=== PATIENT | female | born 1950 | race Caucasian/White ===

== ENCOUNTER → 2020-05-18 10:41 | Outpatient (BNVA) | payer MEDICARE, SELFPAY | PROVIDERS: PCP Family Medicine; Visit Provider Surgery | DX: K64.5 Perianal venous thrombosis (principal) | CPT/HCPCS: 46600; 99202 ==

== ENCOUNTER → 2021-06-02 10:25 | Outpatient (BNVA) | payer MEDICARE, SELFPAY | PROVIDERS: PCP Family Medicine; Visit Provider Anesthesiology | DX: M96.1 Postlaminectomy syndrome, not elsewhere classified (principal); G89.4 Chronic pain syndrome; F32.2 Major depressive disorder, single episode, severe without psychotic features | CPT/HCPCS: 99202 ==

== ENCOUNTER 2022-06-12 13:25 | Inpatient (IN) | payer MEDICARE, SELFPAY ==
--- NOTE | ~2022-06-12 | CT_ITS ---
EXAMINATION: CT ABDOMEN AND PELVIS WITH CONTRAST CLINICAL INFORMATION: Diarrhea and pain COMPARISON: Baseline 07/22/2014 TECHNIQUE: Multidetector volumetric images were obtained from the superior aspect of the liver through the pubic symphysis following administration 85 mL of Omnipaque 350 intravenous contrast. Sagittal and coronal reformatted images were obtained on the technologist's workstation. Oral contrast: No This CT examination was performed using dose optimization techniques as appropriate, variously including the following: *Automated exposure control *Adjustment of mA and/or kV according to patient size (this includes techniques or standardized protocols for targeted exams where dose is matched to indication/reason for exam; i.e. extremities or head) *Use of iterative reconstruction technique DLP: 302 mGy-cm FINDINGS: LUNG BASES: The visualized lung bases are unremarkable. Large axial type hiatus hernia. LIVER, GALLBLADDER, AND BILIARY TREE: The liver is normal in size, shape, and attenuation. No focal hepatic lesion or biliary ductal dilatation is present. The gallbladder is unremarkable with no evidence of radiopaque gallstones, gallbladder wall thickening, or obvious pericholecystic inflammatory changes. PANCREAS: Unremarkable. SPLEEN: Unremarkable. ADRENAL GLANDS: Unremarkable. KIDNEYS AND URETERS: The kidneys are normal in size, shape, and attenuation. No hydronephrosis, hydroureter, or calculi seen. No perinephric stranding. Incidental small renal cortical cysts left mid pole subcentimeter in size. Bosniak 1. No follow-up indicated. BLADDER: Unremarkable. GASTROINTESTINAL TRACT: There is a small bowel resection in the left abdomen with evidence for early obstruction. Please see allan image. In addition, there is relative sequentially thick-walled colon noted within the right pelvis which warrants lower GI assessment to exclude a mass. No obstruction. No enlarged lymph nodes. ABDOMINAL WALL: No significant hernia is appreciated. LYMPH NODES: Normal. VASCULAR: Unremarkable. PELVIC VISCERA: Unremarkable. OSSEOUS STRUCTURES: Vertebroplasty changes L3 with moderate compression. Superior endplate compression L4. Similar finding L1. Notable compression of the T10 vertebral body seen in a limited fashion. Healed deformity of the left pubic bone. CT/CT abdomen pelvis w IV con IMPRESSION: 1. Evidence for early small bowel obstruction with transition point within the left abdomen where there is a small bowel intussusception. Surgical assessment indicated. Please see allan image. 2. Thick-walled colon within the right pelvis within the sigmoid colon which warrants lower GI assessment to exclude a mass. 3. Multiple compression fractures as above. Fleischner guidelines were followed.
--- NOTE | ~2022-06-12 | CT_ITS ---
EXAMINATION: CT ABDOMEN AND PELVIS WITH CONTRAST CLINICAL INFORMATION: Intussusception. Question small bowel obstruction. COMPARISON: Previous CT of the abdomen and pelvis 06/12/2022 TECHNIQUE: Multidetector volumetric images were obtained from the superior aspect of the liver through the pubic symphysis following administration 85 mL of Omnipaque 350 intravenous contrast. Sagittal and coronal reformatted images were obtained on the technologist's workstation. Oral contrast: Yes This CT examination was performed using dose optimization techniques as appropriate, variously including the following: *Automated exposure control *Adjustment of mA and/or kV according to patient size (this includes techniques or standardized protocols for targeted exams where dose is matched to indication/reason for exam; i.e. extremities or head) *Use of iterative reconstruction technique DLP: 164 mGy-cm FINDINGS: LUNG BASES: Esophageal hernia. Mild subsegmental atelectasis at the right lung base. LIVER, GALLBLADDER, AND BILIARY TREE: The liver is normal in size, shape, and attenuation. No focal hepatic lesion or biliary ductal dilatation is present. The gallbladder is unremarkable with no evidence of radiopaque gallstones, gallbladder wall thickening, or obvious pericholecystic inflammatory changes. PANCREAS: Unremarkable. SPLEEN: Unremarkable. ADRENAL GLANDS: Unremarkable. KIDNEYS AND URETERS: The kidneys are normal in size, shape, and attenuation. No hydronephrosis, hydroureter, or calculi seen. Small left renal cyst. No imaging follow-up needed. BLADDER: Unremarkable. GASTROINTESTINAL TRACT: Small bowel into the exception is no longer seen. There is no evidence of obstruction. There is question area of wall thickening of the small bowel in the left lower quadrant axial image 46 series 3. No definite small bowel lesion is appreciated. There is diffuse wall thickening and edema of the colon suggestive of colitis. The appendix is not seen. There is a large esophageal hernia. ABDOMINAL WALL: 1.5 x 2.3 cm small cyst or fluid collection in the right groin, question representing hernia containing fluid versus degeneration lymph node. This could be better assessed with ultrasound if clinically indicated. LYMPH NODES: Normal. VASCULAR: Severe atherosclerotic disease. No aneurysm. PELVIC VISCERA: Unremarkable. OSSEOUS STRUCTURES: Old trauma to the pelvis. Old L3 compression fracture and cement augmentation. Mild old L1 and L4 compression fractures. Moderate to severe old T10 compression fracture. CT/CT abdomen pelvis w IV con IMPRESSION: Small bowel intussusception no longer seen. Question area of wall thickening of the small bowel in the left lower quadrant in the region of previous intussusception. No definite small bowel mass appreciated. Diffuse wall thickening of the colon suggestive of colitis. Large esophageal hernia. Stable multiple compression fractures and evidence of old trauma to the pelvis. Question small right groin hernia containing fluid versus cystic lymph node.. Fleischner guidelines were followed.
--- NOTE | 2022-06-12 15:20 | ED.GENADULT ---
HPI - General Adult General Chief complaint: Nausea/Vomiting/Diarrhea <TYSON Helton - Last Filed: 06/12/22 15:37> Stated complaint: ibs, constant bowel movements. <TYSON Helton - Last Filed: 06/12/22 15:37> Time Seen by Provider: 06/12/22 16:14 <TYSON Helton - Last Filed: 06/12/22 15:37> Source: patient <TYSON Serna - Last Filed: 06/12/22 18:12> Mode of arrival: wheelchair <TYSON Serna Last Filed: 06/12/22 18:12> History of Present Illness HPI narrative: 72-year-old female with a past medical history of anxiety, chronic pain syndrome, HTN, post-laminectomy syndrome, depression, IBS, diverticulitis, presenting to the ED complaining of persistent nonbloody liquid diarrhea x4 days s/p finishing course of Augmentin and Prednisone for sinusitis. Admits to being incontinent of stool in her bed in all over her carpet. Reports generalized abdominal discomfort, fatigue/ weakness and lightheadedness. Denies bloody stools/ melena, headache, CP /SOB, nausea, vomiting, dysuria /hematuria <TYSON Serna Last Filed: 06/12/22 18:12> Onset (ago): day(s) <TYSON Serna - Last Filed: 06/12/22 18:12> Related Data Home medications: Home Medications Medication Instructions Recorded Confirmed ibuprofen 800 mg tablet 800 mg PO BID 05/18/20 06/12/22 lisinopril 20 mg tablet 20 mg PO DAILY 05/18/20 06/12/22 lorazepam 1 mg tablet 1 mg PO BID 05/18/20 06/12/22 pantoprazole 40 mg tablet,delayed 40 mg PO BID 05/18/20 06/12/22 release amlodipine 10 mg tablet 1 tab PO DAILY 06/12/22 06/12/22 duloxetine 30 mg capsule,delayed 1 cap PO BID 06/12/22 06/12/22 release sertraline 50 mg tablet 1 tab PO BID 06/12/22 06/12/22 <TYSON Helton Last Filed: 06/12/22 15:37> Allergies/adverse reactions: Allergies Allergy/AdvReac Type Severity Reaction Status Date / Time Sulfa (Sulfonamide Allergy Intermediate ITCHING/DARSHAN Unverified 06/02/21 10:57 Antibiotics) H [SULFA (SULFONAMIDE ANTIBIOTICS)] oxycodone [Percocet] Allergy Unknown Unknown Verified 06/02/21 10:57 sulfadiazine Allergy Unknown Unknown Verified 06/02/21 10:57 tree nut [TREE NUT] AdvReac Intermediate GI UPSET Unverified 06/02/21 10:57 acetaminophen [From PERCOCET] AdvReac Unknown NAUSEA Unverified 06/02/21 10:57 Flonase Allergy Unknown Unknown Uncoded 06/02/21 10:57 ZyrTEC Allergy Unknown Unknown Uncoded 06/02/21 10:57 From DEMEROL AdvReac Unknown NAUSEA Uncoded 06/02/21 10:57 From PERCOCET AdvReac Unknown NAUSEA Uncoded 06/02/21 10:57 <TYSON Helton - Last Filed: 06/12/22 15:37> Review of Systems Review of Systems: Constitutional: No Fever, No Chills, +Fatigue, + Malaise ENT/Mouth: No Hearing loss, No Ear Pain, No Nasal Congestion, No Sinus Pain, No Hoarseness, No sore throat, No Rhinorrhea, No Swallowing Difficulty Eyes: No Eye Pain, No Swelling, No Redness, No Vision Changes Cardiovascular: No Chest Pain, No SOB, No Edema, No Palpitations Respiratory: No Cough, No Sputum, No Dyspnea Gastrointestinal: No Nausea, No Vomiting, + Diarrhea, No Constipation, + Abdominal pain, No Hematochezia, No Melena Genitourinary: No irregular bleeding, No Dysuria, No Urinary Frequency, No Hematuria, No Urinary Incontinence/retention, No Flank Pain Musculoskeletal: No joint pain, No Myalgias, No Joint Swelling Skin: No Skin Lesions, No rash Neuro: + Weakness, No Numbness, No Loss of Consciousness, No Dizziness, No Headache <TYSON Serna Last Filed: 06/12/22 18:12> Yes all other systems are reviewed and are negative <TYSON Serna Last Filed: 06/12/22 18:12> Constitutional: Constitutional: Reports as per HPI <TYSON Serna - Last Filed: 06/12/22 18:12> Neurologic: Denies Abnormal speech present <TYSON Serna - Last Filed: 06/12/22 18:12> [facility] Past Medical History Attestation statement: The following information was validated with the patient. <TYSON Serna - Last Filed: 06/12/22 18:12> Medical History: Medical History Anxiety Chronic pain syndrome Hypertension Postlaminectomy syndrome Severe major depression Thrombosed hemorrhoids <TYSON Helton - Last Filed: 06/12/22 15:37> Surgical History: Surgical History History of bunionectomy History of D&C History of foot surgery History of hammer toe correction History of hand surgery <TYSON Helton - Last Filed: 06/12/22 15:37> Family History Family History: Family History Father Hypertension Heart disease Mother History of lumpectomy <TYSON Helton - Last Filed: 06/12/22 15:37> Social History Social History: Social History Alcohol intake: current Alcohol intake frequency: holidays/special occasions only Alcohol type: wine Advance Directives: No Advance Directives Information Provided: No <TYSON Helton - Last Filed: 06/12/22 15:37> Physical Exam ED Vital Signs: Vital Signs - 24 hr 06/12/22 15:21 06/12/22 19:16 Temperature 98 F 98.9 F Pulse Rate 100 95 Respiratory Rate 16 16 Blood Pressure 83/51 L 129/52 L Pulse Oximetry 99 98 Oxygen Delivery Method Room Air Room Air BMI result Body Mass Index 18.4 <TYSON Helton - Last Filed: 06/12/22 15:37> Vital Signs - 24 hr 06/12/22 15:21 06/12/22 19:16 Temperature 98 F 98.9 F Pulse Rate 100 95 Respiratory Rate 16 16 Blood Pressure 83/51 L 129/52 L Pulse Oximetry 99 98 Oxygen Delivery Method Room Air Room Air BMI result Body Mass Index 18.4 <TYSON Serna - Last Filed: 06/12/22 18:12> Vital Signs - 24 hr 06/12/22 15:21 06/12/22 19:16 Temperature 98 F 98.9 F Pulse Rate 100 95 Respiratory Rate 16 16 Blood Pressure 83/51 L 129/52 L Pulse Oximetry 99 98 Oxygen Delivery Method Room Air Room Air BMI result Body Mass Index 18.4 <TYSON Ring - Last Filed: 06/12/22 19:26> Const General: cooperative, no acute distress, alert and awake <TYSON Serna - Last Filed: 06/12/22 18:12> Orientation/consciousness: patient oriented x3 <TYSON Serna - Last Filed: 06/12/22 18:12> Limitations: no limitations <TYSON Serna - Last Filed: 06/12/22 18:12> HENMT Head: Yes normal to inspection and Yes atraumatic <TYSON Serna - Last Filed: 06/12/22 18:12> Ears: hearing grossly normal bilaterally <TYSON Serna - Last Filed: 06/12/22 18:12> General nose exam: Normal external nose present <TYSON Serna - Last Filed: 06/12/22 18:12> Face and sinus: Yes normal facial exam <TYSON Serna - Last Filed: 06/12/22 18:12> Eyes General: appearance normal, both eyes and all related structures <TYSON Serna - Last Filed: 06/12/22 18:12> EOM: EOMs intact bilaterally <TYSON Serna - Last Filed: 06/12/22 18:12> Neck Neck: Yes normal visual inspection and Yes no meningeal signs <TYSON Serna - Last Filed: 06/12/22 18:12> Resp Effort & Inspection: normal respiratory effort and no respiratory distress <TYSON Serna - Last Filed: 06/12/22 18:12> Auscultation: clear to auscultation bilaterally, no crackles, no rales, no rhonchi and no wheezes <Kathy Chaparro PA - Last Filed: 06/12/22 18:12> Cardio Rate: regular rate <Kathy Pouljuan PA - Last Filed: 06/12/22 18:12> Heart sounds: S1 normal heart sound present and S2 normal heart sound present <Kathy Chaparro PA - Last Filed: 06/12/22 18:12> GI Inspection: Yes normal to inspection <Kathy Chaparro PA - Last Filed: 06/12/22 18:12> Palpation (GI): Soft to palpation, Tenderness to palpation present (GI) (diffusely) with no rebound tenderness, no guarding and not rigid <Kathy Chaparro PA - Last Filed: 06/12/22 18:12> General: Yes no CVA tenderness <Kathy Chaparro PA - Last Filed: 06/12/22 18:12> Back/Spine/Pelvis Back: no CVA tenderness <Kathy Chaparro PA - Last Filed: 06/12/22 18:12> Skin Rashes: no rashes <Kathy Chaparro PA - Last Filed: 06/12/22 18:12> Wounds: no wounds <Kathy Chaparro PA - Last Filed: 06/12/22 18:12> Neuro General: patient oriented x3, tone normal, moves all extremities and no meningeal signs <Kathy Chaparro PA - Last Filed: 06/12/22 18:12> Cognition (Neuro): normal cognition <Kathy Chaparro PA - Last Filed: 06/12/22 18:12> Speech: No Abnormal speech present <Kathy Chaparro PA - Last Filed: 06/12/22 18:12> Extrem General: Yes normal to inspection <Kathy Chaparro PA - Last Filed: 06/12/22 18:12> Course Course Course Narrative: RME - 72 yo female with history of anxiety, HTN, hemorrhoids, depression, chronic pain syndrome, IBS w/ diarrhea (follows w/ Ty) who presents to the ER for evaluation of liquid stool for the last 4 days. She states she was incontinence . Has been sick for 5 weeks with sneezing, runny nose, congestion and recently treated with abx and steroids. She was incontinent of stool in her bed and on the floor because she couldn't make it in time. She feels weak and unwell. In triage BP soft 80/50s, awake and alert but appears frail and unwell. Will get GI workup, stool studies including C diff, start IVF resuscitation. <TYSON Helton - Last Filed: 06/12/22 15:37> RME - 72 yo female with history of anxiety, HTN, hemorrhoids, depression, chronic pain syndrome, IBS w/ diarrhea (follows w/ Ty) who presents to the ER for evaluation of liquid stool for the last 4 days. She states she was incontinence . Has been sick for 5 weeks with sneezing, runny nose, congestion and recently treated with abx and steroids. She was incontinent of stool in her bed and on the floor because she couldn't make it in time. She feels weak and unwell. In triage BP soft 80/50s, awake and alert but appears frail and unwell. Will get GI workup, stool studies including C diff, start IVF resuscitation. 1711-- leukocytosis of 15.0, BUN 23 likely from dehydration. still low suspicion for severe sepsis. Magnesium low 1.5 >> 2 g IV repletion ordered. Lactic acid negative - COVID-19 and influenza negative -1800--ED care transferred to T[facility] Garay pending UA, CT, stool studies and anticipated admission <TYSON Serna - Last Filed: 06/12/22 18:12> Reevaluation(s) Reevaluation #1: Patient noted to be positive for C diff, therefore I did administer metronidazole due to the high suspicion. UA still pending. However, patient will be admitted to the hospital for further intervention and treatment. <TYSON Ring - Last Filed: 06/12/22 19:26> Time: 19:26 <TYSON Ring - Last Filed: 06/12/22 19:26> Medications Administered Discontinued Medications Generic Name Dose Route Start Last Admin Trade Name Freq PRN Reason Stop Dose Admin Sodium Chloride 1,000 mls @ 999 mls/hr 06/12/22 16:30 06/12/22 17:32 Ns IV 06/12/22 17:30 999 mls/hr .Q1H1M POOL Administration Magnesium Sulfate 2 gm in 50 mls @ 25 mls/hr 06/12/22 17:21 06/12/22 19:22 Magnesium Sulfate/H2o IV 06/12/22 19:20 25 mls/hr ONCE ONE Administration Iohexol 100 ml 06/12/22 18:32 06/12/22 18:33 Iohexol 350 Mg/Ml 100 Ml Infus..Btl IV 06/12/22 18:33 85 ml ONCE ONE Administration <TYSON Helton - Last Filed: 06/12/22 15:37> Medications Administered Discontinued Medications Generic Name Dose Route Start Last Admin Trade Name Freq PRN Reason Stop Dose Admin Sodium Chloride 1,000 mls @ 999 mls/hr 06/12/22 16:30 06/12/22 17:32 Ns IV 06/12/22 17:30 999 mls/hr .Q1H1M POOL Administration Magnesium Sulfate 2 gm in 50 mls @ 25 mls/hr 06/12/22 17:21 06/12/22 19:22 Magnesium Sulfate/H2o IV 06/12/22 19:20 25 mls/hr ONCE ONE Administration Iohexol 100 ml 06/12/22 18:32 06/12/22 18:33 Iohexol 350 Mg/Ml 100 Ml Infus..Btl IV 06/12/22 18:33 85 ml ONCE ONE Administration <TYSON Serna - Last Filed: 06/12/22 18:12> Medications Administered Discontinued Medications Generic Name Dose Route Start Last Admin Trade Name Freq PRN Reason Stop Dose Admin Sodium Chloride 1,000 mls @ 999 mls/hr 06/12/22 16:30 06/12/22 17:32 Ns IV 06/12/22 17:30 999 mls/hr .Q1H1M POOL Administration Magnesium Sulfate 2 gm in 50 mls @ 25 mls/hr 06/12/22 17:21 06/12/22 19:22 Magnesium Sulfate/H2o IV 06/12/22 19:20 25 mls/hr ONCE ONE Administration Iohexol 100 ml 06/12/22 18:32 06/12/22 18:33 Iohexol 350 Mg/Ml 100 Ml Infus..Btl IV 06/12/22 18:33 85 ml ONCE ONE Administration <TYSON Ring - Last Filed: 06/12/22 19:26> Medical Decision Making Medical Decision Making MDM Narrative: 72-year-old female with a past medical history of anxiety, chronic pain syndrome, HTN, post-laminectomy syndrome, depression, IBS, diverticulitis, presenting to the ED complaining of persistent nonbloody liquid diarrhea x4 days s/p finishing course of Augmentin and Prednisone for sinusitis. On exam hypotensive and mildly tachycardic likely from dehydration / volume loss, abdomen soft diffusely tender, no rebound or guarding, no pedal edema, no CVA tenderness. Concern for IBS flare vs colitis vs C diff. Concern for metabolic abnormalities and dehydration. Rule out infectious etiology. Low suspicion for severe sepsis at this time Plan: EKG, labs, UA, CT AP, IVF, admission <TYSON Serna - Last Filed: 06/12/22 18:12> Differential Diagnoses: Differential diagnosis ( as above) <TYSON Serna - Last Filed: 06/12/22 18:12> Consideration of admission/observation: Consideration of Admission/Observation <TYSON Serna - Last Filed: 06/12/22 18:12> Lab Attestation: I reviewed the patient's lab results. <TYSON Serna - Last Filed: 06/12/22 18:12> Non-ED record review: Review of External (Non-ED) Record External record reviewed:: Outpatient record, Prior outpatient labs and Prior outpatient radiology <TYSON Serna - Last Filed: 06/12/22 18:12> Critical Care Time Critical Care Time Critical Care Time: Yes <TYSON Serna - Last Filed: 06/12/22 18:12> Total Critical Care Time: 35 <TYSON Serna Last Filed: 06/12/22 18:12> Attestation: I have personally provided critical care time exclusive of time spent on separately billable procedures. Time includes review of lab data, radiology results, discussion with consultants, and monitoring for potential decompensation. Intervention performed as documented. <TYSON Serna Last Filed: 06/12/22 18:12> Discharge Plan Discharge Clinical Impression: Clostridium difficile infection <TYSON Helton - Last Filed: 06/12/22 15:37> Patient Disposition: Admitted As Inpatient <TYSON Helton - Last Filed: 06/12/22 15:37> Prescriptions: No Action amlodipine 10 mg tablet 1 tab PO DAILY sertraline 50 mg tablet 1 tab PO BID duloxetine 30 mg capsule,delayed release(DR/EC) 1 cap PO BID lorazepam 1 mg tablet 1 mg PO BID lisinopril 20 mg tablet 20 mg PO DAILY pantoprazole 40 mg tablet,delayed release (DR/EC) 40 mg PO BID ibuprofen 800 mg tablet 800 mg PO BID <TYSON Helton - Last Filed: 06/12/22 15:37>
[2022-06-12 15:21] VITALS: BP 83/51; PULSE 100; RESP 16; TEMP 36.6; O2SAT 99; BMI 18.4
--- NOTE | 2022-06-12 16:23 | ECG_ITS ---
Test Reason : ABDOMINAL PAIN Blood Pressure : / mmHG Vent. Rate : 096 BPM Atrial Rate : 096 BPM P-R Int : 134 ms QRS Dur : 072 ms QT Int : 372 ms P-R-T Axes : 090 029 104 degrees QTc Int : 469 ms Artifact in tracing Sinus rhythm with Premature atrial complexes Nonspecific ST and T wave abnormality Abnormal ECG When compared with ECG of 15-JAN-2016 11:31, Nonspecific T wave abnormality has replaced inverted T waves in Inferior leads Nonspecific T wave abnormality now evident in Lateral leads Referred By: Kathy Chaparro Electronically Signed By:CUCO RUSH
[2022-06-12 16:24] LABS: Basophils Absolute Auto 0.1 X10*3/uL (0.0-0.2); Basophils Percent Auto 0.3 % (0-2); Eosinophils Percent Auto 0.3 % (0-4); Hematocrit 34.3 % (37.0-47.0); Hemoglobin 11.7 g/dl (12.0-16.0); Imm Gran Abs Auto 0.12 X10*3/uL (0.00-0.03); Imm Gran Pct Auto 0.8 % (0.0-0.4); Lymphocytes Absolute Auto 0.7 X10*3/uL (1.2-4.9); Lymphocytes Percent Auto 4.4 % (20-40); MANUAL DIFF FLAG NO; Mean Corpuscular HGB Conc 34.1 g/dl (31.0-35.0); Mean Corpuscular Hemoglobin 34.9 pg (27.0-33.0); Mean Corpuscular Volume 102.4 fL (80.0-98.0); Mean Platelet Volume 10.6 fL (9.4-12.3); Monocytes Percent Auto 6.4 % (2-11); Neutrophils Absolute Auto 13.2 x10*3/uL (2.0-8.3); Neutrophils Percent Auto 87.8 % (45-73); Platelet Count 233 X10*3/uL (160-400); Red Blood Count 3.35 X10*6/uL (4.20-5.50); Red Cell Distribution Width 17.2 % (11.0-16.0)
[2022-06-12 16:36] LABS: Lactic Acid 1.5 mmol/L (0.5-2.0)
[2022-06-12 16:47] LABS: Alanine Aminotransferase 13 U/L (0-31); Albumin Level 4.1 g/dL (3.5-5.0); Alkaline Phosphatase 76 U/L (39-117); Anion Gap 18 (12-20); Aspartate Amino Transferase 26 U/L (5-31); Bilirubin Direct 0.5 mg/dL (0.0-0.5); Bilirubin Total 1.7 mg/dL (0.0-1.0); Blood Urea Nitrogen 23 mg/dL (9-16); Calcium 9.1 mg/dL (8.4-10.2); Carbon Dioxide 19 mmol/L (22-29); Chloride 103 mmol/L (96-108); Creatinine Clr Calc Pharmacy 28.8; Estimated Glomerular Filt Rate 37; Glucose Random 101 mg/dL (60-115); Magnesium 1.5 mg/dL (1.6-2.6); Potassium 4.4 mmol/L (3.3-5.1); Sodium 136 mmol/L (135-145); Total Protein 6.7 g/dL (6.5-8.0)
[2022-06-12 16:55] LABS: COVID-19 Test Negative (Negative); IDNOW Serial# 55D5AD1C
[2022-06-12 16:56] LABS: IDNOW Serial# 9DB6401D; Influenza A Negative (Negative); Influenza B2 Negative (Negative)
[2022-06-12 17:06] LABS: Lipase 29 U/L (8-78)
[2022-06-12] MEDS: 0.9 % Sodium Chloride 1,000 ML 999 ML IV (17:32)
[2022-06-12 17:38] LABS: C Reactive Protein 10.11 mg/dL (< or = 0.50)
--- NOTE | 2022-06-12 18:04 | PHA.MEDREC ---
Pharmacy Consult ? Medication Reconciliation Pharmacy has completed the medication reconciliation.
[2022-06-12] MEDS: iohexoL 350 MG/ML 100 ML INFUS..BTL IV (18:33)
--- NOTE | 2022-06-12 18:40 | PC.NURSE ---
#20 IN RIGHT AC WITHOUT COMPLICATIONS. EKG AND UA ALONG WITH BLOOD CULTURES CAN BE DONE ON VEHICLE TRIMMER
[2022-06-12 18:59] LABS: CDiff Gene PCR POSITIVE (Negative)
[2022-06-12 19:16] VITALS: BP 129/52; PULSE 95; RESP 16; TEMP 37.2; O2SAT 98
[2022-06-12] MEDS: Magnesium Sulfate/H2O 2 GM/50 ML PIGGYBACK IV (19:22)
[2022-06-12] MEDS: Lactated Ringers 1,000 ML 999 ML IV (19:25)
[2022-06-12 19:40] LABS: Appearance Urine Clear; Color Urine Yellow; Glucose Urine UA Negative (Negative); Leukocyte Esterase Urine Negative (Negative); Nitrite Urine Negative (Negative); Specific Gravity - Urine >= 1.030 (1.005-1.025); Urine Blood Negative (Negative); Urine Ketones Negative (Negative); Urine Protein Negative (Neg-Trace)
[2022-06-12 20:00] VITALS: BP 154/62; PULSE 79; RESP 16; TEMP 36.9; O2SAT 97
[2022-06-12] MEDS: metroNIDAZOLE/NS 500 MG/100 ML PIGGYBACK 100 MG IV (20:02)
[2022-06-12 20:07] LABS: CDIFF Internal ctrl Dots and bkg OK (V)
[2022-06-12 20:09] LABS: CDiff Toxin Positive (Negative)
[2022-06-12] MEDS: Fidaxomicin 200 MG TABLET PO (20:17)
--- NOTE | 2022-06-12 21:52 | P.HPHOSP_ITS ---
History of Present Illness Date of Service: 06/12/22 Chief Complaint: diarrhea This is a 72-year-old female with pertinent history of essential hypertension, generalized anxiety disorder/major depressive disorder presents to the emergency department for evaluation of diarrhea. Patient states it started 4 days ago and has progressively worsened. On the day of presentation, she had multiple episodes of nonbloody diarrhea. Patient finished p.o. Augmentin for sinusitis about 5 days ago. Also feels weak and dehydrated due to multiple episodes of diarrhea. Admits nausea but no vomiting. Also has associated generalized discomfort in the abdomen. Patient denies melena, hematochezia, chest discomfort, palpitations, shortness of breath, changes in urinary habits. No history of C diff. Does have history of IBS. Review of Systems Constitutional: Constitutional: Reports fatigue, Reports lethargy and Reports malaise Cardiovascular: Cardiovascular: Reports no additional cardiovascular complaints Respiratory: Respiratory: Reports no additional respiratory complaints Gastrointestinal: Gastrointestinal: Reports change in stool character, Reports GI cramping and Reports nausea Genitourinary: Genitourinary: Reports no additional female genitourinary complaints Endocrine: Endocrine: Reports fatigue PMFSH Medical History Anxiety Chronic pain syndrome Hypertension Postlaminectomy syndrome Severe major depression Thrombosed hemorrhoids Family History Father Hypertension Heart disease Mother History of lumpectomy Surgical History History of bunionectomy History of D&C History of foot surgery History of hammer toe correction History of hand surgery Social History Alcohol intake: current Alcohol intake frequency: 0-2 drinks per day Alcohol type: wine Smoked in Last 30 Days: Yes Use of substances other than those prescribed or required for medical reasons: No Advance Directives: No Advance Directives Information Provided: No Meds Allergies Allergy/AdvReac Type Severity Reaction Status Date / Time Sulfa (Sulfonamide Allergy Intermediate ITCHING/DARSHAN Unverified 06/02/21 10:57 Antibiotics) H [SULFA (SULFONAMIDE ANTIBIOTICS)] oxycodone [Percocet] Allergy Unknown Unknown Verified 06/02/21 10:57 sulfadiazine Allergy Unknown Unknown Verified 06/02/21 10:57 tree nut [TREE NUT] AdvReac Intermediate GI UPSET Unverified 06/02/21 10:57 acetaminophen [From PERCOCET] AdvReac Unknown NAUSEA Unverified 06/02/21 10:57 Flonase Allergy Unknown Unknown Uncoded 06/02/21 10:57 ZyrTEC Allergy Unknown Unknown Uncoded 06/02/21 10:57 From DEMEROL AdvReac Unknown NAUSEA Uncoded 06/02/21 10:57 From PERCOCET AdvReac Unknown NAUSEA Uncoded 06/02/21 10:57 Active Medications: Current Medications Fidaxomicin (Fidaxomicin 200 Mg Tablet) 200 mg PO Q12H POOL Last Admin: 06/12/22 20:17 Dose: 200 mg Home Medications Medication Instructions Recorded Confirmed Last Taken Type ibuprofen 800 mg tablet 800 mg PO BID 05/18/20 06/12/22 06/12/22 History lisinopril 20 mg tablet 20 mg PO DAILY 05/18/20 06/12/22 06/12/22 History lorazepam 1 mg tablet 1 mg PO BID 05/18/20 06/12/22 06/12/22 History pantoprazole 40 mg tablet,delayed 40 mg PO BID 05/18/20 06/12/22 06/12/22 History release amlodipine 10 mg tablet 1 tab PO DAILY 06/12/22 06/12/22 06/12/22 History duloxetine 30 mg capsule,delayed 1 cap PO BID 06/12/22 06/12/22 06/12/22 History release sertraline 50 mg tablet 1 tab PO BID 06/12/22 06/12/22 06/12/22 History Physical Exam Vital Signs and Narrative: Vital Signs: Last Vital Signs Temp 98.4 F 06/12/22 20:00 Pulse 79 06/12/22 20:00 Resp 16 06/12/22 20:00 BP 154/62 H 06/12/22 20:00 Pulse Ox 97 06/12/22 20:00 O2 Del Method 06/12/22 20:00 BMI result Body Mass Index 18.4 Elderly female lying in bed in no distress Neck supple, no JVD Regular rate and rhythm, S1-S2 heard Regular breath sounds bilaterally, no wheezing or crackles appreciated Abdomen soft nontender, no guarding, no rigidity Patient is awake, alert and oriented to self, place, time and person ; no focal motor deficit Psych: Normal mood No pedal edema Results Labs CBC and Chem 7: 06/12/22 16:15 06/12/22 16:15 Labs: Laboratory Results - last 24 hr 06/12/22 06/12/22 06/12/22 16:15 16:15 16:15 MCV 102.4 H MCH 34.9 H MCHC 34.1 RDW 17.2 H Plt Count 233 MPV 10.6 Immature Gran % (Auto) 0.8 H Neut % (Auto) 87.8 H Lymph % (Auto) 4.4 L [place] % (Auto) 6.4 Eos % (Auto) 0.3 Baso % (Auto) 0.3 Lymph # (Auto) 0.7 L [place] # (Auto) 1.0 Eos # (Auto) 0.0 Baso # (Auto) 0.1 Abs Immat Gran (auto) 0.12 H Absolute Neuts (auto) 13.2 H Absolute Nucleated RBC 0.000 Nucleated RBC % (auto) 0.0 Anion Gap 18 Estim Creat Clear Calc 28.8 Estimated GFR 37 Random Glucose 101 Lactic Acid 1.5 Calcium 9.1 Magnesium 1.5 L Total Bilirubin 1.7 H Direct Bilirubin 0.5 AST 26 ALT 13 Alkaline Phosphatase 76 C-Reactive Protein 10.11 H Total Protein 6.7 Albumin 4.1 Lipase 29 Urine Color Urine Appearance Urine pH Ur Specific [place] Urine Protein Urine Glucose (UA) Urine Ketones Urine Blood Urine Nitrite Ur Leukocyte Esterase C. difficile Tox B Gene C. difficile Toxin A&B C. difficile Interpret COVID-19 (NAT) COVID-19 Clin Com Influenza Type A (TRICIA) Influenza Type B (TRICIA) Influenza A & B Note 06/12/22 06/12/22 06/12/22 16:15 16:15 17:46 MCV MCH MCHC RDW Plt Count MPV Immature Gran % (Auto) Neut % (Auto) Lymph % (Auto) [place] % (Auto) Eos % (Auto) Baso % (Auto) Lymph # (Auto) [place] # (Auto) Eos # (Auto) Baso # (Auto) Abs Immat Gran (auto) Absolute Neuts (auto) Absolute Nucleated RBC Nucleated RBC % (auto) Anion Gap Estim Creat Clear Calc Estimated GFR Random Glucose Lactic Acid Calcium Magnesium Total Bilirubin Direct Bilirubin AST ALT Alkaline Phosphatase C-Reactive Protein Total Protein Albumin Lipase Urine Color Urine Appearance Urine pH Ur Specific [place] Urine Protein Urine Glucose (UA) Urine Ketones Urine Blood Urine Nitrite Ur Leukocyte Esterase C. difficile Tox B Gene POSITIVE A* C. difficile Toxin A&B Positive A* C. difficile Interpret SEE NOTE COVID-19 (NAT) Negative COVID-19 Clin Com See Note Influenza Type A (TRICIA) Negative Influenza Type B (TRICIA) Negative Influenza A & B Note See Note 06/12/22 19:30 MCV MCH MCHC RDW Plt Count MPV Immature Gran % (Auto) Neut % (Auto) Lymph % (Auto) [place] % (Auto) Eos % (Auto) Baso % (Auto) Lymph # (Auto) [place] # (Auto) Eos # (Auto) Baso # (Auto) Abs Immat Gran (auto) Absolute Neuts (auto) Absolute Nucleated RBC Nucleated RBC % (auto) Anion Gap Estim Creat Clear Calc Estimated GFR Random Glucose Lactic Acid Calcium Magnesium Total Bilirubin Direct Bilirubin AST ALT Alkaline Phosphatase C-Reactive Protein Total Protein Albumin Lipase Urine Color Yellow Urine Appearance Clear Urine pH 6.0 Ur Specific [place] >= 1.030 H Urine Protein Negative Urine Glucose (UA) Negative Urine Ketones Negative Urine Blood Negative Urine Nitrite Negative Ur Leukocyte Esterase Negative C. difficile Tox B Gene C. difficile Toxin A&B C. difficile Interpret COVID-19 (NAT) COVID-19 Clin Com Influenza Type A (TRICIA) Influenza Type B (TRICIA) Influenza A & B Note Imaging Radiologist's Impressions: Impressions Abdomen/Pelvis CT 06/12/22 18:46 IMPRESSION: 1. Evidence for early small bowel obstruction with transition point within the left abdomen where there is a small bowel intussusception. Surgical assessment indicated. Please see allan image. 2. Thick-walled colon within the right pelvis within the sigmoid colon which warrants lower GI assessment to exclude a mass. 3. Multiple compression fractures as above. Fleischner guidelines were followed. Assessment and Plan (1) Clostridium difficile infection: Status: Acute (2) Hypertension: Status: Acute (3) Anxiety: Status: Acute (4) Severe major depression: Status: Acute Plan This is a 72-year-old female with pertinent history of essential hypertension, generalized anxiety disorder/major depressive disorder presents to the emergency department for evaluation of diarrhea. #. Non severe C diff, initial episode: Will admit patient with contact precautions. Initiating fidaxomicin p.o.. Consulted Infectious Disease. Resuscitated with IV crystalloids in the ER. CT abdomen/pelvis pending #. Generalized weakness in the setting of above #. Essential hypertension: Hold p.o. antihypertensives, restart as appropriate #. Mood disorder: Continue home p.o. medications #. Chronic macrocytic anemia: Obtain B12 and folate #. Hypomagnesemia due to GI losses: Repleted DVT prophylaxis: Lovenox 30 mg daily Cardiac diet Full code Admit as inpatient and will require two night minimum hospital stay for IV fluid resuscitation and close monitoring of hemodynamics. Time Spent With Patient Time: Total time managing care of this patient today ____ minutes. Quality Stroke Does the patient have a stroke diagnosis?: No VTE Prior VTE?: No VTE Risk Level:: Medical - moderate - high VTE Device Contraindication: Treatment Not Indicated VTE Drug Contraindication: N/A - Med Ordered
[2022-06-12] MEDS: Enoxaparin Sodium 30 MG/0.3 ML SYRINGE SUBCUT (22:22)
[2022-06-12] MEDS: Acetaminophen 325 MG TABLET 650 MG PO (22:22)
--- NOTE | 2022-06-12 22:51 | PC.NURSE ---
Addendum entered by Martha Livingston RN 06/13/22 06:53: pt had total of 3 liquid bowel movement. pt unable to control bowel. incontinent care provided with Tech Dav precaution maintained Original Note: report received from PARDEEP Barajas pt is alert and oriented resting in bed no signs of acute distress notice
[2022-06-13 04:56] LABS: MANUAL DIFF FLAG NO
[2022-06-13 05:15] LABS: Anion Gap 13 (12-20); Blood Urea Nitrogen 21 mg/dL (9-16); Calcium 8.3 mg/dL (8.4-10.2); Carbon Dioxide 20 mmol/L (22-29); Chloride 108 mmol/L (96-108); Creatinine Clr Calc Pharmacy 46.2; Estimated Glomerular Filt Rate > 60; Glucose Random 107 mg/dL (60-115); Potassium 3.7 mmol/L (3.3-5.1); Sodium 137 mmol/L (135-145)
[2022-06-13 05:26] LABS: Basophils Absolute Auto 0.1 X10*3/uL (0.0-0.2); Basophils Percent Auto 0.4 % (0-2); Eosinophils Percent Auto 0.2 % (0-4); Hematocrit 31.9 % (37.0-47.0); Hemoglobin 10.5 g/dl (12.0-16.0); Imm Gran Abs Auto 0.11 X10*3/uL (0.00-0.03); Imm Gran Pct Auto 0.8 % (0.0-0.4); Lymphocytes Absolute Auto 0.8 X10*3/uL (1.2-4.9); Lymphocytes Percent Auto 5.6 % (20-40); Mean Corpuscular HGB Conc 32.9 g/dl (31.0-35.0); Mean Corpuscular Hemoglobin 31.8 pg (27.0-33.0); Mean Corpuscular Volume 96.7 fL (80.0-98.0); Monocytes Percent Auto 6.8 % (2-11); Neutrophils Absolute Auto 12.3 x10*3/uL (2.0-8.3); Neutrophils Percent Auto 86.2 % (45-73); Platelet Count 201 X10*3/uL (160-400); Red Cell Distribution Width 14.9 % (11.0-16.0); White Blood Count 14.2 X10*3/uL (4.8-10.8)
[2022-06-13 08:09] LABS: Folate 8.8 ng/mL (> or = 4.0); Vitamin B12 375 pg/mL (200-900)
--- NOTE | 2022-06-13 08:43 | HO.PM.IMPN ---
Subjective Subjective Date of Service: 06/13/22 <TYSON Mera - Last Filed: 06/13/22 12:30> 06/16/22 <Darian Oswald MD - Last Filed: 06/16/22 10:22> Interval History: Pt seen for f/u for diarrhea x4 days, c-diff positive Interval history: Patient's CT came back with evidence for small bowel obstruction transition point within the left abdomen and also possible small bowel intussusception. Also found sigmoid colon within the right pelvis within the sigmoid colon which warrants further GI assessment to exclude a mass. Patient be made NPO and general surgery consulted. Patient seen and evaluated at bedside. Patient reports continued nausea and occasional diarrhea. No vomiting. Abdominal pain diffuse but more on the left side rated 7/10. <TYSON Mera - Last Filed: 06/13/22 12:30> Review of Systems Diffuse abdominal pain, worse on the left Nausea Diarrhea Denies vomiting Denies F/C <TYSON Mera - Last Filed: 06/13/22 12:30> Review of Systems: Yes all other systems are reviewed and are negative <TYSON Mera - Last Filed: 06/13/22 12:30> Physical Exam Vital Signs: Vital Signs: Last Vital Signs Temp 98.4 F 06/12/22 20:00 Pulse 79 06/12/22 20:00 Resp 16 06/12/22 20:00 BP 154/62 H 06/12/22 20:00 Pulse Ox 97 06/12/22 20:00 O2 Del Method 06/12/22 20:00 BMI result Body Mass Index 18.4 <TYSON Mera - Last Filed: 06/13/22 12:30> General: AOx3, no acute distress Resp: CTA bilaterally CVS: S1, S2, RRR GI: hyperactive BS, diffusely tender Skin: No rash Neuro: Motor grossly intact Psych: Appropriate affect <TYSON Mera Last Filed: 06/13/22 12:30> Objective Data Active Medications Acetaminophen (Acetaminophen 325 Mg Tablet) 650 mg PO Q6H PRN PRN Reason: Pain, Mild (Pain Scale 1-3) Last Admin: 06/12/22 22:22 Dose: 650 mg Documented By: CIRO Duloxetine HCl (Duloxetine Hcl 30 Mg Capsule.Dr) 30 mg PO BID [facility] Enoxaparin Sodium (Enoxaparin Sodium 30 Mg/0.3 Ml Syringe) 30 mg SUBCUT Q24H [facility] Last Admin: 06/12/22 22:22 Dose: 30 mg Documented By: CIRO Fidaxomicin (Fidaxomicin 200 Mg Tablet) 200 mg PO Q12H [facility] Last Admin: 06/12/22 20:17 Dose: 200 mg Documented By: CIRO Lorazepam (Lorazepam 1 Mg Tablet) 1 mg PO BID [facility] Melatonin (Melatonin 3 Mg Tablet) 6 mg PO BEDTIME PRN PRN Reason: Insomnia Omeprazole (Omeprazole 20 Mg Capsule.Dr) 20 mg PO BID [facility] Ondansetron HCl (Ondansetron Hcl 4 Mg/2 Ml Vial) 4 mg IVPUSH Q8H PRN PRN Reason: Nausea and Vomiting Sertraline HCl (Sertraline Hcl 50 Mg Tablet) 50 mg PO BID [facility] Sodium Chloride (0.9 % Sodium Chloride Flush 3 Ml Syringe) 3 ml IVFLUSH QSHIFT [facility] Last Admin: 06/12/22 23:23 Dose: Not Given Documented By: N-ANICL Non-Admin Reason: Previously Administered <TYSON Mera - Last Filed: 06/13/22 12:30> Labs CBC & Chem 7: : 06/16/22 06:11 06/16/22 06:11 <TYSON Mera - Last Filed: 06/13/22 12:30> Labs: Laboratory Results - last 24 hr 06/12/22 06/12/22 06/12/22 16:15 16:15 16:15 MCV 102.4 H MCH 34.9 H MCHC 34.1 RDW 17.2 H Plt Count 233 MPV 10.6 Immature Gran % (Auto) 0.8 H Neut % (Auto) 87.8 H Lymph % (Auto) 4.4 L Knox % (Auto) 6.4 Eos % (Auto) 0.3 Baso % (Auto) 0.3 Lymph # (Auto) 0.7 L Knox # (Auto) 1.0 Eos # (Auto) 0.0 Baso # (Auto) 0.1 Abs Immat Gran (auto) 0.12 H Absolute Neuts (auto) 13.2 H Absolute Nucleated RBC 0.000 Nucleated RBC % (auto) 0.0 Anion Gap 18 Estim Creat Clear Calc 28.8 Estimated GFR 37 Random Glucose 101 Lactic Acid 1.5 Calcium 9.1 Magnesium 1.5 L Total Bilirubin 1.7 H Direct Bilirubin 0.5 AST 26 ALT 13 Alkaline Phosphatase 76 C-Reactive Protein 10.11 H Total Protein 6.7 Albumin 4.1 Lipase 29 Vitamin B12 Folate Urine Color Urine Appearance Urine pH Ur Specific [place] Urine Protein Urine Glucose (UA) Urine Ketones Urine Blood Urine Nitrite Ur Leukocyte Esterase C. difficile Tox B Gene C. difficile Toxin A&B C. difficile Interpret COVID-19 (NAT) COVID-19 Clin Com Influenza Type A (TRICIA) Influenza Type B (TRICIA) Influenza A & B Note 06/12/22 06/12/22 06/12/22 16:15 16:15 16:15 MCV MCH MCHC RDW Plt Count MPV Immature Gran % (Auto) Neut % (Auto) Lymph % (Auto) Knox % (Auto) Eos % (Auto) Baso % (Auto) Lymph # (Auto) Knox # (Auto) Eos # (Auto) Baso # (Auto) Abs Immat Gran (auto) Absolute Neuts (auto) Absolute Nucleated RBC Nucleated RBC % (auto) Anion Gap Estim Creat Clear Calc Estimated GFR Random Glucose Lactic Acid Calcium Magnesium Total Bilirubin Direct Bilirubin AST ALT Alkaline Phosphatase C-Reactive Protein Total Protein Albumin Lipase Vitamin B12 375 Folate 8.8 Urine Color Urine Appearance Urine pH Ur Specific [place] Urine Protein Urine Glucose (UA) Urine Ketones Urine Blood Urine Nitrite Ur Leukocyte Esterase C. difficile Tox B Gene C. difficile Toxin A&B C. difficile Interpret COVID-19 (NAT) Negative COVID-19 Clin Com See Note Influenza Type A (TRICIA) Negative Influenza Type B (TRICIA) Negative Influenza A & B Note See Note 06/12/22 06/12/22 06/13/22 17:46 19:30 04:25 MCV 96.7 D MCH 31.8 MCHC 32.9 RDW 14.9 Plt Count 201 MPV 11.0 Immature Gran % (Auto) 0.8 H Neut % (Auto) 86.2 H Lymph % (Auto) 5.6 L Knox % (Auto) 6.8 Eos % (Auto) 0.2 Baso % (Auto) 0.4 Lymph # (Auto) 0.8 L Knox # (Auto) 1.0 Eos # (Auto) 0.0 Baso # (Auto) 0.1 Abs Immat Gran (auto) 0.11 H Absolute Neuts (auto) 12.3 H Absolute Nucleated RBC 0.000 Nucleated RBC % (auto) 0.0 Anion Gap Estim Creat Clear Calc Estimated GFR Random Glucose Lactic Acid Calcium Magnesium Total Bilirubin Direct Bilirubin AST ALT Alkaline Phosphatase C-Reactive Protein Total Protein Albumin Lipase Vitamin B12 Folate Urine Color Yellow Urine Appearance Clear Urine pH 6.0 Ur Specific [place] >= 1.030 H Urine Protein Negative Urine Glucose (UA) Negative Urine Ketones Negative Urine Blood Negative Urine Nitrite Negative Ur Leukocyte Esterase Negative C. difficile Tox B Gene POSITIVE A* C. difficile Toxin A&B Positive A* C. difficile Interpret SEE NOTE COVID-19 (NAT) COVID-19 Clin Com Influenza Type A (TRICIA) Influenza Type B (TRICIA) Influenza A & B Note 06/13/22 04:25 MCV MCH MCHC RDW Plt Count MPV Immature Gran % (Auto) Neut % (Auto) Lymph % (Auto) Knox % (Auto) Eos % (Auto) Baso % (Auto) Lymph # (Auto) Knox # (Auto) Eos # (Auto) Baso # (Auto) Abs Immat Gran (auto) Absolute Neuts (auto) Absolute Nucleated RBC Nucleated RBC % (auto) Anion Gap 13 Estim Creat Clear Calc 46.2 Estimated GFR > 60 Random Glucose 107 Lactic Acid Calcium 8.3 L D Magnesium Total Bilirubin Direct Bilirubin AST ALT Alkaline Phosphatase C-Reactive Protein Total Protein Albumin Lipase Vitamin B12 Folate Urine Color Urine Appearance Urine pH Ur Specific [place] Urine Protein Urine Glucose (UA) Urine Ketones Urine Blood Urine Nitrite Ur Leukocyte Esterase C. difficile Tox B Gene C. difficile Toxin A&B C. difficile Interpret COVID-19 (NAT) COVID-19 Clin Com Influenza Type A (TRICIA) Influenza Type B (TRICIA) Influenza A & B Note <TYSON Mera - Last Filed: 06/13/22 12:30> Assessment and Plan (1) Clostridium difficile infection: Status: Acute <TYSON Mera - Last Filed: 06/13/22 12:30> (2) SBO (small bowel obstruction): Status: Acute <TYSON Mera - Last Filed: 06/13/22 12:30> (3) Intussusception: Status: Acute <TYSON Mera - Last Filed: 06/13/22 12:30> Assessment and Plan: Pt is a 72-year-old female with pertinent history of HTN, SEVERIANO, MMD, and Giuliano's esphagus who presented to the ED for evaluation of non-bloody diarrhea x4 days. Tested positive for C-Diff and CT positive for SBO and intussusception. #. SBO -- CT shows evidence for early SBO with transition point in the left abdomen in small bowel intussusception left abdomen. -- NPO -- morphine for pain control -- surgery consult -- hold on NGT for now #. Non severe C diff, initial episode: -- admitted with contact precautions -- fidaxomicin p.o. -- Infectious Disease consult -- resuscitated with IV crystalloids in the ER #. question of pelvic mass -- CT showed thick-walled colon within the right pelvis within the sigmoid colon which warrants lower GI assessment to exclude a mass -- f/u with GI outpatient, Dr. Crawford #. Generalized weakness in the setting of above #. Essential hypertension -- hold?p.o. antihypertensives, restart as appropriate #. Mood disorder -- continue home p.o. medications #.?Chronic macrocytic anemia -- B12 and folate WNL #. Hypomagnesemia due to GI losses: Repleted DVT prophylaxis:? Lovenox 30 mg daily NPO Full code <TYSON Mera - Last Filed: 06/13/22 12:30> Time Spent With Patient Time: Total time managing care of this patient today ____ minutes. <TYSON Mera - Last Filed: 06/13/22 12:30> Quality Stroke Does the patient have a stroke diagnosis?: No <TYSON Mera Last Filed: 06/13/22 12:30> VTE Prior VTE?: No <TYSON Mera Last Filed: 06/13/22 12:30> VTE Risk Level:: Medical - moderate - high <TYSON Mera Last Filed: 06/13/22 12:30> VTE Device Contraindication: Treatment Not Indicated <TYSON Mera Last Filed: 06/13/22 12:30> VTE Drug Contraindication: N/A - Med Ordered <TYSON Mera - Last Filed: 06/13/22 12:30>
--- NOTE | 2022-06-13 10:15 | PC.NURSE ---
Pt AxOx3,Pt is NPO notified by TYSON Elias. Pt received morning meds with no complaints. Pt has three or more episode of diarrhea. Pt is in [facility] for C-Def and on isolation precaution. Pt now change to clear diet. Pt is continue to be monitored.
--- NOTE | 2022-06-13 10:38 | PM.CNGS ---
History of Present Illness Consult details Consult date: 06/13/22 Requesting physician: Darian Oswald Narrative: 72-year-old female patient with history of hypertension, and anxiety disorder now presenting to the emergency department with perfuse diarrhea found to have C diff colitis she has a long history of irritable bowel syndrome and was treated by Dr. Crawford. She is due to see him Monday in the office. Workup in the emergency department with CT abdomen and pelvis revealed an area of small-bowel on small-bowel intussusception in the left upper quadrant. Surgical consultation was requested for further management. She denies nausea or vomiting but has had epigastric abdominal pain. She has a history of Oliveira's esophagitis and by CT is also noted to have a large sliding hiatal hernia. She denies a prior history of bowel surgery. She was treated with Augmentin for sinusitis prior to the onset of diet. Review of Systems Review of Systems: Yes all other systems are reviewed and are negative Constitutional: Constitutional: Denies chills, Denies fever(s), Denies headache(s), Denies poor appetite and Denies weakness ENT: Denies headache(s) Cardiovascular: Cardiovascular: Denies chest pain, Denies irregular heart rhythm, Denies palpitations and Denies dyspnea Respiratory: Respiratory: Denies cough, Denies excessive phlegm production and Denies dyspnea Gastrointestinal: Gastrointestinal: Denies abdominal pain, Denies bloating, Denies change in bowel habits, Denies constipation, Denies heartburn, Reports diarrhea, Denies nausea and Denies vomiting Genitourinary: Genitourinary: Denies urinary frequency Musculoskeletal: Musculoskeletal: Denies back pain, Denies muscle weakness and Denies numbness Integumentary/Breasts: Skin/Breast: Denies changing lesions and Denies unusual bruising Neurologic: Denies headache(s), Denies numbness, Denies paresthesias and Denies weakness Psychiatric: Psychiatric: Denies anxiety and Denies depression Endocrine: Endocrine: Denies palpitations Hematologic/Lymphatic: Hematologic/Lymphatic: Denies lymphadenopathy PMFSH Past Medical History Medical History Anxiety Chronic pain syndrome Hypertension Postlaminectomy syndrome Severe major depression Thrombosed hemorrhoids Family History Family History Father Hypertension Heart disease Mother History of lumpectomy Surgical History Surgical History History of bunionectomy History of D&C History of foot surgery History of hammer toe correction History of hand surgery Social History Social History Alcohol intake: current Alcohol intake frequency: 0-2 drinks per day Alcohol type: wine Smoked in Last 30 Days: Yes Use of substances other than those prescribed or required for medical reasons: No Advance Directives: No Advance Directives Information Provided: No Meds Allergies Allergy/AdvReac Type Severity Reaction Status Date / Time Sulfa (Sulfonamide Allergy Intermediate ITCHING/DARSHAN Unverified 06/02/21 10:57 Antibiotics) H [SULFA (SULFONAMIDE ANTIBIOTICS)] oxycodone [Percocet] Allergy Unknown Unknown Verified 06/02/21 10:57 sulfadiazine Allergy Unknown Unknown Verified 06/02/21 10:57 tree nut [TREE NUT] AdvReac Intermediate GI UPSET Unverified 06/02/21 10:57 acetaminophen [From PERCOCET] AdvReac Unknown NAUSEA Unverified 06/02/21 10:57 Flonase Allergy Unknown Unknown Uncoded 06/02/21 10:57 ZyrTEC Allergy Unknown Unknown Uncoded 06/02/21 10:57 From DEMEROL AdvReac Unknown NAUSEA Uncoded 06/02/21 10:57 From PERCOCET AdvReac Unknown NAUSEA Uncoded 06/02/21 10:57 Active Medications: Current Medications Acetaminophen (Acetaminophen 325 Mg Tablet) 650 mg PO Q6H PRN PRN Reason: Pain, Mild (Pain Scale 1-3) Last Admin: 06/12/22 22:22 Dose: 650 mg Duloxetine HCl (Duloxetine Hcl 30 Mg Capsule.Dr) 30 mg PO BID POOL Enoxaparin Sodium (Enoxaparin Sodium 30 Mg/0.3 Ml Syringe) 30 mg SUBCUT Q24H POOL Last Admin: 06/12/22 22:22 Dose: 30 mg Fidaxomicin (Fidaxomicin 200 Mg Tablet) 200 mg PO Q12H POOL Last Admin: 06/12/22 20:17 Dose: 200 mg Lorazepam (Lorazepam 1 Mg Tablet) 1 mg PO BID POOL Melatonin (Melatonin 3 Mg Tablet) 6 mg PO BEDTIME PRN PRN Reason: Insomnia Morphine Sulfate (Morphine Sulfate 2 Mg/Ml Cartridge) 2 mg IVPUSH Q6H PRN; Protocol PRN Reason: Pain, moderate-severe Omeprazole (Omeprazole 20 Mg Capsule.Dr) 20 mg PO BID [facility] Ondansetron HCl (Ondansetron Hcl 4 Mg/2 Ml Vial) 4 mg IVPUSH Q8H PRN PRN Reason: Nausea and Vomiting Sertraline HCl (Sertraline Hcl 50 Mg Tablet) 50 mg PO BID [facility] Sodium Chloride (0.9 % Sodium Chloride Flush 3 Ml Syringe) 3 ml IVFLUSH QSHIFT [facility] Last Admin: 06/12/22 23:23 Dose: Not Given Home Medications Medication Instructions Recorded Confirmed Last Taken Type ibuprofen 800 mg tablet 800 mg PO BID 05/18/20 06/12/22 06/12/22 History lisinopril 20 mg tablet 20 mg PO DAILY 05/18/20 06/12/22 06/12/22 History lorazepam 1 mg tablet 1 mg PO BID 05/18/20 06/12/22 06/12/22 History pantoprazole 40 mg tablet,delayed 40 mg PO BID 05/18/20 06/12/22 06/12/22 History release amlodipine 10 mg tablet 1 tab PO DAILY 06/12/22 06/12/22 06/12/22 History duloxetine 30 mg capsule,delayed 1 cap PO BID 06/12/22 06/12/22 06/12/22 History release sertraline 50 mg tablet 1 tab PO BID 06/12/22 06/12/22 06/12/22 History Physical Exam Vital Signs: Vital Signs: Last Vital Signs Temp 98.4 F 06/12/22 20:00 Pulse 79 06/12/22 20:00 Resp 16 06/12/22 20:00 BP 154/62 H 06/12/22 20:00 Pulse Ox 97 06/12/22 20:00 O2 Del Method 06/12/22 20:00 BMI result Body Mass Index 18.4 Const: General: cooperative and no acute distress Nutritional Appearance: well nourished Orientation/consciousness: patient oriented x3 Limitations: no limitations HEENT: Head: Yes normocephalic and Yes atraumatic Ears: hearing grossly normal bilaterally Resp: Effort & Inspection: normal respiratory effort, no audible wheezes, no cough and no respiratory distress Cardio: Jugular venous distension: no JVD GI: Inspection: Yes normal to inspection Palpation (GI): Soft to palpation, nontender, no guarding and not rigid Percussion: Yes normal to percussion Auscultation: Hyperactive bowel sounds present Rectal Exam - Female: deferred Skin: Other: Warm, dry, no rash Neuro: General: patient oriented x3 Extrem: General: Yes no clubbing, cyanosis or edema Results Labs Result diagrams: 06/13/22 04:25 06/13/22 04:25 Labs: Abnormal lab results 06/12/22 06/12/22 06/12/22 Range/Units 16:15 16:15 17:46 WBC 15.0 H (4.8-10.8) X10*3/uL RBC 3.35 L (4.20-5.50) X10*6/uL Hgb 11.7 L (12.0-16.0) g/dl Hct 34.3 L (37.0-47.0) % MCV 102.4 H (80.0-98.0) fL MCH 34.9 H (27.0-33.0) pg RDW 17.2 H (11.0-16.0) % Immature Gran % (Auto) 0.8 H (0.0-0.4) % Neut % (Auto) 87.8 H (45-73) % Lymph % (Auto) 4.4 L (20-40) % Lymph # (Auto) 0.7 L (1.2-4.9) X10*3/uL Abs Immat Gran (auto) 0.12 H (0.00-0.03) X10*3/uL Absolute Neuts (auto) 13.2 H (2.0-8.3) x10*3/uL Carbon Dioxide 19 L (22-29) mmol/L BUN 23 H (9-16) mg/dL Calcium (8.4-10.2) mg/dL Magnesium 1.5 L (1.6-2.6) mg/dL Total Bilirubin 1.7 H (0.0-1.0) mg/dL C-Reactive Protein 10.11 H (< or = 0.50) mg/dL Ur Specific [place] (1.005-1.025) C. difficile Tox B Gene POSITIVE A* (Negative) C. difficile Toxin A&B Positive A* (Negative) 06/12/22 06/13/22 06/13/22 Range/Units 19:30 04:25 04:25 WBC 14.2 H (4.8-10.8) X10*3/uL RBC 3.30 L (4.20-5.50) X10*6/uL Hgb 10.5 L (12.0-16.0) g/dl Hct 31.9 L (37.0-47.0) % MCV (80.0-98.0) fL MCH (27.0-33.0) pg RDW (11.0-16.0) % Immature Gran % (Auto) 0.8 H (0.0-0.4) % Neut % (Auto) 86.2 H (45-73) % Lymph % (Auto) 5.6 L (20-40) % Lymph # (Auto) 0.8 L (1.2-4.9) X10*3/uL Abs Immat Gran (auto) 0.11 H (0.00-0.03) X10*3/uL Absolute Neuts (auto) 12.3 H (2.0-8.3) x10*3/uL Carbon Dioxide 20 L (22-29) mmol/L BUN 21 H (9-16) mg/dL Calcium 8.3 L D (8.4-10.2) mg/dL Magnesium (1.6-2.6) mg/dL Total Bilirubin (0.0-1.0) mg/dL C-Reactive Protein (< or = 0.50) mg/dL Ur Specific [place] >= 1.030 H (1.005-1.025) C. difficile Tox B Gene (Negative) C. difficile Toxin A&B (Negative) Short CBC 06/12/22 06/13/22 Range/Units 16:15 04:25 WBC 15.0 H 14.2 H (4.8-10.8) X10*3/uL Hgb 11.7 L 10.5 L (12.0-16.0) g/dl Hct 34.3 L 31.9 L (37.0-47.0) % Plt Count 233 201 (160-400) X10*3/uL BMP 06/12/22 06/13/22 16:15 04:25 Sodium 136 137 Potassium 4.4 3.7 Chloride 103 108 Carbon Dioxide 19 L 20 L BUN 23 H 21 H Creatinine 1.38 0.86 Calcium 9.1 8.3 L D Liver Function 06/12/22 Range/Units 16:15 Total Bilirubin 1.7 H (0.0-1.0) mg/dL Direct Bilirubin 0.5 (0.0-0.5) mg/dL AST 26 (5-31) U/L ALT 13 (0-31) U/L Alkaline Phosphatase 76 (39-117) U/L Albumin 4.1 (3.5-5.0) g/dL Urine 06/12/22 Range/Units 19:30 Urine Color Yellow Urine Appearance Clear Urine pH 6.0 (5.0-9.0) Ur Specific [place] >= 1.030 H (1.005-1.025) Urine Protein Negative (Neg-Trace) mg/dL Urine Glucose (UA) Negative (Negative) mg/dL All other labs normal. Assessment and Plan (1) Intussusception: Status: Acute Plan 72-year-old female patient with C diff colitis after treatment for sinusitis with Augmentin. CT incidentally noted intussusception of the small bowel on small-bowel in the left upper quadrant. Patient has no obstructive symptoms and no upper abdominal pain. No surgical intervention is recommended at this time although repeat CT in 2 days is recommended. If intussusception is still present may need pill endoscopy to evaluate for small-bowel tumor. Will follow patient during this hospitalization. Time Spent With Patient Time: Total time managing care of this patient today ____ minutes. Procedures Date of Service Date of Service: 06/13/22
[2022-06-13] MEDS: Sertraline HCL 50 MG TABLET PO ×2 (10:48→20:36)
[2022-06-13] MEDS: DULoxetine HCl 30 MG CAPSULE.DR PO ×2 (10:48→20:36)
[2022-06-13] MEDS: LORazepam 1 MG TABLET PO ×2 (10:48→20:36)
[2022-06-13] MEDS: Omeprazole 20 MG CAPSULE.DR PO ×2 (10:49→20:36)
[2022-06-13] MEDS: 0.9 % Sodium Chloride Flush 3 ML SYRINGE IVFLUSH ×3 (10:49→20:36)
[2022-06-13] MEDS: Morphine Sulfate 2 MG/ML CARTRIDGE IVPUSH (11:07)
[2022-06-13] MEDS: Fidaxomicin 200 MG TABLET PO ×2 (11:28→22:04)
[2022-06-13] MEDS: metroNIDAZOLE/NS 500 MG/100 ML PIGGYBACK 100 MG IV ×2 (13:37→20:38)
--- NOTE | 2022-06-13 15:43 | W.PM.IDCN ---
History of Present Illness Data of Consult Service Date: 06/13/22 Requesting physician: Jada Calderon Primary Care Provider: Kevyn Mckeon MD [facility] Reason for consult: diarrhea She presents with diarrhea with fecal incontinence for last two days worsening. She has positive Cdiff. She has not had Cdiff before. She was on Augmentin for a sinus infection last week. CT with SBO ?intussaception Review of Systems Review of Systems: Yes all other systems are reviewed and are negative PMFSH Past Medical History Medical History Anxiety Chronic pain syndrome Hypertension Postlaminectomy syndrome Severe major depression Thrombosed hemorrhoids Family History Family History Father Hypertension Heart disease Mother History of lumpectomy Family history: reviewed and not pertinent Surgical History Surgical History History of bunionectomy History of D&C History of foot surgery History of hammer toe correction History of hand surgery Social History Social History Alcohol intake: current Alcohol intake frequency: 0-2 drinks per day Alcohol type: wine Smoked in Last 30 Days: Yes Use of substances other than those prescribed or required for medical reasons: No Advance Directives: No Advance Directives Information Provided: No Meds Allergies Allergy/AdvReac Type Severity Reaction Status Date / Time Sulfa (Sulfonamide Allergy Intermediate ITCHING/DARSHAN Unverified 06/02/21 10:57 Antibiotics) H [SULFA (SULFONAMIDE ANTIBIOTICS)] oxycodone [Percocet] Allergy Unknown Unknown Verified 06/02/21 10:57 sulfadiazine Allergy Unknown Unknown Verified 06/02/21 10:57 tree nut [TREE NUT] AdvReac Intermediate GI UPSET Unverified 06/02/21 10:57 acetaminophen [From PERCOCET] AdvReac Unknown NAUSEA Unverified 06/02/21 10:57 Flonase Allergy Unknown Unknown Uncoded 06/02/21 10:57 ZyrTEC Allergy Unknown Unknown Uncoded 06/02/21 10:57 From DEMEROL AdvReac Unknown NAUSEA Uncoded 06/02/21 10:57 From PERCOCET AdvReac Unknown NAUSEA Uncoded 06/02/21 10:57 Active Medications: Current Medications Acetaminophen (Acetaminophen 325 Mg Tablet) 650 mg PO Q6H PRN PRN Reason: Pain, Mild (Pain Scale 1-3) Last Admin: 06/12/22 22:22 Dose: 650 mg Duloxetine HCl (Duloxetine Hcl 30 Mg Capsule.) 30 mg PO BID [facility] Last Admin: 06/13/22 10:48 Dose: 30 mg Enoxaparin Sodium (Enoxaparin Sodium 30 Mg/0.3 Ml Syringe) 30 mg SUBCUT Q24H [facility] Last Admin: 06/12/22 22:22 Dose: 30 mg Fidaxomicin (Fidaxomicin 200 Mg Tablet) 200 mg PO Q12H [facility] Metronidazole (Flagyl) 500 mg in 100 mls @ 100 mls/hr IV Q8H [facility] Last Admin: 06/13/22 13:37 Dose: 100 mls/hr Lorazepam (Lorazepam 1 Mg Tablet) 1 mg PO BID [facility] Last Admin: 06/13/22 10:48 Dose: 1 mg Melatonin (Melatonin 3 Mg Tablet) 6 mg PO BEDTIME PRN PRN Reason: Insomnia Morphine Sulfate (Morphine Sulfate 2 Mg/Ml Cartridge) 2 mg IVPUSH Q6H PRN; Protocol PRN Reason: Pain, moderate-severe Last Admin: 06/13/22 11:07 Dose: 2 mg Omeprazole (Omeprazole 20 Mg Capsule.) 20 mg PO BID [facility] Last Admin: 06/13/22 10:49 Dose: 20 mg Ondansetron HCl (Ondansetron Hcl 4 Mg/2 Ml Vial) 4 mg IVPUSH Q8H PRN PRN Reason: Nausea and Vomiting Sertraline HCl (Sertraline Hcl 50 Mg Tablet) 50 mg PO BID [facility] Last Admin: 06/13/22 10:48 Dose: 50 mg Sodium Chloride (0.9 % Sodium Chloride Flush 3 Ml Syringe) [facility] Last Admin: 06/13/22 10:49 Dose: 3 ml Home Medications Medication Instructions Recorded Confirmed Last Taken Type ibuprofen 800 mg tablet 800 mg PO BID 05/18/20 06/12/22 06/12/22 History lisinopril 20 mg tablet 20 mg PO DAILY 05/18/20 06/12/22 06/12/22 History lorazepam 1 mg tablet 1 mg PO BID 05/18/20 06/12/22 06/12/22 History pantoprazole 40 mg tablet,delayed 40 mg PO BID 05/18/20 06/12/22 06/12/22 History release amlodipine 10 mg tablet 1 tab PO DAILY 06/12/22 06/12/22 06/12/22 History duloxetine 30 mg capsule,delayed 1 cap PO BID 06/12/22 06/12/22 06/12/22 History release sertraline 50 mg tablet 1 tab PO BID 06/12/22 06/12/22 06/12/22 History Physical Exam Vital Signs: Vital Signs: Last Vital Signs Temp 98.4 F 06/12/22 20:00 Pulse 79 06/12/22 20:00 Resp 16 06/12/22 20:00 BP 154/62 H 06/12/22 20:00 Pulse Ox 97 06/12/22 20:00 O2 Del Method 06/12/22 20:00 BMI result Body Mass Index 18.4 Const: General: cooperative HEENT: Head: Yes normal to inspection Face and sinus: Yes normal facial exam Mouth: Normal oral and palatal mucosa present Teeth and gingiva: dentition normal Eyes: General: appearance normal, both eyes and all related structures Pupils: Equal, round and reactive pupils present Resp: Effort & Inspection: normal respiratory effort Cardio: Rate: regular rate Rhythm: regular rhythm GI: Palpation (GI): Soft to palpation and nontender : General: Yes no CVA tenderness Back/Spine/Pelvis: Back: no CVA tenderness Skin: General skin exam: no rashes or lesions noted Neuro: General: moves all extremities Cranial nerves: Yes Equal, round and reactive pupils present Extrem: General: Yes normal to inspection Psych: Appearance: grossly normal Results Labs CBC & Chem 7: 06/13/22 04:25 06/13/22 04:25 Labs: Short CBC 06/12/22 06/13/22 Range/Units 16:15 04:25 WBC 15.0 H 14.2 H (4.8-10.8) X10*3/uL Hgb 11.7 L 10.5 L (12.0-16.0) g/dl Hct 34.3 L 31.9 L (37.0-47.0) % Plt Count 233 201 (160-400) X10*3/uL BMP 12/11/22 12/12/22 16:15 04:25 Sodium 136 137 Potassium 4.4 3.7 Chloride 103 108 Carbon Dioxide 19 L 20 L BUN 23 H 21 H Creatinine 1.38 0.86 Calcium 9.1 8.3 L D Liver Function 06/12/22 Range/Units 16:15 Total Bilirubin 1.7 H (0.0-1.0) mg/dL Direct Bilirubin 0.5 (0.0-0.5) mg/dL AST 26 (5-31) U/L ALT 13 (0-31) U/L Alkaline Phosphatase 76 (39-117) U/L Albumin 4.1 (3.5-5.0) g/dL Urine 06/12/22 Range/Units 19:30 Urine Color Yellow Urine Appearance Clear Urine pH 6.0 (5.0-9.0) Ur Specific [place] >= 1.030 H (1.005-1.025) Urine Protein Negative (Neg-Trace) mg/dL Urine Glucose (UA) Negative (Negative) mg/dL Assessment and Plan (1) Intussusception: Status: Acute (2) SBO (small bowel obstruction): Status: Acute (3) Clostridium difficile infection: Status: Acute Cdiff is probably related to recent antibiotics She has never had before She has mild to moderate disease Plan Since not taking po well add IV Flagyl Po fidaxomicin for ten days should help and reduce rate of recurrence. If not improving give po Vancomycin 125 mg qid. Time Spent With Patient Time: Total time managing care of this patient today ____ minutes.
[2022-06-13 18:45] VITALS: BMI 18.4
[2022-06-13 18:48] VITALS: BP 132/63; PULSE 94; RESP 19; TEMP 36.5; O2SAT 99
[2022-06-13] MEDS: Enoxaparin Sodium 30 MG/0.3 ML SYRINGE SUBCUT (22:03)
--- NOTE | 2022-06-14 | ECG_ITS ---
Test Reason : cp Blood Pressure : / mmHG Vent. Rate : 090 BPM Atrial Rate : 000 BPM P-R Int : 000 ms QRS Dur : 082 ms QT Int : 396 ms P-R-T Axes : 000 003 081 degrees QTc Int : 484 ms Artifact in tracing Sinus rhythm Premature atrial complexes Nonspecific T wave abnormality Abnormal ECG When compared with ECG of 12-JUN-2022 19:25, lateral ST changes seem improved. Referred By: Jada Calderon Electronically Signed By:CUCO RUSH
[2022-06-14 03:20] VITALS: BP 108/56; PULSE 86; RESP 16; TEMP 36.6; O2SAT 97
[2022-06-14] MEDS: Morphine Sulfate 2 MG/ML CARTRIDGE IVPUSH ×3 (03:39→22:39)
[2022-06-14] MEDS: metroNIDAZOLE/NS 500 MG/100 ML PIGGYBACK 100 MG IV ×3 (05:19→21:25)
[2022-06-14] MEDS: Omeprazole 20 MG CAPSULE.DR PO ×2 (07:54→21:23)
[2022-06-14] MEDS: LORazepam 1 MG TABLET PO ×2 (07:54→21:23)
[2022-06-14] MEDS: Sertraline HCL 50 MG TABLET PO ×2 (07:54→21:23)
[2022-06-14] MEDS: DULoxetine HCl 30 MG CAPSULE.DR PO ×2 (07:54→21:23)
[2022-06-14 08:00] VITALS: BP 132/63; PULSE 83; RESP 18; TEMP 36.1; O2SAT 98
--- NOTE | 2022-06-14 08:31 | P.PNIM_ITS ---
Subjective Subjective Date of Service: 06/14/22 Interval History: Pt seen for f/u for diarrhea x4 days, c-diff positive, CT shows possible SBO and intussusception Interval history: Patient reports no acute concerns overnight. Reports continued nausea but no vomiting, and nonbloody diarrhea every 3-4 hours, which is improved since admission. Abdominal pain is sharp and stabbing, comes and goes, and located diffusely across her mid section. Still rates it a 7-8/10. General surgery did not recommend any surgical intervention at this time since patient had no obstructive symptoms and no upper abdominal pain. Recommend repeating CT with contrast tomorrow. Patient's potassium came back low at 3.0 likely due to GI losses. Will supplement with p.o. potassium. The patient also complained of an irritated throat and requested a lozenge. Review of Systems Nonbloody diarrhea every 3-4 hours Diffuse mid abdominal pain Sore throat No chest pain/pressure Denies shortness of breath Physical Exam Vital Signs: Vital Signs: Last Vital Signs Temp 97.0 F 06/14/22 08:00 Pulse 83 06/14/22 08:00 Resp 18 06/14/22 08:00 BP 132/63 06/14/22 08:00 Pulse Ox 98 06/14/22 08:00 O2 Del Method 06/14/22 08:00 BMI result Body Mass Index 18.4 General: AOx3, no acute distress Resp: CTA bilaterally CVS: S1, S2, irregular rhythm, possibly PACs. No murmurs, rubs GI: rather benigh. +BS, mild diffuse tenderness, no distention Skin: No rash Neuro: Motor grossly intact Psych: Appropriate affect Objective Data Active Medications Acetaminophen (Acetaminophen 325 Mg Tablet) 650 mg PO Q6H PRN PRN Reason: Pain, Mild (Pain Scale 1-3) Last Admin: 06/12/22 22:22 Dose: 650 mg Documented By: SERSlick Duloxetine HCl (Duloxetine Hcl 30 Mg Capsule.Dr) 30 mg PO BID [facility] Last Admin: 06/14/22 07:54 Dose: 30 mg Documented By: COBY-SOFFA Enoxaparin Sodium (Enoxaparin Sodium 30 Mg/0.3 Ml Syringe) 30 mg SUBCUT Q24H [facility] Last Admin: 06/13/22 22:03 Dose: 30 mg Documented By: NASIMA Fidaxomicin (Fidaxomicin 200 Mg Tablet) 200 mg PO Q12H [facility] Last Admin: 06/13/22 22:04 Dose: 200 mg Documented By: NASIMA Metronidazole (Flagyl) 500 mg in 100 mls @ 100 mls/hr IV Q8H [facility] Last Infusion: 06/14/22 06:20 Dose: 0 mls/hr Documented By: FELICITAS Lorazepam (Lorazepam 1 Mg Tablet) 1 mg PO BID [facility] Last Admin: 06/14/22 07:54 Dose: 1 mg Documented By: PATRICK Melatonin (Melatonin 3 Mg Tablet) 6 mg PO BEDTIME PRN PRN Reason: Insomnia Morphine Sulfate (Morphine Sulfate 2 Mg/Ml Cartridge) 2 mg IVPUSH Q6H PRN; Protocol PRN Reason: Pain, moderate-severe Last Admin: 06/14/22 03:39 Dose: 2 mg Documented By: FELICITAS Omeprazole (Omeprazole 20 Mg Capsule.Dr) 20 mg PO BID [facility] Last Admin: 06/14/22 07:54 Dose: 20 mg Documented By: PATRICK Ondansetron HCl (Ondansetron Hcl 4 Mg/2 Ml Vial) 4 mg IVPUSH Q8H PRN PRN Reason: Nausea and Vomiting Sertraline HCl (Sertraline Hcl 50 Mg Tablet) 50 mg PO BID [facility] Last Admin: 06/14/22 07:54 Dose: 50 mg Documented By: PATRICK Sodium Chloride (0.9 % Sodium Chloride Flush 3 Ml Syringe) 3 ml IVFLUSH QSHIFT [facility] Last Admin: 06/14/22 07:03 Dose: Not Given Documented By: PATRICK Non-Admin Reason: Previously Administered Labs CBC & Chem 7: 06/14/22 08:45 06/14/22 08:45 Labs: Laboratory Results - last 24 hr 06/12/22 17:46 Stl C. cayetanensis PCR TNP Stool Rotavirus A PCR TNP Stl Adenov F 40/41 PCR TNP Stool Astrovirus (PCR) TNP Stool Campylobacter PCR TNP Stool Cryptosporidium PCR TNP Stl Sh Tox Pr E STEC PCR TNP Stool E coli O157 PCR TNP Stl Enterotoxigenic E PCR TNP Stool EPEC (PCR) TNP Stool EAEC (PCR) TNP Stl E. histolytica PCR TNP Stool Giardia Lamblia PCR TNP Stl P. shigelloides PCR TNP Stool Salmonella PCR TNP Stool Sapovirus (PCR) TNP Stl Shigella/EIEC PCR TNP St Y.enterocolitica PCR TNP Stool Vibrio (PCR) TNP Stl Vibrio cholerae PCR TNP Stl Norovirus GI/GII PCR TNP Microbiology Microbiology Results: Microbiology 06/12/22 20:07 Blood Culture - Preliminary Blood - Venous No growth after 24 hours. 06/12/22 19:53 Blood Culture - Preliminary Blood - Venous No growth after 24 hours. Assessment and Plan (1) Clostridium difficile infection: Status: Acute (2) Intussusception: Status: Acute Plan Pt is a 72-year-old female with pertinent history of HTN, SEVERIANO, MMD, and Giuliano's esphagus who presented to the ED for evaluation of non-bloody diarrhea x4 days. Tested positive for C-Diff and CT positive for possible SBO and intussusception. #. question of SBO -- CT shows evidence for early SBO with transition point in the left abdomen in small bowel intussusception left abdomen. -- general surgery consulted and found no need for surgical intervention at this time. They questioned if pt has an SBO since patient had no obstructive symptoms and no upper abdominal pain -- repeat CT with contrast tomorrow, per General surgery -- pt initially NPO, but now on clears -- morphine for pain control -- NGT not indicated at this time #. Non severe C diff, initial episode: -- admitted with contact precautions -- resuscitated with IV crystalloids in the ER -- continues to have diarrhea, improved, now every 2-3 hrs -- fidaxomicin p.o. day 08/12 -- Infectious Disease consult -- IV Flagyl since not tolerating PO well, per ID #. question of pelvic mass -- CT showed thick-walled colon within the right pelvis within the sigmoid colon which warrants lower GI assessment to exclude a mass -- f/u with GI outpatient, Dr. Crawford #. Hypomagnesemia due to GI losses: Repleted -- follow labs and replenish as needed # hypokalemia -- likely secondary to diarrhea -- supplement with PO potassium, follow labs daily # abnormal EKG -- EKG showed sinus rhythm with premature atrial complexes and nonspecific ST and T-wave abnormalities -- repeat EKG #. Essential hypertension -- hold?p.o. antihypertensives, restart as appropriate #. Mood disorder -- continue home p.o. medications #.?Chronic macrocytic anemia -- B12 and folate WNL DVT prophylaxis:? Lovenox 30 mg daily Clears diet Full code Time Spent With Patient Time: Total time managing care of this patient today ____ minutes. Quality Stroke Does the patient have a stroke diagnosis?: No VTE Prior VTE?: No VTE Risk Level:: Medical - moderate - high VTE Device Contraindication: Treatment Not Indicated VTE Drug Contraindication: N/A - Med Ordered
--- NOTE | 2022-06-14 08:44 | P.PNGS_ITS ---
Subjective Subjective Date of Service: 06/14/22 Interval history: Continues with diarrhea, intermittent stabbing abd pains. Currently feels ok and a little improved. Has some nausea but no vomiting, does not feel bloated. Asking to see Dr. Crawford while she is here- has f/u appt for Barretts and worsening reflux symptoms tomorrow. Physical Exam Vital Signs: Vital Signs: Last Vital Signs Temp 97.0 F 06/14/22 08:00 Pulse 83 06/14/22 08:00 Resp 18 06/14/22 08:00 BP 132/63 06/14/22 08:00 Pulse Ox 98 06/14/22 08:00 O2 Del Method 06/14/22 08:00 BMI result Body Mass Index 18.4 Const: General: comfortable, well developed, alert and anxious Orientation/consciousness: patient oriented x3 Resp: Effort & Inspection: normal respiratory effort GI: Inspection: Yes distended (softly, minimal lower abd) Palpation (GI): Soft to palpation, nontender, no guarding and not rigid Percussion: Yes normal to percussion Skin: General skin exam: no rashes or lesions noted Neuro: General: patient oriented x3 and moves all extremities Extrem: General: Yes no clubbing, cyanosis or edema Objective Data Active Medications Acetaminophen (Acetaminophen 325 Mg Tablet) 650 mg PO Q6H PRN PRN Reason: Pain, Mild (Pain Scale 1-3) Last Admin: 06/12/22 22:22 Dose: 650 mg Documented By: CIRO Duloxetine HCl (Duloxetine Hcl 30 Mg Capsule.) 30 mg PO BID [facility] Last Admin: 06/14/22 07:54 Dose: 30 mg Documented By: PATRICK Enoxaparin Sodium (Enoxaparin Sodium 30 Mg/0.3 Ml Syringe) 30 mg SUBCUT Q24H [facility] Last Admin: 06/13/22 22:03 Dose: 30 mg Documented By: NASIMA Fidaxomicin (Fidaxomicin 200 Mg Tablet) 200 mg PO Q12H [facility] Last Admin: 06/13/22 22:04 Dose: 200 mg Documented By: NASIMA Metronidazole (Flagyl) 500 mg in 100 mls @ 100 mls/hr IV Q8H [facility] Last Infusion: 06/14/22 06:20 Dose: 0 mls/hr Documented By: FELICITAS Lorazepam (Lorazepam 1 Mg Tablet) 1 mg PO BID [facility] Last Admin: 06/14/22 07:54 Dose: 1 mg Documented By: PATRICK Melatonin (Melatonin 3 Mg Tablet) 6 mg PO BEDTIME PRN PRN Reason: Insomnia Morphine Sulfate (Morphine Sulfate 2 Mg/Ml Cartridge) 2 mg IVPUSH Q6H PRN; Protocol PRN Reason: Pain, moderate-severe Last Admin: 06/14/22 03:39 Dose: 2 mg Documented By: FELICITAS Omeprazole (Omeprazole 20 Mg Capsule.Dr) 20 mg PO BID [facility] Last Admin: 06/14/22 07:54 Dose: 20 mg Documented By: PATRICK Ondansetron HCl (Ondansetron Hcl 4 Mg/2 Ml Vial) 4 mg IVPUSH Q8H PRN PRN Reason: Nausea and Vomiting Sertraline HCl (Sertraline Hcl 50 Mg Tablet) 50 mg PO BID [facility] Last Admin: 06/14/22 07:54 Dose: 50 mg Documented By: PATRICK Sodium Chloride (0.9 % Sodium Chloride Flush 3 Ml Syringe) 3 ml IVFLUSH QSHIFT [facility] Last Admin: 06/14/22 07:03 Dose: Not Given Documented By: PATRICK Non-Admin Reason: Previously Administered Labs CBC & Chem 7: 06/13/22 04:25 06/13/22 04:25 Labs: Laboratory Results - last 24 hr 06/12/22 17:46 Stl C. cayetanensis PCR TNP Stool Rotavirus A PCR TNP Stl Adenov F 40/41 PCR TNP Stool Astrovirus (PCR) TNP Stool Campylobacter PCR TNP Stool Cryptosporidium PCR TNP Stl Sh Tox Pr E STEC PCR TNP Stool E coli O157 PCR TNP Stl Enterotoxigenic E PCR TNP Stool EPEC (PCR) TNP Stool EAEC (PCR) TNP Stl E. histolytica PCR TNP Stool Giardia Lamblia PCR TNP Stl P. shigelloides PCR TNP Stool Salmonella PCR TNP Stool Sapovirus (PCR) TNP Stl Shigella/EIEC PCR TNP St Y.enterocolitica PCR TNP Stool Vibrio (PCR) TNP Stl Vibrio cholerae PCR TNP Stl Norovirus GI/GII PCR TNP Microbiology Microbiology Results: Microbiology 12/11/22 20:07 Blood Culture - Preliminary Blood - Venous No growth after 24 hours. 06/12/22 19:53 Blood Culture - Preliminary Blood - Venous No growth after 24 hours. Procedures Date of Service Date of Service: 06/14/22 Progress Note: A&P Assessment and plan (1) Intussusception: Status: Acute (2) Clostridium difficile infection: Status: Acute Plan 72 year old female admitted with C diff incidentally found to have small bowel intussusception on admission CT scan. She continues without obstructive symptoms but does report intermittent abd pain which may reflect the intussusception resolving and recurring vs pain from colitis however her abd is very benign- soft, nontender. Cont abx, IVF, clear liquids as tolerated. Repeat CT scan tomorrow with contrast. Time Spent With Patient Time: Total time managing care of this patient today ____ minutes. Quality Stroke Does the patient have a stroke diagnosis?: No VTE Prior VTE?: No VTE Risk Level:: Medical - moderate - high VTE Device Contraindication: Treatment Not Indicated VTE Drug Contraindication: N/A - Med Ordered
[2022-06-14 08:58] LABS: Hematocrit 31.2 % (37.0-47.0); Hemoglobin 10.5 g/dl (12.0-16.0); Mean Corpuscular HGB Conc 33.7 g/dl (31.0-35.0); Mean Corpuscular Hemoglobin 33.2 pg (27.0-33.0); Mean Corpuscular Volume 98.7 fL (80.0-98.0); Mean Platelet Volume 10.7 fL (9.4-12.3); Platelet Count 205 X10*3/uL (160-400); Red Blood Count 3.16 X10*6/uL (4.20-5.50); Red Cell Distribution Width 14.9 % (11.0-16.0); White Blood Count 10.9 X10*3/uL (4.8-10.8)
[2022-06-14 09:11] LABS: Anion Gap 12 (12-20); Blood Urea Nitrogen 15 mg/dL (9-16); Calcium 8.1 mg/dL (8.4-10.2); Carbon Dioxide 20 mmol/L (22-29); Chloride 109 mmol/L (96-108); Estimated Glomerular Filt Rate > 60; Glucose Random 96 mg/dL (60-115); Sodium 138 mmol/L (135-145)
[2022-06-14] MEDS: Potassium Chloride ER 20 MEQ TAB.ER.PRT PO (11:29)
[2022-06-14] MEDS: Fidaxomicin 200 MG TABLET PO ×2 (11:29→22:40)
[2022-06-14] MEDS: Throat Lozenge, Medicated LOZENGE 1 LOZENGE MUCOUS MEM (12:01)
[2022-06-14] MEDS: Potassium Chloride Packet 20 MEQ PACKET PO (12:02)
[2022-06-14] MEDS: Magnesium Sulfate/H2O 2 GM/50 ML PIGGYBACK IV (12:02)
[2022-06-14 12:57] LABS: Magnesium 1.4 mg/dL (1.6-2.6)
--- NOTE | 2022-06-14 13:43 | MHC.CM.PN ---
PATIENT LIVES ALONE. SHE HAS HELP FROM A FRIEND, WHO PROVIDES TRANSPORT AND GROCERY SHOPPING TWICE A WEEK. SHE HAS A HCP AND A COPY IS REQUESTED. SHE EXPLAINS THAT HER SON-IN-LAW IS ON HER HCP AND IN AUGUST 2022, HER DAUGHTER AND S.I.L. WILL BE . SHE WILL COMPLETE A NEW ONE THEN. PATIENT IS AWARE THAT IF SHE CHANGES HER MIND, CM CAN ASSIST WITH COMPLETION OF ONE. NO VNA IN THE HOME. PATIENT RELIES ON A WALKER AND WHEELCHAIR. IMM 06/14 EXPLAINED, SIGNED, AND COPY IN CHART
[2022-06-14 15:29] VITALS: BMI 18.4
--- NOTE | 2022-06-14 15:36 | MHC.CLN ---
PT IS UNDER WT FOR HT PT REPORTED UBW 123# HOWEVER WT LOSS OVER PAST YEAR S/P SPINAL SX; PT WITH INCREASED NUTRITION RISK R/T ACUTE C-DIFF INFECTION AND INTUSSUSCEPTION DIET RX: C/L-APPROPRIATE PT AGREED TO TRAIL ENSURE CLEAR TID TO INCREASE KCALS APPEPTITE REPORTED POOR PER PT SUPP TO PROVIDE 720KCALS, 24G PROTEIN PT PREFERS TO FOLLOW LACTOSE FREE DIET R/T INTOLERANCE MONITOR PO INTAKE CLOSELY SEE ALSO FULL CLINICAL NUTRITION ASSESSMENT
[2022-06-14 15:57] VITALS: BP 136/69; PULSE 67; RESP 17; TEMP 37.4; O2SAT 99
[2022-06-14 20:00] VITALS: BP 138/78; PULSE 74; RESP 16; TEMP 36.6; O2SAT 97
[2022-06-14] MEDS: Enoxaparin Sodium 30 MG/0.3 ML SYRINGE SUBCUT (21:23)
[2022-06-14] MEDS: 0.9 % Sodium Chloride Flush 3 ML SYRINGE IVFLUSH (21:31)
[2022-06-14] MEDS: Melatonin 3 MG TABLET 6 MG PO (22:40)
[2022-06-15 03:01] VITALS: BP 118/57; PULSE 74; RESP 16; TEMP 36.7; O2SAT 95
--- NOTE | 2022-06-15 03:16 | CONS_ITS ---
DATE OF SERVICE: 06/14/2022 REFERRING PHYSICIAN: Annie Pierre PA-C REASON FOR CONSULTATION: History of Oliveira esophagus and gastroesophageal reflux disease. HISTORY OF PRESENT ILLNESS: The patient is a pleasant 72-year-old woman known to me from prior evaluation. She has a history of gastroesophageal reflux disease and Oliveira esophagus and was last seen in the office in 2019. Her last upper endoscopy was in 2016 and followup was recommended for 3 to 5 years. Reflux symptoms have been generally under good control on a regimen of pantoprazole 40 mg daily. She has had no dysphagia, hematemesis, or melena. She was admitted to the hospital on June 12 after presenting to the emergency department with complaints of diarrhea. She has been found to have C diff after completing a course of Augmentin for sinusitis and is currently being treated for this. She also has a history of underlying irritable bowel syndrome with abdominal cramping which has been controlled with dicyclomine in the past. As part of her evaluation, she underwent CT scanning, which raised the question of a possible small bowel obstruction due to intussusception, but she has not had small-bowel obstruction symptoms and followup CT scanning is planned for tomorrow. We discussed this today. PAST MEDICAL HISTORY: 1. Oliveira esophagus. 2. Irritable bowel syndrome. 3. Anxiety. 4. Depression. 5. Post-laminectomy syndrome. 6. Hypertension. 7. Hemorrhoids. CURRENT MEDICATIONS: Her current medication list is reviewed in the chart. ALLERGIES: MULTIPLE MEDICATION ALLERGIES ARE REVIEWED. FAMILY HISTORY: This is reviewed with the patient and is noncontributory. SOCIAL HISTORY: There is no current tobacco, alcohol, or substance abuse. REVIEW OF SYSTEMS: SKIN: No pruritus. HEENT: Negative. CARDIOPULMONARY: No shortness of breath or chest pain. GASTROINTESTINAL: As above. GENITOURINARY: Negative. NEUROPSYCHIATRIC: Negative. PHYSICAL EXAMINATION: GENERAL: Shows a pleasant female, lying comfortably in bed. She does appear anxious. VITAL SIGNS: Reviewed in the electronic medical record and are stable. SKIN: Anicteric. HEENT: Shows no scleral icterus. NECK: Without lymphadenopathy or thyromegaly. LUNGS: Clear. HEART: Shows a regular rate and rhythm. S1, S2. No murmur. ABDOMEN: Soft without focal masses or tenderness. Bowel sounds are present. No organomegaly is noted. EXTREMITIES: Without edema. LABORATORY DATA AND IMAGING STUDIES: Reviewed. IMPRESSION: 1. Gastroesophageal reflux disease with history of Oliveira esophagus. 2. Clostridium difficile infection. 3. Irritable bowel syndrome. At this time, she appears stable with respect to her reflux and I agree with treating with her with omeprazole b.i.d. She can go back to her usual pantoprazole dose at home after discharge. We did discuss eventual outpatient endoscopy for followup of her Oliveira esophagus. Currently, she has no worrisome symptoms such as dysphagia, hematemesis, or melena. 4. Her Clostridium difficile is under treatment and if necessary, she could have dicyclomine added to her regimen in case her IBS symptoms act up. Thank you for asking me to see her. I will follow her in the hospital with you. MD BALAJI Lloyd/JOSIE / [phone]
[2022-06-15] MEDS: metroNIDAZOLE/NS 500 MG/100 ML PIGGYBACK 100 MG IV ×3 (05:14→22:40)
[2022-06-15 06:59] LABS: Anion Gap 14 (12-20); Blood Urea Nitrogen 13 mg/dL (9-16); Carbon Dioxide 19 mmol/L (22-29); Chloride 109 mmol/L (96-108); Creatinine Clr Calc Pharmacy 53.8; Estimated Glomerular Filt Rate > 60; Glucose Random 100 mg/dL (60-115); Magnesium 1.5 mg/dL (1.6-2.6); Potassium 3.1 mmol/L (3.3-5.1); Sodium 139 mmol/L (135-145)
[2022-06-15 07:39] LABS: Hematocrit 31.5 % (37.0-47.0); Hemoglobin 10.2 g/dl (12.0-16.0); Mean Corpuscular Hemoglobin 32.6 pg (27.0-33.0); Mean Corpuscular Volume 100.6 fL (80.0-98.0); Mean Platelet Volume 10.4 fL (9.4-12.3); Platelet Count 174 X10*3/uL (160-400); Red Blood Count 3.13 X10*6/uL (4.20-5.50); Red Cell Distribution Width 15.1 % (11.0-16.0)
[2022-06-15 07:40] LABS: Mean Corpuscular HGB Conc 32.4 g/dl (31.0-35.0)
[2022-06-15 07:57] VITALS: BP 136/65; PULSE 68; RESP 18; TEMP 37.1; O2SAT 98
[2022-06-15] MEDS: LORazepam 1 MG TABLET PO ×2 (08:23→22:35)
[2022-06-15] MEDS: DULoxetine HCl 30 MG CAPSULE.DR PO ×2 (08:23→22:38)
[2022-06-15] MEDS: Sertraline HCL 50 MG TABLET PO ×2 (08:23→22:38)
[2022-06-15] MEDS: 0.9 % Sodium Chloride Flush 3 ML SYRINGE IVFLUSH ×2 (08:24→16:08)
[2022-06-15] MEDS: Omeprazole 20 MG CAPSULE.DR PO ×2 (08:24→22:38)
[2022-06-15] MEDS: Morphine Sulfate 2 MG/ML CARTRIDGE IVPUSH ×3 (08:25→22:31)
--- NOTE | 2022-06-15 08:25 | PM.PNGS ---
Subjective Subjective Date of Service: 06/15/22 Interval history: C/o lower abd pain, sharp. Diarrhea improving, amount decreasing. Tolerating clear liquids. Physical Exam Vital Signs: Vital Signs: Last Vital Signs Temp 98.8 F 06/15/22 07:57 Pulse 68 06/15/22 07:57 Resp 18 06/15/22 07:57 BP 136/65 06/15/22 07:57 Pulse Ox 98 06/15/22 07:57 O2 Del Method 06/15/22 07:57 BMI result Body Mass Index 18.4 Const: General: no acute distress and alert Orientation/consciousness: patient oriented x3 Resp: Effort & Inspection: normal respiratory effort GI: Inspection: No distended Palpation (GI): Soft to palpation, Tenderness to palpation present (GI) (mild, lower abd), no guarding and not rigid Percussion: Yes normal to percussion Skin: General skin exam: no rashes or lesions noted Neuro: General: patient oriented x3 Objective Data Active Medications Acetaminophen (Acetaminophen 325 Mg Tablet) 650 mg PO Q6H PRN PRN Reason: Pain, Mild (Pain Scale 1-3) Last Admin: 06/12/22 22:22 Dose: 650 mg Documented By: CIRO Benzocaine (Throat Lozenge, Medicated Lozenge) 1 lozenge MUCOUS MEM Q2H PRN PRN Reason: Sore Throat Last Admin: 06/14/22 12:01 Dose: 1 lozenge Documented By: COBY-KERRIE Duloxetine HCl (Duloxetine Hcl 30 Mg Capsule.Dr) 30 mg PO BID [facility] Last Admin: 06/15/22 08:23 Dose: 30 mg Documented By: NELI Enoxaparin Sodium (Enoxaparin Sodium 30 Mg/0.3 Ml Syringe) 30 mg SUBCUT Q24H [facility] Last Admin: 06/14/22 21:23 Dose: 30 mg Documented By: NASIMA Fidaxomicin (Fidaxomicin 200 Mg Tablet) 200 mg PO Q12H [facility] Last Admin: 06/14/22 22:40 Dose: 200 mg Documented By: NASIMA Metronidazole (Flagyl) 500 mg in 100 mls @ 100 mls/hr IV Q8H [facility] Last Infusion: 06/15/22 06:15 Dose: 0 mls/hr Documented By: NASIMA Magnesium Sulfate (Magnesium Sulfate/H2o) 2 gm in 50 mls @ 25 mls/hr IV ONCE ONE Stop: 06/15/22 10:19 Lorazepam (Lorazepam 1 Mg Tablet) 1 mg PO BID [facility] Last Admin: 06/15/22 08:23 Dose: 1 mg Documented By: NELI Melatonin (Melatonin 3 Mg Tablet) 6 mg PO BEDTIME PRN PRN Reason: Insomnia Last Admin: 06/14/22 22:40 Dose: 6 mg Documented By: NASIMA Morphine Sulfate (Morphine Sulfate 2 Mg/Ml Cartridge) 2 mg IVPUSH Q6H PRN; Protocol PRN Reason: Pain, moderate-severe Last Admin: 06/14/22 22:39 Dose: 2 mg Documented By: NASIMA Omeprazole (Omeprazole 20 Mg Capsule.Dr) 20 mg PO BID [facility] Last Admin: 06/15/22 08:24 Dose: 20 mg Documented By: NELI Ondansetron HCl (Ondansetron Hcl 4 Mg/2 Ml Vial) 4 mg IVPUSH Q8H PRN PRN Reason: Nausea and Vomiting Potassium Chloride (Potassium Chloride Er 20 Meq Tab.Er.Prt) 20 meq PO ONCE ONE Stop: 06/15/22 08:21 Sertraline HCl (Sertraline Hcl 50 Mg Tablet) 50 mg PO BID [facility] Last Admin: 06/15/22 08:23 Dose: 50 mg Documented By: NELI Sodium Chloride (0.9 % Sodium Chloride Flush 3 Ml Syringe) 3 ml IVFLUSH QSHIFT [facility] Last Admin: 06/15/22 08:24 Dose: 3 ml Documented By: NELI Labs CBC & Chem 7: 06/15/22 05:39 06/15/22 05:39 Labs: Laboratory Results - last 24 hr 06/14/22 06/14/22 06/15/22 08:45 08:45 05:39 MCV 98.7 H 100.6 H MCH 33.2 H 32.6 MCHC 33.7 32.4 RDW 14.9 15.1 Plt Count 205 174 MPV 10.7 10.4 Absolute Nucleated RBC 0.000 0.000 Nucleated RBC % (auto) 0.0 0.0 Anion Gap 12 Estim Creat Clear Calc 51.0 Estimated GFR > 60 Random Glucose 96 Calcium 8.1 L Magnesium 1.4 L* 06/15/22 05:39 MCV MCH MCHC RDW Plt Count MPV Absolute Nucleated RBC Nucleated RBC % (auto) Anion Gap 14 Estim Creat Clear Calc 53.8 Estimated GFR > 60 Random Glucose 100 Calcium 8.0 L Magnesium 1.5 L Microbiology Microbiology Results: Microbiology 06/12/22 20:07 Blood Culture - Preliminary Blood - Venous No growth after 48 hours. 06/12/22 19:53 Blood Culture - Preliminary Blood - Venous No growth after 48 hours. Procedures Date of Service Date of Service: 06/15/22 Progress Note: A&P Assessment and plan (1) Intussusception: Status: Acute (2) Clostridium difficile infection: Status: Acute Plan 72 year old female admitted with C diff incidentally found to have small bowel intussusception on admission CT scan. She continues without obstructive symptoms, now with lower abd pain which is likely from C diff infection. Cont abx, IVF, clear liquids. Repeat CT scan today with contrast. Can advance diet as tolerated if normal. Time Spent With Patient Time: Total time managing care of this patient today ____ minutes. Quality Stroke Does the patient have a stroke diagnosis?: No VTE Prior VTE?: No VTE Risk Level:: Medical - moderate - high VTE Device Contraindication: Treatment Not Indicated VTE Drug Contraindication: N/A - Med Ordered
--- NOTE | 2022-06-15 08:27 | P.CDIC_ITS ---
CDI Concurrent Query Documentation Clarification: PHYSICIAN'S DOCUMENTATION REQUEST Date of Query: 06/15/22 0827 Patient Name: Kiesha Perez Admit Date: 06/12/22 Dear Doctor, A review of the medical record indicates additional documentation may be needed. Please review below and update the documentation accordingly. Clinical Indicators: Height: [] 5'5 Weight: [] 50.349 kg BMI: 18.5[] Other Clinical Notes Supporting Significance of the BMI: Risk Factors/Clinical Indicators/Treatments Per Nutrition Assessment 06/14/22: patient is underweight for height patient reported UBW 123 pounds however weight loss over past year s/p spinal sx; patient with increased nutrition risk R/T acute C.Diff infection and intussusception If possible, please provide an associated diagnosis related to the abnormal BMI, such as: For a BMI <= 19: * Underweight * Weight loss * Cachexia * Anorexia * Malnutrition (mild, moderate, severe) protein calorie Or: * BMI is not significant * Other (please specify) * Unable to determine Use of terms such as suspected, likely, concern for, or probable (associated with a specific diagnosis that is being evaluated, monitored, or treated as if it exists) are acceptable and can be coded in the inpatient setting, when documented at the time of discharge. Thank you, Rachel Quinteros [insert CDI's credentials] Extension: [4-digit phone extension] Please use your independent medical judgment in providing your response. THIS QUERY IS PART OF THE PERMANENT MEDICAL RECORD
[2022-06-15] MEDS: Magnesium Sulfate/H2O 2 GM/50 ML PIGGYBACK IV (08:35)
[2022-06-15] MEDS: Potassium Chloride ER 20 MEQ TAB.ER.PRT PO (08:35)
--- NOTE | 2022-06-15 09:38 | MHC.CLN ---
F/U DIET=CLEAR LIQUIDS. ENSURE CLEAR TID PROVIDES ADDITIONAL 720 KCALS, 24 G PROTEIN. PREFERS TO FOLLOW LACTOSE FREE DIET DUE TO INTOLERANCE. TOLERATING CLEAR LIQUIDS. FOLLOW FOR DIET ADVANCEMENT AND PO INTAKE.
--- NOTE | 2022-06-15 10:04 | HO.PM.IMPN ---
Subjective Subjective Date of Service: 06/15/22 <TYSON Mera - Last Filed: 06/15/22 10:22> 06/16/22 <Darian Oswald MD - Last Filed: 06/16/22 10:23> Interval History: Pt seen for f/u for diarrhea x4 days, c-diff positive, CT shows possible SBO and intussusception Interval history: Patient's nausea has subsided, still no vomiting. Still complains of nonbloody diarrhea at about the same rate as when she came in, but notes that the volume is not less than before. Abdominal pain still diffuse but seems better. Patient now complains of right sided pelvic pain insert she can feel a tender ?nodule.? Potassium still low at 3.1 and magnesium at 1.5, continue supplementation of both. Patient will be getting a repeat CT scan later today. <TYSON Mera Last Filed: 06/15/22 10:22> Review of Systems Nonbloody diarrhea Diffuse abdominal pain Painful right pelvic nodule Denies nausea or vomiting No fever chills Denies chest pain or shortness of breath <TYSON Mera - Last Filed: 06/15/22 10:22> Review of Systems: Yes all other systems are reviewed and are negative <TYSON Mera Last Filed: 06/15/22 10:22> Physical Exam Vital Signs: Vital Signs: Last Vital Signs Temp 98.8 F 06/15/22 07:57 Pulse 68 06/15/22 07:57 Resp 18 06/15/22 07:57 BP 136/65 06/15/22 07:57 Pulse Ox 98 06/15/22 07:57 O2 Del Method 06/15/22 07:57 BMI result Body Mass Index 18.4 <TYSON Mera Last Filed: 06/15/22 10:22> General: AOx3, no acute distress Resp: CTA bilaterally CVS: S1, S2, RRR with occasional extra beats GI: Rather benigh. +BS, mild diffuse tenderness, no distention Skin: No rash Neuro: Motor grossly intact : right-sided pelvic tenderness, no nodule appreciated Psych: Appropriate affect <TYSON Mera Last Filed: 06/15/22 10:22> Objective Data Active Medications Acetaminophen (Acetaminophen 325 Mg Tablet) 650 mg PO Q6H PRN PRN Reason: Pain, Mild (Pain Scale 1-3) Last Admin: 06/12/22 22:22 Dose: 650 mg Documented By: CIRO Benzocaine (Throat Lozenge, Medicated Lozenge) 1 lozenge MUCOUS MEM Q2H PRN PRN Reason: Sore Throat Last Admin: 06/14/22 12:01 Dose: 1 lozenge Documented By: COBY-SOFFA Duloxetine HCl (Duloxetine Hcl 30 Mg Capsule) 30 mg PO BID [facility] Last Admin: 06/15/22 08:23 Dose: 30 mg Documented By: NELI Enoxaparin Sodium (Enoxaparin Sodium 30 Mg/0.3 Ml Syringe) 30 mg SUBCUT Q24H [facility] Last Admin: 06/14/22 21:23 Dose: 30 mg Documented By: NASIMA Fidaxomicin (Fidaxomicin 200 Mg Tablet) 200 mg PO Q12H [facility] Last Admin: 06/14/22 22:40 Dose: 200 mg Documented By: NASIMA Metronidazole (Flagyl) 500 mg in 100 mls @ 100 mls/hr IV Q8H [facility] Last Infusion: 06/15/22 06:15 Dose: 0 mls/hr Documented By: NASIMA Magnesium Sulfate (Magnesium Sulfate/H2o) 2 gm in 50 mls @ 25 mls/hr IV ONCE ONE Stop: 06/15/22 10:19 Last Admin: 06/15/22 08:35 Dose: 25 mls/hr Documented By: NELI Lorazepam (Lorazepam 1 Mg Tablet) 1 mg PO BID [facility] Last Admin: 06/15/22 08:23 Dose: 1 mg Documented By: NELI Melatonin (Melatonin 3 Mg Tablet) 6 mg PO BEDTIME PRN PRN Reason: Insomnia Last Admin: 06/14/22 22:40 Dose: 6 mg Documented By: NASIMA Morphine Sulfate (Morphine Sulfate 2 Mg/Ml Cartridge) 2 mg IVPUSH Q6H PRN; Protocol PRN Reason: Pain, moderate-severe Last Admin: 06/15/22 08:25 Dose: 2 mg Documented By: NELI Omeprazole (Omeprazole 20 Mg ) 20 mg PO BID [facility] Last Admin: 06/15/22 08:24 Dose: 20 mg Documented By: NELI Ondansetron HCl (Ondansetron Hcl 4 Mg/2 Ml Vial) 4 mg IVPUSH Q8H PRN PRN Reason: Nausea and Vomiting Sertraline HCl (Sertraline Hcl 50 Mg Tablet) 50 mg PO BID [facility] Last Admin: 06/15/22 08:23 Dose: 50 mg Documented By: NELI Sodium Chloride (0.9 % Sodium Chloride Flush 3 Ml Syringe) 3 ml IVFLUSH QSHIFT [facility] Last Admin: 06/15/22 08:24 Dose: 3 ml Documented By: NELI <TYSON Mrea - Last Filed: 06/15/22 10:22> Labs CBC & Chem 7: : 06/16/22 06:11 06/16/22 06:11 <TYSON Mera - Last Filed: 06/15/22 10:22> Labs: Laboratory Results - last 24 hr 06/14/22 06/15/22 06/15/22 08:45 05:39 05:39 MCV 100.6 H MCH 32.6 MCHC 32.4 RDW 15.1 Plt Count 174 MPV 10.4 Absolute Nucleated RBC 0.000 Nucleated RBC % (auto) 0.0 Anion Gap 14 Estim Creat Clear Calc 53.8 Estimated GFR > 60 Random Glucose 100 Calcium 8.0 L Magnesium 1.4 L* 1.5 L <TYSON Mera - Last Filed: 06/15/22 10:22> Microbiology Microbiology Results: Microbiology 06/12/22 20:07 Blood Culture - Preliminary Blood - Venous No growth after 48 hours. 06/12/22 19:53 Blood Culture - Preliminary Blood - Venous No growth after 48 hours. <TYSON Mera - Last Filed: 06/15/22 10:22> Assessment and Plan (1) Intussusception: Status: Acute <TYSON Mera - Last Filed: 06/15/22 10:22> (2) Clostridium difficile infection: Status: Acute <TYSON Mera - Last Filed: 06/15/22 10:22> Assessment and Plan: Pt is a 72-year-old female with pertinent history of HTN, SEVERIANO, MMD, and GERD with Giuliano's esphagus who presented to the ED for evaluation of non-bloody diarrhea x4 days. Tested positive for C-Diff and CT with evidence for possible SBO and intussusception. #. question of SBO -- CT shows evidence for early SBO with transition point in the left abdomen in small bowel intussusception left abdomen. -- general surgery consulted and found no need for surgical intervention at this time.? They questioned if pt has an SBO since patient had no obstructive symptoms and no upper abdominal pain -- repeat CT with contrast today -- pt initially NPO, but now on clears -- morphine for pain control -- NGT not indicated at this time -- general surgery and GI (Dr. Crawford) following #. Non severe C diff, initial episode: -- admitted with contact precautions -- resuscitated with IV crystalloids in the ER -- continues to have diarrhea, improved, less volume -- fidaxomicin p.o. day 08/12 -- Infectious Disease consult -- IV Flagyl since not tolerating PO well, per ID #. question of pelvic mass -- CT showed thick-walled colon within the right pelvis within the sigmoid colon which warrants lower GI assessment to exclude a mass -- pt now complains of tender right-sided pelvic nodule -- check repeat CT -- consider f/u with GI outpatient, Dr. Crawford #. Hypomagnesemia due to GI losses -- follow labs and replenish as needed # hypokalemia -- likely secondary to diarrhea -- supplement with PO potassium, follow labs daily # abnormal EKG -- EKG showed sinus rhythm with premature atrial complexes and nonspecific ST and T-wave abnormalities -- repeat EKG shows PACs with improved lateral ST changes #. Essential hypertension -- hold?p.o. antihypertensives, restart as appropriate #. Mood disorder -- continue home p.o. medications #.?Chronic macrocytic anemia -- B12 and folate WNL DVT prophylaxis:? Lovenox 30 mg daily Clears diet Full code <TYSON Mera - Last Filed: 06/15/22 10:22> Time Spent With Patient Time: Total time managing care of this patient today ____ minutes. <TYSON Mera - Last Filed: 06/15/22 10:22> Quality Stroke Does the patient have a stroke diagnosis?: No <TYSON Mera - Last Filed: 06/15/22 10:22> VTE Prior VTE?: No <TYSON Mera - Last Filed: 06/15/22 10:22> VTE Risk Level:: Medical - moderate - high <TYSON Mera - Last Filed: 06/15/22 10:22> VTE Device Contraindication: Treatment Not Indicated <TYSON Mera - Last Filed: 06/15/22 10:22> VTE Drug Contraindication: N/A - Med Ordered <TYSON Mera - Last Filed: 06/15/22 10:22>
[2022-06-15] MEDS: Fidaxomicin 200 MG TABLET PO ×2 (11:16→22:38)
[2022-06-15] MEDS: Barium Sulfate Oral (Berry) 450 ML ORAL.SUSP 900 ML PO (11:56)
[2022-06-15] MEDS: iohexoL 350 MG/ML 100 ML INFUS..BTL IV (11:57)
[2022-06-15 15:29] VITALS: BP 152/76; PULSE 75; RESP 17; TEMP 36.1; O2SAT 97
[2022-06-15] MEDS: Potassium Chloride ER 20 MEQ TAB.ER.PRT 40 MEQ PO (16:05)
[2022-06-15 19:25] VITALS: BP 126/67; PULSE 71; RESP 17; TEMP 37.1; O2SAT 98
[2022-06-15] MEDS: Melatonin 3 MG TABLET 6 MG PO (22:35)
[2022-06-15] MEDS: Celecoxib 200 MG CAPSULE PO (22:36)
[2022-06-15] MEDS: Acetaminophen 325 MG TABLET 650 MG PO (22:37)
[2022-06-15] MEDS: Enoxaparin Sodium 30 MG/0.3 ML SYRINGE SUBCUT (22:46)
[2022-06-16] MEDS: 0.9 % Sodium Chloride Flush 3 ML SYRINGE IVFLUSH ×4 (02:29→22:16)
[2022-06-16 03:07] VITALS: BP 115/56; PULSE 64; RESP 16; TEMP 36.9; O2SAT 93
[2022-06-16] MEDS: metroNIDAZOLE/NS 500 MG/100 ML PIGGYBACK 100 MG IV ×3 (04:33→20:15)
[2022-06-16] MEDS: Potassium Chloride ER 20 MEQ TAB.ER.PRT 40 MEQ PO ×2 (04:34→17:15)
[2022-06-16] MEDS: Morphine Sulfate 2 MG/ML CARTRIDGE IVPUSH ×4 (04:42→23:35)
[2022-06-16 06:46] LABS: Hematocrit 27.8 % (37.0-47.0); Hemoglobin 9.3 g/dl (12.0-16.0); Mean Corpuscular HGB Conc 33.5 g/dl (31.0-35.0); Mean Corpuscular Hemoglobin 33.1 pg (27.0-33.0); Mean Corpuscular Volume 98.9 fL (80.0-98.0); Mean Platelet Volume 10.8 fL (9.4-12.3); Platelet Count 184 X10*3/uL (160-400); Red Blood Count 2.81 X10*6/uL (4.20-5.50); White Blood Count 5.1 X10*3/uL (4.8-10.8)
[2022-06-16 07:17] LABS: Anion Gap 10 (12-20); Blood Urea Nitrogen 9 mg/dL (9-16); Calcium 7.9 mg/dL (8.4-10.2); Carbon Dioxide 18 mmol/L (22-29); Chloride 113 mmol/L (96-108); Creatinine Clr Calc Pharmacy 53.8; Estimated Glomerular Filt Rate > 60; Glucose Random 105 mg/dL (60-115); Magnesium 1.5 mg/dL (1.6-2.6); Potassium 3.3 mmol/L (3.3-5.1); Sodium 138 mmol/L (135-145)
[2022-06-16 08:00] VITALS: BP 130/83; PULSE 70; RESP 18; TEMP 35.7
[2022-06-16] MEDS: Sertraline HCL 50 MG TABLET PO ×2 (10:06→20:14)
[2022-06-16] MEDS: Omeprazole 20 MG CAPSULE.DR PO ×2 (10:06→20:14)
[2022-06-16] MEDS: LORazepam 1 MG TABLET PO ×2 (10:06→20:14)
[2022-06-16] MEDS: DULoxetine HCl 30 MG CAPSULE.DR PO ×2 (10:06→20:14)
[2022-06-16] MEDS: Fidaxomicin 200 MG TABLET PO ×2 (10:06→22:12)
--- NOTE | 2022-06-16 10:23 | HO.PM.IMPN ---
Subjective Subjective Date of Service: 06/17/22 Interval History: Seen in follow-up for colitis, C diff diarrhea Interval history: Peristent diarrhea with some abdominal tendernress Review of Systems diarrhea, abd pain Physical Exam Vital Signs: Vital Signs: Last Vital Signs Temp 96.3 F L 06/16/22 08:00 Pulse 70 06/16/22 08:00 Resp 18 06/16/22 08:00 BP 130/83 06/16/22 08:00 Pulse Ox 93 06/16/22 03:07 O2 Del Method 06/16/22 08:00 BMI result Body Mass Index 18.4 Objective Data Active Medications Acetaminophen (Acetaminophen 325 Mg Tablet) 650 mg PO Q6H PRN PRN Reason: Pain, Mild (Pain Scale 1-3) Last Admin: 06/15/22 22:37 Dose: 650 mg Documented By: JOHNNY Benzocaine (Throat Lozenge, Medicated Lozenge) 1 lozenge MUCOUS MEM Q2H PRN PRN Reason: Sore Throat Last Admin: 06/14/22 12:01 Dose: 1 lozenge Documented By: PATRICK Duloxetine HCl (Duloxetine Hcl 30 Mg Capsule.Dr) 30 mg PO BID [facility] Last Admin: 06/16/22 10:06 Dose: 30 mg Documented By: NELI Enoxaparin Sodium (Enoxaparin Sodium 30 Mg/0.3 Ml Syringe) 30 mg SUBCUT Q24H [facility] Last Admin: 06/15/22 22:46 Dose: 30 mg Documented By: JOHNNY Fidaxomicin (Fidaxomicin 200 Mg Tablet) 200 mg PO Q12H [facility] Last Admin: 06/16/22 10:06 Dose: 200 mg Documented By: NELI Metronidazole (Flagyl) 500 mg in 100 mls @ 100 mls/hr IV Q8H [facility] Last Infusion: 06/16/22 05:51 Dose: 0 mls/hr Documented By: JOHNNY Lorazepam (Lorazepam 1 Mg Tablet) 1 mg PO BID [facility] Last Admin: 06/16/22 10:06 Dose: 1 mg Documented By: NELI Melatonin (Melatonin 3 Mg Tablet) 6 mg PO BEDTIME PRN PRN Reason: Insomnia Last Admin: 06/15/22 22:35 Dose: 6 mg Documented By: JOHNNY Morphine Sulfate (Morphine Sulfate 2 Mg/Ml Cartridge) 2 mg IVPUSH Q6H PRN; Protocol PRN Reason: Pain, moderate-severe Last Admin: 06/16/22 04:42 Dose: 2 mg Documented By: JOHNNY Omeprazole (Omeprazole 20 Mg Capsule.) 20 mg PO BID [facility] Last Admin: 06/16/22 10:06 Dose: 20 mg Documented By: NELI Ondansetron HCl (Ondansetron Hcl 4 Mg/2 Ml Vial) 4 mg IVPUSH Q8H PRN PRN Reason: Nausea and Vomiting Potassium Chloride (Potassium Chloride Er 20 Meq Tab.Er.Prt) 40 meq PO Q12H [facility] Stop: 06/16/22 16:01 Last Admin: 06/16/22 04:34 Dose: 40 meq Documented By: JOHNNY Sertraline HCl (Sertraline Hcl 50 Mg Tablet) 50 mg PO BID [facility] Last Admin: 06/16/22 10:06 Dose: 50 mg Documented By: NELI Sodium Chloride (0.9 % Sodium Chloride Flush 3 Ml Syringe) 3 ml IVFLUSH QSHIFT [facility] Last Admin: 06/16/22 10:06 Dose: 3 ml Documented By: NELI Labs CBC & Chem 7: 06/17/22 06:05 06/17/22 06:05 Labs: Laboratory Results - last 24 hr 06/16/22 06/16/22 06:11 06:11 MCV 98.9 H MCH 33.1 H MCHC 33.5 RDW 15.0 Plt Count 184 MPV 10.8 Absolute Nucleated RBC 0.000 Nucleated RBC % (auto) 0.0 Anion Gap 10 L Estim Creat Clear Calc 53.8 Estimated GFR > 60 Random Glucose 105 Calcium 7.9 L Magnesium 1.5 L Assessment and Plan (1) Intussusception: Status: Acute (2) Clostridium difficile infection: Status: Acute Plan Pt is a 72-year-old female with pertinent history of HTN, SEVERIANO, MMD, and GERD with Giuliano's esphagus who presented to the ED for evaluation of non-bloody diarrhea x4 days. Tested positive for C-Diff and CT with evidence for possible SBO and intussusception. #. question of SBO seen on initially CT no longer evident and intussusception left abdomen also resolved. #. C dif diarrhea, with persistent diarreha. On IV Flagy, PO Dificid. add PO Vanco as well given persistent diffiuse bowel thickening on CT. #. question of pelvic mass--no mass seen on repeat CT. Outpatient follow with Dr. Crawford #. Hypomagnesemia d--1.5 replace with IV # hypokalemia--d/t diarrhea, correct as needed # abnormal EKG -- EKG showed sinus rhythm with premature atrial complexes and nonspecific ST and T-wave abnormalities -- repeat EKG shows PACs with improved lateral ST changes #. Essential hypertension--BP normal, hold meds #. Mood disorder -- continue home p.o. medications (Duloxetine) #.?Chronic macrocytic anemia -- B12 and folate WNL DVT prophylaxis:? Lovenox 30 mg daily Need for inpaitent: managemetn of severe c diff diarrhea, resulting in electrolytes abnormalites, with much fluid loss and needing IV Abx Time Spent With Patient Time: Total time managing care of this patient today ____ minutes. Quality Stroke Does the patient have a stroke diagnosis?: No VTE Prior VTE?: No VTE Risk Level:: Medical - moderate - high VTE Device Contraindication: Treatment Not Indicated VTE Drug Contraindication: N/A - Med Ordered
[2022-06-16] MEDS: Magnesium Sulfate/H2O 2 GM/50 ML PIGGYBACK IV (10:56)
[2022-06-16] MEDS: vancomycin HCL 125 MG CAPSULE 250 MG PO ×3 (10:56→22:12)
--- NOTE | 2022-06-16 11:54 | MHC.CM.PN ---
PATIENT NOT CLINICALLY READY FOR DISCHARGE. CM FOLLOWING.
[2022-06-16 15:20] VITALS: BP 116/64; PULSE 66; RESP 17; TEMP 36.6; O2SAT 97
[2022-06-16 19:27] VITALS: BP 147/66; PULSE 70; RESP 17; TEMP 36.3; O2SAT 100
[2022-06-16] MEDS: Acetaminophen 325 MG TABLET 650 MG PO (20:21)
[2022-06-16] MEDS: Enoxaparin Sodium 30 MG/0.3 ML SYRINGE SUBCUT (22:13)
[2022-06-16] MEDS: Melatonin 3 MG TABLET 6 MG PO (23:34)
[2022-06-17] MEDS: Acetaminophen 325 MG TABLET 650 MG PO (02:58)
[2022-06-17] MEDS: ondansetron HCL 4 MG/2 ML VIAL IVPUSH (02:59)
[2022-06-17 03:35] VITALS: BP 135/64; PULSE 66; RESP 16; TEMP 37; O2SAT 99
[2022-06-17] MEDS: vancomycin HCL 125 MG CAPSULE 250 MG PO ×4 (04:10→23:32)
[2022-06-17] MEDS: metroNIDAZOLE/NS 500 MG/100 ML PIGGYBACK 100 MG IV ×3 (04:10→20:31)
[2022-06-17] MEDS: Morphine Sulfate 2 MG/ML CARTRIDGE IVPUSH ×3 (05:15→20:27)
[2022-06-17 06:20] LABS: Hematocrit 28.9 % (37.0-47.0); Hemoglobin 9.3 g/dl (12.0-16.0); Mean Corpuscular HGB Conc 32.2 g/dl (31.0-35.0); Mean Corpuscular Hemoglobin 31.7 pg (27.0-33.0); Mean Corpuscular Volume 98.6 fL (80.0-98.0); Mean Platelet Volume 10.5 fL (9.4-12.3); Platelet Count 200 X10*3/uL (160-400); Red Blood Count 2.93 X10*6/uL (4.20-5.50); Red Cell Distribution Width 15.1 % (11.0-16.0); White Blood Count 5.1 X10*3/uL (4.8-10.8)
[2022-06-17 06:51] LABS: Anion Gap 10 (12-20); Blood Urea Nitrogen 7 mg/dL (9-16); Calcium 7.6 mg/dL (8.4-10.2); Carbon Dioxide 16 mmol/L (22-29); Chloride 114 mmol/L (96-108); Creatinine Clr Calc Pharmacy 60.3; Estimated Glomerular Filt Rate > 60; Glucose Random 102 mg/dL (60-115); Magnesium 1.5 mg/dL (1.6-2.6); Potassium 3.9 mmol/L (3.3-5.1); Sodium 136 mmol/L (135-145)
[2022-06-17 08:00] VITALS: BP 124/64; PULSE 68; RESP 18; TEMP 36.1; O2SAT 97
[2022-06-17] MEDS: Fidaxomicin 200 MG TABLET PO ×2 (10:04→23:32)
[2022-06-17] MEDS: LORazepam 1 MG TABLET PO ×2 (10:04→20:31)
[2022-06-17] MEDS: Omeprazole 20 MG CAPSULE.DR PO ×2 (10:05→20:31)
[2022-06-17] MEDS: Sertraline HCL 50 MG TABLET PO ×2 (10:05→20:31)
[2022-06-17] MEDS: 0.9 % Sodium Chloride Flush 3 ML SYRINGE IVFLUSH ×4 (10:06→23:37)
[2022-06-17] MEDS: DULoxetine HCl 30 MG CAPSULE.DR PO ×2 (10:06→20:30)
--- NOTE | 2022-06-17 10:19 | P.PNIM_ITS ---
Subjective Subjective Date of Service: 06/17/22 Interval History: Seen in follow-up for colitis, C diff diarrhea Interval history: Persistent diarrhea, and very anxious Review of Systems Diarrhea anxiety Physical Exam Vital Signs: Vital Signs: Last Vital Signs Temp 96.9 F 06/17/22 08:00 Pulse 68 06/17/22 08:00 Resp 18 06/17/22 08:00 BP 124/64 06/17/22 08:00 Pulse Ox 97 06/17/22 08:00 O2 Del Method 06/17/22 08:00 BMI result Body Mass Index 18.4 Const: Other: General: AO X 3, no acute distress Resp: CTA bilateral CVS: S1,S2,RRR GI: +BS, mild tenderness Skin: No rash Neuro: motor grossly intact Psych: appropriate affect Objective Data Active Medications Acetaminophen (Acetaminophen 325 Mg Tablet) 650 mg PO Q6H PRN PRN Reason: Pain, Mild (Pain Scale 1-3) Last Admin: 06/17/22 02:58 Dose: 650 mg Documented By: TUMASY Benzocaine (Throat Lozenge, Medicated Lozenge) 1 lozenge MUCOUS MEM Q2H PRN PRN Reason: Sore Throat Last Admin: 06/14/22 12:01 Dose: 1 lozenge Documented By: COBY-SOFABDIAZIZ Duloxetine HCl (Duloxetine Hcl 30 Mg Capsule.Dr) 30 mg PO BID [facility] Last Admin: 06/17/22 10:06 Dose: 30 mg Documented By: CAMRYN Enoxaparin Sodium (Enoxaparin Sodium 30 Mg/0.3 Ml Syringe) 30 mg SUBCUT Q24H [facility] Last Admin: 06/16/22 22:13 Dose: 30 mg Documented By: MORRINL Fidaxomicin (Fidaxomicin 200 Mg Tablet) 200 mg PO Q12H [facility] Last Admin: 06/17/22 10:04 Dose: 200 mg Documented By: CAMRYN Metronidazole (Flagyl) 500 mg in 100 mls @ 100 mls/hr IV Q8H [facility] Last Infusion: 06/17/22 05:19 Dose: 100 mls/hr Documented By: VENCASSIE Lorazepam (Lorazepam 1 Mg Tablet) 1 mg PO BID [facility] Last Admin: 06/17/22 10:04 Dose: 1 mg Documented By: CAMRYN Melatonin (Melatonin 3 Mg Tablet) 6 mg PO BEDTIME PRN PRN Reason: Insomnia Last Admin: 06/16/22 23:34 Dose: 6 mg Documented By: MORRINL Morphine Sulfate (Morphine Sulfate 2 Mg/Ml Cartridge) 2 mg IVPUSH Q6H PRN; Protocol PRN Reason: Pain, moderate-severe Last Admin: 06/17/22 05:15 Dose: 2 mg Documented By: ANUSHKA Omeprazole (Omeprazole 20 Mg Capsule.) 20 mg PO BID [facility] Last Admin: 06/17/22 10:05 Dose: 20 mg Documented By: CAMRYN Ondansetron HCl (Ondansetron Hcl 4 Mg/2 Ml Vial) 4 mg IVPUSH Q8H PRN PRN Reason: Nausea and Vomiting Last Admin: 06/17/22 02:59 Dose: 4 mg Documented By: TATIANA Sertraline HCl (Sertraline Hcl 50 Mg Tablet) 50 mg PO BID [facility] Last Admin: 06/17/22 10:05 Dose: 50 mg Documented By: CAMRYN Sodium Chloride (0.9 % Sodium Chloride Flush 3 Ml Syringe) 3 ml IVFLUSH QSHIFT [facility] Last Admin: 06/17/22 10:06 Dose: 3 ml Documented By: CAMRYN Vancomycin HCl (Vancomycin Hcl 125 Mg Capsule) 250 mg PO Q6H [facility] Last Admin: 06/17/22 10:04 Dose: 250 mg Documented By: CAMRYN Labs CBC & Chem 7: 06/17/22 06:05 06/17/22 06:05 Labs: Laboratory Results - last 24 hr 06/17/22 06/17/22 06:05 06:05 MCV 98.6 H MCH 31.7 MCHC 32.2 RDW 15.1 Plt Count 200 MPV 10.5 Absolute Nucleated RBC 0.000 Nucleated RBC % (auto) 0.0 Anion Gap 10 L Estim Creat Clear Calc 60.3 Estimated GFR > 60 Random Glucose 102 Calcium 7.6 L Magnesium 1.5 L Assessment and Plan (1) Intussusception: Status: Acute (2) Clostridium difficile infection: Status: Acute Plan Pt is a 72-year-old female with pertinent history of HTN, SEVERIANO, MMD, and GERD with Giuliano's esphagus who presented to the ED for evaluation of non-bloody diarrhea x4 days. Tested positive for C-Diff and CT with evidence for possible SBO and intussusception. #. question of SBO seen on initially CT no longer evident and intussusception left abdomen also resolved. #. C dif diarrhea, with persistent diarreha. On IV Flagy, PO Dificid and PO Vanco #. question of pelvic mass--no mass ? right groin hernia Outpatient follow with Dr. Crawford #. Hypomagnesemia d--1.5 replace with IV mag # hypokalemia--d/t diarrhea, correct as needed, presently 3.9 # abnormal EKG -- EKG showed sinus rhythm with premature atrial complexes and nonspecific ST and T-wave abnormalities -- repeat EKG shows PACs with improved lateral ST changes #. Essential hypertension--BP normal, hold meds #. Mood disorder -- continue home p.o. medications (Duloxetine) #.?Chronic macrocytic anemia -- B12 and folate WNL DVT prophylaxis:? Lovenox 30 mg daily Need for inpaitent: managemetn of severe c diff diarrhea, resulting in electrolytes abnormalites, with much fluid loss and needing IV Abx Time Spent With Patient Time: Total time managing care of this patient today ____ minutes. Quality Stroke Does the patient have a stroke diagnosis?: No VTE Prior VTE?: No VTE Risk Level:: Medical - moderate - high VTE Device Contraindication: Treatment Not Indicated VTE Drug Contraindication: N/A - Med Ordered
--- NOTE | 2022-06-17 13:40 | MHC.CLN ---
F/U DIET=CLEAR LIQUIDS. ENSURE CLEAR TID PROVIDES ADDITIONAL 720 KCALS, 24 G PROTEIN. PREFERS TO FOLLOW LACTOSE FREE DIET DUE TO INTOLERANCE. CONTINUES WITH PERSISTENT DIARRHEA FROM C-DIFF. TODAY IS DAY 5 OF CLEAR LIQUID DIET. CONSIDER ALTERNATE NUTRITION IF UNABLE TO TOLERATE/ADVANCE DIET. FOLLOW FOR DIET ADVANCEMENT AND PO INTAKE.
[2022-06-17 15:17] VITALS: BP 126/80; PULSE 68; RESP 19; TEMP 36.3; O2SAT 97
[2022-06-17 19:31] VITALS: BP 150/53; PULSE 65; RESP 17; TEMP 36.3; O2SAT 97
[2022-06-17] MEDS: Melatonin 3 MG TABLET 6 MG PO (20:31)
[2022-06-17] MEDS: Enoxaparin Sodium 30 MG/0.3 ML SYRINGE SUBCUT (23:32)
[2022-06-18 04:00] VITALS: BP 130/76; PULSE 74; RESP 14; TEMP 36.4; O2SAT 96
[2022-06-18] MEDS: Morphine Sulfate 2 MG/ML CARTRIDGE IVPUSH (04:15)
[2022-06-18] MEDS: vancomycin HCL 125 MG CAPSULE 250 MG PO ×4 (04:21→21:25)
[2022-06-18] MEDS: metroNIDAZOLE/NS 500 MG/100 ML PIGGYBACK 100 MG IV ×2 (04:21→12:32)
[2022-06-18 05:53] LABS: Hematocrit 27.6 % (37.0-47.0); Hemoglobin 9.1 g/dl (12.0-16.0); Mean Corpuscular Hemoglobin 32.5 pg (27.0-33.0); Mean Corpuscular Volume 98.6 fL (80.0-98.0); Platelet Count 201 X10*3/uL (160-400); Red Cell Distribution Width 15.5 % (11.0-16.0); White Blood Count 4.5 X10*3/uL (4.8-10.8)
[2022-06-18 06:14] LABS: Anion Gap 9 (12-20); Blood Urea Nitrogen 6 mg/dL (9-16); Calcium 7.8 mg/dL (8.4-10.2); Carbon Dioxide 19 mmol/L (22-29); Chloride 114 mmol/L (96-108); Estimated Glomerular Filt Rate > 60; Glucose Random 94 mg/dL (60-115); Magnesium 1.3 mg/dL (1.6-2.6); Potassium 3.6 mmol/L (3.3-5.1); Sodium 138 mmol/L (135-145)
--- NOTE | 2022-06-18 06:20 | MHC.PIE ---
p; mag 1.3 i; dr colin notified. e; will cont to monitor
[2022-06-18 07:42] VITALS: BP 124/60; PULSE 64; RESP 19; TEMP 35.6; O2SAT 93
[2022-06-18] MEDS: Sertraline HCL 50 MG TABLET PO ×2 (08:18→21:25)
[2022-06-18] MEDS: DULoxetine HCl 30 MG CAPSULE.DR PO ×2 (08:18→21:25)
[2022-06-18] MEDS: LORazepam 1 MG TABLET PO ×2 (08:18→21:25)
[2022-06-18] MEDS: Omeprazole 20 MG CAPSULE.DR PO ×2 (08:18→21:25)
[2022-06-18] MEDS: Magnesium Sulfate/H2O 2 GM/50 ML PIGGYBACK IV (08:18)
[2022-06-18] MEDS: 0.9 % Sodium Chloride Flush 3 ML SYRINGE IVFLUSH ×3 (08:19→21:26)
[2022-06-18] MEDS: Fidaxomicin 200 MG TABLET PO ×2 (10:26→21:25)
[2022-06-18] MEDS: Acetaminophen 325 MG TABLET 650 MG PO ×2 (10:26→16:39)
--- NOTE | 2022-06-18 14:47 | P.PNIM_ITS ---
Subjective Subjective Date of Service: 06/18/22 Interval History: feeling better no nausea no vomiting, no abdominal pain tolerating diet, had brown soft stool, no frequent bowel movements, no fevers,no chills, lives alone at home, has been mostly in bed, use a walker and a wheelchair for ambulation, no acute events overnight. Review of Systems Review of Systems: Yes all other systems are reviewed and are negative Physical Exam Vital Signs: Vital Signs: Last Vital Signs Temp 96.1 F L 06/18/22 07:42 Pulse 64 06/18/22 07:42 Resp 19 06/18/22 07:42 BP 124/60 06/18/22 07:42 Pulse Ox 93 06/18/22 07:42 O2 Del Method 06/18/22 07:42 BMI result Body Mass Index 18.4 Const: Other: General resting comfortably in no acute distress. Neck supple no JVD. CVS regular rate rhythm, Respiratory lungs clear to auscultation, no respiratory distress, no wheeze, no rhonchi. Gastrointestinal abdomen soft, nontender, bowel sounds audible, no guarding , no rigidity. Extremities no edema. Neuro nonfocal Skin no rash psych appropriate affect Objective Data Active Medications Acetaminophen (Acetaminophen 325 Mg Tablet) 650 mg PO Q6H PRN PRN Reason: Pain, Mild (Pain Scale 1-3) Last Admin: 06/18/22 10:26 Dose: 650 mg Documented By: CAMRYN Benzocaine (Throat Lozenge, Medicated Lozenge) 1 lozenge MUCOUS MEM Q2H PRN PRN Reason: Sore Throat Last Admin: 06/14/22 12:01 Dose: 1 lozenge Documented By: PATRICK Duloxetine HCl (Duloxetine Hcl 30 Mg Capsule.Dr) 30 mg PO BID [facility] Last Admin: 06/18/22 08:18 Dose: 30 mg Documented By: CAMRYN Enoxaparin Sodium (Enoxaparin Sodium 30 Mg/0.3 Ml Syringe) 30 mg SUBCUT Q24H [facility] Last Admin: 06/17/22 23:32 Dose: 30 mg Documented By: JACKI Fidaxomicin (Fidaxomicin 200 Mg Tablet) 200 mg PO Q12H [facility] Last Admin: 06/18/22 10:26 Dose: 200 mg Documented By: CAMRYN Metronidazole (Flagyl) 500 mg in 100 mls @ 100 mls/hr IV Q8H [facility] Last Infusion: 06/18/22 14:07 Dose: 0 mls/hr Documented By: CAMRYN Lorazepam (Lorazepam 1 Mg Tablet) 1 mg PO BID [facility] Last Admin: 06/18/22 08:18 Dose: 1 mg Documented By: CAMRYN Melatonin (Melatonin 3 Mg Tablet) 6 mg PO BEDTIME PRN PRN Reason: Insomnia Last Admin: 06/17/22 20:31 Dose: 6 mg Documented By: NASIMA Omeprazole (Omeprazole 20 Mg Capsule.) 20 mg PO BID [facility] Last Admin: 06/18/22 08:18 Dose: 20 mg Documented By: CAMRYN Ondansetron HCl (Ondansetron Hcl 4 Mg/2 Ml Vial) 4 mg IVPUSH Q8H PRN PRN Reason: Nausea and Vomiting Last Admin: 06/17/22 02:59 Dose: 4 mg Documented By: TATIANA Sertraline HCl (Sertraline Hcl 50 Mg Tablet) 50 mg PO BID [facility] Last Admin: 06/18/22 08:18 Dose: 50 mg Documented By: CAMRYN Sodium Chloride (0.9 % Sodium Chloride Flush 3 Ml Syringe) 3 ml IVFLUSH QSHIFT [facility] Last Admin: 06/18/22 10:28 Dose: 3 ml Documented By: CAMRYN Vancomycin HCl (Vancomycin Hcl 125 Mg Capsule) 250 mg PO Q6H [facility] Last Admin: 06/18/22 10:26 Dose: 250 mg Documented By: CAMRYN Labs CBC & Chem 7: 06/18/22 05:36 06/18/22 05:36 Labs: Laboratory Results - last 24 hr 06/18/22 06/18/22 05:36 05:36 MCV 98.6 H MCH 32.5 MCHC 33.0 RDW 15.5 Plt Count 201 MPV 10.0 Absolute Nucleated RBC 0.000 Nucleated RBC % (auto) 0.0 Anion Gap 9 L Estim Creat Clear Calc 56.0 Estimated GFR > 60 Random Glucose 94 Calcium 7.8 L Magnesium 1.3 L* Microbiology Microbiology Results: Microbiology 06/12/22 20:07 Blood Culture - Final Blood - Venous No growth after 5 days. 06/12/22 19:53 Blood Culture - Final Blood - Venous No growth after 5 days. Assessment and Plan (1) Intussusception: Status: Acute (2) Clostridium difficile infection: Status: Acute Plan Pt is a 72-year-old female with pertinent history of HTN, SEVERIANO, MMD, and GERD with Giuliano's esphagus who presented to the ED for evaluation of non-bloody diarrhea x4 days. Tested positive for C-Diff and CT with evidence for possible SBO and intussusception. #. question of SBO seen on initially CT no longer evident and intussusception left abdomen also resolved. #. C dif diarrhea, now with soft stool,On IV Flagy day 6, PO Dificid day 6 and PO Vanco day 2 will DC IV Flagyl, since diarrhea improving will discharge patient home on total 10 days of Dificid and po vanco encourage out of bed to chair and possible discharge tomorrow #. question of pelvic mass--no mass ? right groin hernia Outpatient follow with Dr. Crawford #. Hypomagnesemia --mg 1.3 , likely due to diarrhea 2 g IV magnesium given will follow magnesium level at a.m., avoid by mouth magnesium due to diarrhea. # hypokalemia--d/t diarrhea, correct as needed, presently 3.6 # abnormal EKG -- EKG showed sinus rhythm with premature atrial complexes and nonspecific ST and T-wave abnormalities -- repeat EKG shows PACs with improved lateral ST changes #. Essential hypertension--BP normal, hold meds #. Mood disorder -- continue home p.o. medications (Duloxetine) #.?Chronic macrocytic anemia -- B12 and folate WNL DVT prophylaxis:? Lovenox 30 mg daily Need for inpaitent: managemetn of severe c diff diarrhea, resulting in electrolytes abnormalites, with much fluid loss Time Spent With Patient Time: Total time managing care of this patient today ____ minutes. Quality Stroke Does the patient have a stroke diagnosis?: No VTE Prior VTE?: No VTE Risk Level:: Medical - moderate - high VTE Device Contraindication: Treatment Not Indicated VTE Drug Contraindication: N/A - Med Ordered
[2022-06-18 15:06] VITALS: BP 159/71; PULSE 78; RESP 18; TEMP 36.7; O2SAT 100
[2022-06-18 19:19] VITALS: BP 128/82; PULSE 66; RESP 18; TEMP 36.8; O2SAT 97
[2022-06-18] MEDS: Melatonin 3 MG TABLET 6 MG PO (21:25)
[2022-06-18] MEDS: Enoxaparin Sodium 30 MG/0.3 ML SYRINGE SUBCUT (21:25)
--- NOTE | 2022-06-18 22:26 | PC.NURSE ---
pt crying at times due to pain, but refusing to let this automobile service writer contact md for pain medications. not even an hour later, pt on phone watching tv and shows no sings of pain. pt also noted with unsteadiness on feet, placed on high fall risk, now accusing staff of treating her like a child and this is the worst hospital ever and ect. yet less then 20 cristhian later, pt all smiles and thanking this automobile service writer and staff..... will cont to monitor
[2022-06-19 03:29] VITALS: BP 142/68; PULSE 67; RESP 14; TEMP 36.2; O2SAT 98
[2022-06-19] MEDS: vancomycin HCL 125 MG CAPSULE 250 MG PO ×3 (04:04→16:11)
[2022-06-19 07:25] VITALS: BP 177/75; PULSE 73; RESP 18; TEMP 36.5; O2SAT 100
[2022-06-19 07:46] LABS: Hematocrit 31.2 % (37.0-47.0); Hemoglobin 10.4 g/dl (12.0-16.0); Mean Corpuscular HGB Conc 33.3 g/dl (31.0-35.0); Mean Corpuscular Hemoglobin 32.3 pg (27.0-33.0); Mean Corpuscular Volume 96.9 fL (80.0-98.0); Mean Platelet Volume 10.3 fL (9.4-12.3); Platelet Count 227 X10*3/uL (160-400); Red Blood Count 3.22 X10*6/uL (4.20-5.50); Red Cell Distribution Width 15.2 % (11.0-16.0); White Blood Count 4.9 X10*3/uL (4.8-10.8)
[2022-06-19 08:06] LABS: Anion Gap 10 (12-20); Blood Urea Nitrogen 6 mg/dL (9-16); Calcium 8.3 mg/dL (8.4-10.2); Carbon Dioxide 22 mmol/L (22-29); Chloride 111 mmol/L (96-108); Estimated Glomerular Filt Rate > 60; Glucose Random 102 mg/dL (60-115); Magnesium 1.4 mg/dL (1.6-2.6); Potassium 4.3 mmol/L (3.3-5.1); Sodium 139 mmol/L (135-145)
--- NOTE | 2022-06-19 08:09 | P.PNIM_ITS ---
Subjective Subjective Date of Service: 06/19/22 Interval History: feeling better no nausea no vomiting, no abdominal pain tolerating diet, had brown soft stool, no frequent bowel movements, no fevers,no chills, lives alone at home, has been mostly in bed, use a walker and a wheelchair for ambulation, no acute events overnight. Physical Exam Vital Signs: Vital Signs: Last Vital Signs Temp 97.7 F 06/19/22 07:25 Pulse 73 06/19/22 07:25 Resp 18 06/19/22 07:25 BP 177/75 H 06/19/22 07:25 Pulse Ox 100 06/19/22 07:25 O2 Del Method 06/19/22 07:25 BMI result Body Mass Index 18.4 Const: Other: General resting comfortably in no acute distress. Neck supple no JVD. CVS regular rate rhythm, Respiratory lungs clear to auscultation, no respiratory distress, no wheeze, no rhonchi. Gastrointestinal abdomen soft, nontender, bowel sounds audible, no guarding , no rigidity. Extremities no edema. Neuro nonfocal Skin no rash psych appropriate affect Objective Data Active Medications Acetaminophen (Acetaminophen 325 Mg Tablet) 650 mg PO Q6H PRN PRN Reason: Pain, Mild (Pain Scale 1-3) Last Admin: 06/18/22 16:39 Dose: 650 mg Documented By: CAMRYN Benzocaine (Throat Lozenge, Medicated Lozenge) 1 lozenge MUCOUS MEM Q2H PRN PRN Reason: Sore Throat Last Admin: 06/14/22 12:01 Dose: 1 lozenge Documented By: PATRICK Duloxetine HCl (Duloxetine Hcl 30 Mg Capsule.Dr) 30 mg PO BID [facility] Last Admin: 06/18/22 21:25 Dose: 30 mg Documented By: JACKI Enoxaparin Sodium (Enoxaparin Sodium 30 Mg/0.3 Ml Syringe) 30 mg SUBCUT Q24H [facility] Last Admin: 06/18/22 21:25 Dose: 30 mg Documented By: JACKI Fidaxomicin (Fidaxomicin 200 Mg Tablet) 200 mg PO Q12H [facility] Last Admin: 06/18/22 21:25 Dose: 200 mg Documented By: JACKI Lorazepam (Lorazepam 1 Mg Tablet) 1 mg PO BID [facility] Last Admin: 06/18/22 21:25 Dose: 1 mg Documented By: JACKI Melatonin (Melatonin 3 Mg Tablet) 6 mg PO BEDTIME PRN PRN Reason: Insomnia Last Admin: 06/18/22 21:25 Dose: 6 mg Documented By: JACKI Omeprazole (Omeprazole 20 Mg Capsule.) 20 mg PO BID [facility] Last Admin: 06/18/22 21:25 Dose: 20 mg Documented By: JACKI Ondansetron HCl (Ondansetron Hcl 4 Mg/2 Ml Vial) 4 mg IVPUSH Q8H PRN PRN Reason: Nausea and Vomiting Last Admin: 06/17/22 02:59 Dose: 4 mg Documented By: TATIANA Sertraline HCl (Sertraline Hcl 50 Mg Tablet) 50 mg PO BID [facility] Last Admin: 06/18/22 21:25 Dose: 50 mg Documented By: JACKI Sodium Chloride (0.9 % Sodium Chloride Flush 3 Ml Syringe) 3 ml IVFLUSH QSHIFT [facility] Last Admin: 06/18/22 21:26 Dose: 3 ml Documented By: JACKI Vancomycin HCl (Vancomycin Hcl 125 Mg Capsule) 250 mg PO Q6H [facility] Last Admin: 06/19/22 04:04 Dose: 250 mg Documented By: JACKI Labs CBC & Chem 7: 06/19/22 06:27 06/19/22 06:27 Labs: Laboratory Results - last 24 hr 06/19/22 06/19/22 06:27 06:27 MCV 96.9 MCH 32.3 MCHC 33.3 RDW 15.2 Plt Count 227 MPV 10.3 Absolute Nucleated RBC 0.000 Nucleated RBC % (auto) 0.0 Anion Gap 10 L Estim Creat Clear Calc 56.0 Estimated GFR > 60 Random Glucose 102 Calcium 8.3 L D Magnesium 1.4 L* Assessment and Plan (1) Intussusception: Status: Acute (2) Clostridium difficile infection: Status: Acute Plan Pt is a 72-year-old female with pertinent history of HTN, SEVERIANO, MMD, and GERD with Giuliano's esphagus who presented to the ED for evaluation of non-bloody diarrhea x4 days. Tested positive for C-Diff and CT with evidence for possible SBO and intussusception. #. question of SBO seen on initially CT no longer evident and intussusception left abdomen also resolved, was evaluated by surgery with no clear clinical evidence of small ngozi obstruction and was thus managed just clinicall and ultimately small bowel obstruction ruled out. #. C dif diarrhea and diffuse colitis without toxic megacolon, initially treated with IV Flagyl and Dificid and because of persistent diarrhea and abdominal dicomfort. PO Vancomycin was added on Day 4 and is presently doing muc h better. No longer has abdominal pain, stool are forming. She is tolerating regular diet and will be discharged with PO Vancomycin. She has received dificid for 7 days now, Flagyl was discontinued after 6 days and has bria PO vancomycin for 3 days now. #. question of pelvic mass--no mass ? right groin hernia--repeat CT on 06/15 showed Small bowel intussusception no longer seen. Question area of wall thickening of the small bowel in the left lower quadrant in the region of previous intussusception. No definite small bowel mass appreciated. Diffuse wall thickening of the colon suggestive of colitis. Large esophageal hernia. Stable multiple compression fractures and evidence of old trauma to the pelvis. Question small right groin hernia containing fluid versus cystic lymph node.. ? #. Hypomagnesemia --mg 1.4 , likely related to diarrhea, and has been replaced will discharge with oral supplement and to avoid PPIs # hypokalemia--d/t diarrhea, correct as needed, presently 4.3 # abnormal EKG -- EKG showed sinus rhythm with premature atrial complexes and nonspecific ST and T-wave abnormalities -- repeat EKG shows PACs with improved lateral ST changes. No symptoms and no indication for further testing #. Essential hypertension-variable BPs, mostly normal, to restart home medications #. Mood disorder -- continue home p.o. medications (Duloxetine) #.?Chronic macrocytic anemia -- B12 and folate WNL DVT prophylaxis:? Lovenox 30 mg daily Need for inpaitent: managemetn of severe c diff diarrhea, resulting in electrolytes abnormalites, with much fluid loss Dispo home today Time Spent With Patient Time: Total time managing care of this patient today ____ minutes. Quality Stroke Does the patient have a stroke diagnosis?: No VTE Prior VTE?: No VTE Risk Level:: Medical - moderate - high VTE Device Contraindication: Treatment Not Indicated VTE Drug Contraindication: N/A - Med Ordered
[2022-06-19] MEDS: DULoxetine HCl 30 MG CAPSULE.DR PO (08:52)
[2022-06-19] MEDS: LORazepam 1 MG TABLET PO (08:52)
[2022-06-19] MEDS: 0.9 % Sodium Chloride Flush 3 ML SYRINGE IVFLUSH (08:52)
[2022-06-19] MEDS: Magnesium Sulfate/H2O 2 GM/50 ML PIGGYBACK IV ×2 (08:52→11:12)
[2022-06-19] MEDS: Sertraline HCL 50 MG TABLET PO (08:52)
[2022-06-19] MEDS: Omeprazole 20 MG CAPSULE.DR PO (08:52)
[2022-06-19] MEDS: Fidaxomicin 200 MG TABLET PO (10:02)
--- NOTE | 2022-06-19 11:28 | PM.DS ---
DS: Providers Provider Date of Service: 06/19/22 Date of admission: 06/12/22 21:52 Primary care physician: Kevyn Mckeon MD Consults: 06/12/22 19:32 Consult to Infectious Diseases Routine Consulting Provider: Marilyn Moss Reason for consultation: c diff 06/13/22 08:12 Consult to General Surgery Routine Consulting Provider: Sunny Knutson Reason for consultation: SBO, intussusception Has provider been notified: Yes 06/14/22 08:43 Consult to Gastroenterology Routine Consulting Provider: Jagjit Crawford Reason for consultation: hx of barretts esophagus, worsening reflux symptoms Has provider been notified: No DS: Diagnosis Discharge Diagnosis (1) Intussusception: Status: Resolved (2) Clostridium difficile infection: Status: Acute DS: Summary Hospital Course Hospital Course: admission hpi: Chief Complaint:? diarrhea This is a 72-year-old female with pertinent history of essential hypertension, generalized anxiety disorder/major depressive disorder presents to the emergency department for evaluation of diarrhea.? Patient states it started 4 days ago and has progressively worsened.? On the day of presentation, she had multiple episodes of nonbloody diarrhea.? Patient finished p.o. Augmentin for sinusitis about 5 days ago.? Also feels weak and dehydrated due to multiple episodes of diarrhea.? Admits nausea but no vomiting.? Also has associated generalized discomfort in the abdomen.? Patient denies melena, hematochezia, chest discomfort, palpitations, shortness of breath, changes in urinary habits.? No history of C diff. Does have history of IBS. Hospital course: #. question of SBO seen on initially CT no longer evident and intussusception left abdomen also resolved, was evaluated by surgery with no clear clinical evidence of small ngozi obstruction and was thus managed just clinicall and ultimately small bowel obstruction ruled out. #. C dif diarrhea and diffuse colitis without toxic megacolon, initially treated with IV Flagyl and Dificid and because of persistent diarrhea and abdominal dicomfort. PO Vancomycin was added on Day 4 and is presently doing much better. No longer has abdominal pain, stool are forming. She is tolerating regular diet and will be discharged with PO Vancomycin. She has received dificid for 7 days now, Flagyl was discontinued after 6 days and has bria PO vancomycin for 3 days now. #. question of pelvic mass--no mass ? right groin hernia--repeat CT on 06/15 showed Small bowel intussusception no longer seen. Question area of wall thickening of the small bowel in the left lower quadrant in the region of previous intussusception. No definite small bowel mass appreciated. Diffuse wall thickening of the colon suggestive of colitis. Large esophageal hernia. Stable multiple compression fractures and evidence of old trauma to the pelvis. Question small right groin hernia containing fluid versus cystic lymph node.. ? #. Hypomagnesemia --mg 1.4 , likely related to diarrhea, and has been replaced will discharge with oral supplement and to avoid PPIs # hypokalemia--d/t diarrhea, correct as needed, presently 4.3 # abnormal EKG -- EKG showed sinus rhythm with premature atrial complexes and nonspecific ST and T-wave abnormalities -- repeat EKG shows PACs with improved lateral ST changes. No symptoms and no indication for further testing #. Essential hypertension-variable BPs, mostly normal, to restart home medications #. Mood disorder -- continue home p.o. medications (Duloxetine) #.?Chronic macrocytic anemia -- B12 and folate WNL Time Spent with Patient Time attestation: Total time managing care of this patient today ____ minutes. Discharge coordination time: Greater than 30 minutes Quality: Safe Use of Opioids Does Pt have an Active Cancer Diagnosis on the Problem List?: No Quality: Stroke Does the patient have a stroke diagnosis?: No Physical Exam Vital Signs: Vital Signs: Last Vital Signs Temp 97.7 F 06/19/22 07:25 Pulse 73 06/19/22 07:25 Resp 18 06/19/22 07:25 BP 177/75 H 06/19/22 07:25 Pulse Ox 100 06/19/22 07:25 O2 Del Method 06/19/22 07:25 BMI result Body Mass Index 18.4 Const: Other: General: AO X 3, no acute distress Resp: CTA bilateral CVS: S1,S2,RRR GI: +BS, NT, no distention Skin: No rash Neuro: motor grossly intact Psych: appropriate affect DS: Data Data Completed and Pending Labs on day of discharge: Laboratory Results - last 24 hr 06/19/22 06/19/22 06:27 06:27 WBC 4.9 RBC 3.22 L Hgb 10.4 L Hct 31.2 L MCV 96.9 MCH 32.3 MCHC 33.3 RDW 15.2 Plt Count 227 MPV 10.3 Absolute Nucleated RBC 0.000 Nucleated RBC % (auto) 0.0 Sodium 139 Potassium 4.3 Chloride 111 H Carbon Dioxide 22 Anion Gap 10 L BUN 6 L Creatinine 0.71 Estim Creat Clear Calc 56.0 Estimated GFR > 60 Random Glucose 102 Calcium 8.3 L D Magnesium 1.4 L* Discharge Plan Discharge Anticipated Discharge Date/Time: 06/19/22 11:12 Patient Disposition: Home Health Service Discharge Diagnosis: C dif colitis, SBO ruled out. Referrals: Kevyn Mckeon MD [Primary Care Provider] - 1 Week Discharge Medications: New vancomycin 125 mg Capsule 125 mg PO Q6H Qty: 28 0RF Dificid 200 mg Tablet 200 mg PO Q12H Qty: 8 0RF famotidine [Pepcid] 20 mg tablet 20 mg PO BID Qty: 60 0RF magnesium oxide 400 mg magnesium tablet 400 mg PO DAILY Qty: 30 0RF Continued amlodipine 10 mg tablet 1 tab PO DAILY sertraline 50 mg tablet 1 tab PO BID duloxetine 30 mg capsule,delayed release(DR/EC) 1 cap PO BID lorazepam 1 mg tablet 1 mg PO BID lisinopril 20 mg tablet 20 mg PO DAILY ibuprofen 800 mg tablet 800 mg PO BID Discontinued pantoprazole 40 mg tablet,delayed release (DR/EC) 40 mg PO BID Discharge Orders: Discharge Order (Routine); Ordered 06/19/22 Ordered By: Darian Oswald Diet: Advance to usual diet Activity on Discharge: As tolerated Stand Alone Forms: Patient Portal Discharge page Care Plan Goals: Full recovery from c dif colitis Health Concerns: C dif colitis and diarrhea Plan of Treatment: Take Dificid and Vancomycin as recommended and follow up wity your Doctor in a week take Magensium supplement Follow up with your Doctor in a week Assessment: as above Patient Instructions: Famotidine (By mouth), Vancomycin (By mouth), Magnesium Oxide (By mouth), Fidaxomicin (By mouth) Discharge Date/Time: 06/19/22 16:43
[2022-06-19] MEDS: amLODIPine Besylate 10 MG TABLET PO (12:51)
[2022-06-19 15:25] LABS: Magnesium 2.7 mg/dL (1.6-2.6)
--- NOTE | 2022-06-19 15:52 | W.MHC.F2F ---
Service Date Service Date: 06/19/22 Encounter Date of encounter: 06/19/22 Reasons for Services Signs and symptoms assessed: weakness from prolonged hospitalization from c dif, colitis Reason for retirement: medication management and teach disease management Homebound: Leaving the home is medically contraindicated at this time without the asist of a device and/or another person due th the listed conditions above and below. Reason homebound: unsteady gait / fall risk and weakness related to hospital stay Homebound supporting statement: Homebound due weakness from cdif colitis causing weakness above baseline weakness and therefore needs the assistance of another person Certification: Based on the above findings, I certify that this patient is confined to the home and needs intermittent retirement care, physical therapy and/or speech therapy, or continues to need occupational therapy. The patient is under my care, and I have initiated the establishment of the plan of care. The patient will be followed by a physician who will periodically review the plan of care. Time Spent With Patient Time: Total time managing care of this patient today ____ minutes.
[2022-06-19 15:56] VITALS: BP 167/76; PULSE 75; RESP 20; TEMP 37; O2SAT 99
== END 2022-06-19 16:43 | disposition home health service (06) | DRG 372 ==
LOC: HO.ED 19:26 → HO.EDOVER 21:59 → HO.S3 06-13 13:57
PROVIDERS: Physician Assistant; Student in an Organized Health Care Education/Training Program; Admitting Provider Student in an Organized Health Care Education/Training Program; Emergency Provider Internal Medicine; PCP Family Medicine; Visit Provider Internal Medicine
DX: A04.72 Enterocolitis due to Clostridium difficile, not specified as recurrent (principal); K56.1 Intussusception; F32.9 Major depressive disorder, single episode, unspecified; I10 Essential (primary) hypertension; F41.1 Generalized anxiety disorder; E83.42 Hypomagnesemia; G89.29 Other chronic pain; K21.9 Gastro-esophageal reflux disease without esophagitis; K22.70 Barrett's esophagus without dysplasia; E87.6 Hypokalemia; D53.9 Nutritional anemia, unspecified; F17.210 Nicotine dependence, cigarettes, uncomplicated; Z71.6 Tobacco abuse counseling; Z20.822 Contact with and (suspected) exposure to COVID-19; Z88.2 Allergy status to sulfonamides; Z88.5 Allergy status to narcotic agent; Z79.899 Other long term (current) drug therapy
CPT/HCPCS: 36415; 74177; 80048; 80076; 81003; 82607; 82746; 83605; 83690; 83735; 85025; 85027; 86140; 87040; 87324; 87493; 87502; 87507; 87635; 93005; 96361; 96365; 96366; 96375; 99285; J1650; J2270; J2405; J3475; Q9967

== ENCOUNTER 2022-08-03 12:30 | Day surgery (SDC) | payer MEDICARE, SELFPAY ==
[2022-08-03 06:15] VITALS: BMI 18.0
[2022-08-03 12:35] VITALS: BP 132/99; PULSE 83; RESP 18; TEMP 36.1; O2SAT 99
[2022-08-03] MEDS: Lactated Ringers 1,000 ML 50 ML IVCONT (12:50)
--- NOTE | 2022-08-03 12:50 | HO.ANESPROP2 ---
HPI - Anesthesia Eval Consult details Narrative: 72 yr old female for upper endo PMFSH Active Problems Active Problems: All Active Problems (Updated 06/27/22 @ 00:01 by Patricia Veliz) Clostridium difficile infection (Acute) Chronic pain syndrome (Acute) Postlaminectomy syndrome (Acute) Thrombosed hemorrhoids (Acute) Past Medical History Medical History Anxiety Chronic pain syndrome Hypertension Postlaminectomy syndrome Severe major depression Thrombosed hemorrhoids Family History Family History Father Hypertension Heart disease Mother History of lumpectomy Family history of problems with anesthesia: No Surgical History Surgical History History of bunionectomy History of D&C History of foot surgery History of hammer toe correction History of hand surgery History of Problems with Anesthesia: No Social History Social History Household Members: None Housing: Condominium Do you presently have visiting nurse or other home services: No Alcohol intake: current Alcohol intake frequency: does not drink Alcohol type: wine Patient Tobacco Use Status: Current everyday Tobacco user Tobacco use type: Cigarette Cigarettes Per Day: 8 e-Cigarette/Vaping Use: Currently Using Second Hand Smoke Exposure: No Are you DNR?: No Advance Directives: No Advance Directives Information Provided: Yes service: No Current occupational status: retired Meds Allergies Allergy/AdvReac Type Severity Reaction Status Date / Time Sulfa (Sulfonamide Allergy Intermediate ITCHING/DARSHAN Verified 08/03/22 07:07 Antibiotics) H [SULFA (SULFONAMIDE ANTIBIOTICS)] sulfadiazine Allergy Unknown Unknown Verified 06/02/21 10:57 tree nut [TREE NUT] AdvReac Intermediate GI UPSET Verified 08/03/22 07:06 acetaminophen [From PERCOCET] AdvReac Unknown NAUSEA Verified 08/03/22 07:06 meperidine [From Demerol] AdvReac Unknown Nausea Verified 08/02/22 14:16 oxycodone [Percocet] AdvReac Unknown Nausea Verified 08/02/22 14:16 Flonase Allergy Unknown Unknown Uncoded 06/02/21 10:57 ZyrTEC Allergy Unknown Unknown Uncoded 06/02/21 10:57 Active Medications: Current Medications Lactated Ringer's (Lr) 1,000 mls @ 50 mls/hr IVCONT .Q20H POOL Home Medications Medication Instructions Recorded Confirmed Last Taken Type ibuprofen 800 mg tablet 800 mg PO BID 05/18/20 08/03/22 07/05/22 History lisinopril 20 mg tablet 20 mg PO DAILY 05/18/20 08/03/22 06/12/22 History lorazepam 1 mg tablet 1 mg PO BID 05/18/20 08/03/22 06/12/22 History amlodipine 10 mg tablet 1 tab PO DAILY 06/12/22 08/03/22 08/03/22 History duloxetine 30 mg capsule,delayed 1 cap PO BID 06/12/22 08/03/22 08/03/22 History release sertraline 50 mg tablet 1 tab PO BID 06/12/22 08/03/22 06/12/22 History vancomycin 125 mg capsule 1 cap PO Q6H 08/03/22 08/03/22 Unknown History Exam Exam Date and Time: August 03, 2022 1250 Height,Weight and Vital Signs: Height 5 ft 4 in Weight 47.627 kg Last Vital Signs Temp 97 F 08/03/22 12:35 Pulse 83 08/03/22 12:35 Resp 18 08/03/22 12:35 BP 132/99 H 08/03/22 12:35 Pulse Ox 99 08/03/22 12:35 O2 Del Method 08/03/22 12:35 Airway Mallampati Class: II TM Dist: >3cm Neck ROM: Full Heart: rrr Lungs: cta Assessment and Plan Assessment Anesthesia Assessment: Anesthesia Plan Discussed and Chart Reviewed Final Anesthetic Review Family History of Problems with Anesthesia: No History of Problems with Anesthesia: No NPO: Yes ASA Class: III Final Preanesthetic Review: No Changes in Pt Med Stat, Meds/Allgs Chart Reviewed, Consent Obtained/Reviewed and Anes Risks/Benef Reviewed Patient Risk: Low Procedure Risk: Low Anesthetic Plan Anesthetic Plan: MAC: Disposition: Standard PACU
--- NOTE | 2022-08-03 13:06 | MHC.SHP ---
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 Allergies: Allergies Allergy/AdvReac Type Severity Reaction Status Date / Time Sulfa (Sulfonamide Allergy Intermediate ITCHING/DARSHAN Verified 08/03/22 07:07 Antibiotics) H [SULFA (SULFONAMIDE ANTIBIOTICS)] sulfadiazine Allergy Unknown Unknown Verified 06/02/21 10:57 tree nut [TREE NUT] AdvReac Intermediate GI UPSET Verified 08/03/22 07:06 acetaminophen [From PERCOCET] AdvReac Unknown NAUSEA Verified 08/03/22 07:06 meperidine [From Demerol] AdvReac Unknown Nausea Verified 08/02/22 14:16 oxycodone [Percocet] AdvReac Unknown Nausea Verified 08/02/22 14:16 Flonase Allergy Unknown Unknown Uncoded 06/02/21 10:57 ZyrTEC Allergy Unknown Unknown Uncoded 06/02/21 10:57 Plan I have reviewed the history and physical and performed a pertinent physical examination on my patient. No changes have occurred unless specified. Time Spent With Patient Time: Total time managing care of this patient today ____ minutes.
[2022-08-03 13:32] VITALS: BP 138/70; PULSE 16; RESP 16; TEMP 36.3; O2SAT 98
--- NOTE | 2022-08-03 13:32 | PM.OP ---
Brief Operative Note Date of Service: 08/03/22 Pre-op diagnosis: barretts Post-op diagnosis: same Surgeon: Jagjit Crawford Anesthesia: MAC Was an Packing And Final Assembly Supervisor used for this Procedure?: No Estimated blood loss (mL): 2 Pathology: other Condition: stable Disposition: PACU
[2022-08-03 13:47] VITALS: BP 156/66; PULSE 16; RESP 16; TEMP 36.9; O2SAT 100
--- NOTE | 2022-08-03 23:53 | OP_ITS ---
SURGEON: Jagjit Crawford MD INDICATIONS: Oliveira esophagus and worsening GERD symptoms. PREOPERATIVE DIAGNOSIS: POSTOPERATIVE DIAGNOSIS: PROCEDURE PERFORMED: Upper endoscopy with biopsy. ESTIMATED BLOOD LOSS: COMPLICATIONS: ANESTHESIA: Monitored anesthesia care. ASSISTANTS: SPECIMENS: DESCRIPTION OF PROCEDURE: The history and physical was performed. The risks and benefits of the procedure were explained to the patient. Informed consent was obtained. The patient was placed in the left lateral decubitus position. The Olympus video gastroscope was introduced into the esophagus, stomach, and duodenum. Examination was performed and the scope was removed. She tolerated the procedure well and was taken to recovery in stable condition. FINDINGS: Esophagus: There were linear erosions just above the EJ junction extending for proximally 2 cm consistent with erosive esophagitis. There was a 1 cm area of patchy Oliveira esophagus with no raised lesions or ulcerations. Biopsies were obtained. Stomach: There is large hiatal hernia, which had been previously identified and imaged. Enteral biopsies were obtained to evaluate for H pylori. Duodenum: Bulb and second portion was normal. IMPRESSION: 1. Erosive esophagitis. 2. Oliveira esophagus. RECOMMENDATION: 1. Follow up the biopsy results. 2. Increase acid suppressive therapy. MD BALAJI Lloyd/JOSIE / [id number] MTDD
== END 2022-08-03 14:15 | disposition home or self-care (01) ==
PROVIDERS: PCP Family Medicine; Visit Provider Internal Medicine Gastroenterology
PROC: 0DJ08ZZ Inspection of Upper Intestinal Tract, Via Natural or Artificial Opening Endoscopic (ICD-10-PCS; CPT 43235; principal; 2022-08-03 13:40)
DX: K22.70 Barrett's esophagus without dysplasia (principal); K20.80 Other esophagitis without bleeding; K21.9 Gastro-esophageal reflux disease without esophagitis; K44.9 Diaphragmatic hernia without obstruction or gangrene; I10 Essential (primary) hypertension; I73.9 Peripheral vascular disease, unspecified; J44.9 Chronic obstructive pulmonary disease, unspecified; Z79.899 Other long term (current) drug therapy; Z88.1 Allergy status to other antibiotic agents; Z88.2 Allergy status to sulfonamides; Z88.8 Allergy status to other drugs, medicaments and biological substances; F17.210 Nicotine dependence, cigarettes, uncomplicated
CPT/HCPCS: 43239; 88305; 88342

== ENCOUNTER 2023-03-13 14:19 | Outpatient (AMB) | payer MEDICARE, SELFPAY ==
--- OUTSIDE RECORDS SUMMARY | 2023-03-13 14:21 | XMS_ITS | Continuity of Care Document ---
Author Name Unknown Organization [facility] Address [address] [place] [address] [address] [place] [address]- Care Team Providers Care High Lift Mule Operator Name Role Phone Mike HEATH, Kevyn Gaytan Primary Care Physician Encounter [facility] [place] Date(s): 01/16/23 - 02/15/[address] [place] [address]- Allergies, Adverse Reactions, Alerts Substance Reaction Severity Status sulfa drugs Active Flonase Active Percocet 5/325 Active ZyrTEC rash Active Demerol HCl Active Immunizations Given and Recorded Vaccine Date Status Refusal Reason pneumococcal 23-valent vaccine 1 07/06/22 Given pneumococcal 23-valent vaccine 2 07/03/00 Recorded [id number] 12y+ bivalent booster vax 3 04/06/22 Recorded influenza virus vaccine, inactivated 4 04/06/22 Re corded influenza virus vaccine, inactivated 03/28/21 Jerry rded influenza virus vaccine, inactivated 04/10/19 Jerry rded SARS-CoV-2 (COVID-19) mRNA BNT-162b2 vac 07/14/21 Recorded SARS-CoV-2 (COVID-19) mRNA BNT-162b2 vac 11/04/20 Recorded SARS-CoV-2 (COVID-19) mRNA BNT-162b2 vac 10/14/20 Recorded tetanus-diphtheria toxoids (Td) 5 12/10/20 Given Influenza Virus Vaccine (oldterm) 03/02/20 Recorde d pneumococcal 13-valent vaccine 06/07/16 Recorded tetanus/diphtheria/pertussis, acel(Tdap) 6 07/03/08 Recorded 1Result Comment: [id number] 2Location History: Dr. Lao 3Result Comment: [place] 4Result Comment: [place] 5Result Comment: [facility] [id number] 6Location History: Dr. Lao Medications acetaminophen 500 mg oral tablet 1 tablet = 500 mg, By Mouth, 2 times a day, 0 Refills, Maintenance, 02/01/23 16:02:00 EDT, Partial fill upon patient request if the prescription is for a schedule II opioid drug. Start Date: 02/01/23 Status: Ordered amLODIPine 10 mg oral tablet 10 mg, 1, tablet, By Mouth, Daily, Increase in dose, # 90 tablet, Refills 3, Tot. Refills 3, Maintenance, 04/27/22 13:48:00 EDT, Route to Pharmacy Electronically, [id number], Partialfill upon patient request if the prescription is fo... Start Date: 04/27/22 Status: Ordered dicyclomine 20 mg oral tablet 1 tablet = 20 mg, By Mouth, 4 times a day, PRN spasm, Increase in dose, # 56 tablet, 5 Refills, Maintenance, 10/19/22 13:40:00 EDT, Tablet, [facility] #[id number], Partial fill upon patient request if the prescription is for a schedule II opioid... Start Date: 10/19/22 Stop Date: 01/11/23 Status: Ordered duloxetine 30 mg oral enteric coated capsule 1 capsule = 30 mg, By Mouth, 2 times a day, Increase in dose, # 180 capsule, 3 Refills, Maintenance, 04/27/22 13:42:00 EDT, [facility] #[id number], Partial fill upon patient request if the prescription is for a schedule II opioid drug., 170, cm,... Start Date: 04/27/22 Status: Ordered Esomeprazole 40 mg, Daily, Refills 0, Maintenance, 07/06/22 13:18:00 EST, Partial fill upon patient request if the prescription is for a schedule II opioid drug. Start Date: 07/06/22 Status: Ordered Ibuprofen 800 mg, 1 tab 2 times a day, Refills 0, Maintenance, 12/30/22 13:06:00 EDT, Partial fill upon patient request if the prescription is for a schedule II opioid drug. Start Date: 12/30/22 Status: Ordered lisinopril 20 mg oral tablet 20 mg, 1, tablet, By Mouth, Daily, for 90 days, # 90 tablet, Refills 3, Tot. Refills 3, Physician Stop 01/21/24 12:33:00 EDT, 01/26/23 12:33:00 EDT, Route to Pharmacy Electronically, [facility] #[id number], 165, cm, 01/11/23 11:25:00 EDT, Height Start Date: 01/26/23 Stop Date: 01/21/24 Status: Ordered LORazepam 1 mg oral tablet 1 tablet = 1 mg, By Mouth, 2 times a day, PRN as needed for anxiety, # 60 tablet, 2 Refills, Maintenance, 11/06/22 6:34:00 EDT, Tablet, [facility] #[id number], 170, cm, 10/19/22 13:31:00 EDT, Height Start Date: 11/06/22 Status: Ordered sertraline 50 mg oral tablet 1 tablet, By Mouth, 2 times a day, # 180 tablet, 3 Refills, Maintenance, 09/22/22 5:18:00 EDT, [facility]), 170, cm, 09/07/22 11:31:00 EST, Height Start Date: 09/22/22 Status: Ordered Problem List Condition Confirmation Course Effective Dates Status H ealth Status Informant Allergic rhinitis Confirmed Active Oliveira's esophagus Confirmed Active Chronic obstructive pulmonary disease Confirmed Active Osteoarthritis of both hands Confirmed Active Essential hypertension Confirmed Active Right femoral hernia Confirmed Active Left-sided abdominal wall hernia Confirmed Active IBS (irritable bowel syndrome) with diarrhea Confirmed Active Depression, major, single episode, in partial remission Confirmed Active Neuropathy of left lower extremity Confirmed Active Osteoporosis Confirmed Active PVD (peripheral vascular disease) with claudication 1 Confirmed Active Underweight Confirmed Active 21025 CTA: IMPRESSION: 1. 70% stenosis of the distal right common femoral artery with soft plaque extending and mildly narrowing the origin of the profunda. 2. Exophytic calcified plaque at the origin of the left common iliac artery causing at least 75% stenosis with a second site of 75% stenosis approximately 2 cm distally. 3. 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 4. There is limited evaluation of the arteries in the feet due to poor opacification. Social History Social History Type Response Smoking Status 10 or more cigarette s (1/2 pack or more)/day in last 30 days; Other: Currently smoking about 8-10 cigarettes daily.; entered on: 08/27/19 Sex Patient Care team information Care Team Personnel Name: Kevyn Mckeon MD Position: [facility] Physician - Primary Care Member Role: PCP Address: Address: [address] [place] [id number]- Name: Gemini Alfaro Position: [facility] Computational Sciences Professor Member Role: Test Boring Crew Chief Care Team Related Persons Name: CATY LOCKWOOD Name: MARYCRUZ MANN Name: MARYCRUZ TORRES Name: NO, NONE Name: DAVID KRAFT Address: home [address] [place] [id number]
--- OUTSIDE RECORDS SUMMARY | 2023-03-13 14:21 | XMS_ITS | Continuity of Care Document ---
Author Name Unknown Organization [facility] Address [address] [place] [address]- Care Team Providers Care Agricultural Produce Sorter Name Role Phone Mike HEATH, Kevyn Gaytan Primary Care Physician Encounter 11/29/19 - 12/23/19 [facility] [address] [place] [id number]- [facility] Discharge Disposition: GOALS MET Allergies, Adverse Reactions, Alerts Substance Reaction Severity Status sulfa drugs Active Flonase Active Demerol HCl Active Percocet 5/325 Active ZyrTEC rash Active Immunizations Given and Recorded Vaccine Date Status Refusal Reason tetanus/diphtheria/pertussis, acel(Tdap) 1 07/03/08 Recorded pneumococcal 23-valent vaccine 2 07/03/00 Recorded 1Location History: Dr. Lao 2Location History: Dr. Lao Medications amLODIPine 2.5 mg oral tablet 1 tablet, By Mouth, Daily, # 90 Unknown, 0 Refills, Maintenance, 07/23/19 12:38:00 EST, [facility], 170, cm, 05/08/19 10:06:00 EST, Height Start Date: 07/23/19 Status: Ordered amoxicillin 500 mg oral capsule See Instructions, 4 capsule By Mouth Once given 1 hour prior to the procedure, # 4 capsule, 0 Refills, Soft Stop, 11/28/19 14:12:00 EDT, [id number], 170, cm, 11/28/19 13:51:00 EDT, Height Start Date: 11/28/19 Status: Ordered dicyclomine 10 mg oral capsule 2 capsule = 20 mg, By Mouth, 3 times a day, # 540 capsule, 1 Refills, Maintenance, 07/19/19 13:00:00 EST, [facility] #[id number], 170, cm, 05/08/19 10:06:00 EST, Height Start Date: 07/19/19 Status: Ordered ibuprofen 800 mg oral tablet 800 mg, 1, tablet, By Mouth, 2 times a day, # 270 tablet, Refills 0, Maintenance, 08/27/19 14:05:00EST Start Date: 08/27/19 Status: Ordered lisinopril 40 mg oral tablet 0.5 tablet = 20 mg, By Mouth, Daily, # 15 tablet, 0 Refills, Maintenance, 05/08/19 11:02:58 EST Start Date: 05/08/19 Status: Ordered LORazepam 1 mg oral tablet 1 tablet = 1 mg, By Mouth, 2 times a day, PRN as needed for anxiety, Fill after 05/21/19, # 180 tablet, 3 Refills, Maintenance, 11/28/19 14:11:00 EDT, Tablet, [facility], 170, cm, 11/28/19 13:51:00 EDT, Height Start Date: 11/28/19 Status: Ordered pantoprazole 40 mg oral delayed release tablet 1 tablet = 40 mg, By Mouth, 2 times a day, # 180 tablet, 3 Refills, Maintenance, 04/08/19 14:44:34 EDT Start Date: 04/08/19 Status: Ordered Redi-Cat-(2) two pre-mixed 450 ml bottles Redi-Cat-(2) two pre-mixed 450 ml bottles, See Instructions, # 2 bottle, Refills 0, Tot. Refills 0,Maintenance, Follow instructions included per PCP office., 04/16/19 15:37:58 EDT, 2 (450 ml) bottles pre-mixed. Please call pt for nut picker., Compound Start Date: 04/16/19 Status: Ordered Redi-Cat-(2) two pre-mixed 450 ml bottles Redi-Cat-(2) two pre-mixed 450 ml bottles, See Instructions, # 2 bottle, Refills 0, Tot. Refills 0,Maintenance, Follow instructions included per PCP office., 04/16/19 15:40:53 EDT, 2 (450 ml) bottles pre-mixed. Please call pt for nut picker., Compound Start Date: 04/16/19 Status: Ordered sertraline 25 mg oral tablet 1 tablet = 25 mg, By Mouth, 2 times a day, # 180 tablet, 3 Refills, Maintenance, 12/24/18 13:14:02 EDT Start Date: 12/24/18 Status: Ordered Vitamin D3 1000 intl units oral capsule 1 capsule = 1,000 International_Units, By Mouth, 2 times a day, # 60 capsule, 0 Refills, Maintenance, 07/22/18 17:31:01 EST Start Date: 07/22/18 Status: Ordered Problem List Condition Effective Dates Status Health Status Inform ant Oliveira's esophagus(Confirmed) Active Claudication(Confirmed) Active Osteoarthritis of both hands(Confirmed) Active Essential hypertension(Confirmed) Active IBS (irritable bowel syndrome)(Confirmed) Active Major depression(Confirmed) Active Osteoporosis(Confirmed) Active Social History Social History Type Response Smoking Status 10 or more cigarette s (1/2 pack or more)/day in last 30 days; Other: Currently smoking about 8-10 cigarettes daily.; entered on: 08/27/19 Sex
--- OUTSIDE RECORDS SUMMARY | 2023-03-13 14:21 | XMS_ITS | Continuity of Care Document ---
Author Name Unknown Organization [facility] [place] Address [address] [place] [address]- Care Team Providers Care Watch Parts Inspector Name Role Phone Mike HEATH, Kevyn Gaytan Primary Care Physician [place] [facility] 11/12[place]21 - 12/12/21 [facility] [place] Adult [address] [place] [address]- Attending Physician: AdmNessa flores Admitting Physician: AdmtrNessa Referring Physician: Admtr, Ar8 Allergies, Adverse Reactions, Alerts Substance Reaction Severity Status sulfa drugs Active Flonase Active ZyrTEC rash Active Demerol HCl Active Percocet 5/ Active Immunizations Given and Recorded Vaccine Date Status Refusal Reason SARS-CoV-2 (COVID-19) mRNA BNT-162b2 vac 07/14/21 Recorded SARS-CoV-2 (COVID-19) mRNA BNT-162b2 vac 11/04/20 Recorded SARS-CoV-2 (COVID-19) mRNA BNT-162b2 vac 10/14/20 Recorded influenza virus vaccine, inactivated 03/28/21 Jerry rded influenza virus vaccine, inactivated 04/10/19 Jerry rded tetanus-diphtheria toxoids (Td) 1 12/10/20 Given Influenza Virus Vaccine (oldterm) 03/02/20 Recorde d pneumococcal 13-valent vaccine 06/07/16 Recorded tetanus/diphtheria/pertussis, acel(Tdap) 2 07/03/08 Recorded pneumococcal 23-valent vaccine 3 07/03/00 Recorded 1Result Comment: [facility] [id number] 2Location History: Dr. Lao 3Location History: Dr. Lao Medications 4 wheeled walked with seat and brake 4 wheeled walked with seat and brake, See Instructions, # 1 each, Refills 0, Tot. Refills 0, Maintenance, DX:M81.0 4 wheeled walker with seat and brakes, [employer] lifetime 99MOS Please deliver to patientshome address, 01/07/21 10:52:00 EDT, Supply Start Date: 01/07/21 Status: Ordered amLODIPine 2.5 mg oral tablet 1 tablet, By Mouth, Daily, # 90 tablet, 1 Refills, Maintenance, 07/12/21 15:48:00 EST, [facility], 170, cm, 05/03/21 13:38:00 EDT, Height Start Date: 07/12/21 Status: Ordered ibuprofen 800 mg oral tablet 800 mg, 1, tablet, By Mouth, 2 times a day, # 270 tablet, Refills 1, Tot. Refills 1, Acute 236:26:00 EDT, 11/15/21 6:26:00 EDT, Route to Pharmacy Electronically, [facility] #[id number], Partial fill upon patient request if the prescription... Start Date: 11/15/21 Stop Date: 11/15/22 Status: Ordered lidocaine 5% topical film 1 patch, Topically, Daily, PRN Pain , Mild, remove after 12 hours, # 13 each, 0 Refills, Maintenance, 09/24/21 11:47:00 EDT, Film, [facility] #[id number], Partial fill upon patient request if the prescription is for a schedule II opioid drug., 1... Start Date: 09/24/21 Status: Ordered lisinopril 20 mg oral tablet See Instructions, TAKE 1 TABLET DAILY, # 90 tablet, Refills 3, Tot. Refills 3, 11/15/21 6:27:00 EDT, Instructions Replace Required Details, Route to Pharmacy Electronically, [facility] #[id number], 170, cm, 10/25/21 16:19:00 EDT, Height Start Date: 11/15/21 Status: Ordered LORazepam 1 mg oral tablet 1 tablet = 1 mg, By Mouth, 2 times a day, PRN as needed for anxiety, # 180 tablet, 1 Refills, Maintenance, 07/15/21 5:43:00 EST, Tablet, [facility], 170, cm, 05/03/21 13:38:00 EDT, Height Start Date: 07/15/21 Status: Ordered pantoprazole 40 mg oral delayed release tablet 1 tablet = 40 mg, By Mouth, Daily, # 30 tablet, 0 Refills, Maintenance, 10/13/21 10:49:00 EDT, EC Tablet Start Date: 10/13/21 Status: Ordered sertraline 50 mg oral tablet 1 tablet = 50 mg, By Mouth, 2 times a day, Increase in dose, # 180 tablet, 3 Refills, Maintenance, 10/13/21 11:02:00 EDT, [facility], Partial fill upon patient request if the prescription is for a schedule II opioid drug., 170, cm, 10/13/21... Start Date: 10/13/21 Status: Ordered Standard lightweight wheel chair with brakes and foot rests Standard lightweight wheel chair with brakes and foot rests, See Instructions, # 1 each, Refills 0,Tot. Refills 0, Maintenance, DX;M81.0 Standard lightweight wheelchair with brakes and foot rests, HIP[facility]O 99MOS send to [facility], 04/12/21 16:40:00 E... Start Date: 04/12/21 Status: Ordered Problem List Condition Effective Dates Status Health Status Inform ant Allergic rhinitis(Confirmed) Active Oliveira's esophagus(Confirmed) Active Osteoarthritis of both hands(Confirmed) Active Essential hypertension(Confirmed) Active IBS (irritable bowel syndrom e) with diarrhea(Confirmed) Active Major depression(Confirmed) Active Osteoporosis(Confirmed) Active PVD (peripheral vascular dis ease) with claudication(Confirmed) 1 Active Underweight(Confirmed) Active 87438 CTA: IMPRESSION: 1. 70% stenosis of the [...]
--- OUTSIDE RECORDS SUMMARY | 2023-03-13 14:21 | XMS_ITS | Continuity of Care Document ---
Author Name Unknown Organization [facility] Address [address] [place] [address]- Care Team Providers Care Gold Miner Blasting Name Role Phone Mike HEATH, Kevyn aGytan Primary Care Physician [phone] [id number] [address] [place] [address]- Encounter Diagnosis Diarrhea(Discharge Diagnosis) - 09/07/22 RUQ abdominal pain(Discharge Diagnosis) - 09/07/22 Right groin mass(Discharge Diagnosis) - 09/07/22 Defined lower border of mass of abdomen(Discharge Diagnosis) - 09/07/22 Attending Physician: Not on Staff, Attending MD Allergies, Adverse Reactions, Alerts Substance Reaction Severity Status sulfa drugs Active Flonase Active Demerol HCl Active Percocet 5/325 Active ZyrTEC rash Active Immunizations Given and Recorded Vaccine Date Status Refusal Reason pneumococcal 23-valent vaccine 1 07/06/22 Given pneumococcal 23-valent vaccine 2 07/03/00 Recorded Influenza Virus Vaccine (oldterm) 3 04/06/22 Recor ded Influenza Virus Vaccine (oldterm) 03/02/20 Recorde d [id number] 12y+ bivalent booster vax 4 04/06/22 Recorded [id number] 12y+ bivalent booster vax 5 04/06/22 Recorded influenza virus vaccine, inactivated 6 04/06/22 Re corded influenza virus vaccine, inactivated 03/28/21 Jerry rded influenza virus vaccine, inactivated 04/10/19 Jerry rded SARS-CoV-2 (COVID-19) mRNA BNT-162b2 vac 07/14/21 Recorded SARS-CoV-2 (COVID-19) mRNA BNT-162b2 vac 11/04/20 Recorded SARS-CoV-2 (COVID-19) mRNA BNT-162b2 vac 10/14/20 Recorded tetanus-diphtheria toxoids (Td) 7 12/10/20 Given pneumococcal 13-valent vaccine 06/07/16 Recorded tetanus/diphtheria/pertussis, acel(Tdap) 8 07/03/08 Recorded 1Result Comment: [id number] 2Location History: Dr. Lao 3Result Comment: [facility] DUPLICATE 4Result Comment: Walnadjas 5Result Comment: DUPLICATE 6Result Comment: ALONDRA 7Result Comment: [facility] [place] [id number] 8Location History: Dr. Lao Medications amLODIPine 10 mg oral tablet 10 mg, 1, tablet, By Mouth, Daily, Increase in dose, # 90 tablet, Refills 3, Tot. Refills 3, Maintenance, 04/27/22 13:48:00 EDT, Route to Pharmacy Electronically, [facility] #[id number], Partialfill upon patient request if the prescription is fo... Start Date: 04/27/22 Status: Ordered duloxetine 30 mg oral enteric coated capsule 1 capsule = 30 mg, By Mouth, 2 times a day, Increase in dose, # 180 capsule, 3 Refills, Maintenance, 04/27/22 13:42:00 EDT, [facility] #[id number], Partial fill upon patient request if the prescription is for a schedule II opioid drug., 170, cm,... Start Date: 04/27/22 Status: Ordered Esomeprazole 40 mg, Daily, Refills 0, Maintenance, 07/06/22 13:18:00 EST, Partial fill upon patient request if the prescription is for a schedule II opioid drug. Start Date: 07/06/22 Status: Ordered ibuprofen 800 mg oral tablet 800 mg, 1, tablet, By Mouth, 2 times a day, # 270 tablet, Refills 1, Tot. Refills 1, Acute 11/16/2313:25:00 EDT, 11/15/22 6:26:00 EDT, Route to Pharmacy Electronically, [facility] #[id number], Partial fill upon patient request if the prescriptio... Start Date: 11/15/22 Stop Date: 11/16/22 Status: Ordered ibuprofen 800 mg oral tablet 800 mg, 1, tablet, By Mouth, 2 times a day, # 270 tablet, Refills 1, Tot. Refills 1, Acute 236:26:00 EDT, 11/15/21 6:26:00 EDT, Route to Pharmacy Electronically, [facility] #[id number], Partial fill upon patient request if the prescription... Start Date: 11/15/21 Stop Date: 11/15/22 Status: Ordered lisinopril 20 mg oral tablet See Instructions, TAKE 1 TABLET DAILY, # 90 tablet, Refills 3, Tot. Refills 3, 11/15/21 6:27:00 EDT, Instructions Replace Required Details, Route to Pharmacy Electronically, [facility] #[id number], 170, cm, 10/25/21 16:19:00 EDT, Height Start Date: 11/15/21 Status: Ordered LORazepam 1 mg oral tablet 1 tablet = 1 mg, By Mouth, 2 times a day, PRN as needed for anxiety, # 60 tablet, 2 Refills, Maintenance, 07/28/22 14:24:00 EST, Tablet, [facility] #[id number], 170, cm, 07/06/22 13:11:00 EST, Height Start Date: 07/28/22 Status: Ordered Magnesium Oxide = 400 mg, By Mouth, 0 Refills, Maintenance, 07/06/22 13:16:00 EST, Partial fill upon patient request if the prescription is for a schedule II opioid drug. Start Date: 07/06/22 Status: Ordered Redi-cat pre-mixed oral prep need 2 450ml bottles Redi-cat pre-mixed oral prep need 2 450ml bottles, See Instructions, # 2 each, Refills 0, Tot. Refills 0, Maintenance, drink 1 bottle 6 hours prior and remaining 90 minutes prior., 09/13/22 15:01:00 EDT, please dispense 2 450mls bottles;, Compound, 17... Start Date: 09/13/22 Status: Ordered sertraline 50 mg oral tablet 1 tablet = 50 mg, By Mouth, 2 times a day, Increase in dose, # 180 tablet, 3 Refills, Maintenance, 10/13/21 11:02:00 EDT, [facility], Partial fill upon patient request if the prescription is for a schedule II opioid drug., 170, cm, 10/13/21... Start Date: 10/13/21 Status: Ordered Problem List Condition Confirmation Course Effective Dates Status H ealth Status Informant Allergic rhinitis Confirmed Active Oliveira's esophagus Confirmed Active Osteoarthritis of both hands Confirmed Active Essential hypertension Confirmed Active IBS (irritable bowel syndrome) with diarrhea Confirmed Active Depression, major, single episode, in partial remission Confirmed Active Neuropathy of left lower extremity Confirmed Active Osteoporosis Confirmed Active PVD (peripheral vascular disease) with claudication 1 Confirmed Active Underweight Confirmed Active 32647 CTA: IMPRESSION: 1. 70% stenosis of the [...] in the feet due to poor opacification. Diagnosis Diagnosis Type Effective Dates Health Status Cl inical Service Informant Diarrhea Discharge Diagnosis 09/07/22 RUQ abdominal pain Discharge Diagnosis 09/07/22 Right groin mass Discharge Diagnosis 09/07/22 Defined lower border of mass of abdomen Discharge Diagnosis 09/07/22 Vital Signs Most recent to oldest [Reference Range]: 1 Height 170 cm (09/07/22 11:31 AM) Weight 46.4 kg (09/07/22 11:31 AM) Oxygen Saturation [94-100 %] 100 % (09/07/22 11:31 AM) Pulse Rate [55-90 bpm] 70 bpm (09/07/22 11:31 AM) Body Mass Index [18.5-24.99 kg/m2] 16.06 kg/m2 *L* (09/07/22 11:31 AM) Blood Pressure [90-138/55-84 mm Hg] 121/ 71mm Hg (09/07/22 11:31 AM) Temperature [96.8-100.4 DegF] 97.2 DegF (09/07/22 11:31 AM) Mode of Delivery (Oxygen) Room air (09/07/22 11:31 AM) Blood pressure sites Arm, left (09/07/22 11:31 AM) Temperature Route Temporal (09/07/22 11:31 AM) Weight Obtained Via Standing scale (09/07/22 11:31 AM) Social History Social History Type Response Smoking Status 10 or more cigarette s (1/2 pack or more)/day in last 30 days; Other: Currently smoking about 8-10 cigarettes daily.; entered on: 08/27/19 Sex Note * Maddi Gill: PERFORM, SIGN, VERIFY Event Display: Patient Education/Instruction Authored Date: [id number] [facility] *BMP So Andrea Adlt Clinical Summary Name ANAND KRAFT Age 72 Years 1950 PCP Kevyn Mckeon MD PCP Visit Date 09/07/2022 11:30:00 Additional Instructions: Scheduled Appointments?? Future Appointments ?*BMP??So??Andrea??Adlt ?[address],??[address] ?Phone:??--?Fax:??-- ?Appt. Date:??10/19/2022?1:20 PM ?Scheduled Provider:??Kevyn Mckeon MD Follow-Up Instructions ?? Diagnosis Right upper quadrant pain; Diarrhea, unspecified Medications: Please continue your medications until treatment is completed or stopped by your provider. Discuss any questions related to medications with your provider. Medications to Continue with No Changes These medications were not printed or sent to your pharmacy Amlodipine (amLODIPine 10 mg oral tablet) 1 tab(s) Oral Daily. Increase in dose. Refills: 3. Next Dose: Duloxetine (duloxetine 30 mg oral enteric coated capsule) 1 capsule Oral twice a day. Increase in dose. Refills: 3. Next Dose: Esomeprazole 40 Milligram Daily. Next Dose: Ibuprofen (ibuprofen 800 mg oral tablet) 1 tab(s) Oral twice a day. Refills: 1. Next Dose: Ibuprofen (ibuprofen 800 mg oral tablet) 1 tab(s) Oral twice a day. Refills: 1. Next Dose: Lisinopril (lisinopril 20 mg oral tablet) TAKE 1 TABLET DAILY. Refills: 3. Next Dose: Lorazepam (LORazepam 1 mg oral tablet) 1 tab(s) Oral twice a day as needed as needed for anxiety. Refills: 2. Next Dose: Magnesium Oxide 400 Milligram Oral. Next Dose: Sertraline (sertraline 50 mg oral tablet) 1 tab(s) Oral twice a day. Increase in dose. Refills: 3. Next Dose: Allergy Info:?? ZyrTEC; Percocet 5/325; Demerol HCl; Flonase; sulfa drugs Medications Given This Visit Future Orders ?Ova and Parasite Exam? Order Date:09/07/22?- Complete on or after?09/07/22 ?CBC w/ Differential? Order Date:09/07/22?- Complete on or after?09/07/22 ?Routine Culture, Stool? Order Date:09/07/22?- Complete on or after?09/07/22 ?Comprehensive Metabolic Panel? Order Date:09/07/22?- Complete on or after?09/07/22 ?Lipase? Order Date:09/07/22?- Complete on or after?09/07/22 ?Chest 2 Views Frontal and Lat? Order Date:09/07/22?- Complete on or after?09/07/22 Vital Signs Height 170 cm Weight 46.4 kg BMI 16.06 kg/m2 Blood Pressure 121 mm Hg/71 mm Hg Temperature 97.2 DegF Pulse Rate 70 bpm Respiratory Rate 02 Sat Mode of Delivery 100 %/Room air You can now view a summary of your hospital visit from the comfort of your home through a free online portal called [employer] is a website that allows you to securely view your medical information including discharge summary, medications and follow-up visits. ??You can alsosend a secure electronic message to your doctor???s office to request appointments, renew medications or just ask a question. You can enroll at [email or web address] or register during your next office visit. Disclaimer:?? The information provided is of a general nature and is intended to be used in conjunction with the recommendations and advice of your health care practitioner. ??Every effort has been made to ensure that the information provided is accurate and complete at the time it is provided to you however, as your needs change, or, as new ??information becomes available, different or additional instructions may be required. If you have questions, please consult with your primary care provider or pharmacist, as appropriate. ??This information is not intended to serve as substitution for assessment and evaluation by a qualified health care provider. If you do not have a primary care provider, you may find a [facility] provider by calling [facility] [employer] at [phone]. For information about the plan of care including goals and instructions for your diagnosis, please see the patient education orders section of this document. Patient Education Materials?? The content of this educational material or handout may have been modified, supplemented, or adapted from its original content and format to support your individualized medical care. Patient Care team information Care Team Personnel Name: Kevyn Mckeon MD Position: [facility] Primary Care Physician Member Role: PCP Address: Address: [address] [place] [id number]- Care Team Related Persons Name: MARYCRUZ MANN Name: NO, NONE Name: DAVID KRAFT Address: home [address] [place] [address] [place] [id number]
--- OUTSIDE RECORDS SUMMARY | 2023-03-13 14:21 | XMS_ITS | Continuity of Care Document ---
Author Name Unknown Organization [facility] Surgical As [facility] Address [address] [place] [address] Dr [address] [place] [address]- Care Team Providers Care Performance Specialist Name Role Phone Kevyn Mckeon MD Primary Care Physician Encounter [facility] [place] [id number] Date(s): 01/11/23 - 01/18/[address] [place] [address]- Attending Physician: Gavino Dunlap MD Referring Physician: Kevyn Mckeon MD Allergies, Adverse Reactions, Alerts Substance Reaction Severity Status sulfa drugs Active Flonase Active ZyrTEC rash Active Demerol HCl Active Percocet 5/325 Active Immunizations Given and Recorded Vaccine Date Status Refusal Reason pneumococcal 23-valent vaccine 1 07/06/22 Given pneumococcal 23-valent vaccine 2 07/03/00 Recorded Influenza Virus Vaccine (oldterm) 3 04/06/22 Recor ded Influenza Virus Vaccine (oldterm) 03/02/20 Recorde d [id number] 12y+ bivalent booster vax 4 04/06/22 Recorded [id number] 12y+ bivalent booster vax 5 04/06/22 Recorded influenza virus vaccine, inactivated 6 04/06/22 Re corded influenza virus vaccine, inactivated 03/28/21 Jerry rded influenza virus vaccine, inactivated 04/10/19 Jerry rded SARS-CoV-2 (COVID-19) mRNA BNT-162b2 vac 07/14/21 Recorded SARS-CoV-2 (COVID-19) mRNA BNT-162b2 vac 11/04/20 Recorded SARS-CoV-2 (COVID-19) mRNA BNT-162b2 vac 10/14/20 Recorded tetanus-diphtheria toxoids (Td) 7 6/10/21 Given pneumococcal 13-valent vaccine 06/07/16 Recorded tetanus/diphtheria/pertussis, acel(Tdap) 8 07/03/08 Recorded 1Result Comment: [id number] 2Location History: Dr. Lao 3Result Comment: Nida DUPLICATE 4Result Comment: Nida 5Result Comment: DUPLICATE 6Result Comment: NIDA 7Result Comment: [facility] [id number] 8Location History: Dr. Lao Medications amLODIPine 10 mg oral tablet 10 mg, 1, tablet, By Mouth, Daily, Increase in dose, # 90 tablet, Refills 3, Tot. Refills 3, Maintenance, 04/27/22 13:48:00 EDT, Route to Pharmacy Electronically, [facility] #[id number], Partialfill upon patient request if the prescription is fo... Start Date: 04/27/22 Status: Ordered dicyclomine 20 mg oral tablet 1 tablet = 20 mg, By Mouth, 4 times a day, PRN spasm, Increase in dose, # 56 tablet, 5 Refills, Maintenance, 10/19/22 13:40:00 EDT, Tablet, [facility] #[id number], Partial fill upon patient request if the prescription is for a schedule II opioid... Start Date: 10/19/22 Stop Date: 01/11/23 Status: Ordered duloxetine 30 mg oral enteric coated capsule 1 capsule = 30 mg, By Mouth, 2 times a day, Increase in dose, # 180 capsule, 3 Refills, Maintenance, 04/27/22 13:42:00 EDT, [facility] #[id number], Partial fill upon patient request if the [...] Replace Required Details, Route to Pharmacy Electronically, [facility] #[id number], 170, cm, 10/25/21 16:19:00 EDT, Height Start Date: 11/15/21 Status: Ordered LORazepam 1 mg oral tablet 1 tablet = 1 mg, By Mouth, 2 times a day, PRN as needed for anxiety, # 60 tablet, 2 Refills, Maintenance, 11/06/22 6:34:00 EDT, Tablet, [facility] #[id number], 170, cm, 10/19/22 13:31:00 EDT, Height Start Date: 11/06/22 Status: Ordered LORazepam 1 mg oral tablet 1 tablet = 1 mg, By Mouth, 3 times a day, 0 Refills, Maintenance, 10/19/22 11:20:00 EDT, Partial fill upon patient request if the prescription is for a schedule II opioid drug. Start Date: 10/19/22 Status: Ordered [facility] Rx Refills 0, Maintenance, probiotic, 10/19/22 13:25:00 EDT, Supply Start Date: 10/19/22 Status: Ordered sertraline 50 mg oral tablet 1 tablet, By Mouth, 2 times a day, # 180 tablet, 3 Refills, Maintenance, 09/22/22 5:18:00 EDT, [facility]), 170, cm, 09/07/22 11:31:00 EST, [...] claudication 1 Confirmed Active Underweight Confirmed Active 36712 CTA: IMPRESSION: 1. 70% stenosis of the [...] in the feet due to poor opacification. Vital Signs Most recent to oldest [Reference Range]: 1 Height 165 cm (01/11/23 11:25 AM) Weight 45.5 kg (01/11/23: AM) Pulse Rate [55-90 bpm] 70 bpm (01/11/23 11:25 AM) Body Mass Index [18.5-24.99 kg/m2] 16.71 kg/m2 *L* (01/11/23 11: AM) Blood Pressure [90-138/55-84 mm Hg] 120/ 74mm Hg (01/11/23 11: AM) Respiratory Rate [16-30 br/min] 16 br/mi n (01/11/23:25 AM) Temperature [96.8-100.4 DegF] 97.5 DegF (01/11/23 11:25 AM) Blood pressure sites Arm, right (01/11/23 11:25 AM) Temperature Route Temporal (01/11/23 11:25 AM) Social History Social History Type Response Smoking Status 10 or more cigarette s (1/2 pack or more)/day in last 30 days; Other: Currently smoking about 8-10 cigarettes daily.; entered on: 08/27/19 Sex Patient Care team information Care Team Personnel Name: Kevyn Mckeon MD Position: [facility] Physician - Primary Care Member Role: PCP Address: Address: [address] [place] [address]- Care Team Related Persons Name: CATY LOCKWOOD Name: MARYCRUZ MANN Name: MARYCRUZ TORRES Name: NO, NONE Name: DAVID KRAFT Address: home [address] [place] [address] [place] [id number]
--- OUTSIDE RECORDS SUMMARY | 2023-03-13 14:21 | XMS_ITS | Continuity of Care Document ---
Author Name Unknown Organization [facility] lt Address [address] [place] [address]- Care Team Providers Care Erp Project Manager Name Role Phone Mike HEATH, Kevyn Gaytan Primary Care Physician [phone] [place] [facility] [place]28[place]20 - 01/27/21 [facility] Adult [address] [place] [address]- Allergies, Adverse Reactions, Alerts Substance Reaction Severity Status sulfa drugs Active Flonase Active Demerol HCl Active Percocet 5/325 Active ZyrTEC rash Active Immunizations Given and Recorded Vaccine Date Status Refusal Reason tetanus-diphtheria toxoids (Td) 1 12/10/20 Given SARS-CoV-2 (COVID-19) mRNA BNT-162b2 vac 11/04/20 Recorded SARS-CoV-2 (COVID-19) mRNA BNT-162b2 vac 10/14/20 Recorded Influenza Virus Vaccine (oldterm) 03/02/20 Recorde d influenza virus vaccine, inactivated 04/10/19 Jerry rded pneumococcal 13-valent vaccine 06/07/16 Recorded tetanus/diphtheria/pertussis, acel(Tdap) 2 07/03/08 Recorded pneumococcal 23-valent vaccine 3 07/03/00 Recorded 1Result Comment: [facility] [id number] 2Location History: Dr. Lao 3Location History: Dr. [...] tablet, By Mouth, Daily, # 90 Unknown, 3 Refills, Maintenance, 03/02/20 14:31:00 EDT, [facility], 170, cm, 03/02/20 13:50:00 EDT, Height Start Date: 03/02/20 Status: Ordered azelastine 137 mcg/inh (0.1%) nasal spray 2 sprays, Nares, Both, Daily, PRN Other Allergies, # 30 mL, 2 Refills, Maintenance, 11/23/20 16:34:00 EDT, [place], [facility] #[id number], Partial fill upon patient request if the prescription is for a schedule II opioid drug., 2 sprays Nares, B... Start Date: 11/23/20 Status: Ordered dicyclomine 10 mg oral capsule 2 capsule = 20 mg, By Mouth, 3 times a day, # 180 capsule, 5 Refills, Maintenance, 07/06/20 17:01:00 EST, [facility] #[id number], 170, cm, 05/11/20 13:39:00 EST, Height Start Date: 07/06/20 Status: Ordered ibuprofen 800 mg oral tablet 800 mg, 1, tablet, By Mouth, 2 times a day, # 270 tablet, Refills 1, Tot. Refills 1, Acute 05/19/2117:45:00 EST, 11/16/20 17:32:00 EDT, Route to Pharmacy Electronically, [facility] #[id number],Partial fill upon patient request if the prescripti... Start Date: 11/16/20 Stop Date: 05/19/21 Status: Ordered lidocaine 5% topical film 1 patch, Topically, Daily, PRN Pain , Mild, remove after 12 hours, # 5 patch, 0 Refills, Maintenance, 01/18/21 13:10:00 EDT, [place], [facility] #[id number], Partial fill upon patient request if the prescription is for a schedule II opioid drug., 1... Start Date: 01/18/21 Stop Date: 01/23/21 Status: Ordered lisinopril 20 mg oral tablet See Instructions, TAKE 1 TABLET DAILY, # 90 Unknown, Refills 0, Maintenance, Instructions Replace Required Details, Route to Pharmacy Electronically, [facility], 170, cm, 12/10/20 13:41:00 EDT, Height Start Date: 01/26/21 Status: Ordered LORazepam 1 mg oral tablet 1 tablet = 1 mg, By Mouth, 2 times a day, PRN as needed for anxiety, # 180 tablet, 3 Refills, Maintenance, 11/16/20 16:37:00 EDT, Tablet, [facility], 170, cm, 09/09/20 13:48:00 EST, Height Start Date: 11/16/20 Status: Ordered pantoprazole 40 mg oral delayed release tablet 1 tablet = 40 mg, By Mouth, 2 times a day, # 180 tablet, 1 Refills, Maintenance, 08/18/20 16:22:00 EST, 170, cm, 05/11/20 13:39:00 EST, Height Start Date: 08/18/20 Status: Ordered Redi-Cat-(2) two pre-mixed 450 ml bottles Redi-Cat-(2) two pre-mixed 450 ml bottles, See Instructions, # 2 bottle, Refills 0, Tot. Refills 0,Maintenance, Follow instructions included per PCP office., 04/16/19 15:37:58 EDT, 2 (450 ml) bottles pre-mixed. Please call pt for turkey picker., Compound Start Date: 04/16/19 Status: Ordered Redi-Cat-(2) two pre-mixed 450 ml bottles Redi-Cat-(2) two pre-mixed 450 ml bottles, See Instructions, # 2 bottle, Refills 0, Tot. Refills 0,Maintenance, Follow instructions included per PCP office., 04/16/19 15:40:53 EDT, 2 (450 ml) bottles pre-mixed. Please call pt for turkey picker., Compound Start Date: 04/16/19 Status: Ordered sertraline 25 mg oral tablet 1 tablet = 25 mg, By Mouth, 2 times a day, # 180 tablet, 1 Refills, Maintenance, 12/11/20 14:10:00 EDT, [facility], 170, cm, 12/10/20 13:41:00 EDT, Height Start Date: 12/11/20 Status: Ordered Vitamin D3 1000 intl units oral capsule 1 capsule = 1,000 International_Units, By Mouth, 2 times a day, # 60 capsule, 0 Refills, Maintenance, 07/22/18 17:31:01 EST Start Date: 07/22/18 Status: Ordered Problem List Condition Effective Dates Status Health Status Inform ant Allergic rhinitis(Confirmed) Active Oliveira's esophagus(Confirmed) Active Claudication(Confirmed) Active Osteoarthritis of both hands(Confirmed) Active Essential hypertension(Confirmed) Active IBS (irritable bowel syndrom e) with diarrhea(Confirmed) Active Major depression(Confirmed) Active Osteoporosis(Confirmed) Active Social History Social History Type Response Smoking Status 10 or more cigarette s (1/2 pack or more)/day in last 30 days; Other: Currently smoking about 8-10 cigarettes daily.; entered on: 08/27/19 Sex
--- OUTSIDE RECORDS SUMMARY | 2023-03-13 14:21 | XMS_ITS | Continuity of Care Document ---
Author Name Unknown Organization [facility] Address [address] [place] [address] ve [address] [place] [address]- Care Team Providers Care Park Manager Name Role Phone Mike HEATH, Kevyn Gaytan Primary Care Physician [place] [facility] [id number] Date(s): 10/06/22 - 01/04/[address] [place] [address]- Attending Physician: Delano Alexander Referring Physician: [facility] Allergies, Adverse Reactions, Alerts Substance Reaction Severity Status sulfa drugs Active Flonase Active Demerol HCl Active Percocet 5/325 Active ZyrTEC rash Active Immunizations Given and Recorded Vaccine Date Status Refusal Reason pneumococcal 23-valent vaccine 1 07/06/22 Given pneumococcal 23-valent vaccine 2 07/03/00 Recorded Influenza Virus Vaccine (oldterm) 3 04/06/22 Recor ded Influenza Virus Vaccine (oldterm) 03/02/20 Recorde d [id number] 12y+ bivalent booster vax 4 04/06/22 Recorded [id number] 12y+ bivalent booster vax 5 04/06/22 Recorded [...] tetanus/diphtheria/pertussis, acel(Tdap) 8 07/03/08 Recorded 1Result Comment: [id number] 2Location History: Dr. Lao 3Result Comment: Nida DUPLICATE 4Result Comment: Nida 5Result Comment: DUPLICATE 6Result Comment: NIDA 7Result Comment: [facility] [id number] 8Location History: Dr. Lao Medications amLODIPine 10 mg oral tablet 10 mg, 1, tablet, By Mouth, Daily, Increase in dose, # 90 tablet, Refills 3, Tot. Refills 3, Maintenance, 04/27/22 13:48:00 EDT, Route to Pharmacy Electronically, [facility] #[id number], Partialfill upon patient request if the prescription is fo... Start Date: 04/27/22 Status: Ordered dicyclomine 20 mg oral tablet 1 tablet = 20 mg, By Mouth, 4 times a day, PRN spasm, Increase in dose, # 56 tablet, 5 Refills, Maintenance, 10/19/22 13:40:00 EDT, Tablet, [facility] #[id number], Partial fill upon patient request if the prescription is for a schedule II opioid... Start Date: 10/19/22 Stop Date: 01/11/23 Status: Ordered duloxetine 30 mg oral enteric coated capsule 1 capsule = 30 mg, By Mouth, 2 times a day, Increase in dose, # 180 capsule, 3 Refills, Maintenance, 04/27/22 13:42:00 EDT, [facility] #[id number], Partial fill upon patient request if the [...] Replace Required Details, Route to Pharmacy Electronically, [facility] #[id number], 170, cm, 10/25/21 16:19:00 EDT, Height Start Date: 11/15/21 Status: Ordered LORazepam 1 mg oral tablet 1 tablet = 1 mg, By Mouth, 2 times a day, PRN as needed for anxiety, # 60 tablet, 2 Refills, Maintenance, 11/06/22 6:34:00 EDT, Tablet, [facility] #[id number], 170, cm, 10/19/22 13:31:00 EDT, Height Start Date: 11/06/22 Status: Ordered LORazepam 1 mg oral tablet 1 tablet = 1 mg, By Mouth, 3 times a day, 0 Refills, Maintenance, 10/19/22 11:20:00 EDT, Partial fill upon patient request if the prescription is for a schedule II opioid drug. Start Date: 10/19/22 Status: Ordered [facility] Refills 0, Maintenance, probiotic, 10/19/22 13:25:00 EDT, Supply Start Date: 10/19/22 Status: Ordered Redi-cat pre-mixed oral prep need [...] Maintenance, 09/22/22 5:18:00 EDT, [facility]), 170, cm, 09/07/22 11:31:00 EST, [...] claudication 1 Confirmed Active Underweight Confirmed Active 09027 CTA: IMPRESSION: 1. 70% stenosis of the [...] Care team information Care Team Personnel Name: Mike HEATH, Kevyn Gaytan Position: [facility] Physician - Primary Care Member Role: PCP Address: Address: [address] [place] [address]- Care Team Related Persons Name: CATY LOCKWOOD Name: MARYCRUZ MANN Name: MARYCRUZ TORRES Name: NO, NONE Name: DAVID KRAFT Address: home [address] [facility] [address] [place] [id number]
--- OUTSIDE RECORDS SUMMARY | 2023-03-13 14:21 | XMS_ITS | Continuity of Care Document ---
Author Name Unknown Organization [facility] lt Address [address] [place] [address]- Care Team Providers Care Creative Consultant Name Role Phone Mike HEATH, Kevyn Gaytan Primary Care Physician [phone] Encounter [facility] Date(s): 07/25/22 - 08/24/22 [facility] Adult [address] [place] [address]- Allergies, Adverse Reactions, Alerts Substance Reaction Severity Status sulfa drugs Active Flonase Active Demerol HCl Active Percocet 5/325 Active ZyrTEC rash Active Immunizations Given and Recorded Vaccine Date Status Refusal Reason pneumococcal 23-valent vaccine 1 07/06/22 Given pneumococcal 23-valent vaccine 2 07/03/00 Recorded Influenza Virus Vaccine (oldterm) 3 04/06/22 Recor ded Influenza Virus Vaccine (oldterm) 03/02/20 Recorde d [id number] 12y+ bivalent booster vax 4 04/06/22 Recorded [id number] 12y+ bivalent booster vax 5 04/06/22 Recorded [...] tetanus/diphtheria/pertussis, acel(Tdap) 8 07/03/08 Recorded 1Result Comment: [id number] 2Location History: Dr. Lao 3Result Comment: Nida DUPLICATE 4Result Comment: Nida 5Result Comment: DUPLICATE 6Result Comment: NIDA 7Result Comment: [facility] [id number] 8Location History: Dr. Lao Medications amLODIPine 10 mg oral tablet 10 mg, 1, tablet, By Mouth, Daily, Increase in dose, # 90 tablet, Refills 3, Tot. Refills 3, Maintenance, 04/27/22 13:48:00 EDT, Route to Pharmacy Electronically, [facility] #[id number], Partialfill upon patient request if the prescription is fo... Start Date: 04/27/22 Status: Ordered duloxetine 30 mg oral enteric coated capsule 1 capsule = 30 mg, By Mouth, 2 times a day, Increase in dose, # 180 capsule, 3 Refills, Maintenance, 04/27/22 13:42:00 EDT, [facility] #[id number], Partial fill upon patient request if the [...] 11/15/22 6:26:00 EDT, Route to Pharmacy Electronically, [facility] #[id number], Partial fill upon patient request if the prescriptio... Start Date: 11/15/22 Stop Date: 11/16/22 Status: Ordered ibuprofen 800 mg oral tablet 800 mg, 1, tablet, By Mouth, 2 times a day, # 270 tablet, Refills 1, Tot. Refills 1, Acute :26:00 EDT, 11/15/21 6:26:00 EDT, Route to Pharmacy Electronically, [facility] #[id number], Partial fill upon patient request if the prescription... Start Date: 11/15/21 Stop Date: 11/15/22 Status: Ordered lisinopril 20 mg oral tablet See Instructions, TAKE 1 TABLET DAILY, # 90 tablet, Refills 3, Tot. Refills 3, 11/15/21 6:27:00 EDT, Instructions Replace Required Details, [id number], 170, cm, 10/25/21 16:19:00 EDT, Height Start Date: 11/15/21 Status: Ordered LORazepam 1 mg oral tablet 1 tablet = 1 mg, By Mouth, 2 times a day, PRN as needed for anxiety, # 60 tablet, 2 Refills, Maintenance, 07/28/22 14:24:00 EST, Tablet, [facility] #[id number], 170, cm, 07/06/22 13:11:00 EST, Height Start Date: 07/28/22 Status: Ordered Magnesium Oxide = 400 mg, By Mouth, 0 Refills, Maintenance, 07/06/22 13:16:00 EST, Partial fill upon patient request if the prescription is for a schedule II opioid drug. Start Date: 07/06/22 Status: Ordered sertraline 50 mg oral tablet [...] vascular disease) with claudication 1 Confirmed Active Sore throat Confirmed Active Underweight Confirmed Active 76859 CTA: IMPRESSION: 1. 70% stenosis of the [...] Team Personnel Name: Kevyn Mckeon MD Position: [facility] Primary Care Physician Member Role: PCP Address: Address: [address] [place] [address]- Care Team Related Persons Name: MARYCRUZ MANN Name: NO, NONE Name: DAVID KRAFT Address: home [address] [facility] [address] [place] [id number]
--- OUTSIDE RECORDS SUMMARY | 2023-03-13 14:21 | XMS_ITS | Continuity of Care Document ---
Author Name Unknown Organization [facility] [place] Bryson lt Address [address] [place] [address]- Care Team Providers Care Fig Bar Machine Operator Name Role Phone Mike HEATH, Kevyn Gaytan Primary Care Physician [place] [facility] [place] 09/13/22 - 10/13/22 [facility] Adult [address] [place] [address]- Allergies, Adverse Reactions, Alerts Substance Reaction Severity Status sulfa drugs Active Flonase Active Demerol HCl Active Percocet 5/325 Active ZyrTEC rash Active Immunizations Given and Recorded Vaccine Date Status Refusal Reason pneumococcal 23-valent vaccine 1 07/06/22 Given pneumococcal 23-valent vaccine 2 07/03/00 Recorded Influenza Virus Vaccine (oldterm) 3 04/06/22 Recor ded Influenza Virus Vaccine (oldterm) 03/02/20 Recorde d [id number] 12y+ bivalent booster vax 4 04/06/22 Recorded [id number] 12y+ bivalent booster vax 5 04/06/22 Recorded [...] tetanus/diphtheria/pertussis, acel(Tdap) 8 07/03/08 Recorded 1Result Comment: [id number] 2Location History: Dr. Lao 3Result Comment: Nida DUPLICATE 4Result Comment: Nida 5Result Comment: DUPLICATE 6Result Comment: NIDA 7Result Comment: [facility] [id number] 8Location History: Dr. Lao Medications amLODIPine 10 mg oral tablet 10 mg, 1, tablet, By Mouth, Daily, Increase in dose, # 90 tablet, Refills 3, Tot. Refills 3, Maintenance, 04/27/22 13:48:00 EDT, Route to Pharmacy Electronically, [facility] #[id number], Partialfill upon patient request if the prescription is fo... Start Date: 04/27/22 Status: Ordered dicyclomine 10 mg oral capsule 1 capsule = 10 mg, By Mouth, 4 times a day, # 56 capsule, 3 Refills, Maintenance, 09/29/22 6:39:00 EDT, Capsule, [facility] #[id number], Partial fill upon patient request if the prescription is for a schedule II opioid drug., 170, cm, 09/07/22 11... Start Date: 09/29/22 Stop Date: 11/24/22 Status: Ordered duloxetine 30 mg oral enteric coated capsule 1 capsule = 30 mg, By Mouth, 2 times a day, Increase in dose, # 180 capsule, 3 Refills, Maintenance, 04/27/22 13:42:00 EDT, [facility] #[id number], Partial fill upon patient request if the [...] 11/15/22 6:26:00 EDT, Route to Pharmacy Electronically, [facility] #[id number], Partial fill upon patient request if the prescriptio... Start Date: 11/15/22 Stop Date: 11/16/22 Status: Ordered ibuprofen 800 mg oral tablet 800 mg, 1, tablet, By Mouth, 2 times a day, # 270 tablet, Refills 1, Tot. Refills 1, Acute 236:26:00 EDT, 11/15/21 6:26:00 EDT, Route to Pharmacy Electronically, [facility] #[id number], Partial fill upon patient request if the prescription... Start Date: 11/15/21 Stop Date: 11/15/22 Status: Ordered lisinopril 20 mg oral tablet See Instructions, TAKE 1 TABLET DAILY, # 90 tablet, Refills 3, Tot. Refills 3, 11/15/21 6:27:00 EDT, Instructions Replace Required Details, Route to Pharmacy Electronically, [facility] #[id number], 170, cm, 10/25/21 16:19:00 EDT, Height Start Date: 11/15/21 Status: Ordered LORazepam 1 mg oral tablet 1 tablet = 1 mg, By Mouth, 2 times a day, PRN as needed for anxiety, # 60 tablet, 2 Refills, Maintenance, 07/28/22 14:24:00 EST, Tablet, [facility] #[id number], 170, cm, 07/06/22 13:11:00 EST, Height Start [...] claudication 1 Confirmed Active Underweight Confirmed Active 62271 CTA: IMPRESSION: 1. 70% stenosis of the [...] Team Personnel Name: Kevyn Mckeon MD Position: [facility] Primary Care Physician Member Role: PCP Address: Address: [address] [place] [address]- Care Team Related Persons Name: MARYCRUZ MANN Name: NO, NONE Name: DAVID KRAFT Address: home [address] [facility] [address] [place] [id number]
--- OUTSIDE RECORDS SUMMARY | 2023-03-13 14:21 | XMS_ITS | Continuity of Care Document ---
Author Name Unknown Organization [facility] Bryson lt Address [address] [place] [address]- Care Team Providers Care Fire Investigation Lieutenant Name Role Phone Mike HEATH, Kevyn Gaytan Primary Care Physician [phone] [place] [facility] [place] 04/23/21 - 05/23/21 [facility] Adult [address] [place] [address]- Allergies, Adverse Reactions, Alerts Substance Reaction Severity [...] 23-valent vaccine 3 07/03/00 Recorded 1Result Comment: [facility] [id number] 2Location History: Dr. Lao 3Location History: Dr. [...] tablet, By Mouth, Daily, # 90 tablet, 3 Refills, Maintenance, 02/23/21 11:22:00 EDT, [facility], 170, cm, 02/01/21 12:54:00 EDT, Height Start Date: 02/23/21 Status: Ordered fentanyl 12 mcg/hr transdermal film, extended release 1 patch, Topically, Every 72 hours, # 10 film, 0 Refills, Maintenance, 05/10/21 14:43:00 EST, Patch, [facility] #[id number], Partial fill upon patient request if the prescription is for a schedule II opioid drug., 170, cm, 05/03/21 13:38:00 EDT,... Start Date: 05/10/21 Status: Ordered lisinopril 20 mg oral tablet See Instructions, TAKE 1 TABLET DAILY, # 90 Unknown, Refills 0, Maintenance, Instructions Replace Required Details, Route to Pharmacy Electronically, [facility], 170, cm, 12/10/20 13:41:00 EDT, Height Start Date: 01/26/21 Status: Ordered LORazepam 1 mg oral tablet 1 tablet = 1 mg, By Mouth, 2 times a day, PRN as needed for anxiety, # 180 tablet, 1 Refills, Maintenance, 05/19/21 6:54:00 EST, Tablet, [facility], 170, cm, 05/03/21 13:38:00 EDT, Height Start Date: 05/19/21 Status: Ordered pantoprazole 40 mg oral delayed release tablet 1 tablet = 40 mg, By Mouth, 2 times a day, # 180 tablet, 1 Refills, Maintenance, 08/18/20 16:22:00 EST, 170, cm, 05/11/20 13:39:00 EST, Height Start Date: 08/18/20 Status: Ordered sertraline 25 mg oral tablet 1 tablet = 25 mg, By Mouth, 2 times a day, # 180 tablet, 1 Refills, Maintenance, 12/11/20 14:10:00 EDT, [facility], 170, cm, 12/10/20 13:41:00 EDT, Height Start Date: 12/11/20 Status: Ordered Standard lightweight wheel chair with brakes and foot rests Standard lightweight wheel chair with brakes and foot rests, See Instructions, # 1 each, Refills 0,Tot. Refills 0, Maintenance, DX;M81.0 Standard lightweight wheelchair with brakes and foot rests, HIPOLITO 99MOS send to [facility], 04/12/21 16:40:00 E... Start Date: 04/12/21 Status: [...]
--- OUTSIDE RECORDS SUMMARY | 2023-03-13 14:21 | XMS_ITS | Continuity of Care Document ---
Author Name Unknown Organization [facility] Bryson lt Address [address] [place] [address]- Care Team Providers Care Hot Car Operator Name Role Phone Kevyn Mckeon MD Primary Care Physician Encounter [facility] [place] Date(s): 08/06/21 - 08/13/21 [facility] Adult [address] [place] [address]- Attending Physician: Kevyn Mckeon MD Allergies, Adverse Reactions, [...] 23-valent vaccine 3 07/03/00 Recorded 1Result Comment: [facility] [id number] 2Location History: Dr. Lao 3Location History: Dr. Lao Medications 4 wheeled walked with seat and brake 4 wheeled walked with seat and brake, See Instructions, # 1 each, Refills 0, Tot. Refills 0, Maintenance, DX:M81.0 4 wheeled walker with seat and brakes, HIPOLITO lifetime 99MOS [facility] deliver to [facility] address, 01/07/21 10:52:00 EDT, Supply Start Date: 01/07/21 Status: Ordered amitriptyline 10 mg oral tablet 10 mg, 1, tablet, By Mouth, Daily at bedtime, # 30 tablet, Refills 5, Tot. Refills 5, Maintenance, 08/06/21 16:31:00 EST, Route to Pharmacy Electronically, [facility] #[id number], Partial fill upon patient request if the prescription is for a derrick... Start Date: 08/06/21 Status: Ordered amLODIPine 2.5 mg oral tablet 1 tablet, By Mouth, Daily, # 90 tablet, 1 Refills, Maintenance, 07/12/21 15:48:00 EST, [facility], 170, cm, 05/03/21 13:38:00 EDT, Height Start Date: 07/12/21 Status: Ordered ibuprofen 800 mg oral tablet 800 mg, 1, tablet, By Mouth, 2 times a day, # 270 tablet, Refills 1, Tot. Refills 1, Acute :39:00 EST, 07/22/21 5:39:00 EST, Route to Pharmacy Electronically, [facility], Partial fill upon patient request if the prescription is for... Start Date: 07/22/21 Stop Date: 07/22/22 Status: Ordered lisinopril 20 mg oral tablet See Instructions, TAKE 1 TABLET DAILY, # 90 Unknown, Refills 1, Tot. Refills 1, 07/14/21 11:38:00 EST, Instructions Replace Required Details, Route to Pharmacy Electronically, [facility], 170, cm, 05/03/21 13:38:00 EDT, Height Start Date: 07/14/21 Status: Ordered LORazepam 1 mg oral tablet [...] day, # 180 tablet, 1 Refills, Maintenance, 07/14/21 16:29:00 EST, 170, cm, 05/03/21 13:38:00 EDT, Height Start Date: 07/14/21 Status: Ordered sertraline 25 mg oral tablet 1 tablet = 25 mg, By Mouth, 2 times a day, # 180 tablet, 1 Refills, Maintenance, 07/12/21 15:50:00 EST, [facility], 170, cm, 05/03/21 13:38:00 EDT, Height Start Date: 07/12/21 Status: Ordered Standard lightweight wheel chair with [...] diarrhea(Confirmed) Active Major depression(Confirmed) Active Osteoporosis(Confirmed) Active Vital Signs Most recent to oldest [Reference Range]: 1 Height 170 cm (08/06/21 3:24 PM) Social History Social History Type Response Smoking Status 10 or more cigarette s (1/2 pack or more)/day in last 30 days; Other: Currently smoking about 8-10 cigarettes daily.; entered on: 08/27/19 Sex
--- OUTSIDE RECORDS SUMMARY | 2023-03-13 14:21 | XMS_ITS | Continuity of Care Document ---
Author Name Unknown Organization [facility] [place] Bryson lt Address [address] [place] [address]- Care Team Providers Care Keymodule Assembly Machine Tender Name Role Phone Mike HEATH, Kevyn Gaytan Primary Care Physician [place] [facility] [place] 09/13/21 - 10/13/21 [facility] [place] Adult [address] [place] [address]- Allergies, Adverse Reactions, Alerts Substance Reaction Severity [...] vaccine 3 07/03/00 Recorded 1Result Comment: [facility] [id number] 2Location History: Dr. Lao 3Location History: Dr. [...] EDT, Height Start Date: 07/12/21 Status: Ordered azithromycin 250 mg oral tablet See Instructions, Take 2 today, then 1 daily on days 2-5, # 6 tablet, 0 Refills, Acute 10/18/21 11:01:00 EDT, 10/13/21 11:01:00 EDT, [facility] #[id number], Partial fill upon patient request if the prescription is for a schedule II opioid drug.,... Start Date: 10/13/21 Stop Date: 10/18/21 Status: Ordered lidocaine 5% topical film 1 patch, Topically, Daily, PRN Pain , Mild, remove after 12 hours, # 13 each, 0 Refills, Maintenance, 09/24/21 11:47:00 EDT, Film, [facility] #[id number], Partial fill upon patient request if the [...] and foot rests, HIPOLITO 99MOS send to [facility], 04/12/21 16:40:00 E... Start Date: 04/12/21 Status: Ordered Problem List Condition Effective Dates Status Health Status Inform ant Allergic rhinitis(Confirmed) Active Oliveira's esophagus(Confirmed) Active Claudication(Confirmed) Active Osteoarthritis of both hands(Confirmed) Active Essential hypertension(Confirmed) Active IBS (irritable bowel syndrom e) with diarrhea(Confirmed) Active Major depression(Confirmed) Active Osteoporosis(Confirmed) Active Underweight(Confirmed) Active Social History Social History Type Response Smoking Status 10 or more cigarette s (1/2 pack or more)/day in last 30 days; Other: Currently smoking about 8-10 cigarettes daily.; entered on: 08/27/19 Sex
--- OUTSIDE RECORDS SUMMARY | 2023-03-13 14:21 | XMS_ITS | Continuity of Care Document ---
Author Name Unknown Organization [facility] Bryson lt Address [address] [place] [address]- Care Team Providers Care Tire Mold Engraver Name Role Phone Mike HEATH, Kevyn Gaytan Primary Care Physician [phone] En[place] [facility] [place] Date(s): 07/12/21 - 08/11/21 [facility] Adult [address] [place] [address]- Allergies, Adverse Reactions, Alerts Substance Reaction Severity Status sulfa drugs Active Flonase Active Demerol HCl Active Percocet 5/ Active ZyrTEC rash Active Immunizations Given and [...] 23-valent vaccine 3 07/03/00 Recorded 1Result Comment: [facility] [id number] 2Location History: Dr. Lao 3Location History: Dr. [...] 08/06/21 16:31:00 EST, Route to Pharmacy Electronically, [facility] #[id number], Partial fill upon patient request if the [...] and foot rests, HIPOLITO 99MOS send to [facility], 04/12/21 16:40:00 E... Start Date: [...]
--- OUTSIDE RECORDS SUMMARY | 2023-03-13 14:22 | XMS_ITS | Continuity of Care Document ---
Author Name Unknown Organization [facility] Bryson lt Address [address] [place] [address]- Care Team Providers Care Counter Pocket Trimmer Name Role Phone Mike HEATH, Kevyn Gaytan Primary Care Physician [phone] [id number] 02[facility]24[facility] 03/03/[facility] Adult [address] [place] [address]- Encounter Diagnosis Left hip pain(Discharge Diagnosis) - 02/24/21 UTI (urinary tract infection)(Discharge Diagnosis) - 02/24/21 Attending Physician: Not on Staff, Attending MD [...] 23-valent vaccine 3 07/03/00 Recorded 1Result Comment: [facility] [id number] 2Location History: Dr. Lao 3Location History: Dr. [...] EDT, Height Start Date: 02/23/21 Status: Ordered azelastine 137 mcg/inh (0.1%) nasal spray 2 sprays, Nares, Both, Daily, PRN Other Allergies, # 30 mL, 2 Refills, Maintenance, 11/23/20 16:34:00 EDT, [place], [facility] #[id number], Partial fill upon patient request if the prescription is for a schedule II opioid drug., 2 sprays Nares, B... Start Date: 11/23/20 Status: Ordered dicyclomine 10 mg oral capsule 2 capsule = 20 mg, By Mouth, 3 times a day, # 180 capsule, 5 Refills, Maintenance, 07/06/20 17:01:00 EST, [facility] #[id number], 170, cm, 05/11/20 13:39:00 EST, Height Start Date: 07/06/20 Status: Ordered ibuprofen 800 mg oral tablet 800 mg, 1, tablet, By Mouth, 2 times a day, # 270 tablet, Refills 1, Tot. Refills 1, Acute 05/19/2117:45:00 EST, 11/16/20 17:32:00 EDT, Route to Pharmacy Electronically, [facility] #[id number],Partial fill upon patient request if the prescripti... Start Date: 11/16/20 Stop Date: 05/19/21 Status: Ordered lidocaine 5% topical film 1 patch, Topically, Daily, PRN Pain , Mild, remove after 12 hours, # 5 patch, 0 Refills, Maintenance, 01/18/21 13:10:00 EDT, Film, [facility] #[id number], Partial fill upon patient request if the [...] ml) bottles pre-mixed. Please call pt for miner pick., Compound Start Date: 04/16/19 Status: Ordered Redi-Cat-(2) two pre-mixed 450 ml bottles Redi-Cat-(2) two pre-mixed 450 ml bottles, See Instructions, # 2 bottle, Refills 0, Tot. Refills 0,Maintenance, Follow instructions included per PCP office., 04/16/19 15:40:53 EDT, 2 (450 ml) bottles pre-mixed. Please call pt for miner pick., Compound Start Date: 04/16/19 Status: Ordered sertraline [...] diarrhea(Confirmed) Active Major depression(Confirmed) Active Osteoporosis(Confirmed) Active Diagnosis Diagnosis Type Effective Dates Health Status Cl inical Service Informant Left hip pain Discharge Diagnosis 02/24/21 UTI (urinary tract infection) Discharge Diagnosis 02/24/21 Social History Social History Type Response Smoking Status 10 or more cigarette s (1/2 pack or more)/day in last 30 days; Other: Currently smoking about 8-10 cigarettes daily.; entered on: 08/27/19 Sex
--- OUTSIDE RECORDS SUMMARY | 2023-03-13 14:22 | XMS_ITS | Continuity of Care Document ---
Author Name Unknown Organization [facility] Bryson lt Address [address] [place] [address]- Care Team Providers Care Chair Inspector Name Role Phone Kevyn Mckeon MD Primary Care Physician [phone] Encounter [facility] [place] Date(s): 11/12/21 - 12/12/21 [facility] Adult [address] [place] [address]- Attending Physician: Kevyn Mckeon MD Allergies, Adverse [...] 23-valent vaccine 3 07/03/00 Recorded 1Result Comment: [facility] [id number] 2Location History: Dr. Lao 3Location History: Dr. [...] 11/15/21 6:26:00 EDT, Route to Pharmacy Electronically, [facility] #[id number], Partial fill upon patient request if the prescription... Start Date: 11/15/21 Stop Date: 11/15/22 Status: Ordered lidocaine 5% topical film 1 patch, Topically, Daily, PRN Pain , Mild, remove after 12 hours, # 13 each, 0 Refills, Maintenance, 09/24/21 11:47:00 EDT, Film, [facility] #[id number], Partial fill upon patient request if the prescription is for a schedule II opioid drug., 1... Start Date: 09/24/21 Status: Ordered lisinopril 20 mg oral tablet See Instructions, TAKE 1 TABLET DAILY, # 90 tablet, Refills 3, Tot. Refills 3, 11/15/21 6:27:00 EDT, Instructions Replace Required Details, Route to Pharmacy Electronically, [facility] #[id number], 170, cm, 10/25/21 16:19:00 EDT, Height Start [...] and foot rests, HIPOLITO 99MOS send to [facility], 04/12/21 16:40:00 E... Start Date: 04/12/21 Status: Ordered Problem List Condition Effective Dates Status Health Status Inform ant Allergic rhinitis(Confirmed) Active Oliveira's esophagus(Confirmed) Active Osteoarthritis of both hands(Confirmed) Active Essential hypertension(Confirmed) Active IBS (irritable bowel syndrom e) with diarrhea(Confirmed) Active Major depression(Confirmed) Active Osteoporosis(Confirmed) Active PVD (peripheral vascular dis ease) with claudication(Confirmed) 1 Active Underweight(Confirmed) Active 18190 CTA: IMPRESSION: 1. 70% stenosis of the [...]
--- OUTSIDE RECORDS SUMMARY | 2023-03-13 14:22 | XMS_ITS | Continuity of Care Document ---
Author Name Unknown Organization [facility] Bryson lt Address [address] [place] [address]- Care Team Providers Care Sports Book Board Attendant Name Role Phone Mike HEATH, Kevyn Gaytan Primary Care Physician [place] [facility] [place] 06/25[place]21 [facility] Adult [address] [place] [address]- Allergies, Adverse Reactions, Alerts Substance Reaction Severity Status sulfa drugs Active Flonase Active Demerol HCl Active Percocet Active ZyrTEC rash Active Immunizations Given and [...] 23-valent vaccine 3 07/03/00 Recorded 1Result Comment: [facility] [id number] 2Location History: Dr. Lao 3Location History: Dr. Lao Medications 4 wheeled walked with seat and brake 4 wheeled walked with seat and brake, See Instructions, # 1 each, Refills 0, Tot. Refills 0, Maintenance, DX:M81.0 4 wheeled walker with seat and brakes, HIPOLITO lifetime 99MOS [facility], 01/07/21 10:52:00 EDT, Supply Start Date: [...] 0 Refills, Maintenance, 05/10/21 14:43:00 EST, Patch, [facility] #[id number], Partial fill upon patient request if the prescription is for a schedule II opioid drug., 170, cm, 05/03/21 13:38:00 EDT,... Start Date: 05/10/21 Status: Ordered lisinopril 20 mg oral tablet See Instructions, TAKE 1 TABLET DAILY, # 90 Unknown, Refills 0, Maintenance, Instructions Replace Required Details, Route to Pharmacy Electronically, [facility], 170, cm, 12/10/20 13:41:00 EDT, Height [...] tablet, 1 Refills, Maintenance, 12/11/20 14:10:00 EDT, [facility], 170, cm, 12/10/20 13:41:00 EDT, Height Start Date: 12/11/20 Status: Ordered Standard lightweight wheel chair with brakes and foot rests Standard lightweight wheel chair with brakes and foot rests, See Instructions, # 1 each, Refills 0,Tot. Refills 0, Maintenance, DX;M81.0 Standard lightweight wheelchair with brakes and foot rests, HIPOLITO 99MOS send to [facility] [place], 04/12/21 16:40:00 E... Start Date: 04/12/21 Status: [...]
--- OUTSIDE RECORDS SUMMARY | 2023-03-13 14:22 | XMS_ITS | Continuity of Care Document ---
Author Name Unknown Organization [facility] Address [address] [place] [address] [address] [place] [address]- Care Team Providers Care Office Clin Asst Name Role Phone Mike HEATH, Kevyn Gaytan Primary Care Physician [place] [facility] [place](s[place] 01/23/23 - 02/22/[address] [place] [address]- Allergies, Adverse Reactions, Alerts Substance Reaction Severity Status predniSONE makes you jumpy Active sulfa drugs itchy, red Active Flonase vomiting Active Augmentin ? caused c diff Active Demerol HCl sick to stomach Active Adhesive Bandage use paper tape thin skin bandages cause tears in skin Active Nuts tree nuts - upset stomach Ac tive Pollen Active Percocet sick to stomach Active ZyrTEC rash Active Immunizations Given and Recorded Vaccine Date Status Refusal Reason pneumococcal 23-valent vaccine 1 07/06/22 Given pneumococcal 23-valent vaccine 2 07/03/00 Recorded [id number] 12y+ bivalent booster vax 3 04/06/22 Recorded [...] tetanus/diphtheria/pertussis, acel(Tdap) 6 07/03/08 Recorded 1Result Comment: [id number] 2Location History: Dr. Lao 3Result Comment: [place] 4Result Comment: [place] 5Result Comment: [facility] [id number] 6Location History: Dr. Lao Medications acetaminophen 500 [...] 04/27/22 13:48:00 EDT, Route to Pharmacy Electronically, [facility] #[id number], Partialfill upon patient request if the prescription is fo... Start Date: 04/27/22 Status: Ordered Ativan 1 mg oral tablet 1 tablet = 1 mg, By Mouth, 2 times a day, 0 Refills, Maintenance, 02/20/23 11:53:00 EDT, Tablet, Partial fill upon patient request if the prescription is for a schedule II opioid drug. Start Date: 02/20/23 Status: Ordered dicyclomine 20 mg oral tablet 1 tablet = 20 mg, By Mouth, 4 times a day, PRN spasm, Increase in dose, # 56 tablet, 5 Refills, Maintenance, 10/19/22 13:40:00 EDT, Tablet, [facility] #[id number], Partial fill upon patient request if the prescription is for a schedule II opioid... Start Date: 10/19/22 Stop Date: 01/11/23 Status: Ordered duloxetine 30 mg oral enteric coated capsule 1 capsule = 30 mg, By Mouth, 2 times a day, Increase in dose, # 180 capsule, 3 Refills, Maintenance, 04/27/22 13:42:00 EDT, [facility] #[id number], Partial fill upon patient request if the prescription is for a schedule II opioid drug., 170, cm,... Start Date: 04/27/22 Status: Ordered Esomeprazole 40 mg, Daily at supper, Refills 0, Maintenance, 07/06/22 13:18:00 EST, Partial fill upon patient request if the prescription is for a schedule II opioid drug. Start Date: 07/06/22 Status: Ordered lisinopril 20 mg oral tablet 20 mg, 1, tablet, By Mouth, Daily, for 90 days, # 90 tablet, Refills 3, Tot. Refills 3, Physician Stop 01/21/24 12:33:00 EDT, 01/26/23 12:33:00 EDT, Route to Pharmacy Electronically, [facility][id number], 165, cm, 01/11/23 11:25:00 EDT, Height Start Date: 01/26/23 Stop Date: 01/21/24 Status: Ordered sertraline 50 mg oral tablet 1 tablet, By Mouth, 2 times a day, # 180 tablet, 3 Refills, Maintenance, 09/22/22 5:18:00 EDT, [facility] 170, cm, 09/07/22 11:31:00 EST, [...] claudication 1 Confirmed Active Underweight Confirmed Active 89473 CTA: IMPRESSION: 1. 70% stenosis of the [...] 8-10 cigarettes daily.; entered on: 08/27/19 Sex Implantable Device List Procedure Provider Procedure Date Device Type Site Repair Hernia Inguinal Open Gavino Dunlap MD 02/22/23 Un known Groin Right Device Identifier Serial Number Lot or Batch Number Manufacturing Date Expiration Date Distinct Identification Code MRI Safety Implantable Status Assigning Authority Unknown Unknown [id number] Unknown 11/27/26 Unknown Unknown Active Unknown Procedure Provider Procedure Date Device Type Site Repair Hernia Inguinal Open Gavino Dunlap MD 02/22/23 Un known Abdomen Device Identifier Serial Number Lot or Batch Number Manufacturing Date Expiration Date Distinct Identification Code MRI Safety Implantable Status Assigning Authority Unknown Unknown [id number] Unknown 07/30/27 Unknown Unknown Active Unknown Procedure Provider Procedure Date Device Type Site Repair Hernia Ventral Open Gavino Dunlap MD 02/22/23 Unk nown Abdomen Device Identifier Serial Number Lot or Batch Number Manufacturing Date Expiration Date Distinct Identification Code MRI Safety Implantable Status Assigning Authority Unknown Unknown [id number] Unknown 08/30/24 Unknown Unknown Active Unknown Patient Care team information Care Team Personnel Name: Kevyn Mckeon MD Position: [facility] Physician - Primary Care Member Role: PCP Address: Address: [address] [place] [id number]- Name: Melissa Chau RN Position: [facility] RN Member Role: Primary Care Nurse Name: Gemini Alfaro Position: [facility] [place] Improvement Auditor Member Role: Knife Edger Name: Ana Lopes RN Position: [facility] RN Member Role: Primary Care Nurse Care Team Related Persons Name: CATY LOCKWOOD Name: MARYCRUZ MANN Name: MARYCRUZ TORRES Name: NO, NONE Name: DAVID KRAFT Address: [address] [address]
--- OUTSIDE RECORDS SUMMARY | 2023-03-13 14:22 | XMS_ITS | Continuity of Care Document ---
Author Name Unknown Organization [facility] Address [address] [place] [address] Dr [address] [place] [address]- Care Team Providers Care Regional Clinical Director Name Role Phone Mike HEATH, Kevyn Gaytan Primary Care Physician [phone] Encounter [facility] [place] Date(s): 10/06/22 - 11/05/[address] [place] [address]- Allergies, Adverse Reactions, Alerts Substance Reaction Severity Status sulfa drugs Active Flonase Active Demerol HCl Active Percocet 5325 Active ZyrTEC rash Active Immunizations Given and Recorded Vaccine Date Status Refusal Reason pneumococcal 23-valent vaccine 1 07/06/22 Given pneumococcal 23-valent vaccine 2 07/03/00 Recorded Influenza Virus Vaccine (oldterm) 3 04/06/22 Recor ded Influenza Virus Vaccine (oldterm) 03/02/20 Recorde d [id number] 12y+ bivalent booster vax 4 04/06/22 Recorded [id number] 12y+ bivalent booster vax 5 04/06/22 Recorded [...] tetanus/diphtheria/pertussis, acel(Tdap) 8 07/03/08 Recorded 1Result Comment: [id number] 2Location History: Dr. Lao 3Result Comment: Nida DUPLICATE 4Result Comment: Nida 5Result Comment: DUPLICATE 6Result Comment: NIDA 7Result Comment: [facility] [place] [id number] 8Location History: Dr. Lao Medications amLODIPine 10 mg oral tablet 10 mg, 1, tablet, By Mouth, Daily, Increase in dose, # 90 tablet, Refills 3, Tot. Refills 3, Maintenance, 04/27/22 13:48:00 EDT, Route to Pharmacy Electronically, [facility] #[id number], Partialfill upon patient request if the prescription is fo... Start Date: 04/27/22 Status: Ordered dicyclomine 10 mg oral capsule 1 capsule = 10 mg, By Mouth, 4 times a day, for 14 days, # 56 capsule, 3 Refills, Hard Stop 11/24/22 6:39:00 EDT, 09/29/22 6:39:00 EDT, Capsule, [facility] #[id number], Partial fill upon patientrequest if the prescription is for a schedule II op... Start Date: 09/29/22 Stop Date: 11/24/22 Status: Ordered dicyclomine 20 mg oral tablet 1 tablet = 20 mg, By Mouth, 4 times a day, PRN spasm, Increase in dose, # 56 tablet, 5 Refills, Maintenance, 10/19/22 13:40:00 EDT, Tablet, [facility] #[id number], Partial fill upon patient request if the prescription is for a schedule II opioid... Start Date: 10/19/22 Stop Date: 01/11/23 Status: Ordered duloxetine 30 mg oral enteric coated capsule 1 capsule = 30 mg, By Mouth, 2 times a day, Increase in dose, # 180 capsule, 3 Refills, Maintenance, 04/27/22 13:42:00 EDT, [facility] #[id number], Partial fill upon patient request if the [...] 11/15/22 6:26:00 EDT, Route to Pharmacy Electronically, [facility] #[id number], Partial fill upon patient request if the prescriptio... Start Date: 11/15/22 Stop Date: 11/16/22 Status: Ordered ibuprofen 800 mg oral tablet 800 mg, 1, tablet, By Mouth, 2 times a day, # 270 tablet, Refills 1, Tot. Refills 1, Acute :26:00 EDT, 11/15/21 6:26:00 EDT, Route to Pharmacy Electronically, [facility] #[id number], Partial fill upon patient request if the prescription... Start Date: 11/15/21 Stop Date: 11/15/22 Status: Ordered lisinopril 20 mg oral tablet See Instructions, TAKE 1 TABLET DAILY, # 90 tablet, Refills 3, Tot. Refills 3, 11/15/21 6:27:00 EDT, Instructions Replace Required Details, Route to Pharmacy Electronically, [facility] #[id number], 170, cm, 10/25/21 16:19:00 EDT, Height Start Date: 11/15/21 Status: Ordered LORazepam 1 mg oral tablet 1 tablet = 1 mg, By Mouth, 3 times a day, 0 Refills, Maintenance, 10/19/22 11:20:00 EDT, Partial fill upon patient request if the prescription is for a schedule II opioid drug. Start Date: 10/19/22 Status: Ordered LORazepam 1 mg oral tablet 1 tablet = 1 mg, By Mouth, 2 times a day, PRN as needed for anxiety, # 60 tablet, 2 Refills, Maintenance, 07/28/22 14:24:00 EST, Tablet, [facility] #[id number], 170, cm, 07/06/22 13:11:00 EST, Height Start Date: 07/28/22 Status: Ordered Magnesium Oxide = 400 mg, By Mouth, 0 Refills, Maintenance, 07/06/22 13:16:00 EST, Partial fill upon patient request if the prescription is for a schedule II opioid drug. Start Date: 07/06/22 Status: Ordered Misc Rx Refills 0, Maintenance, probiotic, 10/19/22 13:25:00 [...] EST, Height Start Date: 09/22/22 Status: Ordered Tylenol Extra Strength 500 mg oral tablet 1 tablet = 500 mg, By Mouth, 2 times a day, 0 Refills, Maintenance, 10/19/22 13:24:00 EDT, Partial fill upon patient request if the prescription is for a schedule II opioid drug. Start Date: 10/19/22 Status: Ordered Problem List Condition Confirmation Course [...] claudication 1 Confirmed Active Underweight Confirmed Active 94141 CTA: IMPRESSION: 1. 70% stenosis of the [...] Name: Kevyn Mckeon MD Position: [facility] Primary Care Physician Member Role: PCP Address: Address: [address] [place] [address]- Care Team Related Persons Name: CATY LOCKWOOD Name: MARYCRUZ MANN Name: MARYCRUZ TORRES Name: NO, NONE Name: DAVID KRAFT Address: [address] [address]
--- OUTSIDE RECORDS SUMMARY | 2023-03-13 14:22 | XMS_ITS | Continuity of Care Document ---
Author Name Unknown Organization [facility] Bryson lt Address [address] [place] [address]- Care Team Providers Care Planer Operator / Grader Name Role Phone Mike HEATH, Kevyn Gaytan Primary Care Physician [phone] Encounter [facility] [place] Date(s): 07/06/20 - 08/05/20 [facility] Adult [address] [place] [address]- Allergies, Adverse Reactions, Alerts Substance Reaction Severity Status sulfa drugs Active Flonase Active Demerol HCl Active Percocet 5/325 Active ZyrTEC rash Active Immunizations Given and Recorded Vaccine Date Status Refusal Reason Influenza Virus Vaccine (oldterm) 03/02/20 Recorde d tetanus/diphtheria/pertussis, acel(Tdap) 1 07/03/08 Recorded pneumococcal 23-valent vaccine 2 07/03/00 Recorded 1Location History: Dr. Lao 2Location History: Dr. Lao Medications amLODIPine 2.5 mg oral tablet 1 tablet, By Mouth, Daily, # 90 Unknown, 3 Refills, Maintenance, 03/02/20 14:31:00 EDT, [facility], 170, cm, 03/02/20 13:50:00 EDT, Height Start Date: 03/02/20 Status: Ordered dicyclomine 10 mg oral capsule 2 capsule = 20 mg, By Mouth, 3 times a day, # 180 capsule, 5 Refills, Maintenance, 07/06/20 17:01:00 EST, [facility] #[id number], 170, cm, 05/11/20 13:39:00 EST, Height Start Date: 07/06/20 Status: Ordered ibuprofen 800 mg oral tablet 800 mg, 1, tablet, By Mouth, 2 times a day, # 270 tablet, Refills 0, Maintenance, 08/27/19 14:05:00EST Start Date: 08/27/19 Status: Ordered lisinopril 20 mg oral tablet 20 mg, 1, tablet, By Mouth, Daily, # 90 tablet, Refills 3, Tot. Refills 3, Maintenance, 03/02/20 14:31:00 EDT, Route to Pharmacy Electronically, [facility], 170, cm, 03/02/20 13:50:00 EDT, Height Start Date: 03/02/20 Status: Ordered LORazepam 1 mg oral tablet 1 tablet = 1 mg, By Mouth, 2 times a day, PRN as needed for anxiety, # 180 tablet, 3 Refills, Maintenance, 05/19/20 13:42:00 EST, Tablet, [facility], 170, cm, 05/11/20 13:39:00 EST, Height Start Date: 05/19/20 Status: Ordered pantoprazole 40 mg oral delayed release tablet 1 tablet = 40 mg, By Mouth, 2 times a day, # 180 tablet, 0 Refills, Maintenance, 04/30/20 12:53:00 EDT, 170, cm, 03/02/20 13:50:00 EDT, Height Start Date: 04/30/20 Status: Ordered Redi-Cat-(2) two pre-mixed 450 ml bottles Redi-Cat-(2) two pre-mixed 450 ml bottles, See Instructions, # 2 bottle, Refills 0, Tot. Refills 0,Maintenance, Follow instructions included per PCP office., 04/16/19 15:37:58 EDT, 2 (450 ml) bottles pre-mixed. Please call pt for garbage pick up man., Compound Start Date: 04/16/19 Status: Ordered Redi-Cat-(2) two pre-mixed 450 ml bottles Redi-Cat-(2) two pre-mixed 450 ml bottles, See Instructions, # 2 bottle, Refills 0, Tot. Refills 0,Maintenance, Follow instructions included per PCP office., 04/16/19 15:40:53 EDT, 2 (450 ml) bottles pre-mixed. Please call pt for garbage pick up man., Compound Start Date: 04/16/19 Status: Ordered sertraline 25 mg oral tablet 1 tablet = 25 mg, By Mouth, 2 times a day, # 180 tablet, 1 Refills, Maintenance, 07/21/20 16:40:00 EST, [facility], 170, cm, 05/11/20 13:39:00 EST, Height Start Date: 07/21/20 Status: Ordered Vitamin D3 1000 intl units [...]
--- OUTSIDE RECORDS SUMMARY | 2023-03-13 14:22 | XMS_ITS | Continuity of Care Document ---
Author Name Unknown Organization [facility] Bryson lt Address [address] [place] [address]- Care Team Providers Care Shoe Patternmaker Name Role Phone Kevyn Mckeon MD Primary Care Physician Encounter [facility] [place] Date(s): 09/09/20 - 09/16/20 [facility] Adult [address] [place] [address]- Attending Physician: Kevyn Mckeon MD Allergies, Adverse [...] capsule, 5 Refills, Maintenance, 07/06/20 17:01:00 EST, [facility] #[id number], 170, cm, 05/11/20 13:39:00 EST, Height Start [...] ml) bottles pre-mixed. Please call pt for pick and shovel man., Compound Start Date: 04/16/19 Status: Ordered Redi-Cat-(2) two pre-mixed 450 ml bottles Redi-Cat-(2) two pre-mixed 450 ml bottles, See Instructions, # 2 bottle, Refills 0, Tot. Refills 0,Maintenance, Follow instructions included per PCP office., 04/16/19 15:40:53 EDT, 2 (450 ml) bottles pre-mixed. Please call pt for pick and shovel man., Compound Start Date: 04/16/19 Status: Ordered [...] syndrome)(Confirmed) Active Major depression(Confirmed) Active Osteoporosis(Confirmed) Active Vital Signs Most recent to oldest [Reference Range]: 1 Height 170 cm (09/09/20 1:48 PM) Weight 54.9 kg (09/09/20 1:48 PM) Oxygen Saturation [94-100 %] 98 % (09/09/20 1:48 PM) Pulse Rate [55-90 bpm] 70 bpm (09/09/20 1:48 PM) Body Mass Index [18.5-24.99] 19 (09/09/20 1:48 PM) Blood Pressure [90-138/55-84 mm Hg] 138/ 80mm Hg (09/09/20 1:48 PM) Temperature [96.8-100.4 DegF] 98.3 DegF (09/09/20 1:48 PM) Blood pressure sites Arm, left (09/09/20 1:48 PM) Temperature Route Oral (09/09/20 1:48 PM) Weight Obtained Via Standing scale (09/09/20 1:48 PM) Social History Social History Type Response Smoking Status 10 or more cigarette s (1/2 pack or more)/day in last 30 days; Other: Currently smoking about 8-10 cigarettes daily.; entered on: 08/27/19 Sex
--- OUTSIDE RECORDS SUMMARY | 2023-03-13 14:22 | XMS_ITS | Continuity of Care Document ---
Author Name Unknown Organization [facility] Bryson lt Address [address] [place] [address]- Care Team Providers Care Portrait Consultant Name Role Phone Kevyn Mckeon MD Primary Care Physician [phone] Encounter [facility] [place] [facility] R [id number] Date(s): 02/01/21 - 02/08/21 [facility] Adult [address] [place] [address]- Attending Physician: Kevyn Mckeon MD Allergies, Adverse Reactions, Alerts Substance Reaction Severity Status sulfa drugs Active Flonase Active ZyrTEC rash Active Percocet 5/325 Active Demerol HCl Active Immunizations Given and [...] 1Result Comment: [facility] [id number] 2Location History: Dr. Lao 3Location History: Dr. Lao Medications 4 wheeled walked with seat and brake 4 wheeled walked with seat and brake, See Instructions, # 1 each, Refills 0, Tot. Refills 0, Maintenance, DX:M81.0 4 wheeled walker with seat and brakes, HIPOLITO lifetime 99MOS [facility], 01/07/21 10:52:00 EDT, Supply Start Date: [...] mL, 2 Refills, Maintenance, 11/23/20 16:34:00 EDT, [place], [facility] #[id number], Partial fill upon patient request if the prescription is for a schedule II opioid drug., 2 sprays Nares, B... Start Date: 11/23/20 Status: Ordered dicyclomine 10 mg oral capsule 2 capsule = 20 mg, By Mouth, 3 times a day, # 180 capsule, 5 Refills, Maintenance, 07/06/20 17:01:00 EST, [facility] #[id number], 170, cm, 05/11/20 13:39:00 EST, Height Start Date: 07/06/20 Status: Ordered ibuprofen 800 mg oral tablet 800 mg, 1, tablet, By Mouth, 2 times a day, # 270 tablet, Refills 1, Tot. Refills 1, Acute 05/19/2117:45:00 EST, 11/16/20 17:32:00 EDT, Route to Pharmacy Electronically, [facility] #[id number],Partial fill upon patient request if the prescripti... Start Date: 11/16/20 Stop Date: 05/19/21 Status: Ordered lidocaine 5% topical film 1 patch, Topically, Daily, PRN Pain , Mild, remove after 12 hours, # 5 patch, 0 Refills, Maintenance, 01/18/21 13:10:00 EDT, Film, [facility] #[id number], Partial fill upon patient request if the [...] ml) bottles pre-mixed. Please call pt for machine operator hop picker., Compound Start Date: 04/16/19 Status: Ordered Redi-Cat-(2) two pre-mixed 450 ml bottles Redi-Cat-(2) two pre-mixed 450 ml bottles, See Instructions, # 2 bottle, Refills 0, Tot. Refills 0,Maintenance, Follow instructions included per PCP office., 04/16/19 15:40:53 EDT, 2 (450 ml) bottles pre-mixed. Please call pt for machine operator hop picker., Compound Start Date: 04/16/19 Status: Ordered [...] oldest [Reference Range]: 1 Height 170 cm (02/01/21 12:54 PM) Weight 54.8 kg (02/01/21 12:54 PM) Oxygen Saturation [94-100 %] 98 % (02/01/21 12:54 PM) Pulse Rate [55-90 bpm] 65 bpm (02/01/21 12:54 PM) Body Mass Index [18.5-24.99] 18.96 (02/01/21 12:54 PM) Blood Pressure [90-138/55-84 mm Hg] 130/ 70mm Hg (02/01/21 12:54 PM) Temperature [96.8-100.4 DegF] 98.3 DegF (02/01/21 12:54 PM) Mode of Delivery (Oxygen) Room air (02/01/21 12:54 PM) Blood pressure sites Arm, left (02/01/21 12:54 PM) Temperature Route Oral (02/01/21 12:54 PM) Weight Obtained Via Standing scale (02/01/21 12:54 PM) Social History Social History Type Response Smoking Status 10 or more cigarette s (1/2 pack or more)/day in last 30 days; Other: Currently smoking about 8-10 cigarettes daily.; entered on: 08/27/19 Sex
--- OUTSIDE RECORDS SUMMARY | 2023-03-13 14:22 | XMS_ITS | Continuity of Care Document ---
Author Name Unknown Organization [facility] Bryson lt Address [address] [place] [address]- Care Team Providers Care Night Monitor Name Role Phone Mike HEATH, Kevyn Gaytan Primary Care Physician Encounter [facility] [place] Date(s): 10/15/21 - 11/14/21 [facility] Adult [address] [place] [address]- Allergies, Adverse Reactions, Alerts Substance Reaction Severity [...] vaccine 3 07/03/00 Recorded 1Result Comment: [facility] [id number] 2Location History: Dr. Lao 3Location History: Dr. Lao Medications 4 wheeled walked with seat and brake 4 wheeled walked with seat and brake, See Instructions, # 1 each, Refills 0, Tot. Refills 0, Maintenance, DX:M81.0 4 wheeled walker with seat and brakes, HIPOLITO lifetime 99MOS [facility], 01/07/21 10:52:00 EDT, Supply Start Date: 01/07/21 Status: Ordered amLODIPine 2.5 mg oral tablet 1 tablet, By Mouth, Daily, # 90 tablet, 1 Refills, Maintenance, 07/12/21 15:48:00 EST, [facility], 170, cm, 05/03/21 13:38:00 EDT, Height Start Date: 07/12/21 Status: Ordered lidocaine 5% topical film 1 patch, Topically, Daily, PRN Pain , Mild, remove after 12 hours, # 13 each, 0 Refills, Maintenance, 09/24/21 11:47:00 EDT, Film, [facility] #[id number], Partial fill upon patient request if the [...] and foot rests, HIPOLITO 99MOS send to [facility] [place], operated by [facility], 04/12/21 16:40:00 E... Start Date: 04/12/21 Status: [...]
--- OUTSIDE RECORDS SUMMARY | 2023-03-13 14:22 | XMS_ITS | Continuity of Care Document ---
Author Name Unknown Organization [facility] Bryson lt Address [address] [place] [address]- Care Team Providers Care Account Receivable Associate Name Role Phone Mike HEATH, Kevyn Gaytan Primary Care Physician Encounter [facility] [place] Date(s): 10/25/21 - 11/24/21 [facility] Adult [address] [place] [address]- Allergies, Adverse Reactions, Alerts Substance Reaction Severity [...] 23-valent vaccine 3 07/03/00 Recorded 1Result Comment: [facility] [id number] 2Location History: Dr. Lao 3Location History: Dr. Lao Medications 4 wheeled walked with seat and brake 4 wheeled walked with seat and brake, See Instructions, # 1 each, Refills 0, Tot. Refills 0, Maintenance, DX:M81.0 4 wheeled walker with seat and brakes, HIPOLITO lifetime 99MOS [facility], 01/07/21 10:52:00 EDT, Supply Start [...] 11/15/21 6:26:00 EDT, Route to Pharmacy Electronically, [facility] #[id number], Partial fill upon patient request if the prescription... Start Date: 11/15/21 Stop Date: 11/15/22 Status: Ordered lidocaine 5% topical film 1 patch, Topically, Daily, PRN Pain , Mild, remove after 12 hours, # 13 each, 0 Refills, Maintenance, 09/24/21 11:47:00 EDT, Film, [facility] #[id number], Partial fill upon patient request if the prescription is for a schedule II opioid drug., 1... Start Date: 09/24/21 Status: Ordered lisinopril 20 mg oral tablet See Instructions, TAKE 1 TABLET DAILY, # 90 tablet, Refills 3, Tot. Refills 3, 11/15/21 6:27:00 EDT, Instructions Replace Required Details, Route to Pharmacy Electronically, [facility] #[id number], 170, cm, 10/25/21 16:19:00 EDT, Height Start [...] and foot rests, HIPOLITO 99MOS send to [facility], 04/12/21 16:40:00 E... Start Date: 04/12/21 [...]
--- OUTSIDE RECORDS SUMMARY | 2023-03-13 14:22 | XMS_ITS | Continuity of Care Document ---
Author Name Unknown Organization [facility] Bryson lt Address [address] [place] [address]- Care Team Providers Care Folding Machine Setter Name Role Phone Mike HEATH, Kevyn Gaytan Primary Care Physician Encounter [facility] [place] Date(s): 06/03/22 - 07/03/22 [facility] Adult [address] [place] [address]- Allergies, Adverse Reactions, Alerts Substance Reaction Severity Status sulfa drugs Active Flonase Active ZyrTEC rash Active Percocet 5/325 Active Demerol HCl Active Immunizations Given and Recorded Vaccine Date Status Refusal Reason Influenza Virus Vaccine (oldterm) 1 04/06/22 Recor ded Influenza Virus Vaccine (oldterm) 03/02/20 Recorde d [id number] 12y+ bivalent booster vax 2 04/06/22 Recorded [id number] 12y+ bivalent booster vax 3 04/06/22 Recorded influenza virus vaccine, inactivated 4 04/06/22 Re corded influenza virus vaccine, inactivated 03/28/21 Jerry rded influenza virus vaccine, inactivated 04/10/19 Jerry rded SARS-CoV-2 (COVID-19) mRNA BNT-162b2 vac 07/14/21 Recorded SARS-CoV-2 (COVID-19) mRNA BNT-162b2 vac 11/04/20 Recorded SARS-CoV-2 (COVID-19) mRNA BNT-162b2 vac 10/14/20 Recorded tetanus-diphtheria toxoids (Td) 5 12/10/20 Given pneumococcal 13-valent vaccine 06/07/16 Recorded tetanus/diphtheria/pertussis, acel(Tdap) 6 07/03/08 Recorded pneumococcal 23-valent vaccine 7 07/03/00 Recorded 1Result Comment: Nida DUPLICATE 2Result Comment: Nida 3Result Comment: DUPLICATE 4Result Comment: NIDA 5Result Comment: [facility] [id number] 6Location History: Dr. Lao 7Location History: Dr. Lao Medications amLODIPine 10 mg oral tablet 10 mg, 1, tablet, By Mouth, Daily, Increase in dose, # 90 tablet, Refills 3, Tot. Refills 3, Maintenance, 04/27/22 13:48:00 EDT, Route to Pharmacy Electronically, [facility] #[id number], Partialfill upon patient request if the prescription is fo... Start Date: 04/27/22 Status: Ordered duloxetine 30 mg oral enteric coated capsule 1 capsule = 30 mg, By Mouth, 2 times a day, Increase in dose, # 180 capsule, 3 Refills, Maintenance, 04/27/22 13:42:00 EDT, [facility] #[id number], Partial fill upon patient request if the prescription is for a schedule II opioid drug., 170, cm,... Start Date: 04/27/22 Status: Ordered ibuprofen 800 mg oral tablet 800 mg, 1, tablet, By Mouth, 2 times a day, # 270 tablet, Refills 1, Tot. Refills 1, Acute 11/16/2313:25:00 EDT, 11/15/22 6:26:00 EDT, Route to Pharmacy Electronically, [facility] #[id number], Partial fill upon patient request if the prescriptio... Start Date: 11/15/22 Stop Date: 11/16/22 Status: Ordered ibuprofen 800 mg oral tablet 800 mg, 1, tablet, By Mouth, 2 times a day, # 270 tablet, Refills 1, Tot. Refills 1, Acute :26:00 EDT, 11/15/21 6:26:00 EDT, Route to Pharmacy Electronically, [facility] #[id number], Partial fill upon patient request if the prescription... Start Date: 11/15/21 Stop Date: 11/15/22 Status: Ordered lidocaine 5% topical film 1 patch, Topically, Daily, PRN Pain , Mild, remove after 12 hours, # 13 each, 0 Refills, Maintenance, 09/24/21 11:47:00 EDT, Film, [facility] #[id number], Partial fill upon patient request if the prescription is for a schedule II opioid drug., 1... Start Date: 09/24/21 Status: Ordered lisinopril 20 mg oral tablet See Instructions, TAKE 1 TABLET DAILY, # 90 tablet, Refills 3, Tot. Refills 3, 11/15/21 6:27:00 EDT, Instructions Replace Required Details, Route to Pharmacy Electronically, [facility] #[id number], 170, cm, 10/25/21 16:19:00 EDT, Height Start Date: 11/15/21 Status: Ordered LORazepam 1 mg oral tablet 1 tablet = 1 mg, By Mouth, 2 times a day, PRN as needed for anxiety, # 60 tablet, 2 Refills, Maintenance, 04/11/22 6:39:00 EDT, Tablet, [facility] #[id number], 170, cm, 03/23/22 11:12:00 EDT, Height Start Date: 04/11/22 Status: Ordered methocarbamol 750 mg oral tablet 2 tablet = 1,500 mg, By Mouth, 3 times a day, PRN Pain , Moderate and spasm, # 90 tablet, 3 Refills, Acute 10/26/22 13:44:00 EDT, 04/27/22 13:43:00 EDT, [facility] #[id number], Partial fill uponpatient request if the prescription is for a schedu... Start Date: 04/27/22 Stop Date: 10/26/22 Status: Ordered sertraline 50 mg oral tablet [...] Sore throat Confirmed Active Underweight Confirmed Active 55660 CTA: IMPRESSION: 1. 70% stenosis of the [...] Personnel Name: Mike HEATH, Kevyn Gaytan Position: [facility] Primary Care Physician Member Role: PCP Address: Address: [address] [place] [address]- Care Team Related Persons Name: MARYCRUZ MANN Name: NO, NONE Name: DAVID KRAFT Address: [address] [address]
--- OUTSIDE RECORDS SUMMARY | 2023-03-13 14:22 | XMS_ITS | Continuity of Care Document ---
Author Name Unknown Organization [facility] Bryson lt Address [address] [place] [address]- Care Team Providers Care Alarm Mechanism Adjuster Name Role Phone Mike HEATH, Kevyn Gaytan Primary Care Physician [place] [facility] [place] 09/30/22 [facility] Adult [address] [place] [address]- Allergies, Adverse Reactions, Alerts Substance Reaction Severity Status sulfa drugs Active Flonase Active Demerol HCl Active Percocet 5/325 Active ZyrTEC rash Active Immunizations Given and Recorded Vaccine Date Status Refusal Reason pneumococcal 23-valent vaccine 1 07/06/22 Given pneumococcal 23-valent vaccine 2 07/03/00 Recorded Influenza Virus Vaccine (oldterm) 3 04/06/22 Recor ded Influenza Virus Vaccine (oldterm) 03/02/20 Recorde d [id number] 12y+ bivalent booster vax 4 04/06/22 Recorded [id number] 12y+ bivalent booster vax 5 04/06/22 Recorded influenza virus vaccine, inactivated 6 04/06/22 Re corded influenza virus vaccine, inactivated 03/28/21 Jerry rded influenza virus vaccine, inactivated 04/10/19 Jerry rded SARS-CoV-2 (COVID-19) mRNA BNT-162b2 vac 07/14/21 Recorded SARS-CoV-2 (COVID-19) mRNA BNT-162b2 vac 11/04/20 Recorded SARS-CoV-2 (COVID-19) mRNA BNT-162b2 vac 10/14/20 Recorded tetanus-diphtheria toxoids (Td) 7 12/10/20 Given pneumococcal 13-valent vaccine 12/6/16 Recorded tetanus/diphtheria/pertussis, acel(Tdap) 8 07/03/08 Recorded 1Result Comment: [id number] 2Location History: Dr. Lao 3Result Comment: Nida DUPLICATE 4Result Comment: Nida 5Result Comment: DUPLICATE 6Result Comment: DEMETRIAS 7Result Comment: [facility] [id number] 8Location History: Dr. Lao Medications amLODIPine 10 mg oral tablet 10 mg, 1, tablet, By Mouth, Daily, Increase in dose, # 90 tablet, Refills 3, Tot. Refills 3, Maintenance, 04/27/22 13:48:00 EDT, Route to Pharmacy Electronically, [facility] #[id number], Partialfill upon patient request if the prescription is fo... Start Date: 04/27/22 Status: Ordered dicyclomine 10 mg oral capsule 1 capsule = 10 mg, By Mouth, 4 times a day, # 56 capsule, 3 Refills, Maintenance, 09/29/22 6:39:00 EDT, Capsule, [facility] #[id number], Partial fill upon patient request if the prescription is for a schedule II opioid drug., 170, cm, 09/07/22 11... Start Date: 09/29/22 Stop Date: 11/24/22 Status: Ordered duloxetine 30 mg oral enteric coated capsule 1 capsule = 30 mg, By Mouth, 2 times a day, Increase in dose, # 180 capsule, 3 Refills, Maintenance, 04/27/22 13:42:00 EDT, [facility] #[id number], Partial fill upon patient request if the [...] 11/15/22 6:26:00 EDT, Route to Pharmacy Electronically, [facility] #[id number], Partial fill upon patient request if the prescriptio... Start Date: 11/15/22 Stop Date: 11/16/22 Status: Ordered ibuprofen 800 mg oral tablet 800 mg, 1, tablet, By Mouth, 2 times a day, # 270 tablet, Refills 1, Tot. Refills 1, Acute 236:26:00 EDT, 11/15/21 6:26:00 EDT, Route to Pharmacy Electronically, [facility] #[id number], Partial fill upon patient request if the prescription... Start Date: 11/15/21 Stop Date: 11/15/22 Status: Ordered lisinopril 20 mg oral tablet See Instructions, TAKE 1 TABLET DAILY, # 90 tablet, Refills 3, Tot. Refills 3, 11/15/21 6:27:00 EDT, Instructions Replace Required Details, Route to Pharmacy Electronically, [facility] #[id number], 170, cm, 10/25/21 16:19:00 EDT, Height Start Date: 11/15/21 Status: Ordered LORazepam 1 mg oral tablet 1 tablet = 1 mg, By Mouth, 2 times a day, PRN as needed for anxiety, # 60 tablet, 2 Refills, Maintenance, 07/28/22 14:24:00 EST, Tablet, [facility] #[id number], 170, cm, 07/06/22 13:11:00 EST, Height Start [...] Maintenance, 09/22/22 5:18:00 EDT, [facility]), 170, cm, 09/07/22 11:31:00 EST, [...] claudication 1 Confirmed Active Underweight Confirmed Active 84689 CTA: IMPRESSION: 1. 70% stenosis of the [...] Personnel Name: Mike HEATH, Kevyn Gaytan Position: S Primary Care Physician Member Role: PCP Address: Address: [address] [place] [address]- Care Team Related Persons Name: MAYRCRUZ MANN Name: NO, NONE Name: DAVID KRAFT Address: home [address] [facility] [facility] [address] [place] [address]
--- OUTSIDE RECORDS SUMMARY | 2023-03-13 14:22 | XMS_ITS | Continuity of Care Document ---
Author Name Unknown Organization [facility] Bryson lt Address [address] [place] [address]- Care Team Providers Care Poultry Husbandry Worker Name Role Phone Mike HEATH, Kevyn Gaytan Primary Care Physician Encounter [facility] [place] [facility] R [id number] Date(s): 09/07/22 - 10/07/22 [facility] Adult [address] [place] [address]- Attending Physician: Nessa Rouse Admitting Physician: AdmNessa flores Referring Physician: AdmtrNessa Allergies, Adverse Reactions, Alerts Substance Reaction Severity Status sulfa drugs Active Flonase Active Demerol HCl Active Percocet 5/325 Active ZyrTEC rash Active Immunizations Given and Recorded Vaccine Date Status Refusal Reason pneumococcal 23-valent vaccine 1 07/06/22 Given pneumococcal 23-valent vaccine 2 07/03/00 Recorded Influenza Virus Vaccine (oldterm) 3 04/06/22 Recor ded Influenza Virus Vaccine (oldterm) 03/02/20 Recorde d [id number] 12y+ bivalent booster vax 4 04/06/22 Recorded [id number] 12y+ bivalent booster vax 5 04/06/22 Recorded [...] tetanus/diphtheria/pertussis, acel(Tdap) 8 07/03/08 Recorded 1Result Comment: [id number] 2Location History: Dr. Lao 3Result Comment: Nida DUPLICATE 4Result Comment: Nida 5Result Comment: DUPLICATE 6Result Comment: NIDA 7Result Comment: [facility] [phone] 8Location History: Dr. Lao Medications amLODIPine 10 mg oral tablet 10 mg, 1, tablet, By Mouth, Daily, Increase in dose, # 90 tablet, Refills 3, Tot. Refills 3, Maintenance, 04/27/22 13:48:00 EDT, Route to Pharmacy Electronically, [facility] #[id number], Partialfill upon patient request if the prescription is fo... Start Date: 04/27/22 Status: Ordered dicyclomine 10 mg oral capsule 1 capsule = 10 mg, By Mouth, 4 times a day, # 56 capsule, 3 Refills, Maintenance, 09/29/22 6:39:00 EDT, Capsule, [facility] #[id number], Partial fill upon patient request if the prescription is for a schedule II opioid drug., 170, cm, 09/07/22 11... Start Date: 09/29/22 Stop Date: 11/24/22 Status: Ordered duloxetine 30 mg oral enteric coated capsule 1 capsule = 30 mg, By Mouth, 2 times a day, Increase in dose, # 180 capsule, 3 Refills, Maintenance, 04/27/22 13:42:00 EDT, [facility] #[id number], Partial fill upon patient request if the [...] 11/15/22 6:26:00 EDT, Route to Pharmacy Electronically, [facility] #[id number], Partial fill upon patient request if the prescriptio... Start Date: 11/15/22 Stop Date: 11/16/22 Status: Ordered ibuprofen 800 mg oral tablet 800 mg, 1, tablet, By Mouth, 2 times a day, # 270 tablet, Refills 1, Tot. Refills 1, Acute 236:26:00 EDT, 11/15/21 6:26:00 EDT, Route to Pharmacy Electronically, [facility] #[id number], Partial fill upon patient request if the prescription... Start Date: 11/15/21 Stop Date: 11/15/22 Status: Ordered lisinopril 20 mg oral tablet See Instructions, TAKE 1 TABLET DAILY, # 90 tablet, Refills 3, Tot. Refills 3, 11/15/21 6:27:00 EDT, Instructions Replace Required Details, Route to Pharmacy Electronically, [facility] #[id number], 170, cm, 10/25/21 16:19:00 EDT, Height Start Date: 11/15/21 Status: Ordered LORazepam 1 mg oral tablet 1 tablet = 1 mg, By Mouth, 2 times a day, PRN as needed for anxiety, # 60 tablet, 2 Refills, Maintenance, 07/28/22 14:24:00 EST, Tablet, [email or web address] #[id number], 170, cm, 07/06/22 13:11:00 EST, Height Start [...] claudication 1 Confirmed Active Underweight Confirmed Active 86871 CTA: IMPRESSION: 1. 70% stenosis of the [...] daily.; entered on: 08/27/19 Sex Note * Event Display: Non Lab Results Authored Date: Patient Care team information Care Team Personnel Name: Kevyn Mckeon MD Position: [facility] Primary Care Physician Member Role: PCP Address: Address: [address] [place] [address]- Care Team Related Persons Name: MARYCRUZ MANN Name: NO, NONE Name: DAVID KRAFT Address: home [address] [place] [address] [place] [address]
--- OUTSIDE RECORDS SUMMARY | 2023-03-13 14:22 | XMS_ITS | Continuity of Care Document ---
Author Name Unknown Organization [facility] Bryson lt Address [address] [place] [address]- Care Team Providers Care Concept Artist Name Role Phone Mike HEATH, Kevyn Gaytan Primary Care Physician En[place] [facility] [place] Date(s): 08/19/21 - 08/26/21 [facility] Adult [address] [place] [address]- Attending Physician: Roly Keane MD Allergies, Adverse Reactions, Alerts Substance Reaction Severity Status sulfa drugs Active Flonase Active Demerol HCl Active ZyrTEC rash Active Percocet 5/325 Active Immunizations Given and [...] 23-valent vaccine 3 07/03/00 Recorded 1Result Comment: [facility] [id number] 2Location History: Dr. Lao 3Location History: Dr. [...] 08/06/21 16:31:00 EST, Route to Pharmacy Electronically, [facility] #[id number], Partial fill upon patient request if the [...] and foot rests, HIPOLITO 99MOS send to [facility], 04/12/21 16:40:00 E... Start Date: 04/12/21 Status: Ordered Problem List Condition Effective Dates Status Health Status Inform ant Allergic rhinitis(Confirmed) Active Oliveira's esophagus(Confirmed) Active Claudication(Confirmed) Active Osteoarthritis of both hands(Confirmed) Active Essential hypertension(Confirmed) Active IBS (irritable bowel syndrom e) with diarrhea(Confirmed) Active Major depression(Confirmed) Active Osteoporosis(Confirmed) Active Vital Signs Most recent to oldest [Reference Range]: 1 Height 170 cm (08/19/21 10:34 AM) Social History Social History Type Response Smoking Status 10 or more cigarette s (1/2 pack or more)/day in last 30 days; Other: Currently smoking about 8-10 cigarettes daily.; entered on: 08/27/19 Sex
--- OUTSIDE RECORDS SUMMARY | 2023-03-13 14:22 | XMS_ITS | Continuity of Care Document ---
Author Name Unknown Organization [facility] Bryson lt Address [address] [place] [address]- Care Team Providers Care Developer Automatic Name Role Phone Mike HEATH, Kevyn Gaytan Primary Care Physician [phone] Encounter [facility] Date(s): 08/01/22 - 08/31/22 [facility] Adult [address] [place] [address]- Allergies, Adverse Reactions, Alerts Substance Reaction Severity Status sulfa drugs Active Flonase Active Demerol HCl Active Percocet 5/325 Active ZyrTEC rash Active Immunizations Given and Recorded Vaccine Date Status Refusal Reason pneumococcal 23-valent vaccine 1 07/06/22 Given pneumococcal 23-valent vaccine 2 07/03/00 Recorded Influenza Virus Vaccine (oldterm) 3 04/06/22 Recor ded Influenza Virus Vaccine (oldterm) 03/02/20 Recorde d [id number] 12y+ bivalent booster vax 4 04/06/22 Recorded [id number] 12y+ bivalent booster vax 5 04/06/22 Recorded [...] tetanus/diphtheria/pertussis, acel(Tdap) 8 07/03/08 Recorded 1Result Comment: [id number] 2Location History: Dr. Lao 3Result Comment: Nida DUPLICATE 4Result Comment: Nida 5Result Comment: DUPLICATE 6Result Comment: NIDA 7Result Comment: [facility] [id number] 8Location History: Dr. Lao Medications amLODIPine 10 mg oral tablet 10 mg, 1, tablet, By Mouth, Daily, Increase in dose, # 90 tablet, Refills 3, Tot. Refills 3, Maintenance, 04/27/22 13:48:00 EDT, Route to Pharmacy Electronically, [facility] #[id number], Partialfill upon patient request if the prescription is fo... Start Date: 04/27/22 Status: Ordered duloxetine 30 mg oral enteric coated capsule 1 capsule = 30 mg, By Mouth, 2 times a day, Increase in dose, # 180 capsule, 3 Refills, Maintenance, 04/27/22 13:42:00 EDT, [facility] #[id number], Partial fill upon patient request if the [...] 11/15/22 6:26:00 EDT, Route to Pharmacy Electronically, [facility] #[id number], Partial fill upon patient request if the prescriptio... Start Date: 11/15/22 Stop Date: 11/16/22 Status: Ordered ibuprofen 800 mg oral tablet 800 mg, 1, tablet, By Mouth, 2 times a day, # 270 tablet, Refills 1, Tot. Refills 1, Acute :26:00 EDT, 11/15/21 6:26:00 EDT, Route to Pharmacy Electronically, [facility] #[id number], Partial fill upon patient request if the prescription... Start Date: 11/15/21 Stop Date: 11/15/22 Status: Ordered lisinopril 20 mg oral tablet See Instructions, TAKE 1 TABLET DAILY, # 90 tablet, Refills 3, Tot. Refills 3, 11/15/21 6:27:00 EDT, Instructions Replace Required Details, Route to Pharm[facility]ically, [id number], 170, cm, 10/25/21 16:19:00 EDT, Height Start Date: 11/15/21 Status: Ordered LORazepam 1 mg oral tablet 1 tablet = 1 mg, By Mouth, 2 times a day, PRN as needed for anxiety, # 60 tablet, 2 Refills, Maintenance, 07/28/22 14:24:00 EST, Tablet, [facility] #[id number], 170, cm, 07/06/22 13:11:00 EST, Height Start [...] Sore throat Confirmed Active Underweight Confirmed Active 37681 CTA: IMPRESSION: 1. 70% stenosis of the [...] Team Personnel Name: Kevyn Mckeon MD [facility] Primary Care Physician Member Role: PCP Address: Address: [address] [place] [address]- Care Team Related Persons Name: MARYCRUZ MANN Name: NO, NONE Name: DAVID KRAFT Address: home [address] [facility] [address] [place] [address]
--- OUTSIDE RECORDS SUMMARY | 2023-03-13 14:22 | XMS_ITS | Continuity of Care Document ---
Author Name Unknown Organization [facility] Bryson lt Address [address] [place] [address]- Care Team Providers Care Route Relief Driver Name Role Phone Mike HEATH, Kevyn Gaytan Primary Care Physician [place] [facility] [place] 04[place]30/21 [facility] Adult [address] [place] [address]- Allergies, Adverse Reactions, Alerts Substance Reaction Severity [...] vaccine 3 07/03/00 Recorded 1Result Comment: [facility] [id number] 2Location History: Dr. Lao 3Location History: Dr. [...] tablet, 3 Refills, Maintenance, 02/23/21 11:22:00 EDT, [facility], 170, cm, 02/01/21 12:54:00 EDT, Height Start Date: 02/23/21 Status: Ordered azelastine 137 mcg/inh (0.1%) nasal spray 2 sprays, Nares, Both, Daily, PRN Other Allergies, # 30 mL, 2 Refills, Maintenance, 11/23/20 16:34:00 EDT, [place], [facility] #[id number], Partial fill upon patient request if the prescription is for a schedule II opioid drug., 2 sprays Nares, B... Start Date: 11/23/20 Status: Ordered dicyclomine 10 mg oral capsule 2 capsule = 20 mg, By Mouth, 3 times a day, # 180 capsule, 5 Refills, Maintenance, 07/06/20 17:01:00 EST, [facility] #[id number], 170, cm, 05/11/20 13:39:00 EST, Height Start Date: 07/06/20 Status: Ordered ibuprofen 800 mg oral tablet 800 mg, 1, tablet, By Mouth, 2 times a day, # 270 tablet, Refills 1, Tot. Refills 1, Acute 05/19/2117:45:00 EST, 11/16/20 17:32:00 EDT, Route to Pharmacy Electronically, [facility] #[id number],Partial fill upon patient request if the prescripti... Start Date: 11/16/20 Stop Date: 05/19/21 Status: Ordered lidocaine 5% topical film 1 patch, Topically, Daily, PRN Pain , Mild, remove after 12 hours, # 5 patch, 0 Refills, Maintenance, 01/18/21 13:10:00 EDT, [place], [facility] #[id number], Partial fill upon patient request if the [...] ml) bottles pre-mixed. Please call pt for cherry picker operator., Compound Start Date: 04/16/19 Status: Ordered Redi-Cat-(2) two pre-mixed 450 ml bottles Redi-Cat-(2) two pre-mixed 450 ml bottles, See Instructions, # 2 bottle, Refills 0, Tot. Refills 0,Maintenance, Follow instructions included per PCP office., 04/16/19 15:40:53 EDT, 2 (450 ml) bottles pre-mixed. Please call pt for cherry picker operator., Compound Start Date: 04/16/19 Status: Ordered sertraline [...] and foot rests, HIPOLITO 99MOS send to [facility], 04/12/21 16:40:00 E... Start Date: 04/12/21 Status: Ordered Vitamin D3 1000 intl units [...]
--- OUTSIDE RECORDS SUMMARY | 2023-03-13 14:22 | XMS_ITS | Continuity of Care Document ---
Author Name Unknown Organization [facility] Bryson lt Address [address] [place] [address]- Care Team Providers Care [employer] Name Role Phone Mike HEATH, Kevyn Gaytan Primary Care Physician [place] [facility] [place]21 [facility] Adult [address] [place] [address]- Allergies, Adverse Reactions, Alerts Substance Reaction Severity [...] 07/03/00 Recorded 1Result Comment: [facility] [id number] 2Location History: Dr. Lao 3Location History: Dr. [...] 0 Refills, Maintenance, 05/10/21 14:43:00 EST, [place], [facility] #[id number], Partial fill upon patient request if the prescription is for a schedule II opioid drug., 170, cm, 05/03/21 13:38:00 EDT,... Start Date: 05/10/21 Status: Ordered ibuprofen 800 mg oral tablet 800 mg, 1, tablet, By Mouth, 2 times a day, # 270 tablet, Refills 1, Tot. Refills 1, Acute 05/19/2117:45:00 EST, 11/16/20 17:32:00 EDT, Route to Pharmacy Electronically, [facility] #[id number],Partial fill upon patient request if the prescripti... Start Date: 11/16/20 Stop Date: 05/19/21 Status: Ordered lisinopril 20 mg oral tablet See Instructions, TAKE 1 TABLET DAILY, # 90 Unknown, Refills 0, Maintenance, Instructions Replace Required Details, Route to Pharmacy Electronically, [facility], 170, cm, 12/10/20 13:41:00 EDT, Height [...] and foot rests, HIPOLITO 99MOS send to [facility], 04/12/21 16:40:00 E... Start Date: 04/12/21 [...]
--- OUTSIDE RECORDS SUMMARY | 2023-03-13 14:22 | XMS_ITS | Continuity of Care Document ---
Author Name Unknown Organization [facility] ter Address [address] [place] [id number]- Care Team Providers Care Oil [employer] Gas Exploration Technician Name Role Phone Mike HEATH, Kevyn Gaytan Primary Care Physician [phone] [place] [facility] [place] - 01/29/[address] [address]- Encounter Diagnosis Chest pain(Final) - 01/29/23 Discharge Disposition: A-D/C Home Attending Physician: Tania Boogie DO Admitting Physician: Tania Boogie DO Referring Physician: Not on Staff, Referring MD Allergies, Adverse Reactions, Alerts Substance Reaction Severity Status sulfa drugs Active Flonase Active Demerol HCl Active Percocet 5/325 Active ZyrTEC rash Active Immunizations Given and Recorded Vaccine Date Status Refusal Reason pneumococcal 23-valent vaccine 1 07/06/22 Given pneumococcal 23-valent vaccine 2 07/03/00 Recorded Influenza Virus Vaccine (oldterm) 3 04/06/22 Recor ded Influenza Virus Vaccine (oldterm) 03/02/20 Recorde d [id number] 12y+ bivalent booster vax 4 04/06/22 Recorded [id number] 12y+ bivalent booster vax 5 04/06/22 Recorded [...] tetanus/diphtheria/pertussis, acel(Tdap) 8 07/03/08 Recorded 1Result Comment: [id number] 2Location History: Dr. Lao 3Result Comment: Nida DUPLICATE 4Result Comment: Nida 5Result Comment: DUPLICATE 6Result Comment: NIDA 7Result Comment: [facility] [id number] 8Location History: Dr. Lao Medications amLODIPine 10 mg oral tablet 10 mg, 1, tablet, By Mouth, Daily, Increase in dose, # 90 tablet, Refills 3, Tot. Refills 3, Maintenance, 04/27/22 13:48:00 EDT, Route to Pharmacy Electronically, [facility] #[id number], Partialfill upon patient request if the prescription is fo... Start Date: 04/27/22 Status: Ordered dicyclomine 20 mg oral tablet 1 tablet = 20 mg, By Mouth, 4 times a day, PRN spasm, Increase in dose, # 56 tablet, 5 Refills, Maintenance, 10/19/22 13:40:00 EDT, Tablet, [facility] #[id number], Partial fill upon patient request if the prescription is for a schedule II opioid... Start Date: 10/19/22 Stop Date: 01/11/23 Status: Ordered duloxetine 30 mg oral enteric coated capsule 1 capsule = 30 mg, By Mouth, 2 times a day, Increase in dose, # 180 capsule, 3 Refills, Maintenance, 04/27/22 13:42:00 EDT, [facility] #[id number], Partial fill upon patient request if the [...] 01/26/23 12:33:00 EDT, Route to Pharmacy Electronically, [facility] #[id number], 165, cm, 01/11/23 11:25:00 EDT, Height Start Date: 01/26/23 Stop Date: 01/21/24 Status: Ordered LORazepam 1 mg oral tablet 1 tablet = 1 mg, By Mouth, 2 times a day, PRN as needed for anxiety, # 60 tablet, 2 Refills, Maintenance, 11/06/22 6:34:00 EDT, Tablet, [email or web address] #[id number], 170, cm, 10/19/22 13:31:00 EDT, Height Start Date: 11/06/22 Status: Ordered LORazepam 1 mg oral tablet 1 tablet = 1 mg, By Mouth, 3 times a day, 0 Refills, Maintenance, 10/19/22 11:20:00 EDT, Partial fill upon patient request if the prescription is for a schedule II opioid drug. Start Date: 10/19/22 Status: [facility]dered [facility] Refills 0, Maintenance, probiotic, 10/19/22 13:25:00 EDT, Supply Start Date: 10/19/22 Status: Ordered sertraline 50 mg oral tablet 1 tablet, By Mouth, 2 times a day, # 180 tablet, 3 Refills, Maintenance, 09/22/22 5:18:00 EDT, [facility]), 170, cm, 09/07/22 11:31:00 EST, [...] claudication 1 Confirmed Active Underweight Confirmed Active 38757 CTA: IMPRESSION: 1. 70% stenosis of the [...] in the feet due to poor opacification. Results Radiology Reports * Exam Date Time Procedure Performing Provider Status 01/29/23 12:08 AM Chest 2 Views Fronta l and Lat Zo Mendes; Auth (Verified) Notes: (Chest 2 Views Frontal and Lat) Reason For Exam: Shortness of Breath RESULT: Chest 2 Views Frontal and Lat Chest 2 Views Frontal and Lat INDICATION: Reason: Shortness of Breath; Clinical Question(s): CHF COMPARISON: 09/07/2022 FINDINGS: LINES AND TUBES: None. LUNGS AND PLEURA: No evidence of confluent airspace opacity, lung consolidation or pulmonary vascular redistribution. Costophrenic sulci are maintained. No evidence of pneumothorax. HEART, MEDIASTINUM AND DEEPTI: Cardiomediastinal silhouette is within normal limits in size. Retrocardiac opacity in keeping with hiatal hernia, similar in appearance to the prior exam. BONES AND SOFT TISSUES: Included skeleton is demineralized appearance. Chronic vertebral compression fracture at the lower thoracic spine and accentuation of normal thoracic kyphosis IMPRESSION: No evidence of active cardiopulmonary process WSN: [id number] Ordering Physician: Herb Palacios Dictated By: Laron Manuel Jr, MD Dictated Date/Time: 01/29/23 5:57 am Reviewed By: Laron Manuel Jr, MD Signed By: Laron Manuel Jr, MD Signed Date/Time: 01/29/23 5:57 am Transcribed By: RON Transcribed Date/Time: 01/29/23 5:55 am Vital Signs Most recent to oldest [Reference Range]: 1 2 3 Height 164.5 cm (01/29/23 3:14 PM) 164.5 cm (01/29/23 1:24 AM) 164.5 cm (01/28/23 10:56 PM) Oxygen Saturation [94-100 %] 99 % (01/29/23 3:14 PM) 99 % (01/29/23 1:45 PM) 100 % (01/29/23 10:35 AM) Pulse Rate [55-90 bpm] 60 bpm (01/29/23 3:14 PM) 67 bpm (01/29/23 1:45 PM) 64 bpm (01/29/23 10:35 AM) Blood Pressure [90-138/55-84 mm Hg] 129/68mm Hg (01/29/23 3:14 PM) 136/82mm Hg (01/29/23 1:45 PM) 143/78mm Hg *H* (01/29/23 10:35 AM) Respiratory Rate [16-30 br/min] 18 br/min (01/29/23 3:14 PM) 18 br/min (01/29/23 1:45 PM) Temperature [96.8-100.4 DegF] 97.9 DegF (01/29/23 10:35 AM) 97.5 DegF (01/29/23 8:13 AM) 97.5 DegF (01/29/23 6:22 AM) Mode of Delivery (Oxygen) Room air (01/29/23 3:14 PM) Room air (01/29/23 1:45 PM) Room air (01/29/23 6:22 AM) Blood pressure sites Arm, left (01/29/23 10:35 AM) Arm, left (01/29/23 8:13 AM) Arm, right (01/29/23 6:22 AM) Temperature Route Oral (01/29/23 10:35 AM) Oral (01/29/23 8:13 AM) Oral (01/29/23 6:22 AM) Dry Weight 45.5 kg (01/29/23 3:14 PM) 45.5 kg (01/29/23 1:24 AM) 45.5 kg (01/28/23 10:56 PM) Dry Weight Obtained Via Patient/family s tated (01/28/23 10:56 PM) Social History Social History Type Response Smoking Status 10 or more cigarette s (1/2 pack or more)/day in last 30 days; Other: Currently smoking about 8-10 cigarettes daily.; entered on: 08/27/19 Sex EKG study * Event Display: ECG 12-Lead Authored Date: Please click on pdf link to open report * Event Display: ECG 12-Lead Authored Date: [id number] Ventricular Rate: 62 BPM Atrial Rate: 62 BPM P-R Interval: 94 ms QRS Duration: 80 ms Q-T Interval: 446 ms QTC Calculation(Bazett): 452 ms P [place]: 52 degrees R [place]: 13 degrees T [place]: 63 degrees Sinus rhythm with short NC with Premature atrial complexes Otherwise normal ECG When compared with ECG of 11-MAY-2020 13:48, Premature atrial complexes are now Present Confirmed by CELSO YOON MD ([id number]) on 01/29/2023 10:33:03 AM [place]: CELSO YOON MD Note * Tania Boogie DO: PERFORM, SIGN, VERIFY Event Display: Patient Education Handout Authored Date: [id number] * Tania Boogie DO: PERFORM Event Display: Patient Education Leaflets Authored Date: [id number] Noncardiac Chest Pain ?? [id number] Noncardiac Chest Pain In most cases, people who come to the emergency room with chest pain don???t have a problem with their heart. Instead, the pain is caused by other conditions. It's important for the healthcare team to be sure you are not having a life-threatening cause for chest pain such as: ??? Heart attack ??? Blood clot in the lungs ??? Collapsed lung ??? Ruptured esophagus ??? Tearing of the aorta Once these major causes have been ruled out, you may have further evaluation for other causes of chest pain. These may be problems with the lungs, muscles, bones, digestive tract, nerves, or mental health. They include: ??? Inflammation around the lungs (pleurisy) ??? Collapsed lung (pneumothorax) ??? Lung inflammation (pleuritis or pneumonitis) ??? Fluid around the lung (pleural effusion) ??? Lung cancer (rare cause of chest pain) ??? Inflamed cartilage between the ribs (costochondritis) ??? Fibromyalgia ??? Rheumatoid arthritis ??? Chest wall strain ??? Reflux ??? Stomach ulcer ??? Spasms of the esophagus ??? Gall stones ??? Gallbladder inflammation ??? Panic or anxiety attacks ??? Emotional distress Your pain doesn???t seem to be coming from your heart. But sometimes the signs of a serious problemtake more time to appear. Continue to watch for the warning signs listed below. Home care Follow these guidelines when caring for yourself at home: ??? Rest today and don't do any strenuousactivity. ??? Take any prescribed medicine as directed. ?? Follow-up care Follow up with your healthcare provider as advised. ?? Call 911 Call 911 if any of these occur: ??? A change in the type of pain: if it feels different, becomes more severe, lasts longer, or begins to spread into your shoulder, arm, neck, jaw or back ??? Shortness of breath or increased pain with breathing ??? Weakness, dizziness, or fainting ??? Rapid heart beat ??? Crushing sensation in your chest ?? When to seek medical advice Call your healthcare provider right away if any of these occur: ??? Cough with dark colored sputum (phlegm) or blood ??? Fever of 100.4??F (38??C) or higher, or as directed by your healthcare provider ??? Swelling, pain or redness in one leg ?? Last Reviewed Date: 2021 ?? 8568-2132 [employer]. All rights reserved. This information is not intended as a substitute for professional medical care. Always follow your healthcare professional's instructions. ?? Patient Care team information Care Team Personnel Name: Mike HEATH, Kevyn Gaytan Position: [facility] Physician - Primary Care Member Role: PCP Address: Address: [address] [place] [address]- Name: Gemini Alfaro Position: [facility] [place] Rib Puller Member Role: Director [employer] Name: *[facility], ED Attending Position: [facility] ED Attendings Patient Name: Tania Boogie DO Position: [facility] Resident Member Role: Admitting Physician Address: Address: [address] [place] [address] [place] [address]- Name: Avila Arthur RN Position: [facility] ED RN W/OE and Tasks Member Role: Patient Care Provider Name: Frantz Rodriguez Position: S ED [facility] Member Role: Patient Care Provider Care Team Related Persons Name: CATY LOCKWOOD Name: TANIA MANN Name: TANIA TORRES Name: NO, NONE Name: DAVID KRAFT Address: [address] [address]
--- OUTSIDE RECORDS SUMMARY | 2023-03-13 14:22 | XMS_ITS | Continuity of Care Document ---
Author Name Unknown Organization [facility] Address [address] [place] [address]- Care Team Providers Care Certified Real Estate Appraiser Name Role Phone Kevyn Mckeon MD Primary Care Physician [phone] Encounter [facility] [place] Date(s): 08/27/19 - 09/03/19 [facility] [address] [place] [address] Attending Physician: Kevyn Mckeon MD Allergies, Adverse [...] Unknown, 0 Refills, Maintenance, 07/23/19 12:38:00 EST, [facility], 170, cm, 05/08/19 10:06:00 EST, Height Start Date: 07/23/19 Status: Ordered dicyclomine 10 mg oral capsule 2 capsule = 20 mg, By Mouth, 3 times a day, # 540 capsule, 1 Refills, Maintenance, 07/19/19 13:00:00 EST, [facility] #[id number], 170, cm, 05/08/19 10:06:00 EST, Height Start [...] anxiety, Fill after 05/21/19, # 180 tablet, 1 Refills, Maintenance, 05/28/19 16:23:17 EST, Tablet Start Date: 05/28/19 Status: Ordered pantoprazole 40 mg oral delayed [...] ml) bottles pre-mixed. Please call pt for rock picker., Compound Start Date: 04/16/19 Status: Ordered Redi-Cat-(2) two pre-mixed 450 ml bottles Redi-Cat-(2) two pre-mixed 450 ml bottles, See Instructions, # 2 bottle, Refills 0, Tot. Refills 0,Maintenance, Follow instructions included per PCP office., 04/16/19 15:40:53 EDT, 2 (450 ml) bottles pre-mixed. Please call pt for rock picker., Compound Start Date: 04/16/19 Status: Ordered [...] oldest [Reference Range]: 1 Height 170 cm (08/27/19 1:59 PM) Weight 51.9 kg (08/27/19 1:59 PM) Oxygen Saturation [94-100 %] 99 % (08/27/19 1:59 PM) Pulse Rate [55-90 bpm] 73 bpm (08/27/19 1:59 PM) Body Mass Index [18.5-24.99] 17.96 *L* (08/27/19 1:59 PM) Blood Pressure [90-138/55-84 mm Hg] 122/ 82mm Hg (08/27/19 1:59 PM) Temperature [96.8-100.4 DegF] 98.2 DegF (08/27/19 1:59 PM) Mode of Delivery (Oxygen) Room air (08/27/19 1:59 PM) Blood pressure sites Arm, left (08/27/19 1:59 PM) Temperature Route Oral (08/27/19 1:59 PM) Weight Obtained Via Standing scale (08/27/19 1:59 PM) Social History Social History Type Response Smoking Status 10 or more cigarette s (1/2 pack or more)/day in last 30 days; Other: Currently smoking about 8-10 cigarettes daily.; entered on: 08/27/19 Sex
--- OUTSIDE RECORDS SUMMARY | 2023-03-13 14:22 | XMS_ITS | Continuity of Care Document ---
Author Name Unknown Organization [facility] ter Address [address] [id number]- Care Team Providers Care Visual Basic .Net Developer Name Role Phone Mike HEATH, Kevyn Gaytan Primary Care Physician Encounter [facility] [place] Date(s): 02/22/23 - 02/24/[address] [address]- Discharge Disposition: A-D/C Home Attending Physician: Gavino Dunlap MD Admitting Physician: Gavino Dunlap MD Referring Physician: Gavino Dunlap MD Allergies, Adverse Reactions, Alerts Substance Reaction Severity Status predniSONE makes you jumpy Active sulfa drugs itchy, red Active Flonase vomiting Active Augmentin ? caused c diff Active Demerol HCl sick to stomach Active Adhesive Bandage use paper tape thin skin bandages cause tears in skin Active Nuts tree nuts - upset stomach Ac tive Pollen Active Percocet 5/325 sick to stomach Active ZyrTEC rash Active Immunizations Given and Recorded Vaccine Date Status Refusal Reason pneumococcal 23-valent vaccine 1 07/06/22 Given pneumococcal 23-valent vaccine 2 07/03/00 Recorded [id number] 12y+ bivalent booster vax 3 04/06/22 Recorded [...] tetanus/diphtheria/pertussis, acel(Tdap) 6 07/03/08 Recorded 1Result Comment: [id number] 2Location History: Dr. Lao 3Result Comment: [place] 4Result Comment: [place] 5Result Comment: [facility] [id number] 6Location History: Dr. Lao Medications acetaminophen 325 mg oral tablet 975 mg, Tablet, By Mouth, 02/24/23 15:00:00 EDT Start Date: 02/24/23 Stop Date: 02/24/23 Status: Completed acetaminophen 325 mg oral tablet 975 mg, By Mouth, 3 times a day, # 12 tablet, Refills 0, Tot. Refills 0, Acute 02/27/23 0:00:00 EDT, 02/24/23 16:21:00 EDT, Route to Pharmacy Electronically, [facility] #[id number], Partial fillupon patient request if the prescription is for a s... Start Date: 02/24/23 Stop Date: 02/27/23 Status: Ordered acetaminophen 500 mg oral tablet 1 tablet [...] 04/27/22 13:48:00 EDT, Route to Pharmacy Electronically, [facility] #[id number], Partialfill upon patient request if the prescription [...] 5 Refills, Maintenance, 10/19/22 13:40:00 EDT, Tablet, [facility] #[id number], Partial fill upon patient request if the prescription is for a schedule II opioid... Start Date: 10/19/22 Stop Date: 01/11/23 Status: Ordered duloxetine 30 mg oral enteric coated capsule 1 capsule = 30 mg, By Mouth, 2 times a day, Increase in dose, # 180 capsule, 3 Refills, Maintenance, 04/27/22 13:42:00 EDT, [facility] #[id number], Partial fill upon patient request if the prescription is for a schedule II opioid drug., 170, cm,... Start Date: 04/27/22 Status: Ordered Esomeprazole 40 mg, Daily at supper, Refills 0, Maintenance, 07/06/22 13:18:00 EST, Partial fill upon patient request if the prescription is for a schedule II opioid drug. Start Date: 07/06/22 Status: Ordered gabapentin 100 mg oral capsule 100 mg, Capsule, By Mouth, 02/24/23 15:00:00 EDT Start Date: 02/24/23 Stop Date: 02/24/23 Status: Completed gabapentin 100 mg oral capsule 100 mg, By Mouth, 3 times a day, # 21 capsule, Refills 0, Tot. Refills 0, Maintenance, 02/24/23 16:21:00 EDT, Route to Pharmacy Electronically, [facility] #[id number], Partial fill upon patient request if the prescription is for a schedule II opi... Start Date: 02/24/23 Stop Date: 03/03/23 Status: Ordered ibuprofen 600 mg oral tablet 600 mg, Tablet, By Mouth, 02/24/23 15:00:00 EDT Start Date: 02/24/23 Stop Date: 02/24/23 Status: Completed ibuprofen 600 mg oral tablet 600 mg, By Mouth, 3 times a day, for 3 days, # 9 tablet, Refills 0, Tot. Refills 0, Acute 02/27/23 16:21:00 EDT, 02/24/23 16:21:00 EDT, Route to Pharmacy Electronically, [facility] #[id number], Partial fill upon patient request if the prescriptio... Start Date: 02/24/23 Stop Date: 02/27/23 Status: Ordered lisinopril 20 mg oral tablet 20 mg, 1, tablet, By Mouth, Daily, for 90 days, # 90 tablet, Refills 3, Tot. Refills 3, Physician Stop 01/21/24 12:33:00 EDT, 01/26/23 12:33:00 EDT, Route to Pharmacy Electronically, [facility] #[id number], 165, cm, 01/11/23 11:25:00 EDT, Height Start Date: 01/26/23 Stop Date: 01/21/24 Status: Ordered sertraline 50 mg oral tablet 1 tablet, By Mouth, 2 times a day, # 180 tablet, 3 Refills, Maintenance, 09/22/22 5:18:00 EDT, [facility]), 170, cm, 09/07/22 11:31:00 EST, Height Start Date: 09/22/22 Status: Ordered traMADol 50 mg oral tablet = 50 mg, By Mouth, Every 6 hours, PRN Pain , Moderate, Please take tylenol and ibuprofen first. Useonly for breakthrough pain, # 18 tablet, 0 Refills, Acute 02/26/23 0:00:00 EDT, 02/24/23 16:21:00 EDT, Tablet, [facility] #[id number], Partial edvin... Start Date: 02/24/23 Stop Date: 02/26/23 Status: Ordered traMADol 50 mg oral tablet 50 mg, Tablet, By Mouth, Every 6 hours, PRN for Pain , Moderate, Routine, 02/23/23 8:39:00 EDT Start Date: 02/23/23 Stop Date: 02/25/23 Status: Discontinued Problem List Condition Confirmation Course Effective Dates [...] claudication 1 Confirmed Active Underweight Confirmed Active 69632 CTA: IMPRESSION: 1. 70% stenosis of the [...] in the feet due to poor opacification. Procedures Procedure Date Related Diagnosis Body Site Status Repair of chronically incarc erated right femoral hernia with mesh 02/22/23 C ompleted Repair of left sided Spigeli an hernia with mesh 02/22/23 Completed Vital Signs Most recent to oldest [Reference Range]: 1 2 3 4 Height 165 cm (02/24/23 3:21 PM) 165 cm (02/24/23 7:36 AM) 165 cm (02/23/23 6:37 PM) Weight 45.4 kg (02/22/23 9:01 AM) 45.4 kg (02/20/23 12:32 PM) Oxygen Saturation [94-100 %] 94 % (02/24/23 4:00 PM) 95 % (02/24/23 3:21 PM) 92 % *L* (02/24/23 7:36 AM) Pulse Rate [55-90 bpm] 66 bpm (02/24/23 3:21 PM) 72 bpm (02/24/23 7:36 AM) 63 bpm (02/24/23 4:00 AM) Body Mass Index [18.5-24.99 kg/m2] 16.68 kg/m2 *L* (02/22/23 9:01 AM) 16.68 kg/m2 *L* (02/20/23 12:32 PM) Blood Pressure [90-138/55-84 mm Hg] 118/55mm Hg (02/24/23 3:21 PM) 122/66mm Hg (02/24/23 7:36 AM) 111/52mm Hg (02/24/23 4:00 AM) Respiratory Rate [16-30 br/min] 18 br/min (02/24/23 5:30 PM) 18 br/min (02/24/23 3:33 PM) 18 br/min (02/24/23 3:33 PM) 18 br/min (02/24/23 3:33 PM) Temperature [96.8-100.4 DegF] 98.4 DegF (02/24/23 7:36 AM) 98.3 DegF (02/24/23 4:00 AM) 98.3 DegF (02/23/23 6:37 PM) Liters per Minute 1 L/min (02/24/23 3:21 PM) 1 L/min (02/24/23 7:36 AM) 1 L/min (02/24/23 4:00 AM) Mode of Delivery (Oxygen) Room air (02/24/23 4:00 PM) Nasal cannula (02/24/23 3:21 PM) Nasal cannula (02/24/23 7:36 AM) Blood pressure sites Arm, right (02/24/23 3:21 PM) Arm, left (02/24/23 4:00 AM) Arm, left (02/23/23 6:37 PM) Temperature Route Oral (02/24/23 7:36 AM) Oral (02/24/23 4:00 AM) Oral (02/23/23 6:37 PM) Dry Weight 43.1 kg (02/22/23 9:01 AM) 45.4 kg (02/20/23 12:32 PM) Weight Obtained Via Patient/family stated (02/20/23 12:32 PM) Dry Weight Obtained Via Patient/family stated (02/20/23 12:32 PM) Social History Social History Type Response [...] Safety Implantable Status Assigning Authority Unknown Unknown [id number] Unknown 11/27/26 Unknown Unknown Active Unknown Procedure Provider Procedure Date Device Type Site Repair Hernia Inguinal Open Gavino Dunlap MD 02/22/23 Un known Abdomen Device Identifier Serial Number Lot or Batch Number Manufacturing Date Expiration Date Distinct Identification Code MRI Safety Implantable Status Assigning Authority Unknown Unknown [id number] Unknown 07/30/27 Unknown Unknown Active Unknown Procedure Provider Procedure Date Device Type Site Repair Hernia Ventral Open Gavino Dunlap MD 02/22/23 Unk nown Abdomen Device Identifier Serial Number Lot or Batch Number Manufacturing Date Expiration Date Distinct Identification Code MRI Safety Implantable Status Assigning Authority Unknown Unknown [id number] Unknown 08/30/24 Unknown Unknown Active Unknown EKG study * Event Display: ECG 12-Lead Authored Date: Please click on pdf link to open report * Event Display: ECG 12-Lead Authored Date: Ventricular Rate: 64 BPM Atrial Rate: 64 BPM P-R Interval: 140 ms QRS Duration: 78 ms Q-T Interval: 424 ms QTC Calculation(Bazett): 437 ms R Lagrange: 66 degrees T Lagrange: 78 degrees Normal sinus rhythm Normal ECG When compared with ECG of 29-JAN-2023 00:22, Premature atrial complexes are no longer Present Confirmed by FLOR PATEL ([id number]) on 02/24/2023 4:18:52 PM [place]: FLOR PATEL [facility] Progress note * Marifer Thomas RN: PERFORM, SIGN, VERIFY Event Display: Progress Note Hospital Authored Date: [id number] Patient: KIESHA PEREZ Age: 72 years Sex: Female : 1950 Associated Diagnoses: None Author: Marifer Thomas RN Findings Pt is pleasant throughout shift, AX4, does endorse pain 10/10 with mobility and increase activity. Scheduled pain meds and prn tramadol given with good effort. pt was able to ambulate in hallway twice today, with PT, did well. pt ambulate with PCT, orginally was on 1 liter supplemental oxygen, but was able to wean off. When ambulating sat at 94% rm. Pt tolerated well. abd surgical incision, CDI with dermabond, in place. Awaiting ride home with f/u approximately 1730 when daughter comes. Problem Related to Alteration in Comfort : Alteration in Comfort/new 02/24/2023 16:00 EDT Alteration in Comfort Related to Surgery Goals & Outcomes: Comfort Pt will report acceptable level of comfort & pain control, Pt will state importance of adhering to pain strategy regime, Pt will demonstrate necessary skills to manage pain, Non-verbal indicators will indicate comfort/pain control Interventions Implemented: Comfort Assess pain using appropriate pain scale/tools, Assess aggravating factors & prevent them accordingly, Assess alleviating factors & promote them accordingly BH Goals/Interventions, Comfort Yes Comfort, Problem Start 02/22/2023 19:00 Reviewed plan with, Comfort Patient Patient Progression, Comfort Pt progressing according to plan Comfort, Problem Ongoing Yes Comment: Comfort education about mobility and surgical incision care . * Sangita HEATH, Elmer: MODIFY, PERFORM Event Display: Progress Note Hospital Authored Date: [id number] Patient: ??KIESHA PEREZ ? Age:??72 Years?Sex:??Female?:??1950?? Subjective NAEO. Still c/o pain although somewhat improved. Had some heartburn last night, given PPI and tums.PT rec rehab, pt states, I'm not going to rehab. ??Issues with O2 sat while ambulating.??Tolerating PO. Physical Exam Vitals & Measurements T:??98.3?F?? HR:??63??(Peripheral)?? RR:??18?? BP:??111/52?? SpO2:??95%?? HT:??165??cm?? WT:??45.4??kg?? BMI:??16.68?? Gen: NAD, lying in bed CV: regular rate Resp: nonlabored on RA Abd: soft, nt, nd, dressings in place with no strikethrough Assessment/Plan Kiesha Perez is a 72F s/p open R inguinal hernia repair and L spigelian hernia repair (NS 02/22). Tolerated the procedure well however is in significant pain 2/2 not wanting to take oxycodone overnight. Will switch her to tramadol and add gabapentin??today. PT recommended rehab however pt is adamant about going home. Will re-eval today and monitor O2 requirement while ambulating. ?? Plan: - tylenol, gabapentin, ibuprofen, tramadol, ice packs for pain. Zofran for nausea. Home ativan - holding amlodidpine for now for hypoTN - regular diet, PPI, tums - voiding - no indication for ABx - PT re-eval today - LVX ?? Discussed with Dr. Dunlap Intake and Output Intake and Output Results?? This visit (24 hour periods starting at 07:00 EDT)? 02/24/23 *?? 02/23/23?? 02/22/23?? Total Summary?Intake mL?? --?? 600?? 1,280.667?Output mL?? --?? 250?? 250?Fluid Balance ?? --?? 350?? 1,030.667?? Intake (3)?Lactated Ringers Injection 1,000 mL mL?? --?? --?? 63.667?Lactated Ringers Injection 500 mL mL?? --?? --?? 500?Oral Fluids mL?? --?? 600?? 717?Total?? --?? 600?? 1,280.667?? Output (1)?Urine Voided mL?? --?? 250?? 250?Total?? --?? 250?? 250?? Counts (4)?Bladder Scan Volume mL?? --?? --?? 287?Oral Fluids mL?? --?? 600?? 717?Urine Count ?? --?? 3?? --?Urine Voided mL?? --?? 250?? 250? * This column has not completed the indicated time period.?? Labs Last 24 Hours No qualifying data available. * Germán HEATH, Gavino: PERFORM Event Display: Progress Note Hospital Authored Date: [id number] Surgery Attending: Patient seen, examined discussed with Dr. Valdes. ??I concur with preceding resident note findings, assessment, and plan of care.?? Ms. Perez will follow-up with me as outpatient. Gavino Dunlap MD * Moses ROBERTO, Ana Ruiz: SIGN, VERIFY, PERFORM Event Display: Progress Note Hospital Authored Date: [id number] Patient: KIESHA PEREZ Age: 72 years Sex: Female : 1950 Associated Diagnoses: None Author: Moses ROBERTO, Ana Ruiz Received patient awake on bed, A&Ox4. Complaining of pain continuous post op pain specially during movement, denies SOB and N/V. With 2 abdominal incision with dermabond, wound is dry and intact.Assisted to bathroom, voided well and ambulated in the hallway. Due medications given. 2100H complaining of heartburn, informed covering provider with orders. EKG done and covering provider seen the result and pantoprazole given. Needs attended. Call de oliveira within reach and bed low, locked and alarm on. Frequent rounding maintained. Nursing care continuous. Findings Problem Related to Alteration in Comfort : Alteration in Comfort/new 02/23/2023 18:00 EDT Alteration in Comfort Related to Surgery Goals & Outcomes: Comfort Pt will report acceptable level of comfort & pain control, Pt will state importance of adhering to pain strategy regime, Pt will demonstrate necessary skills to manage pain, Non-verbal indicators will indicate comfort/pain control Interventions Implemented: Comfort Assess pain using appropriate pain scale/tools, Assess aggravating factors & prevent them accordingly, Assess alleviating factors & promote them accordingly Goals/Interventions, Comfort Yes Comfort, Problem Start 02/22/2023 19:00 Reviewed plan with, Comfort Patient Patient Progression, Comfort Pt progressing according to plan Comfort, Problem Ongoing Yes . Alteration in Gastrointestinal : Alteration in Gastrointestinal Func/new 02/23/2023 18:00 EDT Alteration in GI status Related to Abdominal Surgery Goals & Outcomes, Gastrointestinal Nutritional intake is adequate for metabolic needs Interventions, Gastrointestinal Assess/monitor abdomen for distention, tenderness, Assess/monitor abdominal girth & bowel function, Assess/monitor bowel pattern, bowel sounds, flatus, Assess/monitor number of bowel movements, Assess/monitor color, quantity, quality, consistency of stoo, Assess/monitor pt for nausea, vomiting, Assess/monitor effects of re-hydration, Assess/monitor intake &output, Assess if pt tolerating diet, Collaborate/Consult with Final Inspector Motorcyles; review recommendations, DVT prophylaxis as ordered, Elevate HOB to facilitate lung expansion, prevent aspiration, Establish toileting schedule for patient, Taking PO: Encourage/monitor intake & swallowing ability, Enteral nutrition;check residuals; HOB >30 degrees, Nasogastric to LWS as ordered;care per Standards of Practice, Provide info on community resources for education, support, Provide/encourage oral care ifNPO, Teach Pt/caregiver diet & give copy of dietary instructions, Teach Pt/caregiver on bowel elimination interventions, Teach Pt/caregiver re: importance of bowel regime, Teach Pt/caregiver re: n utritional intake & dietary restrict, Teach/encourage deep breath & cough exercises, Teach/encourage use of incentive spirometer BH Goals/Interventions, Gastrointestinal Yes Gastrointestinal, Problem Start 02/22/2023 18:53 Reviewed plan with, Gastrointestinal Patient Patient Progression, Gastrointestinal Pt progressing according to plan . Discharge Information Rehabilitation Discharge : Rehab Discharge Index 02/23/2023 15:45 EDT Comments on treatment indicated 72-year-old woman who is postoperative day 1from spigelian hernia repair with mesh and repair of chronically incarcerated right femoral hernia withmesh performed by Dr. Jamari Dunlap.PT for bed mobility ,transfer, balance, gait training. Rec Rehabvs home Walker: distance 20-50 Distance pt will ambulate 100ft/RW Full chart review completed Yes Plan of care PT Gait training, Transfer training, Therapeutic exercise, Functional Activities, Balance training Note * Marifer Thomas RN: PERFORM Event Display: Discharge/Transfer Note Hospital Authored Date: Nursing Discharge Note Entered On: 02/24/2023 18:13 EDT Performed On: 02/24/2023 17:30 EDT by Marifer Thomas RN Nursing Discharge Note 2 Discharge Time : 02/24/2023 17:30 EDT Discharge Level of Care at Discharge : Homehealth/VNA Discharge VNA/Hospice/Home Care(v001) : [facility] [phone] Patient Left Unit Via : Wheelchair Patient Accompanied Off Unit with : Responsible adult DC Instructions Provided & Signed by Pt : Yes Patient Understands D/C Instructions : Yes Patient Instructions Discharge Signed : Yes Did Pt have Specialty Bed or Wound Vac : No Thomas PARDEEP, Marifer - 02/24/2023 18:12 EDT * Keisha HEATH, Rosa Bernal: PERFORM Event Display: Discharge/Transfer Note Hospital Authored Date: [id number] Patient: ??KIESHA PEREZ ? Age:??72 Years?Sex:??Female?:??1950?? Admit Date Admission Date: 02/22/2023 Discharge Date 02/24/2023 Discharge Diagnoses Elective surgery, 02/22/2023 Left-sided abdominal wall hernia, 02/22/2023 Right femoral hernia, 02/22/2023 Hospital Course Kiesha Perez is a 72F PMH COPD, anxiety, s/p open R inguinal hernia repair and L spigelian hernia repair?? with Dr. Dunlap on 02/22/23. The patient tolerated the procedure well and there were no complications. The patient was admitted overnight for close monitoring. PT evaluated the patient, and initially recommended discharge to rehab. However, on re-evaluation, they cleared the patient for discharge to home with services. Her pain control was optimized and her oxygen supplementation was weaned.The patient tolerated a regular diet and was voiding without issues. On POD2, the patient was clearedto be discharged to home with services. She has been prescribed the medications listed below. She sh ould follow up with Dr. Dunlap as previously scheduled. Objective/Physical Exam on Day of Discharge Vitals & Measurements T:??98.4?F?? HR:??66??(Peripheral)?? RR:??18?? RR:??18?? RR:??18?? BP:??118/55?? SpO2:??94%?? HT:??165??cm?? WT:??45.4??kg?? BMI:??16.68?? Future Appointments Monday 11:10 AM EDT ?? With: Germán HEATH, [place] Where: [facility] [address] [place] [address] Drive [address] [place] [address]- Status: Pending Home Health Face to Face *Denotes mandatory perry ?? *I certify that this patient is under my care and that I or an allowed non- physician working with me had a face to face encounter with the patient on this date:??02/24/2023 16:32 ?? *The encounter with the patient was in whole, or in part, for the following medical condition, which is the primary diagnosis(es) for home health care:??Elective surgery (Z41.9) Left-sided abdominal wall hernia (K43.9) Right femoral hernia (K41.90) ? *Select the indications for the discipline/s that are being arranged for this patient. Nursing (select all that apply): [_] None [_] Medication management (reconciliation, teaching)?? [_] Chronic disease management?? [x] Wound care and treatment?? [x] Home safety evaluation [_] Administer SQ/IM/IV medications?? [_] Cath care?? [_] Drain care?? [_] Trach or GT care?? Other _ Occupation Therapy (select all that apply): [_] None [_] ADL Management [_] Fall prevention training [_] Energy conservation [_] Cognitive training Other _ Physical Therapy (select all that apply): [_] None [x] Functional mobility training [x] Home exercise program to strengthen [x] Increase ROM?? [x] Falls prevention training [_] Home maintenance program for chronic disease Other _ Speech Therapy (select all that apply): [_] None [_] Swallow evaluation and training [_] Speech and language training [_] Cognitive training to process, organize, and/or recall information Other _ ? *Homebound due to (select all that apply): [x] Inability to leave home without assistance/supervision [x] Inability to ambulate without assistance [x] Pain [_] Decreased strength and endurance [_] Unsteady gait [_] Severe SOB and fatigue [_] Impaired transfers [_] Inability to negotiate stairs [_] Limited weight bearing [_] Mental status change? *Physician Signature:??Dr. Dunlap ?? *By signing this, I certify that I have personally evaluated the patient and agree with the findings and recommendations as documented above. ? althFTF Inpatient Medications Medications (17) Active SCHEDULED: (12) Acetaminophen 325 mg Tablet (acetaminophen 325 mg oral tablet) ??975 mg, By Mouth, 3 times a day ceFAZolin 1 Gm Inj (ceFAZolin Inj *) ??1 Gm, IV Push, Once Docusate Sodium 100 mg Capsule (Colace sodium 100 mg oral capsule) ??100 mg 1 capsule, By Mouth, 2 times a day Duloxetine 30 mg Capsule (Duloxetine) ??30 mg, By Mouth, 2 times a day Enoxaparin 30 mg Inj (Enoxaparin Inj) ??30 mg 0.3 mL, Subcutaneous Injection, Every 24 hours Gabapentin 100 mg Capsule (gabapentin 100 mg oral capsule) ??100 mg, By Mouth, 3 times a day Ibuprofen 600 mg Tablet (ibuprofen 600 mg oral tablet) ??600 mg, By Mouth, 3 times a day Lidocaine 5% Topical Patch (Lidocaine 5% Patch) ??2 each, Topically, Daily Lorazepam 1 mg Tablet (Ativan 1 mg oral tablet) ??1 mg, By Mouth, 2 times a day Pantoprazole 20 mg EC Tablet (pantoprazole 20 mg oral delayed release tablet) ??20 mg, By Mouth, Daily Remove Patch (Remove Lidocaine Patch) ??2 each, Topically, Every 12 hours Sertraline 50 mg Tablet (sertraline 50 mg oral tablet) ??50 mg, By Mouth, 2 times a day CONTINUOUS: (0) PRN: (5) Albuterol/Ipratropium Inhalation Krista 3mL (Duoneb Inhalation Solution) ??1 vials, BAND Nebulizer, Every 4 hours Calcium Carbonate 500 mg (Calcium 200 mg) Chewable Tablet (Tums 500 mg oral tablet, chewable) ??1,000 mg 2 tablet, Chew, Every 4 hours nalOXONE ??400mcg/mL Inj (nalOXONE Inj) ??0.04 mg 0.1 mL, IV Push, Every 5 minutes Ondansetron 2mg/mL Inj (2mL Vial) (Zofran Inj) ??4 mg, IV Push, Every 6 hours TraMADOL 50 mg Tablet (traMADol 50 mg oral tablet) ??50 mg, By Mouth, Every 6 hours Discharge Medications Acetaminophen (acetaminophen 500 mg oral tablet)?1?tab(s)?500?Milligram?By Mouth?2 times a day Acetaminophen (acetaminophen 325 mg oral tablet)?975?Milligram?By Mouth?3 times a day Amlodipine (amLODIPine 10 mg oral tablet)?10?Milligram?1?tablet?By Mouth?Daily?Increase in dose Dicyclomine (dicyclomine 20 mg oral tablet)?1?tab(s)?20?Milligram?By Mouth?4 times a day?as needed?spasm?for 14?Days?Increase in dose Duloxetine (duloxetine 30 mg oral enteric coated capsule)?1?capsule?30?Milligram?By Mouth?2 times a day?Increase in dose Esomeprazole?40?Milligram?Daily at supper Gabapentin (gabapentin 100 mg oral capsule)?100?Milligram?By Mouth?3 times a day?for7?Days Ibuprofen (ibuprofen 600 mg oral tablet)?600?Milligram?By Mouth?3 times a day?for 3?Days Lisinopril (lisinopril 20 mg oral tablet)?20?Milligram?1?tablet?By Mouth?Daily?for 90?Days Lorazepam (Ativan 1 mg oral tablet)?1?tab(s)?1?Milligram?By Mouth?2 times a day Sertraline (sertraline 50 mg oral tablet)?1?tab(s)?By Mouth?2 times a day Tramadol (traMADol 50 mg oral tablet)?50?Milligram?By Mouth?Every 6 hours?as needed?Pain , Moderate?Please take tylenol and ibuprofen first. Use only for breakthrough pain Labs Last 24 Hours BLOOD COUNT & DIFF ? Event Name?? Event Result?? Date/Time?? WBC 9 k/mm3 02/24/23 09:00:00 RBC 2.75 m/mm3??Low 02/24/23 09:00:00 Hgb 10.8 Gm/dL??Low 02/24/23 09:00:00 Hct 29.6 %??Low 02/24/23 09:00:00 MCV 107.6 femtoliters??High 02/24/23 09:00:00 MCH 39.3 pg??High 02/24/23 09:00:00 MCHC 36.5 g/dL 02/24/23 09:00:00 Platelet Count 216 k/mm3 02/24/23 09:00:00 MPV 11.3 femtoliters 02/24/23 09:00:00 Nucleated RBC (Automated) 0 #/100 WBC'S 02/24/23 09:00:00 ? Patient Instructions If you develop fever, chills, increased pain, nausea, vomiting, bleeding, or increased redness or pus around the wound please call the surgery office at . A narcotic was prescribed to help reduce your pain. Take only as needed for your pain; you may choose to fill the prescription in a lesser amount. When taking opioids, there is an increase chance of abuse and/or overdose. Other side effects/complications include nausea, vomiting, difficulty breathing, sedation and constipation. A stool softener was also prescribed to help prevent constipation. Please take medications as prescribed and do not drive while on narcotic medications. Refer to handout for more information. ?You may continue to take Tylenol 975mg, ibuprofen 600mg and gabapentin 100mg 3x/day??for pain control if needed. Please only use Tramadol as prescribed for breakthrough pain. ?Incisions are closed with absorbable sutures and overlying??skin glue. The??skin glue will fall off over time. ?If you have any questions, please call the surgery office at . ?Please call your Primary Care Provider within 1 week for post hospital follow up and reviewof your medications. ?Activity Instructions ?-No heavy lifting >10 lbs ?-Increase activity as tolerated ?-Encourage coughing and deep breathing, use of incentive spirometer ?-No tub baths until incision(s) has/have healed ?-May shower 48 hours after surgery ?-No driving until off narcotics and cleared by Surgery? When to call your healthcare provider: ?? Call your healthcare provider if you have any of the below: Fever of 100.4??F ( 38??C) or higher, or Chills Persistent Nausea or Vomiting Discharge or drainage from the incision sites Redness or skin changes at incision sites Persistent pain not relieved with pain medications.? * Gavino Dunlap MD: PERFORM Event Display: Discharge/Transfer Note Hospital Authored Date: [id number] Surgery Attending: Patient discussed with Dr. Valdes. ??I concur with preceding resident note findings, assessment, and plan of care. See progress note today's date. Gavino Dunlap MD * Martha ROBERTO, Marifer: PERFORM Event Display: Patient Education/Instruction Authored Date: [id number] Inpatient Adult Discharge Instructions [address] [address] Name: KIESHA PEREZ : 1950 Visit: 02/22/2023 08:54:00 Current Date: 02/24/2023 17:02 Account: [id number] Inpatient Adult Discharge Instructions We would like to thank you for allowing us to assist you with your healthcare needs. The following includes patient education materials and information regarding your injury/illness. Our entire staffstrives to provide an excellent experience for our patients and their families. PLEASE ENSURE YOU FOLLOW-UP PER THE INSTRUCTIONS BELOW! ?? YOUR OPINION IS IMPORTANT TO US! Please complete the survey you may receive by mail or email. Your feedback will be used to make improvements to the healthcare experiences of our patients and their families. Surveys are administered by [employer]. ?? If further treatment with your primary care physician or another doctor is recommended, it is important for you to keep the appointment. Call your primary care physician or return to the Emergency Department immediately if your condition worsens, fails to improve, or new symptoms develop. If you need to find a doctor, you can call [facility] for a referral at [phone] or toll free at [phone] ([phone]) or log in to [email or web address].. ?? You can view and manage your care through the patient portal or by using a health care remy of your choosing. [employer] is a website that allows you to securely view your medical information including your hospital discharge summary, office visit summaries, medications and follow-up visits. You can also request appointments, renew medications, and request access to your medical information using a health care remy of your choosing, or just ask a question. You can enroll at [email or web address] or register during your next office visit. You have been discharged from [facility], Patient Care Unit: S1. If you have any questions regarding these instructions after you leave, please call us and we will be happy to assist you. [facility] Your Care Team Attending Physician Germán HEATH, Gavino Consulting Providers Navi Blackmon Discharging Providers Keisha HEATH, Rosa Bernal Reason for Admission RIGHT INGUINAL AND VENTRAL HERNIA [facility]N 23 Your Diagnosis Elective surgery Right femoral hernia Left-sided abdominal wall hernia Tests Performed Below is a partial list of the tests performed during your hospitalization. You may have had other tests and procedures not included in this list. Please discuss all test results with your provider. COMPLETE BLOOD COUNT HOLD GEL TUBE Primary Care Provider Kevyn Mckeon MD Advance Directive Health Care Proxy on File Yes - Health Care Proxy Discharge Vitals Temperature: 98.4 DegF Height: 165 cm Pulse Rate: 66 bpm Weight: 45.4 kg Respiratory Rate: 18 br/min Body Mass Index:??16.68 kg/m2??Low Respiratory Rate: 18 br/min Body surface area: 1.44 Respiratory Rate: 18 br/min ?? Systolic Blood Pressure: 118 mm Hg ?? Diastolic Blood Pressure: 55 mm Hg ?? Oxygen Saturation: 94 % ?? Studies Pending All tests and labs ordered during this hospital stay have been completed unless listed below. Please discuss all pending results with your provider listed above in these instructions. ?? No incomplete studies found What to do next Instructions From Your Doctor If you develop fever, chills, increased pain, nausea, vomiting, bleeding, or increased redness or pus around the wound please call the surgery office at . A narcotic was prescribed to help reduce your pain. Take only as needed for your pain; you may choose to fill the prescription in a lesser amount. When taking opioids, there is an increase chance of abuse and/or overdose. Other side effects/complications include nausea, vomiting, difficulty breathing, sedation and constipation. A stool softener was also prescribed to help prevent constipation. Please take medications as prescribed and do not drive while on narcotic medications. Refer to handout for more information. ?You may continue to take Tylenol 975mg, ibuprofen 600mg and gabapentin 100mg 3x/day??for pain control if needed. Please only use Tramadol as prescribed for breakthrough pain. ?Incisions are closed with absorbable sutures and overlying??skin glue. The??skin glue will fall off over time. ?If you have any questions, please call the surgery office at . ?Please call your Primary Care Provider within 1 week for post hospital follow up and reviewof your medications. ?Activity Instructions ?-No heavy lifting >10 lbs ?-Increase activity as tolerated ?-Encourage coughing and deep breathing, use of incentive spirometer ?-No tub baths until incision(s) has/have healed ?-May shower 48 hours after surgery ?-No driving until off narcotics and cleared by Surgery? When to call your healthcare provider: ?? Call your healthcare provider if you have any of the below: Fever of 100.4??F ( 38??C) or higher, or Chills Persistent Nausea or Vomiting Discharge or drainage from the incision sites Redness or skin changes at incision sites Persistent pain not relieved with pain medications.? Discharge Orders Scheduled Follow-Up Appointments Monday 11:10 AM EDT ?? With: Gavino Dunlap MD Where: [facility] General Surgery [address] [place] [address] Drive [address] [place] [address]- Status: Pending Discharge Medications KIESHA PEREZ :1950 Visit Date:02/22/2023 Medications: Please continue your medications until treatment is completed or stopped by your provider. Medications not listed below should be discontinued. Discuss any questions related to medications with your provider. What How Much When Instructions Next Dose New Gabapentin (gabapentin 100 mg oral capsule) 100 Milligram Oral 3 times a day Duration: 7 Days Pickup at [facility] #51571 tonight New Ibuprofen (ibuprofen 600 mg oral tablet) 600 Milligram Oral 3 times a day Duration: 3 Days Pickup at [facility] #53657 tonight New Tramadol (traMADol 50 mg oral tablet) 50 Milligram Oral Every 6 hours as needed for Pain , Moderate Please take tylenol and ibuprofen first. Use only for breakthrough pain ?? Pickup at [facility] #62412 last given at 1700, can have it every 6 hrs Changed Acetaminophen (acetaminophen 325 mg oral tablet) 975 Milligram Oral 3 times a day Pickup at [facility] #69711 tonight Changed Acetaminophen (acetaminophen 500 mg oral tablet) 1 tab(s) Oral Twice a day Changed Esomeprazole 40 Milligram Daily at supper tomorrow Unchanged Amlodipine (amLODIPine 10 mg oral tablet) 1 tab(s) Oral Daily Increase in dose ?? tomorrow Unchanged Dicyclomine (dicyclomine 20 mg oral tablet) 1 tab(s) Oral 4 times a day as needed for spasm Duration: 14 Days Increase in dose ?? as needed for spasm Unchanged Duloxetine (duloxetine 30 mg oral enteric coated capsule) 1 capsule Oral Twice a day Increase in dose ?? tomorrow Unchanged Lisinopril (lisinopril 20 mg oral tablet) 1 tab(s) Oral Daily Duration: 90 Days tomorrow Unchanged Lorazepam (Ativan 1 mg oral tablet) 1 tab(s) Oral Twice a day tonight Unchanged Sertraline (sertraline 50 mg oral tablet) 1 tab(s) Oral Twice a day tonight Pharmacy Information [facility] #[id number]: [address], [place] [id number] [phone] Test Results Below is a partial list of the most recent Laboratory test results done prior to this discharge. You may have had other tests and procedures not included in this list. Please discuss all test resultswith your provider. COMPLETE BLOOD COUNT (02/24/2023) ???WBC - 9.0 k/mm3???RBC - 2.75 m/mm3???Hgb - 10.8 Gm/dL???Hct - 29.6 %???MCV - 107.6 femtoliters???MCH - 39.3 pg???MCHC - 36.5 g/dL???Platelet Count - 216 k/mm3???RDW-SD - 57.9 femtoliters???MPV - 11.3 femtoliters???Nucleated RBC (Automated) - 0.0 #/100 WBC'S???Abs. NRBC - 0.0 k/mm3 HOLD GEL TUBE (02/24/2023) ???Hold Gel Top - SPECIMEN DISCARDED AFTER 1 WEEK Allergies (NKA means No Known Allergies) Adhesive Bandage??(use paper tape, thin skin bandages cause tears in skin) Augmentin??(? caused c diff) Demerol HCl??(sick to stomach) Flonase??(vomiting) Nuts??(tree nuts - upset stomach) Percocet 5/325??(sick to stomach) Pollen ZyrTEC??(rash) predniSONE??(makes you jumpy) sulfa drugs??(itchy, red) Problems Active Problems??(13) Allergic rhinitis?? Oliveira's esophagus?? Chronic obstructive pulmonary disease?? Depression, major, single episode, in partial remission?? Essential hypertension?? IBS (irritable bowel syndrome) with diarrhea?? Left-sided abdominal wall hernia?? Neuropathy of left lower extremity?? Osteoarthritis of both hands?? Osteoporosis?? PVD (peripheral vascular disease) with claudication?? Right femoral hernia?? Underweight?? Education Materials Below is the list of Educational Leaflet Providered with your Discharge Instructions. Valuables and Belongings I fully understand and agree that [facility] accepts no responsibility for all my personal property including clothing, toilet articles, radios, jewelry, dentures, hearing aids, rings, money, or any other property that is in my possession or is brought to me after admission. I understand certain valuables may be placed in a hospital safe for a short period of time. I understand that the hospital is not liable for loss or damage due to accident, fire, or other natural occurrence while said property is in the safe. I accept full responsibility for any personal property that I keep with me, and will not hold the hospital responsible in case of loss or disappearance. I acknowledge that i have been encouraged to send valuables and belongings home. ?? Review of Valuable and Belonging List: With patient Disposition of Belongings: Valuables Locked Date for Pt to Sign Valuables/Belongings: 02/22/23 09:53:00 ?? Valuables & Belongings ?? Clothes Electronic devices Jewelry Monetary Items Personal devices Miscellaneous Medications (Valuables) Valuables at Bedside Jacket, Shirt, Shoes, Undergarments, Other: skirt ? Purse, Other: ID, insurance card ? Valuables Sent Home ? Valuables Sent to Security ? Other Discharge Information ?? Wound Assessment?? Wound Assessment?? Wound Location I: Abdomen, left lower Wound Type I: Incision Wound I, Present on Admission: No Wound Location II: Abdomen, right lower Wound Type II: Incision Wound II, Present on Admission: No ? Case Management Discharge Plan?? Discharge Plan?? Discharge Agency Information?? Discharge Level of Care at Discharge: Homehealth/VNA Name of Agency #1: [facility] VNA/Hospice Discharge Rx Program: Discharge Prescription Program Agency Cardiac Care Nurse #1: Intake Discharge Transportation Arranged: Family Service Categories #1: Physical Therapy, Longterm Mode of Transportation Arranged: Car Service Comments #1: [facility] [phone] will provide your care after discharge. If any questions or concerns please contact the agency directly. Discharge VNA/Hospice/Home Care: [facility] Visiting Nurse [facility] [phone] ? Pulmonary Rehab Status?? Pulmonary Rehab Discharge Status?? Respiratory Rate: 18 br/min Respiratory Rate: 18 br/min Respiratory Rate: 18 br/min ? Common Emergency Awareness Tips IS IT A STROKE? Act FAST and Check for these signs: FACE Does the face look uneven? ARM Does one arm drift down? SPEECH Does their speech sound strange? TIME Call at any sign of stroke ?? Heart Attack Signs Chest discomfort: Most heart attacks involve discomfort in the center of the chest and lasts more than a few minutes, or goes away and comes back. It can feel like uncomfortable pressure, squeezing, fullness or pain. Discomfort in upper body: Symptoms can include pain or discomfort in one or both arms, back, neck, jaw or stomach. Shortness of breath: With or without discomfort. Other signs: Breaking out in a cold sweat, nausea, or lightheaded. Remember, MINUTES DO MATTER. If you experience any of these heart attack warning signs, call to get immediate medical attention! ?? Smoking can increase your chances of developing chronic health problems and can cause harmful effects to other family members in your house. If you smoke, you are strongly encouraged to quit. Please call [facility] [employer] [facility] at [phone] or [phone] ([phone]) or log in to [email or web address] for referrals to smoking cessation programs. ?? 988 Suicide & Crisis Lifeline is available 23/01 if you or someone you know needs to find a reason to keep living. By calling 298 you'll be connected to a skilled, trained counselor at a crisis center in your area. INPATIENT DISCHARGE INSTRUCTIONS SIGNATURE PAGE KIESHA PEREZ Location:[facility] Registration Date and Time:02/22/2023 08:54 EDT Primary Care Physician: Kevyn Mckeon MD, Attending Physician: Germán HEATH, Gavino, I KIESHA PEREZ, have received the above patient education materials/instructions and have verbalized understanding. If ambulance or transport services are being used I further acknowledge being given achoice of service. ?? If you need to contact me, please call me at this number: . Patient/Material Coordinator Name: Patient/Material Coordinator Signature: Relationship to Patient: Witness Name/Signature: Date: Patient Care team information Care Team Personnel Name: Beni Doshi RN Position: [facility] RN Member Role: Primary Care Nurse Name: Ronald Heath RN Position: [facility] RN Member Role: Primary Care Nurse Name: Kevyn Mckeon MD Position: [facility] Physician - Primary Care Member Role: PCP Address: Address: [address] [place] [id number] Name: Melissa Chau RN Position: [facility] RN Member Role: Primary Care Nurse Name: Gemini Alfaro Position: [facility] Gas Desulfurizer Member Role: Dock Superintendent Name: Marifer Thomas RN Position: [facility] RN Member Role: Primary Care Nurse Name: Ana Lopes RN Position: [facility] RN Member Role: Primary Care Nurse Care Team Related Persons Name: CATY LOCKWOOD Name: MARYCRUZ MANN Name: MARYCRUZ TORRES Name: NO, NONE Name: DAVID PEREZ Address: [address] [address]
--- OUTSIDE RECORDS SUMMARY | 2023-03-13 14:22 | XMS_ITS | Continuity of Care Document ---
Author Name Unknown Organization [facility] ter Address [address] [place] [address]- Care Team Providers Care Painter Apprentice Name Role Phone Mike HEATH, Kevyn Gayatn Primary Care Physician [phone] Encounter [facility] Date(s): 01/17/21 - 01/18/[address] [address]- Discharge Disposition: A-D/C Home Attending Physician: Coretta Ludwig MD Admitting Physician: Coretta Ludwig MD Referring Physician: Not on Staff, Referring MD [...] 23-valent vaccine 3 07/03/00 Recorded 1Result Comment: [facility] [id number] 2Location History: Dr. Lao 3Location History: Dr. [...] mL, 2 Refills, Maintenance, 11/23/20 16:34:00 EDT, [id number], Partial fill upon patient request if the prescription is for a schedule II opioid drug., 2 sprays Nares, B... Start Date: 11/23/20 Status: Ordered dicyclomine 10 mg oral capsule 2 capsule = 20 mg, By Mouth, 3 times a day, # 180 capsule, 5 Refills, Maintenance, 07/06/20 17:01:00 EST, [id number], 170, cm, 05/11/20 13:39:00 EST, Height Start Date: 07/06/20 Status: Ordered ibuprofen 800 mg oral tablet 800 mg, 1, tablet, By Mouth, 2 times a day, # 270 tablet, Refills 1, Tot. Refills 1, Acute 05/19/2117:45:00 EST, 11/16/20 17:32:00 EDT, Route to Pharmacy Electronically, [id number],Partial fill upon patient request if the prescripti... Start Date: 11/16/20 Stop Date: 05/19/21 Status: Ordered lidocaine 5% topical film 1 patch, Topically, Daily, PRN Pain , Mild, remove after 12 hours, # 5 patch, 0 Refills, Maintenance, 01/18/21 13:10:00 EDT, [id number], Partial fill upon patient request if the [...] ml) bottles pre-mixed. Please call pt for supervisor picking crew., Compound Start Date: 04/16/19 Status: Ordered Redi-Cat-(2) two pre-mixed 450 ml bottles Redi-Cat-(2) two pre-mixed 450 ml bottles, See Instructions, # 2 bottle, Refills 0, Tot. Refills 0,Maintenance, Follow instructions included per PCP office., 04/16/19 15:40:53 EDT, 2 (450 ml) bottles pre-mixed. Please call pt for supervisor picking crew., Compound Start Date: 04/16/19 Status: Ordered sertraline [...] to oldest [Reference Range]: 1 2 3 Oxygen Saturation [94-100 %] 98 % (01/18/21 12:18 PM) 100 % (01/18/21 6:55 AM) 99 % (01/18/21 2:41 AM) Pulse Rate [55-90 bpm] 66 bpm (01/18/21 12:18 PM) 74 bpm (01/18/21 6:55 AM) 52 bpm *L* (01/18/21 2:41 AM) Blood Pressure [90-138/55-84 mm Hg] 159/79mm Hg *H* (01/18/21 12:18 PM) 182/89mm Hg *H* (01/18/21 6:55 AM) 204/68mm Hg *H* (01/18/21 2:41 AM) Respiratory Rate [16-30 br/min] 16 br/min (01/18/21 12:18 PM) 16 br/min (01/18/21 6:55 AM) 16 br/min (01/18/21 2:41 AM) Temperature [96.8-100.4 DegF] 98.3 DegF (01/18/21 12:18 PM) 98.5 DegF (01/18/21 6:55 AM) 98.4 DegF (01/18/21 2:41 AM) Mode of Delivery (Oxygen) Room air (01/18/21 12:18 PM) Room air (01/18/21 6:55 AM) Room air (01/18/21 2:41 AM) Blood pressure sites Arm, left (01/18/21 6:55 AM) Arm, right (01/18/21 2:41 AM) Temperature Route Oral (01/18/21 12:18 PM) Oral (01/18/21 6:55 AM) Oral (01/18/21 2:41 AM) Social History Social History Type Response Smoking Status 10 or more cigarette s (1/2 pack or more)/day in last 30 days; Other: Currently smoking about 8-10 cigarettes daily.; entered on: 08/27/19 Sex
--- OUTSIDE RECORDS SUMMARY | 2023-03-13 14:22 | XMS_ITS | Continuity of Care Document ---
Author Name Unknown Organization [facility] Address [address] [place] [address]- Care Team Providers Care Finisher Map And Chart Name Role Phone Mike HEATH, Kevyn Gaytan Primary Care Physician [phone] Encounter [facility] Date(s): 11/02/22 - 12/02/22 [facility] Adult [address] [place] [address]- Allergies, Adverse Reactions, Alerts Substance Reaction Severity Status sulfa drugs Active Flonase Active ZyrTEC rash Active Demerol HCl Active Percocet 5325 Active Immunizations Given and Recorded Vaccine Date Status Refusal Reason pneumococcal 23-valent vaccine 1 07/06/22 Given pneumococcal 23-valent vaccine 2 07/03/00 Recorded Influenza Virus Vaccine (oldterm) 3 04/06/22 Recor ded Influenza Virus Vaccine (oldterm) 03/02/20 Recorde d [id number] 12y+ bivalent booster vax 4 04/06/22 Recorded [id number] 12y+ bivalent booster vax 5 04/06/22 Recorded [...] tetanus/diphtheria/pertussis, acel(Tdap) 8 07/03/08 Recorded 1Result Comment: [id number] 2Location History: Dr. Lao 3Result Comment: [facility] DUPLICATE 4Result Comment: Nida 5Result Comment: DUPLICATE 6Result Comment: DEMETRIAS 7Result Comment: [facility] [id number] 8Location History: Dr. Lao Medications amLODIPine 10 mg oral tablet 10 mg, 1, tablet, By Mouth, Daily, Increase in dose, # 90 tablet, Refills 3, Tot. Refills 3, Maintenance, 04/27/22 13:48:00 EDT, Route to Pharmacy Electronically, [facility] #[id number], Partialfill upon patient request if the prescription is fo... Start Date: 04/27/22 Status: Ordered dicyclomine 20 mg oral tablet 1 tablet = 20 mg, By Mouth, 4 times a day, PRN spasm, Increase in dose, # 56 tablet, 5 Refills, Maintenance, 10/19/22 13:40:00 EDT, Tablet, [facility] #[id number], Partial fill upon patient request if the prescription is for a schedule II opioid... Start Date: 10/19/22 Stop Date: 01/11/23 Status: Ordered duloxetine 30 mg oral enteric coated capsule 1 capsule = 30 mg, By Mouth, 2 times a day, Increase in dose, # 180 capsule, 3 Refills, Maintenance, 04/27/22 13:42:00 EDT, [facility] #[id number], Partial fill upon patient request if the [...] Replace Required Details, Route to Pharmacy Electronically, [facility] #[id number], 170, cm, 10/25/21 16:19:00 EDT, Height Start Date: 11/15/21 Status: Ordered LORazepam 1 mg oral tablet 1 tablet = 1 mg, By Mouth, 2 times a day, PRN as needed for anxiety, # 60 tablet, 2 Refills, Maintenance, 11/06/22 6:34:00 EDT, Tablet, [facility] #[id number], 170, cm, 10/19/22 13:31:00 EDT, Height Start Date: 11/06/22 Status: Ordered LORazepam 1 mg oral tablet 1 tablet = 1 mg, By Mouth, 3 times a day, 0 Refills, Maintenance, 10/19/22 11:20:00 EDT, Partial fill upon patient request if the prescription is for a schedule II opioid drug. Start Date: 10/19/22 Status: Ordered Magnesium Oxide = 400 mg, By Mouth, 0 Refills, Maintenance, 07/06/22 13:16:00 EST, Partial fill upon patient request if the prescription is for a schedule II opioid drug. Start Date: 07/06/22 Status: Ordered [facility] Rx Refills 0, Maintenance, probiotic, 10/19/22 13:25:00 [...] Maintenance, 09/22/22 5:18:00 EDT, [facility]), 170, cm, 09/07/22 11:31:00 EST, [...] claudication 1 Confirmed Active Underweight Confirmed Active 25114 CTA: IMPRESSION: 1. 70% stenosis of the [...] Team Personnel Name: Kevyn Mckeon MD Position: S Physician - Primary Care Member Role: PCP Address: Address: [address] [place] [address] [place] Care Team Related Persons Name: CATY LOCKWOOD Name: MARYCRUZ MANN Name: MARYCRUZ TORRES Name: NO, NONE Name: DAVID KRAFT Address: home [address] [address]
--- OUTSIDE RECORDS SUMMARY | 2023-03-13 14:23 | XMS_ITS | Continuity of Care Document ---
Author Name Unknown Organization [facility] Andrea Bryson lt Address [address] [place] [address]- Care Team Providers Care Electric Organ Assembler Name Role Phone Kevyn Mckeon MD Primary Care Physician [place] [facility] Date(s): 07/06/22 - 07/13/22 [facility] Adult [address] [place] [address]- Attending Physician: Kevyn Mckeon MD Allergies, Adverse Reactions, Alerts Substance Reaction Severity Status sulfa drugs Active Flonase Active Demerol HCl Active Percocet 5/325 Active ZyrTEC rash Active Immunizations Given and Recorded Vaccine Date Status Refusal Reason pneumococcal 23-valent vaccine 1 07/06/22 Given pneumococcal 23-valent vaccine 2 07/03/00 Recorded Influenza Virus Vaccine (oldterm) 3 04/06/22 Recor ded Influenza Virus Vaccine (oldterm) 03/02/20 Recorde d [id number] 12y+ bivalent booster vax 4 04/06/22 Recorded [id number] 12y+ bivalent booster vax 5 04/06/22 Recorded [...] tetanus/diphtheria/pertussis, acel(Tdap) 8 07/03/08 Recorded 1Result Comment: [id number] 2Location History: Dr. Lao 3Result Comment: Nida DUPLICATE 4Result Comment: Nida 5Result Comment: DUPLICATE 6Result Comment: NIDA 7Result Comment: [facility] [id number] 8Location History: Dr. Lao Medications amLODIPine 10 mg oral tablet 10 mg, 1, tablet, By Mouth, Daily, Increase in dose, # 90 tablet, Refills 3, Tot. Refills 3, Maintenance, 04/27/22 13:48:00 EDT, Route to Pharmacy Electronically, [facility] #[id number], Partialfill upon patient request if the prescription is fo... Start Date: 04/27/22 Status: Ordered duloxetine 30 mg oral enteric coated capsule 1 capsule = 30 mg, By Mouth, 2 times a day, Increase in dose, # 180 capsule, 3 Refills, Maintenance, 04/27/22 13:42:00 EDT, [facility] #[id number], Partial fill upon patient request if the [...] 11/15/22 6:26:00 EDT, Route to Pharmacy Electronically, [facility] #[id number], Partial fill upon patient request if the prescriptio... Start Date: 11/15/22 Stop Date: 11/16/22 Status: Ordered ibuprofen 800 mg oral tablet 800 mg, 1, tablet, By Mouth, 2 times a day, # 270 tablet, Refills 1, Tot. Refills 1, Acute :26:00 EDT, 11/15/21 6:26:00 EDT, Route to Pharmacy Electronically, [facility] #[id number], Partial fill upon patient request if the prescription... Start Date: 11/15/21 Stop Date: 11/15/22 Status: Ordered lisinopril 20 mg oral tablet See Instructions, TAKE 1 TABLET DAILY, # 90 tablet, Refills 3, Tot. Refills 3, 11/15/21 6:27:00 EDT, Instructions Replace Required Details, Route to Pharmacy Electronically, [facility] #[id number], 170, cm, 10/25/21 16:19:00 EDT, Height Start Date: 11/15/21 Status: Ordered LORazepam 1 mg oral tablet 1 tablet = 1 mg, By Mouth, 2 times a day, PRN as needed for anxiety, # 60 tablet, 2 Refills, Maintenance, 04/11/22 6:39:00 EDT, Tablet, [facility] #[id number], 170, cm, 03/23/22 11:12:00 EDT, Height Start Date: 04/11/22 Status: Ordered Magnesium Oxide = 400 mg, [...] Sore throat Confirmed Active Underweight Confirmed Active 59413 CTA: IMPRESSION: 1. 70% stenosis of the [...] oldest [Reference Range]: 1 Height 170 cm (07/06/22 1:11 PM) Weight 47.0 kg (07/06/22 1:11 PM) Oxygen Saturation [94-100 %] 100 % (07/06/22 1:11 PM) Pulse Rate [55-90 bpm] 83 bpm (07/06/22 1:11 PM) Body Mass Index [18.5-24.99 kg/m2] 16.26 kg/m2 *L* (07/06/22 1:11 PM) Blood Pressure [90-138/55-84 mm Hg] 138/ 74mm Hg (07/06/22 1:11 PM) Mode of Delivery (Oxygen) Room air (07/06/22 1:11 PM) Blood pressure sites Arm, right (07/06/22 1:11 PM) Weight Obtained Via Standing scale (07/06/22 1:11 PM) Social History Social History Type Response Smoking Status 10 or more cigarette s (1/2 pack or more)/day in last 30 days; Other: Currently smoking about 8-10 cigarettes daily.; entered on: 08/27/19 Sex Patient Care team information Care Team Personnel Name: Mike HEATH, Kevyn Gaytan Position: [facility] Primary Care Physician Member Role: PCP Address: Address: [address] [place] [id number]- Care Team Related Persons Name: MARYCRUZ MANN Name: NO, NONE Name: DAVID KRAFT Address: [address] [address]
--- OUTSIDE RECORDS SUMMARY | 2023-03-13 14:23 | XMS_ITS | Continuity of Care Document ---
Author Name Unknown Organization [facility] Bryson lt Address [address] [place] [address]- Care Team Providers Care Home Sales Consultant Name Role Phone Kevyn Mckoen MD Primary Care Physician [place] [facility] [id number] Date(s): 05/10/21 - 05/17/21 [facility] Adult [address] [place] [address]- Attending Physician: Kevyn Mckeon MD Allergies, Adverse [...] 23-valent vaccine 3 07/03/00 Recorded 1Result Comment: [facility] [id number] 2Location History: Dr. Lao 3Location History: Dr. Lao Medications 4 wheeled walked with seat and brake 4 wheeled walked with seat and brake, See Instructions, # 1 each, Refills 0, Tot. Refills 0, Maintenance, DX:M81.0 4 wheeled walker with seat and brakes, HIPOL[place]O lifetime 99MOS [facility], 01/07/21 10:52:00 EDT, Supply Start [...] 0 Refills, Maintenance, 05/10/21 14:43:00 EST, [place], [facility] #[id number], Partial fill upon patient request if the prescription is for a schedule II opioid drug., 170, cm, 05/03/21 13:38:00 EDT,... Start Date: 05/10/21 Status: Ordered ibuprofen 800 mg oral tablet 800 mg, 1, tablet, By Mouth, 2 times a day, # 270 tablet, Refills 1, Tot. Refills 1, Acute 05/19/2117:45:00 EST, 11/16/20 17:32:00 EDT, Route to Pharmacy Electronically, [facility] #[id number],Partial fill upon patient request if the prescripti... Start Date: 11/16/20 Stop Date: 05/19/21 Status: Ordered lisinopril 20 mg oral tablet See Instructions, TAKE 1 TABLET DAILY, # 90 Unknown, Refills 0, Maintenance, Instructions Replace Required Details, Route to Pharmacy Electronically, [facility], 170, cm, 12/10/20 13:41:00 EDT, Height [...] and foot rests, HIPOLITO 99MOS send to [facility], 04/12/21 16:40:00 E... Start [...]
--- OUTSIDE RECORDS SUMMARY | 2023-03-13 14:23 | XMS_ITS | Continuity of Care Document ---
Author Name Unknown Organization [facility] Bryson lt Address [address] [place] [address]- Care Team Providers Care Merry Go Round Attendant Name Role Phone Mike HEATH, Kevyn Gaytan Primary Care Physician [place] [facility] [place] Date(s): 01/26/21 - 02/25/21 [facility] Adult [address] [place] [address]- Allergies, Adverse Reactions, Alerts Substance Reaction Severity [...] 23-valent vaccine 3 07/03/00 Recorded 1Result Comment: [facility] [id number] 2Location History: Dr. Lao 3Location History: Dr. [...] tablet, 3 Refills, Maintenance, 02/23/21 11:22:00 EDT, [facility], 170, cm, 02/01/21 12:54:00 EDT, Height Start Date: 02/23/21 Status: Ordered azelastine 137 mcg/inh (0.1%) nasal spray 2 sprays, Nares, Both, Daily, PRN Other Allergies, # 30 mL, 2 Refills, Maintenance, 11/23/20 16:34:00 EDT, [place], [facility][id number], Partial fill upon patient request if the prescription is for a schedule II opioid drug., 2 sprays Nares, B... Start Date: 11/23/20 Status: Ordered dicyclomine 10 mg oral capsule 2 capsule = 20 mg, By Mouth, 3 times a day, # 180 capsule, 5 Refills, Maintenance, 07/06/20 17:01:00 EST, [facility] #[id number], 170, cm, 05/11/20 13:39:00 EST, Height Start Date: 07/06/20 Status: Ordered ibuprofen 800 mg oral tablet 800 mg, 1, tablet, By Mouth, 2 times a day, # 270 tablet, Refills 1, Tot. Refills 1, Acute 05/19/2117:45:00 EST, 11/16/20 17:32:00 EDT, Route to Pharmacy Electronically, [facility] #[id number],Partial fill upon patient request if the prescripti... Start Date: 11/16/20 Stop Date: 05/19/21 Status: Ordered lidocaine 5% topical film 1 patch, Topically, Daily, PRN Pain , Mild, remove after 12 hours, # 5 patch, 0 Refills, Maintenance, 01/18/21 13:10:00 EDT, [place], [facility] #[id number], Partial fill upon patient request if the [...] ml) bottles pre-mixed. Please call pt for fruit picker., Compound Start Date: 04/16/19 Status: Ordered Redi-Cat-(2) two pre-mixed 450 ml bottles Redi-Cat-(2) two pre-mixed 450 ml bottles, See Instructions, # 2 bottle, Refills 0, Tot. Refills 0,Maintenance, Follow instructions included per PCP office., 04/16/19 15:40:53 EDT, 2 (450 ml) bottles pre-mixed. Please call pt for fruit picker., Compound Start Date: 04/16/19 Status: Ordered [...]
--- OUTSIDE RECORDS SUMMARY | 2023-03-13 14:23 | XMS_ITS | Continuity of Care Document ---
Author Name Unknown Organization [facility] Address [address] [place] [address]- Care Team Providers Care Marine Oil Terminal Superintendent Name Role Phone Kevyn Mckeon MD Primary Care Physician [phone] Encounter [facility] [place] [id number] Date(s): 09/22/21 - 10/22/21 [facility] [address] [place] [address]- Attending Physician: AdmNessa flores Admitting Physician: Admtr, Ar8 Referring Physician: Admtr, Ar8 Allergies, Adverse Reactions, [...] vaccine 3 07/03/00 Recorded 1Result Comment: [facility] [id number] 2Location History: Dr. Lao 3Location History: Dr. [...] 0 Refills, Maintenance, 09/24/21 11:47:00 EDT, [place], [facility] #[id number], Partial fill upon patient request if the prescription is for a schedule II opioid drug., 1... Start Date: 09/24/21 Status: Ordered lisinopril 20 mg oral tablet See Instructions, TAKE 1 TABLET DAILY, # 90 Unknown, Refills 1, Tot. Refills 1, 07/14/21 11:38:00 EST, Instructions Replace Required Details, Route to Pharmacy Electronically, [facility], 170, cm, 05/03/21 13:38:00 EDT, Height Start Date: 07/14/21 Status: Ordered LORazepam 1 mg oral tablet 1 tablet = 1 mg, By Mouth, 2 times a day, PRN as needed for anxiety, # 180 tablet, 1 Refills, Maintenance, 07/15/21 5:43:00 EST, Tablet, [facility], 170, cm, 05/03/21 13:38:00 EDT, [...] and foot rests, HIPOLITO 99MOS [facility], 04/12/21 16:40:00 E... Start Date: [...]
--- OUTSIDE RECORDS SUMMARY | 2023-03-13 14:23 | XMS_ITS | Continuity of Care Document ---
Author Name Unknown Organization [facility] Bryson lt Address [address] [place] [address]- Care Team Providers Care Freight Hustler Name Role Phone Mike HEATH, Kevyn Gaytan Primary Care Physician Encounter [facility] [place] Date(s): 11/15/21 - 12/15/21 [facility] Adult [address] [place] [address]- Allergies, Adverse Reactions, Alerts Substance Reaction Severity [...] 3 07/03/00 Recorded 1Result Comment: [facility] [id number] 2Location History: Dr. Lao 3Location History: Dr. [...] 11/15/21 6:26:00 EDT, Route to Pharmacy Electronically, [facility] #[id number], Partial fill upon patient request if the prescription... Start Date: 11/15/21 Stop Date: 11/15/22 Status: Ordered lidocaine 5% topical film 1 patch, Topically, Daily, PRN Pain , Mild, remove after 12 hours, # 13 each, 0 Refills, Maintenance, 09/24/21 11:47:00 EDT, [place], [facility] #[id number], Partial fill upon patient request if the prescription is for a schedule II opioid drug., 1... Start Date: 09/24/21 Status: Ordered lisinopril 20 mg oral tablet See Instructions, TAKE 1 TABLET DAILY, # 90 tablet, Refills 3, Tot. Refills 3, 11/15/21 6:27:00 EDT, Instructions Replace Required Details, Route to Pharmacy Electronically, [facility] #[id number], 170, cm, 10/25/21 16:19:00 EDT, [...] and foot rests, HIPOLITO 99MOS send to [facility], 04/12/21 16:40:00 E... Start Date: 04/12/21 Status: Ordered triamcinolone 0.1% topical cream 1 application, Topically, 2 times a day, for 14 days, # 60 Gm, 1 Refills, Acute 01/12/22 13:21:00 EDT, 12/15/21 13:21:00 EDT, Cream, [facility] #[id number], Partial fill upon patient request if the prescription is for a schedule II opioid drug.,... Start Date: 12/15/21 Stop Date: 01/12/22 Status: Ordered Problem List Condition Effective Dates Status Health Status Inform ant Allergic rhinitis(Confirmed) Active Oliveira's esophagus(Confirmed) Active Osteoarthritis of both hands(Confirmed) Active Essential hypertension(Confirmed) Active IBS (irritable bowel syndrom e) with diarrhea(Confirmed) Active Major depression(Confirmed) Active Osteoporosis(Confirmed) Active PVD (peripheral vascular dis ease) with claudication(Confirmed) 1 Active Underweight(Confirmed) Active 61629 CTA: IMPRESSION: 1. 70% stenosis of the [...]
--- OUTSIDE RECORDS SUMMARY | 2023-03-13 14:23 | XMS_ITS | Continuity of Care Document ---
Author Name Unknown Organization [facility] Bryson lt Address [address] [place] [address]- Care Team Providers Care Film Casting Operator Name Role Phone Kevyn Mckeon MD Primary Care Physician [phone] Encounter [facility] [place] Date(s): 10/25/21 - 11/01/21 [facility] Adult [address] [place] [address]- Attending Physician: Kevyn Mckeon MD Allergies, Adverse [...] 23-valent vaccine 3 07/03/00 Recorded 1Result Comment: [facility] [id number] 2Location History: Dr. Lao 3Location History: Dr. [...] 0 Refills, Maintenance, 09/24/21 11:47:00 EDT, [place], [facility] #[id number], Partial fill upon patient request if the prescription is for a schedule II opioid drug., 1... Start Date: 09/24/21 Status: Ordered lisinopril 20 mg oral tablet See Instructions, TAKE 1 TABLET DAILY, # 90 Unknown, Refills 1, Tot. Refills 1, 07/14/21 11:38:00 EST, Instructions Replace Required Details, Route to Pharmacy Electronically, [facility], 170, cm, 05/03/21 13:38:00 EDT, Height Start Date: 07/14/21 Status: Ordered LORazepam 1 mg oral tablet 1 tablet = 1 mg, By Mouth, 2 times a day, PRN as needed for anxiety, # 180 tablet, 1 Refills, Maintenance, 07/15/21 5:43:00 EST, Tablet, [facility], 170, cm, 05/03/21 13:38:00 EDT, [...] and foot rests, HIPOLITO 99MOS send to [facility], 04/12/21 16:40:00 E... Start Date: 04/12/21 Status: Ordered Problem List Condition Effective Dates Status Health Status Inform ant Allergic rhinitis(Confirmed) Active Oliveira's esophagus(Confirmed) Active Claudication(Confirmed) Active Osteoarthritis of both hands(Confirmed) Active Essential hypertension(Confirmed) Active IBS (irritable bowel syndrom e) with diarrhea(Confirmed) Active Major depression(Confirmed) Active Osteoporosis(Confirmed) Active Underweight(Confirmed) Active Vital Signs Most recent to oldest [Reference Range]: 1 Height 170 cm (10/25/21 4:19 PM) Social History Social History Type Response Smoking Status 10 or more cigarette s (1/2 pack or more)/day in last 30 days; Other: Currently smoking about 8-10 cigarettes daily.; entered on: 08/27/19 Sex
--- OUTSIDE RECORDS SUMMARY | 2023-03-13 14:23 | XMS_ITS | Continuity of Care Document ---
Author Name Unknown Organization [facility] Bryson lt Address [address] [place] [address]- Care Team Providers Care Unit Aid Name Role Phone Mike HEATH, Kevyn Gaytan Primary Care Physician Encounter [facility] [place] Date(s): 11/23/20 - 12/23/20 [facility] Adult [address] [place] [address]- Allergies, Adverse Reactions, Alerts Substance Reaction Severity [...] 23-valent vaccine 3 07/03/00 Recorded 1Result Comment: [facility] [id number] 2Location History: Dr. Lao 3Location History: Dr. Lao Medications amLODIPine 2.5 mg oral tablet 1 tablet, By Mouth, Daily, # 90 Unknown, 3 Refills, Maintenance, 03/02/20 14:31:00 EDT, [facility], 170, cm, 03/02/20 13:50:00 EDT, Height Start Date: 03/02/20 Status: Ordered azelastine 137 mcg/inh (0.1%) nasal spray 2 sprays, Nares, Both, Daily, PRN Other Allergies, # 30 mL, 2 Refills, Maintenance, 11/23/20 16:34:00 EDT, [place], [facility] #[id number], Partial fill upon patient request if the prescription is for a schedule II opioid drug., 2 sprays Nares, B... Start Date: 11/23/20 Status: Ordered dicyclomine 10 mg oral capsule 2 capsule = 20 mg, By Mouth, 3 times a day, # 180 capsule, 5 Refills, Maintenance, 07/06/20 17:01:00 EST, [facility] #[id number], 170, cm, 05/11/20 13:39:00 EST, Height Start Date: 07/06/20 Status: Ordered ibuprofen 800 mg oral tablet 800 mg, 1, tablet, By Mouth, 2 times a day, # 270 tablet, Refills 1, Tot. Refills 1, Acute 05/19/2117:45:00 EST, 11/16/20 17:32:00 EDT, Route to Pharmacy Electronically, [facility] #[id number],Partial fill upon patient request if the prescripti... [...] ml) bottles pre-mixed. Please call pt for pharmacy picking tech., Compound Start Date: 04/16/19 Status: Ordered Redi-Cat-(2) two pre-mixed 450 ml bottles Redi-Cat-(2) two pre-mixed 450 ml bottles, See Instructions, # 2 bottle, Refills 0, Tot. Refills 0,Maintenance, Follow instructions included per PCP office., 04/16/19 15:40:53 EDT, 2 (450 ml) bottles pre-mixed. Please call pt for pharmacy picking tech., Compound Start Date: 04/16/19 Status: Ordered sertraline [...]
--- OUTSIDE RECORDS SUMMARY | 2023-03-13 14:23 | XMS_ITS | Continuity of Care Document ---
Author Name Unknown Organization [facility] Address [address] [place] [address]- Care Team Providers Care Transaction Manager Name Role Phone Kevyn Mckeon MD Primary Care Physician [phone] Encounter 05/04/20 - 05/11/20 [facility] [address], [address] [place] [address]- Attending Physician: Kevyn Mckeon MD Admitting Physician: Kevyn Mckeon MD Referring Physician: Kevyn Mckeon MD Allergies, [...] capsule, 1 Refills, Maintenance, 07/19/19 13:00:00 EST, [facility] #[id number], 170, cm, 05/08/19 10:06:00 EST, Height Start [...] ml) bottles pre-mixed. Please call pt for cone picker., Compound Start Date: 04/16/19 Status: Ordered Redi-Cat-(2) two pre-mixed 450 ml bottles Redi-Cat-(2) two pre-mixed 450 ml bottles, See Instructions, # 2 bottle, Refills 0, Tot. Refills 0,Maintenance, Follow instructions included per PCP office., 04/16/19 15:40:53 EDT, 2 (450 ml) bottles pre-mixed. Please call pt for cone picker., Compound Start Date: 04/16/19 Status: Ordered sertraline 25 mg oral tablet 1 tablet = 25 mg, By Mouth, 2 times a day, # 180 tablet, 1 Refills, Maintenance, 01/22/20 13:48:00 EDT, [facility], 170, cm, 11/28/19 13:51:00 EDT, Height Start Date: 01/22/20 Status: Ordered Vitamin D3 1000 intl units [...] syndrome)(Confirmed) Active Major depression(Confirmed) Active Osteoporosis(Confirmed) Active Results Radiology Reports * Exam Date Time Procedure Performing Provider Status 05/04/20 2:15 PM Chest 2 Views Frontal and Lat Magaly Richey; Linda (Verified) Notes: (Chest 2 Views Frontal and Lat) Reason For Exam: Cough RESULT: Chest 2 Views Frontal and Lat Chest 2 Views Frontal and Lat INDICATION/CLINICAL QUESTION: Reason: Cough / TECHNIQUE: Frontal and lateral views of the chest. COMPARISON: No prior examination. FINDINGS: LINES AND TUBES: None. LUNGS AND PLEURA: RIGHT CHEST: The right lung is clear and there is no right effusion. LEFT CHEST: The left lung is clear and there is no left effusion. HEART, MEDIASTINUM AND DEEPTI: The heart is of normal size. Rounded fullness lower mediastinal representing a hiatal hernia.. BONES AND SOFT TISSUES: Moderate compression fracture it was probably T10. This was present on a CT scan abdomen 04/26/2019. Old left rib fractures. IMPRESSION: 1. No active cardiac or pulmonary disease. 2. Moderate hiatal hernia. 3. Old left rib fractures. 4. Old compression fracture of T10. WSN: [id number] Ordering Physician: Kevyn Mckeon Dictated By: Michelle HEATH, Remi Okeefe Dictated Date/Time: 05/04/20 2:27 pm Reviewed By: Remi Martinez MD Signed By: Remi Martinez MD Signed Date/Time: 05/04/20 2:27 pm Transcribed By: RON Transcribed Date/Time: 05/04/20 2:24 pm Social History Social History Type Response Smoking Status 10 or more cigarette s (1/2 pack or more)/day in last 30 days; Other: Currently smoking about 8-10 cigarettes daily.; entered on: 08/27/19 Sex
--- OUTSIDE RECORDS SUMMARY | 2023-03-13 14:23 | XMS_ITS | Continuity of Care Document ---
Author Name Unknown Organization [facility] Bryson lt Address [address] [place] [address]- Care Team Providers Care Fire Hose Curer Name Role Phone Mike HEATH, Kevyn Gaytan Primary Care Physician [place] [facility] [place] 11/23/20 - 12/23/20 [facility] Adult [address] [place] [address]- Allergies, Adverse Reactions, Alerts Substance Reaction Severity [...] 23-valent vaccine 3 07/03/00 Recorded 1Result Comment: [facility] [id number] 2Location History: Dr. Lao 3Location History: Dr. [...] mL, 2 Refills, Maintenance, 11/23/20 16:34:00 EDT, [place], [facility] #[id number], Partial fill upon patient request if the prescription is for a schedule II opioid drug., 2 sprays Nares, B... Start Date: 11/23/20 Status: Ordered dicyclomine 10 mg oral capsule 2 capsule = 20 mg, By Mouth, 3 times a day, # 180 capsule, 5 Refills, Maintenance, 07/06/20 17:01:00 EST, [facility] #[id number], 170, cm, 05/11/20 13:39:00 EST, Height Start Date: 07/06/20 Status: Ordered ibuprofen 800 mg oral tablet 800 mg, 1, tablet, By Mouth, 2 times a day, # 270 tablet, Refills 1, Tot. Refills 1, Acute 05/19/2117:45:00 EST, 11/16/20 17:32:00 EDT, Route to Pharmacy Electronically, [facility] #[id number],Partial fill upon patient request if the prescripti... [...]
--- OUTSIDE RECORDS SUMMARY | 2023-03-13 14:23 | XMS_ITS | Continuity of Care Document ---
Author Name Unknown Organization [facility] Bryson lt Address [address] [place] [address]- Care Team Providers Care Lining Printer Name Role Phone Mike HEATH, Kevyn Gaytan Primary Care Physician [phone] [place] [facility] [place] [id number] Date(s): 01/27/23 - 02/26/23 [facility] Adult [address] [place] [address]- Allergies, Adverse Reactions, Alerts Substance Reaction Severity Status predniSONE makes you jumpy Active Flonase vomiting Active Augmentin ? caused c diff Active Nuts tree nuts - upset stomach Ac tive Pollen Active Percocet sick to stomach Active ZyrTEC rash Active sulfa drugs itchy, red Active Adhesive Bandage use paper tape thin skin bandages cause tears in skin Active Demerol HCl sick to stomach Active Immunizations Given and Recorded Vaccine Date Status Refusal Reason pneumococcal 23-valent vaccine 1 07/06/22 Given pneumococcal 23-valent vaccine 2 07/03/00 Recorded [id number] 12y+ bivalent booster vax 3 04/06/22 Recorded [...] tetanus/diphtheria/pertussis, acel(Tdap) 6 07/03/08 Recorded 1Result Comment: [id number] 2Location History: Dr. Lao 3Result Comment: Nida 4Result Comment: NIDA 5Result Comment: [facility] [id number] 6Location History: Dr. Lao Medications acetaminophen 500 [...] 04/27/22 13:48:00 EDT, Route to Pharmacy Electronically, [facility] #[id number], Partialfill upon patient request if the prescription [...] 5 Refills, Maintenance, 10/19/22 13:40:00 EDT, Tablet, [facility] #[id number], Partial fill upon patient request if the prescription is for a schedule II opioid... Start Date: 10/19/22 Stop Date: 01/11/23 Status: Ordered duloxetine 30 mg oral enteric coated capsule 1 capsule = 30 mg, By Mouth, 2 times a day, Increase in dose, # 180 capsule, 3 Refills, Maintenance, 04/27/22 13:42:00 EDT, [facility] #[id number], Partial fill upon patient request if the [...] 02/24/23 16:21:00 EDT, Route to Pharmacy Electronically, [facility] #[id number], Partial fill upon patient request if the prescription is for a schedule II opi... Start Date: 02/24/23 Stop Date: 03/03/23 Status: Ordered ibuprofen 600 mg oral tablet 600 mg, By Mouth, 3 times a day, for 3 days, # 9 tablet, Refills 0, Tot. Refills 0, Acute 02/27/23 16:21:00 EDT, 02/24/23 16:21:00 EDT, Route to Pharmacy Electronically, [facility] #[id number], Partial fill upon patient request if the prescriptio... Start Date: 02/24/23 Stop Date: 02/27/23 Status: Ordered lisinopril 20 mg oral tablet 20 mg, 1, tablet, By Mouth, Daily, for 90 days, # 90 tablet, Refills 3, Tot. Refills 3, Physician Stop 01/21/24 12:33:00 EDT, 01/26/23 12:33:00 EDT, Route to Pharmacy Electronically, [facility] #[id number], 165, cm, 01/11/23 11:25:00 EDT, Height Start Date: 01/26/23 Stop Date: 01/21/24 Status: Ordered sertraline 50 mg oral tablet 1 tablet, By Mouth, 2 times a day, # 180 tablet, 3 Refills, Maintenance, 09/22/22 5:18:00 EDT, [facility]), 170, cm, 09/07/22 11:31:00 EST, [...] claudication 1 Confirmed Active Underweight Confirmed Active 53100 CTA: IMPRESSION: 1. 70% stenosis of the [...] Safety Implantable Status Assigning Authority Unknown Unknown [id number] Unknown 11/27/26 Unknown Unknown Active Unknown Procedure Provider Procedure Date Device Type Site Repair Hernia Inguinal Open Gavino Dunlap MD 02/22/23 Un known Abdomen Device Identifier Serial Number Lot or Batch Number Manufacturing Date Expiration Date Distinct Identification Code MRI Safety Implantable Status Assigning Authority Unknown Unknown [id number] Unknown 07/30/27 Unknown Unknown Active Unknown Procedure Provider Procedure Date Device Type Site Repair Hernia Ventral Open Gavino Dunlap MD 02/22/23 Unk nown Abdomen Device Identifier Serial Number Lot or Batch Number Manufacturing Date Expiration Date Distinct Identification Code MRI Safety Implantable Status Assigning Authority Unknown Unknown [id number] Unknown 08/30/24 Unknown Unknown Active Unknown Patient Care team information Care Team Personnel Name: Beni Doshi RN Position: [facility] RN Member Role: Primary Care Nurse Name: Ronald Heath RN Position: S RN Member Role: Primary Care Nurse Name: Kevyn Mckeon MD Position: [facility] Physician - Primary Care Member Role: PCP Address: Address: [address] [place] [address]- Name: Melissa Chau RN Position: [facility] RN Member Role: Primary Care Nurse Name: Gemini Alfaro Position: [facility] Lace Paper Machine Operator Member Role: Wool Broker Name: Marifer Thomas RN Position: [facility] RN Member Role: Primary Care Nurse Name: Ana Lopes RN Position: [facility] RN Member Role: Primary Care Nurse Care Team Related Persons Name: CATY LOCKWOOD Name: MARYCRUZ MANN Name: MARYCRUZ TORRES Name: NO, NONE Name: DAVID KRAFT Address: [address] [address]
--- OUTSIDE RECORDS SUMMARY | 2023-03-13 14:23 | XMS_ITS | Continuity of Care Document ---
Author Name Unknown Organization [facility] Bryson lt Address [address] [place] [address]- Care Team Providers Care Supervisor Filter Assembly Name Role Phone Kevyn Mckeon MD Primary Care Physician [phone] [place] [facility] [place] 05/04/22 [facility] Adult [address] [place] [address]- Attending Physician: Kevyn Mckeon MD Allergies, Adverse Reactions, Alerts Substance Reaction Severity Status sulfa drugs Active Flonase Active Demerol HCl Active Percocet 5/325 Active ZyrTEC rash Active Immunizations Given and Recorded Vaccine Date Status Refusal Reason Influenza Virus Vaccine (oldterm) 1 04/06/22 Recor ded Influenza Virus Vaccine (oldterm) 03/02/20 Recorde d [id number] 12y+ bivalent booster vax 2 04/06/22 Recorded [id number] 12y+ bivalent booster vax 3 04/06/22 Recorded [...] Comment: DUPLICATE 4Result Comment: NIDA 5Result Comment: [facility] [id number] 6Location History: Dr. Lao 7Location History: Dr. Lao Medications amLODIPine 10 mg oral tablet 10 mg, 1, tablet, By Mouth, Daily, Increase in dose, # 90 tablet, Refills 3, Tot. Refills 3, Maintenance, 04/27/22 13:48:00 EDT, Route to Pharmacy Electronically, [facility] #[id number], Partialfill upon patient request if the prescription is fo... Start Date: 04/27/22 Status: Ordered duloxetine 30 mg oral enteric coated capsule 1 capsule = 30 mg, By Mouth, 2 times a day, Increase in dose, # 180 capsule, 3 Refills, Maintenance, 04/27/22 13:42:00 EDT, [facility] #[id number], Partial fill upon patient request if the prescription is for a schedule II opioid drug., 170, cm,... Start Date: 04/27/22 Status: Ordered ibuprofen 800 mg oral tablet 800 mg, 1, tablet, By Mouth, 2 times a day, # 270 tablet, Refills 1, Tot. Refills 1, Acute :26:00 EDT, 11/15/21 6:26:00 EDT, Route to Pharmacy Electronically, [facility] #[id number], Partial fill upon patient request if the prescription... Start Date: 11/15/21 Stop Date: 11/15/22 Status: Ordered lidocaine 5% topical film 1 patch, Topically, Daily, PRN Pain , Mild, remove after 12 hours, # 13 each, 0 Refills, Maintenance, 09/24/21 11:47:00 EDT, Film, [facility] #[id number], Partial fill upon patient request if the prescription is for a schedule II opioid drug., 1... Start Date: 09/24/21 Status: Ordered lisinopril 20 mg oral tablet See Instructions, TAKE 1 TABLET DAILY, # 90 tablet, Refills 3, Tot. Refills 3, 11/15/21 6:27:00 EDT, Instructions Replace Required Details, Route to Pharmacy Electronically, [facility] #[id number], 170, cm, 10/25/21 16:19:00 EDT, Height Start Date: 11/15/21 Status: Ordered LORazepam 1 mg oral tablet 1 tablet = 1 mg, By Mouth, 2 times a day, PRN as needed for anxiety, # 60 tablet, 2 Refills, Maintenance, 04/11/22 6:39:00 EDT, Tablet, [facility] #[id number], 170, cm, 03/23/22 11:12:00 EDT, Height Start Date: 04/11/22 Status: Ordered methocarbamol 750 mg oral tablet 2 tablet = 1,500 mg, By Mouth, 3 times a day, PRN Pain , Moderate and spasm, # 90 tablet, 3 Refills, Acute 10/26/22 13:44:00 EDT, 04/27/22 13:43:00 EDT, [facility] #[id number], Partial fill uponpatient request if the prescription [...] claudication 1 Confirmed Active Underweight Confirmed Active 63340 CTA: IMPRESSION: 1. 70% stenosis of the [...] recent to oldest [Reference Range]: 1 2 Height 170 cm (04/27/22 1:33 PM) 170 cm (04/27/22 1:25 PM) Weight 50.8 kg (04/27/22 1:25 PM) Oxygen Saturation [94-100 %] 100 % (04/27/22 1:25 PM) Pulse Rate [55-90 bpm] 64 bpm (04/27/22 1:25 PM) Body Mass Index [18.5-24.99 kg/m2] 17.58 kg/m2 *L* (04/27/22 1:25 PM) Blood Pressure [90-138/55-84 mm Hg] 162/ 82mm Hg *H* (04/27/22 1:33 PM) 166/81mm Hg *H* (04/27/22 1:25 PM) Mode of Delivery (Oxygen) Room air (04/27/22 1:25 PM) Blood pressure sites Arm, left (04/27/22 1:33 PM) Arm, left (04/27/22 1:25 PM) Weight Obtained Via Standing scale (04/27/22 1:25 PM) Social History Social History Type Response Smoking Status 10 or more cigarette s (1/2 pack or more)/day in last 30 days; Other: Currently smoking about 8-10 cigarettes daily.; entered on: 08/27/19 Sex Patient Care team information Personnel Name: Kevyn Mckeon MD Address: Address: [address] [place] [id number]
--- OUTSIDE RECORDS SUMMARY | 2023-03-13 14:23 | XMS_ITS | Continuity of Care Document ---
Author Name Unknown Organization [facility] Bryson lt Address [address] [place] [address]- Care Team Providers Care Pull Up Hand Name Role Phone Mike HEATH, Kevyn Gaytan Primary Care Physician [place] [facility] [id number] Date(s): 12/30/22 - 01/29/23 [facility] Adult [address] [place] [address]- Attending Physician: Nessa Rouse Admitting Physician: AdmNessa [...] Influenza Virus Vaccine (oldterm) 03/02/20 Recorde d [id number] 12y+ bivalent booster vax 4 04/06/22 Recorded [id number] 12y+ bivalent booster vax 5 04/06/22 Recorded [...] tetanus/diphtheria/pertussis, acel(Tdap) 8 07/03/08 Recorded 1Result Comment: [id number] 2Location History: Dr. Lao 3Result Comment: Nida DUPLICATE 4Result Comment: Nida 5Result Comment: DUPLICATE 6Result Comment: NIDA 7Result Comment: [facility] [id number] 8Location History: Dr. Lao Medications amLODIPine 10 mg oral tablet 10 mg, 1, tablet, By Mouth, Daily, Increase in dose, # 90 tablet, Refills 3, Tot. Refills 3, Maintenance, 04/27/22 13:48:00 EDT, Route to Pharmacy Electronically, [facility] #[id number], Partialfill upon patient request if the prescription is fo... Start Date: 04/27/22 Status: Ordered dicyclomine 20 mg oral tablet 1 tablet = 20 mg, By Mouth, 4 times a day, PRN spasm, Increase in dose, # 56 tablet, 5 Refills, Maintenance, 10/19/22 13:40:00 EDT, Tablet, [facility] #[id number], Partial fill upon patient request if the prescription is for a schedule II opioid... Start Date: 10/19/22 Stop Date: 01/11/23 Status: Ordered duloxetine 30 mg oral enteric coated capsule 1 capsule = 30 mg, By Mouth, 2 times a day, Increase in dose, # 180 capsule, 3 Refills, Maintenance, 04/27/22 13:42:00 EDT, [facility] #[id number], Partial fill upon patient request if the [...] 01/26/23 12:33:00 EDT, Route to Pharmacy Electronically, [facility] #[id number], 165, cm, 01/11/23 11:25:00 EDT, Height Start Date: 01/26/23 Stop Date: 01/21/24 Status: Ordered LORazepam 1 mg oral tablet 1 tablet = 1 mg, By Mouth, 2 times a day, PRN as needed for anxiety, # 60 tablet, 2 Refills, Maintenance, 11/06/22 6:34:00 EDT, Tablet, [facility] #[id number], 170, cm, 10/19/22 13:31:00 EDT, Height Start Date: 11/06/22 Status: Ordered LORazepam 1 mg oral tablet 1 tablet = 1 mg, By Mouth, 3 times a day, 0 Refills, Maintenance, 10/19/22 11:20:00 EDT, Partial fill upon patient request if the prescription is for a schedule II opioid drug. Start Date: 10/19/22 Status: [facility], Maintenance, probiotic, 10/19/22 13:25:00 EDT, Supply Start Date: 10/19/22 Status: Ordered sertraline 50 mg oral tablet 1 tablet, By Mouth, 2 times a day, # 180 tablet, 3 Refills, Maintenance, 09/22/22 5:18:00 EDT, [facility]), 170, cm, 09/07/22 11:31:00 EST, [...] claudication 1 Confirmed Active Underweight Confirmed Active 32528 CTA: IMPRESSION: 1. 70% stenosis of the [...] 8-10 cigarettes daily.; entered on: 08/27/19 Sex Laboratory * Event Display: Non Lab Results Authored Date: Patient Care team information Care Team Personnel Name: Kevyn Mckeon MD Position: [facility] Physician - Primary Care Member Role: PCP Address: Address: [address] [place] [address]- Name: Gemini Alfaro Position: [facility] Visualizer Member Role: Meeting Coordinator Care Team Related Persons Name: CATY LOCKWOOD Name: MARYCRUZ MANN Name: MARYCRUZ TORRES Name: NO, NONE Name: DAVID KRAFT Address: [address] [address]
--- OUTSIDE RECORDS SUMMARY | 2023-03-13 14:23 | XMS_ITS | Continuity of Care Document ---
Author Name Unknown Organization [facility] Bry[facility] Address [address] [place] [address]- Care Team Providers Care Maintenance Mechanic Engine Name Role Phone Mike HEATH, Kevyn Gaytan Primary Care Physician Encounter [facility] Date(s): 03/30/22 - 04/29/22 [facility] Adult [address] [place] [address]- Allergies, Adverse Reactions, Alerts Substance Reaction Severity Status sulfa drugs Active Flonase Active Demerol HCl Active Percocet 5325 Active ZyrTEC rash Active Immunizations Given and Recorded Vaccine Date Status Refusal Reason Influenza Virus Vaccine (oldterm) 1 04/06/22 Recor ded Influenza Virus Vaccine (oldterm) 03/02/20 Recorde d [id number] 12y+ bivalent booster vax 2 04/06/22 Recorded [id number] 12y+ bivalent booster vax 3 04/06/22 Recorded [...] 6 07/03/08 Recorded pneumococcal 23-valent vaccine 7 1/1/01 Recorded 1Result Comment: Nida DUPLICATE 2Result Comment: Nida 3Result Comment: DUPLICATE 4Result Comment: NIDA 5Result Comment: [facility] [phone] 6Location History: Dr. Lao 7Location History: Dr. Lao Medications amLODIPine 10 mg oral tablet 10 mg, 1, tablet, By Mouth, Daily, Increase in dose, # 90 tablet, Refills 3, Tot. Refills 3, Maintenance, 04/27/22 13:48:00 EDT, Route to Pharmacy Electronically, [facility] #[id number], Partialfill upon patient request if the prescription is fo... Start Date: 04/27/22 Status: Ordered duloxetine 30 mg oral enteric coated capsule 1 capsule = 30 mg, By Mouth, 2 times a day, Increase in dose, # 180 capsule, 3 Refills, Maintenance, 04/27/22 13:42:00 EDT, [facility] #[id number], Partial fill upon patient request if the prescription is for a schedule II opioid drug., 170, cm,... Start Date: 04/27/22 Status: Ordered ibuprofen 800 mg oral tablet 800 mg, 1, tablet, By Mouth, 2 times a day, # 270 tablet, Refills 1, Tot. Refills 1, Acute :26:00 EDT, 11/15/21 6:26:00 EDT, Route to Pharmacy Electronically, [facility] #[id number], Partial fill upon patient request if the prescription... Start Date: 11/15/21 Stop Date: 11/15/22 Status: Ordered lidocaine 5% topical film 1 patch, Topically, Daily, PRN Pain , Mild, remove after 12 hours, # 13 each, 0 Refills, Maintenance, 09/24/21 11:47:00 EDT, Film, [facility] #[id number], Partial fill upon patient request if the prescription is for a schedule II opioid drug., 1... Start Date: 09/24/21 Status: Ordered lisinopril 20 mg oral tablet See Instructions, TAKE 1 TABLET DAILY, # 90 tablet, Refills 3, Tot. Refills 3, 11/15/21 6:27:00 EDT, Instructions Replace Required Details, Route to Pharmacy Electronically, [facility] #[id number], 170, cm, 10/25/21 16:19:00 EDT, Height Start Date: 11/15/21 Status: Ordered LORazepam 1 mg oral tablet 1 tablet = 1 mg, By Mouth, 2 times a day, PRN as needed for anxiety, # 60 tablet, 2 Refills, Maintenance, 04/11/22 6:39:00 EDT, Tablet, [facility] #[id number], 170, cm, 03/23/22 11:12:00 EDT, Height Start Date: 04/11/22 Status: Ordered methocarbamol 750 mg oral tablet 2 tablet = 1,500 mg, By Mouth, 3 times a day, PRN Pain , Moderate and spasm, # 90 tablet, 3 Refills, Acute 10/26/22 13:44:00 EDT, 04/27/22 13:43:00 EDT, [facility] #[id number], Partial fill uponpatient request if the prescription [...] claudication 1 Confirmed Active Underweight Confirmed Active 72899 CTA: IMPRESSION: 1. 70% stenosis of the [...] Sex Patient Care team information Personnel Name: Mike HEATH, Kevyn Gaytan Address: Address: [address] [place] [id number]
--- OUTSIDE RECORDS SUMMARY | 2023-03-13 14:23 | XMS_ITS | Continuity of Care Document ---
Author Name Unknown Organization [facility] Bry[facility] Address [address] [place] [address]- Care Team Providers Care High Speed Printer Operator Name Role Phone Kevyn Mckeon MD Primary Care Physician [phone] [place] [facility] [place]21 - 09/15/21 [facility] Adult [address] [place] [address]- Attending Physician: Kevyn Mckeon MD Allergies, Adverse [...] vaccine 3 07/03/00 Recorded 1Result Comment: [facility] [id number] 2Location History: Dr. Lao 3Location History: Dr. [...] EDT, Height Start Date: 07/12/21 Status: Ordered lisinopril 20 mg oral tablet [...] wheelchair with brakes and foot rests, HIPOLITO RicoOS send to [facility], 04/12/21 16:40:00 E... Start Date: 04/12/21 Status: Ordered traMADol 50 mg oral tablet See Instructions, 1 tablet By Mouth three times daily x 3 days, then 2 tabs three times daily, # 180 tablet, 0 Refills, Acute 10/09/21 10:49:00 EDT, 09/08/21 10:48:00 EST, [facility] #[id number], Partial fill upon patient request if the prescript... Start Date: 09/08/21 Stop Date: 10/09/21 Status: Ordered Problem List Condition Effective Dates Status Health Status Inform ant Allergic rhinitis(Confirmed) Active Oliveira's esophagus(Confirmed) Active Claudication(Confirmed) Active Osteoarthritis of both hands(Confirmed) Active Essential hypertension(Confirmed) Active IBS (irritable bowel syndrom e) with diarrhea(Confirmed) Active Major depression(Confirmed) Active Osteoporosis(Confirmed) Active Underweight(Confirmed) Active Vital Signs Most recent to oldest [Reference Range]: 1 2 Height 170 cm (09/08/21 10:29 AM) 170 cm (09/08/21 10:19 AM) Weight 52.3 kg (09/08/21 10:19 AM) Oxygen Saturation [94-100 %] 100 % (09/08/21 10:19 AM) Pulse Rate [55-90 bpm] 66 bpm (09/08/21 10:19 AM) Body Mass Index [18.5-24.99] 18.1 *L* (09/08/21 10:19 AM) Blood Pressure [90-138/55-84 mm Hg] 185/ 74mm Hg *H* (09/08/21 10:29 AM) 187/70mm Hg *H* (09/08/21 10:19 AM) Blood pressure sites Arm, left (09/08/21 10:19 AM) Weight Obtained Via Standing scale (09/08/21 10:19 AM) Social History Social History Type Response Smoking Status 10 or more cigarette s (1/2 pack or more)/day in last 30 days; Other: Currently smoking about 8-10 cigarettes daily.; entered on: 08/27/19 Sex
--- OUTSIDE RECORDS SUMMARY | 2023-03-13 14:23 | XMS_ITS | Continuity of Care Document ---
Author Name Unknown Organization [facility] Address [address] [place] [address]- Care Team Providers Care Auto Overhauler Name Role Phone Mike HEATH, Kevyn Gaytan Primary Care Physician Encounter 12/24/20 - 04/30/21 [facility] [place] [address], [address] [place] [address]- Attending Physician: Franca Lee NP Admitting Physician: Franca Lee NP Referring Physician: Franca Lee NP Allergies, Adverse Reactions, Alerts Substance Reaction Severity [...] 23-valent vaccine 3 07/03/00 Recorded 1Result Comment: [facility] [id number] 2Location History: Dr. Lao 3Location History: Dr. Lao Medications 4 wheeled walked with seat and brake 4 wheeled walked with seat and brake, See Instructions, # 1 each, Refills 0, Tot. Refills 0, Maintenance, DX:[id number] 4 wheeled walker with seat and brakes, HIPOLITO lifetime 99MOS [facility] address, 01/07/21 10:52:00 EDT, Supply Start Date: [...] mL, 2 Refills, Maintenance, 11/23/20 16:34:00 EDT, [place], [facility] #[id number], Partial fill upon patient request if the prescription is for a schedule II opioid drug., 2 sprays Nares, B... Start Date: 11/23/20 Status: Ordered dicyclomine 10 mg oral capsule 2 capsule = 20 mg, By Mouth, 3 times a day, # 180 capsule, 5 Refills, Maintenance, 07/06/20 17:01:00 EST, [facility] #[id number], 170, cm, 05/11/20 13:39:00 EST, Height Start Date: 07/06/20 Status: Ordered ibuprofen 800 mg oral tablet 800 mg, 1, tablet, By Mouth, 2 times a day, # 270 tablet, Refills 1, Tot. Refills 1, Acute 05/19/2117:45:00 EST, 11/16/20 17:32:00 EDT, Route to Pharmacy Electronically, [facility] #[id number],Partial fill upon patient request if the prescripti... Start Date: 11/16/20 Stop Date: 05/19/21 Status: Ordered lidocaine 5% topical film 1 patch, Topically, Daily, PRN Pain , Mild, remove after 12 hours, # 5 patch, 0 Refills, Maintenance, 01/18/21 13:10:00 EDT, Film, [facility] #[id number], Partial fill upon patient request if the [...] ml) bottles pre-mixed. Please call pt for fern picker., Compound Start Date: 04/16/19 Status: Ordered Redi-Cat-(2) two pre-mixed 450 ml bottles Redi-Cat-(2) two pre-mixed 450 ml bottles, See Instructions, # 2 bottle, Refills 0, Tot. Refills 0,Maintenance, Follow instructions included per PCP office., 04/16/19 15:40:53 EDT, 2 (450 ml) bottles pre-mixed. Please call pt for fern picker., Compound Start Date: 04/16/19 Status: Ordered [...] and foot rests, HIPOLITO 99MOS [facility], 04/12/21 16:40:00 E... Start Date: [...]
--- OUTSIDE RECORDS SUMMARY | 2023-03-13 14:23 | XMS_ITS | Continuity of Care Document ---
Author Name Unknown Organization [facility]son [facility] Address [address] [place] [address]- Care Team Providers Care Seed Cutter Name Role Phone Mike HEATH, Kevyn Gaytan Primary Care Physician [place] [facility] [place]18/20 - 09/17/20 [facility] Adult [address] [place] [address]- Allergies, Adverse Reactions, Alerts Substance Reaction Severity [...] capsule, 5 Refills, Maintenance, 07/06/20 17:01:00 EST, [facility] #[id number], 170, cm, 05/11/20 13:39:00 EST, Height Start [...] ml) bottles pre-mixed. Please call pt for package pick up., Compound Start Date: 04/16/19 Status: Ordered Redi-Cat-(2) two pre-mixed 450 ml bottles Redi-Cat-(2) two pre-mixed 450 ml bottles, See Instructions, # 2 bottle, Refills 0, Tot. Refills 0,Maintenance, Follow instructions included per PCP office., 04/16/19 15:40:53 EDT, 2 (450 ml) bottles pre-mixed. Please call pt for package pick up., Compound Start Date: 04/16/19 Status: Ordered sertraline [...]
--- OUTSIDE RECORDS SUMMARY | 2023-03-13 14:23 | XMS_ITS | Continuity of Care Document ---
Author Name Unknown Organization [facility] [place] Bry[facility] lt Address [address] [place] [address]- Care Team Providers Care Surveillance Sensor Operator Name Role Phone Kevyn Mckeon MD Primary Care Physician [phone] [place] [facility] [place]22 [facility] [place] Adult [address] [place] [address]- Attending Physician: Kevyn Mckeon MD Allergies, Adverse [...] Comment: [facility] [id number] 2Location History: Dr. Lao 3Location History: Dr. Lao Medications 4 wheeled walked with seat and brake 4 wheeled walked with seat and brake, See Instructions, # 1 each, Refills 0, Tot. Refills 0, Maintenance, DX:M81.0 4 wheeled walker with seat and brakes, HIPOLITO lifetime 99MOS Please deliver to patientshome address, 01/07/21 10:52:00 EDT, Supply Start Date: 01/07/21 Status: Ordered amLODIPine 5 mg oral tablet 5 mg, 1, tablet, By Mouth, Daily, Increase in dose, # 90 tablet, Refills 3, Tot. Refills 3, Maintenance, 03/24/22 6:45:00 EDT, Route to Pharmacy Electronically, [facility] #[id number], Partial fill upon patient request if the prescription is for... Start Date: 03/24/22 Status: Ordered duloxetine 30 mg oral enteric coated capsule 1 capsule = 30 mg, By Mouth, Daily, # 30 capsule, 5 Refills, Maintenance, 03/24/22 6:46:00 EDT, [facility] #[id number], Partial fill upon patient request if the prescription is for a schedule IIopioid drug., 170, cm, 03/23/22 11:12:00 EDT, Height Start Date: 03/24/22 Status: Ordered ibuprofen 800 mg oral tablet 800 mg, 1, tablet, By Mouth, 2 times a day, # 270 tablet, Refills 1, Tot. Refills 1, Acute :26:00 EDT, 11/15/21 6:26:00 EDT, Route to Pharmacy Electronically, [facility] #[id number], Partial fill upon patient request if the prescription... Start Date: 11/15/21 Stop Date: 11/15/22 Status: Ordered lidocaine 5% topical film 1 patch, Topically, Daily, PRN Pain , Mild, remove after 12 hours, # 13 each, 0 Refills, Maintenance, 09/24/21 11:47:00 EDT, Film, [facility] #[id number], Partial fill upon patient request if the prescription is for a schedule II opioid drug., 1... Start Date: 09/24/21 Status: Ordered lisinopril 20 mg oral tablet See Instructions, TAKE 1 TABLET DAILY, # 90 tablet, Refills 3, Tot. Refills 3, 11/15/21 6:27:00 EDT, Instructions Replace Required Details, Route to Pharmacy Electronically, [facility] #[id number], 170, cm, 10/25/21 16:19:00 EDT, Height Start Date: 11/15/21 Status: Ordered LORazepam 1 mg oral tablet 1 tablet = 1 mg, By Mouth, 2 times a day, PRN as needed for anxiety, # 60 tablet, 0 Refills, Maintenance, 01/23/22 15:19:00 EDT, [id number], 170, cm, 12/15/21 12:58:00 EDT, Height Start Date: 01/23/22 Stop Date: 03/24/22 Status: Ordered pantoprazole 40 mg oral delayed release tablet 1 tablet = 40 mg, By Mouth, 2 times a day, # 180 tablet, 3 Refills, Maintenance, 01/09/22 22:00:00 EDT, EC Tablet, 170, cm, 12/15/21 12:58:00 EDT, Height Start Date: 01/09/22 Status: Ordered sertraline 50 mg oral tablet 1 tablet = 50 mg, By Mouth, 2 times a day, Increase in dose, # 180 tablet, 3 Refills, Maintenance, 10/13/21 11:02:00 EDT, [facility], Partial fill upon patient request [...] foot rests, HIPOLITO 99MOS send to [facility], 04/12/21 16:40:00 E... Start Date: 04/12/21 Status: Ordered Problem List Condition Confirmation Course [...] claudication 1 Confirmed Active Underweight Confirmed Active 56298 CTA: IMPRESSION: 1. 70% stenosis of the [...] [Reference Range]: 1 2 Height 170 cm (03/23/22 11:12 AM) 170 cm (03/23/22 11:06 AM) Weight 51.1 kg (03/23/22 11:06 AM) Oxygen Saturation [94-100 %] 100 % (03/23/22 11:06 AM) Pulse Rate [55-90 bpm] 64 bpm (03/23/22 11:06 AM) Body Mass Index [18.5-24.99 kg/m2] 17.68 kg/m2 *L* (03/23/22 11:06 AM) Blood Pressure [90-138/55-84 mm Hg] 191/ 77mm Hg *H* (03/23/22 11:12 AM) 194/74mm Hg *H* (03/23/22 11:06 AM) Mode of Delivery (Oxygen) Room air (03/23/22 11:06 AM) Blood pressure sites Arm, left (03/23/22 11:12 AM) Arm, left (03/23/22 11:06 AM) Weight Obtained Via Standing scale (03/23/22 11:06 AM) Social History Social History Type Response Smoking Status 10 or more cigarette s (1/2 pack or more)/day in last 30 days; Other: Currently smoking about 8-10 cigarettes daily.; entered on: 08/27/19 Sex Patient Care team information Personnel Name: Mike HEATH, Kevyn Gaytan Address: Address: [address] [place] [id number]
--- OUTSIDE RECORDS SUMMARY | 2023-03-13 14:23 | XMS_ITS | Continuity of Care Document ---
Author Name Unknown Organization [facility] Address [address] [place] [address] [address] [place] [address]- Care Team Providers Care Green Building Engineer Name Role Phone Mike HEATH, Kevyn Gaytan Primary Care Physician [place] [facility] [id number] Date(s): 02/08/23 - 03/10/23 [facility] [address] [place] [address]- Allergies, Adverse Reactions, Alerts Substance Reaction Severity Status predniSONE makes you jumpy Active sulfa drugs itchy, red Active Demerol HCl sick to stomach Active Adhesive Bandage use paper tape thin skin bandages cause tears in skin Active Nuts tree nuts - upset stomach Ac tive Percocet 5/ sick to stomach Active ZyrTEC rash Active Flonase vomiting Active Augmentin ? caused c diff Active Pollen Active Immunizations Given and Recorded Vaccine Date Status Refusal Reason pneumococcal 23-valent vaccine 1 07/06/22 Given pneumococcal 23-valent vaccine 2 07/03/00 Recorded [id number] 12y+ bivalent booster vax 3 04/06/22 Recorded [...] tetanus/diphtheria/pertussis, acel(Tdap) 6 07/03/08 Recorded 1Result Comment: [id number] 2Location History: Dr. Lao 3Result Comment: [place] 4Result Comment: [place] 5Result Comment: [facility] [id number] 6Location History: Dr. Lao Medications acetaminophen 500 [...] 04/27/22 13:48:00 EDT, Route to Pharmacy Electronically, [facility] #[id number], Partialfill upon patient request if the prescription [...] 5 Refills, Maintenance, 10/19/22 13:40:00 EDT, Tablet, [facility] #[id number], Partial fill upon patient request if the prescription is for a schedule II opioid... Start Date: 10/19/22 Stop Date: 01/11/23 Status: Ordered duloxetine 30 mg oral enteric coated capsule 1 capsule = 30 mg, By Mouth, 2 times a day, Increase in dose, # 180 capsule, 3 Refills, Maintenance, 04/27/22 13:42:00 EDT, [facility] #[id number], Partial fill upon patient request if the [...] 02/24/23 16:21:00 EDT, Route to Pharmacy Electronically, [facility] #[id number], Partial fill upon patient request if the prescription is for a schedule II opi... Start Date: 02/24/23 Stop Date: 03/03/23 Status: Ordered hydrOXYzine hydrochloride 25 mg oral tablet 1 tablet = 25 mg, By Mouth, 4 times a day, PRN for anxiety, # 40 tablet, 1 Refills, Acute 04/30/23 10:49:00 EDT, 02/28/23 10:49:00 EDT, Tablet, [facility] #[id number], Partial fill upon patient request if the prescription is for a schedule II opi... Start Date: 02/28/23 Stop Date: 04/30/23 Status: Ordered hydrOXYzine hydrochloride 25 mg oral tablet 1 tablet = 25 mg, By Mouth, 4 times a day, PRN for anxiety, # 40 tablet, 0 Refills, Maintenance, 03/08/23 11:18:00 EDT, Tablet, Partial fill upon patient request if the prescription is for a scheduleII opioid drug. Start Date: 03/08/23 Status: Ordered Ibuprofen 800 mg, 3 times a day, Refills 0, Maintenance, 03/08/23 11:19:00 EDT, Partial fill upon patient request if the prescription is for a schedule II opioid drug. Start Date: 03/08/23 Status: Ordered lisinopril 20 mg oral tablet 20 mg, 1, tablet, By Mouth, Daily, for 90 days, # 90 tablet, Refills 3, Tot. Refills 3, Physician Stop 01/21/24 12:33:00 EDT, 01/26/23 12:33:00 EDT, Route to Pharmacy Electronically, [facility] #[id number], 165, cm, 01/11/23 11:25:00 EDT, Height Start [...] claudication 1 Confirmed Active Underweight Confirmed Active 28385 CTA: IMPRESSION: 1. 70% stenosis of the [...] Safety Implantable Status Assigning Authority Unknown Unknown [id number] Unknown 11/27/26 Unknown Unknown Active Unknown Procedure Provider Procedure Date Device Type Site Repair Hernia Inguinal Open Gavino Dunlap MD 02/22/23 Un known Abdomen Device Identifier Serial Number Lot or Batch Number Manufacturing Date Expiration Date Distinct Identification Code MRI Safety Implantable Status Assigning Authority Unknown Unknown [id number] Unknown 07/30/27 Unknown Unknown Active Unknown Procedure Provider Procedure Date Device Type Site Repair Hernia Ventral Open Gavino Dunlap MD 02/22/23 Unk nown Abdomen Device Identifier Serial Number Lot or Batch Number Manufacturing Date Expiration Date Distinct Identification Code MRI Safety Implantable Status Assigning Authority Unknown Unknown [id number] Unknown 08/30/24 Unknown Unknown Active Unknown Patient Care team information Care Team Personnel Name: Beni Doshi RN Position: S RN Member Role: Primary Care Nurse Name: Ronald Heath RN Position: S RN Member Role: Primary Care Nurse Name: Kevyn Mckeon MD Position: [facility] Physician - Primary Care Member Role: PCP Address: Address: [address] [place] [id number] Name: Melissa Chau RN Position: [facility] RN Member Role: Primary Care Nurse Name: Gemini Alfaro Position: [facility] [place] Scallop Cutter Machine Member Role: Cartography Supervisor Name: Marifer Thomas RN Position: S RN Member Role: Primary Care Nurse Name: Ana Lopes RN Position: [facility] RN Member Role: Primary Care Nurse Care Team Related Persons Name: CATY LOCKWOOD Name: MARYCRUZ MANN Name: MARYCRUZ TORRES Name: NO, NONE Name: DAVID KRAFT Address: [address] [address]
--- OUTSIDE RECORDS SUMMARY | 2023-03-13 14:24 | XMS_ITS | Continuity of Care Document ---
Author Name Unknown Organization [facility] Address [address] [place] [address]- Care Team Providers Care Library Services Coordinator Name Role Phone Kevyn Mckeon MD Primary Care Physician [place] [facility] [place]28[place]19 - 12/05/19 [facility] Adult [address] [place] [address]- [facility] Attending Physician: Kevyn Mckeon MD Allergies, Adverse [...] Unknown, 0 Refills, Maintenance, 07/23/19 12:38:00 EST, [facility], 170, cm, 05/08/19 10:06:00 EST, Height Start Date: 07/23/19 Status: Ordered amoxicillin 500 mg oral capsule See Instructions, 4 capsule By Mouth Once given 1 hour prior to the procedure, # 4 capsule, 0 Refills, Soft Stop, 11/28/19 14:12:00 EDT, [facility] #[id number], 170, cm, 11/28/19 13:51:00 EDT, Height Start Date: 11/28/19 Status: Ordered dicyclomine 10 mg oral capsule 2 capsule = 20 mg, By Mouth, 3 times a day, # 540 capsule, 1 Refills, Maintenance, 07/19/19 13:00:00 EST, [facility] #[id number], 170, cm, 05/08/19 10:06:00 EST, Height Start [...] ml) bottles pre-mixed. 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 Refills 0,Maintenance, Follow instructions included per PCP office., 04/16/19 15:40:53 EDT, 2 (450 ml) bottles pre-mixed. 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., Compound Start Date: 04/16/19 Status: Ordered sertraline [...] oldest [Reference Range]: 1 Height 170 cm (11/28/19 1:51 PM) Weight 53.5 kg (11/28/19 1:51 PM) Oxygen Saturation [94-100 %] 99 % (11/28/19 1:51 PM) Pulse Rate [55-90 bpm] 71 bpm (11/28/19 1:51 PM) Body Mass Index [18.5-24.99] 18.51 (11/28/19 1:51 PM) Blood Pressure [90-138/55-84 mm Hg] 138/ 80mm Hg (11/28/19 1:51 PM) Temperature [96.8-100.4 DegF] 98.0 DegF (11/28/19 1:51 PM) Blood pressure sites Arm, right (11/28/19 1:51 PM) Temperature Route Oral (11/28/19 1:51 PM) Weight Obtained Via Standing scale (11/28/19 1:51 PM) Social History Social History Type Response Smoking Status 10 or more cigarette s (1/2 pack or more)/day in last 30 days; Other: Currently smoking about 8-10 cigarettes daily.; entered on: 08/27/19 Sex
--- OUTSIDE RECORDS SUMMARY | 2023-03-13 14:24 | XMS_ITS | Continuity of Care Document ---
Author Name Unknown Organization [facility] Address [address] [place] [address]- Care Team Providers Care Collar Sewer Name Role Phone Mike HEATH, Kevyn Gaytan Primary Care Physician [place] [facility] [place] Date(s): 05/18/21 - 06/17/21 [facility] Adult [address] [place] [address]- Allergies, Adverse Reactions, Alerts Substance Reaction Severity Status sulfa drugs Active Flonase Active Demerol HCl Active Percocet 5 Active ZyrTEC rash Active Immunizations Given and [...] 23-valent vaccine 3 07/03/00 Recorded 1Result Comment: [facility] [id number] 2Location History: Dr. Lao 3Location History: Dr. Lao Medications 4 wheeled walked with seat and brake 4 wheeled walked with seat and brake, See Instructions, # 1 each, Refills 0, Tot. Refills 0, Maintenance, DX:M81.0 4 wheeled walker with seat and brakes, HIPOLITO lifetime 99MOS [facility], 01/07/21 10:52:00 EDT, Supply Start Date: [...] 0 Refills, Maintenance, 05/10/21 14:43:00 EST, Patch, [facility] #[id number], Partial fill upon patient request if the prescription is for a schedule II opioid drug., 170, cm, 05/03/21 13:38:00 EDT,... Start Date: 05/10/21 Status: Ordered lisinopril 20 mg oral tablet See Instructions, TAKE 1 TABLET DAILY, # 90 Unknown, Refills 0, Maintenance, Instructions Replace Required Details, Route to Pharmacy Electronically, [facility], 170, cm, 12/10/20 13:41:00 EDT, Height [...] tablet, 1 Refills, Maintenance, 12/11/20 14:10:00 EDT, [facility], 170, cm, 12/10/20 13:41:00 EDT, Height Start Date: 12/11/20 Status: Ordered Standard lightweight wheel chair with brakes and foot rests Standard lightweight wheel chair with brakes and foot rests, See Instructions, # 1 each, Refills 0,Tot. Refills 0, Maintenance, DX;M81.0 Standard lightweight wheelchair with brakes and foot rests, HIPOLITO 99MOS send to [facility], 04/12/21 16:40:00 E... Start Date: [...]
--- OUTSIDE RECORDS SUMMARY | 2023-03-13 14:24 | XMS_ITS | Continuity of Care Document ---
Author Name Unknown Organization [facility] Address [address] [place] [address]- Care Team Providers Care Snow Ranger Name Role Phone Mike HEATH, Kevyn Gaytan Primary Care Physician [place] [facility] [place]21 [facility] [address] [place] [address]- Allergies, Adverse Reactions, Alerts Substance Reaction Severity [...] 23-valent vaccine 3 07/03/00 Recorded 1Result Comment: [facility] [id number] 2Location History: Dr. Lao 3Location History: Dr. [...] mL, 2 Refills, Maintenance, 11/23/20 16:34:00 EDT, [place], [facility] #[id number], Partial fill upon patient request if the prescription is for a schedule II opioid drug., 2 sprays Nares, B... Start Date: 11/23/20 Status: Ordered dicyclomine 10 mg oral capsule 2 capsule = 20 mg, By Mouth, 3 times a day, # 180 capsule, 5 Refills, Maintenance, 07/06/20 17:01:00 EST, [facility] #[id number], 170, cm, 05/11/20 13:39:00 EST, Height Start Date: 07/06/20 Status: Ordered ibuprofen 800 mg oral tablet 800 mg, 1, tablet, By Mouth, 2 times a day, # 270 tablet, Refills 1, Tot. Refills 1, Acute 05/19/2117:45:00 EST, 11/16/20 17:32:00 EDT, Route to Pharmacy Electronically, [facility] #[id number],Partial fill upon patient request if the prescripti... Start Date: 11/16/20 Stop Date: 05/19/21 Status: Ordered lidocaine 5% topical film 1 patch, Topically, Daily, PRN Pain , Mild, remove after 12 hours, # 5 patch, 0 Refills, Maintenance, 01/18/21 13:10:00 EDT, Film, [facility] #[id number], Partial fill upon patient request if the [...] ml) bottles pre-mixed. 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 Refills 0,Maintenance, Follow instructions included per PCP office., 04/16/19 15:40:53 EDT, 2 (450 ml) bottles pre-mixed. 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
--- OUTSIDE RECORDS SUMMARY | 2023-03-13 14:24 | XMS_ITS | Continuity of Care Document ---
Author Name Unknown Organization [facility] Address [address] [place] [address]- Care Team Providers Care Obgyn Specialist Name Role Phone Mike HEATH, Kevyn Gaytan Primary Care Physician En[place] [facility] [place] Date(s): 05/24/22 - 05/31/22 [facility] Adult [address] [place] [address]- Encounter Diagnosis Acute sinusitis(Discharge Diagnosis) - 05/24/22 Sore throat(Discharge Diagnosis) - 05/24/22 Attending Physician: Maya LANDIS, Annie Allergies, Adverse Reactions, Alerts Substance Reaction Severity Status sulfa drugs Active Flonase Active Demerol HCl Active Percocet 5/325 Active ZyrTEC rash Active Immunizations Given and Recorded Vaccine Date Status Refusal Reason Influenza Virus Vaccine (oldterm) 1 04/06/22 Recor ded Influenza Virus Vaccine (oldterm) 03/02/20 Recorde d [id number] 12y+ bivalent booster vax 2 04/06/22 Recorded [id number] 12y+ bivalent booster vax 3 04/06/22 Recorded [...] Comment: DUPLICATE 4Result Comment: [place] 5Result Comment: [facility] [id number] 6Location History: Dr. Lao 7Location History: Dr. Lao Medications amLODIPine 10 mg oral tablet 10 mg, 1, tablet, By Mouth, Daily, Increase in dose, # 90 tablet, Refills 3, Tot. Refills 3, Maintenance, 04/27/22 13:48:00 EDT, Route to Pharmacy Electronically, [facility] #[id number], Partialfill upon patient request if the prescription is fo... Start Date: 04/27/22 Status: Ordered duloxetine 30 mg oral enteric coated capsule 1 capsule = 30 mg, By Mouth, 2 times a day, Increase in dose, # 180 capsule, 3 Refills, Maintenance, 04/27/22 13:42:00 EDT, [facility] #[id number], Partial fill upon patient request if the prescription is for a schedule II opioid drug., 170, cm,... Start Date: 04/27/22 Status: Ordered ibuprofen 800 mg oral tablet 800 mg, 1, tablet, By Mouth, 2 times a day, # 270 tablet, Refills 1, Tot. Refills 1, Acute 11/16/2313:25:00 EDT, 11/15/22 6:26:00 EDT, Route to Pharmacy Electronically, [facility] #[id number], Partial fill upon patient request if the prescriptio... Start Date: 11/15/22 Stop Date: 11/16/22 Status: Ordered ibuprofen 800 mg oral tablet 800 mg, 1, tablet, By Mouth, 2 times a day, # 270 tablet, Refills 1, Tot. Refills 1, Acute :26:00 EDT, 11/15/21 6:26:00 EDT, Route to Pharmacy Electronically, [facility] #[id number], Partial fill upon patient request if the prescription... Start Date: 11/15/21 Stop Date: 11/15/22 Status: Ordered lidocaine 5% topical film 1 patch, Topically, Daily, PRN Pain , Mild, remove after 12 hours, # 13 each, 0 Refills, Maintenance, 09/24/21 11:47:00 EDT, Film, [facility] #[id number], Partial fill upon patient request if the prescription is for a schedule II opioid drug., 1... Start Date: 09/24/21 Status: Ordered lisinopril 20 mg oral tablet See Instructions, TAKE 1 TABLET DAILY, # 90 tablet, Refills 3, Tot. Refills 3, 11/15/21 6:27:00 EDT, Instructions Replace Required Details, Route to Pharmacy Electronically, [facility] #[id number], 170, cm, 10/25/21 16:19:00 EDT, Height Start Date: 11/15/21 Status: Ordered LORazepam 1 mg oral tablet 1 tablet = 1 mg, By Mouth, 2 times a day, PRN as needed for anxiety, # 60 tablet, 2 Refills, Maintenance, 04/11/22 6:39:00 EDT, Tablet, [facility] #[id number], 170, cm, 03/23/22 11:12:00 EDT, Height Start Date: 04/11/22 Status: Ordered methocarbamol 750 mg oral tablet 2 tablet = 1,500 mg, By Mouth, 3 times a day, PRN Pain , Moderate and spasm, # 90 tablet, 3 Refills, Acute 10/26/22 13:44:00 EDT, 04/27/22 13:43:00 EDT, [facility] #[id number], Partial fill uponpatient request if the prescription [...] Sore throat Confirmed Active Underweight Confirmed Active 03586 CTA: IMPRESSION: 1. 70% stenosis of the [...] Dates Health Status Cl inical Service Informant Acute sinusitis Discharge Diagnosis 05/24/22 Sore throat Discharge Diagnosis 05/24/22 Vital Signs Most recent to oldest [Reference Range]: 1 Height 170 cm (05/24/22 12:34 PM) Social History Social History Type Response Smoking Status 10 or more cigarette s (1/2 pack or more)/day in last 30 days; Other: Currently smoking about 8-10 cigarettes daily.; entered on: 08/27/19 Sex Patient Care team information Care Team Personnel Name: Kevyn Mckeon MD Position: [facility] Primary Care Physician Member Role: PCP Address: Address: [address] [place] [address]- Care Team Related Persons Name: MARYCRUZ MANN Name: NO, NONE Name: DAVID KRAFT Address: home [address] [place] [address] [place] [id number]
--- OUTSIDE RECORDS SUMMARY | 2023-03-13 14:24 | XMS_ITS | Continuity of Care Document ---
Author Name Unknown Organization [facility] Bryson lt Address [address] [place] [address]- Care Team Providers Care Inspector Filter Tip Name Role Phone Kevyn Mckeon MD Primary Care Physician [phone] Encounter [facility] [place] [facility] [id number] Date(s): 05/03/21 - 05/10/21 [facility] Adult [address] [place] [address]- Attending Physician: Kevyn Mckeon MD Allergies, Adverse [...] vaccine 3 07/03/00 Recorded 1Result Comment: [facility] [id number] 2Location History: Dr. Lao 3Location History: Dr. Lao Medications 4 wheeled walked with seat and brake 4 wheeled walked with seat and brake, See Instructions, # 1 each, Refills 0, Tot. Refills 0, Maintenance, DX:M81.0 4 wheeled walker with seat and brakes, HIPOLITO lifetime 99MOS [facility], 01/07/21 10:52:00 EDT, Supply Start [...] 0 Refills, Maintenance, 05/10/21 14:43:00 EST, Patch, [facility] #[id number], Partial fill upon patient request if the prescription is for a schedule II opioid drug., 170, cm, 05/03/21 13:38:00 EDT,... Start Date: 05/10/21 Status: Ordered ibuprofen 800 mg oral tablet 800 mg, 1, tablet, By Mouth, 2 times a day, # 270 tablet, Refills 1, Tot. Refills 1, Acute 05/19/2117:45:00 EST, 11/16/20 17:32:00 EDT, Route to Pharmacy Electronically, [facility] #[id number],Partial fill upon patient request if the prescripti... Start Date: 11/16/20 Stop Date: 05/19/21 Status: Ordered lisinopril 20 mg oral tablet See Instructions, TAKE 1 TABLET DAILY, # 90 Unknown, Refills 0, Maintenance, Instructions Replace Required Details, Route to Pharmacy Electronically, [facility], 170, cm, 12/10/20 13:41:00 EDT, Height [...] and foot rests, HIPOLITO 99MOS send to [facility], 04/12/21 16:40:00 E... Start Date: 04/12/21 Status: Ordered Problem List Condition Effective Dates Status Health Status Inform ant Allergic rhinitis(Confirmed) Active Oliveira's esophagus(Confirmed) Active Claudication(Confirmed) Active Osteoarthritis of both hands(Confirmed) Active Essential hypertension(Confirmed) Active IBS (irritable bowel syndrom e) with diarrhea(Confirmed) Active Major depression(Confirmed) Active Osteoporosis(Confirmed) Active Vital Signs Most recent to oldest [Reference Range]: 1 Height 170 cm (05/03/21 1:38 PM) Weight 45.7 kg (05/03/21 1:38 PM) Oxygen Saturation [94-100 %] 89 % *L* (05/03/21 1:38 PM) Pulse Rate [55-90 bpm] 97 bpm *H* (05/03/21 1:38 PM) Body Mass Index [18.5-24.99] 15.81 *L* (05/03/21 1:38 PM) Blood Pressure [90-138/55-84 mm Hg] 130/ 78mm Hg (05/03/21 1:38 PM) Temperature [96.8-100.4 DegF] 98.2 DegF (05/03/21 1:38 PM) Blood pressure sites Arm, left (05/03/21 1:38 PM) Temperature Route Oral (05/03/21 1:38 PM) Weight Obtained Via Standing scale (11/1/21 1:38 PM) Social History Social History Type Response Smoking Status 10 or more cigarette s (1/2 pack or more)/day in last 30 days; Other: Currently smoking about 8-10 cigarettes daily.; entered on: 08/27/19 Sex
--- OUTSIDE RECORDS SUMMARY | 2023-03-13 14:24 | XMS_ITS | Continuity of Care Document ---
Author Name Unknown Organization [facility] Andrew Mendez Bryson lt Address [address] [place] [address]- Care Team Providers Care Layout Technician Name Role Phone Mike HEATH, Kevyn Gaytan Primary Care Physician Encounter [facility] [place] Date(s): 08/25/22 - 09/24/22 [facility] Andrea Adult [address] [place] [address]- Allergies, Adverse Reactions, Alerts Substance Reaction Severity Status sulfa drugs Active Flonase Active Demerol HCl Active Percocet 5/325 Active ZyrTEC rash Active Immunizations Given and Recorded Vaccine Date Status Refusal Reason pneumococcal 23-valent vaccine 1 07/06/22 Given pneumococcal 23-valent vaccine 2 07/03/00 Recorded Influenza Virus Vaccine (oldterm) 3 04/06/22 Recor ded Influenza Virus Vaccine (oldterm) 03/02/20 Recorde d [id number] 12y+ bivalent booster vax 4 04/06/22 Recorded [id number] 12y+ bivalent booster vax 5 04/06/22 Recorded [...] tetanus/diphtheria/pertussis, acel(Tdap) 8 07/03/08 Recorded 1Result Comment: [id number] 2Location History: Dr. Lao 3Result Comment: Nida DUPLICATE 4Result Comment: Nida 5Result Comment: DUPLICATE 6Result Comment: NIDA 7Result Comment: [facility] [id number] 8Location History: Dr. Lao Medications amLODIPine 10 mg oral tablet 10 mg, 1, tablet, By Mouth, Daily, Increase in dose, # 90 tablet, Refills 3, Tot. Refills 3, Maintenance, 04/27/22 13:48:00 EDT, Route to Pharmacy Electronically, [facility] #[id number], Partialfill upon patient request if the prescription is fo... Start Date: 04/27/22 Status: Ordered duloxetine 30 mg oral enteric coated capsule 1 capsule = 30 mg, By Mouth, 2 times a day, Increase in dose, # 180 capsule, 3 Refills, Maintenance, 04/27/22 13:42:00 EDT, [facility] #[id number], Partial fill upon patient request if the [...] 11/15/22 6:26:00 EDT, Route to Pharmacy Electronically, [facility] #[id number], Partial fill upon patient request if the prescriptio... Start Date: 11/15/22 Stop Date: 11/16/22 Status: Ordered ibuprofen 800 mg oral tablet 800 mg, 1, tablet, By Mouth, 2 times a day, # 270 tablet, Refills 1, Tot. Refills 1, Acute :26:00 EDT, 11/15/21 6:26:00 EDT, Route to Pharmacy Electronically, [facility] #[id number], Partial fill upon patient request if the prescription... Start Date: 11/15/21 Stop Date: 11/15/22 Status: Ordered lisinopril 20 mg oral tablet See Instructions, TAKE 1 TABLET DAILY, # 90 tablet, Refills 3, Tot. Refills 3, 11/15/21 6:27:00 EDT, Instructions Replace Required Details, Route to Pharmacy Electronically, [facility] #[id number], 170, cm, 10/25/21 16:19:00 EDT, Height Start Date: 11/15/21 Status: Ordered LORazepam 1 mg oral tablet 1 tablet = 1 mg, By Mouth, 2 times a day, PRN as needed for anxiety, # 60 tablet, 2 Refills, Maintenance, 07/28/22 14:24:00 EST, Tablet, [facility] #[id number], 170, cm, 07/06/22 13:11:00 EST, Height Start [...] Maintenance, 09/22/22 5:18:00 EDT, [facility]), 170, cm, 09/07/22 11:31:00 EST, [...] claudication 1 Confirmed Active Underweight Confirmed Active 19877 CTA: IMPRESSION: 1. 70% stenosis of the [...] Team Personnel Name: Kevyn Mckeon MD Position: [facility] Primary Care Physician Member Role: PCP Address: Address: [address] [place] [address]- Care Team Related Persons Name: MARYCRUZ MANN Name: NO, NONE Name: DAVID KRAFT Address: [address] [address]
--- OUTSIDE RECORDS SUMMARY | 2023-03-13 14:24 | XMS_ITS | Continuity of Care Document ---
Author Name Unknown Organization [facility] Andrea Bryson lt Address [address] [place] [address]- Care Team Providers Care Technology Recruiter Name Role Phone Mike HEATH, Kevyn Gaytan Primary Care Physician Encounter [facility] Date(s): 07/14/22 - 08/13/22 [facility] Adult [address] [place] [address]- Allergies, Adverse Reactions, Alerts Substance Reaction Severity Status sulfa drugs Active Flonase Active Demerol HCl Active ZyrTEC rash Active Percocet 5/325 Active Immunizations Given and Recorded Vaccine Date Status Refusal Reason pneumococcal 23-valent vaccine 1 07/06/22 Given pneumococcal 23-valent vaccine 2 07/03/00 Recorded Influenza Virus Vaccine (oldterm) 3 04/06/22 Recor ded Influenza Virus Vaccine (oldterm) 03/02/20 Recorde d [id number] 12y+ bivalent booster vax 4 04/06/22 Recorded [id number] 12y+ bivalent booster vax 5 04/06/22 Recorded [...] tetanus/diphtheria/pertussis, acel(Tdap) 8 07/03/08 Recorded 1Result Comment: [id number] 2Location History: Dr. Lao 3Result Comment: Nida DUPLICATE 4Result Comment: Nida 5Result Comment: DUPLICATE 6Result Comment: NIDA 7Result Comment: [facility] [phone] 8Location History: Dr. Lao Medications amLODIPine 10 mg oral tablet 10 mg, 1, tablet, By Mouth, Daily, Increase in dose, # 90 tablet, Refills 3, Tot. Refills 3, Maintenance, 04/27/22 13:48:00 EDT, Route to Pharmacy Electronically, [facility] #[id number], Partialfill upon patient request if the prescription is fo... Start Date: 04/27/22 Status: Ordered duloxetine 30 mg oral enteric coated capsule 1 capsule = 30 mg, By Mouth, 2 times a day, Increase in dose, # 180 capsule, 3 Refills, Maintenance, 04/27/22 13:42:00 EDT, [facility] #[id number], Partial fill upon patient request if the [...] 11/15/22 6:26:00 EDT, Route to Pharmacy Electronically, [facility] #[id number], Partial fill upon patient request if the prescriptio... Start Date: 11/15/22 Stop Date: 11/16/22 Status: Ordered ibuprofen 800 mg oral tablet 800 mg, 1, tablet, By Mouth, 2 times a day, # 270 tablet, Refills 1, Tot. Refills 1, Acute :26:00 EDT, 11/15/21 6:26:00 EDT, Route to Pharmacy Electronically, [facility] #[id number], Partial fill upon patient request if the prescription... Start Date: 11/15/21 Stop Date: 11/15/22 Status: Ordered lisinopril 20 mg oral tablet See Instructions, TAKE 1 TABLET DAILY, # 90 tablet, Refills 3, Tot. Refills 3, 11/15/21 6:27:00 EDT, Instructions Replace Required Details, Route to Pharmacy Electronically, [facility][id number], 170, cm, 10/25/21 16:19:00 EDT, Height Start Date: 11/15/21 Status: Ordered LORazepam 1 mg oral tablet 1 tablet = 1 mg, By Mouth, 2 times a day, PRN as needed for anxiety, # 60 tablet, 2 Refills, Maintenance, 07/28/22 14:24:00 EST, Tablet, [facility] #[id number], 170, cm, 07/06/22 13:11:00 EST, Height Start [...] Sore throat Confirmed Active Underweight Confirmed Active 64181 CTA: IMPRESSION: 1. 70% stenosis of the [...] Team Personnel Name: Kevyn Mckeon MD Position: [facility] Primary Care Physician Member Role: PCP Address: Address: [address] [place] [address]- Care Team Related Persons Name: MARYCRUZ MANN Name: NO, NONE Name: DAVID KRAFT Address: home [address] [facility] [address] [place] [address]
--- OUTSIDE RECORDS SUMMARY | 2023-03-13 14:24 | XMS_ITS | Continuity of Care Document ---
Author Name Unknown Organization [facility] Bryson lt Address [address] [place] [address]- Care Team Providers Care Student Services Vice President Name Role Phone Mike HEATH, Kevyn Gaytan Primary Care Physician En[place] [facility] [place] Date(s): 02/16/21 - 03/18/21 [facility] Adult [address] [place] [address]- Allergies, Adverse Reactions, Alerts Substance Reaction Severity [...] vaccine 3 07/03/00 Recorded 1Result Comment: [facility] [id number] 2Location History: Dr. Lao 3Location History: Dr. [...] mL, 2 Refills, Maintenance, 11/23/20 16:34:00 EDT, [place], [facility] #[id number], Partial fill upon patient request if the prescription is for a schedule II opioid drug., 2 sprays Nares, B... Start Date: 11/23/20 Status: Ordered dicyclomine 10 mg oral capsule 2 capsule = 20 mg, By Mouth, 3 times a day, # 180 capsule, 5 Refills, Maintenance, 07/06/20 17:01:00 EST, [facility] #[id number], 170, cm, 05/11/20 13:39:00 EST, Height Start Date: 07/06/20 Status: Ordered ibuprofen 800 mg oral tablet 800 mg, 1, tablet, By Mouth, 2 times a day, # 270 tablet, Refills 1, Tot. Refills 1, Acute 05/19/2117:45:00 EST, 11/16/20 17:32:00 EDT, Route to Pharmacy Electronically, [facility] #[id number],Partial fill upon patient request if the prescripti... Start Date: 11/16/20 Stop Date: 05/19/21 Status: Ordered lidocaine 5% topical film 1 patch, Topically, Daily, PRN Pain , Mild, remove after 12 hours, # 5 patch, 0 Refills, Maintenance, 01/18/21 13:10:00 EDT, [place], [facility] #[id number], Partial fill upon patient request if the [...] ml) bottles pre-mixed. Please call pt for spanish moss picker., Compound Start Date: 04/16/19 Status: Ordered Redi-Cat-(2) two pre-mixed 450 ml bottles Redi-Cat-(2) two pre-mixed 450 ml bottles, See Instructions, # 2 bottle, Refills 0, Tot. Refills 0,Maintenance, Follow instructions included per PCP office., 04/16/19 15:40:53 EDT, 2 (450 ml) bottles pre-mixed. Please call pt for spanish moss picker., Compound Start Date: 04/16/19 Status: Ordered [...]
--- OUTSIDE RECORDS SUMMARY | 2023-03-13 14:24 | XMS_ITS | Continuity of Care Document ---
Author Name Unknown Organization [facility] Bryson lt Address [address] [place] [address]- Care Team Providers Care Corporate Associate Attorney Name Role Phone Mike HEATH, Kevyn Gaytan Primary Care Physician Encounter [facility] [place] Date(s): 09/23/21 - 10/23/21 [facility] Adult [address] [place] [address]- Allergies, Adverse Reactions, Alerts Substance Reaction Severity [...] vaccine 3 07/03/00 Recorded 1Result Comment: [facility] [id number] 2Location History: Dr. Lao 3Location History: Dr. Lao Medications 4 wheeled walked with seat and brake 4 wheeled walked with seat and brake, See Instructions, # 1 each, Refills 0, Tot. Refills 0, Maintenance, DX:M81.0 4 wheeled walker with seat and brakes, HIPOLITO lifetime 99MOS [facility], 01/07/21 10:52:00 EDT, Supply Start Date: [...] 0 Refills, Maintenance, 09/24/21 11:47:00 EDT, Film, [facility] #[id number], Partial fill upon patient request if the [...] and foot rests, HIPOLITO 99MOS send to [facility], 04/12/21 16:40:00 E... Start Date: 04/12/21 [...]
--- OUTSIDE RECORDS SUMMARY | 2023-03-13 14:24 | XMS_ITS | Continuity of Care Document ---
Author Name Unknown Organization [facility] Bryson lt Address [address] [place] [address]- Care Team Providers Care Quarry Supervisor Open Pit Name Role Phone Mike HEATH, Kevyn Gaytan Primary Care Physician En[place] [facility] [place] Date(s): 07/14/21 - 08/13/21 [facility] Adult [address] [place] [address]- Allergies, Adverse Reactions, Alerts Substance Reaction Severity [...] vaccine 3 07/03/00 Recorded 1Result Comment: [facility] [id number] 2Location History: Dr. Lao 3Location History: Dr. [...] 08/06/21 16:31:00 EST, Route to Pharmacy Electronically, [facility] #[id number], Partial fill upon patient request if the [...]
--- OUTSIDE RECORDS SUMMARY | 2023-03-13 14:24 | XMS_ITS | Continuity of Care Document ---
Author Name Unknown Organization [facility] Andrea Bryson lt Address [address] [place] [address]- Care Team Providers Care Locker Room Attendant Name Role Phone Mike HEATH, Kevyn Gaytan Primary Care Physician Encounter [facility] [place] Date(s): 09/09/22 - 10/09/22 [facility] Adult [address] [place] [address]- Allergies, Adverse Reactions, Alerts Substance Reaction Severity Status sulfa drugs Active Flonase Active Demerol HCl Active ZyrTEC rash Active Percocet 5/325 Active Immunizations Given and Recorded Vaccine Date Status Refusal Reason pneumococcal 23-valent vaccine 1 07/06/22 Given pneumococcal 23-valent vaccine 2 07/03/00 Recorded Influenza Virus Vaccine (oldterm) 3 04/06/22 Recor ded Influenza Virus Vaccine (oldterm) 03/02/20 Recorde d [id number] 12y+ bivalent booster vax 4 04/06/22 Recorded [id number] 12y+ bivalent booster vax 5 04/06/22 Recorded [...] tetanus/diphtheria/pertussis, acel(Tdap) 8 07/03/08 Recorded 1Result Comment: [id number] 2Location History: Dr. Lao 3Result Comment: Nida DUPLICATE 4Result Comment: Nida 5Result Comment: DUPLICATE 6Result Comment: DEMETRIAS 7Result Comment: [facility] [id number] 8Location History: Dr. Lao Medications amLODIPine 10 mg oral tablet 10 mg, 1, tablet, By Mouth, Daily, Increase in dose, # 90 tablet, Refills 3, Tot. Refills 3, Maintenance, 04/27/22 13:48:00 EDT, Route to Pharmacy Electronically, [facility] #[id number], Partialfill upon patient request if the prescription is fo... Start Date: 04/27/22 Status: Ordered dicyclomine 10 mg oral capsule 1 capsule = 10 mg, By Mouth, 4 times a day, # 56 capsule, 3 Refills, Maintenance, 09/29/22 6:39:00 EDT, Capsule, [facility] #[id number], Partial fill upon patient request if the prescription is for a schedule II opioid drug., 170, cm, 09/07/22 11... Start Date: 09/29/22 Stop Date: 11/24/22 Status: Ordered duloxetine 30 mg oral enteric coated capsule 1 capsule = 30 mg, By Mouth, 2 times a day, Increase in dose, # 180 capsule, 3 Refills, Maintenance, 04/27/22 13:42:00 EDT, [facility] #[id number], Partial fill upon patient request if the [...] 11/15/22 6:26:00 EDT, Route to Pharmacy Electronically, [facility] #[id number], Partial fill upon patient request if the prescriptio... Start Date: 11/15/22 Stop Date: 11/16/22 Status: Ordered ibuprofen 800 mg oral tablet 800 mg, 1, tablet, By Mouth, 2 times a day, # 270 tablet, Refills 1, Tot. Refills 1, Acute 236:26:00 EDT, 11/15/21 6:26:00 EDT, Route to Pharmacy Electronically, [facility] #[id number], Partial fill upon patient request if the prescription... Start Date: 11/15/21 Stop Date: 11/15/22 Status: Ordered lisinopril 20 mg oral tablet See Instructions, TAKE 1 TABLET DAILY, # 90 tablet, Refills 3, Tot. Refills 3, 11/15/21 6:27:00 EDT, Instructions Replace Required Details, Route to Pharmacy Electronically, [facility] #[id number], 170, cm, 10/25/21 16:19:00 EDT, Height Start Date: 11/15/21 Status: Ordered LORazepam 1 mg oral tablet 1 tablet = 1 mg, By Mouth, 2 times a day, PRN as needed for anxiety, # 60 tablet, 2 Refills, Maintenance, 07/28/22 14:24:00 EST, Tablet, [facility] #[id number], 170, cm, 07/06/22 13:11:00 EST, Height Start [...] Maintenance, 09/22/22 5:18:00 EDT, [facility]), 170, cm, 09/07/22 11:31:00 EST, [...] claudication 1 Confirmed Active Underweight Confirmed Active 26943 CTA: IMPRESSION: 1. 70% stenosis of the [...] Care Physician Member Role: PCP Address: Address: [address] [place] [address]- Care Team Related Persons Name: MARYCRUZ MANN Name: NO, NONE Name: DAVID KRAFT Address: home [address] [facility] [address] [place] [address]
--- OUTSIDE RECORDS SUMMARY | 2023-03-13 14:24 | XMS_ITS | Continuity of Care Document ---
Author Name Unknown Organization [facility] Address [address] [place] [address]- Care Team Providers Care Sales Development Manager Name Role Phone Kevyn Mckeon MD Primary Care Physician [phone] Encounter 05/04/22 - 05/11/22 [facility] [place] [address], [address] [place] [address]- Attending Physician: Kevyn Mckeon MD Admitting Physician: Kevyn Mckeon MD Referring Physician: Kevyn Mckeon MD Allergies, Adverse Reactions, Alerts Substance Reaction Severity Status sulfa drugs Active Flonase Active Demerol HCl Active Percocet 5/325 Active ZyrTEC rash Active Immunizations Given and Recorded Vaccine Date Status Refusal Reason Influenza Virus Vaccine (oldterm) 1 04/06/22 Recor ded Influenza Virus Vaccine (oldterm) 03/02/20 Recorde d [id number] 12y+ bivalent booster vax 2 04/06/22 Recorded [id number] 12y+ bivalent booster vax 3 04/06/22 Recorded [...] 4Result Comment: NIDA 5Result Comment: [facility] [id number] 6Location History: Dr. Lao 7Location History: Dr. Lao Medications amLODIPine 10 mg oral tablet 10 mg, 1, tablet, By Mouth, Daily, Increase in dose, # 90 tablet, Refills 3, Tot. Refills 3, Maintenance, 04/27/22 13:48:00 EDT, Route to Pharmacy Electronically, [facility] #[id number], Partialfill upon patient request if the prescription is fo... Start Date: 04/27/22 Status: Ordered duloxetine 30 mg oral enteric coated capsule 1 capsule = 30 mg, By Mouth, 2 times a day, Increase in dose, # 180 capsule, 3 Refills, Maintenance, 04/27/22 13:42:00 EDT, [facility] #[id number], Partial fill upon patient request if the prescription is for a schedule II opioid drug., 170, cm,... Start Date: 04/27/22 Status: Ordered ibuprofen 800 mg oral tablet 800 mg, 1, tablet, By Mouth, 2 times a day, # 270 tablet, Refills 1, Tot. Refills 1, Acute 236:26:00 EDT, 11/15/21 6:26:00 EDT, Route to Pharmacy Electronically, [facility] #[id number], Partial fill upon patient request if the prescription... Start Date: 11/15/21 Stop Date: 11/15/22 Status: Ordered lidocaine 5% topical film 1 patch, Topically, Daily, PRN Pain , Mild, remove after 12 hours, # 13 each, 0 Refills, Maintenance, 09/24/21 11:47:00 EDT, Film, [facility] #[id number], Partial fill upon patient request if the prescription is for a schedule II opioid drug., 1... Start Date: 09/24/21 Status: Ordered lisinopril 20 mg oral tablet See Instructions, TAKE 1 TABLET DAILY, # 90 tablet, Refills 3, Tot. Refills 3, 11/15/21 6:27:00 EDT, Instructions Replace Required Details, Route to Pharmacy Electronically, [facility] #[id number], 170, cm, 10/25/21 16:19:00 EDT, Height Start Date: 11/15/21 Status: Ordered LORazepam 1 mg oral tablet 1 tablet = 1 mg, By Mouth, 2 times a day, PRN as needed for anxiety, # 60 tablet, 2 Refills, Maintenance, 04/11/22 6:39:00 EDT, Tablet, [facility][id number], 170, cm, 03/23/22 11:12:00 EDT, Height Start Date: 04/11/22 Status: Ordered methocarbamol 750 mg oral tablet 2 tablet = 1,500 mg, By Mouth, 3 times a day, PRN Pain , Moderate and spasm, # 90 tablet, 3 Refills, Acute 10/26/22 13:44:00 EDT, 04/27/22 13:43:00 EDT, [facility] #[id number], Partial fill uponpatient request if the prescription [...] claudication 1 Confirmed Active Underweight Confirmed Active 35902 CTA: IMPRESSION: 1. 70% stenosis of the [...] Exam Date Time Procedure Performing Provider Status 05/04/22 2:10 PM MM Digital Mammo Screening Angela Escalona son; Auth (Verified) Notes: (MM Digital Mammo Screening) Reason For Exam: Screening RESULT: MM Digital Mammo Screening PROCEDURE: MM Digital Mammo Screening INDICATION: Screening for breast cancer. No known palpable abnormalities. Mother with breast cancerat age 85. COMPARISON: 05/04/2020 and multiple prior studies. TECHNIQUE: Full-field digital CC and MLO 3D tomosynthesis images of both breasts were acquired. Computer-aided detection (CAD) was utilized in the interpretation of this study. DENSITY: The breast tissue contains scattered areas of fibroglandular density. FINDINGS: No suspicious masses, suspicious microcalcifications, or areas of architectural distortion are seen in either breast to suggest malignancy. IMPRESSION: No mammographic evidence of malignancy. RECOMMENDATION: Annual mammographic screening BI-RADS: 1 (Negative) Lay letter mailed to patient WSN: [id number] Ordering Physician: Kevyn Mckeon Dictated By: Priscilla Sweet MD Dictated Date/Time: 05/04/22 4:55 pm Reviewed By: Priscilla Sweet MD Signed By: Priscilla Sweet MD Signed Date/Time: 05/04/22 4:55 pm Transcribed By: RON Senior Risk Analyst Date/Time: 05/04/22 4:53 pm Birads: Social History Social History Type Response Smoking Status 10 or more cigarette s (1/2 pack or more)/day in last 30 days; Other: Currently smoking about 8-10 cigarettes daily.; entered on: 08/27/19 Sex MG Breast Screening * [facility] , CIS S: TRANSCRIBE Priscilla Sweet MD: VERIFY Event Display: Result: Authored Date: [id number] PROCEDURE: MM Digital Mammo Screening INDICATION: Screening for breast cancer. No known palpable abnormalities. Mother with breast cancerat age 85. COMPARISON: 05/04/2020 and multiple prior studies. TECHNIQUE: Full-field digital CC and MLO 3D tomosynthesis images of both breasts were acquired. Computer-aided detection (CAD) was utilized in the interpretation of this study. DENSITY: The breast tissue contains scattered areas of fibroglandular density. FINDINGS: No suspicious masses, suspicious microcalcifications, or areas of architectural distortion are seen in either breast to suggest malignancy. IMPRESSION: No mammographic evidence of malignancy. RECOMMENDATION: Annual mammographic screening BI-RADS: 1 (Negative) Lay letter mailed to patient WSN: [id number] Ordering Physician: Kevyn Mckeon Dictated By: Priscilla Sweet MD Dictated Date/Time: 05/04/22 4:55 pm Reviewed By: Priscilla Sweet MD Signed By: Priscilla Sweet MD Signed Date/Time: 05/04/22 4:55 pm Transcribed By: RON Senior Risk Analyst Date/Time: 05/04/22 4:53 pm Birads: Patient Care team information Care Team Personnel Name: Kevyn Mckeon MD Position: S Primary Care Physician Member Role: PCP Address: Address: [address] [place] [address]- Care Team Related Persons Name: MARYCRUZ MANN Name: NO, NONE Name: DAVID KRAFT Address: home [address] [place] [address]
--- OUTSIDE RECORDS SUMMARY | 2023-03-13 14:24 | XMS_ITS | Continuity of Care Document ---
Author Name Unknown Organization [facility] Address [address] [place] [address]- Care Team Providers Care Vending Machine Assembler Name Role Phone Mike HEATH, Kevyn Gaytan Primary Care Physician [place] [facility] [place]/21 [facility] Adult [address] [place] [address]- Allergies, Adverse Reactions, Alerts Substance Reaction Severity [...] Recorded 1Result Comment: [facility] [id number] 2Location History: Dr. Lao 3Location History: Dr. [...] 11/15/21 6:26:00 EDT, Route to Pharmacy Electronically, [facility] #[id number], Partial fill upon patient request if the prescription... Start Date: 11/15/21 Stop Date: 11/15/22 Status: Ordered lidocaine 5% topical film 1 patch, Topically, Daily, PRN Pain , Mild, remove after 12 hours, # 13 each, 0 Refills, Maintenance, 09/24/21 11:47:00 EDT, Film, [facility] #[id number], Partial fill upon patient request if the prescription is for a schedule II opioid drug., 1... Start Date: 09/24/21 Status: Ordered lisinopril 20 mg oral tablet See Instructions, TAKE 1 TABLET DAILY, # 90 tablet, Refills 3, Tot. Refills 3, 11/15/21 6:27:00 EDT, Instructions Replace Required Details, Route to Pharmacy Electronically, [facility] #[id number], 170, cm, 10/25/21 16:19:00 EDT, Height Start [...] and foot rests, HIPOLITO 99MOS send to [facility], 04/12/21 16:40:00 E... Start Date: 04/12/21 Status: Ordered triamcinolone 0.1% topical cream 1 application, Topically, 2 times a day, for 14 days, # 60 Gm, 1 Refills, Acute 01/12/22 13:21:00 EDT, 12/15/21 13:21:00 EDT, Cream, [facility] #[id number], Partial fill upon patient request if the [...] ease) with claudication(Confirmed) 1 Active Underweight(Confirmed) Active 07534 CTA: IMPRESSION: 1. 70% stenosis of the [...]
--- OUTSIDE RECORDS SUMMARY | 2023-03-13 14:24 | XMS_ITS | Continuity of Care Document ---
Author Name Unknown Organization [facility] Address [address] [place] [address]- Care Team Providers Care Rod Hanger Name Role Phone Kevyn Mckeon MD Primary Care Physician Encounter [facility] [place] [facility] [id number] Date(s): 03/02/20 - 03/09/20 [facility] Adult [address] [place] [address]- [facility] Attending Physician: Kevyn Mckeon MD Allergies, Adverse [...] capsule, 1 Refills, Maintenance, 07/19/19 13:00:00 EST, [facility] #[id number], 170, cm, 05/08/19 10:06:00 EST, Height Start [...] ml) bottles pre-mixed. Please call pt for scrap picker., Compound Start Date: 04/16/19 Status: Ordered Redi-Cat-(2) two pre-mixed 450 ml bottles Redi-Cat-(2) two pre-mixed 450 ml bottles, See Instructions, # 2 bottle, Refills 0, Tot. Refills 0,Maintenance, Follow instructions included per PCP office., 04/16/19 15:40:53 EDT, 2 (450 ml) bottles pre-mixed. Please call pt for scrap picker., Compound Start Date: 04/16/19 Status: Ordered [...] oldest [Reference Range]: 1 Height 170 cm (03/02/20 1:50 PM) Weight 53.5 kg (03/02/20 1:50 PM) Oxygen Saturation [94-100 %] 99 % (03/02/20 1:50 PM) Pulse Rate [55-90 bpm] 59 bpm (03/02/20 1:50 PM) Body Mass Index [18.5-24.99] 18.51 (03/02/20 1:50 PM) Blood Pressure [90-138/55-84 mm Hg] 130/ 70mm Hg (03/02/20 1:50 PM) Temperature [96.8-100.4 DegF] 98.3 DegF (03/02/20 1:50 PM) Mode of Delivery (Oxygen) Room air (03/02/20 1:50 PM) Blood pressure sites Arm, right (03/02/20 1:50 PM) Temperature Route Oral (03/02/20 1:50 PM) Weight Obtained Via Standing scale (03/02/20 1:50 PM) Social History Social History Type Response Smoking Status 10 or more cigarette s (1/2 pack or more)/day in last 30 days; Other: Currently smoking about 8-10 cigarettes daily.; entered on: 08/27/19 Sex
--- OUTSIDE RECORDS SUMMARY | 2023-03-13 14:24 | XMS_ITS | Continuity of Care Document ---
Author Name Unknown Organization [facility] Address [address] [place] [address]- Care Team Providers Care Cissp Name Role Phone Mike HEATH, Kevyn Gaytan Primary Care Physician [phone] [place] [facility] [place](s): 05/24/22 - 06/23/22 [facility] Adult [address] [place] [address]- Attending Physician: Nessa Rouse Admitting Physician: AdmtrNessa Referring Physician: Admtr, Ar8 Allergies, Adverse Reactions, Alerts Substance Reaction Severity Status sulfa drugs Active Flonase Active ZyrTEC rash Active Demerol HCl Active Percocet 5/325 Active Immunizations Given and Recorded Vaccine Date Status Refusal Reason Influenza Virus Vaccine (oldterm) 1 04/06/22 Recor ded Influenza Virus Vaccine (oldterm) 03/02/20 Recorde d [id number] 12y+ bivalent booster vax 2 04/06/22 Recorded [id number] 12y+ bivalent booster vax 3 04/06/22 Recorded [...] Comment: DUPLICATE 4Result Comment: NIDA 5Result Comment: [facility] [id number] 6Location History: Dr. Lao 7Location History: Dr. Lao Medications amLODIPine 10 mg oral tablet 10 mg, 1, tablet, By Mouth, Daily, Increase in dose, # 90 tablet, Refills 3, Tot. Refills 3, Maintenance, 04/27/22 13:48:00 EDT, Route to Pharmacy Electronically, [facility] #[id number], Partialfill upon patient request if the prescription is fo... Start Date: 04/27/22 Status: Ordered duloxetine 30 mg oral enteric coated capsule 1 capsule = 30 mg, By Mouth, 2 times a day, Increase in dose, # 180 capsule, 3 Refills, Maintenance, 04/27/22 13:42:00 EDT, [facility] #[id number], Partial fill upon patient request if the prescription is for a schedule II opioid drug., 170, cm,... Start Date: 04/27/22 Status: Ordered ibuprofen 800 mg oral tablet 800 mg, 1, tablet, By Mouth, 2 times a day, # 270 tablet, Refills 1, Tot. Refills 1, Acute 11/16/2313:25:00 EDT, 11/15/22 6:26:00 EDT, Route to Pharmacy Electronically, [facility] #[id number], Partial fill upon patient request if the prescriptio... Start Date: 11/15/22 Stop Date: 11/16/22 Status: Ordered ibuprofen 800 mg oral tablet 800 mg, 1, tablet, By Mouth, 2 times a day, # 270 tablet, Refills 1, Tot. Refills 1, Acute :26:00 EDT, 11/15/21 6:26:00 EDT, Route to Pharmacy Electronically, [facility] #[id number], Partial fill upon patient request if the prescription... Start Date: 11/15/21 Stop Date: 11/15/22 Status: Ordered lidocaine 5% topical film 1 patch, Topically, Daily, PRN Pain , Mild, remove after 12 hours, # 13 each, 0 Refills, Maintenance, 09/24/21 11:47:00 EDT, Film, [facility] #[id number], Partial fill upon patient request if the prescription is for a schedule II opioid drug., 1... Start Date: 09/24/21 Status: Ordered lisinopril 20 mg oral tablet See Instructions, TAKE 1 TABLET DAILY, # 90 tablet, Refills 3, Tot. Refills 3, 11/15/21 6:27:00 EDT, Instructions Replace Required Details, Route to Pharmacy Electronically, [facility] #[id number], 170, cm, 10/25/21 16:19:00 EDT, Height Start Date: 11/15/21 Status: Ordered LORazepam 1 mg oral tablet 1 tablet = 1 mg, By Mouth, 2 times a day, PRN as needed for anxiety, # 60 tablet, 2 Refills, Maintenance, 04/11/22 6:39:00 EDT, Tablet, [facility] #[id number], 170, cm, 03/23/22 11:12:00 EDT, Height Start Date: 04/11/22 Status: Ordered methocarbamol 750 mg oral tablet 2 tablet = 1,500 mg, By Mouth, 3 times a day, PRN Pain , Moderate and spasm, # 90 tablet, 3 Refills, Acute 10/26/22 13:44:00 EDT, 04/27/22 13:43:00 EDT, [facility] #[id number], Partial fill uponpatient request if the prescription [...] Sore throat Confirmed Active Underweight Confirmed Active 79142 CTA: IMPRESSION: 1. 70% stenosis of the [...] Personnel Name: Mike HEATH, Kevyn Gaytan Position: [facility] Primary Care Physician Member Role: PCP Address: Address: [address] [place] [address]- Care Team Related Persons Name: MARYRCUZ MANN Name: NO, NONE Name: DAVID KRAFT Address: home [address] [address]
--- OUTSIDE RECORDS SUMMARY | 2023-03-13 14:24 | XMS_ITS | Continuity of Care Document ---
Author Name Unknown Organization [facility] Address [address] [place] [address]- Care Team Providers Care Precast Worker Name Role Phone Mike HEATH, Kevyn Gaytan Primary Care Physician [phone] Encounter [facility] [place] Date(s): 10/15/21 - 11/14/21 [facility] Adult [address] [place] [address]- Allergies, Adverse Reactions, Alerts Substance Reaction Severity [...] Recorded 1Result Comment: [facility] [id number] 2Location History: Dr. Lao 3Location History: Dr. Lao Medications 4 wheeled walked with seat and brake 4 wheeled walked with seat and brake, See Instructions, # 1 each, Refills 0, Tot. Refills 0, Maintenance, DX:M81.0 4 wheeled walker with seat and brakes, HIPOLITO lifetime 99MOS [facility], 01/07/21 10:52:00 EDT, Supply Start [...] 0 Refills, Maintenance, 09/24/21 11:47:00 EDT, Film, [facility] #[id number], Partial fill upon patient request if the [...] rests, HIPOLITO 99MOS send to [facility], 04/12/21 16:40:00 E... Start Date: 04/12/21 Status: [...]
--- OUTSIDE RECORDS SUMMARY | 2023-03-13 14:24 | XMS_ITS | Continuity of Care Document ---
Author Name Unknown Organization [facility] Address [address] [place] [address]- Care Team Providers Care Network Control Supervisor Name Role Phone Kevyn Mckeon MD Primary Care Physician En[place] [facility] [place] Date(s): 07/19/19 - 07/26/19 [facility] Adult [address] [place] [address]- [facility] Attending Physician: Elda Galan NP Referring Physician: Kevyn Mckeon MD Allergies, Adverse [...] Unknown, 0 Refills, Maintenance, 07/23/19 12:38:00 EST, [facility], 170, cm, 05/08/19 10:06:00 EST, Height Start Date: 07/23/19 Status: Ordered dicyclomine 10 mg oral capsule 2 capsule = 20 mg, By Mouth, 3 times a day, # 540 capsule, 1 Refills, Maintenance, 07/19/19 13:00:00 EST, [facility] #[id number], 170, cm, 05/08/19 10:06:00 EST, Height Start Date: 07/19/19 Status: Ordered lisinopril 40 mg oral tablet [...] (1/2 pack or more)/day in last 30 days entered on: 07/09/18 Sex
--- OUTSIDE RECORDS SUMMARY | 2023-03-13 14:25 | XMS_ITS | Continuity of Care Document ---
Author Name Unknown Organization [facility] Address [address] [place] [address]- Care Team Providers Care Commercial Baker Helper Name Role Phone Mike HEATH, Kevyn Gaytan Primary Care Physician Encounter [facility] [place] Date(s): 09/15/22 - 10/15/22 [facility] Adult [address] [place] [address]- Allergies, Adverse Reactions, Alerts Substance Reaction Severity Status sulfa drugs Active Flonase Active Demerol HCl Active Percocet 5/325 Active ZyrTEC rash Active Immunizations Given and Recorded Vaccine Date Status Refusal Reason pneumococcal 23-valent vaccine 1 07/06/22 Given pneumococcal 23-valent vaccine 2 07/03/00 Recorded Influenza Virus Vaccine (oldterm) 3 04/06/22 Recor ded Influenza Virus Vaccine (oldterm) 03/02/20 Recorde d [id number] 12y+ bivalent booster vax 4 04/06/22 Recorded [id number] 12y+ bivalent booster vax 5 04/06/22 Recorded [...] tetanus/diphtheria/pertussis, acel(Tdap) 8 07/03/08 Recorded 1Result Comment: [id number] 2Location History: Dr. Lao 3Result Comment: Nida DUPLICATE 4Result Comment: Nida 5Result Comment: DUPLICATE 6Result Comment: DEMETRIAS 7Result Comment: [facility] [id number] 8Location History: Dr. Lao Medications amLODIPine 10 mg oral tablet 10 mg, 1, tablet, By Mouth, Daily, Increase in dose, # 90 tablet, Refills 3, Tot. Refills 3, Maintenance, 04/27/22 13:48:00 EDT, Route to Pharmacy Electronically, [facility] #[id number], Partialfill upon patient request if the prescription is fo... Start Date: 04/27/22 Status: Ordered dicyclomine 10 mg oral capsule 1 capsule = 10 mg, By Mouth, 4 times a day, # 56 capsule, 3 Refills, Maintenance, 09/29/22 6:39:00 EDT, Capsule, [facility] #[id number], Partial fill upon patient request if the prescription is for a schedule II opioid drug., 170, cm, 09/07/22 11... Start Date: 09/29/22 Stop Date: 11/24/22 Status: Ordered duloxetine 30 mg oral enteric coated capsule 1 capsule = 30 mg, By Mouth, 2 times a day, Increase in dose, # 180 capsule, 3 Refills, Maintenance, 04/27/22 13:42:00 EDT, [facility] #[id number], Partial fill upon patient request if the [...] 11/15/22 6:26:00 EDT, Route to Pharmacy Electronically, [facility] #[id number], Partial fill upon patient request if the prescriptio... Start Date: 11/15/22 Stop Date: 11/16/22 Status: Ordered ibuprofen 800 mg oral tablet 800 mg, 1, tablet, By Mouth, 2 times a day, # 270 tablet, Refills 1, Tot. Refills 1, Acute 236:26:00 EDT, 11/15/21 6:26:00 EDT, Route to Pharmacy Electronically, [facility] #[id number], Partial fill upon patient request if the prescription... Start Date: 11/15/21 Stop Date: 11/15/22 Status: Ordered lisinopril 20 mg oral tablet See Instructions, TAKE 1 TABLET DAILY, # 90 tablet, Refills 3, Tot. Refills 3, 11/15/21 6:27:00 EDT, Instructions Replace Required Details, Route to Pharmacy Electronically, [facility] #[id number], 170, cm, 10/25/21 16:19:00 EDT, Height Start Date: 11/15/21 Status: Ordered LORazepam 1 mg oral tablet 1 tablet = 1 mg, By Mouth, 2 times a day, PRN as needed for anxiety, # 60 tablet, 2 Refills, Maintenance, 07/28/22 14:24:00 EST, Tablet, [facility] #[id number], 170, cm, 07/06/22 13:11:00 EST, Height Start [...] Maintenance, 09/22/22 5:18:00 EDT, [facility]), 170, cm, 09/07/22 11:31:00 EST, [...] claudication 1 Confirmed Active Underweight Confirmed Active 29313 CTA: IMPRESSION: 1. 70% stenosis of the [...] Care Physician Member Role: PCP Address: Address: [address] [place] [address]- Care Team Related Persons Name: MARYCRUZ MANN Name: NO, NONE Name: DAVID KRAFT Address: home [address] [facility] [address] [place] [address]
--- OUTSIDE RECORDS SUMMARY | 2023-03-13 14:25 | XMS_ITS | Continuity of Care Document ---
Author Name Unknown Organization [facility] Address [address] [place] [address]- Care Team Providers Care Movie Editor Name Role Phone Mike HEATH, Kevyn Gaytan Primary Care Physician [place] [facility] [place] 11/12/21 - 12/12/21 [facility] Adult [address] [place] [address]- Allergies, Adverse Reactions, Alerts Substance Reaction Severity [...] Recorded 1Result Comment: [facility] [id number] 2Location History: Dr. Lao 3Location History: Dr. Lao Medications 4 wheeled walked with seat and brake 4 wheeled walked with seat and brake, See Instructions, # 1 each, Refills 0, Tot. Refills 0, Maintenance, DX:M81.0 4 wheeled walker with seat and brakes, HIPOLITO lifetime 99MOS [facility], 01/07/21 10:52:00 EDT, Supply Start [...] 11/15/21 6:26:00 EDT, Route to Pharmacy Electronically, [facility] #[id number], Partial fill upon patient request if the prescription... Start Date: 11/15/21 Stop Date: 11/15/22 Status: Ordered lidocaine 5% topical film 1 patch, Topically, Daily, PRN Pain , Mild, remove after 12 hours, # 13 each, 0 Refills, Maintenance, 09/24/21 11:47:00 EDT, Film, [facility] #[id number], Partial fill upon patient request if the prescription is for a schedule II opioid drug., 1... Start Date: 09/24/21 Status: Ordered lisinopril 20 mg oral tablet See Instructions, TAKE 1 TABLET DAILY, # 90 tablet, Refills 3, Tot. Refills 3, 11/15/21 6:27:00 EDT, Instructions Replace Required Details, Route to Pharmacy Electronically, [facility] #[id number], 170, cm, 10/25/21 16:19:00 EDT, Height Start [...] ease) with claudication(Confirmed) 1 Active Underweight(Confirmed) Active 01568 CTA: IMPRESSION: 1. 70% stenosis of the [...]
--- OUTSIDE RECORDS SUMMARY | 2023-03-13 14:25 | XMS_ITS | Continuity of Care Document ---
Author Name Unknown Organization [facility] Bryson lt Address [address] [place] [address]- Care Team Providers Care Classifier Name Role Phone Kevyn Mckeon MD Primary Care Physician Encounter [facility] [id number] Date(s): 10/19/22 - 10/26/22 [facility] Adult [address] [place] [address]- Attending Physician: Kevyn Mckeon MD Allergies, Adverse Reactions, Alerts Substance Reaction Severity Status sulfa drugs Active Flonase Active Demerol HCl Active Percocet 5/325 Active ZyrTEC rash Active Immunizations Given and Recorded Vaccine Date Status Refusal Reason pneumococcal 23-valent vaccine 1 07/06/22 Given pneumococcal 23-valent vaccine 2 07/03/00 Recorded Influenza Virus Vaccine (oldterm) 3 04/06/22 Recor ded Influenza Virus Vaccine (oldterm) 03/02/20 Recorde d [id number] 12y+ bivalent booster vax 4 04/06/22 Recorded [id number] 12y+ bivalent booster vax 5 04/06/22 Recorded [...] tetanus/diphtheria/pertussis, acel(Tdap) 8 07/03/08 Recorded 1Result Comment: [phone] 2Location History: Dr. Lao 3Result Comment: Nida DUPLICATE 4Result Comment: Nida 5Result Comment: DUPLICATE 6Result Comment: NIDA 7Result Comment: [facility] [phone] 8Location History: Dr. Lao Medications amLODIPine 10 mg oral tablet 10 mg, 1, tablet, By Mouth, Daily, Increase in dose, # 90 tablet, Refills 3, Tot. Refills 3, Maintenance, 04/27/22 13:48:00 EDT, Route to Pharmacy Electronically, [facility] #[id number], Partialfill upon patient request if the prescription is fo... Start Date: 04/27/22 Status: Ordered dicyclomine 10 mg oral capsule 1 capsule = 10 mg, By Mouth, 4 times a day, for 14 days, # 56 capsule, 3 Refills, Hard Stop 11/24/22 6:39:00 EDT, 09/29/22 6:39:00 EDT, Capsule, [facility] #[id number], Partial fill upon patientrequest if the prescription is for a schedule II op... Start Date: 09/29/22 Stop Date: 11/24/22 Status: Ordered dicyclomine 20 mg oral tablet 1 tablet = 20 mg, By Mouth, 4 times a day, PRN spasm, Increase in dose, # 56 tablet, 5 Refills, Maintenance, 10/19/22 13:40:00 EDT, Tablet, [facility] #[id number], Partial fill upon patient request if the prescription is for a schedule II opioid... Start Date: 10/19/22 Stop Date: 01/11/23 Status: Ordered duloxetine 30 mg oral enteric coated capsule 1 capsule = 30 mg, By Mouth, 2 times a day, Increase in dose, # 180 capsule, 3 Refills, Maintenance, 04/27/22 13:42:00 EDT, [facility] #[id number], Partial fill upon patient request if the [...] 11/15/22 6:26:00 EDT, Route to Pharmacy Electronically, [facility] #[id number], Partial fill upon patient request if the prescriptio... Start Date: 11/15/22 Stop Date: 11/16/22 Status: Ordered ibuprofen 800 mg oral tablet 800 mg, 1, tablet, By Mouth, 2 times a day, # 270 tablet, Refills 1, Tot. Refills 1, Acute :26:00 EDT, 11/15/21 6:26:00 EDT, Route to Pharmacy Electronically, [facility] #[id number], Partial fill upon patient request if the prescription... Start Date: 11/15/21 Stop Date: 11/15/22 Status: Ordered lisinopril 20 mg oral tablet See Instructions, TAKE 1 TABLET DAILY, # 90 tablet, Refills 3, Tot. Refills 3, 11/15/21 6:27:00 EDT, Instructions Replace Required Details, Route to Pharmacy Electronically, [facility] #[id number], 170, cm, 10/25/21 16:19:00 EDT, Height Start [...] 2 Refills, Maintenance, 07/28/22 14:24:00 EST, Tablet, [facility] #[id number], 170, cm, 07/06/22 13:11:00 EST, Height Start [...] Condition Confirmation Course Effective Dates Status H ealt Status Informant Allergic rhinitis Confirmed Active Oliveira's [...] claudication 1 Confirmed Active Underweight Confirmed Active 87800 CTA: IMPRESSION: 1. 70% stenosis of the [...] [Reference Range]: 1 2 Height 170 cm (10/19/22 1:31 PM) 170 cm (10/19/22 1:14 PM) Weight 47.6 kg (10/19/22 1:14 PM) Oxygen Saturation [94-100 %] 100 % (10/19/22 1:14 PM) Pulse Rate [55-90 bpm] 67 bpm (10/19/22 1:14 PM) Body Mass Index [18.5-24.99 kg/m2] 16.47 kg/m2 *L* (10/19/22 1:14 PM) Blood Pressure [90-138/55-84 mm Hg] 135/ 74mm Hg (10/19/22 1:31 PM) 146/89mm Hg *H* (10/19/22 1:14 PM) Mode of Delivery (Oxygen) Room air (10/19/22 1:14 PM) Blood pressure sites Arm, left (10/19/22 1:31 PM) Arm, left (10/19/22 1:14 PM) Weight Obtained Via Standing scale (10/19/22 1:14 PM) Social History Social History Type Response Smoking Status 10 or more cigarette s (1/2 pack or more)/day in last 30 days; Other: Currently smoking about 8-10 cigarettes daily.; entered on: 08/27/19 Sex Note * Grecia Campos: PERFORM, SIGN, VERIFY Event Display: Patient Education/Instruction Authored Date: [id number] [facility] *BMP So Andrea [place] Clinical Summary Name ANAND KRAFT Age 72 Years 1950 PCP Mike HEATH, [id number] Date 10/19/2022 13:11:00 Additional Instructions: Scheduled Appointments?? Future Appointments ?No Future Appointments Scheduled Follow-Up Instructions ?? 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 Discuss any questions related to medications with your provider. Medications to Continue Taking That Have Changed [facility] #[id number], [address], [place] [id number], [phone] - Dicyclomine (dicyclomine 20 mg oral tablet) 1 tab(s) Oral 4 times a day as needed spasm for 14 Days. Increase in dose. Refills: 5. Next Dose: These medications were not printed or sent to your pharmacy - Acetaminophen (Tylenol Extra Strength 500 mg oral tablet) 1 tab(s) Oral twice a day. Next Dose: - Dicyclomine (dicyclomine 10 mg oral capsule) 1 capsule Oral 4 times a day for 14 Days. Refills: 3. Next Dose: Medications to Continue with No Changes These [...] needed for anxiety. Refills: 2. Next Dose: Lorazepam (LORazepam 1 mg oral tablet) 1 tab(s) Oral 3 times a day. Next Dose: Magnesium Oxide 400 Milligram Oral. Next Dose: Miscellaneous Rx (Misc Rx) probiotic. Next Dose: Miscellaneous Rx (Redi-cat pre-mixed oral prep need 2 450ml bottles) drink 1 bottle 6 hours prior and remaining 90 minutes prior.. Refills: 0. Next Dose: Sertraline (sertraline 50 mg oral tablet) 1 tab(s) Oral twice a day. Refills: 3. Next Dose: Allergy Info:?? ZyrTEC; Percocet 5/325; Demerol HCl; Flonase; sulfa drugs Medications Given This Visit Future Orders ?US Soft Tissue Abdomen? Order Date:10/19/22?- Complete on or after?10/19/22 ?US Soft Tissue Pelvis/ Buttocks? Order Date:10/19/22?- Complete on or after?10/19/22 Vital Signs Height 170 cm Weight 47.6 kg BMI 16.47 kg/m2 Blood Pressure 135 mm Hg/74 mm Hg Temperature Pulse Rate 67 bpm Respiratory Rate 02 Sat Mode of Delivery 100 %/Room air You can now view a summary of your hospital visit from the comfort of your home through a free online portal called [employer]. [employer] is a website that allows you to securely view your medical information including discharge summary, medications and follow-up visits. ??You can alsosend a secure electronic message to your doctor???s office to request appointments, renew medications or just ask a question. You can enroll at [email or web address] or register during your next office visit. [...] primary care provider, you may find a [facility] provider by calling [facility] [employer] [facility] at [phone]. For information about the plan of care [...] Care Physician Member Role: PCP Address: Address: [address] [place] [address]- Care Team Related Persons Name: CATY LOCKWOOD Name: MARYCRUZ MANN Name: MARYCRUZ TORRES Name: NO, NONE Name: DAVID KRAFT Address: home [address] [address]
--- OUTSIDE RECORDS SUMMARY | 2023-03-13 14:25 | XMS_ITS | Continuity of Care Document ---
Author Name Unknown Organization [facility] Andrea Bryson lt Address [address] [place] [address]- Care Team Providers Care Aesthetician Name Role Phone Mike HEATH, Kevyn Gaytan Primary Care Physician Encounter [facility] Date(s): 07/01/22 - 07/31/22 [facility] Adult [address] [place] [address]- Allergies, Adverse Reactions, Alerts Substance Reaction Severity Status sulfa drugs Active Flonase Active Demerol HCl Active Percocet 5/325 Active ZyrTEC rash Active Immunizations Given and Recorded Vaccine Date Status Refusal Reason pneumococcal 23-valent vaccine 1 07/06/22 Given pneumococcal 23-valent vaccine 2 07/03/00 Recorded Influenza Virus Vaccine (oldterm) 3 04/06/22 Recor ded Influenza Virus Vaccine (oldterm) 03/02/20 Recorde d [id number] 12y+ bivalent booster vax 4 04/06/22 Recorded [id number] 12y+ bivalent booster vax 5 04/06/22 Recorded [...] tetanus/diphtheria/pertussis, acel(Tdap) 8 07/03/08 Recorded 1Result Comment: [id number] 2Location History: Dr. Lao 3Result Comment: Nida DUPLICATE 4Result Comment: Nida 5Result Comment: DUPLICATE 6Result Comment: NIDA 7Result Comment: [facility] [phone] 8Location History: Dr. Lao Medications amLODIPine 10 mg oral tablet 10 mg, 1, tablet, By Mouth, Daily, Increase in dose, # 90 tablet, Refills 3, Tot. Refills 3, Maintenance, 04/27/22 13:48:00 EDT, Route to Pharmacy Electronically, [facility] #[id number], Partialfill upon patient request if the prescription is fo... Start Date: 04/27/22 Status: Ordered duloxetine 30 mg oral enteric coated capsule 1 capsule = 30 mg, By Mouth, 2 times a day, Increase in dose, # 180 capsule, 3 Refills, Maintenance, 04/27/22 13:42:00 EDT, [facility] #[id number], Partial fill upon patient request if the [...] 11/15/22 6:26:00 EDT, Route to Pharmacy Electronically, [facility] #[id number], Partial fill upon patient request if the prescriptio... Start Date: 11/15/22 Stop Date: 11/16/22 Status: Ordered ibuprofen 800 mg oral tablet 800 mg, 1, tablet, By Mouth, 2 times a day, # 270 tablet, Refills 1, Tot. Refills 1, Acute :26:00 EDT, 11/15/21 6:26:00 EDT, Route to Pharmacy Electronically, [facility] #[id number], Partial fill upon patient request if the prescription... Start Date: 11/15/21 Stop Date: 11/15/22 Status: Ordered lisinopril 20 mg oral tablet See Instructions, TAKE 1 TABLET DAILY, # 90 tablet, Refills 3, Tot. Refills 3, 11/15/21 6:27:00 EDT, Instructions Replace Required Details, [id number], 170, cm, 10/25/21 16:19:00 EDT, Height Start Date: 11/15/21 Status: Ordered LORazepam 1 mg oral tablet 1 tablet = 1 mg, By Mouth, 2 times a day, PRN as needed for anxiety, # 60 tablet, 2 Refills, Maintenance, 07/28/22 14:24:00 EST, Tablet, [facility] #[id number], 170, cm, 07/06/22 13:11:00 EST, Height Start [...] Sore throat Confirmed Active Underweight Confirmed Active 21914 CTA: IMPRESSION: 1. 70% stenosis of the [...] Care Physician Member Role: PCP Address: Address: [address] [place] [address]- Care Team Related Persons Name: MARYCRUZ MANN Name: NO, NONE Name: DAVID KRAFT Address: home [address] [facility] [address] [place] [address]
--- OUTSIDE RECORDS SUMMARY | 2023-03-13 14:25 | XMS_ITS | Continuity of Care Document ---
Author Name Unknown Organization [facility] Address [address] [place] [address] [address] [place] [address]- Care Team Providers Care Process Plant Operator Name Role Phone Mike HEATH, Kevyn Gaytan Primary Care Physician Encounter [facility] [id number] Date(s): 10/19/22 - 10/26/[address] [place] [address]- Attending Physician: Sunny Goyal MD Referring Physician: Shanti Lorenzo MDShoaib Allergies, Adverse Reactions, Alerts Substance Reaction Severity Status sulfa drugs Active Flonase Active Demerol HCl Active ZyrTEC rash Active Percocet 5/325 Active Immunizations Given and Recorded Vaccine Date Status Refusal Reason pneumococcal 23-valent vaccine 1 07/06/22 Given pneumococcal 23-valent vaccine 2 07/03/00 Recorded Influenza Virus Vaccine (oldterm) 3 04/06/22 Recor ded Influenza Virus Vaccine (oldterm) 03/02/20 Recorde d [id number] 12y+ bivalent booster vax 4 04/06/22 Recorded [id number] 12y+ bivalent booster vax 5 04/06/22 Recorded [...] tetanus/diphtheria/pertussis, acel(Tdap) 8 07/03/08 Recorded 1Result Comment: [id number] 2Location History: Dr. Lao 3Result Comment: Nida DUPLICATE 4Result Comment: Nida 5Result Comment: DUPLICATE 6Result Comment: NIDA 7Result Comment: [facility] [phone] 8Location History: Dr. Lao Medications amLODIPine 10 mg oral tablet 10 mg, 1, tablet, By Mouth, Daily, Increase in dose, # 90 tablet, Refills 3, Tot. Refills 3, Maintenance, 04/27/22 13:48:00 EDT, Route to Pharmacy Electronically, [facility] #[id number], Partialfill upon patient request if the prescription is fo... Start Date: 04/27/22 Status: Ordered dicyclomine 10 mg oral capsule 1 capsule = 10 mg, By Mouth, 4 times a day, for 14 days, # 56 capsule, 3 Refills, Hard Stop 11/24/22 6:39:00 EDT, 09/29/22 6:39:00 EDT, Capsule, [facility] #[id number], Partial fill upon patientrequest if the prescription is for a schedule II op... Start Date: 09/29/22 Stop Date: 11/24/22 Status: Ordered dicyclomine 20 mg oral tablet 1 tablet = 20 mg, By Mouth, 4 times a day, PRN spasm, Increase in dose, # 56 tablet, 5 Refills, Maintenance, 10/19/22 13:40:00 EDT, Tablet, [facility] #[id number], Partial fill upon patient request if the prescription is for a schedule II opioid... Start Date: 10/19/22 Stop Date: 01/11/23 Status: Ordered duloxetine 30 mg oral enteric coated capsule 1 capsule = 30 mg, By Mouth, 2 times a day, Increase in dose, # 180 capsule, 3 Refills, Maintenance, 04/27/22 13:42:00 EDT, [facility] #[id number], Partial fill upon patient request if the [...] 11/15/22 6:26:00 EDT, Route to Pharmacy Electronically, [facility] #[id number], Partial fill upon patient request if the prescriptio... Start Date: 11/15/22 Stop Date: 11/16/22 Status: Ordered ibuprofen 800 mg oral tablet 800 mg, 1, tablet, By Mouth, 2 times a day, # 270 tablet, Refills 1, Tot. Refills 1, Acute :26:00 EDT, 11/15/21 6:26:00 EDT, Route to Pharmacy Electronically, [facility] #[id number], Partial fill upon patient request if the prescription... Start Date: 11/15/21 Stop Date: 11/15/22 Status: Ordered lisinopril 20 mg oral tablet See Instructions, TAKE 1 TABLET DAILY, # 90 tablet, Refills 3, Tot. Refills 3, 11/15/21 6:27:00 EDT, Instructions Replace Required Details, Route to Pharmacy Electronically, [facility] #[id number], 170, cm, 10/25/21 16:19:00 EDT, Height Start [...] Refills, Maintenance, 07/28/22 14:24:00 EST, Tablet, [facility] #[id number], 170, cm, 07/06/22 13:11:00 EST, Height Start [...] Maintenance, 09/22/22 5:18:00 EDT, [facility]), 170, cm, 09/07/22 11:31:00 EST, [...] claudication 1 Confirmed Active Underweight Confirmed Active 26652 CTA: IMPRESSION: 1. 70% stenosis of the [...] Procedure Date Related Diagnosis Body Site Status Operative procedure on spine Completed Vital Signs Most recent to oldest [Reference Range]: 1 Height 170 cm (10/19/22 11:13 AM) Weight 47.1 kg (10/19/22 11:13 AM) Pulse Rate [55-90 bpm] 69 bpm (10/19/22 11:13 AM) Body Mass Index [18.5-24.99 kg/m2] 16.3 kg/m2 *L* (10/19/22 11:13 AM) Blood Pressure [90-138/55-84 mm Hg] 146/ 78mm Hg *H* (10/19/22 11:13 AM) Respiratory Rate [16-30 br/min] 18 br/mi n (10/19/22 11:13 AM) Temperature [96.8-100.4 DegF] 96.2 DegF *L* (10/19/22 11:13 AM) Blood pressure sites Arm, right (10/19/22 11:13 AM) Temperature Route Temporal (10/19/22 11:13 AM) Weight Obtained Via Standing scale (10/19/22 11:13 AM) Social History Social History Type Response Smoking Status 10 or more cigarette s (1/2 pack or more)/day in last 30 days; Other: Currently smoking about 8-10 cigarettes daily.; entered on: 08/27/19 Sex Patient Care team information Care Team Personnel Name: Kevyn Mckeon MD Position: [facility] Primary Care Physician Member Role: PCP Address: Address: [address] [place] [address]- Care Team Related Persons Name: CATY LOCKWOOD Name: MARYCRUZ MANN Name: MARYCRUZ TORRES Name: NO, NONE Name: DAVID KRAFT Address: home [address] [place] [address]
--- OUTSIDE RECORDS SUMMARY | 2023-03-13 14:25 | XMS_ITS | Continuity of Care Document ---
Author Name Unknown Organization [facility] Address [address] [place] [address] Dr ve [address] [place] [address]- Care Team Providers Care Philosophy Lecturer Name Role Phone Mike HEATH, Kevyn Gaytan Primary Care Physician Encounter [facility] Date(s): 10/25/22 - 11/24/[address] [place] [address]- Allergies, Adverse Reactions, Alerts Substance Reaction Severity Status sulfa drugs Active Flonase Active Demerol HCl Active Percocet 325 Active ZyrTEC rash Active Immunizations Given and Recorded Vaccine Date Status Refusal Reason pneumococcal 23-valent vaccine 1 07/06/22 Given pneumococcal 23-valent vaccine 2 07/03/00 Recorded Influenza Virus Vaccine (oldterm) 3 04/06/22 Recor ded Influenza Virus Vaccine (oldterm) 03/02/20 Recorde d [id number] 12y+ bivalent booster vax 4 04/06/22 Recorded [id number] 12y+ bivalent booster vax 5 04/06/22 Recorded [...] tetanus/diphtheria/pertussis, acel(Tdap) 8 07/03/08 Recorded 1Result Comment: [id number] 2Location History: Dr. Lao 3Result Comment: Nida DUPLICATE 4Result Comment: Nida 5Result Comment: DUPLICATE 6Result Comment: NIDA 7Result Comment: [facility] [phone] 8Location History: Dr. Lao Medications amLODIPine 10 mg oral tablet 10 mg, 1, tablet, By Mouth, Daily, Increase in dose, # 90 tablet, Refills 3, Tot. Refills 3, Maintenance, 04/27/22 13:48:00 EDT, Route to Pharmacy Electronically, [facility] #[id number], Partialfill upon patient request if the prescription is fo... Start Date: 04/27/22 Status: Ordered dicyclomine 20 mg oral tablet 1 tablet = 20 mg, By Mouth, 4 times a day, PRN spasm, Increase in dose, # 56 tablet, 5 Refills, Maintenance, 10/19/22 13:40:00 EDT, Tablet, [facility] #[id number], Partial fill upon patient request if the prescription is for a schedule II opioid... Start Date: 10/19/22 Stop Date: 01/11/23 Status: Ordered duloxetine 30 mg oral enteric coated capsule 1 capsule = 30 mg, By Mouth, 2 times a day, Increase in dose, # 180 capsule, 3 Refills, Maintenance, 04/27/22 13:42:00 EDT, [facility] #[id number], Partial fill upon patient request if the [...] Replace Required Details, Route to Pharmacy Electronically, [facility] #[id number], 170, cm, 10/25/21 16:19:00 EDT, Height Start Date: 11/15/21 Status: Ordered LORazepam 1 mg oral tablet 1 tablet = 1 mg, By Mouth, 2 times a day, PRN as needed for anxiety, # 60 tablet, 2 Refills, Maintenance, 11/06/22 6:34:00 EDT, Tablet, [facility] #[id number], 170, cm, 10/19/22 13:31:00 EDT, Height Start [...] opioid drug. Start Date: 07/06/22 Status: [facility], Maintenance, probiotic, 10/19/22 13:25:00 [...] 2 times a day, 0 Refills, Maintenance, 04/19/23 13:24:00 EDT, Partial fill upon patient request [...] claudication 1 Confirmed Active Underweight Confirmed Active 73855 CTA: IMPRESSION: 1. 70% stenosis of the [...] Team Personnel Name: Kevyn Mckeon MD Position: [facility] Physician - Primary Care Member Role: PCP Address: Address: [address] [place] [address]- Care Team Related Persons Name: CATY LOCKWOOD Name: MARYCRUZ MANN Name: MARYCRUZ TORRES Name: NO, NONE Name: DAVID KRAFT Address: home [address] [facility] [address] [place] [address]
--- OUTSIDE RECORDS SUMMARY | 2023-03-13 14:25 | XMS_ITS | Continuity of Care Document ---
Author Name Unknown Organization [facility] Bryson lt Address [address] [place] [address]- Care Team Providers Care Cell Feed Department Supervisor Name Role Phone Mike HEATH, Kevyn Gaytan Primary Care Physician [phone] Encounter [facility] Date(s): 07/07/21 - 08/06/21 [facility] Adult [address] [place] [address]- Allergies, Adverse Reactions, Alerts Substance Reaction Severity Status sulfa drugs Active Flonase Active ZyrTEC rash Active Demerol HCl Active Percocet Active Immunizations Given and Recorded Vaccine Date [...] vaccine 3 07/03/00 Recorded 1Result Comment: [facility] [id number] 2Location History: Dr. Lao 3Location History: Dr. Lao Medications 4 wheeled walked with seat and brake 4 wheeled walked with seat and brake, See Instructions, # 1 each, Refills 0, Tot. Refills 0, Maintenance, DX:M81.0 4 wheeled walker with seat and brakes, HPIOLITO lifetime 99MOS Please deliver to patientshome address, 01/07/21 10:52:00 EDT, Supply Start Date: 01/07/21 Status: Ordered amitriptyline 10 mg oral tablet 10 mg, 1, tablet, By Mouth, Daily at bedtime, # 30 tablet, Refills 5, Tot. Refills 5, Maintenance, 08/06/21 16:31:00 EST, Route to Pharmacy Electronically, [facility] #[id number], Partial fill upon patient request if the [...]
--- OUTSIDE RECORDS SUMMARY | 2023-03-13 14:25 | XMS_ITS | Continuity of Care Document ---
Author Name Unknown Organization [facility] Bryson lt Address [address] [place] [address]- Care Team Providers Care Transition Program Manager Name Role Phone Mike HEATH, Kevyn Gaytan Primary Care Physician Encounter [facility] Date(s): 07/12/21 - 08/11/21 [facility] Adult [address] [place] [address]- Allergies, Adverse Reactions, Alerts Substance Reaction Severity [...] vaccine 3 07/03/00 Recorded 1Result Comment: [facility] [phone] 2Location History: Dr. Lao 3Location History: Dr. [...] 08/06/21 16:31:00 EST, Route to Pharmacy Electronically, [facility] #[id number], Partial fill upon patient request if the [...] and foot rests, HIPOLITO 99MOS [facility], 04/12/21 16:40:00 E... Start Date: 04/12/21 [...]
--- OUTSIDE RECORDS SUMMARY | 2023-03-13 14:25 | XMS_ITS | Continuity of Care Document ---
Author Name Unknown Organization [facility] Bryson lt Address [address] [place] [address]- Care Team Providers Care Eight Arm Operator Name Role Phone Mike HEATH, Kevyn Gaytan Primary Care Physician [place] [facility] [place] 12[place]07/22 [facility] Adult [address] [place] [address]- Allergies, Adverse Reactions, Alerts Substance Reaction Severity Status sulfa drugs Active Flonase Active Demerol HCl Active Percocet Active ZyrTEC rash Active Immunizations Given and Recorded Vaccine Date Status Refusal Reason pneumococcal 23-valent vaccine 1 07/06/22 Given pneumococcal 23-valent vaccine 2 07/03/00 Recorded Influenza Virus Vaccine (oldterm) 3 04/06/22 Recor ded Influenza Virus Vaccine (oldterm) 03/02/20 Recorde d [id number] 12y+ bivalent booster vax 4 04/06/22 Recorded [id number] 12y+ bivalent booster vax 5 04/06/22 Recorded [...] tetanus/diphtheria/pertussis, acel(Tdap) 8 07/03/08 Recorded 1Result Comment: [id number] 2Location History: Dr. Lao 3Result Comment: [facility] DUPLICATE 4Result Comment: [facility] 5Result Comment: DUPLICATE 6Result Comment: DEMETRIAS 7Result Comment: [facility] [id number] 8Location History: Dr. Lao Medications amLODIPine 10 mg oral tablet 10 mg, 1, tablet, By Mouth, Daily, Increase in dose, # 90 tablet, Refills 3, Tot. Refills 3, Maintenance, 04/27/22 13:48:00 EDT, Route to Pharmacy Electronically, [facility] #[id number], Partialfill upon patient request if the prescription is fo... Start Date: 04/27/22 Status: Ordered dicyclomine 20 mg oral tablet 1 tablet = 20 mg, By Mouth, 4 times a day, PRN spasm, Increase in dose, # 56 tablet, 5 Refills, Maintenance, 10/19/22 13:40:00 EDT, Tablet, [id number], Partial fill upon patient request if the prescription is for a schedule II opioid... Start Date: 10/19/22 Stop Date: 01/11/23 Status: Ordered duloxetine 30 mg oral enteric coated capsule 1 capsule = 30 mg, By Mouth, 2 times a day, Increase in dose, # 180 capsule, 3 Refills, Maintenance, 04/27/22 13:42:00 EDT, [facility] #[id number], Partial fill upon patient request if the [...] Replace Required Details, Route to Pharmacy Electronically, [facility] #[id number], 170, cm, 10/25/21 16:19:00 EDT, Height Start Date: 11/15/21 Status: Ordered LORazepam 1 mg oral tablet 1 tablet = 1 mg, By Mouth, 2 times a day, PRN as needed for anxiety, # 60 tablet, 2 Refills, Maintenance, 11/06/22 6:34:00 EDT, Tablet, [facility][id number], 170, cm, 10/19/22 13:31:00 EDT, Height Start [...] opioid drug. Start Date: 07/06/22 Status: Ordered [facility] Rx Refills 0, Maintenance, probiotic, 10/19/22 13:25:00 [...] Maintenance, 09/22/22 5:18:00 EDT, [email or web address]), 170, cm, 09/07/22 11:31:00 EST, [...] claudication 1 Confirmed Active Underweight Confirmed Active 07479 CTA: IMPRESSION: 1. 70% stenosis of the [...] Care Member Role: PCP Address: Address: [address] [place] [address]- [place] Care Team Related Persons Name: CATY LOCKWOOD Name: MARYCRUZ MANN Name: MARYCRUZ OTRRES Name: NO, NONE Name: DAVID KRAFT Address: [address] [address]
--- OUTSIDE RECORDS SUMMARY | 2023-03-13 14:25 | XMS_ITS | Continuity of Care Document ---
Author Name Unknown Organization [facility] Bryson lt Address [address] [place] [address]- Care Team Providers Care Judicial Administrative Assistant Name Role Phone Kevyn Mckeon MD Primary Care Physician Encounter [facility] [place] Date(s): 12/15/21 - 12/22/21 [facility] Adult [address] [place] [address]- Attending Physician: Kevyn Mckeon MD Allergies, Adverse Reactions, Alerts Substance Reaction Severity Status sulfa drugs Active Flonase Active Percocet 5/ Active ZyrTEC rash Active Demerol HCl Active [...] 07/03/00 Recorded 1Result Comment: [facility] [id number] 2Location History: Dr. Lao 3Location History: Dr. [...] 11/15/21 6:26:00 EDT, Route to Pharmacy Electronically, [email or web address] #[id number], Partial fill upon patient request if the prescription... Start Date: 11/15/21 Stop Date: 11/15/22 Status: Ordered lidocaine 5% topical film 1 patch, Topically, Daily, PRN Pain , Mild, remove after 12 hours, # 13 each, 0 Refills, Maintenance, 09/24/21 11:47:00 EDT, Film, [email or web address] #[id number], Partial fill upon patient request if the prescription is for a schedule II opioid drug., 1... Start Date: 09/24/21 Status: Ordered lisinopril 20 mg oral tablet See Instructions, TAKE 1 TABLET DAILY, # 90 tablet, Refills 3, Tot. Refills 3, 11/15/21 6:27:00 EDT, Instructions Replace Required Details, Route to Pharmacy Electronically, [email or web address] #[id number], 170, cm, 10/25/21 16:19:00 EDT, Height Start [...] and foot rests, HIPOLITO 99MOS send to [facility], 04/12/21 16:40:00 E... Start Date: 04/12/21 Status: Ordered triamcinolone 0.1% topical cream 1 application, Topically, 2 times a day, for 14 days, # 60 Gm, 1 Refills, Acute 01/12/22 13:21:00 EDT, 12/15/21 13:21:00 EDT, Cream, [facility] #[id number], Partial fill upon patient request if the prescription is for a schedule II opioid drug.,... Start Date: 12/15/21 Stop Date: 01/12/22 Status: Ordered Problem List Condition Effective Dates Status Health Status Inform ant Allergic rhinitis(Confirmed) Active Oliveira's esophagus(Confirmed) Active Osteoarthritis of both hands(Confirmed) Active Essential hypertension(Confirmed) Active IBS (irritable bowel syndrom e) with diarrhea(Confirmed) Active Depression, major, single ep isode, in partial remission(Confirmed) Active Osteoporosis(Confirmed) Active PVD (peripheral vascular dis ease) with claudication(Confirmed) 1 Active Underweight(Confirmed) Active 98037 CTA: IMPRESSION: 1. 70% stenosis of the [...] oldest [Reference Range]: 1 2 3 Height 170 cm (12/15/21 12:58 PM) 170 cm (12/15/21 12:57 PM) 170 cm (12/15/21 12:48 PM) Weight 50.6 kg (12/15/21 12:48 PM) Oxygen Saturation [94-100 %] 98 % (12/15/21 12:48 PM) Pulse Rate [55-90 bpm] 68 bpm (12/15/21 12:48 PM) Body Mass Index [18.5-24.99] 17.51 *L* (12/15/21 12:48 PM) Blood Pressure [90-138/55-84 mm Hg] 155/68mm Hg *H* (12/15/21 12:58 PM) 152/73mm Hg *H* (12/15/21 12:57 PM) 169/85mm Hg *H* (12/15/21 12:48 PM) Temperature [96.8-100.4 DegF] 97.9 DegF (12/15/21 12:48 PM) Mode of Delivery (Oxygen) Room air (12/15/21 12:48 PM) Blood pressure sites Arm, left (12/15/21 12:58 PM) Arm, left (12/15/21 12:57 PM) Arm, left (12/15/21 12:48 PM) Temperature Route Oral (12/15/21 12:48 PM) Weight Obtained Via Standing scale (12/15/21 12:48 PM) Social History Social History Type Response Smoking Status 10 or more cigarette s (1/2 pack or more)/day in last 30 days; Other: Currently smoking about 8-10 cigarettes daily.; entered on: 08/27/19 Sex
--- OUTSIDE RECORDS SUMMARY | 2023-03-13 14:25 | XMS_ITS | Continuity of Care Document ---
Author Name Unknown Organization [facility] Bryson lt Address [address] [place] [address]- Care Team Providers Care Youth Agent Name Role Phone Mike HEATH, Kevyn Gaytan Primary Care Physician Encounter [facility] [place] Date(s): 04/30/21 - 05/30/21 [facility] Adult [address] [place] [address]- Allergies, Adverse Reactions, Alerts Substance Reaction Severity [...] 23-valent vaccine 3 07/03/00 Recorded 1Result Comment: [facility] [id number] 2Location History: Dr. Lao 3Location History: Dr. [...] 0 Refills, Maintenance, 05/10/21 14:43:00 EST, Patch, [facility] #[id number], Partial fill upon patient request if the prescription is for a schedule II opioid drug., 170, cm, 05/03/21 13:38:00 EDT,... Start Date: 05/10/21 Status: Ordered lisinopril 20 mg oral tablet See Instructions, TAKE 1 TABLET DAILY, # 90 Unknown, Refills 0, Maintenance, Instructions Replace Required Details, Route to Pharmacy Electronically, [facility], 170, cm, 12/10/20 13:41:00 EDT, Height [...] tablet, 1 Refills, Maintenance, 12/11/20 14:10:00 EDT, [facility], 170, cm, 12/10/20 13:41:00 EDT, [...]
--- OUTSIDE RECORDS SUMMARY | 2023-03-13 14:25 | XMS_ITS | Continuity of Care Document ---
Author Name Unknown Organization [facility] Bryson lt Address [address] [place] [address]- Care Team Providers Care Producer Director Name Role Phone Mike HEATH, Kevyn Gaytan Primary Care Physician [phone] Encounter [facility] Date(s): 05/24/22 - 06/23/22 [facility] Adult [address] [place] [address]- Allergies, Adverse Reactions, Alerts Substance Reaction Severity Status sulfa drugs Active Flonase Active Demerol HCl Active ZyrTEC rash Active Percocet 5/325 Active Immunizations Given and Recorded Vaccine Date Status Refusal Reason Influenza Virus Vaccine (oldterm) 1 04/06/22 Recor ded Influenza Virus Vaccine (oldterm) 03/02/20 Recorde d [id number] 12y+ bivalent booster vax 2 04/06/22 Recorded [id number] 12y+ bivalent booster vax 3 04/06/22 Recorded [...] Comment: DUPLICATE 4Result Comment: [facility] 5Result Comment: [facility] [id number] 6Location History: Dr. Lao 7Location History: Dr. Lao Medications amLODIPine 10 mg oral tablet 10 mg, 1, tablet, By Mouth, Daily, Increase in dose, # 90 tablet, Refills 3, Tot. Refills 3, Maintenance, 04/27/22 13:48:00 EDT, Route to Pharmacy Electronically, [facility] #[id number], Partialfill upon patient request if the prescription is fo... Start Date: 04/27/22 Status: Ordered duloxetine 30 mg oral enteric coated capsule 1 capsule = 30 mg, By Mouth, 2 times a day, Increase in dose, # 180 capsule, 3 Refills, Maintenance, 04/27/22 13:42:00 EDT, [facility] #[id number], Partial fill upon patient request if the prescription is for a schedule II opioid drug., 170, cm,... Start Date: 04/27/22 Status: Ordered ibuprofen 800 mg oral tablet 800 mg, 1, tablet, By Mouth, 2 times a day, # 270 tablet, Refills 1, Tot. Refills 1, Acute 11/16/2313:25:00 EDT, 11/15/22 6:26:00 EDT, Route to Pharmacy Electronically, [facility] #[id number], Partial fill upon patient request if the prescriptio... Start Date: 11/15/22 Stop Date: 11/16/22 Status: Ordered ibuprofen 800 mg oral tablet 800 mg, 1, tablet, By Mouth, 2 times a day, # 270 tablet, Refills 1, Tot. Refills 1, Acute :26:00 EDT, 11/15/21 6:26:00 EDT, Route to Pharmacy Electronically, [facility] #[id number], Partial fill upon patient request if the prescription... Start Date: 11/15/21 Stop Date: 11/15/22 Status: Ordered lidocaine 5% topical film 1 patch, Topically, Daily, PRN Pain , Mild, remove after 12 hours, # 13 each, 0 Refills, Maintenance, 09/24/21 11:47:00 EDT, Film, [facility] #[id number], Partial fill upon patient request if the prescription is for a schedule II opioid drug., 1... Start Date: 09/24/21 Status: Ordered lisinopril 20 mg oral tablet See Instructions, TAKE 1 TABLET DAILY, # 90 tablet, Refills 3, Tot. Refills 3, 11/15/21 6:27:00 EDT, Instructions Replace Required Details, Route to Pharmacy Electronically, [facility] #[id number], 170, cm, 10/25/21 16:19:00 EDT, Height Start Date: 11/15/21 Status: Ordered LORazepam 1 mg oral tablet 1 tablet = 1 mg, By Mouth, 2 times a day, PRN as needed for anxiety, # 60 tablet, 2 Refills, Maintenance, 04/11/22 6:39:00 EDT, Tablet, [facility] #[id number], 170, cm, 03/23/22 11:12:00 EDT, Height Start Date: 04/11/22 Status: Ordered methocarbamol 750 mg oral tablet 2 tablet = 1,500 mg, By Mouth, 3 times a day, PRN Pain , Moderate and spasm, # 90 tablet, 3 Refills, Acute 10/26/22 13:44:00 EDT, 04/27/22 13:43:00 EDT, [facility] #[id number], Partial fill uponpatient request if the prescription [...] Sore throat Confirmed Active Underweight Confirmed Active 12043 CTA: IMPRESSION: 1. 70% stenosis of the [...] Personnel Name: Mike HEATH, Kevyn Gaytan Position: [facility] Primary Care Physician Member Role: PCP Address: Address: [address] [place] [address]- Care Team Related Persons Name: MARYCRUZ MANN Name: NO, NONE Name: DAVID KRAFT Address: [address] [address]
--- OUTSIDE RECORDS SUMMARY | 2023-03-13 14:25 | XMS_ITS | Continuity of Care Document ---
Author Name Unknown Organization [facility] Bryson lt Address [address] [place] [address]- Care Team Providers Care Ecological Technical Officer Name Role Phone Mike HEATH, Kevyn Gaytan Primary Care Physician Encounter [facility] [place] Date(s): 07/17/20 - 08/16/20 [facility] Adult [address] [place] [address]- Allergies, Adverse Reactions, Alerts Substance Reaction Severity [...] capsule, 5 Refills, Maintenance, 07/06/20 17:01:00 EST, [facility] #[id number], 170, cm, 05/11/20 13:39:00 EST, Height Start [...] ml) bottles pre-mixed. Please call pt for fiber picker., Compound Start Date: 04/16/19 Status: Ordered Redi-Cat-(2) two pre-mixed 450 ml bottles Redi-Cat-(2) two pre-mixed 450 ml bottles, See Instructions, # 2 bottle, Refills 0, Tot. Refills 0,Maintenance, Follow instructions included per PCP office., 04/16/19 15:40:53 EDT, 2 (450 ml) bottles pre-mixed. Please call pt for fiber picker., Compound Start Date: 04/16/19 Status: Ordered [...]
--- OUTSIDE RECORDS SUMMARY | 2023-03-13 14:25 | XMS_ITS | Continuity of Care Document ---
Author Name Unknown Organization [facility] Bryson lt Address [address] [place] [address]- Care Team Providers Care Activity Manager Name Role Phone Mike HEATH, Kevyn Gaytan Primary Care Physician Encounter [facility] [place] Date(s): 05/19/22 - 06/18/22 [facility] Adult [address] [place] [address]- Allergies, Adverse Reactions, Alerts Substance Reaction Severity Status sulfa drugs Active Flonase Active ZyrTEC rash Active Demerol HCl Active Percocet 5/325 Active Immunizations Given and Recorded Vaccine Date Status Refusal Reason Influenza Virus Vaccine (oldterm) 1 04/06/22 Recor ded Influenza Virus Vaccine (oldterm) 03/02/20 Recorde d [id number] 12y+ bivalent booster vax 2 04/06/22 Recorded [id number] 12y+ bivalent booster vax 3 04/06/22 Recorded [...] DUPLICATE 4Result Comment: [facility] 5Result Comment: [facility] [id number] 6Location History: Dr. Lao 7Location History: Dr. Lao Medications amLODIPine 10 mg oral tablet 10 mg, 1, tablet, By Mouth, Daily, Increase in dose, # 90 tablet, Refills 3, Tot. Refills 3, Maintenance, 04/27/22 13:48:00 EDT, Route to Pharmacy Electronically, [facility] #[id number], Partialfill upon patient request if the prescription is fo... Start Date: 04/27/22 Status: Ordered duloxetine 30 mg oral enteric coated capsule 1 capsule = 30 mg, By Mouth, 2 times a day, Increase in dose, # 180 capsule, 3 Refills, Maintenance, 04/27/22 13:42:00 EDT, [facility] #[id number], Partial fill upon patient request if the prescription is for a schedule II opioid drug., 170, cm,... Start Date: 04/27/22 Status: Ordered ibuprofen 800 mg oral tablet 800 mg, 1, tablet, By Mouth, 2 times a day, # 270 tablet, Refills 1, Tot. Refills 1, Acute 11/16/2313:25:00 EDT, 11/15/22 6:26:00 EDT, Route to Pharmacy Electronically, [facility] #[id number], Partial fill upon patient request if the prescriptio... Start Date: 11/15/22 Stop Date: 11/16/22 Status: Ordered ibuprofen 800 mg oral tablet 800 mg, 1, tablet, By Mouth, 2 times a day, # 270 tablet, Refills 1, Tot. Refills 1, Acute :26:00 EDT, 11/15/21 6:26:00 EDT, Route to Pharmacy Electronically, [facility] #[id number], Partial fill upon patient request if the prescription... Start Date: 11/15/21 Stop Date: 11/15/22 Status: Ordered lidocaine 5% topical film 1 patch, Topically, Daily, PRN Pain , Mild, remove after 12 hours, # 13 each, 0 Refills, Maintenance, 03/25/22 11:47:00 EDT, Film, [facility] #[id number], Partial fill upon patient request if the prescription is for a schedule II opioid drug., 1... Start Date: 09/24/21 Status: Ordered lisinopril 20 mg oral tablet See Instructions, TAKE 1 TABLET DAILY, # 90 tablet, Refills 3, Tot. Refills 3, 11/15/21 6:27:00 EDT, Instructions Replace Required Details, Route to Pharmacy Electronically, [facility] #[id number], 170, cm, 10/25/21 16:19:00 EDT, Height Start Date: 11/15/21 Status: Ordered LORazepam 1 mg oral tablet 1 tablet = 1 mg, By Mouth, 2 times a day, PRN as needed for anxiety, # 60 tablet, 2 Refills, Maintenance, 04/11/22 6:39:00 EDT, Tablet, [facility] #[id number], 170, cm, 03/23/22 11:12:00 EDT, Height Start Date: 04/11/22 Status: Ordered methocarbamol 750 mg oral tablet 2 tablet = 1,500 mg, By Mouth, 3 times a day, PRN Pain , Moderate and spasm, # 90 tablet, 3 Refills, Acute 10/26/22 13:44:00 EDT, 04/27/22 13:43:00 EDT, [facility] #[id number], Partial fill uponpatient request if the prescription [...] Sore throat Confirmed Active Underweight Confirmed Active 54658 CTA: IMPRESSION: 1. 70% stenosis of the [...] Personnel Name: Mike HEATH, Kevyn Gaytan Position: [facility] Primary Care Physician Member Role: PCP Address: Address: [address] [place] [address]- Care Team Related Persons Name: MARYCRUZ MANN Name: NO, NONE Name: DAVID KRAFT Address: home [address] [address]
--- OUTSIDE RECORDS SUMMARY | 2023-03-13 14:25 | XMS_ITS | Continuity of Care Document ---
Author Name Unknown Organization [facility] Bryson lt Address [address] [place] [address]- Care Team Providers Care Healthcare Administrative Assistant Name Role Phone Kevyn Mckeon MD Primary [id number] - [facility]23 [facility] Adult [address] [place] [address]- Attending Physician: Kevyn Mckeon MD Allergies, Adverse Reactions, Alerts Substance Reaction Severity Status sulfa drugs Active Flonase Active Demerol HCl Active Percocet 5/325 Active ZyrTEC rash Active Immunizations Given and Recorded Vaccine Date Status Refusal Reason pneumococcal 23-valent vaccine 1 07/06/22 Given pneumococcal 23-valent vaccine 2 07/03/00 Recorded Influenza Virus Vaccine (oldterm) 3 04/06/22 Recor ded Influenza Virus Vaccine (oldterm) 03/02/20 Recorde d [id number] 12y+ bivalent booster vax 4 04/06/22 Recorded [id number] 12y+ bivalent booster vax 5 04/06/22 Recorded [...] tetanus/diphtheria/pertussis, acel(Tdap) 8 07/03/08 Recorded 1Result Comment: [id number] 2Location History: Dr. Lao 3Result Comment: Nida DUPLICATE 4Result Comment: Nida 5Result Comment: DUPLICATE 6Result Comment: NIDA 7Result Comment: [facility] [id number] 8Location History: Dr. Lao Medications amLODIPine 10 mg oral tablet 10 mg, 1, tablet, By Mouth, Daily, Increase in dose, # 90 tablet, Refills 3, Tot. Refills 3, Maintenance, 04/27/22 13:48:00 EDT, Route to Pharmacy Electronically, [id number], Partialfill upon patient request if the prescription is fo... Start Date: 04/27/22 Status: Ordered dicyclomine 20 mg oral tablet 1 tablet = 20 mg, By Mouth, 4 times a day, PRN spasm, Increase in dose, # 56 tablet, 5 Refills, Maintenance, 10/19/22 13:40:00 EDT, Tablet, [facility] #[id number], Partial fill upon patient request if the prescription is for a schedule II opioid... Start Date: 10/19/22 Stop Date: 01/11/23 Status: Ordered duloxetine 30 mg oral enteric coated capsule 1 capsule = 30 mg, By Mouth, 2 times a day, Increase in dose, # 180 capsule, 3 Refills, Maintenance, 04/27/22 13:42:00 EDT, [facility][id number], Partial fill upon patient request if the [...] Replace Required Details, Route to Pharmacy Electronically, [facility] #[id number], 170, cm, 10/25/21 16:19:00 EDT, Height Start Date: 11/15/21 Status: Ordered LORazepam 1 mg oral tablet 1 tablet = 1 mg, By Mouth, 2 times a day, PRN as needed for anxiety, # 60 tablet, 2 Refills, Maintenance, 11/06/22 6:34:00 EDT, Tablet, [facility] #[id number], 170, cm, 10/19/22 13:31:00 EDT, Height Start Date: 11/06/22 Status: Ordered LORazepam 1 mg oral tablet 1 tablet = 1 mg, By Mouth, 3 times a day, 0 Refills, Maintenance, 10/19/22 11:20:00 EDT, Partial fill upon patient request if the prescription is for a schedule II opioid drug. Start Date: 10/19/22 Status: Ordered [facility] Rx Refills 0, Maintenance, probiotic, 10/19/22 13:25:00 [...] Maintenance, 09/22/22 5:18:00 EDT, [facility]), 170, cm, 09/07/22 11:31:00 EST, [...] claudication 1 Confirmed Active Underweight Confirmed Active 25046 CTA: IMPRESSION: 1. 70% stenosis of the [...] oldest [Reference Range]: 1 Height 170 cm (12/30/22 1:07 PM) Weight 45.1 kg (12/30/22 1:07 PM) Oxygen Saturation [94-100 %] 98 % (12/30/22 1:07 PM) Pulse Rate [55-90 bpm] 70 bpm (12/30/22 1:07 PM) Body Mass Index [18.5-24.99 kg/m2] 15.61 kg/m2 *L* (12/30/22 1:07 PM) Blood Pressure [90-138/55-84 mm Hg] 113/ 67mm Hg (12/30/22 1:07 PM) Mode of Delivery (Oxygen) Room air (12/30/22 1:07 PM) Blood pressure sites Arm, left (12/30/22 1:07 PM) Weight Obtained Via Standing scale (12/30/22 1:07 PM) Social History Social History Type Response Smoking Status 10 or more cigarette s (1/2 pack or more)/day in last 30 days; Other: Currently smoking about 8-10 cigarettes daily.; entered on: 08/27/19 Sex Note * Maddi Gill: PERFORM, SIGN, VERIFY Event Display: Patient Education/Instruction Authored Date: [id number] [facility] *[place] Clinical Summary Name ANAND KRAFT Age 72 Years 1950 PCP Mike HEATH, Kevyn Gaytan PCP Visit Date 12/30/2022 12:58:00 Additional Instructions: Scheduled Appointments?? Future Appointments ?*[facility] [address] ?[place],??[place],??[address] ?Phone:??--?Fax:??-- ?Appt. Date:??01/11/2023?11:10 AM ?Scheduled Provider:??Germán HEATH, Gavino ?*BMP??[facility] [address],??[address] ?Phone:??--?Fax:??-- ?Appt. Date:??02/01/2023?3:50 PM ?Scheduled Provider:??Mike HEATH, Kevyn Gaytan Follow-Up Instructions ?? Diagnosis Essential (primary) hypertension; Unilateral inguinal hernia, without obstruction or gangrene, not specified as recurrent; Abnormal weight loss; 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; Major depressive disorder, single episode, unspecified Medications: Please continue your medications until treatment is completed or stopped by your provider. Discuss any questions related to medications with your provider. Medications to Continue with No Changes These medications were not printed or sent to your pharmacy Amlodipine (amLODIPine 10 mg oral tablet) 1 tab(s) Oral Daily. Increase in dose. Refills: 3. Next Dose: Dicyclomine (dicyclomine 20 mg oral tablet) 1 tab(s) Oral 4 times a day as needed spasm for 14 Days. Increase in dose. Refills: 5. Next Dose: Duloxetine (duloxetine 30 mg oral enteric coated capsule) 1 capsule Oral twice a day. Increase in dose. Refills: 3. Next Dose: Esomeprazole 40 Milligram Daily. Next Dose: Ibuprofen 800 Milligram. 1 tab 2 times a day. Next Dose: Lisinopril (lisinopril 20 mg oral tablet) TAKE 1 TABLET DAILY. Refills: 3. Next Dose: Lorazepam (LORazepam 1 mg oral tablet) 1 tab(s) Oral twice a day as needed as needed for anxiety. Refills: 2. Next Dose: Lorazepam (LORazepam 1 mg oral tablet) 1 tab(s) Oral 3 times a day. Next Dose: Miscellaneous Rx (Misc Rx) probiotic. Next Dose: Miscellaneous Rx (Redi-cat pre-mixed oral prep need 2 450ml bottles) drink 1 bottle 6 hours prior and remaining 90 minutes prior.. Refills: 0. Next Dose: Sertraline (sertraline 50 mg oral tablet) 1 tab(s) Oral twice a day. Refills: 3. Next Dose: No Longer Take the Following Medications Acetaminophen (Tylenol Extra Strength 500 mg oral tablet) 1 tab(s) Oral twice a day. Magnesium Oxide 400 Milligram Oral. Allergy Info:?? ZyrTEC; Percocet 5/325; Demerol HCl; Flonase; sulfa drugs Medications Given This Visit Future Orders ?No future orders Vital Signs Height 170 cm Weight 45.1 kg BMI 15.61 kg/m2 Blood Pressure 113 mm Hg/67 mm Hg Temperature Pulse Rate 70 bpm Respiratory Rate 02 Sat Mode of Delivery 98 %/Room air You can now view a summary of your hospital visit from the comfort of your home through a free online portal called [employer]. [employer] is a website that allows you to securely view your medical information including discharge summary, medications and follow-up visits. ??You can alsosend a secure electronic message to your doctor???s office to request appointments, renew medications or just ask a question. You can enroll at [email or web address] or register during your next office [...] care provider, you may find a [facility] provider by calling [facility] [employer] at [phone]. For information about the plan of care including goals and instructions for your diagnosis, please see the patient education orders section of this document. Patient Education Materials?? The content of this educational material or handout may have been modified, supplemented, or adapted from its original content and format to support your individualized medical care. * Maddi Gill: VERIFY, PERFORM, SIGN Event Display: Patient Education/Instruction Authored Date: [id number] [facility] *BMP [place] Clinical Summary Name ANAND KRAFT Age 72 Years 1950 PCP Kevyn Mckeon MD PCP Visit Date 12/30/2022 12:58:00 Additional Instructions: Scheduled Appointments?? Future Appointments ?*[facility] [address] ?[place],??[place],??[address] ?Phone:??--?Fax:??-- ?Appt. Date:??01/11/2023?11:10 AM ?Scheduled Provider:??Gavino Dunlap MD ?*[facility] ?[address] ?Phone:??--?Fax:??-- ?Appt. Date:??02/01/2023?3:50 PM ?Scheduled Provider:??Kevyn Mckeon MD Follow-Up Instructions ?? Diagnosis Essential (primary) hypertension; Unilateral inguinal hernia, without obstruction or gangrene, not specified as recurrent; Abnormal weight loss; 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; Major depressive disorder, single episode, unspecified Medications: Please continue your medications until treatment is completed or stopped by your provider. Discuss any questions related to medications with your provider. Medications to Continue with No Changes These medications were not printed or sent to your pharmacy Amlodipine (amLODIPine 10 mg oral tablet) 1 tab(s) Oral Daily. Increase in dose. Refills: 3. Next Dose: Dicyclomine (dicyclomine 20 mg oral tablet) 1 tab(s) Oral 4 times a day as needed spasm for 14 Days. Increase in dose. Refills: 5. Next Dose: Duloxetine (duloxetine 30 mg oral enteric coated capsule) 1 capsule Oral twice a day. Increase in dose. Refills: 3. Next Dose: Esomeprazole 40 Milligram Daily. Next Dose: Ibuprofen 800 Milligram. 1 tab 2 times a day. Next Dose: Lisinopril (lisinopril 20 mg oral tablet) TAKE 1 TABLET DAILY. Refills: 3. Next Dose: Lorazepam (LORazepam 1 mg oral tablet) 1 tab(s) Oral twice a day as needed as needed for anxiety. Refills: 2. Next Dose: Lorazepam (LORazepam 1 mg oral tablet) 1 tab(s) Oral 3 times a day. Next Dose: Miscellaneous Rx (Misc Rx) probiotic. Next Dose: Miscellaneous Rx (Redi-cat pre-mixed oral prep need 2 450ml bottles) drink 1 bottle 6 hours prior and remaining 90 minutes prior.. Refills: 0. Next Dose: Sertraline (sertraline 50 mg oral tablet) 1 tab(s) Oral twice a day. Refills: 3. Next Dose: No Longer Take the Following Medications Acetaminophen (Tylenol Extra Strength 500 mg oral tablet) 1 tab(s) Oral twice a day. Magnesium Oxide 400 Milligram Oral. Allergy Info:?? ZyrTEC; Percocet 5/325; Demerol HCl; Flonase; sulfa drugs Medications Given This Visit Future Orders ?No future orders Vital Signs Height 170 cm Weight 45.1 kg BMI 15.61 kg/m2 Blood Pressure 113 mm Hg/67 mm Hg Temperature Pulse Rate 70 bpm Respiratory Rate 02 Sat Mode of Delivery 98 %/Room air You can now view a summary of your hospital visit from the comfort of your home through a free online portal called [employer]Trac. [employer]Tr[employer] is a website that allows you to securely view your medical information including discharge summary, medications and follow-up visits. ??You can alsosend a secure electronic message to your doctor???s office to request appointments, renew medications or just ask a question. You can enroll at [email or web address] or register during your next office [...] care provider, you may find a [facility] provider by calling [facility] [employer] at [phone]. For information about the plan of care [...] Personnel Name: Mike HEATH, Kevyn Gaytan Position: [facility] Physician - Primary Care Member Role: PCP Address: Address: [address] [place] [address]- Care Team Related Persons Name: CATY LOCKWOOD Name: MARYCRUZ MANN Name: MARYCRUZ TORRES Name: NO, NONE Name: DAVID KRAFT Address: [address] [address]
--- OUTSIDE RECORDS SUMMARY | 2023-03-13 14:25 | XMS_ITS | Continuity of Care Document ---
Author Name Unknown Organization [facility] Bryson lt Address [address] [place] [address]- Care Team Providers Care Resaw Carriage Operator Name Role Phone Mike HEATH, Kevyn Gaytan Primary Care Physician [facility]counter [facility] Date(s): 07/19/19 - 07/29/19 [facility] Adult [address] [place] [address]- [facility] Attending Physician: Admsandra, Ar8 Admitting Physician: Admtr, Ar8 Referring Physician: Admtr, [...] Unknown, 0 Refills, Maintenance, 07/23/19 12:38:00 EST, [facility], 170, cm, 05/08/19 10:06:00 EST, Height Start Date: 07/23/19 Status: Ordered dicyclomine 10 mg oral capsule 2 capsule = 20 mg, By Mouth, 3 times a day, # 540 capsule, 1 Refills, Maintenance, 07/19/19 13:00:00 EST, [facility][id number], 170, cm, 05/08/19 10:06:00 EST, Height Start Date: 1/17/20 Status: Ordered lisinopril 40 mg oral tablet [...] bottles pre-mixed. Please call pt for pick pulling machine tender., Compound Start Date: 04/16/19 Status: Ordered Redi-Cat-(2) two pre-mixed 450 ml bottles Redi-Cat-(2) two pre-mixed 450 ml bottles, See Instructions, # 2 bottle, Refills 0, Tot. Refills 0,Maintenance, Follow instructions included per PCP office., 04/16/19 15:40:53 EDT, 2 (450 ml) bottles pre-mixed. Please call pt for pick pulling machine tender., Compound Start Date: 04/16/19 Status: Ordered sertraline [...]
--- OUTSIDE RECORDS SUMMARY | 2023-03-13 14:25 | XMS_ITS | Continuity of Care Document ---
Author Name Unknown Organization [facility] Bryson lt Address [address] [place] [address]- Care Team Providers Care Rubber Gasket Inspector Trimmer Name Role Phone Mike HEATH, Kevyn Gaytan Primary Care Physician Encounter [facility] Date(s): 11/05/21 - 12/05/21 [facility] Adult [address] [place] [address]- Allergies, Adverse Reactions, Alerts Substance Reaction Severity [...] 1Result Comment: [facility] [id number] 2Location History: Dr. Lao 3Location History: Dr. Lao Medications 4 wheeled walked with seat and brake 4 wheeled walked with seat and brake, See Instructions, # 1 each, Refills 0, Tot. Refills 0, Maintenance, DX:M81.0 4 wheeled walker with seat and brakes, HIPOLITO lifetime 99MOS [facility], 01/07/21 10:52:00 EDT, Supply Start [...] 11/15/21 6:26:00 EDT, Route to Pharmacy Electronically, [facility] #[id number], Partial fill upon patient request if the prescription... Start Date: 11/15/21 Stop Date: 11/15/22 Status: Ordered lidocaine 5% topical film 1 patch, Topically, Daily, PRN Pain , Mild, remove after 12 hours, # 13 each, 0 Refills, Maintenance, 09/24/21 11:47:00 EDT, [place], [facility] #[id number], Partial fill upon patient request if the prescription is for a schedule II opioid drug., 1... Start Date: 09/24/21 Status: Ordered lisinopril 20 mg oral tablet See Instructions, TAKE 1 TABLET DAILY, # 90 tablet, Refills 3, Tot. Refills 3, 11/15/21 6:27:00 EDT, Instructions Replace Required Details, Route to Pharmacy Electronically, [facility] #[id number], 170, cm, 10/25/21 16:19:00 EDT, Height Start [...] and foot rests, HIPOLITO 99MOS send to [facility], 04/12/21 16:40:00 E... Start Date: [...]
--- OUTSIDE RECORDS SUMMARY | 2023-03-13 14:25 | XMS_ITS | Continuity of Care Document ---
Author Name Unknown Organization [facility] Bryson lt Address [address] [place] [address]- Care Team Providers Care Manager Export Name Role Phone Kevyn Mckeon MD Primary Care Physician Encounter [facility] Date(s): 10/13/21 - 10/20/21 [facility] Adult [address] [place] [address]- Attending Physician: Kevyn Mckeon MD Allergies, Adverse [...] vaccine 3 07/03/00 Recorded 1Result Comment: [facility] [id number] 2Location History: Dr. Lao 3Location History: Dr. [...] 0 Refills, Maintenance, 09/24/21 11:47:00 EDT, Film, [facility] #[id number], Partial fill upon patient request if the prescription is for a schedule II opioid drug., 1... Start Date: 09/24/21 Status: Ordered lisinopril 20 mg oral tablet See Instructions, TAKE 1 TABLET DAILY, # 90 Unknown, Refills 1, Tot. Refills 1, 07/14/21 11:38:00 EST, Instructions Replace Required Details, Route to Pharmacy Electronically, [facility], 170, cm, 05/03/21 13:38:00 EDT, Height Start Date: 07/14/21 Status: Ordered LORazepam 1 mg oral tablet 1 tablet = 1 mg, By Mouth, 2 times a day, PRN as needed for anxiety, # 180 tablet, 1 Refills, Maintenance, 07/15/21 5:43:00 EST, Tablet, [facility], 170, cm, 05/03/21 13:38:00 EDT, [...] and foot rests, HIPOLITO 99MOS send to [facility], 04/12/21 16:40:00 E... Start Date: [...] Range]: 1 2 3 Height 170 cm (10/13/21 10:45 AM) 170 cm (10/13/21 10:44 AM) 170 cm (10/13/21 10:22 AM) Weight 53.3 kg (10/13/21 10:22 AM) Oxygen Saturation [94-100 %] 100 % (10/13/21 10:22 AM) Pulse Rate [55-90 bpm] 70 bpm (10/13/21 10:22 AM) Body Mass Index [18.5-24.99] 18.44 *L* (10/13/21 10:22 AM) Blood Pressure [90-138/55-84 mm Hg] 177/86mm Hg *H* (10/13/21 10:45 AM) 172/86mm Hg *H* (10/13/21 10:44 AM) 182/86mm Hg *H* (10/13/21 10:22 AM) Temperature [96.8-100.4 DegF] 98.7 DegF (10/13/21 10:22 AM) Blood pressure sites Arm, left (10/13/21 10:22 AM) Temperature Route Oral (10/13/21 10:22 AM) Weight Obtained Via Standing scale (10/13/21 10:22 AM) Social History Social History Type Response Smoking Status 10 or more cigarette s (1/2 pack or more)/day in last 30 days; Other: Currently smoking about 8-10 cigarettes daily.; entered on: 08/27/19 Sex
--- OUTSIDE RECORDS SUMMARY | 2023-03-13 14:25 | XMS_ITS | Continuity of Care Document ---
Author Name Unknown Organization [facility] Bryson lt Address [address] [place] [address]- Care Team Providers Care Assistant Professor Of Biochemistry Name Role Phone Kevyn Mckeon MD Primary Care Physician Encounter [facility] Date(s): 12/10/20 - 12/17/20 [facility] Adult [address] [place] [address]- Encounter Diagnosis Essential hypertension(Discharge Diagnosis) - 12/10/20 Osteoarthritis of both hands(Discharge Diagnosis) - 12/10/20 Major depression(Discharge Diagnosis) - 12/10/20 Osteoporosis(Discharge Diagnosis) - 12/10/20 Claudication(Discharge Diagnosis) - 12/10/20 Hyperlipidemia(Discharge Diagnosis) - 12/10/20 IBS (irritable bowel syndrome) with diarrhea(Discharge Diagnosis) - 12/10/20 Attending Physician: Kevyn Mckeon MD Allergies, Adverse [...] 23-valent vaccine 3 07/03/00 Recorded 1Result Comment: [facility] [id number] 2Location History: Dr. Lao 3Location History: Dr. [...] mL, 2 Refills, Maintenance, 11/23/20 16:34:00 EDT, [place], [facility] #[id number], Partial fill upon patient request if the prescription is for a schedule II opioid drug., 2 sprays Nares, B... Start Date: 11/23/20 Status: Ordered dicyclomine 10 mg oral capsule 2 capsule = 20 mg, By Mouth, 3 times a day, # 180 capsule, 5 Refills, Maintenance, 07/06/20 17:01:00 EST, [facility] #[id number], 170, cm, 05/11/20 13:39:00 EST, Height Start Date: 07/06/20 Status: Ordered ibuprofen 800 mg oral tablet 800 mg, 1, tablet, By Mouth, 2 times a day, # 270 tablet, Refills 1, Tot. Refills 1, Acute 05/19/2117:45:00 EST, 11/16/20 17:32:00 EDT, Route to Pharmacy Electronically, [facility] #[id number],Partial fill upon patient request if the prescripti... [...] ml) bottles pre-mixed. Please call pt for quill picking machine operator., Compound Start Date: 04/16/19 Status: Ordered Redi-Cat-(2) two pre-mixed 450 ml bottles Redi-Cat-(2) two pre-mixed 450 ml bottles, See Instructions, # 2 bottle, Refills 0, Tot. Refills 0,Maintenance, Follow instructions included per PCP office., 04/16/19 15:40:53 EDT, 2 (450 ml) bottles pre-mixed. Please call pt for quill picking machine operator., Compound Start Date: 04/16/19 [...] Diagnosis Diagnosis Type Effective Dates Health Status Clinical Service Informant Essential hypertension Discharge Diagnosis 12/10/20 Osteoarthritis of both hands Discharge Diagnosis 12/10/20 Major depression Discharge Diagnosis 12/10/20 Osteoporosis Discharge Diagnosis 12/10/20 Claudication Discharge Diagnosis 12/10/20 Hyperlipidemia Discharge Diagnosis 12/10/20 IBS (irritable bowel syndrome) with diarrhea Discharge Diagnosis 12/10/20 Vital Signs Most recent to oldest [Reference Range]: 1 Height 170 cm (12/10/20 1:41 PM) Weight 53.7 kg (12/10/20 1:41 PM) Oxygen Saturation [94-100 %] 97 % (12/10/20 1:41 PM) Pulse Rate [55-90 bpm] 70 bpm (12/10/20 1:41 PM) Body Mass Index [18.5-24.99] 18.58 (12/10/20 1:41 PM) Blood Pressure [90-138/55-84 mm Hg] 128/ 64mm Hg (12/10/20 1:41 PM) Temperature [96.8-100.4 DegF] 98.5 DegF (12/10/20 1:41 PM) Mode of Delivery (Oxygen) Room air (12/10/20 1:41 PM) Blood pressure sites Arm, left (12/10/20 1:41 PM) Temperature Route Oral (12/10/20 1:41 PM) Weight Obtained Via Standing scale (12/10/20 1:41 PM) Social History Social History Type Response Smoking Status 10 or more cigarette s (1/2 pack or more)/day in last 30 days; Other: Currently smoking about 8-10 cigarettes daily.; entered on: 08/27/19 Sex
--- OUTSIDE RECORDS SUMMARY | 2023-03-13 14:25 | XMS_ITS | Continuity of Care Document ---
Author Name Unknown Organization [facility] Bryson lt Address [address] [place] [address]- Care Team Providers Care Paper Cone Maker Name Role Phone Mike HEATH, Kevyn Gaytan Primary Care Physician Encounter [facility] Date(s): 11/16/20 - 12/16/20 [facility] Adult [address] [place] [address]- Allergies, Adverse Reactions, Alerts Substance Reaction Severity [...] Recorded 1Result Comment: [facility] [id number] 2Location History: Dr. Lao 3Location History: Dr. [...] mL, 2 Refills, Maintenance, 11/23/20 16:34:00 EDT, [place], [facility] #[id number], Partial fill upon patient request if the prescription is for a schedule II opioid drug., 2 sprays Nares, B... Start Date: 11/23/20 Status: Ordered dicyclomine 10 mg oral capsule 2 capsule = 20 mg, By Mouth, 3 times a day, # 180 capsule, 5 Refills, Maintenance, 07/06/20 17:01:00 EST, [facility] #[id number], 170, cm, 05/11/20 13:39:00 EST, Height Start Date: 07/06/20 Status: Ordered ibuprofen 800 mg oral tablet 800 mg, 1, tablet, By Mouth, 2 times a day, # 270 tablet, Refills 1, Tot. Refills 1, Acute 05/19/2117:45:00 EST, 11/16/20 17:32:00 EDT, Route to Pharmacy Electronically, [facility] #[id number],Partial fill upon patient request if the prescripti... [...] ml) bottles pre-mixed. Please call pt for waste picker., Compound Start Date: 04/16/19 Status: Ordered Redi-Cat-(2) two pre-mixed 450 ml bottles Redi-Cat-(2) two pre-mixed 450 ml bottles, See Instructions, # 2 bottle, Refills 0, Tot. Refills 0,Maintenance, Follow instructions included per PCP office., 04/16/19 15:40:53 EDT, 2 (450 ml) bottles pre-mixed. Please call pt for waste picker., Compound Start Date: 04/16/19 Status: Ordered [...]
--- OUTSIDE RECORDS SUMMARY | 2023-03-13 14:25 | XMS_ITS | Continuity of Care Document ---
Author Name Unknown Organization [facility] Address [address] [place] [address]- Care Team Providers Care Cellophane Press Operator Name Role Phone Mike HEATH, Kevyn Gaytan Primary Care Physician Encounter [facility] Date(s): 08/17/22 - 09/16/22 [facility] Adult [address] [place] [address]- Allergies, Adverse Reactions, Alerts Substance Reaction Severity Status sulfa drugs Active Flonase Active Demerol HCl Active Percocet 5/325 Active ZyrTEC rash Active Immunizations Given and Recorded Vaccine Date Status Refusal Reason pneumococcal 23-valent vaccine 1 07/06/22 Given pneumococcal 23-valent vaccine 2 07/03/00 Recorded Influenza Virus Vaccine (oldterm) 3 04/06/22 Recor ded Influenza Virus Vaccine (oldterm) 03/02/20 Recorde d [id number] 12y+ bivalent booster vax 4 04/06/22 Recorded [id number] 12y+ bivalent booster vax 5 04/06/22 Recorded [...] tetanus/diphtheria/pertussis, acel(Tdap) 8 07/03/08 Recorded 1Result Comment: [id number] 2Location History: Dr. Lao 3Result Comment: Nida DUPLICATE 4Result Comment: Nida 5Result Comment: DUPLICATE 6Result Comment: NIDA 7Result Comment: [facility] [id number] 8Location History: Dr. Lao Medications amLODIPine 10 mg oral tablet 10 mg, 1, tablet, By Mouth, Daily, Increase in dose, # 90 tablet, Refills 3, Tot. Refills 3, Maintenance, 04/27/22 13:48:00 EDT, Route to Pharmacy Electronically, [facility] #[id number], Partialfill upon patient request if the prescription is fo... Start Date: 04/27/22 Status: Ordered duloxetine 30 mg oral enteric coated capsule 1 capsule = 30 mg, By Mouth, 2 times a day, Increase in dose, # 180 capsule, 3 Refills, Maintenance, 04/27/22 13:42:00 EDT, [facility] #[id number], Partial fill upon patient request if the [...] 11/15/22 6:26:00 EDT, Route to Pharmacy Electronically, [facility] #[id number], Partial fill upon patient request if the prescriptio... Start Date: 11/15/22 Stop Date: 11/16/22 Status: Ordered ibuprofen 800 mg oral tablet 800 mg, 1, tablet, By Mouth, 2 times a day, # 270 tablet, Refills 1, Tot. Refills 1, Acute :26:00 EDT, 11/15/21 6:26:00 EDT, Route to Pharmacy Electronically, [facility] #[id number], Partial fill upon patient request if the prescription... Start Date: 11/15/21 Stop Date: 11/15/22 Status: Ordered lisinopril 20 mg oral tablet See Instructions, TAKE 1 TABLET DAILY, # 90 tablet, Refills 3, Tot. Refills 3, 11/15/21 6:27:00 EDT, Instructions Replace Required Details, Route to Pharmacy Electronically, [facility] #[id number], 170, cm, 10/25/21 16:19:00 EDT, Height Start Date: 11/15/21 Status: Ordered LORazepam 1 mg oral tablet 1 tablet = 1 mg, By Mouth, 2 times a day, PRN as needed for anxiety, # 60 tablet, 2 Refills, Maintenance, 07/28/22 14:24:00 EST, Tablet, [facility] #[id number], 170, cm, 07/06/22 13:11:00 EST, Height Start [...] claudication 1 Confirmed Active Underweight Confirmed Active 65386 CTA: IMPRESSION: 1. 70% stenosis of the [...] Personnel Name: Mike HEATH, Kevyn Gaytan Position: [facility] Primary Care Physician Member Role: PCP Address: Address: [address] [place] [address]- Care Team Related Persons Name: MARYCRUZ MANN Name: NO, NONE Name: DAVID KRAFT Address: home [address] [place] [address] [place] [id number]
--- OUTSIDE RECORDS SUMMARY | 2023-03-13 14:25 | XMS_ITS | Continuity of Care Document ---
Author Name Unknown Organization [facility] Address [address] [place] [address]- Care Team Providers Care Getter Filler Name Role Phone Mike HEATH, Kevyn Gaytan Primary Care Physician Encounter [facility] Date(s): 10/29/21 - 11/28/21 [facility] Adult [address] [place] [address]- Allergies, Adverse Reactions, Alerts Substance Reaction Severity [...] 23-valent vaccine 3 07/03/00 Recorded 1Result Comment: [facility] [id number] 2Location History: Dr. Lao 3Location History: Dr. Lao Medications 4 wheeled walked with seat and brake 4 wheeled walked with seat and brake, See Instructions, # 1 each, Refills 0, Tot. Refills 0, Maintenance, DX:M81.0 4 wheeled walker with seat and brakes, HIPOLITO lifetime 99MOS [facility], 01/07/21 10:52:00 EDT, Supply Start Date: [...] 11/15/21 6:26:00 EDT, Route to Pharmacy Electronically, [facility] #[id number], Partial fill upon patient request if the prescription... Start Date: 11/15/21 Stop Date: 11/15/22 Status: Ordered lidocaine 5% topical film 1 patch, Topically, Daily, PRN Pain , Mild, remove after 12 hours, # 13 each, 0 Refills, Maintenance, 09/24/21 11:47:00 EDT, Film, [facility] #[id number], Partial fill upon patient request if the prescription is for a schedule II opioid drug., 1... Start Date: 09/24/21 Status: Ordered lisinopril 20 mg oral tablet See Instructions, TAKE 1 TABLET DAILY, # 90 tablet, Refills 3, Tot. Refills 3, 11/15/21 6:27:00 EDT, Instructions Replace Required Details, Route to Pharmacy Electronically, [facility] #[id number], 170, cm, 10/25/21 16:19:00 EDT, Height Start [...] and foot rests, HIPOLITO 99MOS send to [facility], 04/12/21 16:40:00 E... Start Date: 04/12/21 [...]
--- OUTSIDE RECORDS SUMMARY | 2023-03-13 14:25 | XMS_ITS | Continuity of Care Document ---
Author Name Unknown Organization [facility] Address [address] [place] [address] [address] [place] [address]- Care Team Providers Care Paper Roller Name Role Phone Mike HEATH, Kevyn Gaytan Primary Care Physician [phone] Encounter [facility] Date(s): 01/11/23 - 02/10/[address] [place], [place] [address] Attending Physician: Nessa Rouse Admitting Physician: AdmNessa flores Referring Physician: Admtr, Jeramy8 Allergies, Adverse Reactions, Alerts Substance Reaction Severity Status sulfa drugs Active Flonase Active ZyrTEC rash Active Demerol HCl Active Percocet 5/325 Active Immunizations Given and Recorded Vaccine Date Status Refusal Reason pneumococcal 23-valent vaccine 1 07/06/22 Given pneumococcal 23-valent vaccine 2 07/03/00 Recorded Influenza Virus Vaccine (oldterm) 3 04/06/22 Recor ded Influenza Virus Vaccine (oldterm) 03/02/20 Recorde d [id number] 12y+ bivalent booster vax 4 04/06/22 Recorded [id number] 12y+ bivalent booster vax 5 04/06/22 Recorded [...] tetanus/diphtheria/pertussis, acel(Tdap) 8 07/03/08 Recorded 1Result Comment: [id number] 2Location History: Dr. Lao 3Result Comment: Nida DUPLICATE 4Result Comment: Nida 5Result Comment: DUPLICATE 6Result Comment: NIDA 7Result Comment: [facility] [id number] 8Location History: Dr. Lao Medications acetaminophen 500 mg [...] 04/27/22 13:48:00 EDT, Route to Pharmacy Electronically, [facility] #[id number], Partialfill upon patient request if the prescription is fo... Start Date: 04/27/22 Status: Ordered dicyclomine 20 mg oral tablet 1 tablet = 20 mg, By Mouth, 4 times a day, PRN spasm, Increase in dose, # 56 tablet, 5 Refills, Maintenance, 10/19/22 13:40:00 EDT, Tablet, [facility] #[id number], Partial fill upon patient request if the prescription is for a schedule II opioid... Start Date: 10/19/22 Stop Date: 01/11/23 Status: Ordered duloxetine 30 mg oral enteric coated capsule 1 capsule = 30 mg, By Mouth, 2 times a day, Increase in dose, # 180 capsule, 3 Refills, Maintenance, 04/27/22 13:42:00 EDT, [facility] #[id number], Partial fill upon patient request if the [...] 01/26/23 12:33:00 EDT, Route to Pharmacy Electronically, [facility] #[id number], 165, cm, 01/11/23 11:25:00 EDT, Height Start Date: 01/26/23 Stop Date: 01/21/24 Status: Ordered LORazepam 1 mg oral tablet 1 tablet = 1 mg, By Mouth, 2 times a day, PRN as needed for anxiety, # 60 tablet, 2 Refills, Maintenance, 11/06/22 6:34:00 EDT, Tablet, [facility] #[id number], 170, cm, 10/19/22 13:31:00 EDT, Height Start Date: 11/06/22 Status: Ordered LORazepam 1 mg oral tablet 1 tablet = 1 mg, By Mouth, 3 times a day, 0 Refills, Maintenance, 10/19/22 11:20:00 EDT, Partial fill upon patient request if the prescription is for a schedule II opioid drug. Start Date: 10/19/22 Status: Ordered Misc Rx Refills 0, Maintenance, probiotic, 10/19/22 13:25:00 EDT, Supply Start Date: 10/19/22 Status: Ordered sertraline 50 mg oral tablet 1 tablet, By Mouth, 2 times a day, # 180 tablet, 3 Refills, Maintenance, 09/22/22 5:18:00 EDT, [facility]), 170, cm, 09/07/22 11:31:00 EST, [...] claudication 1 Confirmed Active Underweight Confirmed Active 46209 CTA: IMPRESSION: 1. 70% stenosis of the [...] Name: Kevyn Mckeon MD Position: [facility] Physician - Primary Care Member Role: PCP Address: Address: [address] [place] [address]- Name: Gemini Alfaro Position: [facility] Pool Attendant Member Role: Nurse Clinician Care Team Related Persons Name: CATY LOCKWOOD Name: MARYCRUZ MANN Name: MARYCRUZ TORRES Name: NO, NONE Name: DAVID KRAFT Address: home [address] [place] [id number]
--- OUTSIDE RECORDS SUMMARY | 2023-03-13 14:25 | XMS_ITS | Continuity of Care Document ---
Author Name Unknown Organization [facility] Address [address] [place] [address]- Care Team Providers Care Sound Editor Name Role Phone Kevyn Mckeon MD Primary Care Physician [phone] [place] [facility] Date(s): 06/09/21 - 06/16/21 [facility] Adult [address] [place] [address]- Attending Physician: Kevyn Mckeon MD Allergies, Adverse [...] 1Result Comment: [facility] [id number] 2Location History: Dr. Lao 3Location History: Dr. Lao Medications 4 wheeled walked with seat and brake 4 wheeled walked with seat and brake, See Instructions, # 1 each, Refills 0, Tot. Refills 0, Maintenance, DX:M81.0 4 wheeled walker with seat and brakes, HIPOLITO lifetime 99MOS [facility], 01/07/21 10:52:00 EDT, Supply Start Date: 01/07/21 Status: Ordered amLODIPine 2.5 mg oral tablet 1 tablet, By Mouth, Daily, # 90 tablet, 3 Refills, Maintenance, 02/23/21 11:22:00 EDT, [facility], 170, cm, 02/01/21 12:54:00 EDT, Height Start Date: 02/23/21 Status: Ordered fentanyl 12 mcg/hr transdermal film, extended release 1 patch, Topically, Every 72 hours, # 10 film, 0 Refills, Maintenance, 05/10/21 14:43:00 EST, Patch, [facility] #[id number], Partial fill upon patient request if the prescription is for a schedule II opioid drug., 170, cm, 05/03/21 13:38:00 EDT,... Start Date: 05/10/21 Status: Ordered lisinopril 20 mg oral tablet See Instructions, TAKE 1 TABLET DAILY, # 90 Unknown, Refills 0, Maintenance, Instructions Replace Required Details, Route to Pharmacy Electronically, [facility], 170, cm, 12/10/20 13:41:00 EDT, Height Start Date: 01/26/21 Status: Ordered LORazepam 1 mg oral tablet 1 tablet = 1 mg, By Mouth, 2 times a day, PRN as needed for anxiety, # 180 tablet, 1 Refills, Maintenance, 05/19/21 6:54:00 EST, Tablet, [facility], 170, cm, 05/03/21 13:38:00 EDT, [...] tablet, 1 Refills, Maintenance, 12/11/20 14:10:00 EDT, [facility], 170, cm, 12/10/20 13:41:00 EDT, Height Start Date: 12/11/20 Status: Ordered Standard lightweight wheel chair with brakes and foot rests Standard lightweight wheel chair with brakes and foot rests, See Instructions, # 1 each, Refills 0,Tot. Refills 0, Maintenance, DX;M81.0 Standard lightweight wheelchair with brakes and foot rests, HIPOLITO 99MOS send to [facility], 04/12/21 16:40:00 E... Start [...]
--- OUTSIDE RECORDS SUMMARY | 2023-03-13 14:25 | XMS_ITS | Continuity of Care Document ---
Author Name Unknown Organization [facility] Address [address] [place] [address]- Care Team Providers Care Linotype Worker Name Role Phone Kevyn Mckeon MD Primary Care Physician Encounter 02/26/21 - 03/05/21 [facility] [address], [address] [place] [address]- Attending Physician: Kevyn Mckeon MD Admitting Physician: Franca Lee NP Referring Physician: Kevyn Mckeon MD Allergies, [...] vaccine 3 07/03/00 Recorded 1Result Comment: [facility] [id number] 2Location History: Dr. Lao 3Location History: Dr. Lao Medications 4 wheeled walked with seat and brake 4 wheeled walked with seat and brake, See Instructions, # 1 each, Refills 0, Tot. Refills 0, Maintenance, DX:M81.0 4 wheeled walker with seat and brakes, HIPOLITO lifetime 99MOS [facility], 07/08/21 10:52:00 EDT, Supply Start Date: 01/07/21 Status: [...] mL, 2 Refills, Maintenance, 11/23/20 16:34:00 EDT, [facility] #[id number], Partial fill upon patient request if the prescription is for a schedule II opioid drug., 2 sprays Nares, B... Start Date: 11/23/20 Status: Ordered dicyclomine 10 mg oral capsule 2 capsule = 20 mg, By Mouth, 3 times a day, # 180 capsule, 5 Refills, Maintenance, 07/06/20 17:01:00 EST, [facility] #[id number], 170, cm, 05/11/20 13:39:00 EST, Height Start Date: 07/06/20 Status: Ordered ibuprofen 800 mg oral tablet 800 mg, 1, tablet, By Mouth, 2 times a day, # 270 tablet, Refills 1, Tot. Refills 1, Acute 05/19/2117:45:00 EST, 11/16/20 17:32:00 EDT, Route to Pharmacy Electronically, [facility] #[id number],Partial fill upon patient request if the prescripti... Start Date: 11/16/20 Stop Date: 05/19/21 Status: Ordered lidocaine 5% topical film 1 patch, Topically, Daily, PRN Pain , Mild, remove after 12 hours, # 5 patch, 0 Refills, Maintenance, 01/18/21 13:10:00 EDT, Film, [facility] #[id number], Partial fill upon patient request if the prescription is for a schedule II opioid drug., 1... Start Date: 01/18/21 Stop Date: 01/23/21 Status: Ordered lisinopril 20 mg oral tablet See Instructions, TAKE 1 TABLET DAILY, # 90 Unknown, Refills 0, Maintenance, Instructions Replace Required Details, Route to Pharmacy Electronically, [facility], 170, cm, 12/10/20 13:41:00 EDT, Height [...] ml) bottles pre-mixed. Please call pt for car pick up driver., Compound Start Date: 04/16/19 Status: Ordered Redi-Cat-(2) two pre-mixed 450 ml bottles Redi-Cat-(2) two pre-mixed 450 ml bottles, See Instructions, # 2 bottle, Refills 0, Tot. Refills 0,Maintenance, Follow instructions included per PCP office., 04/16/19 15:40:53 EDT, 2 (450 ml) bottles pre-mixed. Please call pt for car pick up driver., Compound Start Date: 04/16/19 Status: Ordered [...]
--- OUTSIDE RECORDS SUMMARY | 2023-03-13 14:26 | XMS_ITS | Continuity of Care Document ---
Author Name Unknown Organization [facility] Address [address] [place] [address]- Care Team Providers Care Bulkhead Carpenter Name Role Phone Mike HEATH, Kevyn Gaytan Primary Care Physician [phone] Encounter [facility] Date(s): 11/12/21 - 12/12/21 [facility] Adult [address] [place] [address]- Allergies, Adverse Reactions, Alerts Substance Reaction Severity [...] 23-valent vaccine 3 07/03/00 Recorded 1Result Comment: [facility] [id number] 2Location History: Dr. Lao 3Location History: Dr. Lao Medications 4 wheeled walked with seat and brake 4 wheeled walked with seat and brake, See Instructions, # 1 each, Refills 0, Tot. Refills 0, Maintenance, DX:M81.0 4 wheeled walker with seat and brakes, HIPOLITO lifetime 99MOS [facility], 01/07/21 10:52:00 EDT, Supply Start Date: [...] 11/15/21 6:26:00 EDT, Route to Pharmacy Electronically, [facility] #[id number], Partial fill upon patient request if the prescription... Start Date: 11/15/21 Stop Date: 11/15/22 Status: Ordered lidocaine 5% topical film 1 patch, Topically, Daily, PRN Pain , Mild, remove after 12 hours, # 13 each, 0 Refills, Maintenance, 09/24/21 11:47:00 EDT, Film, [facility] #[id number], Partial fill upon patient request if the prescription is for a schedule II opioid drug., 1... Start Date: 09/24/21 Status: Ordered lisinopril 20 mg oral tablet See Instructions, TAKE 1 TABLET DAILY, # 90 tablet, Refills 3, Tot. Refills 3, 11/15/21 6:27:00 EDT, Instructions Replace Required Details, Route to Pharmacy Electronically, [facility] #[id number], 170, cm, 10/25/21 16:19:00 EDT, Height Start [...] and foot rests, HIPOLITO 99MOS send to [facility], 04/12/21 16:40:00 E... Start Date: 04/12/21 Status: Ordered Problem List Condition Effective Dates Status Health Status Inform ant Allergic rhinitis(Confirmed) Active Oliveira's esophagus(Confirmed) Active Osteoarthritis of both hands(Confirmed) Active Essential hypertension(Confirmed) Active IBS (irritable bowel syndrom e) with diarrhea(Confirmed) Active Major depression(Confirmed) Active Osteoporosis(Confirmed) Active PVD (peripheral vascular dis ease) with claudication(Confirmed) 1 Active Underweight(Confirmed) Active 75404 CTA: IMPRESSION: 1. 70% stenosis of the [...]
--- OUTSIDE RECORDS SUMMARY | 2023-03-13 14:26 | XMS_ITS | Continuity of Care Document ---
Author Name Unknown Organization [facility] Bryson lt Address [address] [place] [address]- Care Team Providers Care Nib Finisher Name Role Phone Kevyn Mckeon MD Primary Care Physician [phone] [facility]counter [facility] [id number] Date(s): 02/01/23 - 02/08/23 [facility] Adult [address] [place] [address]- Attending Physician: Kevyn Mckeon MD Allergies, Adverse Reactions, Alerts Substance Reaction Severity Status sulfa drugs Active Flonase Active Demerol HCl Active Percocet 5/325 Active ZyrTEC rash Active Immunizations Given and Recorded Vaccine Date Status Refusal Reason pneumococcal 23-valent vaccine 1 07/06/22 Given pneumococcal 23-valent vaccine 2 07/03/00 Recorded Influenza Virus Vaccine (oldterm) 3 04/06/22 Recor ded Influenza Virus Vaccine (oldterm) 03/02/20 Recorde d [id number] 12y+ bivalent booster vax 4 04/06/22 Recorded [id number] 12y+ bivalent booster vax 5 04/06/22 Recorded [...] tetanus/diphtheria/pertussis, acel(Tdap) 8 07/03/08 Recorded 1Result Comment: [id number] 2Location History: Dr. Lao 3Result Comment: Nida DUPLICATE 4Result Comment: Nida 5Result Comment: DUPLICATE 6Result Comment: NIDA 7Result Comment: [facility] [id number] 8Location History: Dr. Lao Medications acetaminophen 500 [...] 04/27/22 13:48:00 EDT, Route to Pharmacy Electronically, [facility] #[id number], Partialfill upon patient request if the prescription is fo... Start Date: 04/27/22 Status: Ordered dicyclomine 20 mg oral tablet 1 tablet = 20 mg, By Mouth, 4 times a day, PRN spasm, Increase in dose, # 56 tablet, 5 Refills, Maintenance, 10/19/22 13:40:00 EDT, Tablet, [facility] #[id number], Partial fill upon patient request if the prescription is for a schedule II opioid... Start Date: 10/19/22 Stop Date: 01/11/23 Status: Ordered duloxetine 30 mg oral enteric coated capsule 1 capsule = 30 mg, By Mouth, 2 times a day, Increase in dose, # 180 capsule, 3 Refills, Maintenance, 04/27/22 13:42:00 EDT, [facility] #[id number], Partial fill upon patient request if the [...] 01/26/23 12:33:00 EDT, Route to Pharmacy Electronically, [facility] #[id number], 165, cm, 01/11/23 11:25:00 EDT, Height Start Date: 01/26/23 Stop Date: 01/21/24 Status: Ordered LORazepam 1 mg oral tablet 1 tablet = 1 mg, By Mouth, 2 times a day, PRN as needed for anxiety, # 60 tablet, 2 Refills, Maintenance, 11/06/22 6:34:00 EDT, Tablet, [facility] #[id number], 170, cm, 10/19/22 13:31:00 EDT, Height Start Date: 11/06/22 Status: Ordered LORazepam 1 mg oral tablet 1 tablet = 1 mg, By Mouth, 3 times a day, 0 Refills, Maintenance, 10/19/22 11:20:00 EDT, Partial fill upon patient request if the prescription is for a schedule II opioid drug. Start Date: 10/19/22 Status: Ordered [facility] [place] Refills 0, Maintenance, probiotic, 10/19/22 [...] claudication 1 Confirmed Active Underweight Confirmed Active 03460 CTA: IMPRESSION: 1. 70% stenosis of the [...] recent to oldest [Reference Range]: 1 Height 164.5 cm (02/01/23 4:03 PM) Weight 46.3 kg (02/01/23 4:03 PM) Oxygen Saturation [94-100 %] 99 % (02/01/23 4:03 PM) Pulse Rate [55-90 bpm] 73 bpm (02/01/23 4:03 PM) Body Mass Index [18.5-24.99 kg/m2] 17.11 kg/m2 *L* (02/01/23 4:03 PM) Blood Pressure [90-138/55-84 mm Hg] 97/5 8mm Hg (02/01/23 4:03 PM) Mode of Delivery (Oxygen) Room air (02/01/23 4:03 PM) Blood pressure sites Arm, left (02/01/23 4:03 PM) Weight Obtained Via Standing scale (02/01/23 4:03 PM) Social History Social History Type Response Smoking Status 10 or more cigarette s (1/2 pack or more)/day in last 30 days; Other: Currently smoking about 8-10 cigarettes daily.; entered on: 08/27/19 Sex Note * Maddi Gill: PERFORM, SIGN, VERIFY Event Display: Patient Education/Instruction Authored Date: [id number] [facility] *BMP Jackie Canada Clinical Summary Name ANAND KRAFT Age 72 Years 1950 PCP Mike HEATH, Kevyn Gaytan PCP [facility]# [id number] Visit Date 02/01/2023 15:42:00 Additional Instructions: Scheduled Appointments?? Future Appointments ?No Future Appointments Scheduled Follow-Up Instructions ?? 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 Discuss any questions related to medications with your provider. Medications to Continue with No Changes These medications were not printed or sent to your pharmacy Acetaminophen (acetaminophen 500 mg oral tablet) 1 tab(s) Oral twice a day. Next Dose: Amlodipine (amLODIPine 10 mg oral tablet) 1 [...] Dose: Lisinopril (lisinopril 20 mg oral tablet) 1 tab(s) Oral Daily for 90 Days. Refills: 3. Next Dose: Lorazepam (LORazepam 1 mg oral tablet) 1 tab(s) Oral twice a day as needed as needed for anxiety. Refills: 2. Next Dose: Lorazepam (LORazepam 1 mg oral tablet) 1 tab(s) Oral 3 times a day. Next Dose: Miscellaneous Rx (Misc Rx) probiotic. Next Dose: Sertraline (sertraline 50 mg oral tablet) 1 tab(s) Oral twice a day. Refills: 3. Next Dose: Allergy Info:?? ZyrTEC; Percocet 5/325; Demerol HCl; Flonase; sulfa drugs Medications Given This Visit Future Orders ?No future orders Vital Signs Height 164.5 cm Weight 46.3 kg BMI 17.11 kg/m2 Blood Pressure 97 mm Hg/58 mm Hg Temperature Pulse Rate 73 bpm Respiratory Rate 02 Sat Mode of Delivery 99 %/Room air You can now view a summary of your hospital visit from the comfort of your home through a free online portal called [employer]. [employer] is a website that allows you to securely view your medical information including discharge summary, medications and follow-up visits. ??You can alsosend a secure electronic message to your doctor???s office to request appointments, renew medications or just ask a question. You can enroll at [email or web address] or register during your next office visit. [...] primary care provider, you may find a [facility] provider by calling [facility] [employer] Link at [phone]. For information about the plan of care [...] Team Personnel Name: Kevyn Mckeon MD Position: [facility] Physician - Primary Care Member Role: PCP Address: Address: [address] [place] [id number] Name: Gemini Alfaro Position: [facility] Rotary Screen Printing Machine Operator Member Role: Abrasive Sawyer Care Team Related Persons Name: CATY LOCKWOOD Name: MARYCRUZ MANN Name: MARYCRUZ TORRES Name: NO, NONE Name: DAVID KRAFT Address: [address] [address]
--- OUTSIDE RECORDS SUMMARY | 2023-03-13 14:26 | XMS_ITS | Continuity of Care Document ---
Author Name Unknown Organization [facility] Bryson lt Address [address] [place] [address]- Care Team Providers Care Installation Engineer Name Role Phone Mike HEATH, Kevyn Gaytan Primary Care Physician Encounter [facility] Date(s): 03/02/21 - 04/01/21 [facility] Adult [address] [place] [address]- Referring Physician: Navi Blackmon Allergies, Adverse Reactions, Alerts Substance Reaction Severity [...] 23-valent vaccine 3 07/03/00 Recorded 1Result Comment: [facility] [id number] 2Location History: Dr. Lao 3Location History: Dr. Lao Medications 4 wheeled walked with seat and brake 4 wheeled walked with seat and brake, See Instructions, # 1 each, Refills 0, Tot. Refills 0, Maintenance, DX:M81.0 4 wheeled walker with seat and brakes, HIPLOITO lifetime 99MOS [facility] to [facility] address, 01/07/21 10:52:00 EDT, Supply Start Date: 01/07/21 Status: Ordered amLODIPine 2.5 mg oral tablet 1 tablet, By Mouth, Daily, # 90 tablet, 3 Refills, Maintenance, 02/23/21 11:22:00 EDT, [facility], 170, cm, 02/01/21 12:54:00 EDT, Height Start Date: 02/23/21 Status: Ordered azelastine 137 mcg/inh (0.1%) nasal spray 2 sprays, Nares, Both, Daily, PRN Other Allergies, # 30 mL, 2 Refills, Maintenance, 11/23/20 16:34:00 EDT, [facility] #[id number], Partial fill upon patient request if the prescription is for a schedule II opioid drug., 2 sprays Nares, B... Start Date: 11/23/20 Status: Ordered dicyclomine 10 mg oral capsule 2 capsule = 20 mg, By Mouth, 3 times a day, # 180 capsule, 5 Refills, Maintenance, 07/06/20 17:01:00 EST, [facility] #[id number], 170, cm, 05/11/20 13:39:00 EST, Height Start Date: 07/06/20 Status: Ordered ibuprofen 800 mg oral tablet 800 mg, 1, tablet, By Mouth, 2 times a day, # 270 tablet, Refills 1, Tot. Refills 1, Acute 05/19/2117:45:00 EST, 11/16/20 17:32:00 EDT, Route to Pharmacy Electronically, [facility] #[id number],Partial fill upon patient request if the prescripti... Start Date: 11/16/20 Stop Date: 05/19/21 Status: Ordered lidocaine 5% topical film 1 patch, Topically, Daily, PRN Pain , Mild, remove after 12 hours, # 5 patch, 0 Refills, Maintenance, 01/18/21 13:10:00 EDT, Film, [facility] #[id number], Partial fill upon patient request if the [...]
--- OUTSIDE RECORDS SUMMARY | 2023-03-13 14:26 | XMS_ITS | Continuity of Care Document ---
Author Name Unknown Organization [facility] Address [address] [place] [address]- Care Team Providers Care Croze Cutter Name Role Phone Mike HEATH, Kevyn Gaytan Primary Care Physician En[place] [facility] Date(s): 01/26/23 - 02/25/23 [facility] [address] [place] [address]- Allergies, Adverse Reactions, Alerts Substance Reaction Severity [...] Given pneumococcal 23-valent vaccine 2 07/03/00 Recorded [id number] 12y+ bivalent booster vax 3 04/06/22 Recorded [...] tetanus/diphtheria/pertussis, acel(Tdap) 6 07/03/08 Recorded 1Result Comment: [id number] 2Location History: Dr. Lao 3Result Comment: Nida 4Result Comment: NIDA 5Result Comment: [facility] [id number] 6Location History: Dr. Lao Medications acetaminophen 325 mg oral tablet 975 mg, By Mouth, 3 times a day, # 12 tablet, Refills 0, Tot. Refills 0, Acute 02/27/23 0:00:00 EDT, 02/24/23 16:21:00 EDT, Route to Pharmacy Electronically, [facility] #[id number], Partial fillupon patient request if the prescription [...] 04/27/22 13:48:00 EDT, Route to Pharmacy Electronically, [facility] #[id number], Partialfill upon patient request if the prescription [...] 5 Refills, Maintenance, 10/19/22 13:40:00 EDT, Tablet, [facility] #[id number], Partial fill upon patient request if the prescription is for a schedule II opioid... Start Date: 10/19/22 Stop Date: 01/11/23 Status: Ordered duloxetine 30 mg oral enteric coated capsule 1 capsule = 30 mg, By Mouth, 2 times a day, Increase in dose, # 180 capsule, 3 Refills, Maintenance, 04/27/22 13:42:00 EDT, [facility] #[id number], Partial fill upon patient request if the [...] 02/24/23 16:21:00 EDT, Route to Pharmacy Electronically, [facility] #[id number], Partial fill upon patient request if the prescription is for a schedule II opi... Start Date: 02/24/23 Stop Date: 03/03/23 Status: Ordered ibuprofen 600 mg oral tablet 600 mg, By Mouth, 3 times a day, for 3 days, # 9 tablet, Refills 0, Tot. Refills 0, Acute 02/27/23 16:21:00 EDT, 02/24/23 16:21:00 EDT, Route to Pharmacy Electronically, [facility] #[id number], Partial fill upon patient request if the prescriptio... Start Date: 02/24/23 Stop Date: 02/27/23 Status: Ordered lisinopril 20 mg oral tablet 20 mg, 1, tablet, By Mouth, Daily, for 90 days, # 90 tablet, Refills 3, Tot. Refills 3, Physician Stop 01/21/24 12:33:00 EDT, 01/26/23 12:33:00 EDT, Route to Pharmacy Electronically, [facility] #[id number], 165, cm, 01/11/23 11:25:00 EDT, Height Start [...] claudication 1 Confirmed Active Underweight Confirmed Active 66301 CTA: IMPRESSION: 1. 70% stenosis of the [...] Safety Implantable Status Assigning Authority Unknown Unknown [id number] Unknown 11/27/26 Unknown Unknown Active Unknown Procedure Provider Procedure Date Device Type Site Repair Hernia Inguinal Open Gavino Dunlap MD 02/22/23 Un known Abdomen Device Identifier Serial Number Lot or Batch Number Manufacturing Date Expiration Date Distinct Identification Code MRI Safety Implantable Status Assigning Authority Unknown Unknown [id number] Unknown 07/30/27 Unknown Unknown Active Unknown Procedure Provider Procedure Date Device Type Site Repair Hernia Ventral Open Gavino Dunlap MD 02/22/23 Unk nown Abdomen Device Identifier Serial Number Lot or Batch Number Manufacturing Date Expiration Date Distinct Identification Code MRI Safety Implantable Status Assigning Authority Unknown Unknown [id number] Unknown 08/30/24 Unknown Unknown Active Unknown Patient Care team information Care Team Personnel Name: Beni Doshi RN Position: [facility] RN Member Role: Primary Care Nurse Name: Ronald Heath RN Position: S RN Member Role: Primary Care Nurse Name: Kevyn Mckeon MD Position: [facility] Physician - Primary Care Member Role: PCP Address: Address: [address] [place] [id number] Name: Melissa Chau RN Position: [facility] RN Member Role: Primary Care Nurse Name: Gemini Alfaro Position: [facility] Cover Remover Member Role: Sustainable Agriculture Specialist Name: Marifer Thomas RN Position: [facility] RN Member Role: Primary Care Nurse Name: Ana Lopes RN Position: [facility] RN Member Role: Primary Care Nurse Care Team Related Persons Name: CATY LOCKWOOD Name: MARYCRUZ MANN Name: MARYCRUZ TORRES Name: NO, NONE Name: DAVID KRAFT Address: home [address] [place] [id number]
--- OUTSIDE RECORDS SUMMARY | 2023-03-13 14:26 | XMS_ITS | Continuity of Care Document ---
Author Name Unknown Organization [facility] Bryson lt Address [address] [place] [address]- Care Team Providers Care Brine Well Operator Name Role Phone Mike HEATH, Kevyn Gaytan Primary Care Physician [phone] Encounter [facility] Date(s): 07/26/22 - 08/25/22 [facility] Adult [address] [place] [address]- Allergies, Adverse Reactions, Alerts Substance Reaction Severity Status sulfa drugs Active Flonase Active ZyrTEC rash Active Percocet 5/325 Active Demerol HCl Active Immunizations Given and Recorded Vaccine Date Status Refusal Reason pneumococcal 23-valent vaccine 1 07/06/22 Given pneumococcal 23-valent vaccine 2 07/03/00 Recorded Influenza Virus Vaccine (oldterm) 3 04/06/22 Recor ded Influenza Virus Vaccine (oldterm) 03/02/20 Recorde d [id number] 12y+ bivalent booster vax 4 04/06/22 Recorded [id number] 12y+ bivalent booster vax 5 04/06/22 Recorded [...] tetanus/diphtheria/pertussis, acel(Tdap) 8 07/03/08 Recorded 1Result Comment: [id number] 2Location History: Dr. Lao 3Result Comment: Nida DUPLICATE 4Result Comment: Nida 5Result Comment: DUPLICATE 6Result Comment: NIDA 7Result Comment: [facility] [id number] 8Location History: Dr. Lao Medications amLODIPine 10 mg oral tablet 10 mg, 1, tablet, By Mouth, Daily, Increase in dose, # 90 tablet, Refills 3, Tot. Refills 3, Maintenance, 04/27/22 13:48:00 EDT, Route to Pharmacy Electronically, [facility] #[id number], Partialfill upon patient request if the prescription is fo... Start Date: 04/27/22 Status: Ordered duloxetine 30 mg oral enteric coated capsule 1 capsule = 30 mg, By Mouth, 2 times a day, Increase in dose, # 180 capsule, 3 Refills, Maintenance, 04/27/22 13:42:00 EDT, [facility] #[id number], Partial fill upon patient request if the [...] 11/15/22 6:26:00 EDT, Route to Pharmacy Electronically, [facility] #[id number], Partial fill upon patient request if the prescriptio... Start Date: 11/15/22 Stop Date: 11/16/22 Status: Ordered ibuprofen 800 mg oral tablet 800 mg, 1, tablet, By Mouth, 2 times a day, # 270 tablet, Refills 1, Tot. Refills 1, Acute :26:00 EDT, 11/15/21 6:26:00 EDT, Route to Pharmacy Electronically, [facility] #[id number], Partial fill upon patient request if the prescription... Start Date: 11/15/21 Stop Date: 11/15/22 Status: Ordered lisinopril 20 mg oral tablet See Instructions, TAKE 1 TABLET DAILY, # 90 tablet, Refills 3, Tot. Refills 3, 11/15/21 6:27:00 EDT, Instructions Replace Required Details, [id number], 170, cm, 10/25/21 16:19:00 EDT, Height Start Date: 11/15/21 Status: Ordered LORazepam 1 mg oral tablet 1 tablet = 1 mg, By Mouth, 2 times a day, PRN as needed for anxiety, # 60 tablet, 2 Refills, Maintenance, 07/28/22 14:24:00 EST, Tablet, [facility] #[id number], 170, cm, 07/06/22 13:11:00 EST, Height Start [...] Sore throat Confirmed Active Underweight Confirmed Active 52771 CTA: IMPRESSION: 1. 70% stenosis of the [...] Team Personnel Name: Kevyn Mckeon MD Position: [facility] Primary Care Physician Member Role: PCP Address: Address: [address] [place] [address]- Care Team Related Persons Name: MARYCRUZ MANN Name: NO, NONE Name: DAVID KRAFT Address: home [address] [facility] [address] [address] [place] [address]
--- OUTSIDE RECORDS SUMMARY | 2023-03-13 14:26 | XMS_ITS | Continuity of Care Document ---
Author Name Unknown Organization [facility] Bryson lt Address [address] [place] [address]- Care Team Providers Care Corner Former Name Role Phone Mike HEATH, Kevyn Gaytan Primary Care Physician Encounter [facility] [place] Date(s): 10/15/21 - 11/14/21 [facility] Adult [address] [place] [address]- Allergies, Adverse Reactions, Alerts Substance Reaction Severity [...] vaccine 3 07/03/00 Recorded 1Result Comment: [facility] [id number] 2Location History: Dr. Lao 3Location History: Dr. Lao Medications 4 wheeled walked with seat and brake 4 wheeled walked with seat and brake, See Instructions, # 1 each, Refills 0, Tot. Refills 0, Maintenance, DX:M81.0 4 wheeled walker with seat and brakes, HIPOLITO lifetime 99MOS [facility], 01/07/21 10:52:00 EDT, Supply [...] 0 Refills, Maintenance, 09/24/21 11:47:00 EDT, Film, [facility] #[id number], Partial fill upon patient request if the [...] and foot rests, HIPOLITO 99MOS send to [facility], 04/12/21 16:40:00 E... Start Date: [...]
--- OUTSIDE RECORDS SUMMARY | 2023-03-13 14:26 | XMS_ITS | Patient Health Record ---
Author Name Unknown Organization [facility] Address [address] [place] [address] Care Team Providers Care Equipment Cleaner Name Role Phone Kevyn Mckeon Primary Care Provider Jagjit Redding Jr Unavailable ALLERGIES Allergen (clinical drug ingredient) Drug/Non Drug Allergy documented on EMR Reaction Allergy Type Onset Date Status Sulfa Unknown Drug Allergy Active bacitracin Antibiotic Unknown Drug Allergy Activ e RESULTS Component Value Reference Range Notes Pathology Reviewed date:08/05/2022 01:56:26 PM Interpretation: Performing Lab:[facility], [address] [place] [id number] Notes/Report: REASON FOR REFERRAL No Information MEDICATIONS Medication SIG (Take, Route, Frequency, Duration) Notes Start Date End Date Status Lisinopril 20 MG 5 ml Orally Once a day Active DULoxetine HCl 30 MG 1 capsule Orally On ce a day for 30 day(s) Active Esomeprazole Magnesium 40 MG 1 capsule Orally Once a day for 30 day(s) 06/30/2022 Active Magnesium Oxide 400 MG 1 tablet as neede d Orally Once a day for 30 day(s) Active ZyrTEC Allergy 10 MG 2 tablets Orally as needed for allergies Active Ibuprofen 800 MG 1 tablet with food o r milk as needed Orally every 8 hrs Active PARoxetine HCl 20mg Not-Taking Probiotic & Acidophilus Ex St - as directed Orally Active Nabumetone 500mg Not -Taking Sertraline HCl 50 MG 1 tablet Orally twi day Active Loperamide HCl 2mg 1 capsule as needed Orally prn Active Loperamide HCl 2 MG 1 capsule as needed Orally Four times a day Active Dicyclomine HCl 10 MG 2 capsules Orally three times a day Active amLODIPine Besylate 10 MG 1 tablet Orall y Once a day Active LORazepam 1mg 1 tablet as needed Orally BID Active IMMUNIZATIONS Vaccine Route Administration Date Status Comme nts Influenza Unknown 03/03/2018 Administered Influenza Unknown 03/03/2020 Administered Influenza Unknown 04/06/2022 Administered SOCIAL HISTORY Tobacco Use: Social History Observation Description Date Details (start date - stop date) Current Smoker NA - NA Sex Assigned At : Social History Observation Description Sex Assigned At Unknown Tobacco Use/Smoking Question Answer Notes Patient is a current smoker How often do you smoke cigarettes? every day How many cigarettes a day do you smoke? 6-10 How soon after you wake up d o you smoke your first cigarette? 6-30 minutes Are you interested in quitting? Thinking about q uitting Alcohol Screen Question Answer Notes Did you have a drink contain ing alcohol in the past year? Yes How often did you have a dri nk containing alcohol in the past year? 4 or more times a week (4 points) How many drinks did you have on a typical day when you were drinking in the past year? 1 or 2 drinks (0 point) How often did you have 6 or more drinks on one occasion in the past year? 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) Active confirmed 918098303 Problem Irritable bowel syndrome with diarrhea (K58.0) Active confirmed 108838060 Problem Erosive esophagitis (K22.10) Active confirmed Erosive esophagitis (29342057) Problem 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 Oliveira esophagus (937563409) Problem Abnormal barium swallow (R93.3) Active confirmed 649551498 Problem Non-intractable vomiting without nausea, unspecified vomiting type (R11.11) Active confirmed 099957265 Problem Clostridioides difficile infection (A49.8) Active confirmed 912951690 Problem Anal lesion (K62.9) Active confirmed 08550252 Encounters Encounter Location Date Provider Diagnosis [facility] [place] Outpatient [address] [place] [id number] 08/03/2022 Jagjit Crawford Jr Oliveira esophagus K22.70 and Erosive esophagitis K22.10 [facility] [address] [place] [phone] 06/15/2022 Jagjit Crawford Jr [facility] [address] [place] [id number] 07/13/2022 Jagjit Crawford Jr 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 K22.70 and Clostridioides difficile infection A49.8 [facility] [address] [place] [phone] 02/01/2023 Jagjit Crawford Jr [facility] [address] [place] [phone] 12/21/2022 Jagjit Crawford Jr [facility] [address] [place] [phone] 06/13/2022 Jagjit Crawford Jr [facility] [address] [place] [phone] 06/14/2022 Jagjit Crawford Jr [facility] [address] [place] [phone] 06/28/2022 Jagjit Crawford Jr [facility] [address] [place] [phone] 06/30/2022 Jagjit Crawford Jr 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 K22.70 [facility] [address] [place] [phone] 08/05/2022 Jagjit Crawford Jr [facility] [address] [place] [phone] 10/03/2022 Jagjit Crawford Jr [facility] [address] [place] [phone] 11/30/2022 Jagjit Crawford Jr [facility] [address] [place] [phone] 01/19/2023 Jagjit Crawford Jr ASSESSMENTS Encounter Date Diagnosis Assessment Notes Treatment Notes Treatment Clinical Notes 08/03/2022 Erosive esophagitis (ICD-10 - K22.10) 08/03/2022 Oliveira esophagus (ICD-10 - K22.70) 07/13/2022 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 (ICD-10 - K22.70) 07/13/2022 Clostridioides difficile infection (ICD-10 - A49.8) 06/30/2022 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 (ICD-10 - K22.70) PLAN OF TREATMENT Future Test Test Name Order Date UPPER GI ENDOSCOPY 12/17/2014 COLONOSCOPY 12/17/2014 UPPER GI ENDOSCOPY 04/27/2017 UPPER GI ENDOSCOPY 07/13/2022 Insurance Providers Payer Name Payer Address Payer Phone Subscriber Number Group Number Insured Name Patient Relationship to Insured Coverage Start Date Coverage End Date [address] [place] [phone] [id number] ANAND KRAFT Self - patient is the insured MEDICAL (GENERAL) HISTORY Medical History History ICD Code irritable bowel syndrome Oliveira's esophagus, last upper endoscop y 2016, followup 3-5 years hypertension peripheral arterial disease gait disorder hyperlipidemia COPD colonoscopy 08/2015. Followup in 08/2025 arthritis neuropathy C. difficile infection 06/23 Surgical History Surgery Date(Month/Year) hand surgery D&C foot surgery x2 hammer toe bunionectomy right hand arthritis 05/2019 teeth spinal surgery 03/23 Hospitalization History Reason Date(Month/Year) c diff 06/23
--- OUTSIDE RECORDS SUMMARY | 2023-03-13 14:26 | XMS_ITS | Continuity of Care Document ---
Author Name Unknown Organization [facility] Address [address] [place] [address]- Care Team Providers Care Evening Sitter Name Role Phone Mike HEATH, Kevyn Gaytan Primary Care Physician [phone] Encounter [facility] [place] Date(s): 03/24/21 - 04/23/21 [facility] Adult [address] [place] [address]- Allergies, Adverse Reactions, Alerts Substance Reaction Severity [...] 23-valent vaccine 3 07/03/00 Recorded 1Result Comment: [facility] [id number] 2Location History: Dr. Lao 3Location History: Dr. [...] mL, 2 Refills, Maintenance, 11/23/20 16:34:00 EDT, [place], [facility] #[id number], Partial fill upon patient request if the prescription is for a schedule II opioid drug., 2 sprays Nares, B... Start Date: 11/23/20 Status: Ordered dicyclomine 10 mg oral capsule 2 capsule = 20 mg, By Mouth, 3 times a day, # 180 capsule, 5 Refills, Maintenance, 07/06/20 17:01:00 EST, [facility] #[id number], 170, cm, 05/11/20 13:39:00 EST, Height Start Date: 07/06/20 Status: Ordered ibuprofen 800 mg oral tablet 800 mg, 1, tablet, By Mouth, 2 times a day, # 270 tablet, Refills 1, Tot. Refills 1, Acute 05/19/2117:45:00 EST, 11/16/20 17:32:00 EDT, Route to Pharmacy Electronically, [facility] #[id number],Partial fill upon patient request if the prescripti... Start Date: 11/16/20 Stop Date: 05/19/21 Status: Ordered lidocaine 5% topical film 1 patch, Topically, Daily, PRN Pain , Mild, remove after 12 hours, # 5 patch, 0 Refills, Maintenance, 01/18/21 13:10:00 EDT, [place], [facility] #[id number], Partial fill upon patient request if the [...] ml) bottles pre-mixed. Please call pt for leaf size picker., Compound Start Date: 04/16/19 Status: Ordered Redi-Cat-(2) two pre-mixed 450 ml bottles Redi-Cat-(2) two pre-mixed 450 ml bottles, See Instructions, # 2 bottle, Refills 0, Tot. Refills 0,Maintenance, Follow instructions included per PCP office., 04/16/19 15:40:53 EDT, 2 (450 ml) bottles pre-mixed. Please call pt for leaf size picker., Compound Start Date: 04/16/19 Status: Ordered [...] and foot rests, HIPOLITO 99MOS send to [facility], 04/12/21 16:40:00 E... Start Date: [...]
--- OUTSIDE RECORDS SUMMARY | 2023-03-13 14:26 | XMS_ITS | Continuity of Care Document ---
Author Name Unknown Organization [facility] Address [address] [place] [address]- Care Team Providers Care Head Scorer Name Role Phone Mike HEATH, Kevyn Gaytan Primary Care Physician [phone] [place] [facility] [place]21 [place] 07/09/21 [facility] Adult [address] [place] [address]- Attending Physician: Admtr, [id number] Admitting Physician: AdmtrNessa Referring Physician: Admtr, [id number] [...] vaccine 3 07/03/00 Recorded 1Result Comment: [facility] [id number] 2Location History: Dr. Lao 3Location History: Dr. [...] tablet, 3 Refills, Maintenance, 02/23/21 11:22:00 EDT, [facility], 170, cm, 02/01/21 12:54:00 EDT, Height Start Date: 02/23/21 Status: Ordered fentanyl 12 mcg/hr transdermal film, extended release 1 patch, Topically, Every 72 hours, # 10 film, 0 Refills, Maintenance, 05/10/21 14:43:00 EST, Patch, [facility][id number], Partial fill upon patient request if the prescription is for a schedule II opioid drug., 170, cm, 05/03/21 13:38:00 EDT,... Start Date: 05/10/21 Status: Ordered lisinopril 20 mg oral tablet See Instructions, TAKE 1 TABLET DAILY, # 90 Unknown, Refills 0, Maintenance, Instructions Replace Required Details, Route to Pharmacy Electronically, [facility], 170, cm, 12/10/20 13:41:00 EDT, Height Start Date: 01/26/21 Status: Ordered LORazepam 1 mg oral tablet 1 tablet = 1 mg, By Mouth, 2 times a day, PRN as needed for anxiety, # 180 tablet, 1 Refills, Maintenance, 05/19/21 6:54:00 EST, Tablet, [facility], 170, cm, 05/03/21 13:38:00 EDT, [...] and foot rests, HIPOLITO 99MOS send to [facility], 04/12/21 16:40:00 E... Start Date: [...]
--- OUTSIDE RECORDS SUMMARY | 2023-03-13 14:26 | XMS_ITS | Continuity of Care Document ---
Author Name Unknown Organization [facility] Address [address] [place] [address]- Care Team Providers Care Central Communications Specialist Name Role Phone Mike HEATH, Kevyn Gaytan Primary Care Physician [phone] [place] [facility] [place] 09[place]13[place]22 [place] 10[place]13/22 [facility] Adult [address] [place] [address]- Allergies, Adverse Reactions, Alerts Substance Reaction Severity Status sulfa drugs Active Flonase Active Demerol HCl Active Percocet 5/325 Active ZyrTEC rash Active Immunizations Given and Recorded Vaccine Date Status Refusal Reason pneumococcal 23-valent vaccine 1 07/06/22 Given pneumococcal 23-valent vaccine 2 07/03/00 Recorded Influenza Virus Vaccine (oldterm) 3 04/06/22 Recor ded Influenza Virus Vaccine (oldterm) 03/02/20 Recorde d [id number] 12y+ bivalent booster vax 4 04/06/22 Recorded [id number] 12y+ bivalent booster vax 5 04/06/22 Recorded [...] tetanus/diphtheria/pertussis, acel(Tdap) 8 07/03/08 Recorded 1Result Comment: [id number] 2Location History: Dr. Lao 3Result Comment: [facility] 4Result Comment: Nida 5Result Comment: DUPLICATE 6Result Comment: DEMETRIAS 7Result Comment: [facility] [id number] 8Location History: Dr. Lao Medications amLODIPine 10 mg oral tablet 10 mg, 1, tablet, By Mouth, Daily, Increase in dose, # 90 tablet, Refills 3, Tot. Refills 3, Maintenance, 04/27/22 13:48:00 EDT, Route to Pharmacy Electronically, [email or web address] #[id number], Partialfill upon patient request if the prescription is fo... Start Date: 04/27/22 Status: Ordered dicyclomine 10 mg oral capsule 1 capsule = 10 mg, By Mouth, 4 times a day, # 56 capsule, 3 Refills, Maintenance, 09/29/22 6:39:00 EDT, Capsule, [email or web address] #[id number], Partial fill upon patient request if the prescription is for a schedule II opioid drug., 170, cm, 09/07/22 11... Start Date: 09/29/22 Stop Date: 11/24/22 Status: Ordered duloxetine 30 mg oral enteric coated capsule 1 capsule = 30 mg, By Mouth, 2 times a day, Increase in dose, # 180 capsule, 3 Refills, Maintenance, 04/27/22 13:42:00 EDT, [email or web address] #[id number], Partial fill upon patient request if the [...] 11/15/22 6:26:00 EDT, Route to Pharmacy Electronically, [email or web address] #[id number], Partial fill upon patient request if the prescriptio... Start Date: 11/15/22 Stop Date: 11/16/22 Status: Ordered ibuprofen 800 mg oral tablet 800 mg, 1, tablet, By Mouth, 2 times a day, # 270 tablet, Refills 1, Tot. Refills 1, Acute 236:26:00 EDT, 11/15/21 6:26:00 EDT, Route to Pharmacy Electronically, [email or web address] #[id number], Partial fill upon patient request if the prescription... Start Date: 11/15/21 Stop Date: 11/15/22 Status: Ordered lisinopril 20 mg oral tablet See Instructions, TAKE 1 TABLET DAILY, # 90 tablet, Refills 3, Tot. Refills 3, 11/15/21 6:27:00 EDT, Instructions Replace Required Details, Route to Pharmacy Electronically, [email or web address] #[id number], 170, cm, 10/25/21 16:19:00 EDT, Height Start Date: 11/15/21 Status: Ordered LORazepam 1 mg oral tablet 1 tablet = 1 mg, By Mouth, 2 times a day, PRN as needed for anxiety, # 60 tablet, 2 Refills, Maintenance, 07/28/22 14:24:00 EST, Tablet, [email or web address] #[id number], 170, cm, 07/06/22 13:11:00 EST, Height Start [...] Maintenance, 09/22/22 5:18:00 EDT, [email or web address]), 170, cm, 09/07/22 11:31:00 EST, [...] claudication 1 Confirmed Active Underweight Confirmed Active 44391 CTA: IMPRESSION: 1. 70% stenosis of the [...] Care Physician Member Role: PCP Address: Address: [address] [place] [address]- Care Team Related Persons Name: MARYCRUZ MANN Name: NO, NONE Name: DAVID KRAFT Address: home [address] [facility] [place] [id number]
[2023-03-13 14:53] VITALS: BP 122/64; PULSE 68; TEMP 36.6; O2SAT 97; BMI 17.1
--- NOTE | 2023-03-13 14:53 | AM.OFFWIN_ITS ---
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 Intake Note: pt is here for rash on lower abd Patient Tobacco Use Status: Current everyday Tobacco user Allergies Sulfa (Sulfonamide Antibiotics) [SULFA (SULFONAMIDE ANTIBIOTICS)] Allergy (Intermediate, Verified 03/13/23 15:33) ITCHING/RASH sulfadiazine Allergy (Unknown, Verified 03/13/23 15:33) Unknown tree nut [TREE NUT] Adverse Reaction (Intermediate, Verified 03/13/23 15:33) GI UPSET acetaminophen [From PERCOCET] Adverse Reaction (Unknown, Verified 03/13/23 15:33) NAUSEA meperidine [From Demerol] Adverse Reaction (Unknown, Verified 03/13/23 15:33) Nausea oxycodone [Percocet] Adverse Reaction (Unknown, Verified 03/13/23 15:33) Nausea Flonase Allergy (Unknown, Uncoded 03/13/23 15:33) Unknown ZyrTEC Allergy (Unknown, Uncoded 03/13/23 15:33) Unknown Medication List - Last Reconciled 03/13/23 by Narinder Argueta MD amlodipine 1 tab PO DAILY duloxetine 1 cap PO BID famotidine (Pepcid) 20 mg PO BID fidaxomicin (Dificid) 200 mg PO Q12H hydroxyzine HCl 25 mg PO QID ibuprofen 800 mg PO BID lisinopril 20 mg PO DAILY lorazepam 1 mg PO BID magnesium oxide 400 mg PO DAILY sertraline 1 tab PO BID vancomycin 1 cap PO Q6H Do you need a note to return to daycare/school/sports/work: No 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 HPI Details 72-year-old female presents to the [facility] for a sick visit. Patient has bilateral inguinal hernia repair done in the preceding month. She has been on out resolved on for the past 10 years. Due to no availability, her primary care provider has switched her to hydroxyzine. Five days after she has started taking the medication she has developed a rash all over her torso. Patient is distressed over it. [facility] Medical History Chronic pain syndrome Severe major depression Postlaminectomy syndrome Thrombosed hemorrhoids Hypertension Anxiety Surgical History History of bunionectomy History of hammer toe correction History of foot surgery History of D&C History of hand surgery Family History Father Hypertension Heart disease Mother History of lumpectomy Social History Household Members: None [facility]: [facility] Do you presently have visiting nurse or other home services: No Alcohol intake: current Alcohol intake frequency: does not drink Alcohol type: wine Patient Tobacco Use Status: Current everyday Tobacco user Tobacco use type: Cigarette Cigarettes Per Day: 8 e-Cigarette/Vaping Use: Currently Using Second Hand Smoke Exposure: No service: No Current occupational status: retired Physical Exam Vital Signs: Last Vital Signs Temp 97.8 F 03/13/23 14:53 Pulse 68 03/13/23 14:53 BP 122/64 03/13/23 14:53 Pulse Ox 97 03/13/23 14:53 BMI result Body Mass Index 17.1 Const General: cooperative and healthy appearing Nutritional Appearance: well nourished Orientation/consciousness: patient oriented x3 Limitations: no limitations HEENT Head: Yes normal to inspection Eyes General: appearance normal, both eyes and all related structures Neck Neck: Yes normal visual inspection Chest Chest palpation & inspection: normal palpation of entire chest wall Resp Effort & Inspection: normal respiratory effort Skin Other: Macular papular rash over her abdomen and torso and lower back.. No vesicles or pustules seen. Neuro General: patient oriented x3 Assessment & Plan Assessment & Plan (1) Rash: Code(s): R21 - Rash and other nonspecific skin eruption Plan: Most likely the rash is allergic in origin. It could be either due to the new medication or an allergy to unknown substance. Patient refuses to take any medication for allergy. I offered her prednisone, hydroxyzine and she would not consider those medications. Finally she agreed on on taking Benadryl. I advised her to follow-up with the primary care provider. Coding Level of Care Code Est Pt Level 3 (04323) Diagnoses Rash R21
== END 2023-03-13 15:53 | disposition home or self-care (01) ==
PROVIDERS: PCP Family Medicine; Visit Provider Internal Medicine
DX: R21 Rash and other nonspecific skin eruption (principal)
CPT/HCPCS: 99213

== ENCOUNTER 2023-06-20 15:13 | Outpatient (AMB) | payer MEDICARE, SELFPAY ==
--- OUTSIDE RECORDS SUMMARY | 2023-06-20 15:14 | XMS_ITS | Continuity of Care Document ---
Author Name Unknown Organization [facility] Andrea Bryson lt Address [address] [place] [address]- Care Team Providers Care Inventory Auditor Name Role Phone Mike HEATH, Kevyn Gaytan Primary Care Physician [phone] Encounter [facility] [place] [facility] [place] [id number] Date(s): 02/21/23 - 03/23/23 [facility] Adult [address] [place] [address]- Allergies, Adverse Reactions, Alerts Substance Reaction Severity [...] Given pneumococcal 23-valent vaccine 2 07/03/00 Recorded [id number] 12y+ bivalent booster vax 3 04/06/22 Recorded [...] tetanus/diphtheria/pertussis, acel(Tdap) 6 07/03/08 Recorded 1Result Comment: [id number] 2Location History: Dr. Lao 3Result Comment: Nida 4Result Comment: NIDA 5Result Comment: [facility] [id number] 6Location History: Dr. Lao Medications acetaminophen 500 [...] 04/27/22 13:48:00 EDT, Route to Pharmacy Electronically, [facility] #[id number], Partialfill upon patient request if the prescription [...] 5 Refills, Maintenance, 10/19/22 13:40:00 EDT, Tablet, [facility] #[id number], Partial fill upon patient request if the prescription is for a schedule II opioid... Start Date: 10/19/22 Stop Date: 01/11/23 Status: Ordered duloxetine 30 mg oral enteric coated capsule 1 capsule = 30 mg, By Mouth, 2 times a day, Increase in dose, # 180 capsule, 3 Refills, Maintenance, 04/27/22 13:42:00 EDT, [facility] #[id number], Partial fill upon patient request if the [...] 02/24/23 16:21:00 EDT, Route to Pharmacy Electronically, [facility] #[id number], Partial fill upon patient request if the prescription is for a schedule II opi... Start Date: 02/24/23 Stop Date: 03/03/23 Status: Ordered hydrOXYzine hydrochloride 25 mg oral tablet 1 tablet = 25 mg, By Mouth, 4 times a day, PRN for anxiety, # 40 tablet, 1 Refills, Acute 04/30/23 10:49:00 EDT, 02/28/23 10:49:00 EDT, Tablet, [facility] #[id number], Partial fill upon patient request if the [...] 01/26/23 12:33:00 EDT, Route to Pharmacy Electronically, [facility] #[id number], 165, cm, 07/12/23 11:25:00 EDT, Height Start Date: 01/26/23 Stop Date: 01/21/24 Status: Ordered sertraline 50 mg oral tablet 1 tablet, By Mouth, 2 times a day, # 180 tablet, 3 Refills, Maintenance, 03/17/23 10:16:00 EDT, [facility] #[id number], 165, cm, 03/08/23 11:21:00 EDT, Height, 43.1, kg, 02/22/23 9:53:00 EDT, Dry Weight Start Date: 03/17/23 Status: Ordered Problem List Condition Confirmation Course [...] claudication 1 Confirmed Active Underweight Confirmed Active 24624 CTA: IMPRESSION: 1. 70% stenosis of the [...] Safety Implantable Status Assigning Authority Unknown Unknown [id number] Unknown 11/27/26 Unknown Unknown Active Unknown Procedure Provider Procedure Date Device Type Site Repair Hernia Inguinal Open Gavino Dunlap MD 02/22/23 Un known Abdomen Device Identifier Serial Number Lot or Batch Number Manufacturing Date Expiration Date Distinct Identification Code MRI Safety Implantable Status Assigning Authority Unknown Unknown [id number] Unknown 07/30/27 Unknown Unknown Active Unknown Procedure Provider Procedure Date Device Type Site Repair Hernia Ventral Open Gavino Dunlap MD 02/22/23 Unk nown Abdomen Device Identifier Serial Number Lot or Batch Number Manufacturing Date Expiration Date Distinct Identification Code MRI Safety Implantable Status Assigning Authority Unknown Unknown [id number] Unknown 08/30/24 Unknown Unknown Active Unknown Patient Care team information Care Team Personnel Name: Beni Doshi RN Position: [facility] RN Member Role: Primary Care Nurse Name: Ronald Heath RN Position: [facility] RN Member Role: Primary Care Nurse Name: Kevyn Mckeon MD Position: [facility] Physician - Primary Care Member Role: PCP Address: Address: [address] [place] [id number] Name: Melissa Chau RN Position: [facility] RN Member Role: Primary Care Nurse Name: Gemini Alfaro Position: [facility] Greenhouse Laborer Member Role: Sail Cutter Name: Marifer Thomas RN Position: [facility] RN Member Role: Primary Care Nurse Name: Ana Lopes RN Position: [facility] RN Member Role: Primary Care Nurse Care Team Related Persons Name: CATY LOCKWOOD Name: MARYCRUZ MANN Name: MARYCRUZ TORRES Name: NO, NONE Name: DAVID KRAFT Address: [address] [address]
--- OUTSIDE RECORDS SUMMARY | 2023-06-20 15:15 | XMS_ITS | Continuity of Care Document ---
Author Name Unknown Organization [facility] Andrea Bryson lt Address [address] [place] [address]- Care Team Providers Care Comfort Filler Name Role Phone Mike HEATH, Kevyn Gaytan Primary Care Physician Encounter [facility] [place] Date(s): 04/17/23 - 05/17/23 [facility] Adult [address] [place] [address]- Allergies, Adverse Reactions, Alerts Substance Reaction Severity Status predniSONE makes you jumpy Active Augmentin ? caused c diff Active Demerol HCl sick to stomach Active Nuts tree nuts - upset stomach Ac tive Pollen Active Percocet sick to stomach Active ZyrTEC rash Active sulfa drugs itchy, red Active Adhesive Bandage use paper tape thin skin bandages cause tears in skin Active Flonase vomiting Active Immunizations Given and Recorded Vaccine Date Status Refusal Reason influenza virus vaccine, inactivated 05/07/23 Jerry rded influenza virus vaccine, inactivated 1 04/06/22 Re corded influenza virus vaccine, inactivated 03/28/21 Jerry rded influenza virus vaccine, inactivated 04/10/19 Jerry rded SARS-CoV-2(COVID-19)mRNA-LNP vac([id number]) 05/07/23 Recorded pneumococcal 23-valent vaccine 2 07/06/22 Given pneumococcal 23-valent vaccine 3 07/03/00 Recorded [id number] 12y+ bivalent booster vax 4 04/06/22 Recorded SARS-CoV-2 (COVID-19) mRNA BNT-162b2 vac 07/14/21 Recorded SARS-CoV-2 (COVID-19) mRNA BNT-162b2 vac 11/04/20 Recorded SARS-CoV-2 (COVID-19) mRNA BNT-162b2 vac 10/14/20 Recorded tetanus-diphtheria toxoids (Td) 5 12/10/20 Given Influenza Virus Vaccine (oldterm) 03/02/20 Recorde d pneumococcal 13-valent vaccine 06/07/16 Recorded tetanus/diphtheria/pertussis, acel(Tdap) 6 07/03/08 Recorded 1Result Comment: NIDA 2Result Comment: [id number] 3Location History: Dr. Lao 4Result Comment: Nida 5Result Comment: [facility] [id number] 6Location History: Dr. Lao Medications acetaminophen 500 mg oral tablet 1 tablet = 500 mg, By Mouth, 2 times a day, 0 Refills, Maintenance, 02/01/23 16:02:00 EDT, Partial fill upon patient request if the prescription is for a schedule II opioid drug. Start Date: 02/01/23 Status: Ordered amLODIPine 10 mg oral tablet 10 mg, 1, tablet, By Mouth, Daily, # 90 tablet, Refills 3, Tot. Refills 3, Maintenance, 03/24/23 17:19:00 EDT, Route to Pharmacy Electronically, [facility] #[id number], Partial fill upon patientrequest if the prescription is for a schedule II op... Start Date: 03/24/23 Status: Ordered dicyclomine 20 mg oral tablet 1 tablet = 20 mg, By Mouth, 4 times a day, PRN spasm, # 120 tablet, 5 Refills, Maintenance, 04/18/23 11:26:00 EDT, Tablet, [facility] #[id number], Partial fill upon patient request if the prescription is for a schedule II opioid drug., 165, cm, 1... Start Date: 04/18/23 Stop Date: 10/15/23 Status: Ordered Esomeprazole 40 mg, Daily at supper, Refills 0, Maintenance, 07/06/22 13:18:00 EST, Partial fill upon patient request if the prescription is for a schedule II opioid drug. Start Date: 07/06/22 Status: Ordered Folic Acid Daily, 0 Refills, Maintenance, 05/01/23 14:14:00 EDT, Partial fill upon patient request if the prescription is for a schedule II opioid drug. Start Date: 05/01/23 Status: Ordered Ibuprofen 800 mg, 3 times [...] 01/26/23 12:33:00 EDT, Route to Pharmacy Electronically, [facility] #[id number], 165, cm, 01/11/23 11:25:00 EDT, Height Start Date: 01/26/23 Stop Date: 01/21/24 Status: Ordered Misc Rx Refills 0, Maintenance, iron, 05/01/23 14:13:00 EDT, Supply Start Date: 05/01/23 Status: Ordered sertraline 50 mg oral tablet 1 tablet, By Mouth, 2 times a day, # 180 tablet, 3 Refills, Maintenance, 03/17/23 10:16:00 EDT, [facility] #[id number], 165, cm, 03/08/23 11:21:00 EDT, Height, 43.1, kg, 02/22/23 9:53:00 EDT, Dry Weight Start Date: 03/17/23 Status: Ordered triamcinolone 0.1% topical cream 454 Gm, 0 Refill(s), APPLY 2X DAY TO ITCHY RASH UP TO 2 WEEKS ON 1 WEEK OFF CAN REPEAT AFTER 1 WEEKOFF CAN DAILY/CAPSULE WHEN IMPROVED USE 2X DAY ONLY FOR 1 WEEK IN FOLD AREA, 0 Refills, 04/12/23 14:44:00 EDT, Partial fill upon patient request if the... Start Date: 04/12/23 Status: Ordered Vitamin B12 0 Refills, Maintenance, 05/01/23 14:13:00 EDT, Partial fill upon patient request if the prescription is for a schedule II opioid drug. Start Date: 05/01/23 Status: Ordered Problem List Condition Confirmation Course [...] claudication 1 Confirmed Active Underweight Confirmed Active 46578 CTA: IMPRESSION: 1. 70% stenosis of the [...] Safety Implantable Status Assigning Authority Unknown Unknown [id number] Unknown 11/27/26 Unknown Unknown Active Unknown Procedure Provider Procedure Date Device Type Site Repair Hernia Inguinal Open Gavino Dunlap MD 02/22/23 Un known Abdomen Device Identifier Serial Number Lot or Batch Number Manufacturing Date Expiration Date Distinct Identification Code MRI Safety Implantable Status Assigning Authority Unknown Unknown [id number] Unknown 07/30/27 Unknown Unknown Active Unknown Procedure Provider Procedure Date Device Type Site Repair Hernia Ventral Open Gavino Dunlap MD 02/22/23 Unk nown Abdomen Device Identifier Serial Number Lot or Batch Number Manufacturing Date Expiration Date Distinct Identification Code MRI Safety Implantable Status Assigning Authority Unknown Unknown [id number] Unknown 08/30/24 Unknown Unknown Active Unknown Patient Care team information Care Team Personnel Name: Beni Doshi RN Position: [facility] RN Member Role: Primary Care Nurse Name: Kevyn Mckeon MD Position: [facility] Physician - Primary Care Member Role: PCP Address: Address: [address] [place] [id number] Name: Melissa Chau RN Position: S RN Member Role: Primary Care Nurse Name: Gemini Alfaro Position: [facility] [place] Purchasing Administrative Assistant Member Role: Skidder Runner Name: Moses RN, Ana Ruiz Position: [facility] RN Member Role: Primary Care Nurse Care Team Related Persons Name: CATY LOCKWOOD Name: MARYCRUZ MANN Name: MARYCRUZ TORRES Name: NO, NONE Name: DAVID KRAFT Address: [address] [address]
--- OUTSIDE RECORDS SUMMARY | 2023-06-20 15:15 | XMS_ITS | Continuity of Care Document ---
Author Name Unknown Organization [facility] Address [address] [place] [address] [address] [place] [address]- Care Team Providers Care Power Tool Repair Technician Name Role Phone Kevyn Mckeon MD Primary Care Phys[id number] Date(s[facility]12[facility] - 04/19/[address] [place] [address]- Attending Physician: Sunny Goyal MD Referring Physician: Kevyn Mckeon MD Allergies, Adverse Reactions, Alerts Substance Reaction Severity Status predniSONE makes you jumpy Active Flonase vomiting Active Demerol HCl sick to stomach Active Nuts tree nuts - upset stomach Ac tive Pollen Active Percocet 5/325 sick to stomach Active ZyrTEC rash Active sulfa drugs itchy, red Active Adhesive Bandage use paper tape thin skin bandages cause tears in skin Active Augmentin ? caused c diff Active Immunizations Given and Recorded Vaccine Date Status Refusal Reason pneumococcal 23-valent vaccine 1 07/06/22 Given pneumococcal 23-valent vaccine 2 07/03/00 Recorded [id number] 12y+ bivalent booster vax 3 04/06/22 Recorded [...] tetanus/diphtheria/pertussis, acel(Tdap) 6 07/03/08 Recorded 1Result Comment: [id number] 2Location History: Dr. Lao 3Result Comment: Nida 4Result Comment: NIDA 5Result Comment: [facility] [id number] 6Location History: Dr. Lao Medications acetaminophen 500 [...] 03/24/23 17:19:00 EDT, Route to Pharmacy Electronically, [facility] #[id number], Partial fill upon patientrequest if the prescription is for a schedule II op... Start Date: 03/24/23 Status: Ordered Ativan 1 mg oral tablet [...] 5 Refills, Maintenance, 04/18/23 11:26:00 EDT, Tablet, [facility] #[id number], Partial fill upon patient request if the prescription is for a schedule II opioid drug., 165, cm, 1... Start Date: 04/18/23 Stop Date: 10/15/23 Status: Ordered duloxetine 30 mg oral enteric coated capsule 1 capsule, By Mouth, 2 times a day, # 180 capsule, 3 Refills, Maintenance, 04/20/23 4:15:00 EDT, [facility] #[id number], 165, cm, 04/17/23 12:07:00 EDT, Height, 43.1, kg, 02/22/23 9:53:00 EDT, Dry Weight Start Date: 04/20/23 Status: Ordered Esomeprazole 40 mg, Daily at supper, Refills 0, Maintenance, 07/06/22 13:18:00 EST, Partial fill upon patient request if the prescription is for a schedule II opioid drug. Start Date: 07/06/22 Status: Ordered gabapentin 100 mg oral capsule 100 mg, By Mouth, 3 times a day, # 21 capsule, Refills 0, Tot. Refills 0, Maintenance, 02/24/23 16:21:00 EDT, Route to Pharmacy Electronically, [facility] #[id number], Partial fill upon patient request if the prescription is for a schedule II opi... Start Date: 02/24/23 Stop Date: 03/03/23 Status: Ordered hydrOXYzine hydrochloride 25 mg oral tablet 1 tablet = 25 mg, By Mouth, 4 times a day, PRN for anxiety, # 40 tablet, 1 Refills, Acute 04/30/23 10:49:00 EDT, 02/28/23 10:49:00 EDT, Tablet, [facility] #[id number], Partial fill upon patient request if the [...] 01/26/23 12:33:00 EDT, Route to Pharmacy Electronically, [facility] #[id number], 165, cm, 01/11/23 11:25:00 EDT, Height Start Date: 01/26/23 Stop Date: 01/21/24 Status: Ordered sertraline 50 mg oral tablet 1 tablet, By Mouth, 2 times a day, # 180 tablet, 3 Refills, Maintenance, 03/17/23 10:16:00 EDT, [facility] #[id number], 165, cm, 03/08/23 11:21:00 EDT, Height, 43.1, [...] if the... Start Date: 04/12/23 Status: Ordered Problem List Condition Confirmation Course [...] claudication 1 Confirmed Active Underweight Confirmed Active 01496 CTA: IMPRESSION: 1. 70% stenosis of the [...] oldest [Reference Range]: 1 Height 165 cm (04/12/23 2:44 PM) Weight 44.8 kg (10/11/23 2:44 PM) Pulse Rate [55-90 bpm] 73 bpm (04/12/23 2:44 PM) Body Mass Index [18.5-24.99 kg/m2] 16.46 kg/m2 *L* (04/12/23 2:44 PM) Blood Pressure [90-138/55-84 mm Hg] 145/ 69mm Hg *H* (04/12/23 2:44 PM) Temperature [96.8-100.4 DegF] 96.5 DegF *L* (04/12/23 2:44 PM) Blood pressure sites Arm, left (04/12/23 2:44 PM) Temperature Route Temporal (04/12/23 2:44 PM) Social History Social History Type Response [...] Safety Implantable Status Assigning Authority Unknown Unknown [id number] Unknown 11/27/26 Unknown Unknown Active Unknown Procedure Provider Procedure Date Device Type Site Repair Hernia Inguinal Open Gavino Dunlap MD 02/22/23 Un known Abdomen Device Identifier Serial Number Lot or Batch Number Manufacturing Date Expiration Date Distinct Identification Code MRI Safety Implantable Status Assigning Authority Unknown Unknown [id number] Unknown 07/30/27 Unknown Unknown Active Unknown Procedure Provider Procedure Date Device Type Site Repair Hernia Ventral Open Gavino Dunlap MD 02/22/23 Unk nown Abdomen Device Identifier Serial Number Lot or Batch Number Manufacturing Date Expiration Date Distinct Identification Code MRI Safety Implantable Status Assigning Authority Unknown Unknown [id number] Unknown 08/30/24 Unknown Unknown Active Unknown Patient Care team information Care Team Personnel Name: Beni Doshi RN Position: S RN Member Role: Primary Care Nurse Name: Kevyn Mckeon MD Position: S Physician - Primary Care Member Role: PCP Address: Address: [address] [place] [id number] Name: Melissa Chau RN Position: [facility] RN Member Role: Primary Care Nurse Name: Gemini Alfaro Position: [facility] [place] Hvac Sales Engineer Member Role: Button Puncher Name: Marifer Thomas RN Position: [facility] RN Member Role: Primary Care Nurse Name: Ana Lopes RN Position: [facility] RN Member Role: Primary Care Nurse Care Team Related Persons Name: CATY LOCKWOOD Name: MARYCRUZ MANN Name: MARYCRUZ TORRES Name: NO, NONE Name: DAVID KRAFT Address: [address] [address]
--- OUTSIDE RECORDS SUMMARY | 2023-06-20 15:15 | XMS_ITS | Continuity of Care Document ---
Author Name Unknown Organization [facility] Andrea Bryson lt Address [address] [place] [address]- Care Team Providers Care Level Vial Sealer Name Role Phone Kevyn Mckeon MD Primary Care Physician Encounter [facility] [place] Date(s): 03/14/23 - 04/15/23 [facility] Adult [address] [place] [address]- Attending Physician: Neel Brand Referring Physician: Kevyn Mckeon MD Allergies, Adverse Reactions, Alerts Substance Reaction Severity Status predniSONE makes you jumpy Active sulfa drugs itchy, red Active Flonase vomiting Active Adhesive Bandage use paper tape thin skin bandages cause tears in skin Active ZyrTEC rash Active Augmentin ? caused c diff Active Demerol HCl sick to stomach Active Nuts tree nuts - upset stomach Ac tive Percocet 5/325 sick to stomach Active Pollen Active Immunizations Given and Recorded Vaccine Date Status Refusal Reason pneumococcal 23-valent vaccine 1 07/06/22 Given pneumococcal 23-valent vaccine 2 07/03/00 Recorded [id number] 12y+ bivalent booster vax 3 04/06/22 Recorded [...] tetanus/diphtheria/pertussis, acel(Tdap) 6 07/03/08 Recorded 1Result Comment: [id number] 2Location History: Dr. Lao 3Result Comment: Nida 4Result Comment: NIDA 5Result Comment: [facility] [id number] 6Location History: Dr. Lao Medications acetaminophen 500 [...] 03/24/23 17:19:00 EDT, Route to Pharmacy Electronically, [facility] #[id number], Partial fill upon patientrequest if the prescription [...] 5 Refills, Maintenance, 10/19/22 13:40:00 EDT, Tablet, [facility] #[id number], Partial fill upon patient request if the prescription is for a schedule II opioid... Start Date: 10/19/22 Stop Date: 01/11/23 Status: Ordered duloxetine 30 mg oral enteric coated capsule 1 capsule = 30 mg, By Mouth, 2 times a day, Increase in dose, # 180 capsule, 3 Refills, Maintenance, 04/27/22 13:42:00 EDT, [facility] #[id number], Partial fill upon patient request if the [...] 02/24/23 16:21:00 EDT, Route to Pharmacy Electronically, [facility] #[id number], Partial fill upon patient request if the prescription is for a schedule II opi... Start Date: 02/24/23 Stop Date: 03/03/23 Status: Ordered hydrOXYzine hydrochloride 25 mg oral tablet 1 tablet = 25 mg, By Mouth, 4 times a day, PRN for anxiety, # 40 tablet, 1 Refills, Acute 04/30/23 10:49:00 EDT, 02/28/23 10:49:00 EDT, Tablet, [facility] #[id number], Partial fill upon patient request if the [...] 01/26/23 12:33:00 EDT, Route to Pharmacy Electronically, [facility] #[id number], 165, cm, 01/11/23 11:25:00 EDT, Height Start Date: 01/26/23 Stop Date: 01/21/24 Status: Ordered sertraline 50 mg oral tablet 1 tablet, By Mouth, 2 times a day, # 180 tablet, 3 Refills, Maintenance, 03/17/23 10:16:00 EDT, [facility] #[id number], 165, cm, 03/08/23 11:21:00 EDT, Height, 43.1, [...] claudication 1 Confirmed Active Underweight Confirmed Active 18881 CTA: IMPRESSION: 1. 70% stenosis of the [...] smoking about 8-10 cigarettes daily.; entered on: 2/25/20 Sex Implantable Device List Procedure Provider Procedure Date Device Type Site Repair Hernia Inguinal Open Germán HEATH, Gavino 02/22/23 Un known Groin Right Device Identifier Serial Number Lot or Batch Number Manufacturing Date Expiration Date Distinct Identification Code MRI Safety Implantable Status Assigning Authority Unknown Unknown [id number] Unknown 11/27/26 Unknown Unknown Active Unknown Procedure Provider Procedure Date Device Type Site Repair Hernia Inguinal Open Germán HEATH, Gavino 02/22/23 Un known Abdomen Device Identifier Serial Number Lot or Batch Number Manufacturing Date Expiration Date Distinct Identification Code MRI Safety Implantable Status Assigning Authority Unknown Unknown [id number] Unknown 07/30/27 Unknown Unknown Active Unknown Procedure Provider Procedure Date Device Type Site Repair Hernia Ventral Open Germán HEATH, Gavino 02/22/23 Unk nown Abdomen Device Identifier Serial Number Lot or Batch Number Manufacturing Date Expiration Date Distinct Identification Code MRI Safety Implantable Status Assigning Authority Unknown Unknown [id number] Unknown 08/30/24 Unknown Unknown Active Unknown Patient Care team information Care Team Personnel Name: Beni Doshi RN Position: [facility] RN Member Role: Primary Care Nurse Name: Kevyn Mckeon MD Position: [facility] Physician - Primary Care Member Role: PCP Address: Address: [address] [place] [id number]- Name: Melissa Chau RN Position: [facility] RN Member Role: Primary Care Nurse Name: Gemini Alfaro Position: [facility] [place] Surgical Nurse Practitioner Member Role: Affiliate Manager Name: Marifer Thomas RN Position: [facility] RN Member Role: Primary Care Nurse Name: Ana Lopes RN Position: [facility] RN Member Role: Primary Care Nurse Care Team Related Persons Name: CATY LOCKWOOD Name: MARYCRUZ MANN Name: MARYCRUZ TORRES Name: NO, NONE Name: DAVID KRAFT Address: [address] [address]
--- OUTSIDE RECORDS SUMMARY | 2023-06-20 15:15 | XMS_ITS | Continuity of Care Document ---
Author Name Unknown Organization [facility] Andrea Bryson lt Address [address] [place] [address]- Care Team Providers Care Gift Shop Clerk Name Role Phone Kevyn Mckeon MD Primary Care Phys[id number] Date(s): 05/01/23 - 05/08/23 [facility] Adult [address] [place] [address]- Attending Physician: Kevyn Mckeon MD Allergies, Adverse [...] Given pneumococcal 23-valent vaccine 2 07/03/00 Recorded [id number] 12y+ bivalent booster vax 3 04/06/22 Recorded [...] tetanus/diphtheria/pertussis, acel(Tdap) 6 07/03/08 Recorded 1Result Comment: [id number] 2Location History: Dr. Lao 3Result Comment: Nida 4Result Comment: NIDA 5Result Comment: [facility] [phone] 6Location History: Dr. Lao Medications acetaminophen 500 [...] 03/24/23 17:19:00 EDT, Route to Pharmacy Electronically, [facility] #[id number], Partial fill upon patientrequest if the prescription is for a schedule II op... Start Date: 03/24/23 Status: Ordered dicyclomine 20 mg oral tablet 1 tablet = 20 mg, By Mouth, 4 times a day, PRN spasm, # 120 tablet, 5 Refills, Maintenance, 04/18/23 11:26:00 EDT, Tablet, [facility] #[id number], Partial fill upon patient request if the [...] 01/26/23 12:33:00 EDT, Route to Pharmacy Electronically, [facility] #[id number], 165, cm, 01/11/23 11:25:00 EDT, Height Start Date: 01/26/23 Stop Date: 01/21/24 Status: [facility], Maintenance, iron, 05/01/23 14:13:00 EDT, Supply Start Date: 05/01/23 Status: Ordered sertraline 50 mg oral tablet 1 tablet, By Mouth, 2 times a day, # 180 tablet, 3 Refills, Maintenance, 03/17/23 10:16:00 EDT, [facility] #[id number], 165, cm, 03/08/23 11:21:00 EDT, Height, 43.1, [...] claudication 1 Confirmed Active Underweight Confirmed Active 73352 CTA: IMPRESSION: 1. 70% stenosis of the [...] to oldest [Reference Range]: 1 2 Height 158.7 cm (05/01/23 2:20 PM) 158.7 cm (05/01/23 2:16 PM) Weight 46.1 kg (05/01/23 2:16 PM) Oxygen Saturation [94-100 %] 99 % (05/01/23 2:16 PM) Pulse Rate [55-90 bpm] 74 bpm (05/01/23 2:16 PM) Body Mass Index [18.5-24.99 kg/m2] 18.3 kg/m2 *L* (05/01/23 2:16 PM) Blood Pressure [90-138/55-84 mm Hg] 143/ 70mm Hg *H* (05/01/23 2:20 PM) 140/65mm Hg *H* (05/01/23 2:16 PM) Mode of Delivery (Oxygen) Room air (05/01/23 2:16 PM) Blood pressure sites Arm, left (05/01/23 2:20 PM) Arm, left (05/01/23 2:16 PM) Weight Obtained Via Standing scale (05/01/23 2:16 PM) Social History Social History Type Response [...] Safety Implantable Status Assigning Authority Unknown Unknown [id number] Unknown 11/27/26 Unknown Unknown Active Unknown Procedure Provider Procedure Date Device Type Site Repair Hernia Inguinal Open Germán HEATH, Gavino 02/22/23 Un known Abdomen Device Identifier Serial Number Lot or Batch Number Manufacturing Date Expiration Date Distinct Identification Code MRI Safety Implantable Status Assigning Authority Unknown Unknown [id number] Unknown 07/30/27 Unknown Unknown Active Unknown Procedure Provider Procedure Date Device Type Site Repair Hernia Ventral Open Germán HEATH, Gavino 02/22/23 Unk nown Abdomen Device Identifier Serial Number Lot or Batch Number Manufacturing Date Expiration Date Distinct Identification Code MRI Safety Implantable Status Assigning Authority Unknown Unknown [id number] Unknown 08/30/24 Unknown Unknown Active Unknown Patient Care team information Care Team Personnel Name: Beni Doshi RN Position: [facility] RN Member Role: Primary Care Nurse Name: Kevyn Mckeon MD Position: [facility] Physician - Primary Care Member Role: PCP Address: Address: [address] [place] [address]- Name: Melissa Chau RN Position: [facility] RN Member Role: Primary Care Nurse Name: Gemini Alfaro Position: [facility] Licensed Practical Vocational Nurse Member Role: Grounds Keeper Name: Moses ROBERTO, Ana Ruiz Position: [facility] RN Member Role: Primary Care Nurse Care Team Related Persons Name: CATY LOCKWOOD Name: MARYCRUZ MANN Name: MARYCRUZ TORRES Name: NO, NONE Name: DAVID KRAFT Address: [address] [address]
--- OUTSIDE RECORDS SUMMARY | 2023-06-20 15:16 | XMS_ITS | Continuity of Care Document ---
Author Name Unknown Organization [facility] Address [address] [place] [address]- Care Team Providers Care Foreign Legal Consultant Name Role Phone Mike HEATH, Kevyn Gaytan Primary Care Physician Encounter [facility] R [id number] Date(s): 02/15/23 - 03/17/23 [facility] [address] [place], [place] [address] Attending Physician: Nessa Rouse Admitting Physician: Nessa Rouse Referring Physician: AdmtrNessa Allergies, Adverse Reactions, Alerts Substance Reaction Severity Status predniSONE makes you jumpy Active sulfa drugs itchy, red Active Augmentin ? caused c diff Active Demerol HCl sick to stomach Active Adhesive Bandage use paper tape thin skin bandages cause tears in skin Active Pollen Active ZyrTEC rash Active Flonase vomiting Active Nuts tree nuts - upset stomach Ac tive Percocet 5/325 sick to stomach Active Immunizations Given and Recorded Vaccine Date Status Refusal Reason pneumococcal 23-valent vaccine 1 07/06/22 Given pneumococcal 23-valent vaccine 2 07/03/00 Recorded [id number] 12y+ bivalent booster vax 3 04/06/22 Recorded [...] tetanus/diphtheria/pertussis, acel(Tdap) 6 07/03/08 Recorded 1Result Comment: [id number] 2Location History: Dr. Lao 3Result Comment: Nida 4Result Comment: NIDA 5Result Comment: [facility] [phone] 6Location History: Dr. Lao Medications acetaminophen 500 [...] 04/27/22 13:48:00 EDT, Route to Pharmacy Electronically, [facility] #[id number], Partialfill upon patient request if the prescription [...] 5 Refills, Maintenance, 10/19/22 13:40:00 EDT, Tablet, [facility] #[id number], Partial fill upon patient request if the prescription is for a schedule II opioid... Start Date: 10/19/22 Stop Date: 01/11/23 Status: Ordered duloxetine 30 mg oral enteric coated capsule 1 capsule = 30 mg, By Mouth, 2 times a day, Increase in dose, # 180 capsule, 3 Refills, Maintenance, 04/27/22 13:42:00 EDT, [facility] #[id number], Partial fill upon patient request if the [...] 02/24/23 16:21:00 EDT, Route to Pharmacy Electronically, [facility] #[id number], Partial fill upon patient request if the prescription is for a schedule II opi... Start Date: 02/24/23 Stop Date: 03/03/23 Status: Ordered hydrOXYzine hydrochloride 25 mg oral tablet 1 tablet = 25 mg, By Mouth, 4 times a day, PRN for anxiety, # 40 tablet, 1 Refills, Acute 04/30/23 10:49:00 EDT, 02/28/23 10:49:00 EDT, Tablet, [facility] #[id number], Partial fill upon patient request if the [...] 01/26/23 12:33:00 EDT, Route to Pharmacy Electronically, [facility] #[id number], 165, cm, 01/11/23 11:25:00 EDT, Height Start Date: 01/26/23 Stop Date: 01/21/24 Status: Ordered sertraline 50 mg oral tablet 1 tablet, By Mouth, 2 times a day, # 180 tablet, 3 Refills, Maintenance, 03/17/23 10:16:00 EDT, [facility] #[id number], 165, cm, 03/08/23 11:21:00 EDT, Height, 43.1, [...] claudication 1 Confirmed Active Underweight Confirmed Active 31747 CTA: IMPRESSION: 1. 70% stenosis of the [...] Safety Implantable Status Assigning Authority Unknown Unknown [id number] Unknown 11/27/26 Unknown Unknown Active Unknown Procedure Provider Procedure Date Device Type Site Repair Hernia Inguinal Open Gavino Dunlap MD 02/22/23 Un known Abdomen Device Identifier Serial Number Lot or Batch Number Manufacturing Date Expiration Date Distinct Identification Code MRI Safety Implantable Status Assigning Authority Unknown Unknown [id number] Unknown 07/30/27 Unknown Unknown Active Unknown Procedure Provider Procedure Date Device Type Site Repair Hernia Ventral Open Germán HEATH, Gavino 02/22/23 Unk nown Abdomen Device Identifier Serial Number Lot or Batch Number Manufacturing Date Expiration Date Distinct Identification Code MRI Safety Implantable Status Assigning Authority Unknown Unknown [id number] Unknown 08/30/24 Unknown Unknown Active Unknown Patient Care team information Care Team Personnel Name: Beni Doshi RN Position: [facility] RN Member Role: Primary Care Nurse Name: Ronald Heath RN Position: [facility] RN Member Role: Primary Care Nurse Name: Kevyn Mckeon MD Position: [facility] Physician - Primary Care Member Role: PCP Address: Address: [address] [place] [id number] Name: Melissa Chau RN Position: [facility] RN Member Role: Primary Care Nurse Name: Gemini Alfaro Position: [facility] Refrigeration Installer Member Role: Operational Review Sergeant Name: Marifer Thomas RN Position: [facility] RN Member Role: Primary Care Nurse Name: Ana Lopes RN Position: [facility] RN Member Role: Primary Care Nurse Care Team Related Persons Name: CATY LOCKWOOD Name: MARYCRUZ MANN Name: MARYCRUZ TORRSE Name: NO, NONE Name: DAVID KRAFT Address: [address] [address]
--- OUTSIDE RECORDS SUMMARY | 2023-06-20 15:16 | XMS_ITS | Continuity of Care Document ---
Author Name Unknown Organization [facility] Address [address] [place] [address] [address] [place] [address]- Care Team Providers Care Gas Meter Prover Name Role Phone Mike HEATH, Kevyn Gaytan Primary Care Physician Encounter [facility] Date(s): 03/03/23 - 04/02/[address] [place] [address]- Allergies, Adverse Reactions, Alerts Substance Reaction Severity [...] Given pneumococcal 23-valent vaccine 2 07/03/00 Recorded [id number] 12y+ bivalent booster vax 3 04/06/22 Recorded [...] tetanus/diphtheria/pertussis, acel(Tdap) 6 07/03/08 Recorded 1Result Comment: [id number] 2Location History: Dr. Lao 3Result Comment: Nida 4Result Comment: NIDA 5Result Comment: [facility] [phone] 6Location History: Dr. Lao Medications acetaminophen 500 [...] 03/24/23 17:19:00 EDT, Route to Pharmacy Electronically, [facility] #[id number], Partial fill upon patientrequest if the prescription [...] 5 Refills, Maintenance, 10/19/22 13:40:00 EDT, Tablet, [facility] #[id number], Partial fill upon patient request if the prescription is for a schedule II opioid... Start Date: 10/19/22 Stop Date: 01/11/23 Status: Ordered duloxetine 30 mg oral enteric coated capsule 1 capsule = 30 mg, By Mouth, 2 times a day, Increase in dose, # 180 capsule, 3 Refills, Maintenance, 04/27/22 13:42:00 EDT, [facility] #[id number], Partial fill upon patient request if the [...] 02/24/23 16:21:00 EDT, Route to Pharmacy Electronically, [facility] #[id number], Partial fill upon patient request if the prescription is for a schedule II opi... Start Date: 02/24/23 Stop Date: 03/03/23 Status: Ordered hydrOXYzine hydrochloride 25 mg oral tablet 1 tablet = 25 mg, By Mouth, 4 times a day, PRN for anxiety, # 40 tablet, 1 Refills, Acute 04/30/23 10:49:00 EDT, 02/28/23 10:49:00 EDT, Tablet, [facility] #[id number], Partial fill upon patient request if the [...] 01/26/23 12:33:00 EDT, Route to Pharmacy Electronically, [facility] #[id number], 165, cm, 01/11/23 11:25:00 EDT, Height Start Date: 01/26/23 Stop Date: 01/21/24 Status: Ordered sertraline 50 mg oral tablet 1 tablet, By Mouth, 2 times a day, # 180 tablet, 3 Refills, Maintenance, 03/17/23 10:16:00 EDT, [facility] #[id number], 165, cm, 03/08/23 11:21:00 EDT, Height, 43.1, [...] claudication 1 Confirmed Active Underweight Confirmed Active 41686 CTA: IMPRESSION: 1. 70% stenosis of the [...] Safety Implantable Status Assigning Authority Unknown Unknown [id number] Unknown 11/27/26 Unknown Unknown Active Unknown Procedure Provider Procedure Date Device Type Site Repair Hernia Inguinal Open Gavino Dunlap MD 02/22/23 Un known Abdomen Device Identifier Serial Number Lot or Batch Number Manufacturing Date Expiration Date Distinct Identification Code MRI Safety Implantable Status Assigning Authority Unknown Unknown [id number] Unknown 07/30/27 Unknown Unknown Active Unknown Procedure Provider Procedure Date Device Type Site Repair Hernia Ventral Open Gavino Dunlap MD 02/22/23 Unk nown Abdomen Device Identifier Serial Number Lot or Batch Number Manufacturing Date Expiration Date Distinct Identification Code MRI Safety Implantable Status Assigning Authority Unknown Unknown [id number] Unknown 08/30/24 Unknown Unknown Active Unknown Patient Care team information Care Team Personnel Name: Beni Doshi RN Position: [facility] RN Member Role: Primary Care Nurse Name: Kevyn Mckeon MD Position: [facility] Physician - Primary Care Member Role: PCP Address: Address: [address] [place] [id number] Name: Melissa Chau RN Position: [facility] RN Member Role: Primary Care Nurse Name: Gemini Alfaro Position: [facility] [place] Shuttle Final Inspector Member Role: Area Safety Manager Name: Marifer Thomas RN Position: [facility] RN Member Role: Primary Care Nurse Name: Ana Lopes RN Position: [facility] RN Member Role: Primary Care Nurse Care Team Related Persons Name: CATY LOCKWOOD Name: MARYCRUZ MANN Name: MARYCRUZ TORRES Name: NO, NONE Name: DAVID KRAFT Address: [address] [address]
--- OUTSIDE RECORDS SUMMARY | 2023-06-20 15:16 | XMS_ITS | Continuity of Care Document ---
Author Name Unknown Organization [facility] Andrea Bryson lt Address [address] [place] [address]- Care Team Providers Care Lead Injection Mold Technician Name Role Phone Mike HEATH, Kevyn Gaytan Primary Care Physician [phone] Encounter [facility] Date(s): 04/17/23 - 05/17/23 [facility] Adult [address] [place] [address]- Allergies, Adverse Reactions, Alerts Substance Reaction Severity Status predniSONE makes you jumpy Active sulfa drugs itchy, red Active Flonase vomiting Active Augmentin ? caused c diff Active Adhesive Bandage use paper tape thin skin bandages cause tears in skin Active Nuts tree nuts - upset stomach Ac tive Percocet / sick to stomach Active ZyrTEC rash Active Demerol HCl sick to stomach Active Pollen Active Immunizations Given and Recorded Vaccine Date Status Refusal Reason influenza virus vaccine, inactivated 05/07/23 Jerry rded influenza virus vaccine, inactivated 1 04/06/22 Re corded influenza virus vaccine, inactivated 03/28/21 Jerry rded influenza virus vaccine, inactivated 04/10/19 Jerry rded SARS-CoV-2(COVID-19)mRNA-LNP vac([id number]) 05/07/23 Recorded pneumococcal 23-valent vaccine 2 07/06/22 Given pneumococcal 23-valent vaccine 3 07/03/00 Recorded [id number] 12y+ bivalent booster vax 4 04/06/22 Recorded SARS-CoV-2 (COVID-19) mRNA BNT-162b2 vac 07/14/21 Recorded SARS-CoV-2 (COVID-19) mRNA BNT-162b2 vac 11/04/20 Recorded SARS-CoV-2 (COVID-19) mRNA BNT-162b2 vac 10/14/20 Recorded tetanus-diphtheria toxoids (Td) 5 12/10/20 Given Influenza Virus Vaccine (oldterm) 03/02/20 Recorde d pneumococcal 13-valent vaccine 06/07/16 Recorded tetanus/diphtheria/pertussis, acel(Tdap) 6 07/03/08 Recorded 1Result Comment: NIDA 2Result Comment: [id number] 3Location History: Dr. Lao 4Result Comment: Nida 5Result Comment: [facility] [phone] 6Location History: Dr. Lao Medications acetaminophen 500 [...] 03/24/23 17:19:00 EDT, Route to Pharmacy Electronically, [facility] #[id number], Partial fill upon patientrequest if the prescription is for a schedule II op... Start Date: 03/24/23 Status: Ordered dicyclomine 20 mg oral tablet 1 tablet = 20 mg, By Mouth, 4 times a day, PRN spasm, # 120 tablet, 5 Refills, Maintenance, 04/18/23 11:26:00 EDT, Tablet, [facility] #[id number], Partial fill upon patient request if the [...] 01/26/23 12:33:00 EDT, Route to Pharmacy Electronically, [facility] #[id number], 165, cm, 01/11/23 11:25:00 EDT, Height Start Date: 01/26/23 Stop Date: 01/21/24 Status: Ordered Misc Rx Refills 0, Maintenance, iron, 05/01/23 14:13:00 EDT, Supply Start Date: 05/01/23 Status: Ordered sertraline 50 mg oral tablet 1 tablet, By Mouth, 2 times a day, # 180 tablet, 3 Refills, Maintenance, 03/17/23 10:16:00 EDT, [facility] #[id number], 165, cm, 03/08/23 11:21:00 EDT, Height, 43.1, [...] claudication 1 Confirmed Active Underweight Confirmed Active 46024 CTA: IMPRESSION: 1. 70% stenosis of the [...] Safety Implantable Status Assigning Authority Unknown Unknown [id number] Unknown 11/27/26 Unknown Unknown Active Unknown Procedure Provider Procedure Date Device Type Site Repair Hernia Inguinal Open Gavino Dunlap MD 02/22/23 Un known Abdomen Device Identifier Serial Number Lot or Batch Number Manufacturing Date Expiration Date Distinct Identification Code MRI Safety Implantable Status Assigning Authority Unknown Unknown [id number] Unknown 07/30/27 Unknown Unknown Active Unknown Procedure Provider Procedure Date Device Type Site Repair Hernia Ventral Open Gavino Dunlap MD 02/22/23 Unk nown Abdomen Device Identifier Serial Number Lot or Batch Number Manufacturing Date Expiration Date Distinct Identification Code MRI Safety Implantable Status Assigning Authority Unknown Unknown [id number] Unknown 08/30/24 Unknown Unknown Active Unknown Patient Care team information Care Team Personnel Name: Beni Doshi RN Position: [facility] RN Member Role: Primary Care Nurse Name: Kevyn Mckeon MD Position: [facility] Physician - Primary Care Member Role: PCP Address: Address: [address] [place] [id number] Name: Melissa Chau RN Position: S RN Member Role: Primary Care Nurse Name: Gemini Alfaro Position: [facility] [place] Warehouse Associate Driver Member Role: Groundskeeping Maintenance Worker Name: Moses RN, Ana Ruiz Position: [facility] RN Member Role: Primary Care Nurse Care Team Related Persons Name: CATY LOCKWOOD Name: MARYCRUZ MANN Name: MARYCRUZ TORRES Name: NO, NONE Name: DAVID KRAFT Address: [address] [address]
--- OUTSIDE RECORDS SUMMARY | 2023-06-20 15:16 | XMS_ITS | Continuity of Care Document ---
Author Name Unknown Organization [facility] Address [address] [place] [address] [address] [place] [address]- Care Team Providers Care Manager Physical Name Role Phone Kevyn Mckeon MD [id number] Date[facility] - 04/24/[address] [place] [address]- Attending Physician: Gavino Dunlap MD Referring Physician: Kevyn Mckeon MD Allergies, Adverse Reactions, Alerts Substance Reaction Severity Status predniSONE makes you jumpy Active Flonase vomiting Active Pollen Active ZyrTEC rash Active sulfa drugs itchy, [...] Given pneumococcal 23-valent vaccine 2 07/03/00 Recorded [id number] 12y+ bivalent booster vax 3 04/06/22 Recorded [...] tetanus/diphtheria/pertussis, acel(Tdap) 6 07/03/08 Recorded 1Result Comment: [id number] 2Location History: Dr. Lao 3Result Comment: Nida 4Result Comment: NIDA 5Result Comment: [facility] [phone] 6Location History: Dr. Lao Medications acetaminophen 500 [...] 03/24/23 17:19:00 EDT, Route to Pharmacy Electronically, [facility] #[id number], Partial fill upon patientrequest if the prescription [...] 5 Refills, Maintenance, 04/18/23 11:26:00 EDT, Tablet, [facility] #[id number], Partial fill upon patient request if the prescription is for a schedule II opioid drug., 165, cm, 1... Start Date: 04/18/23 Stop Date: 10/15/23 Status: Ordered duloxetine 30 mg oral enteric coated capsule 1 capsule, By Mouth, 2 times a day, # 180 capsule, 3 Refills, Maintenance, 04/20/23 4:15:00 EDT, [facility] #[id number], 165, cm, 04/17/23 12:07:00 EDT, Height, 43.1, [...] 02/24/23 16:21:00 EDT, Route to Pharmacy Electronically, [facility] #[id number], Partial fill upon patient request if the prescription is for a schedule II opi... Start Date: 02/24/23 Stop Date: 03/03/23 Status: Ordered hydrOXYzine hydrochloride 25 mg oral tablet 1 tablet = 25 mg, By Mouth, 4 times a day, PRN for anxiety, # 40 tablet, 1 Refills, Acute 04/30/23 10:49:00 EDT, 02/28/23 10:49:00 EDT, Tablet, [facility] #[id number], Partial fill upon patient request if the [...] 01/26/23 12:33:00 EDT, Route to Pharmacy Electronically, [facility] #[id number], 165, cm, 01/11/23 11:25:00 EDT, Height Start Date: 01/26/23 Stop Date: 01/21/24 Status: Ordered sertraline 50 mg oral tablet 1 tablet, By Mouth, 2 times a day, # 180 tablet, 3 Refills, Maintenance, 03/17/23 10:16:00 EDT, [facility] #[id number], 165, cm, 03/08/23 11:21:00 EDT, Height, 43.1, [...] claudication 1 Confirmed Active Underweight Confirmed Active 78221 CTA: IMPRESSION: 1. 70% stenosis of the [...] oldest [Reference Range]: 1 Height 165 cm (04/17/23 12:07 PM) Weight 44.8 kg (04/17/23 12:07 PM) Pulse Rate [55-90 bpm] 73 bpm (04/17/23 12:07 PM) Body Mass Index [18.5-24.99 kg/m2] 16.46 kg/m2 *L* (04/17/23 12:07 PM) Blood Pressure [90-138/55-84 mm Hg] 126/ 74mm Hg (04/17/23 12:07 PM) Respiratory Rate [16-30 br/min] 16 br/mi n (04/17/23 12:07 PM) Temperature [96.8-100.4 DegF] 98.5 DegF (04/17/23 12:07 PM) Blood pressure sites Arm, left (04/17/23 12:07 PM) Temperature Route Temporal (04/17/23 12:07 PM) Weight Obtained Via Standing scale (04/17/23 12:07 PM) Social History Social History Type Response [...] Safety Implantable Status Assigning Authority Unknown Unknown [id number] Unknown 11/27/26 Unknown Unknown Active Unknown Procedure Provider Procedure Date Device Type Site Repair Hernia Inguinal Open Gavino Dunlap MD 02/22/23 Un known Abdomen Device Identifier Serial Number Lot or Batch Number Manufacturing Date Expiration Date Distinct Identification Code MRI Safety Implantable Status Assigning Authority Unknown Unknown [id number] Unknown 07/30/27 Unknown Unknown Active Unknown Procedure Provider Procedure Date Device Type Site Repair Hernia Ventral Open Gavino Dunlap MD 02/22/23 Unk nown Abdomen Device Identifier Serial Number Lot or Batch Number Manufacturing Date Expiration Date Distinct Identification Code MRI Safety Implantable Status Assigning Authority Unknown Unknown [id number] Unknown 08/30/24 Unknown Unknown Active Unknown Patient Care team information Care Team Personnel Name: Beni Doshi RN Position: S RN Member Role: Primary Care Nurse Name: Kevyn Mckeon MD Position: [facility] Physician - Primary Care Member Role: PCP Address: Address: [address] [place] [address]- Name: Melissa Chau RN Position: [facility] RN Member Role: Primary Care Nurse Name: Gemini Alfaro Position: [facility] Chair Car Attendant Member Role: Interface Designer Name: Marifre Thomas RN Position: [facility] RN Member Role: Primary Care Nurse Name: Ana Lopes RN Position: [facility] RN Member Role: Primary Care Nurse Care Team Related Persons Name: CATY LOCKWOOD Name: MARYCRUZ MANN Name: MARYCRUZ TORRES Name: NO, NONE Name: DAVID KRAFT Address: home [address] [address]
--- OUTSIDE RECORDS SUMMARY | 2023-06-20 15:17 | XMS_ITS | Continuity of Care Document ---
Author Name Unknown Organization [facility] Address [address] [place] [address] [address] [place] [address]- Care Team Providers Care Telegraph Mechanic Name Role Phone Mike HEATH, Kevyn Gaytan Primary Care Physician [phone] Encounter [facility] Date(s): 04/05/23 - 05/05/23 [facility] Surgical [address] [place] [address]- Allergies, Adverse Reactions, Alerts Substance Reaction Severity [...] Given pneumococcal 23-valent vaccine 2 07/03/00 Recorded [id number] 12y+ bivalent booster vax 3 04/06/22 Recorded [...] tetanus/diphtheria/pertussis, acel(Tdap) 6 07/03/08 Recorded 1Result Comment: [id number] 2Location History: Dr. Lao 3Result Comment: Nida 4Result Comment: NIDA 5Result Comment: [facility] [id number] 6Location History: Dr. Lao Medications acetaminophen 500 [...] 03/24/23 17:19:00 EDT, Route to Pharmacy Electronically, [facility] #[id number], Partial fill upon patientrequest if the prescription is for a schedule II op... Start Date: 03/24/23 Status: Ordered dicyclomine 20 mg oral tablet 1 tablet = 20 mg, By Mouth, 4 times a day, PRN spasm, # 120 tablet, 5 Refills, Maintenance, 04/18/23 11:26:00 EDT, Tablet, [facility] #[id number], Partial fill upon patient request if the [...] 01/26/23 12:33:00 EDT, Route to Pharmacy Electronically, [facility] #[id number], 165, cm, 01/11/23 11:25:00 EDT, Height Start Date: 01/26/23 Stop Date: 01/21/24 Status: Ordered Misc Rx Refills 0, Maintenance, iron, 05/01/23 14:13:00 EDT, Supply Start Date: 05/01/23 Status: Ordered sertraline 50 mg oral tablet 1 tablet, By Mouth, 2 times a day, # 180 tablet, 3 Refills, Maintenance, 03/17/23 10:16:00 EDT, [facility] #[id number], 165, cm, 03/08/23 11:21:00 EDT, Height, 43.1, [...] claudication 1 Confirmed Active Underweight Confirmed Active 97369 CTA: IMPRESSION: 1. 70% stenosis of the [...] Safety Implantable Status Assigning Authority Unknown Unknown [id number] Unknown 11/27/26 Unknown Unknown Active Unknown Procedure Provider Procedure Date Device Type Site Repair Hernia Inguinal Open Germán HEATH, Gavino 02/22/23 Un known Abdomen Device Identifier Serial Number Lot or Batch Number Manufacturing Date Expiration Date Distinct Identification Code MRI Safety Implantable Status Assigning Authority Unknown Unknown [id number] Unknown 07/30/27 Unknown Unknown Active Unknown Procedure Provider Procedure Date Device Type Site Repair Hernia Ventral Open Germán HEATH, Gavino 02/22/23 Unk nown Abdomen Device Identifier Serial Number Lot or Batch Number Manufacturing Date Expiration Date Distinct Identification Code MRI Safety Implantable Status Assigning Authority Unknown Unknown [id number] Unknown 08/30/24 Unknown Unknown Active Unknown Patient Care team information Care Team Personnel Name: Beni Doshi RN Position: [facility] RN Member Role: Primary Care Nurse Name: Kevyn Mckeon MD Position: [facility] Physician - Primary Care Member Role: PCP Address: Address: [address] [place] [address]- Name: Melissa Chau RN Position: [facility] RN Member Role: Primary Care Nurse Name: Gemini Alfaro Position: [facility] Diesel Inspector Member Role: Power Manager Name: Ana Lopes RN Position: [facility] RN Member Role: Primary Care Nurse Care Team Related Persons Name: CATY LOCKWOOD Name: MARYCRUZ MANN Name: MARYCRUZ TORRES Name: NO, NONE Name: DAVID KRAFT Address: [address] [address]
--- OUTSIDE RECORDS SUMMARY | 2023-06-20 15:17 | XMS_ITS | Continuity of Care Document ---
Author Name Unknown Organization [facility] Address [address] [place] [address] [address] [place] [address]- Care Team Providers Care Vp [employer] Name Role Phone Kevyn Mckeon MD Primary [id number] Date[facility] - 03/15/[address] [place] [address]- Attending Physician: Gavino Dunlap MD Referring Physician: Kevyn Mckeon MD Allergies, Adverse Reactions, Alerts Substance Reaction Severity Status predniSONE makes you jumpy Active sulfa drugs itchy, red Active Flonase vomiting Active Demerol HCl sick [...] Given pneumococcal 23-valent vaccine 2 07/03/00 Recorded [id number] 12y+ bivalent booster vax 3 04/06/22 Recorded [...] tetanus/diphtheria/pertussis, acel(Tdap) 6 07/03/08 Recorded 1Result Comment: [id number] 2Location History: Dr. Lao 3Result Comment: Nida 4Result Comment: NIDA 5Result Comment: [facility] [id number] 6Location History: Dr. Lao Medications acetaminophen 500 [...] 04/27/22 13:48:00 EDT, Route to Pharmacy Electronically, [facility][id number], Partialfill upon patient request if the prescription [...] 5 Refills, Maintenance, 10/19/22 13:40:00 EDT, Tablet, [facility][id number], Partial fill upon patient request if the prescription is for a schedule II opioid... Start Date: 10/19/22 Stop Date: 01/11/23 Status: Ordered duloxetine 30 mg oral enteric coated capsule 1 capsule = 30 mg, By Mouth, 2 times a day, Increase in dose, # 180 capsule, 3 Refills, Maintenance, 04/27/22 13:42:00 EDT, [facility] #[id number], Partial fill upon patient request if the [...] 02/24/23 16:21:00 EDT, Route to Pharmacy Electronically, [facility][id number], Partial fill upon patient request if the prescription is for a schedule II opi... Start Date: 02/24/23 Stop Date: 03/03/23 Status: Ordered hydrOXYzine hydrochloride 25 mg oral tablet 1 tablet = 25 mg, By Mouth, 4 times a day, PRN for anxiety, # 40 tablet, 1 Refills, Acute 04/30/23 10:49:00 EDT, 02/28/23 10:49:00 EDT, Tablet, [facility] #[id number], Partial fill upon patient request if the [...] 01/26/23 12:33:00 EDT, Route to Pharmacy Electronically, [facility] #[id number], 165, cm, 01/11/23 11:25:00 EDT, Height Start Date: 01/26/23 Stop Date: 01/21/24 Status: Ordered sertraline 50 mg oral tablet 1 tablet, By Mouth, 2 times a day, # 180 tablet, 3 Refills, Maintenance, 09/22/22 5:18:00 EDT, [facility]), 170, cm, 09/07/22 11:31:00 EST, [...] claudication 1 Confirmed Active Underweight Confirmed Active 39884 CTA: IMPRESSION: 1. 70% stenosis of the [...] oldest [Reference Range]: 1 Height 165 cm (03/08/23 11: AM) Weight 45.7 kg (03/08/23 11: AM) Pulse Rate [55-90 bpm] 74 bpm (03/08/23 11: AM) Body Mass Index [18.5-24.99 kg/m2] 16.79 kg/m2 *L* (03/08/23 11: AM) Blood Pressure [90-138/55-84 mm Hg] 113/ 66mm Hg (03/08/23 11: AM) Respiratory Rate [16-30 br/min] 18 br/mi n (03/08/23 AM) Temperature [96.8-100.4 DegF] 97.6 DegF (03/08/23 11:21 AM) Blood pressure sites Arm, left (03/08/23 11:21 AM) Temperature Route Temporal (03/08/23 11:21 AM) Weight Obtained Via Standing scale (03/08/23 11:21 AM) Social History Social History Type Response [...] Safety Implantable Status Assigning Authority Unknown Unknown [id number] Unknown 11/27/26 Unknown Unknown Active Unknown Procedure Provider Procedure Date Device Type Site Repair Hernia Inguinal Open Germán HEATH, Gavino 02/22/23 Un known Abdomen Device Identifier Serial Number Lot or Batch Number Manufacturing Date Expiration Date Distinct Identification Code MRI Safety Implantable Status Assigning Authority Unknown Unknown [id number] Unknown 07/30/27 Unknown Unknown Active Unknown Procedure Provider Procedure Date Device Type Site Repair Hernia Ventral Open Germán HEATH, Gavino 02/22/23 Unk nown Abdomen Device Identifier Serial Number Lot or Batch Number Manufacturing Date Expiration Date Distinct Identification Code MRI Safety Implantable Status Assigning Authority Unknown Unknown [id number] Unknown 08/30/24 Unknown Unknown Active Unknown Patient Care team information Care Team Personnel Name: Beni Doshi RN Position: [facility] RN Member Role: Primary Care Nurse Name: Ronald Heath RN Position: [facility] RN Member Role: Primary Care Nurse Name: Kevyn Mckeon MD Position: [facility] Physician - Primary Care Member Role: PCP Address: Address: [address] [place] [id number]- Name: Melissa Chau RN Position: S RN Member Role: Primary Care Nurse Name: Gemini Alfaro Position: [facility] [place] Telescope Operator Member Role: Oil Well Service Operator Name: Marifer Thomas RN Position: [facility] RN Member Role: Primary Care Nurse Name: Ana Lopes RN Position: [facility] RN Member Role: Primary Care Nurse Care Team Related Persons Name: CATY LOCKWOOD Name: MARYCRUZ MANN Name: MARYCRUZ TORRES Name: NO, NONE Name: DAVID KRAFT Address: home [address] [place] [id number]
--- OUTSIDE RECORDS SUMMARY | 2023-06-20 15:18 | XMS_ITS | Continuity of Care Document ---
Author Name Unknown Organization [facility] Andrew Mendez Bryson lt Address [address] [place] [address]- Care Team Providers Care Binder Caser Name Role Phone Mike HEATH, Kevyn Gaytan Primary Care Physician [phone] [place] [facility] [place]): 03/17/23 - 04/16/23 [facility] [address] [place] [address]- Allergies, Adverse Reactions, Alerts Substance Reaction Severity Status predniSONE makes you jumpy Active sulfa drugs itchy, red Active Demerol HCl sick to stomach Active Adhesive Bandage use paper tape thin skin bandages cause tears in skin Active Nuts tree nuts - upset stomach Ac tive Percocet 5/325 sick to stomach Active ZyrTEC rash Active Flonase vomiting Active Augmentin ? caused c diff Active Pollen Active Immunizations Given and Recorded Vaccine Date Status Refusal Reason pneumococcal 23-valent vaccine 1 07/06/22 Given pneumococcal 23-valent vaccine 2 07/03/00 Recorded [id number] 12y+ bivalent booster vax 3 04/06/22 Recorded influenza virus vaccine, inactivated 4 04/06/22 Re corded influenza virus vaccine, inactivated 03/28/21 Jerry rded influenza virus vaccine, inactivated 04/10/19 Jeryr rded SARS-CoV-2 (COVID-19) mRNA BNT-162b2 vac 07/14/21 Recorded SARS-CoV-2 (COVID-19) mRNA BNT-162b2 vac 11/04/20 Recorded SARS-CoV-2 (COVID-19) mRNA BNT-162b2 vac 10/14/20 Recorded tetanus-diphtheria toxoids (Td) 5 12/10/20 Given Influenza Virus Vaccine (oldterm) 03/02/20 Recorde d pneumococcal 13-valent vaccine 06/07/16 Recorded tetanus/diphtheria/pertussis, acel(Tdap) 6 07/03/08 Recorded 1Result Comment: [id number] 2Location History: Dr. Lao 3Result Comment: Nida 4Result Comment: NIDA 5Result Comment: [facility] [phone] 6Location History: Dr. Lao Medications acetaminophen 500 [...] 03/24/23 17:19:00 EDT, Route to Pharmacy Electronically, [facility] #[id number], Partial fill upon patientrequest if the prescription [...] 5 Refills, Maintenance, 10/19/22 13:40:00 EDT, Tablet, [facility] #[id number], Partial fill upon patient request if the prescription is for a schedule II opioid... Start Date: 10/19/22 Stop Date: 01/11/23 Status: Ordered duloxetine 30 mg oral enteric coated capsule 1 capsule = 30 mg, By Mouth, 2 times a day, Increase in dose, # 180 capsule, 3 Refills, Maintenance, 04/27/22 13:42:00 EDT, [facility] #[id number], Partial fill upon patient request if the [...] 02/24/23 16:21:00 EDT, Route to Pharmacy Electronically, [facility] #[id number], Partial fill upon patient request if the prescription is for a schedule II opi... Start Date: 02/24/23 Stop Date: 03/03/23 Status: Ordered hydrOXYzine hydrochloride 25 mg oral tablet 1 tablet = 25 mg, By Mouth, 4 times a day, PRN for anxiety, # 40 tablet, 1 Refills, Acute 04/30/23 10:49:00 EDT, 02/28/23 10:49:00 EDT, Tablet, [facility] #[id number], Partial fill upon patient request if the [...] 01/26/23 12:33:00 EDT, Route to Pharmacy Electronically, [facility] #[id number], 165, cm, 01/11/23 11:25:00 EDT, Height Start Date: 01/26/23 Stop Date: 01/21/24 Status: Ordered sertraline 50 mg oral tablet 1 tablet, By Mouth, 2 times a day, # 180 tablet, 3 Refills, Maintenance, 03/17/23 10:16:00 EDT, [facility] #[id number], 165, cm, 03/08/23 11:21:00 EDT, Height, 43.1, [...] claudication 1 Confirmed Active Underweight Confirmed Active 13295 CTA: IMPRESSION: 1. 70% stenosis of the [...] Safety Implantable Status Assigning Authority Unknown Unknown [id number] Unknown 11/27/26 Unknown Unknown Active Unknown Procedure Provider Procedure Date Device Type Site Repair Hernia Inguinal Open Gavino Dunlap MD 02/22/23 Un known Abdomen Device Identifier Serial Number Lot or Batch Number Manufacturing Date Expiration Date Distinct Identification Code MRI Safety Implantable Status Assigning Authority Unknown Unknown [id number] Unknown 07/30/27 Unknown Unknown Active Unknown Procedure Provider Procedure Date Device Type Site Repair Hernia Ventral Open Gavino Dunlap MD 02/22/23 Unk nown Abdomen Device Identifier Serial Number Lot or Batch Number Manufacturing Date Expiration Date Distinct Identification Code MRI Safety Implantable Status Assigning Authority Unknown Unknown [id number] Unknown 08/30/24 Unknown Unknown Active Unknown Patient Care team information Care Team Personnel Name: Beni Doshi RN Position: [facility] RN Member Role: Primary Care Nurse Name: Kevyn Mckeon MD Position: [facility] Physician - Primary Care Member Role: PCP Address: Address: [address] [place] [address] Name: Melissa Chau RN Position: [facility] RN Member Role: Primary Care Nurse Name: Gemini Alfaro Position: [facility] Lace Tearing Supervisor Member Role: Credit Processor Name: aMrifer Thomas RN Position: [facility] RN Member Role: Primary Care Nurse Name: Ana Lopes RN Position: [facility] RN Member Role: Primary Care Nurse Care Team Related Persons Name: CATY LOCKWOOD Name: MARYCRUZ MANN Name: MARYCRUZ TORRES Name: NO, NONE Name: DAVID KRAFT Address: home [address] [place] [phone]
--- OUTSIDE RECORDS SUMMARY | 2023-06-20 15:18 | XMS_ITS | Continuity of Care Document ---
Author Name Unknown Organization [facility] Address [address] [place] [address]- Care Team Providers Care Inspector Motor Vehicles Name Role Phone Mike HEATH, Kevyn Gaytan Primary Care Physician Encounter [facility] Date(s): 03/24/23 - 04/23/23 [facility] [address] [place] [address]- Allergies, Adverse Reactions, Alerts Substance Reaction Severity [...] Given pneumococcal 23-valent vaccine 2 07/03/00 Recorded [id number] 12y+ bivalent booster vax 3 04/06/22 Recorded [...] tetanus/diphtheria/pertussis, acel(Tdap) 6 07/03/08 Recorded 1Result Comment: [id number] 2Location History: Dr. Lao 3Result Comment: Nida 4Result Comment: NIDA 5Result Comment: [facility] [phone] 6Location History: Dr. Lao Medications acetaminophen 500 [...] 03/24/23 17:19:00 EDT, Route to Pharmacy Electronically, [facility] #[id number], Partial fill upon patientrequest if the prescription [...] 5 Refills, Maintenance, 04/18/23 11:26:00 EDT, Tablet, [facility] #89165, Partial fill upon patient request if the prescription is for a schedule II opioid drug., 165, cm, 1... Start Date: 04/18/23 Stop Date: 10/15/23 Status: Ordered duloxetine 30 mg oral enteric coated capsule 1 capsule, By Mouth, 2 times a day, # 180 capsule, 3 Refills, Maintenance, 04/20/23 4:15:00 EDT, [facility] #[id number], 165, cm, 04/17/23 12:07:00 EDT, Height, 43.1, [...] 02/24/23 16:21:00 EDT, Route to Pharmacy Electronically, [facility] #[id number], Partial fill upon patient request if the prescription is for a schedule II opi... Start Date: 02/24/23 Stop Date: 03/03/23 Status: Ordered hydrOXYzine hydrochloride 25 mg oral tablet 1 tablet = 25 mg, By Mouth, 4 times a day, PRN for anxiety, # 40 tablet, 1 Refills, Acute 04/30/23 10:49:00 EDT, 02/28/23 10:49:00 EDT, Tablet, [facility] #[id number], Partial fill upon patient request if the [...] 01/26/23 12:33:00 EDT, Route to Pharmacy Electronically, [facility] #[id number], 165, cm, 01/11/23 11:25:00 EDT, Height Start Date: 01/26/23 Stop Date: 01/21/24 Status: Ordered sertraline 50 mg oral tablet 1 tablet, By Mouth, 2 times a day, # 180 tablet, 3 Refills, Maintenance, 03/17/23 10:16:00 EDT, [facility] #[id number], 165, cm, 03/08/23 11:21:00 EDT, Height, 43.1, [...] claudication 1 Confirmed Active Underweight Confirmed Active 84757 CTA: IMPRESSION: 1. 70% stenosis of the [...] Safety Implantable Status Assigning Authority Unknown Unknown [id number] Unknown 11/27/26 Unknown Unknown Active Unknown Procedure Provider Procedure Date Device Type Site Repair Hernia Inguinal Open Germán HEATH, Gavino 02/22/23 Un known Abdomen Device Identifier Serial Number Lot or Batch Number Manufacturing Date Expiration Date Distinct Identification Code MRI Safety Implantable Status Assigning Authority Unknown Unknown [id number] Unknown 07/30/27 Unknown Unknown Active Unknown Procedure Provider Procedure Date Device Type Site Repair Hernia Ventral Open Germán HEATH, Gavino 02/22/23 Unk nown Abdomen Device Identifier Serial Number Lot or Batch Number Manufacturing Date Expiration Date Distinct Identification Code MRI Safety Implantable Status Assigning Authority Unknown Unknown [id number] Unknown 08/30/24 Unknown Unknown Active Unknown Patient Care team information Care Team Personnel Name: Beni Doshi RN Position: [facility] RN Member Role: Primary Care Nurse Name: Kevyn Mckeon MD Position: [facility] Physician - Primary Care Member Role: PCP Address: Address: [address] [place] [address]- Name: Melissa Chau RN Position: [facility] RN Member Role: Primary Care Nurse Name: Gemini Alfaro Position: [facility] [place] Sergeant Missile Crewman Member Role: [employer] Name: Marifer Thomas RN Position: [facility] RN Member Role: Primary Care Nurse Name: Ana Lopes RN Position: [facility] RN Member Role: Primary Care Nurse Care Team Related Persons Name: CATY LOCKWOOD Name: MARYCRUZ MANN Name: MARYCRUZ TORRES Name: NO, NONE Name: DAVID KRAFT Address: home [address] [place] [address]
--- OUTSIDE RECORDS SUMMARY | 2023-06-20 15:18 | XMS_ITS | Continuity of Care Document ---
Author Name Unknown Organization [facility] Address [address] [place] [address] [address] [place] [address]- Care Team Providers Care Shoe Maker Name Role Phone Mike HEATH, Kevyn Gaytan Primary Care Physician Encounter [facility] Date(s): 04/17/23 - 05/17/[address] [place] [address]- Attending Physician: Nessa Rouse Admitting Physician: AdmNessa [...] upset stomach Ac tive Pollen Active Percocet 5/ sick to stomach Active ZyrTEC rash Active Flonase vomiting Active Immunizations Given and Recorded Vaccine Date Status Refusal Reason influenza virus vaccine, inactivated 05/07/23 Jerry rded influenza virus vaccine, inactivated 1 04/06/22 Re corded influenza virus vaccine, inactivated 03/28/21 Jerry rded influenza virus vaccine, inactivated 04/10/19 Jerry rded SARS-CoV-2(COVID-19)mRNA-LNP vac([id number]) 05/07/23 Recorded pneumococcal 23-valent vaccine 2 07/06/22 Given pneumococcal 23-valent vaccine 3 07/03/00 Recorded [id number] 12y+ bivalent booster vax 4 04/06/22 Recorded SARS-CoV-2 (COVID-19) mRNA BNT-162b2 vac 07/14/21 Recorded SARS-CoV-2 (COVID-19) mRNA BNT-162b2 vac 11/04/20 Recorded SARS-CoV-2 (COVID-19) mRNA BNT-162b2 vac 10/14/20 Recorded tetanus-diphtheria toxoids (Td) 5 12/10/20 Given Influenza Virus Vaccine (oldterm) 03/02/20 Recorde d pneumococcal 13-valent vaccine 06/07/16 Recorded tetanus/diphtheria/pertussis, acel(Tdap) 6 07/03/08 Recorded 1Result Comment: NIDA 2Result Comment: [id number] 3Location History: Dr. Lao 4Result Comment: Nida 5Result Comment: [facility] [phone] 6Location History: Dr. Lao Medications acetaminophen 500 [...] 03/24/23 17:19:00 EDT, Route to Pharmacy Electronically, [facility] #[id number], Partial fill upon patientrequest if the prescription is for a schedule II op... Start Date: 03/24/23 Status: Ordered dicyclomine 20 mg oral tablet 1 tablet = 20 mg, By Mouth, 4 times a day, PRN spasm, # 120 tablet, 5 Refills, Maintenance, 04/18/23 11:26:00 EDT, Tablet, [facility] #63083, Partial fill upon patient request if the [...] 01/26/23 12:33:00 EDT, Route to Pharmacy Electronically, [facility] #[id number], 165, cm, 01/11/23 11:25:00 EDT, Height Start Date: 01/26/23 Stop Date: 01/21/24 Status: Ordered Misc Rx Refills 0, Maintenance, iron, 05/01/23 14:13:00 EDT, Supply Start Date: 05/01/23 Status: Ordered sertraline 50 mg oral tablet 1 tablet, By Mouth, 2 times a day, # 180 tablet, 3 Refills, Maintenance, 03/17/23 10:16:00 EDT, [facility] #[id number], 165, cm, 03/08/23 11:21:00 EDT, Height, 43.1, [...] claudication 1 Confirmed Active Underweight Confirmed Active 68295 CTA: IMPRESSION: 1. 70% stenosis of the [...] Safety Implantable Status Assigning Authority Unknown Unknown [id number] Unknown 11/27/26 Unknown Unknown Active Unknown Procedure Provider Procedure Date Device Type Site Repair Hernia Inguinal Open Gavino Dunlap MD 02/22/23 Un known Abdomen Device Identifier Serial Number Lot or Batch Number Manufacturing Date Expiration Date Distinct Identification Code MRI Safety Implantable Status Assigning Authority Unknown Unknown [id number] Unknown 07/30/27 Unknown Unknown Active Unknown Procedure Provider Procedure Date Device Type Site Repair Hernia Ventral Open Gavino Dunlap MD 02/22/23 Unk nown Abdomen Device Identifier Serial Number Lot or Batch Number Manufacturing Date Expiration Date Distinct Identification Code MRI Safety Implantable Status Assigning Authority Unknown Unknown [id number] Unknown 08/30/24 Unknown Unknown Active Unknown Patient Care team information Care Team Personnel Name: Beni Doshi RN Position: [facility] RN Member Role: Primary Care Nurse Name: Kevyn Mckeon MD Position: [facility] Physician - Primary Care Member Role: PCP Address: Address: [address] [place] [address]- [place] Name: Melissa Chau RN Position: [facility] RN Member Role: Primary Care Nurse Name: Gemini Alfaro Position: [facility] Learning Support Services Director Member Role: Licensed Vocational Nurse Name: Moses ROBERTO, Ana Ruiz Position: [facility] RN Member Role: Primary Care Nurse Care Team Related Persons Name: CATY LOCKWOOD Name: MARYCRUZ MANN Name: MARYCRUZ TORRES Name: NO, NONE Name: DAVID KRAFT Address: home [address] [address]
--- OUTSIDE RECORDS SUMMARY | 2023-06-20 15:19 | XMS_ITS | Patient Health Record ---
Author Name Unknown Organization [facility] Address [address] [place] [address] Care Team Providers Care Network Operations Lead Name Role Phone Kevyn Mckeon Primary Care Provider Jagjit Redding Jr Unavailable ALLERGIES Allergen (clinical drug ingredient) Drug/Non Drug Allergy documented on EMR Reaction Allergy Type Onset Date Status Sulfa Unknown Drug Allergy Active bacitracin Antibiotic Unknown Drug Allergy Activ e RESULTS Component Value Reference Range Notes Pathology Reviewed date:08/05/2022 01:56:26 PM Interpretation: Performing Lab:[facility], [address] [place] [id number] Notes/Report: REASON FOR REFERRAL No Information MEDICATIONS [...] Problem Colon cancer screening (Z12.11) Active confirmed 717872434 Problem 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) Active confirmed 813490633 Problem Irritable bowel syndrome with diarrhea (K58.0) Active confirmed 147518195 Problem Erosive esophagitis (K22.10) Active confirmed Erosive esophagitis (50322398) Problem 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 Oliveira esophagus (746615705) Problem Abnormal barium swallow (R93.3) Active confirmed 710987449 Problem Non-intractable vomiting without nausea, unspecified vomiting type (R11.11) Active confirmed 933224126 Problem Clostridioides difficile infection (A49.8) Active confirmed 329882443 Problem Anal lesion (K62.9) Active confirmed 80071663 Encounters Encounter Location Date Provider Diagnosis [facility] Outpatient [address] [place] [id number] 08/03/2022 Jagjit Crawford Jr Oliveira esophagus K22.70 and Erosive esophagitis K22.10 [facility] [address] [place] [phone] 07/13/2022 Jagjit Crawford Jr 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 K22.70 and Clostridioides difficile infection A49.8 [facility] [address] [place] [id number] 02/01/2023 Jagjit Crawford Jr [facility] [address] [place] [id number] 12/21/2022 Jagjit Crawford Jr [facility] [address] [place] [phone] 06/28/2022 Jagjit Crawford Jr [facility] [address] [place] [id number] 06/30/2022 Jagjit Crawford Jr 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 K22.70 [facility] [address] [place] [id number] 08/05/2022 Jagjit Crawford Jr [facility] [address] [place] [phone] 10/03/2022 Jagjit Crawford Jr [facility] [address] [place] [id number] 11/30/2022 Jagjit Crawford Jr [facility] [address] [place] [phone] 01/19/2023 Jagjit Crawford Jr ASSESSMENTS Encounter Date [...] Insured Coverage Start Date Coverage End Date [facility] [address] [place], [place] [phone] [id number] ANAND KRAFT Self - patient is the [...]
--- OUTSIDE RECORDS SUMMARY | 2023-06-20 15:19 | XMS_ITS | Continuity of Care Document ---
Author Name Unknown Organization [facility] Andrea Bryson lt Address [address] [place] [address]- Care Team Providers Care Protective Services Case Worker Name Role Phone Mike HEATH, Kevyn Gaytan Primary Care Physician Encounter [facility] Date(s): 03/16/23 - 04/15/23 [facility] Adult [address] [place] [address]- Attending Physician: Admtr, [id number] Admitting Physician: Admtr, [id number] Referring Physician: [...] Given pneumococcal 23-valent vaccine 2 07/03/00 Recorded [id number] 12y+ bivalent booster vax 3 04/06/22 Recorded [...] tetanus/diphtheria/pertussis, acel(Tdap) 6 07/03/08 Recorded 1Result Comment: [id number] 2Location History: Dr. Lao 3Result Comment: [place] 4Result Comment: [place] 5Result Comment: [facility] [id number] 6Location History: Dr. Lao Medications acetaminophen 500 [...] 03/24/23 17:19:00 EDT, Route to Pharmacy Electronically, [facility] #[id number], Partial fill upon patientrequest if the prescription [...] 5 Refills, Maintenance, 10/19/22 13:40:00 EDT, Tablet, [facility] #[id number], Partial fill upon patient request if the prescription is for a schedule II opioid... Start Date: 10/19/22 Stop Date: 01/11/23 Status: Ordered duloxetine 30 mg oral enteric coated capsule 1 capsule = 30 mg, By Mouth, 2 times a day, Increase in dose, # 180 capsule, 3 Refills, Maintenance, 04/27/22 13:42:00 EDT, [facility] #[id number], Partial fill upon patient request if the [...] 02/24/23 16:21:00 EDT, Route to Pharmacy Electronically, [facility] #[id number], Partial fill upon patient request if the prescription is for a schedule II opi... Start Date: 02/24/23 Stop Date: 03/03/23 Status: Ordered hydrOXYzine hydrochloride 25 mg oral tablet 1 tablet = 25 mg, By Mouth, 4 times a day, PRN for anxiety, # 40 tablet, 1 Refills, Acute 04/30/23 10:49:00 EDT, 02/28/23 10:49:00 EDT, Tablet, [facility] #[id number], Partial fill upon patient request if the [...] 01/26/23 12:33:00 EDT, Route to Pharmacy Electronically, [facility] #[id number], 165, cm, 01/11/23 11:25:00 EDT, Height Start Date: 01/26/23 Stop Date: 01/21/24 Status: Ordered sertraline 50 mg oral tablet 1 tablet, By Mouth, 2 times a day, # 180 tablet, 3 Refills, Maintenance, 03/17/23 10:16:00 EDT, [id number], 165, cm, 03/08/23 11:21:00 EDT, Height, 43.1, [...] claudication 1 Confirmed Active Underweight Confirmed Active 72566 CTA: IMPRESSION: 1. 70% stenosis of the [...] Safety Implantable Status Assigning Authority Unknown Unknown [id number] Unknown 11/27/26 Unknown Unknown Active Unknown Procedure Provider Procedure Date Device Type Site Repair Hernia Inguinal Open Germán HEATH, Gavino 02/22/23 Un known Abdomen Device Identifier Serial Number Lot or Batch Number Manufacturing Date Expiration Date Distinct Identification Code MRI Safety Implantable Status Assigning Authority Unknown Unknown [id number] Unknown 07/30/27 Unknown Unknown Active Unknown Procedure Provider Procedure Date Device Type Site Repair Hernia Ventral Open Germán HEATH, Gavino 02/22/23 Unk nown Abdomen Device Identifier Serial Number Lot or Batch Number Manufacturing Date Expiration Date Distinct Identification Code MRI Safety Implantable Status Assigning Authority Unknown Unknown [id number] Unknown 08/30/24 Unknown Unknown Active Unknown Laboratory * Event Display: Non Lab Results Authored Date: Patient Care team information Care Team Personnel Name: Beni Doshi RN Position: [facility] RN Member Role: Primary Care Nurse Name: Kevyn Mckeon MD Position: [facility] Physician - Primary Care Member Role: PCP Address: Address: [address] [place] [id number]- Name: Melissa Chau RN Position: S RN Member Role: Primary Care Nurse Name: Gemini Alfaro Position: [facility] [place] Associate Web Developer Member Role: Internal Wholesaler Name: Marifer Thomas RN Position: [facility] RN Member Role: Primary Care Nurse Name: Ana Lopes RN Position: [facility] RN Member Role: Primary Care Nurse Care Team Related Persons Name: CATY LOCKWOOD Name: MARYCRUZ MANN Name: MARYCRUZ TORRES Name: NO, NONE Name: DAVID KRAFT Address: home [address] [place] [id number]
--- NOTE | 2023-06-20 15:55 | AM.OFFWIN_ITS ---
Intake Vital Signs 06/20/23 15:56 Height 5 ft 4 in Weight 103 lb 4 oz BMI 17.7 BP 160/74 H Blood Pressure Location Lt brachial Position Sitting Pulse 59 Pulse Source Pulse Oximeter Temp 98.2 F Temp Source Oral Pulse Oximetry (%) 100 Oxygen Delivery Method Room Air Intake Visit Reasons: EP swollen ear lobes swelling down neck Intake Note: pt is here for swollen ear lobes with pus and she has had pus like swollen pus like wounds on her face pt says they are painful and she has had a rash since 03/25 pt says the wounds are oozing since the skin has been removed off her face in some areas Patient Tobacco Use Status: Current everyday Tobacco user Allergies Sulfa (Sulfonamide Antibiotics) [SULFA (SULFONAMIDE ANTIBIOTICS)] Allergy (Intermediate, Verified 06/20/23 16:01) ITCHING/RASH sulfadiazine Allergy (Unknown, Verified 06/20/23 16:01) Unknown tree nut [TREE NUT] Adverse Reaction (Intermediate, Verified 06/20/23 16:01) GI UPSET acetaminophen [From PERCOCET] Adverse Reaction (Unknown, Verified 06/20/23 16:01) NAUSEA meperidine [From Demerol] Adverse Reaction (Unknown, Verified 06/20/23 16:01) Nausea oxycodone [Percocet] Adverse Reaction (Unknown, Verified 06/20/23 16:01) Nausea Flonase Allergy (Unknown, Uncoded 06/20/23 16:01) Unknown ZyrTEC Allergy (Unknown, Uncoded 06/20/23 16:01) Unknown HPI HPI Comments History of Present Illness Details This is a 73-year-old female with a past medical history of hypertension, gastroesophageal reflux disease, anxiety and depression presenting for evaluation of a rash on her face. Patient states that two and a half weeks ago she noticed a pustule on her left earlobe which she squeezed, expressing clear fluid. Since that time she has developed similar lesions on her right earlobe, right cheek, forehead and nose. Patient has been using antibiotic cream topically however she continues to pick at these lesions secondary to her anxiety. She describes these lesions as pruritic and not painful. Patient denies having any fevers, chills or purulent discharge. [facility] Medical History Chronic pain syndrome Severe major depression Postlaminectomy syndrome Thrombosed hemorrhoids Hypertension Anxiety Surgical History History of bunionectomy History of hammer toe correction History of foot surgery History of D&C History of hand surgery Family History Father Hypertension Heart disease Mother History of lumpectomy Social History Household Members: None [facility] Do you presently have visiting nurse or other home services: No Alcohol intake: current Alcohol intake frequency: does not drink Alcohol type: wine Comment: pt using furnitures instead of walker, pt can be inpatient at times Patient Tobacco Use Status: Current everyday Tobacco user Tobacco use type: Cigarette Cigarettes Per Day: 8 e-Cigarette/Vaping Use: Currently Using Second Hand Smoke Exposure: No service: No Current occupational status: retired Review of Systems Const All systems reviewed & are unremarkable except as noted in HPI and below Denies chills, Denies fever(s) and Reports other (anxiety) Eyes Reports no additional complaints ENT Reports as per HPI Skin/Breast Reports as per HPI and Reports lesions Neuro Reports no additional complaints Physical Exam Vital Signs: BMI result Body Mass Index 17.7 Pt is afebrile. Const General: cooperative, comfortable and anxious; No no acute distress (mild distress, anxiety), ill appearing or lethargic Nutritional Appearance: underweight Orientation/consciousness: patient oriented x3 and No lethargic Limitations: no limitations Eyes Eyelids: Yes eyelids normal Conjunctivae: conjunctivae normal Sclerae: sclerae normal Pupils: Equal, round and reactive pupils present EOM: EOMs intact bilaterally Neck Lymphatic: no lymphadenopathy noted Skin Other: There is a nodule on each earlobe without fluctuance, with significant surrounding erythematous crusting and flaking without induration, a surface abrasion overlying the right aspect of the anterior chin without surrounding erythema or discharge, there are surface abrasions overlying the left nasal turbinate and overlying the nasal bone again without any secondary cellulitis. Additionally, the patient has a confluent maculopapular eruption across her superior anterior chest wall with evidence of manual excoriations. Neuro General: patient oriented x3 Cranial nerves: Yes Equal, round and reactive pupils present Psych Appearance: grossly normal Speech and movement: Pressured speech present Affect: Other affect and mood findings present (anxious with pressured speech, tangential with HPI) Insight: Fair insight present (Psych) Judgement: Fair judgement present (Psych) Assessment & Plan Assessment & Plan (1) Facial dermatitis: Comment: The patient is adamantly refusing any antibiotic therapy or oral steroids secondary to an episode of C difficile and thrush. The patient is also refusing hydroxyzine for the pruritic nature of this rash. The patient does not have any secondary cellulitis at this time however her picking behavior may certainly lead to a secondary cellulitis. The plan at this time is for the patient to wash her face twice daily with a gentle soap and warm water; thereafter she will dry her face thoroughly and apply triple antibiotic ointment twice daily to all lesions. The patient is advised to STOP picking these lesions as before. The patient will return in 2 weeks if her symptoms have not improved to determine if further treatment with steroids or oral antibiotics is warranted. Code(s): L30.9 - Dermatitis, unspecified (2) Anxiety about health: Code(s): R45.89 - Other symptoms and signs involving emotional state Plan: Patient will consult with her psychiatric prescriber for ongoing evaluation and management of her anxiety which is most likely contributing to the exacerbation of these lesions by her repetitive picking. Patient is agreeable to this plan of care. Plan Patient will consult with her psychiatric prescriber for ongoing evaluation and management of her anxiety which is most likely contributing to the exacerbation of these lesions by her repetitive picking. Patient is agreeable to this plan of care. Coding Level of Care Code Est Pt Level 3 (98251) Diagnoses Facial dermatitis L30.9 Anxiety about health R45.89 Time Spent (min) 30
[2023-06-20 15:56] VITALS: BP 160/74; PULSE 59; TEMP 36.8; O2SAT 100; BMI 17.7
== END 2023-06-20 16:45 | disposition home or self-care (01) ==
PROVIDERS: PCP Family Medicine; Visit Provider Physician Assistant
DX: L30.9 Dermatitis, unspecified (principal); R45.89 Other symptoms and signs involving emotional state
CPT/HCPCS: 99213

== ENCOUNTER 2023-10-09 10:31 | Emergency (ER) | payer MEDICARE, SELFPAY ==
--- NOTE | ~2023-10-09 | US_ITS ---
EXAMINATION: US VENOUS ULTRASOUND WITH DOPPLER LOWER EXTREMITY, RIGHT CLINICAL INFORMATION: Right lower extremity pain and swelling. COMPARISON: 04/22/2014 TECHNIQUE: Ultrasound of the deep veins is performed from the hip to the calf with compression sonography and color and pulse Doppler assessment. Spectral analysis with color-flow imaging is performed. FINDINGS: There is normal venous compression and respiratory variation and augmented flow. The visualized common femoral vein, superficial femoral vein, profunda femoral vein, popliteal vein, and the trifurcation region shows no evidence of deep venous thrombosis. If the patient's symptoms persist, followup ultrasound in 5 days 7 days might be of value to exclude proximal propagation from a non-visualized calf vein. US/US venous duplex LE RT IMPRESSION: No DVT demonstrated in the right lower extremity.
[2023-10-09 10:38] VITALS: BP 146/68; PULSE 70; RESP 20; TEMP 36.9; O2SAT 100; BMI 19.6
--- NOTE | 2023-10-09 12:12 | ED.GENADULT ---
HPI - General Adult General Chief complaint: Skin/Abscess/Foreign Body Stated complaint: r leg swelling Time Seen by Provider: 10/09/23 12:12 Source: patient Mode of arrival: ambulatory Limitations: no limitations History of Present Illness HPI narrative: Patient is a 73 year old assigned female at with a history of health anxiety presenting to the emergency department today with right upper leg swelling. Patient states that over the last 4 days she has had right upper leg swelling. Patient denies any dizziness, lightheadedness, abdominal pain, nausea, vomiting, fever, chills, blurry vision, double vision, loss of vision, chest pain, difficulty breathing, shortness of breath, back pain, night sweats, pain with urination, increased urinary frequency, increased urinary urgency, blood in her urine or stool, syncope or a near syncopal episode, recent trauma or falls, bowel incontinence, bladder incontinence, bowel retention, bladder retention, or any other complaints at this time. Onset (ago): day(s) (4) Location: right and lower extremity Severity: mild Severity scale (1-10): 2 Relieving factors: none Exacerbating factors: none Associated symptoms: denies other symptoms Treatments prior to arrival: none Related Data Home Medications ?Medication ?Instructions ?Recorded ?Confirmed lisinopril 20 mg tablet 20 mg PO DAILY 05/18/20 03/13/23 amlodipine 10 mg tablet 1 tab PO DAILY 06/12/22 03/13/23 sertraline 50 mg tablet 1 tab PO BID 06/12/22 03/13/23 esomeprazole magnesium 40 mg 40 mg PO DAILY 06/20/23 capsule,delayed release Allergies Allergy/AdvReac Type Severity Reaction Status Date / Time Sulfa (Sulfonamide Allergy Intermediate ITCHING/DARSHAN Verified 10/09/23 10:40 Antibiotics) H [SULFA (SULFONAMIDE ANTIBIOTICS)] sulfadiazine Allergy Unknown Unknown Verified 10/09/23 10:40 tree nut [TREE NUT] AdvReac Intermediate GI UPSET Verified 10/09/23 10:40 acetaminophen [From PERCOCET] AdvReac Unknown NAUSEA Verified 10/09/23 10:40 meperidine [From Demerol] AdvReac Unknown Nausea Verified 10/09/23 10:40 oxycodone [Percocet] AdvReac Unknown Nausea Verified 10/09/23 10:40 Flonase Allergy Unknown Unknown [facility] Unknown Uncoded 06/20/23 16:01 Review of Systems Constitutional: Constitutional: Reports no additional constitutional complaints, Denies chills, Denies fever(s) and Denies night sweats Eyes: Eyes: Reports no additional eye complaints, Denies blurry vision, Denies change in vision, Denies diplopia, Denies eye discharge, Denies loss of vision and Denies eye pain ENT: Denies dizziness Cardiovascular: Cardiovascular: Reports no additional cardiovascular complaints, Denies chest pain, Denies lightheadedness, Denies Loss of Consciousness and Denies dyspnea Respiratory: Respiratory: Reports no additional respiratory complaints and Denies dyspnea Gastrointestinal: Gastrointestinal: Reports no additional gastrointestinal complaints, Denies abdominal pain, Denies melena, Denies hematochezia, Denies change in bowel habits and Denies change in stool character Genitourinary: Genitourinary: Denies hematuria, Denies urinary frequency, Denies dysuria, Denies urinary incontinence, Denies urinary hesitancy and Denies urinary urgency Musculoskeletal: Musculoskeletal: Reports no additional musculoskeletal complaints, Denies numbness and Denies tingling Comments: right upper leg swelling Neurologic: Denies dizziness, Denies loss of vision, Denies numbness and Denies tingling Psychiatric: Psychiatric: Reports no additional psychiatric complaints Endocrine: Endocrine: Reports no additional endocrine complaints Hematologic/Lymphatic: Hematologic/Lymphatic: Reports no additional hematologic/lymphatic complaints Allergic/Immunologic: Allergic/Immunologic: Reports no additional allergic/immunologic complaints PMFSH Past Medical History Attestation statement: The following information was validated with the patient. Source: old records reviewed and nursing notes reviewed Medical History Chronic pain syndrome Severe major depression Postlaminectomy syndrome Thrombosed hemorrhoids Hypertension Anxiety Surgical History History of bunionectomy History of hammer toe correction History of foot surgery History of D&C History of hand surgery Family History Family History Father Hypertension Heart disease Mother History of lumpectomy Social History Social History Household Members: None Housing: Condominium Do you presently have visiting nurse or other home services: No Alcohol intake: current Alcohol intake frequency: does not drink Alcohol type: wine Comment: pt using furnitures instead of walker, pt can be inpatient at times Patient Tobacco Use Status: Current everyday Tobacco user Tobacco use type: Cigarette Cigarettes Per Day: 8 e-Cigarette/Vaping Use: Currently Using Second Hand Smoke Exposure: No Advance Directives: No Advance Directives Information Provided: No service: No Current occupational status: retired Physical Exam ED Vital Signs: Vital Signs - 24 hr 10/09/23 10:38 10/09/23 12:21 10/09/23 14:43 Temperature 98.4 F 97.6 F 97.6 F Pulse Rate 70 62 62 Respiratory Rate 20 18 16 Blood Pressure 146/68 H 155/75 H 155/75 H Pulse Oximetry 100 98 98 Oxygen Delivery Method Room Air Room Air Room Air BMI result Body Mass Index 19.6 Const General: cooperative, no acute distress, alert and awake Nutritional Appearance: well nourished Orientation/consciousness: patient oriented x3 Limitations: no limitations HENMT Head: Yes normal to inspection and Yes atraumatic Ears: hearing grossly normal bilaterally and external ears normal General nose exam: Normal external nose present, no nasal discharge noted and no epistaxis Face and sinus: Yes normal facial exam, No abrasion and No laceration Mouth: Normal oral and palatal mucosa present, no drooling and no muffled voice Eyes General: appearance normal, both eyes and all related structures Periorbital: periorbital findings normal Eyelids: Yes eyelids normal Conjunctivae: conjunctivae normal Pupils: Equal, round and reactive pupils present EOM: EOMs intact bilaterally Neck Neck: Yes normal visual inspection, Yes full ROM and Yes no lymphadenopathy Chest Chest palpation & inspection: normal inspection of the chest Resp Effort & Inspection: normal respiratory effort and able to speak in complete sentences GI Inspection: Yes normal to inspection Neuro General: patient oriented x3 and moves all extremities Cranial nerves: Yes Equal, round and reactive pupils present Cognition (Neuro): normal cognition Motor exam (neuro): 5/5 motor strength present throughout Sensory Exam: Normal double simultaneous stimulation for sensation Coordination: [id number] test normal Extrem General: Yes normal to inspection, Yes full ROM and Yes capillary refill normal Psych Appearance: grossly normal Mental Status: mental status grossly normal Affect: normal affect Attitude: cooperative Thought process: Normal thought process present Thought content: Normal thought content present Insight: Good insight present (Psych) Medical Decision Making Medical Decision Making MDM Narrative: Patient is a 73 year old assigned female at with a history of health anxiety presenting to the emergency department today with right upper leg swelling. Patient's physical exam was unremarkable. Patient's RLE US showed no acute process. I explained my physical exam findings as well as all test results to the patient. I answered all questions asked by the patient. I stressed the importance of the patient taking her medication as prescribed. I stressed the importance of the patient following up with her primary care provider. I stressed the importance of the patient returning to the emergency department immediately if her symptoms were to worsen or if she were to develop any dizziness, shortness of breath, difficulty breathing, chest pain, blurry vision, loss of vision, nausea, vomiting, abdominal pain, fever, chills, back pain, or any other complaints. Patient verbalized agreement and understanding with this treatment plan and discharge. Differential Diagnosis Differential Diagnoses: The differential diagnosis associated with the presentation includes Right upper leg pain Right upper leg swelling Health anxiety Muscle spasm DVT Admission/Observation Consideration of admission/observation: Escalation of care including admission/observation considered Patient would have been admitted to the hospital had her work up had any findings where hospital admission was appropriate and her clinical presentation warranted hospital admission. Independent Interpretation I performed an independent interpretation of an: Ultrasound Interpretation: My interpretation is in agreement with the radiologist's impression of this imaging study. EXAMINATION: US VENOUS ULTRASOUND WITH DOPPLER LOWER EXTREMITY, RIGHT CLINICAL INFORMATION: Right lower extremity pain and swelling. COMPARISON: 04/22/2014 TECHNIQUE: Ultrasound of the deep veins is performed from the hip to the calf with compression sonography and color and pulse Doppler assessment. Spectral analysis with color-flow imaging is performed. FINDINGS: There is normal venous compression and respiratory variation and augmented flow. The visualized common femoral vein, superficial femoral vein, profunda femoral vein, popliteal vein, and the trifurcation region shows no evidence of deep venous thrombosis. If the patient's symptoms persist, followup ultrasound in 5 days 7 days might be of value to exclude proximal propagation from a non-visualized calf vein. US/US venous duplex LE RT IMPRESSION: No DVT demonstrated in the right lower extremity. Dictated By: Beny Rahman MD Signed By: Electronically signed by Beny Rahman MD 10/09/23 7344 Radiology Impression Discussion of test interpretation with radiology: I have reviewed the radiologist's reading. Discharge Plan Discharge Clinical Impression: Muscle spasm Patient Disposition: Home, Self-Care Instructions: Muscle Spasm (ED) Additional Instructions: Follow up with your primary care provider. Return to the emergency department immediately if your symptoms worsen or if you develop any dizziness, shortness of breath, difficulty breathing, chest pain, blurry vision, loss of vision, nausea, vomiting, abdominal pain, fever, chills, back pain, or any other complaints. Prescriptions: No Action amlodipine 10 mg tablet 1 tab PO DAILY sertraline 50 mg tablet 1 tab PO BID esomeprazole magnesium 40 mg capsule,delayed release(DR/EC) 40 mg PO DAILY lisinopril 20 mg tablet 20 mg PO DAILY Referrals: Kevyn Mckeon MD [Primary Care Provider] - Interventions: ED Discharge Assessment Last Done: 10/09/23 14:43 Discharge Date/Time: 10/09/23 14:44 Print Language: Chinese
[2023-10-09 12:21] VITALS: BP 155/75; PULSE 62; RESP 18; TEMP 36.4; O2SAT 98
--- OUTSIDE RECORDS SUMMARY | 2023-10-09 12:29 | XMS_ITS | Continuity of Care Document ---
Author Organization [facility] Address [address] [place] [address]- Care Team Providers Care Literacy Coordinator Name Role Phone Kevyn Mckeon MD Primary Care Physician Encounter [facility] [place] Date(s): 06/20/23 - 06/27/23 [facility] Adult [address] [place] [address]- Encounter Diagnosis Dermatological disease(Discharge Diagnosis) - 06/20/23 Attending Physician: Maya MORENOLIFTERAnnie Vance Referring Physician: Kevyn Mckeon MD Allergies, Adverse Reactions, Alerts Substance Reaction Severity Status predniSONE makes you jumpy Active sulfa drugs itchy, red Active Flonase vomiting Active Augmentin ? caused c diff Active Demerol HCl sick to stomach Active Adhesive Bandage use paper tape thin skin bandages cause tears in skin Active Nuts tree nuts - upset stomach Ac tive Pollen Active Percocet / sick to stomach Active ZyrTEC rash Active Immunizations Given and Recorded Vaccine Date Status Refusal Reason influenza virus vaccine, inactivated 05/07/23 Jerry rded influenza virus vaccine, inactivated 1 04/06/22 Re corded influenza virus vaccine, inactivated 03/28/21 Jerry rded influenza virus vaccine, inactivated 04/10/19 Jerry rded SARS-CoV-2(COVID-19)mRNA-LNP vac([id number]) 05/07/23 Recorded pneumococcal 23-valent vaccine 2 07/06/22 Given pneumococcal 23-valent vaccine 3 07/03/00 Recorded [id number] 12y+ bivalent booster vax 4 04/06/22 Recorded SARS-CoV-2 (COVID-19) mRNA BNT-162b2 vac 07/14/21 Recorded SARS-CoV-2 (COVID-19) mRNA BNT-162b2 vac 11/04/20 Recorded SARS-CoV-2 (COVID-19) mRNA BNT-162b2 vac 10/14/20 Recorded tetanus-diphtheria toxoids (Td) 5 12/10/20 Given Influenza Virus Vaccine (oldterm) 03/02/20 Recorde d pneumococcal 13-valent vaccine 06/07/16 Recorded tetanus/diphtheria/pertussis, acel(Tdap) 6 07/03/08 Recorded 1Result Comment: NIDA 2Result Comment: [id number] 3Location History: Dr. Lao 4Result Comment: Nida 5Result Comment: [facility] [id number] 6Location History: Dr. Lao Medications acetaminophen 500 [...] 03/24/23 17:19:00 EDT, Route to Pharmacy Electronically, [facility] #[id number], Partial fill upon patientrequest if the prescription is for a schedule II op... Start Date: 03/24/23 Status: Ordered dicyclomine 20 mg oral tablet 1 tablet = 20 mg, By Mouth, 4 times a day, PRN spasm, # 120 tablet, 5 Refills, Maintenance, 04/18/23 11:26:00 EDT, Tablet, [facility] #[id number], Partial fill upon patient request if the [...] 01/26/23 12:33:00 EDT, Route to Pharmacy Electronically, [facility] #[id number], 165, cm, 01/11/23 11:25:00 EDT, Height Start Date: 01/26/23 Stop Date: 01/21/24 Status: Ordered Misc Rx Refills 0, Maintenance, iron, 05/01/23 14:13:00 EDT, Supply Start Date: 05/01/23 Status: Ordered sertraline 50 mg oral tablet 1 tablet, By Mouth, 2 times a day, # 180 tablet, 3 Refills, Maintenance, 03/17/23 10:16:00 EDT, [facility] #[id number], 165, cm, 03/08/23 11:21:00 EDT, Height, 43.1, [...] claudication 1 Confirmed Active Underweight Confirmed Active 24224 CTA: IMPRESSION: 1. 70% stenosis of the [...] Effective Dates Health Status Clinical Service Informant Dermatological disease Discharge Diagnosis 06/20/23 Vital Signs Most recent to oldest [Reference Range]: 1 Height 158.7 cm (06/20/23 2:33 PM) Social History Social History Type Response [...] Safety Implantable Status Assigning Authority Unknown Unknown [id number] Unknown 11/27/26 Unknown Unknown Active Unknown Procedure Provider Procedure Date Device Type Site Repair Hernia Inguinal Open Gavino Dunlap MD 02/22/23 Un known Abdomen Device Identifier Serial Number Lot or Batch Number Manufacturing Date Expiration Date Distinct Identification Code MRI Safety Implantable Status Assigning Authority Unknown Unknown [id number] Unknown 07/30/27 Unknown Unknown Active Unknown Procedure Provider Procedure Date Device Type Site Repair Hernia Ventral Open Gavino Dunlap MD 02/22/23 Unk nown Abdomen Device Identifier Serial Number Lot or Batch Number Manufacturing Date Expiration Date Distinct Identification Code MRI Safety Implantable Status Assigning Authority Unknown Unknown [id number] Unknown 08/30/24 Unknown Unknown Active Unknown Patient Care team information Care Team Personnel Name: Beni Doshi RN Position: [facility] RN Member Role: Primary Care Nurse Name: Kevyn Mckeon MD Position: [facility] Physician - Primary Care Member Role: PCP Address: Address: [address] [place] [id number]- Name: Melissa Chau RN Position: [facility] RN Member Role: Primary Care Nurse Name: Gemini Alfaro Position: [facility] Ad Operations Intern Member Role: Hat Former Name: Ana Lopes RN Position: [facility] RN Member Role: Primary Care Nurse Care Team Related Persons Name: CATY LOCKWOOD Name: MARYCRUZ MANN Name: MARYCRUZ TORRES Name: NO, NONE Name: DAVID KRAFT Address: home [address] [address]
--- NOTE | 2023-10-09 12:48 | PC.NURSE ---
ultrasound at bedside
[2023-10-09 14:43] VITALS: BP 155/75; PULSE 62; RESP 16; TEMP 36.4; O2SAT 98
== END 2023-10-09 14:44 | disposition home or self-care (01) ==
PROVIDERS: Emergency Provider Emergency Medicine; PCP Family Medicine
DX: M62.838 Other muscle spasm (principal); I10 Essential (primary) hypertension; Z88.2 Allergy status to sulfonamides
CPT/HCPCS: 93971; 99282; 99284

== ENCOUNTER 2025-04-09 16:11 | Outpatient (AMB) | payer MEDICARE, SELFPAY ==
--- NOTE | 2025-04-09 16:15 | MHC.OFFWIV ---
Intake Vital Signs 04/09/25 16:16 Height 5 ft 2 in Weight 84 lb BMI 15.4 BP 120/64 Blood Pressure Location Rt brachial Position Sitting Pulse 68 Pulse Source Pulse Oximeter Temp 98.3 F Temp Source Oral Pulse Oximetry (%) 99 Oxygen Delivery Method Room Air Intake Visit Reasons: EP Left arm pain/ hand is numb Intake Note: pt presents with pain and swelling to left inner elbow with hand and finger numbness Patient Tobacco Use Status: Current everyday Tobacco user Allergies Sulfa (Sulfonamide Antibiotics) (SULFA (SULFONAMIDE ANTIBIOTICS)) Allergy (Intermediate, Verified 10/09/23 10:40) ITCHING/RASH fluticasone (From Flonase) Allergy (Mild, Verified 04/09/25 16:20) Unknown sulfadiazine Allergy (Unknown, Verified 10/09/23 10:40) Unknown tree nut (TREE NUT) Adverse Reaction (Intermediate, Verified 10/09/23 10:40) GI UPSET cetirizine (From Zyrtec) Adverse Reaction (Mild, Verified 04/09/25 16:24) nervousness prednisone Adverse Reaction (Mild, Verified 04/09/25 16:24) Dizziness acetaminophen (From PERCOCET) Adverse Reaction (Unknown, Verified 10/09/23 10:40) NAUSEA meperidine (From Demerol) Adverse Reaction (Unknown, Verified 10/09/23 10:40) Nausea oxycodone (Percocet) Adverse Reaction (Unknown, Verified 10/09/23 10:40) Nausea Do you need a note to return to daycare/school/sports/work: No HPI HPI Comments History of Present Illness Details History of Present Illness - The patient is a 74-year-old female presenting with right elbow pain and numbness in the hand. - She underwent vascular surgery in December for leg circulation issues, but continues to experience neuropathy. - The patient had pneumonia, which developed into double pneumonia, leading to significant weight loss. - Elbow pain started after cleaning, with associated numbness in the left hand. - She has been taking lidocaine and Tylenol. - She uses gabapentin for neuropathic pain and has a history of osteoporosis. - She has no trauma or fall. - She has no shoulder pain, arm pain, or hand pain. Physical Exam General: Cooperative, healthy appearing, comfortable, no acute distress and well developed Orientation: Patient oriented x3 Respiratory: Normal respiratory effort and able to speak in complete sentences. Clear to auscultation bilaterally Cardiovascular: Regular rate and rhythm. Normal S1 and S2. Pulses are 2+ on the UE. Skin: No rashes or lesions noted. Multiple bruises noted on the arms. Neuro: Patient oriented x3. Sensation intact. Extremities: No deformity noted. FROM of the left elbow and wrist. TTP of the left medial epicondyle. No TTP of the olecranan or lateral epicondyle. No TTP of the right forearm or wrist. Negative Tinels or phalens noted. Hand geoscientist is intact. Patient was informed and verbally consented to the use of an ambient scribe for clinic note documentation during this visit. [facility] Medical History Chronic pain syndrome Severe major depression Postlaminectomy syndrome Thrombosed hemorrhoids Hypertension Anxiety Surgical History History of bunionectomy History of hammer toe correction History of foot surgery History of D&C History of hand surgery Family History Father Hypertension Heart disease Mother History of lumpectomy Social History Household Members: None [facility] Do you presently have visiting nurse or other home services: No Alcohol intake: current Alcohol intake frequency: does not drink Alcohol type: wine Comment: pt using furnitures instead of walker, pt can be inpatient at times Patient Tobacco Use Status: Current everyday Tobacco user Tobacco use type: Cigarette Cigarettes Per Day: 8 e-Cigarette/Vaping Use: Currently Using Second Hand Smoke Exposure: No service: No Current occupational status: retired Review of Systems Const All systems reviewed & are unremarkable except as noted in HPI and below Physical Exam Vital Signs: Last Vital Signs Temp 98.3 F 04/09/25 16:16 Pulse 68 04/09/25 16:16 BP 120/64 04/09/25 16:16 Pulse Ox 99 04/09/25 16:16 Oxygen Delivery Method Room Air 04/09/25 16:16 BMI result Body Mass Index 15.4 Results Reviewed Results Reviewed: will review the xray in the office when complete Assessment & Plan Assessment & Plan (1) Left elbow pain: Code(s): M25.522 - Pain in left elbow Plan Most likely tendonitis vs arthritis vs bursitis plan - Plan to obtain an x-ray to assess for any bone or joint abnormalities. - Consideration of tendon inflammation as a cause of pain, with lidocaine and Tylenol for symptomatic relief. - wear a sling for comfort - Continued use of gabapentin at night for neuropathic pain management. - will call her with the results - follow up with PCP - advised ortho f/u if pain continues Orders: Orders XR elbow LT min 3V Today M25.522 - Pain in left elbow Coding Level of Care Code Est Pt Level 4 (47126) Diagnoses Left elbow pain M25.522
[2025-04-09 16:16] VITALS: BP 120/64; PULSE 68; TEMP 36.8; O2SAT 99; BMI 15.4
== END 2025-04-09 17:00 | disposition home or self-care (01) ==
PROVIDERS: PCP Family Medicine; Visit Provider Physician Assistant Medical
DX: M25.522 Pain in left elbow (principal)

== ENCOUNTER → 2025-04-09 16:11 | Outpatient (BNVA) | payer MEDICARE, SELFPAY | PROVIDERS: PCP Family Medicine; Visit Provider Physician Assistant Medical | DX: M25.522 Pain in left elbow (principal) | CPT/HCPCS: 99212 ==

== ENCOUNTER 2025-04-10 13:04 | Outpatient (REF) | payer MEDICARE, SELFPAY ==
--- NOTE | ~2025-04-10 | XR_ITS ---
EXAMINATION: XR ELBOW 3 VIEWS LEFT HISTORY: M25.522 - Pain in left elbow COMPARISON: There are no prior studies available for comparison. FINDINGS: Three views of the left elbow are submitted. Osseous mineralization is normal. There is no fracture or dislocation. The joint spaces are preserved. The soft tissues are unremarkable. There is no joint effusion. XR/XR elbow LT min 3V IMPRESSION: Unremarkable examination of the left elbow. Electronically signed by: Shane Berkowitz MD 04/10/2025 01:20 PM EDT
== END 2025-04-10 13:05 | disposition home or self-care (01) ==
LOC: HO.HMGCX 13:04
PROVIDERS: PCP Family Medicine; Visit Provider Physician Assistant Medical
DX: M25.522 Pain in left elbow (principal)
CPT/HCPCS: 73080

== ENCOUNTER → 2025-04-10 13:08 | Outpatient (BNV) | payer MEDICARE, SELFPAY | PROVIDERS: PCP Family Medicine; Visit Provider Radiology Diagnostic Radiology | DX: M25.522 Pain in left elbow (principal) | CPT/HCPCS: 73080 ==

== ENCOUNTER 2025-06-26 21:28 | Emergency (ER) | payer MEDICARE, SELFPAY ==
--- NOTE | ~2025-06-26 | CT_ITS ---
CLINICAL HISTORY: Back Left Flank pain CT abdomen and pelvis with contrast Comparison: None provided Findings: Large hiatal hernia containing portion of the stomach. Lung bases are clear. Heart size is mildly enlarged. Liver, gallbladder, spleen, adrenal glands are unremarkable. Right kidney is ptotic, in the mid right abdomen. There is a 1 cm left renal cyst. No hydronephrosis of either kidney. No bowel obstruction, pneumoperitoneum, or pneumatosis. Appendix not visualized. No ascites. Moderate amount of fecal loading in the colon. Extensive calcified plaquing of the aorta with shelf-like areas of plaque. Severe calcified plaquing of the common iliac arteries, external iliac arteries and common femoral arteries. Uterus and adnexa are unremarkable. Urinary bladder is distended. Previous cement augmentation of L3 compression deformity. Chronic appearing compression deformities of T12, L1, L2, L3 and L4. Old healed S1 sacral fracture. Multilevel degenerative change of the lumbar spine. IMPRESSION: No acute findings. This document has been electronically signed by: Naseem Unger MD on 06/27/2025 02:43:52
--- NOTE | ~2025-06-26 | CT_ITS ---
CLINICAL HISTORY: Back Pain; Pleurisy; Cough CT angiography chest with contrast. 3D Postprocessing. Comparison: None provided Findings: Moderate cardiomegaly. The thoracic aorta is normal caliber. No acute pulmonary embolus. Large hiatal hernia. The lungs are clear. Mild centrilobular emphysema. Chronic appearing compression deformities at T10, T12 and L1. IMPRESSION: 1. No pulmonary emboli. This document has been electronically signed by: Naseem Unger MD on 06/27/2025 02:48:52
[2025-06-26 21:57] VITALS: BP 148/88; PULSE 104; O2SAT 99; BMI 18.3
[2025-06-26 22:24] VITALS: BP 137/56; PULSE 65; RESP 18; O2SAT 97
--- OUTSIDE RECORDS SUMMARY | 2025-06-26 22:32 | XMS_ITS | Encounter Summary ---
Author Organization [facility] Address [address] [place] [address] Care Team Providers Care Carpentry Specialist Name Role Phone Boyd Lao MD Primary Care Provider [phone] Encounter Details Date Type Department Care Team (Late st Contact Info) Description 11/10/2024 Lab Requisition [facility] - Main Lab [address] [email or web address] [address] Salvador Gary MD [address] [place] [address] Essential (primary) hypertension; Lactose intolerance, unspecified; Gastro-esophageal reflux disease without esophagitis Social History Tobacco Use Types Packs/Day Years Used Date Smoking Tobacco: Every Day Smokeless Tobacco: Never Alcohol Use Standard Drinks/Week Comments Yes 0 (1 standard drink = 0.6 oz pur e alcohol) Comments Unknown Sex and Gender Information Value Date Recorded Sex Assigned at Not on file Legal Sex Female 5:16 AM EST Gender Identity Not on file Sexual Orientation Not on file documented as of this encounter Plan of Treatment Not on file documented as of this encounter Visit Diagnoses Diagnosis Essential (primary) hypertension Unspecified essential hypertension Lactose intolerance, unspecified Gastro-esophageal reflux disease without esophagitis documented in this encounter Care Teams Carpentry Specialist Relationship Specialty Start Date End Date Boyd Lao MD [address] [place] [phone] PCP - General Internal Medicine 01/16/17 documented as of this encounter
--- OUTSIDE RECORDS SUMMARY | 2025-06-26 22:32 | XMS_ITS | Clinical Summary ---
Author Organization [address] Address [address] [place] [phone] Phone Care Team Providers Care Medical Device Sales Name Role Phone Boyd Lao MD Primary Care Provider [phone] Social History Tobacco Use Types Packs/Day Years Used Date Smoking Tobacco: Every Day Smokeless Tobacco: Never Alcohol Use Standard Drinks/Week Comments Yes 0 (1 standard drink = 0.6 oz pur e alcohol) Comments Unknown Sex and Gender Information Value Date Recorded Sex Assigned at Not on file Legal Sex Female 5:16 AM EST Gender Identity Not on file Sexual Orientation Not on file Plan of Treatment Health Maintenance Due Date Last Done Comments Zoster Vaccines (1 of 2) 1999 Cholesterol Screening (Lipid Panel) 06/05/2022 Falls Risk Assessment 06/05/2022 Hepatitis C Screening 06/05/2022 Medicare Annual Wellness Visit 06/05/2022 Osteoporosis Screening (Bone Density Screening) 06/05/2022 Social Influencers of Health Screening 06/05/2022 RSV Immunization Adult Patients (1 - 1-dose 75+ series) 2024 Depression Screening 07/03/2024 COVID-19 Vaccine ( season) 2025 04/10/2024, 05/07/2023, 07/14/2021, Additional history exists Influenza Vaccine (#1) 2025 , 05/07/2023, 04/06/2022, Additional history exists Hypertension/CHF/CAD Annual BMP Blood Test 11/07/2025 11/07/2024, 11/04/2024, 10/31/2024, Additional history exists DTaP,Tdap,and Td Vaccines (3 - Td or Tdap) 12/10/2030 12/10/2020, 07/03/2008 Pneumococcal Vaccine: 50+ Years Completed 07/06/2022, 06/07/2016, 07/03/2000 Colorectal Cancer Screening: Stool Based Tests (FOBT/FIT) Discontinued 11/04/2024 HIB Vaccines Aged Out No longer eligi ble based on patient's age to complete this topic HPV Vaccines Aged Out No longer eligi ble based on patient's age to complete this topic Hepatitis A Vaccines Aged Out No long er eligible based on patient's age to complete this topic Hepatitis B Vaccines Aged Out No long er eligible based on patient's age to complete this topic IPV Vaccines Aged Out No longer eligi ble based on patient's age to complete this topic MMR Vaccines Aged Out No longer eligi ble based on patient's age to complete this topic Meningococcal ACWY Vaccine Aged Out N o longer eligible based on patient's age to complete this topic Meningococcal B Vaccine Aged Out No l onger eligible based on patient's age to complete this topic RSV Immunization Patients Under 20 months Aged Out No longer eligible based on patient's age to complete this topic Varicella Vaccines Aged Out No longer eligible based on patient's age to complete this topic Procedures Procedure Name Priority Date/Time Associated Diagnosis Comments BASIC METABOLIC PANEL Routine 11/07/2024 5:20 AM EDT Essential (primary) hypertension Lactose intolerance, unspecified Gastro-esophageal reflux disease without esophagitis OCCULT BLOOD STOOL, GUAIAC Routine 11/04/2024 3:40 AM EDT Abnormal finding of blood chemistry, unspecified from Last 3 Months or Most Recently Relevant to Health Maintenance Results * (ABNORMAL) Basic metabolic panel (11/07/2024 5:20 AM EDT) Sodium 142 133 - 145 mmol/L LAB [facility] Potassium 4.7 3.5 - 5.5 mmol/L LAB CHEMISTRY METHOD 11/07/2024 10:01 AM [facility] Chloride 112(H) 96 - 110 mmol/L LAB CHEMISTRY METHOD 11/07/2024 10:01 AM [facility] CO2 21 21 - 32 mmol/L LAB CHEMISTRY METHOD 11/07/2024 10:01 AM [facility] Anion Gap 9 3 - 11 LAB CHEMISTRY METHOD 11/07/2024 10:01 AM [facility] Glucose 78 70 - 100 mg/dL LAB CHEMISTRY METHOD 11/07/2024 10:01 AM [facility] BUN 17 5 - 25 mg/dL LAB CHEMISTRY METHOD 11/07/2024 10:01 AM [facility] Creatinine 0.86 0.50 - 1.10 mg/dL LAB CHEMISTRY METHOD 11/07/2024 10:01 AM [facility] eGFR 71 >=60 mL/min/1. 73m2 LAB CHEMISTRY METHOD 11/07/2024 10:01 AM [facility] Comment:Calculation based on the Chronic Kidney Disease Epidemiology Collaboration (CKD-EPI) equation refit without adjustment for race. BUN/Creatinine Ratio 19.8 LAB CHEMISTRY METHOD 11/07/2024 10:01 AM [facility] Calcium 8.5 8.5 - 10.5 mg/dL LAB CHEMISTRY METHOD 11/07/2024 10:01 AM [facility] Blood Venous blood specimen / Unknown 11/07/2024 5:20 AM EDT 11/07/2024 8:52 AM EDT us Salvador Gary MD LAB BLOOD ORDERABLES Final Resu lt [facility] [address] [place] [address], * Occult blood stool, guaiac (11/04/2024 3:40 AM EDT) Occult Blood, Stool #1 Negative Negative 11/04/2024 1:[address] [facility] Stool Rectum structure / Unknown Non-blood Collection / Unknown 11/04/2024 3:40 AM EDT 11/04/2024 12:57 PM EDT Salvador Gary MD LAB BODY FLUIDS AND STOOLS TOMASA WEINER Final Result [email or web address] [address] [place] [address], from Last 3 Months or Most Recently Relevant to Health Maintenance Insurance [employer] Advance Directives Documents on File Type Date Recorded Patient Winder Contort Operator Expl anation Health Care Decision (hx) 05/23/2019 AD PATE DIRECTIVE Health Care Decision (hx) 05/23/2019 AD PATE DIRECTIVE Health Care Decision (hx) 05/23/2019 AD PATE DIRECTIVE Health Care Decision (hx) 05/23/2019 AD PATE DIRECTIVE Health Care Decision (hx) 05/23/2019 AD PATE DIRECTIVE Health Care Decision (hx) 05/23/2019 AD PATE DIRECTIVE Health Care Decision (hx) 05/23/2019 AD PATE DIRECTIVE Health Care Decision (hx) 05/23/2019 AD PATE DIRECTIVE Health Care Decision (hx) 05/23/2019 AD PATE DIRECTIVE Health Care Decision (hx) 05/23/2019 AD PATE DIRECTIVE Health Care Decision (hx) 05/23/2019 AD PATE DIRECTIVE Health Care Decision (hx) 05/23/2019 AD PATE DIRECTIVE Health Care Decision (hx) 05/23/2019 AD PATE DIRECTIVE Health Care Decision (hx) 05/23/2019 AD PATE DIRECTIVE Health Care Decision (hx) 05/23/2019 AD PATE DIRECTIVE Care Teams Medical Device Sales Relationship Specialty Start Date End Date Boyd Lao MD [address] [place] [phone] PCP - General Internal Medicine 01/16/17
--- OUTSIDE RECORDS SUMMARY | 2025-06-26 22:33 | XMS_ITS | Continuity of Care Document ---
Author Organization [place] - [facility], [facility] Address [address] [place] [address] Care Team Providers Care Central Supply Worker Name Role Phone ROBIN TONG Primary Care Provider [phone] Assessment Encounter Date Assessment Date Assessment LastModified by Organization Details LastModified Time 05/12/2025 05/12/2025 Bilateral ear canal blockage, worse on the right. Chronic smoking. The ear canals were examined and cleared using suction and instrumentatio n. There is scaling and erythema at the left lobule. I recommended against any digital manipulation. I recommended mupirocin. I do not palpate any abscess that requires drainage. Follow-up was recommended in six months for routine ear cleaning. The patient was counseled on the importance of maintaining ear hygiene and monitoring for any worsening symptoms. Jammie knox Not available 05/14/2025 09:23:27 Plan of Treatment Reminders Order Date Submit Date Provider Last Modified By Organization Details Last Modified Time Details Appointments Establish ed 15 2025 01:30P M MAC VELASQUEZ PA-C Not available Not available Not available Lab None recorded. Referral None recorded. Procedures None recorded. Surgeries None recorded. Imaging None recorded. Medication Orders mupirocin 2 % topical ointment 2024 025 [facility] #[id number], [address] [facility], [place], [place], [phone], 05/12/2025 15:15:23 Patient TargetsNo targets recorded. Patient Instructions Encounter Date Encounter Id Patient Instructions Last Modified By Organization Details Last Modified Time 05/12/2025 [id number] - Apply antibiotic cream to the affected ear canal twice daily. - Avoid using hydrogen peroxide in the ears. - Avoid touching the ear canal. - Follow up in six months for routine ear cleaning. - Monitor for worsening symptoms and report if the condition does not improve. [email or web address] Not available 05/12/2025 15:52:13 Please note: Parts of this encounter note have been generated by AI based on audio conversation. Patient consent was required prior to utilizing this technology. Content review was required prior to finalizing the note. [email or web address] Not available 05/12/2025 15:52:14 Reason for Referral None Reported. Problems Name Problem SNOMED Code Status Onset Date Resolution Date Notes Provider Name and Address Organization Details Recorded Time Abnormal auditory perceptio n 42140621 Active 2018 Other abnormal auditory perceptio ns, bilateral ; Note: Date Diagnosed : 11/27/2018 1:39 PM (H93.293) Not Available [facility] 4 02:17:48 Impacted cerumen of bilateral ears 83801646121 92187 Active 2018 Impacted cerumen, bilateral ; Note: Date Diagnosed : 11/27/2018 1:39 PM (H61.23) KARI MARTIN MD [address] [place] [address], [place], [address] , [facility] 5 15:14:43 Impacted cerumen 96949868 Active 2018 Impacted cerumen; Note: Date Diagnosed : 9 1:23 PM (380.4) Not Available [facility] 4 02:18:31 Sensorine ural hearing loss of bilateral ears 503151232 Active 2020 Sensorine ural hearing loss, bilateral ; Note: Date Diagnosed : 01/05/2021 2:29 PM (H90.3) Not Available [facility] 4 02:16:47 Celluliti s of face 459242653 Active 2024 KARI MARTIN MD [address] [place] [address], [facility] [place], [address] , [facility] 5 15:14:38 Problem Notes None recorded. Medical Equipment None Reported. Allergies Allergen ID Allergen Name Allergen Category Reaction Reaction Severity Criticality Documentation Date Start Date Code Code System Note Provider Name and Address Organization Details Recorded Time 87416 Substance with sulfonami de structure and antibacte rial mechanism of action (substanc e) medicatio n other Not available Not available 11/14/2023 92219 8003 SNOMED React ion: unkno wn, unspe cifie d;; Not Available [facility] 4 00:49:43 Medications Name Sig Start Date Stop Date Status Note LastModified by Organization Details LastModified Time ibuprofen 800 mg tablet 05/12 completed Medicati on ID: [id number] D uration Value: 30 Brand Name: ibuprofe n Send Method: E-Prescr ibed Sub s Allowed: subs OK Medic ationGen ericName : ibuprofe n Not Available Not Available Not Available lisinopri l 20 mg tablet TAKE 1 TABLET BY MOUTH DAILY active Not Available Not Available No t Available sertralin e 100 mg tablet TAKE 1 AND 1/2 (HALF) TABLETS BY MOUTH EVERY DAY 05/12 completed Not Available Not Available Not Available amlodipin e 2.5 mg tablet 05/12 completed Medicati on ID: [id number] D uration Value: 90 Brand Name: amlodipi ne Send Method: E-Prescr ibed Sub s Allowed: subs OK Medic ationGen ericName : amlodipi ne Not Available Not Available Not Available clopidogr el 75 mg tablet TAKE 1 TABLET BY MOUTH DAILY 05/12 completed Not Available Not Available Not Available tramadol 50 mg tablet TAKE 1 TABLET BY MOUTH EVERY 6 HOURS NEEDED FOR PAIN 05/12 completed Not Available Not Available Not Available dicyclomi ne 20 mg tablet TAKE 1 TABLET BY MOUTH FOUR TIMES DAILY NEEDED FOR SPASM active Not Available Not Available No t Available amlodipin e 10 mg tablet TAKE 1 TABLET BY MOUTH DAILY active Not Available Not Available No t Available pantopraz ole 40 mg tablet,de layed release TAKE 1 TABLET BY MOUTH DAILY active Not Available Not Available No t Available esomepraz ole magnesium 40 mg capsule,d elayed release TAKE 1 CAPSULE BY MOUTH EVERY DAY 05/12 completed Not Available Not Available Not Available gabapenti n 300 mg capsule TAKE 1 CAPSULE BY MOUTH TWICE DAILY 05/12 completed Not Available Not Available Not Available sertralin e 25 mg tablet 05/12 completed Medicati on ID: [id number] D uration Value: 30 Brand Name: sertrali ne Send Method: E-Prescr ibed Sub s Allowed: subs OK Speci al Instruct ion: TK 1 T PO BID Medi cationGe nericNam e: sertrali ne Not Available Not Available Not Available aspirin 81 mg tablet Take 1 tablet every day by oral route. active Not Available Not Available No t Available mupirocin 2 % topical ointment APPLY A SMALL AMOUNT TO THE AFFECTED AREA BY TOPICAL ROUTE 3 TIMES PER DAY for 2 weeks 2024 active Not Available Not Available Not Avai lable metoprolo l succinate ER 25 mg tablet,ex tended release 24 hr TAKE 1/2 (HALF) TABLET BY MOUTH EVERY DAY 05/12 completed Not Available Not Available Not Available lorazepam 1 mg tablet Take 1 tablet 3 times a day by oral route. active Not Available Not Available No t Available lisinopri l 40 mg tablet 04/15 completed Medicati on ID: [id number] D uration Value: 90 Brand Name: lisinopr il Send Method: E-Prescr ibed Sub s Allowed: subs OK Medic ationGen ericName : lisinopr il Not Available Not Available Not Available sertralin e 50 mg tablet TAKE 1 TABLET BY MOUTH TWICE DAILY active Not Available Not Available No t Available acetamino phen 500 mg capsule Take 2 capsules every 6 hours by oral route. active Not Available Not Available No t Available dicyclomi ne 10 mg capsule 05/12 completed Medicati on ID: [id number] D uration Value: 30 Brand Name: dicyclom ine Send Method: E-Prescr ibed Sub s Allowed: subs OK Speci al Instruct ion: TK 1 C PO TID Medi cationGe nericNam e: dicyclom ine Not Available Not Available Not Available loperamid e 05/12 completed Medicati on ID: [id number] B rand Name: loperami de Send Method: E-Prescr ibed Sub s Allowed: subs OK Medic ationGen ericName : loperami de Not Available Not Available Not Available Vitals Date Recorded Body height Body mass index (BMI) Body weight Systolic And Diastolic Provider Name and Address Organization Details Last Updated DateTime 05/12/2025 160.02 cm 14.5 kg/m2 44975.57 g 142/68 mm[Hg] Savannah Wooten [place] - [facility] 05/12/2025 14:24:50 Social History None recorded. Functional Status None recorded. Mental Status None recorded. Family History Nothing Reported. Medical History Condition Response Hypertension Y Gynecological HistoryNo gynecological history recorded. Obstetrics History GPAL:G 0 P 0 0 0 0 Past Encounters Encounter ID Performer Location Encounter Start Date Encounter Closed Date Diagnosis/Indication Diagnosis SNOMED-CT Code Diagnosis ICD10 Code Diagnosis IMO Codes Diagnosis Note [id number] KARI MARTIN MD [facility] [address] [address] 05/12/2025 14:14:31 05/12/2025 16:27:05 Cellulitis of face 370829583 L03.211 194 Impacted c erumen of bilateral ears 6325799362 398182 H61.23 398851 Health Concerns Section Related Observation LastModified by Organization Detai ls LastModified Time None Recorded Concern Status LastModified by Organization Details LastModified Time None Recorded Payers Encounter Date Sequence Insurance Name Policy Number Policy Casillas Covered Member ID Casillas Member ID Guarantor Name 05/12/[address] [place] [address] [id number] Kiesha Perez [id number] Kiesha Perez Notes Date Note Type Note Provider Name and Address Organization Details Recorded Time 05/12/2025 text/html Kiesha Perez is a 74-year-old female who presents for bilateral ear canal issues. She reports difficulty hearing and clogged ear canals, which she has attempted to address using hydrogen peroxide without success. She has a history of narrow ear canals and frequent ear blockages requiring cleaning. She has experienced significant health challenges since her last visit in 2020, including hospitalization for double pneumonia, three blood transfusions, and severe muscle and weight loss. She currently weighs approximately 102-104 pounds and is working with a physical therapist to regain muscle mass. She has neuropathy in her leg and foot, which are completely numb, and underwent vascular surgery with stent placement that did not improve her symptoms. She continues to smoke but has reduced her consumption. She is currently taking amlodipine for high blood pressure and has discontinued gabapentin and Tylenol due to pain and discomfort. She expresses a strong desire to improve her hearing to communicate better with her family. KARI MARTIN MD [address] [place] [address], [place], [address], [facility] - [facility] 05/14/2025 09:23:47 OBGyn Episode No OBEpisode recorded.
--- OUTSIDE RECORDS SUMMARY | 2025-06-26 22:33 | XMS_ITS | Patient Health Record ---
Author Organization [facility] Address [address] [place] [address] Care Team Providers Care Sales Market Leader Name Role Phone Boyd Lao MD Primary Care Provider UnavailCollin Woodard Unavailable [phone] Allergies Allergen (clinical drug ingredient) Drug/Non Drug Allergy documented on EMR Reaction Allergy Type Onset Date Status tree nuts (uncoded) Unknown Allergy Active meperidine Demerol nausea Drug Allergy Active acetaminophen / oxycodone Percocet nausea Drug Allergy Active sulfa rash Drug Allergy Active Reason For Referral No Information Medications Medication SIG (Take, Route, Frequency, Duration) Notes Start Date End Date Status zzzCompression Stockings 20-30mm Hg . . .; Duration: . 09/10/2012 Active Amlodipine & Diet Manage Prod 2.5 MG as directed Orally Active Nabumetone 500 MG 1 tablet Orally Twic e a day; Duration: 30 day(s) Active Loperamide HCl 2 MG 1 capsule Orally Twi ce a day; Duration: 30 day(s) Active LORazepam 1 MG 1 tablet Orally Twic e a day Active Pravastatin Sodium A ctive Physical Therapy . . . 2-3x/week; Durat ion: 3-4 weeks 11/14/2012 Active PARoxetine HCl Activ e Gabapentin 400 MG 1 capsule Orally Thr ee times a day; Duration: 30 day(s) Active ProAir HFA 108 (90 Base) MCG/ACT 2 puffs as needed Inhalation every 4 hrs Active Omeprazole Active Lisinopril Active Problems Problem Type SNOMED Code ICD Code Onset Dates Problem Status W/U Status Risk Notes Problem Disorder of joint of ankle and/or foot (944190971) Arthritis - Degenerative (719.97) Active confirmed Problem Neuralgia - Neuritis (729.2) Active confirmed Problem Hallux valgus (860039230) Hallux Valgus (735.0) Active confirmed Problem Hammer toe (054898475) Hammer toe (735.4) Active confirmed Problem Hallux valgus (215841670) Hallux Valgus (735.0) Active confirmed Problem Hammer toe (185623523) Hammer toe (735.4) Active confirmed Problem Pain in limb (91627223) Pain in Limb (729.5) Active confirmed Plan Of Treatment Pending Test Test Name Order Date X ray : Foot, left 2V 06/11/2012 X ray : Foot, left 2V 06/18/2012 X ray : Foot, left 2V 06/21/2012 X ray : Foot, left 2V 07/05/2012 X ray : Foot, left 2V 07/12/2012 X ray : Foot, left 2V 07/19/2012 X ray : Foot, left 2V 08/02/2012 X ray : Foot, left 2V 10/31/2012 X ray : Foot, left 3V 03/23/2012 65377- Debride <25 sq cm 09/10/2012 09921- Debride <25 sq cm 10/31/2012 29017- Debride <25 sq cm 08/02/2012 [id number] SKIN/TISSUE 07/19/2012 [id number] SKIN/TISSUE 07/12/2012 16559, J0702- Neuroma/Injection 11/15/19 13 L4386- Walking Boot 07/05/2012 L4386- Walking Boot 06/21/2012 L4386- Walking Boot 06/18/2012 L4386- Walking Boot 07/19/2012 L4386- Walking Boot 07/12/2012 Insurance Providers Payer Name Payer Address Payer Phone Subscriber Number Group Number Insured Name Patient Relationship to Insured Coverage Start Date Coverage End Date [facility] [address] [facility] [place] [id number] [phone] [id number] Kiesha Perez Self - patient is the insured Medical (General) History Medical History History ICD Code measles hypertension chicken pox Arthritis Barretts esophagus cholesterol Surgical History Surgery Date(Month/Year) left hand surgery bone removed 2010 Marcin bunionectomy and vika coffey r left 06/07/12
--- OUTSIDE RECORDS SUMMARY | 2025-06-26 22:33 | XMS_ITS | Encounter Summary ---
Author Organization [facility] Address [address] [place] [address] Care Team Providers Care Account Resolution Analyst Name Role Phone Boyd Lao MD Primary Care Provider [phone] Encounter Details Date Type Department Care Team (Late st Contact Info) Description 10/29/2024 Lab Requisition [facility] - Main Lab [address] [facility] [place] [address] Salvador Gary MD [address] [place] [address] Essential (primary) hypertension; Peripheral vascular disease, unspecified (CMS/HCC V24); Gastro-esophageal reflux disease without esophagitis Social History [...] on file documented as of this encounter Procedures Procedure Name Priority Date/Time Associated Diagnosis Comments COMPLETE BLOOD COUNT Routine 10/29/2024 5:02 AM EDT Essential (primary) hypertension Peripheral vascular disease, unspecified (CMS/HCC V24) Gastro-esophageal reflux disease without esophagitis COMPREHENSIVE METABOLIC PANEL Routine 10/29/2024 5:02 AM EDT Essential (primary) hypertension Peripheral vascular disease, unspecified (CMS/HCC V24) Gastro-esophageal reflux disease without esophagitis documented in this encounter Results * (ABNORMAL) Comprehensive metabolic panel (10/29/2024 5:02 AM EDT) Sodium 138 133 - 145 mmol/L LAB CHEMISTRY METHOD 10/29/2024 12:29 PM [facility] Potassium 4.7 3.5 - 5.5 mmol/L LAB CHEMISTRY METHOD 10/29/2024 12:29 PM [facility] Chloride 104 96 - 110 mmol/L LAB CHEMISTRY METHOD 10/29/2024 12:29 PM [facility] CO2 24 21 - 32 mmol/L LAB CHEMISTRY METHOD 10/29/2024 12:29 PM [facility] Anion Gap 10 3 - 11 LAB CHEMISTRY METHOD 10/29/2024 12:29 PM [facility] Glucose 92 70 - 100 mg/dL LAB CHEMISTRY METHOD 10/29/2024 12:29 PM [facility] BUN 15 5 - 25 mg/dL LAB CHEMISTRY METHOD 10/29/2024 12:29 PM [facility] Creatinine 0.95 0.50 - 1.10 mg/dL LAB CHEMISTRY METHOD 10/29/2024 12:29 PM [facility] eGFR 63 >=60 mL/min/1. 73m2 LAB CHEMISTRY METHOD 10/29/2024 12:29 PM [facility] Comment:Calculation based on the Chronic Kidney Disease Epidemiology Collaboration (CKD-EPI) equation refit without adjustment for race. BUN/Creatinine Ratio 15.8 LAB CHEMISTRY METHOD 10/29/2024 12:29 PM [facility] Calcium 8.4(L) 8.5 - 10.5 mg/dL LAB CHEMISTRY METHOD 10/29/2024 12:29 PM [facility] AST (SGOT) 30 10 - 42 unit/L LAB CHEMISTRY METHOD 10/29/2024 12:29 PM [facility] ALT (SGPT) 22 10 - 60 unit/L LAB CHEMISTRY METHOD 10/29/2024 12:29 PM EDT [facility] Alkaline Phosphatase 132(H) 42 - 121 unit/L LAB [facility] Total Protein 6.2 6.0 - 8.0 g/dL LAB CHEMISTRY METHOD 10/29/2024 12:29 PM EDT [facility] Albumin 3.0(L) 3.2 - 5.0 g/dL LAB CHEMISTRY METHOD 10/29/2024 12:29 PM EDT [facility] Total Bilirubin 0.5 0.0 - 1.4 mg/dL LAB CHEMISTRY METHOD 10/29/2024 12:29 PM [facility] Blood Venous blood specimen / Unknown Venipuncture / Unknown 10/29/2024 5:02 AM EDT 10/29/2024 10:36 AM EDT us Salvador Gary MD LAB BLOOD ORDERABLES Final Resu lt [facility] [address] [place] [address], * (ABNORMAL) Complete blood count (10/29/2024 5:02 AM EDT) WBC 7.2 4.8 - 10.8 K/mcL LAB HEMETOLOGY METHOD 10/29/2024 11:56 AM EDT [facility] RBC 2.40(L) 3.80 - 4.80 M/[facility] LAB HEMETOLOGY METHOD 10/29/2024 11:56 AM EDT [facility] Hemoglobin 8.0(L) 11.5 - 16.0 g/dL LAB HEMETOLOGY METHOD 10/29/2024 11:56 AM T [facility] Hematocrit 25.4(L) 35.0 - 47.0 % LAB HEMETOLOGY METHOD 10/29/2024 11:56 AM EDT [facility] MCV 105.0(H) 79.0 - 98.0 FL LAB HEMETOLOGY METHOD 10/29/2024 11:56 AM EDT [facility] MCH 33.1(H) 27.0 - 32.0 pcg LAB HEMETOLOGY METHOD 10/29/2024 11:56 AM EDT [facility] MCHC 31.5(L) 32.0 - 37.0 g/dL LAB HEMETOLOGY METHOD 10/29/2024 11:56 AM EDT [facility] RDW 15.8(H) 11.0 - 15.0 % LAB HEMETOLOGY METHOD 10/29/2024 11:56 AM T [facility] Platelets 274 130 - 400 K/mcL LAB HEMETOLOGY METHOD 10/29/2024 11:56 AM EDT [facility] MPV 11.1(H) 7.0 - 11.0 FL LAB HEMETOLOGY METHOD 10/29/2024 11:56 AM EDT [facility] NRBC 0.0 <1.0 % LAB HEMETOLOGY METHOD 10/29/2024 11:56 AM T [facility] NRBC Absolute 0.00 <0.10 K/mcL LAB HEMETOLOGY METHOD 10/29/2024 11:56 AM T [facility] Blood Venous blood specimen / Unknown Venipuncture / Unknown 10/29/2024 5:02 AM EDT 10/29/2024 10:36 AM EDT us Salvador Gary MD LAB BLOOD ORDERABLES Final Resu lt [facility] [address] [place] [address], documented in this encounter Visit Diagnoses Diagnosis Essential (primary) hypertension Unspecified essential hypertension Peripheral vascular disease, unspecified (CMS/HCC V24) Peripheral vascular disease, unspecified Gastro-esophageal reflux disease without esophagitis documented in this encounter Care Teams Account Resolution Analyst Relationship Specialty Start Date End Date Boyd Lao MD [address] [place] [phone] PCP - General Internal Medicine 01/16/17 documented as of this encounter
--- OUTSIDE RECORDS SUMMARY | 2025-06-26 22:33 | XMS_ITS | Encounter Summary ---
Author Organization [facility] Address [address] [place] [address] Care Team Providers Care Route Driver Coin Machines Name Role Phone Boyd Lao MD Primary Care Provider [phone] Encounter Details Date Type Department Care Team (Late st Contact Info) Description 11/04/2024 Lab Requisition [facility] - Main Lab [address] [facility] [address] Salvador Gary MD [address] [place] [address] Abnormal finding of blood chemistry, unspecified Social History Tobacco Use Types Packs/Day Years [...] Procedure Name Priority Date/Time Associated Diagnosis Comments OCCULT BLOOD STOOL, GUAIAC Routine 11/04/2024 3:40 AM EDT Abnormal finding of blood chemistry, unspecified documented in this encounter Results * Occult blood stool, guaiac (11/04/2024 3:40 AM EDT) Occult Blood, Stool #1 Negative Negative 11/04/2024 1:45 PM EDT [facility] Stool Rectum structure / Unknown Non-blood Collection / Unknown 11/04/2024 3:40 AM EDT 11/04/2024 12:57 PM EDT us Salvador Gary MD LAB BODY FLUIDS AND STOOLS TOMASA WEINER Final Result [facility] [address] [place] [address], documented in this encounter Visit Diagnoses Diagnosis Abnormal finding of blood chemistry, unspecified documented in this encounter Care Teams Route Driver Coin Machines Relationship Specialty Start Date End Date Boyd Lao MD [address] [place] [phone] PCP - General Internal Medicine 01/16/17 documented as of this encounter
--- OUTSIDE RECORDS SUMMARY | 2025-06-26 22:33 | XMS_ITS | Data Portability ---
Author Organization [place] [facility] Address [address] [place] [phone] Care Team Providers Care Air Conditioning Unit Tester Name Role Phone ROBIN TONG Primary Care Provider Assessment Encounter Date Assessment Date Assessment LastModified by Organization Details LastModified Time 04/23/2020 04/23/2020 Overview/History : 69yo female with complaints of nasal drainage and sore throat. She complained of dull headache and sinus pain over the past 3 weeks as well as decreased appetite. She also reports a bump on the L side of her anus she would like looked at. She has a PMHx of COPD, depression/anxie ty, high cholesterol, HTN, IBS w/diarrhea and Barretts esophagus. She has had no fevers, or chills. Exam: Pt is alert, non toxic appearing, ear canals clear without evidence of infection. No erythema/ exudate noted in oropharynx, moist mucous membranes, no lymphadenopathy. Normal heart sounds. LSCTA, no increased work of breathing. Small bump noted outside of anus, no redness, warmth, drainage or signs of infection. DDx considered, but not limited to: Allergic rhinitis likely given clear sputum, and reports of PND, clear lung sounds, throat without erythema or exudate. Sinusitis considered but sinuses nontender to palpation,, afebrile, no signs of infection. Pneumonia considered given cough, but lung sounds clear, oxygen saturation 99% on RA. Anal bump- hemorrhoid considered but did not appear to be red/inflamed, folliculitis considered, rectal abscess considered, area non tender, non erythematous no drainage noted. Work up/Results: PE only. Plan/Discussion: Discussed with patient she likely has seasonal allergies and allergic rhinitis. Recommended taking Zyrtec daily during allergy season, staying hydrated, resting and smoking cessation. Discussed taking a nasal decongestant however patient declined because she doesn't like the side effects. Discussed if she develops worsening symptoms to call PCP. Discussed if she develops high fever, chest pain or SOB to go to ER. Discussed following up with health club attendant to evaluate anal bump. Pt verbalized understanding of plan. In order to obtain further information and compare any laboratory results/values, I have accessed old patient records. This information was pertinent in my medical decision making today. Proper Personal Protective Equipment (PPE), including gloves, eye protection and masks were donned and doffed appropriately and all equipment cleaned using approved technique with germicidal disposable wipes prior to and after care of this patient according to [facility]'s infection prevention protocols. Time On Scene with Patient: 00:35:53 This patient was seen, treated and evaluated by my colleague, Pinky CREWS. Clinical decision making and documentation was done together and my oversight was for training and instructional purposes. I agree with their assessment and plan. [email or web address] Not available 04/23/2020 18:04:35 Plan of Treatment Reminders Order Date Submit Date Provider Last Modified By Organization Details Last Modified Time Details Appointments None recorded . Lab None recorded . Referral None recorded . Procedures None recorded . Surgeries None recorded . Imaging None recorded . Medication Orders Zyrtec 10 mg tablet INTERFACE Not available 0 14:54:43 Patient TargetsNo targets recorded. Patient Instructions Encounter Date Encounter Id Patient Instructions Last Modified By Organization Details Last Modified Time 04/23/2020 [id number] You called today for sinus pain, sore throat and cough. Your throat did not appear red, no signs of infection. You have symptoms consistent with allergies. Zyrtec, decongestants may help. Stay hydrated. You also reported a small bump on/near your anus, this does not appear infected, please continue to monitor, if it gets bigger, starts to drain or becomes painful call PCP, otherwise make appointment with a INSULATION APPLICATOR for further evaluation. Sinusitis/rhinitis Instructions Basic Information Sinusitis is an inflammation of the lining of the sinuses. Sinuses are lined with mucous membranes and are filled with air. When sinuses become blocked, fluid can back up within sinuses and this creates a condition where the sinuses become swollen and can cause pain and other symptoms. Sometimes, this will allow germs such as viruses, bacteria and mold to grow and cause infection. Sinuses can become blocked due to the common cold, environmental allergies, deformities such as nose injuries or deviated septum, or growths such as polyps. Symptoms include facial pain and pressure, nasal discharge, ear pressure, having to clear the throat often, dental pain and diminished sense of smell and taste. At times fever and bad breath occur. Most cases of sinusitis (90-98 %) are viral. True bacterial sinusitis is actually quite rare. A popular belief is that is your nasal discharge is green, then it is bacterial and you need an antibiotic. Antibiotics are usually not indicated unless the following is present: symptoms last for 10 days of more and are not improving fever of at least 102 degrees facial pain that is constant for 3-4 days in a row a typical cold resolves after one week and then sudden return of symptoms with increased nasal discharge, headache and sinus pressure Instructions Medications: Zyrtec Decongestants: Sudafed [id number] decongestants such as sudafed are helpful. You should not use these for prolonged periods of time and they may not be contraindicated due to drug interactions with your regular medications or if you have medical problems such as high blood pressure. Ask your CHARGING BOARD OPERATOR. decongestant sprays such as Afrin and Philip-synephrine may also help your symptoms. However, if theses are used for over 3 days in a row, the congestion can actually get worse when you stop using them. So, use sparingly. If you have high blood pressure, your CHARGING BOARD OPERATOR may not recommend use. nasal steroid drops/spray These MAY help decrease the inflammation in the mucous membrane lining of the sinuses (there is no strong evidence to support this claim). They work best with regular use while you have your symptoms. They also work best if used a few minutes after sinus irrigation treatment (see below) Pain relief: Ibuprofen and Tylenol may be used for comfort. The maximum dose of Tylenol for adults is 4000 mg/day (or 2 extra strength tablets 4 times per day) and the recommended dose of Ibuprofen for adults 400 mg every 6 hours. Both of these medicines work best if you take them regularly for 3 days. Please follow the recommended dosage instructions on the bottle. Antibiotics: If your provider prescribed these for you, be sure that you complete the whole course. Self Care: Sinus irrigations: Obtain an ear bulb syringe from the pharmacy (a typical nose syringe, used often for infants, is too small). Cut the tip of the syringe so that it can fit snuggly in your nostril. Mix a cup of warm water with a teaspoon of non-iodized table salt and generous pinch of baking soda. Draw up some of the solution into the syringe. Plug one side of your nose while you insert the bulb syringe into the other side. Squeeze the syringe firmly but gently while you b reathe in the solution through your nose. Alternate both sides until you complete the cup of solution. Do this 2-4 times per day. After each irrigation, be sure to clean the bulb syringe in a dilute bleach solution and rinse well. Local heat: Moisten a washcloth and place this over your sinuses (cheeks and around the eyes). Over the washcloth, place a heating pad set on low. Do this for 20 minutes 4-6 times per day Hydration: drink eight, 8 oz. glasses of clear liquid per day Follow up: See your regular MD or Ear Nose and Throat doctor (if recommended by your provider) within 10 days for follow up. Seek Care Immediately if you: -develop a rash -notice significant redness or swelling around your eye -have fever that does not respond to tylenol/ibuprofen or remains >101.4 (adults) > 100.4 (children) for greater than 3 days -have a stiff neck or severe headache If you develop any new or worsening symptoms and need after hours care, please go to nearest ER and/or call 911. If you have additional concerns or develop a change in your condition between 8am-10pm, please call [facility] at [phone] to help navigate your care. [email or web address] Not available 04/23/2020 14:53:40 Reason for Referral None Reported. Procedures Surgical History Date Name Laterality Status Provider Name and Address Organization Details Recorded Time 04/23/20 20 Medication Review completed ACE VENEGAS NP [facility] [place] [address], [place], [address], [place] [facility] 04/23/2020 17:18:52 Imaging Results None recorded. Procedure Notes None recorded. Medical Equipment None Reported. Allergies Allergen ID Allergen Name Allergen Category Reaction Reaction Severity Criticality Documentation Date Start Date Code Code System Note Provider Name and Address Organization Details Recorded Time 018669 Substance with sulfonami de structure and antibacte rial mechanism of action (substanc e) medicatio n Not available Not available Not available 04/23/2020 57600 8003 SNOMED ACETRACEE VENEGAS , CHARGING BOARD OPERATOR [address], [facility] [place] [place], [address], [place] [facility] 0 14:16:53 993845 Product containin g penicilli n (product) medicatio n Not available Not available Not available 04/23/2020 14411 8001 SNOMED ACETRACEE VENEGAS , CHARGING BOARD OPERATOR [address], [facility] [place] [place], [address], [place] [facility] 0 14:17:12 271002 oxycodone medicatio n nausea Not available Not available 04/23/2020 7804 RxNorm ACE VENEGAS , CHARGING BOARD OPERATOR [address], [facility] [place], [address], [place] [facility] 0 14:17:29 Medications Name Sig Start Date Stop Date Status Note LastModified by Organization Details LastModified Time amoxicillin 500 mg capsule 04/23 completed Not Available Not Available Not Available cetirizine 10 mg tablet TK 1 T PO D active Not Available Not Available No t Available ibuprofen 800 mg tablet active Not Available Not Available No t Available lisinopril 20 mg tablet active Not Available Not Available No t Available penicillin V potassium 500 mg tablet 04/23 completed Not Available Not Available Not Available amlodipine 2.5 mg tablet active Not Available Not Available No t Available pantoprazole 40 mg tablet,delayed release active Not Available Not Available Not Available sertraline 25 mg tablet active Not Available Not Available No t Available lorazepam 1 mg tablet active Not Available Not Available Not Available lisinopril 40 mg tablet 04/23 completed Not Available Not Available Not Available dicyclomine 10 mg capsule TK 2 CS PO TID active Not Available Not Available No t Available oxycodone 5 mg tablet TK 1 T PO Q 4 TO 6 H PRN FOR PAIN 04/23 completed Not Available Not Available Not Available Fluzone High-Dose Quad (PF) 240 mcg/0.7 mL IM syringe 04/23 completed Not Available Not Available Not Available Vitals Date Recorded Heart rate Oxygen saturation Body temperature Respiratory rate Systolic And Diastolic Provider Name and Address Organization Details Last Updated DateTime 0 68 /min 99 % 97.6 [degF] 18 /min 144/78 mm[Hg] Not Available [facility] 0 14:28:06 Social History Question Answer Notes LastModified by Organizat ion Details LastModified Time Tobacco Smoking Status Current Every Day Smoker ACE VENEGAS, SABIHA [address], [place], [address], [place] [facility] 04/23/2020 14:27:36 Do You Have An Advance Directive? No [email or web address] Information not available 04/23/2020 What Is Your Code Status? Full Code [email or web address] Information not available 04/23/2020 Within The Past 12 Months, Has It Happened That The Food You Bought Just Didn't Last And You Didn't Have Money To Get More. No [email or web address] Information not available 04/23/2020 Within The Past 12 Months, Have You Worried That Your Food Would Run Out Before You Got Money To Buy More. No Information not available 04/23/2020 Fall Risk: Do You Feel Unsteady When Standing Or Walking? No [email or web address] Information not available 04/23/2020 We Know That How And When People Interact With Friends And Family Can Be Very Different From Person To Person. How Often Do You Have The Opportunity To See Or Talk To People That You Care About And Feel Close To? (Ex: Talking To Friends On The Phone Or Visiting Friends Or Family Or Going To Latter-Day Or Club Meetings) 1 Or 2 Times Per Week [email or web address] Information not available 04/23/2020 Excessive Alcohol Or Drug Use No [email or web address] Information not available 04/23/2020 We Know From Many Of Our Patients That Covering All Of Their Costs Can Be Difficult At Times. This Can Cause Stress And Impact Health. In The Past Year, Have You Been Unable To Get Any Of The Following When It Was Really Needed? No [email or web address] Information not available 04/23/2020 What Is Your Housing Situation Today? I Have Housing [email or web address] Information not available 04/23/2020 Would You Like Help Connecting To Resources? None [email or web address] Information not available 04/23/2020 How Much Tobacco Do You Smoke? 0.5 PPD [email or web address] Information not available 04/23/2020 Sex: Unknown Functional Status None recorded. Mental Status None recorded. Family History Relationship Description Onset Age of this Age Resolved Age Notes LastModified by Organization Details LastModified Time Father Coronary arterioscler osis [email or web address] Not available 14:29:49 Medical History Condition Response Diabetes N Coronary Artery Disease N High Cholesterol Y Pulmonary Embolism N Cancer N Stroke N Hypertension Y Depression Y COPD Y Asthma N Kidney Disease N Gynecological HistoryNo gynecological history recorded. 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 F43.29 Health Concerns Section Related Observation LastModified by Organization Detai ls LastModified Time None Recorded Concern Status LastModified by Organization Details LastModified Time None Recorded Advance Directives Directive N: Payers Insurance Date Sequence Insurance Name Policy Number Policy Casillas Covered Member ID Casillas Member ID Guarantor Name 04/22/2020 1 [employer] - MEDICARE ADVANTAGE PLAN (MEDICARE REPLACEMENT HMO) [id number] 1 Kiesha Perez [id number] Kiesha Perez 04/22/2020 1 *SELF PAY* Kiesha Perez [id number] Kiesha Perez Notes Date Note Type Note Provider Name and Address Organization Details Recorded Time 04/23/2020 text/html 69yo female who is new to [facility] called with complaints of nasal drainage and sore throat. She also reports a bump on the L side of her anus she would like looked at. She has a PMHx of COPD, depression/anxie ty, high cholesterol, HTN, IBS w/diarrhea and Barretts esophagus. She reports these symptoms developed over the past 3 weeks. She denies any fevers. She has had a cough with clear sputum. ACE VENEGAS NP [address], [place], [address], [place] [facility] 04/23/2020 18:04:41 OBGyn Episode No OBEpisode recorded.
--- OUTSIDE RECORDS SUMMARY | 2025-06-26 22:33 | XMS_ITS | Encounter Summary ---
Author Organization [facility] Address [address] [place] [address] Care Team Providers Care Studio Coordinator Name Role Phone Boyd Lao MD Primary Care Provider [phone] Encounter Details Date Type Department Care Team (Late st Contact Info) Description 11/02/2024 Lab Requisition [facility] - Main Lab 299 [facility] [place] [address] Salvador Gary MD [address] [place] [address] Essential (primary) hypertension; Lactose intolerance, unspecified; Gastro-esophageal reflux disease without esophagitis; Anemia, unspecified Social History Tobacco Use Types Packs/Day [...] Procedure Name Priority Date/Time Associated Diagnosis Comments VITAMIN B12 AND FOLATE Routine 5:32 AM EDT Essential (primary) hypertension Lactose intolerance, unspecified Gastro-esophageal reflux disease without esophagitis Anemia, unspecified IRON AND TIBC Routine 11/04/2024 5:32 AM EDT Essential (primary) hypertension Lactose intolerance, unspecified Gastro-esophageal reflux disease without esophagitis Anemia, unspecified COMPLETE BLOOD COUNT Routine 11/04/2024 5:32 AM EDT Essential (primary) hypertension Lactose intolerance, unspecified Gastro-esophageal reflux disease without esophagitis Anemia, unspecified FERRITIN Routine 11/04/2024 5:32 AM EDT Essential (primary) hypertension Lactose intolerance, unspecified Gastro-esophageal reflux disease without esophagitis Anemia, unspecified COMPREHENSIVE METABOLIC PANEL Routine 11/04/2024 5:32 AM EDT Essential (primary) hypertension Lactose intolerance, unspecified Gastro-esophageal reflux disease without esophagitis Anemia, unspecified documented in this encounter Results * (ABNORMAL) Comprehensive metabolic panel (11/04/2024 5:32 AM EDT) Sodium 141 133 - 145 mmol/L LAB CHEMISTRY METHOD 11/04/2024 9:20 AM [facility] Potassium 4.8 3.5 - 5.5 mmol/L LAB CHEMISTRY METHOD 11/04/2024 9:20 AM [facility] Chloride 113(H) 96 - 110 mmol/L LAB CHEMISTRY METHOD 11/04/2024 9:20 AM [facility] CO2 18(L) 21 - 32 mmol/L LAB CHEMISTRY METHOD 11/04/2024 9:20 AM [facility] Anion Gap 10 3 - 11 LAB CHEMISTRY METHOD 11/04/2024 9:20 AM [facility] Glucose 81 70 - 100 mg/dL LAB CHEMISTRY METHOD 11/04/2024 9:20 AM [facility] BUN 17 5 - 25 mg/dL LAB CHEMISTRY METHOD 11/04/2024 9:20 AM [facility] Creatinine 0.94 0.50 - 1.10 mg/dL LAB CHEMISTRY METHOD 11/04/2024 9:20 AM [facility] eGFR 63 >=60 mL/min/1. 73m2 LAB CHEMISTRY METHOD 11/04/2024 9:20 AM [facility] Comment:Calculation based on the Chronic Kidney Disease Epidemiology Collaboration (CKD-EPI) equation refit without adjustment for race. BUN/Creatinine Ratio 18.1 LAB CHEMISTRY METHOD 11/04/2024 9:20 AM [facility] Calcium 8.1(L) 8.5 - 10.5 mg/dL LAB CHEMISTRY METHOD 11/04/2024 9:20 AM [facility] AST (SGOT) 20 10 - 42 unit/L LAB CHEMISTRY METHOD 11/04/2024 9:20 AM [facility] ALT (SGPT) 15 10 - 60 unit/L LAB CHEMISTRY METHOD 11/04/2024 9:20 AM [facility] Alkaline Phosphatase 115 42 - 121 unit/L LAB CHEMISTRY METHOD 11/04/2024 9:20 AM [facility] Total Protein 5.8(L) 6.0 - 8.0 g/dL LAB CHEMISTRY METHOD 11/04/2024 9:20 AM [facility] Albumin 2.6(L) 3.2 - 5.0 g/dL LAB CHEMISTRY METHOD 11/04/2024 9:20 AM [facility] Total Bilirubin 0.3 0.0 - 1.4 mg/dL LAB CHEMISTRY METHOD 11/04/2024 9:20 AM [facility] Blood Venous blood specimen / Unknown Venipuncture / Unknown 11/04/2024 5:32 AM EDT 11/04/2024 8:30 AM EDT us Salvador Gary MD LAB BLOOD ORDERABLES Final Resu lt [facility] [address] [place] [address], * (ABNORMAL) Iron and TIBC (11/04/2024 5:32 AM EDT) Iron 33(L) 40 - 150 mcg/dL LAB CHEMISTRY METHOD 11/04/2024 9:20 AM EDT [facility] TIBC 236(L) 250 - 450 mcg/dL LAB CHEMISTRY METHOD 11/04/2024 9:20 AM EDT [facility] Iron Saturation 14(L) 15 - 50 % LAB CHEMISTRY METHOD 11/04/2024 9:20 AM EDT [facility] Blood Venous blood specimen / Unknown Venipuncture / Unknown 11/04/2024 5:32 AM EDT 11/04/2024 8:30 AM EDT us Salvador Gary MD LAB BLOOD ORDERABLES Final Resu lt Performing Organization Address City/[facility]/ZIP Co de Phone Number [facility] [address] [place] [address], [place] [phone] * Ferritin (11/04/2024 5:32 AM EDT) Ferritin 216 8 - 252 ng/mL LAB CHEMISTRY METHOD 11/04/2024 9:42 AM EDT [facility] Blood Venous blood specimen / Unknown Venipuncture / Unknown 11/04/2024 5:32 AM EDT 11/04/2024 8:30 AM EDT us Salvador Gary MD LAB BLOOD ORDERABLES Final Resu lt [facility] [address] [place] [address], [place] [phone] * Vitamin B12 and folate (11/04/2024 5:32 AM EDT) Vitamin B-12 575 250 - 900 pcg/mL LAB CHEMISTRY METHOD 11/04/2024 9:42 AM EDT [facility] Folate 8.9 2.8 - 17.0 ng/ml LAB CHEMISTRY METHOD 11/04/2024 9:42 AM EDT [facility] Blood Venous blood specimen / Unknown Venipuncture / Unknown 11/04/2024 5:32 AM EDT 11/04/2024 8:30 AM EDT Salvador Gary MD LAB BLOOD ORDERABLES Final Resu lt [facility] [address] [place] [address], * (ABNORMAL) Complete blood count (11/04/2024 5:32 AM EDT) WBC 7.5 4.8 - 10.8 K/mcL LAB HEMETOLOGY METHOD 11/04/2024 9:29 AM [facility] RBC 2.30(L) 3.80 - 4.80 M/mcL LAB HEMETOLOGY METHOD 11/04/2024 9:29 AM [facility] Hemoglobin 7.1(L) 11.5 - 16.0 g/dL LAB HEMETOLOGY METHOD 11/04/2024 9:29 AM [facility] Hematocrit 23.6(L) 35.0 - 47.0 % LAB HEMETOLOGY METHOD 11/04/2024 9:29 AM [facility] MCV 104.0(H) 79.0 - 98.0 FL LAB HEMETOLOGY METHOD 11/04/2024 9:29 AM [facility] MCH 31.3 27.0 - 32.0 pcg LAB HEMETOLOGY METHOD 11/04/2024 9:29 AM [facility] MCHC 30.1(L) 32.0 - 37.0 g/dL LAB HEMETOLOGY METHOD 11/04/2024 9:29 AM [facility] RDW 16.4(H) 11.0 - 15.0 % LAB HEMETOLOGY METHOD 11/04/2024 9:29 AM [facility] Platelets 417(H) 130 - 400 K/mcL LAB HEMETOLOGY METHOD 11/04/2024 9:29 AM EDT [facility] MPV 10.6 7.0 - 11.0 FL LAB HEMETOLOGY METHOD 11/04/2024 9:29 AM EDT [facility] NRBC 0.0 <1.0 % [facility] 11/04/2024 9:29 AM EDT [facility] NRBC Absolute 0.00 <0.10 K/mcL [facility] 11/04/2024 9:29 AM EDT [facility] Blood Venous blood specimen / Unknown Venipuncture / Unknown 11/04/2024 5:32 AM EDT 11/04/2024 8:24 AM EDT us Salvador Gary MD LAB BLOOD ORDERABLES Final Resu lt [facility] [address] [place] [address], documented in this encounter Visit Diagnoses Diagnosis Essential (primary) hypertension Unspecified essential hypertension Lactose intolerance, unspecified Gastro-esophageal reflux disease without esophagitis Anemia, unspecified documented in this encounter Care Teams Studio Coordinator Relationship Specialty Start Date End Date Boyd Lao MD [address] [place] [phone] PCP - General Internal Medicine 01/16/17 documented as of this encounter
--- OUTSIDE RECORDS SUMMARY | 2025-06-26 22:33 | XMS_ITS | Encounter Summary ---
Author Organization [facility] Address [address] [place] [address] Care Team Providers Care Aviation Electrician Name Role Phone Boyd Lao MD Primary Care Provider [phone] Encounter Details Date Type Department Care Team (Late st Contact Info) Description 10/30/2024 Lab Requisition [facility] - Main Lab 299 [facility] [place] [address] Salvador Gary MD [address] [place] [address] Essential (primary) hypertension; Lactose intolerance, [...] Associated Diagnosis Comments COMPLETE BLOOD COUNT Routine 10/31/2024 6:38 AM EDT Essential (primary) hypertension Lactose intolerance, unspecified Gastro-esophageal reflux disease without esophagitis BASIC METABOLIC PANEL Routine 10/31/2024 6:38 AM EDT Essential (primary) hypertension Lactose intolerance, unspecified Gastro-esophageal reflux disease without esophagitis documented in this encounter Results * (ABNORMAL) Basic metabolic panel (10/31/2024 6:38 AM EDT) Sodium 137 133 - 145 mmol/L LAB CHEMISTRY METHOD 10/31/2024 10:21 AM [facility] Potassium 4.0 3.5 - 5.5 mmol/L LAB CHEMISTRY METHOD 10/31/2024 10:21 AM [facility] Chloride 106 96 - 110 mmol/L LAB CHEMISTRY METHOD 10/31/2024 10:21 AM [facility] CO2 23 21 - 32 mmol/L LAB CHEMISTRY METHOD 10/31/2024 10:21 AM [facility] Anion Gap 8 3 - 11 LAB CHEMISTRY METHOD 10/31/2024 10:21 AM [facility] Glucose 96 70 - 100 mg/dL LAB CHEMISTRY METHOD 10/31/2024 10:21 AM [facility] BUN 18 5 - 25 mg/dL LAB CHEMISTRY METHOD 10/31/2024 10:21 AM [facility] Creatinine 0.95 0.50 - 1.10 mg/dL LAB CHEMISTRY METHOD 10/31/2024 10:21 AM [facility] eGFR 63 >=60 mL/min/1. 73m2 LAB CHEMISTRY METHOD 10/31/2024 10:21 AM [facility] Comment:Calculation based on the Chronic Kidney Disease Epidemiology Collaboration (CKD-EPI) equation refit without adjustment for race. BUN/Creatinine Ratio 18.9 LAB CHEMISTRY METHOD 10/31/2024 10:21 AM [facility] Calcium 8.1(L) 8.5 - 10.5 mg/dL LAB CHEMISTRY METHOD 10/31/2024 10:21 AM [facility] Blood Venous blood specimen / Unknown Venipuncture / Unknown 10/31/2024 6:38 AM EDT 10/31/2024 9:28 AM EDT Salvador Gary MD LAB BLOOD ORDERABLES Final Resu lt [facility] [address] [place] [address], * (ABNORMAL) Complete blood count (10/31/2024 6:38 AM EDT) [facility] Signature WBC 9.9 4.8 - 10.8 K/mcL LAB HEMETOLOGY METHOD 10/31/2024 10:41 AM EDT [facility] RBC 2.40(L) 3.80 - 4.80 M/mcL LAB HEMETOLOGY METHOD 10/31/2024 10:41 AM EDT [facility] Hemoglobin 7.6(L) 11.5 - 16.0 g/dL LAB HEMETOLOGY METHOD 10/31/2024 10:41 AM EDT [facility] Hematocrit 24.9(L) 35.0 - 47.0 % LAB HEMETOLOGY METHOD 10/31/2024 10:41 AM EDT [facility] MCV 105.1(H) 79.0 - 98.0 FL LAB HEMETOLOGY METHOD 10/31/2024 10:41 AM EDT [facility] MCH 32.1(H) 27.0 - 32.0 pcg LAB HEMETOLOGY METHOD 10/31/2024 10:41 AM EDT [facility] MCHC 30.5(L) 32.0 - 37.0 g/dL LAB HEMETOLOGY METHOD 10/31/2024 10:41 AM EDT [facility] RDW 16.1(H) 11.0 - 15.0 % LAB HEMETOLOGY METHOD 10/31/2024 10:41 AM EDT [facility] Platelets 352 130 - 400 K/mcL LAB HEMETOLOGY METHOD 10/31/2024 10:41 AM EDT [facility] MPV 11.3(H) 7.0 - 11.0 FL LAB HEMETOLOGY METHOD 10/31/2024 10:41 AM EDT [facility] NRBC 0.0 <1.0 % LAB HEMETOLOGY METHOD 10/31/2024 10:41 AM EDT [facility] NRBC Absolute 0.00 <0.10 K/mcL LAB HEMETOLOGY METHOD 10/31/2024 10:41 AM EDT [facility] Blood Venous blood specimen / Unknown Venipuncture / Unknown 10/31/2024 6:38 AM EDT 10/31/2024 9:28 AM EDT us Salvador Gary MD LAB BLOOD ORDERABLES Final Resu lt [facility] [address] [place] [address], documented in this encounter Visit Diagnoses Diagnosis Essential (primary) hypertension Unspecified essential hypertension Lactose intolerance, unspecified Gastro-esophageal reflux disease without esophagitis documented in this encounter Care Teams Aviation Electrician Relationship Specialty Start Date End Date Boyd Lao MD [address] [place] [phone] PCP - General Internal Medicine 01/16/17 documented as of this encounter
--- OUTSIDE RECORDS SUMMARY | 2025-06-26 22:33 | XMS_ITS | Encounter Summary ---
Author Organization [facility] Address [address] [place] [address] Care Team Providers Care Extension Service Supervisor Name Role Phone Boyd Lao MD Primary Care Provider [phone] Encounter Details Date Type Department Care Team (Late st Contact Info) Description 11/06/2024 Lab Requisition [facility] - Main Lab 299 [facility] [employer] [place] [address] Salvador Gary MD [address] [place] [address] Essential (primary) hypertension; Lactose intolerance, [...] Associated Diagnosis Comments COMPLETE BLOOD COUNT Routine 11/07/2024 5:20 AM EDT Essential (primary) hypertension Lactose intolerance, unspecified Gastro-esophageal reflux disease without esophagitis BASIC METABOLIC PANEL Routine 11/07/2024 5:20 AM EDT Essential (primary) hypertension Lactose intolerance, unspecified Gastro-esophageal reflux disease without esophagitis documented in this encounter Results * (ABNORMAL) Basic metabolic panel (11/07/2024 5:20 AM EDT) Sodium 142 133 - 145 mmol/L LAB CHEMISTRY METHOD 11/07/2024 10:01 AM [facility] Potassium 4.7 3.5 - 5.5 mmol/L LAB CHEMISTRY METHOD 11/07/2024 10:01 AM [facility] Chloride 112(H) 96 - 110 mmol/L LAB CHEMISTRY METHOD 11/07/2024 10:01 AM [facility] CO2 21 21 - 32 mmol/L LAB CHEMISTRY METHOD 11/07/2024 10:01 AM [facility] Anion Gap 9 3 - 11 LAB CHEMISTRY METHOD 11/07/2024 10:01 AM [facility] Glucose 78 70 - 100 mg/dL LAB CHEMISTRY METHOD 11/07/2024 10:01 AM [facility] BUN 17 5 - 25 mg/dL LAB CHEMISTRY METHOD 11/07/2024 10:01 AM [facility] Creatinine 0.86 0.50 - 1.10 mg/dL LAB CHEMISTRY METHOD 11/07/2024 10:01 AM [facility] eGFR 71 >=60 mL/min/1. 73m2 LAB CHEMISTRY METHOD 11/07/2024 10:01 AM [facility] Comment:Calculation based on the Chronic Kidney Disease Epidemiology Collaboration (CKD-EPI) equation refit without adjustment for race. BUN/Creatinine Ratio 19.8 LAB CHEMISTRY METHOD 11/07/2024 10:01 AM [facility] Calcium 8.5 8.5 - 10.5 mg/dL LAB CHEMISTRY METHOD 11/07/2024 10:01 AM [facility] Blood Venous blood specimen / Unknown 11/07/2024 5:20 AM EDT 11/07/2024 8:52 AM EDT us Salvador Gary MD LAB BLOOD ORDERABLES Final Resu lt [facility] [address] [place] [address], * (ABNORMAL) Complete blood count (11/07/2024 5:20 AM EDT) WBC 14.3(H) 4.8 - 10.8 K/mcL LAB HEMETOLOGY METHOD 11/07/2024 10:18 AM EDT [facility] RBC 2.50(L) 3.80 - 4.80 M/mcL LAB HEMETOLOGY METHOD 11/07/2024 10:18 AM EDT [facility] Hemoglobin 8.1(L) 11.5 - 16.0 g/dL LAB HEMETOLOGY METHOD 11/07/2024 10:18 AM EDT [facility] Hematocrit 27.5(L) 35.0 - 47.0 % LAB HEMETOLOGY METHOD 11/07/2024 10:18 AM EDT [facility] MCV 108.3(H) 79.0 - 98.0 FL LAB HEMETOLOGY METHOD 11/07/2024 10:18 AM EDT [facility] LAB Comment:SHORT SAMPLE MCH 31.9 27.0 - 32.0 pcg LAB HEMETOLOGY METHOD 11/07/2024 10:18 AM EDT [facility] MCHC 29.5(L) 32.0 - 37.0 g/dL LAB HEMETOLOGY METHOD 11/07/2024 10:18 AM EDT [facility] RDW 17.2(H) 11.0 - 15.0 % LAB HEMETOLOGY METHOD 11/07/2024 10:18 AM EDT [facility] Platelets 556(H) 130 - 400 K/mcL LAB HEMETOLOGY METHOD 11/07/2024 10:18 AM EDT [facility] MPV 11.1(H) 7.0 - 11.0 FL LAB HEMETOLOGY METHOD 11/07/2024 10:18 AM EDT [facility] NRBC 0.1 <1.0 % LAB HEMETOLOGY METHOD 11/07/2024 10:18 AM EDT [facility] NRBC Absolute 0.02 <0.10 K/mcL LAB HEMETOLOGY METHOD 11/07/2024 10:18 AM EDT [facility] Blood Venous blood specimen / Unknown Venipuncture / Unknown 11/07/2024 5:20 AM EDT 11/07/2024 9:07 AM EDT us Salvador Gary MD LAB BLOOD ORDERABLES Final Resu lt [facility] [address] [place] [address], documented in this encounter Visit Diagnoses Diagnosis Essential (primary) hypertension Unspecified essential hypertension Lactose intolerance, unspecified Gastro-esophageal reflux disease without esophagitis documented in this encounter Care Teams Extension Service Supervisor Relationship Specialty Start Date End Date Boyd Lao MD [address] [place] [phone] PCP - General Internal Medicine 01/16/17 documented as of this encounter
--- OUTSIDE RECORDS SUMMARY | 2025-06-26 22:33 | XMS_ITS | Patient Health Record ---
Author Organization [facility] Address [address] [place] [address] Care Team Providers Care Farm Assistant Name Role Phone Kevyn Mckeon Primary Care Provider Jagjit Redding Jr Unavailable [phone] Allergies Allergen (clinical drug ingredient) Drug/Non Drug Allergy documented on EMR Reaction Allergy Type Onset Date Status bacitracin Antibiotic Unknown Drug Allergy Activ e Sulfa Unknown Drug Allergy Active Reason For Referral No Information Medications Medication SIG (Take, Route, Frequency, Duration) Notes Start Date End Date Status Lisinopril 20 MG Tablet 5 ml Orally Once a day Active DULoxetine HCl 30 MG Capsule Delayed Release Particles 1 capsule Orally Once a day; Duration: 30 day(s) Active Esomeprazole Magnesium 40 MG Capsule Delayed Release 1 capsule Orally Once a day; Duration: 30 day(s) 06/30/2022 Active Magnesium Oxide 400 MG Tablet 1 tablet as needed Orally Once a day; Duration: 30 day(s) Active ZyrTEC Allergy 10 MG Tablet 2 tablets Orally as needed for allergies Active Ibuprofen 800 MG Tablet 1 tablet with fo od or milk as needed Orally every 8 hrs Active PARoxetine HCl 20mg Not-Taking/PRN Probiotic & Acidophilus Ex St - Capsule as directed Orally Active Nabumetone 500mg Not -Taking/PRN Sertraline HCl 50 MG Tablet 1 tablet Orally twicea day Active Loperamide HCl 2mg 1 capsule as needed Orally prn Active Loperamide HCl 2 MG Capsule 1 capsule as needed Orally Four times a day Active Dicyclomine HCl 10 MG Capsule 2 capsules Orally three times a day Active amLODIPine Besylate 10 MG Tablet 1 tablet Orally Once a day Active LORazepam 1mg 1 tablet as needed Orally BID Active Immunizations Vaccine Route Administration Date Status Comme nts Influenza Unknown 03/03/2018 Administered Influenza Unknown 03/03/2020 Administered Influenza Unknown 04/06/2022 Administered Social History Tobacco Use: Social History Observation Description Date Details (start date - stop date) Current Smoker NA - NA Social History Drugs/Alcohol: Social Info Question Answer Notes Alcohol Screen Did you have a drink containing alcohol in the past year? Yes How often did you have a drink containing alcohol in the past year? 4 or more times a week (4 points) How many drinks did you have on a typical day when you were drinking in the past year? 1 or 2 drinks (0 point) How often did you have 6 or more drinks on one occasion in the past year? Never (0 point) Points 4 Interpretation Positive Tobacco Use: Social Info Question Answer Notes Tobacco Use/Smoking Patient is a current smoker How often do you smoke cigarettes? every day How many cigarettes a day do you smoke? 6-10 How soon after you wake up do you smoke your first cigarette? 6-30 minutes Are you interested in quitting? 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) Active confirmed Problem Irritable bowel syndrome with diarrhea (528132556) Irritable bowel syndrome with diarrhea (K58.0) Active confirmed Problem Erosive esophagitis (28221773) Erosive esophagitis (K22.10) Active confirmed Problem Oliveira esophagus (544102445) 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 Problem Barium swallow abnormal (137739991) Abnormal barium swallow (R93.3) Active confirmed Problem Vomiting without nausea (233819851453373) Non-intractable vomiting without nausea, unspecified vomiting type (R11.11) Active confirmed Problem Clostridioides difficile infection (464645279) Clostridioides difficile infection (A49.8) Active confirmed Problem Anal lesion (K62.9) Active confirmed Plan Of Treatment Future Test Test Name Order Date UPPER GI ENDOSCOPY 12/17/2014 COLONOSCOPY 12/17/2014 UPPER GI ENDOSCOPY 04/27/2017 UPPER GI ENDOSCOPY 07/13/2022 Insurance Providers Payer Name Payer Address Payer Phone Subscriber Number Group Number Insured Name Patient Relationship to Insured Coverage Start Date Coverage End Date [facility] [address] [facility] [place] [phone] [id number] ANAND KRAFT Self - patient is the insured Medical (General) History Medical History History ICD Code irritable bowel [...]
--- OUTSIDE RECORDS SUMMARY | 2025-06-26 22:33 | XMS_ITS | Data Portability ---
Author Organization [place] - [facility], Allergy Address [address] [place] [id number] Care Team Providers Care Director Software Name Role Phone ROBIN TONG Primary Care Provider [phone] Assessment Encounter Date Assessment Date Assessment LastModified [...] mupirocin 2 % topical ointment 2024 025 [id number], [address] [facility], [place], [place], [id number], 05/12/2025 15:15:23 Patient TargetsNo targets recorded. Patient Instructions Encounter Date Encounter Id Patient Instructions Last Modified By Organization Details Last Modified Time 05/12/2025 [id number] - Apply antibiotic cream to the affected [...] Details Recorded Time Abnormal auditory perceptio n [id number] Active 2018 Other abnormal auditory perceptio ns, bilateral ; Note: Date Diagnosed : 11/27/2018 1:39 PM (H93.293) Not Available [facility] 4 02:17:48 Impacted cerumen of bilateral ears [id number] 63079 Active 2018 Impacted cerumen, bilateral ; Note: Date Diagnosed : 11/27/2018 1:39 PM (H61.23) KARI MARTIN MD [address] [place] [address], [place], [address] , [facility] 5 15:14:43 Impacted cerumen 00081428 Active 2018 Impacted cerumen; Note: Date Diagnosed : 9 1:23 PM (380.4) Not Available [facility] 4 02:18:31 Sensorine ural hearing loss of bilateral ears 327147558 Active 2020 Sensorine ural hearing loss, bilateral ; Note: Date Diagnosed : 01/05/2021 2:29 PM (H90.3) Not Available [facility] 4 02:16:47 Celluliti s of face 019297560 Active 2024 KARI MARTIN MD [address] [place] [address], [place], [address] , [facility] 5 15:14:38 Problem Notes None recorded. Medical Equipment None Reported. Allergies Allergen ID Allergen Name Allergen Category Reaction Reaction Severity Criticality Documentation Date Start Date Code Code System Note Provider Name and Address Organization Details Recorded Time 78846 Substance with sulfonami de structure and antibacte rial mechanism of action (substanc e) medicatio n other Not available Not available 11/14/2023 60208 8003 SNOMED React ion: unkno wn, unspe cifie d;; Not Available [facility] 4 00:49:43 Medications Name Sig Start Date Stop Date Status Note LastModified by Organization Details LastModified Time ibuprofen 800 mg tablet 05/12 completed Medicati on ID: [id number] D uration Value: 30 Brand Name: ibuprofe [...] mg tablet 05/12 completed Medicati on ID: [id number] D uration Value: 90 Brand Name: amlodipi [...] mg tablet 05/12 completed Medicati on ID: [id number] D uration Value: 30 Brand Name: sertrali [...] mg tablet 04/15 completed Medicati on ID: [id number] D uration Value: 90 Brand Name: lisinopr [...] mg capsule 05/12 completed Medicati on ID: [id number] D uration Value: 30 Brand Name: dicyclom ine Send Method: E-Prescr ibed Sub s Allowed: subs OK Speci al Instruct ion: TK 1 C PO TID Medi cationGe nericNam e: dicyclom ine Not Available Not Available Not Available loperamid e 05/12 completed Medicati on ID: [id number] B rand Name: loperami de Send Method: E-Prescr ibed Sub s Allowed: subs OK Medic ationGen ericName : loperami de Not Available Not Available Not Available Vitals Date Recorded Body height Body mass index (BMI) Body weight Systolic And Diastolic Provider Name and Address Organization Details Last Updated DateTime 05/12/2025 160.02 cm 14.5 kg/m2 91368.57 g 142/68 mm[Hg] Savannah Wooten [place] - [facility] 05/12/2025 14:24:50 Social History None recorded. Functional Status None recorded. Mental Status None recorded. Family History Nothing Reported. Medical History Condition Response Hypertension Y Gynecological HistoryNo gynecological history recorded. Obstetrics History GPAL:G 0 P 0 0 0 0 Past Encounters Encounter ID Performer Location Encounter Start Date Encounter Closed Date Diagnosis/Indication Diagnosis SNOMED-CT Code Diagnosis ICD10 Code Diagnosis IMO Codes Diagnosis Note [id number] KARI MARTIN MD [facility] [address] [place] [address] 05/12/2025 14:14:31 05/12/2025 16:27:05 Cellulitis of face 120018532 L03.211 194 Impacted c erumen of bilateral ears [id number] 119537 H61.23 824928 Health Concerns Section Related Observation LastModified by Organization Detai ls LastModified Time None Recorded Concern Status LastModified by Organization Details LastModified Time None Recorded Advance Directives Directive None Recorded Payers Insurance Date Sequence Insurance Name Policy Number Policy Casillas Covered Member ID Casillas Member ID Guarantor Name 06/04/2025 1 [facility] [id number] 01 Kiesha Eason Jenaro Perez [id number] Kiesha Perez 06/04/2025 1 [facility] - MEDICARE ADVANTAGE PLAN (MEDICARE REPLACEMENT HMO) [id number] 01 Kiesha Perez [id number] Kiesha Perez Notes Date Note Type Note [...] with her family. KARI MARTIN MD [address] [place] [address], [phone], [facility] - [facility] 05/14/2025 09:23:47 OBGyn Episode No OBEpisode recorded.
[2025-06-26 22:35] LABS: MANUAL DIFF FLAG NO
[2025-06-26 22:37] LABS: Hematocrit 30.2 % (37.0-47.0); Hemoglobin 9.9 g/dl (12.0-16.0); Imm Gran Abs Auto 0.08 X10*3/uL (0.00-0.03); Imm Gran Pct Auto 0.8 % (0.0-0.4); Lymphocytes Absolute Auto 1.7 X10*3/uL (1.2-4.9); Mean Corpuscular HGB Conc 32.8 g/dl (31.0-35.0); Mean Corpuscular Hemoglobin 30.7 pg (27.0-33.0); Mean Corpuscular Volume 93.5 fL (80.0-98.0); NRBC Abs Auto 0.030 X10*3/uL (0.0-0.012); NRBC Pct Auto 0.3 /100WBC (0.0-0.2); Platelet Count 292 X10*3/uL (160-400); Red Blood Count 3.23 X10*6/uL (4.20-5.50); White Blood Count 9.8 X10*3/uL (4.8-10.8)
[2025-06-26 22:51] LABS: Alanine Aminotransferase 9 U/L (0-31); Albumin Level 3.9 g/dL (3.5-5.0); Alkaline Phosphatase 135 U/L (39-117); Anion Gap 14 (12-20); Aspartate Amino Transferase 18 U/L (5-31); Blood Urea Nitrogen 17 mg/dL (9-16); Calcium 9.2 mg/dL (8.4-10.2); Carbon Dioxide 19 mmol/L (22-29); Chloride 109 mmol/L (96-108); Creatinine Clr Calc Pharmacy 38.9; Estimated Glomerular Filt Rate > 60; Potassium 3.2 mmol/L (3.3-5.1); Sodium 139 mmol/L (135-145); Total Protein 6.5 g/dL (6.5-8.0)
[2025-06-26 23:12] LABS: Resp Syncy Virus RNA Qual PCR NEGATIVE (Negative); SARS COV2 PCR INHOUSE NEGATIVE (Negative)
--- NOTE | 2025-06-26 23:25 | ED_ITS ---
HPI - Back Pain/Injury General Chief Complaint: Back Pain/Injury Stated Complaint: Back pain x2 days Time Seen by Provider: 06/26/25 23:23 Source: patient and EMS Mode of arrival: EMS Limitations: no limitations History of Present Illness ED Provider: Audi MEHTA HPI Narrative: The patient is a 75-year-old female presenting with approximately three weeks of progressively worsening low back pain. She describes the initial pain as ?cramping? that evolved into intermittent muscle spasms across the lower back. Over the past 1.5 weeks the severity has increased, and during the last two days the pain has become excruciating with any movement, standing, twisting, breathing deeply. She localizes the pain diffusely across the lower back, extending into her sides and chest. The patient denies any recent trauma or falls. She denies fever or upper-respiratory symptoms. The patient reports history of a cervical diskectomy in 2021, denies any lumbar surgical history. The patient reports she has been attempting Tylenol without relief. The patient states she would like to avoid narcotics if able. Related Data Home Medications ?Medication ?Instructions ?Recorded ?Confirmed amlodipine 10 mg tablet 1 tab PO DAILY 06/12/2206/03 sertraline 50 mg tablet 1 tab PO BID 06/12/22 dicyclomine 20 mg tablet 20 mg PO QID PRN muscle spas m 04/09/25 06/27/25 lorazepam 1 mg tablet 1 mg PO BID PRN anxiety 02/2406/27/25 pantoprazole 40 mg tablet,delayed 40 mg PO DAILY 04/0906/27/25 release Previous Rx's ?Medication ?Instructions ?Recorded cefuroxime axetil 250 mg tablet 500 mg (2 x 250 mg) PO BID 7 days 06/27/25 #28 tabs Allergies Allergy/AdvReac Type Severity Reaction Status Date / Time Sulfa (Sulfonamide Allergy Intermediate ITCHING/DARSHAN Verified 06/26/25 21:59 Antibiotics) (SULFA H (SULFONAMIDE ANTIBIOTICS)) fluticasone (From Flonase) Allergy Mild Unknown Verified 06/26/25 21:59 sulfadiazine Allergy Unknown Unknown Verified 06/26/25 21:59 tree nut (TREE NUT) AdvReac Intermediate GI UPSET Verified 06/26/25 21:59 cetirizine (From Zyrtec) AdvReac Mild nervousness Verified 06/26/25 21:59 prednisone AdvReac Mild Dizziness Verified 06/26/25 21:59 acetaminophen (From PERCOCET) AdvReac Unknown NAUSEA Verified 06/26/25 21:59 meperidine (From Demerol) AdvReac Unknown Nausea Verified 06/26/25 21:59 oxycodone (Percocet) AdvReac Unknown Nausea Verified 06/26/25 21:59 Review of Systems 2 Review of Systems: Yes all other systems are reviewed and are negative [facility] Past Medical History Medical History Chronic pain syndrome Severe major depression Postlaminectomy syndrome Thrombosed hemorrhoids Hypertension Anxiety Surgical History History of bunionectomy History of hammer toe correction History of foot surgery History of D&C History of hand surgery Family History Family History Father Hypertension Heart disease Mother History of lumpectomy Social History Social History Household Members: None Housing: Condominium Do you presently have visiting nurse or other home services: No Alcohol intake: current Alcohol intake frequency: does not drink Alcohol type: wine Comment: pt using furnitures instead of walker, pt can be inpatient at times Patient Tobacco Use Status: Current everyday Tobacco user Tobacco use type: Cigarette Cigarettes Per Day: 8 Smoked in Last 30 Days: Yes e-Cigarette/Vaping Use: Currently Using Second Hand Smoke Exposure: No Use of substances other than those prescribed or required for medical reasons: No Advance Directives: Yes Advance Directives on File: Yes Advance Directives Date on File: 06/26/25 Do you have a plan to hurt others: No Plan service: No Current occupational status: retired Physical Exam 2 Vital Signs: Vital Signs: Last Vital Signs Temp 97.6 F 06/27/25 08:04 Pulse 82 06/27/25 08:52 Resp 17 06/27/25 08:04 BP 146/82 H 06/27/25 08:52 Pulse Ox 96 06/27/25 08:52 O2 Del Method Room Air 06/27/25 08:04 BMI result Body Mass Index 18.3 CONSTITUTIONAL: The patient appears frail, cachectic, chronically ill, but otherwise non-toxic, well nourished and in no acute distress. Vital signs as documented. HEAD: Atraumatic, normocephalic. EYES: EOMs grossly intact, pupils equal, conjunctiva clear, no exudate. ENT: Nares patent, no discharge. Airway patent, no audible stridor, visible mucosa is pink and moist without noted lesions. NECK: Trachea is midline, no obvious masses or gross abnormalities. CHEST: Symmetric movement, normal appearance. LUNGS: LS present and CTAB, no w/r/r. Non-labored work of breathing. CARDIAC: Regular Rhythm, S1/S2 appreciated, no murmurs, rubs or gallops. ABDOMEN: Abdomen soft and non-tender x4 quadrants, no palpable masses or organomegaly. : Deferred. EXTREMITIES: Normal tone, moves all extremities spontaneously without reported pain. No obvious acute injury or deformity noted. NEURO: Alert and oriented x3, CN II-XII appear grossly intact. Cerebellar Functioning grossly intact. No obvious sensory or motor deficits. Speech clear and appropriate. PSYCH: normal affect, appropriate eye contact, fluid speech, with appropriate response to questioning. No reported suicidality or homicidality. SKIN: Warm, dry, color appropriate, normal turgor. No rashes noted. Course Course Course Narrative: Time: 09:24 Date: 06/27/25 Provider: TYSON Galvez Patient in physician observation for case management needs. No acute events reported overnight.? In summary, patient presented for a few weeks of lower back pain. She denies any dysuria, hematuria or urinary frequency however states she is voiding less often. Her blood work appears to be at baseline. Her urine shows trace leukocytes, 6-10 WBCs and 4+ urine bacteria. CT abdomen/pelvis shows bladder wall thickening. I have concern for UTI. Discussed with patient, will start patient on Ceftin. Culture pending. Completed MOLST form with patient at bedside. She is alert, oriented and capable of making own decisions. Patient tells me she is a DNR/DNI. Please refer to completed document. Pending PT/case management evals. Time: 09:41 Date: 06/27/25 Provider: TYSON Galvez Physician observation ended at 940. Patient evaluated by physical therapy going to recommending discharge home with services. Case management has arranged services for patient. She is being discharged home, her brother will be driving her home today. Script for Ceftin sent to pharmacy for UTI. stable for discharge at this time. Medications Administered Generic Name Dose Route Start Last Admin Trade Name Freq PRN Reason Stop Dose Admin Amlodipine Besylate 10 mg 06/27/25 09:00 06/27/25 08:38 Amlodipine Besylate 10 Mg Tablet PO 10 mg DAILY POOL Administration Protocol Lorazepam 1 mg 06/27/25 08:08 06/27/25 08:38 Lorazepam 1 Mg Tablet PO 1 mg BID PRN Administration Anxiety Sertraline HCl 50 mg 06/27/25 09:00 06/27/25 08:39 Sertraline Hcl 50 Mg Tablet PO Not Given BID POOL Discontinued Medications Generic Name Dose Route Start Last Admin Trade Name Freq PRN Reason Stop Dose Admin Acetaminophen 975 mg 06/26/25 23:41 06/26/25 23:57 Acetaminophen 325 Mg Tablet PO 06/26/25 23:42 975 mg ONCE ONE Administration Iohexol 85 ml 06/27/25 01:49 06/27/25 02:02 Iohexol 350 Mg/Ml 100 Ml Infus..Btl IV 06/27/25 01:50 85 ml ONCE ONE Administration Ketorolac Tromethamine 15 mg 06/27/25 02:40 06/27/25 02:55 Ketorolac Tromethamine 15 Mg/Ml Vial IVPUSH 06/27/25 02:41 15 mg ONCE ONE Administration Potassium Chloride 40 meq 06/26/25 23:43 06/26/25 23:57 Potassium Chloride Er 20 Meq Tab.Er.Prt PO 06/26/25 23:44 40 meq ONCE ONE Administration Medical Decision Making Medical Decision Making MDM Narrative: 12:02 AM 06/27/2025 (Demarcus MEHTA): The patient is a 75-year-old female presenting with approximately three weeks of progressively worsening low back pain. She describes the initial pain as ?cramping? that evolved into intermittent muscle spasms across the lower back. Over the past 1.5 weeks the severity has increased, and during the last two days the pain has become excruciating with any movement, standing, twisting, breathing deeply. She localizes the pain diffusely across the lower back, extending into her sides and chest. The patient denies any recent trauma or falls. She denies fever or upper-respiratory symptoms. The patient reports history of a cervical diskectomy in 2021, denies any lumbar surgical history. The patient reports she has been attempting Tylenol without relief. The patient states she would like to avoid narcotics if able. On exam the patient is frail, cachectic, appears chronically ill. There is increased pain with deep respiration, positive CVA tenderness on Left. The patient will be evaluated with CT imaging to ensure no compression fracture, PE, or other acute pathology. Pending unremarkable CT evaluation patient may require PT/case management for her reported decreased ambulatory status. 4:48 AM 06/27/2025 (Demarcus MEHTA): The patient's CT chest, abdomen, and pelvis has resulted and shows no acute pathology. No fracture, renal stone, PE, or other acute process. Patient will be held for PT and case management consultation, patient has been placed in clinician observation status. Admission/Observation Consideration of admission/observation: Escalation of care including admission/observation considered Lab Data MDM Lab Attestation statement: I reviewed the patient's lab results. 06/26/25 22:31 06/26/25 22:31 Labs: Lab Results 06/26/25 06/27/25 Range/Units 22:31 01:26 WBC 9.8 (4.8-10.8) X10*3/uL RBC 3.23 L (4.20-5.50) X10*6/uL Hgb 9.9 L (12.0-16.0) g/dl Hct 30.2 L (37.0-47.0) % MCV 93.5 (80.0-98.0) fL MCH 30.7 (27.0-33.0) pg MCHC 32.8 (31.0-35.0) g/dl RDW 18.0 H (11.0-16.0) % Plt Count 292 D (160-400) X10*3/uL MPV 10.1 (9.4-12.3) fL Immature Gran % (Auto) 0.8 H (0.0-0.4) % Neut % (Auto) 71.3 (45-73) % Lymph % (Auto) 17.8 L (20-40) % [place] % (Auto) 7.9 (2-11) % Eos % (Auto) 1.6 (0-4) % Baso % (Auto) 0.6 (0-2) % Lymph # (Auto) 1.7 (1.2-4.9) X10*3/uL [place] # (Auto) 0.8 (0.1-1.2) X10*3/uL Eos # (Auto) 0.2 (0.0-0.4) X10*3/uL Baso # (Auto) 0.1 (0.0-0.2) X10*3/uL Abs Immat Gran (auto) 0.08 H (0.00-0.03) X10*3/uL Absolute Neuts (auto) 7.0 (2.0-8.3) x10*3/uL Absolute Nucleated RBC 0.030 H (0.0-0.012) X10*3/uL Nucleated RBC % (auto) 0.3 H (0.0-0.2) /100WBC Sodium 139 (135-145) mmol/L Potassium 3.2 L (3.3-5.1) mmol/L Chloride 109 H (96-108) mmol/L Carbon Dioxide 19 L (22-29) mmol/L Anion Gap 14 (12-20) BUN 17 H (9-16) mg/dL Creatinine 0.88 (0.5-1.4) mg/dL Estim Creat Clear Calc 38.9 Estimated GFR > 60 Random Glucose 88 (60-115) mg/dL Calcium 9.2 D (8.4-10.2) mg/dL Total Bilirubin 0.4 (0.0-1.0) mg/dL AST 18 (5-31) U/L ALT 9 (0-31) U/L Alkaline Phosphatase 135 H (39-117) U/L Total Protein 6.5 (6.5-8.0) g/dL Albumin 3.9 (3.5-5.0) g/dL Urine Color Yellow Urine Appearance Cloudy Urine pH 6.0 (5.0-9.0) Ur Specific [place] 1.020 (1.005-1.025) Urine Protein Trace (Neg-Trace) mg/dL Urine Glucose (UA) Negative (Negative) mg/dL Urine Ketones Negative (Negative) mg/dL Urine Blood Negative (Negative) Urine Nitrite Negative (Negative) Ur Leukocyte Esterase Trace H (Negative) Urine RBC 0-2 (0-2) /HPF Urine WBC 6-10 H (0-5) /HPF Ur Squamous Epith Cells 6-10 (0-2) /HPF Urine Bacteria 4+ (None Seen) Hyaline Casts 0-2 (0-2) /LPF Influenza Type A (PCR) NEGATIVE (Negative) Influenza Type B (PCR) NEGATIVE (Negative) RSV RNA Qual (PCR) NEGATIVE (Negative) SARS-CoV-2 RNA (RT-PCR) NEGATIVE (Negative) Radiology Impression Discussion of test interpretation with radiology: I have reviewed the radiologist's reading. Radiologist Impression: CT abdomen and pelvis with contrast Comparison: None provided Findings: Large hiatal hernia containing portion of the stomach. Lung bases are clear. Heart size is mildly enlarged. Liver, gallbladder, spleen, adrenal glands are unremarkable. Right kidney is ptotic, in the mid right abdomen. There is a 1 cm left renal cyst. No hydronephrosis of either kidney. No bowel obstruction, pneumoperitoneum, or pneumatosis. Appendix not visualized. No ascites. Moderate amount of fecal loading in the colon. Extensive calcified plaquing of the aorta with shelf-like areas of plaque. Severe calcified plaquing of the common iliac arteries, external iliac arteries and common femoral arteries. Uterus and adnexa are unremarkable. Urinary bladder is distended. Previous cement augmentation of L3 compression deformity. Chronic appearing compression deformities of T12, L1, L2, L3 and L4. Old healed S1 sacral fracture. Multilevel degenerative change of the lumbar spine. IMPRESSION: No acute findings. This document has been electronically signed by: Naseem Unger MD on 06/27/2025 02:43:52 CT angiography chest with contrast. 3D Postprocessing. Comparison: None provided Findings: Moderate cardiomegaly. The thoracic aorta is normal caliber. No acute pulmonary embolus. Large hiatal hernia. The lungs are clear. Mild centrilobular emphysema. Chronic appearing compression deformities at T10, T12 and L1. IMPRESSION: 1. No pulmonary emboli. This document has been electronically signed by: Naseem Unger MD on 06/27/2025 02:48:52 External Record Review External record reviewed: Outpatient record and Prior outpatient labs Prescription Management I considered prescription management with: Pain Medication Discharge Plan Discharge Clinical Impression: Urinary tract infection, Low back pain, Physical deconditioning Patient Disposition: Home, Self-Care Instructions: Urinary Tract Infection in Women (ED), Acute Low Back Pain (ED) Additional Instructions: You were evaluated in the ED today for low back pain x a few weeks. Your blood work is reassuring. Your urine is concerning for infection. The CT scan of your abdomen shows thickening of your bladder wall, concerning for infection, otherwise reassuring. This may be contributing to your low back pain. I am treating you for a urinary tract infection. Ceftin as an antibiotic. Take this twice daily for the next 7 days. Do not stop taking this earlier skip any doses. You were evaluated by physical therapy today who is recommending that you be discharged home with services. Case management has helped to arrange services for you at home. Continue Tylenol/Motrin at home as needed for pain/discomfort. Continue lidocaine patches. Make sure you are staying well hydrated. Follow up with your primary care provider. Return with any new or worsening symptoms. In the case of an emergency call 911. Prescriptions: New cefuroxime axetil 250 mg tablet 500 mg PO BID 7 Days Qty: 28 0RF No Action amlodipine 10 mg tablet 1 tab PO DAILY sertraline 50 mg tablet 1 tab PO BID pantoprazole 40 mg tablet,delayed release (DR/EC) 40 mg PO DAILY dicyclomine 20 mg tablet 20 mg PO QID PRN (Reason: muscle spasm) lorazepam 1 mg tablet 1 mg PO BID PRN (Reason: anxiety) Referrals: [facility] [Outside] Print Language: Icelandic
[2025-06-26] MEDS: Potassium Chloride ER 20 MEQ TAB.ER.PRT 40 MEQ PO (23:57)
[2025-06-27 01:33] LABS: Appearance Urine Cloudy; Glucose Urine UA Negative (Negative); PH 6.0 (5.0-9.0); Specific Gravity - Urine 1.020 (1.005-1.025); UMIC TRIGGER UACC YES
[2025-06-27 01:38] LABS: UACC Culture Trigger YES
[2025-06-27] MEDS: iohexoL 350 MG/ML 100 ML INFUS..BTL 85 ML IV (02:02)
[2025-06-27 03:08] VITALS: BP 127/58; PULSE 67; RESP 16; TEMP 36.3; O2SAT 95
[2025-06-27 06:25] VITALS: BP 138/60; PULSE 86
[2025-06-27 08:04] VITALS: BP 146/82; PULSE 82; RESP 17; TEMP 36.4; O2SAT 96
--- NOTE | 2025-06-27 08:18 | PC.NURSE ---
PT evaluation being completed at this time.
--- NOTE | 2025-06-27 08:40 | PC.NURSE ---
medication reconciliation completed. provider notified/aware. pt medicated per provider order.
[2025-06-27 08:52] VITALS: BP 146/82; PULSE 82; O2SAT 96
--- NOTE | 2025-06-27 09:54 | MHC.CM.ED ---
Received case management consult overnight. Patient came to ER d/t back pain. Work up essentially negative. Physical therapy eval completed. Home with services is recommended. Met with patient in regards to discharge planning. Patient lives alone, ambulates with a walker, and has a home health aide from [facility]. PCP verified. Patient has been active with [facility] in the past and is requesting return referral for physical therapy. Patient also requesting Mayra be her therapist again. Patient's brother will transport patient home at 11am. Ylui ROBERTO and Francine MEHTA aware. Continue to monitor for d/c needs.
[2025-06-27 11:03] VITALS: BP 135/68; PULSE 66; RESP 16; O2SAT 97
[2025-06-27 11:13] VITALS: BP 135/68; PULSE 66; RESP 16; TEMP 36.7; O2SAT 97
== END 2025-06-27 11:14 | disposition home or self-care (01) ==
PROVIDERS: Physician Assistant; Emergency Provider Emergency Medicine; PCP Family Medicine
DX: N39.0 Urinary tract infection, site not specified (principal); M54.50 Low back pain, unspecified; M62.830 Muscle spasm of back; Z79.899 Other long term (current) drug therapy; F17.210 Nicotine dependence, cigarettes, uncomplicated; Z03.818 Encounter for observation for suspected exposure to other biological agents ruled out
CPT/HCPCS: 36415; 71275; 74177; 80053; 81001; 85025; 87086; 87088; 87186; 87637; 96374; 97161; 99284; J1885; Q9967

== ENCOUNTER → 2025-06-27 | Outpatient (BNV) | payer MEDICARE, SELFPAY | PROVIDERS: Emergency Provider Emergency Medicine; PCP Family Medicine; Visit Provider Radiology Diagnostic Radiology | DX: R10.A2 Flank pain, left side (principal); R09.1 Pleurisy; R05.9 Cough, unspecified; M54.9 Dorsalgia, unspecified | CPT/HCPCS: 71275; 74177 ==